=== PATIENT | male | born 1945 | race Caucasian/White ===

== ENCOUNTER 2017-07-27 15:57 | Inpatient (IN) | payer MEDICARE, OTHER, SELFPAY ==
[2017-07-27] VITALS (8 sets, daily range): BP systolic 109–151; BP diastolic 71–80; PULSE 100–121; RESP 15–20; TEMP 36.1–37.1; O2SAT 94–95; BMI 34.4; BMI 34.5; BMI 35.4
--- NOTE | 2017-07-27 16:30 | RAD_ITS ---
STUDY: X-RAY CHEST REASON FOR EXAM: Male, 71 years old. Wheezing. Abdominal pain. TECHNIQUE: Single frontal view of the chest. COMPARISON: 01/08/2016 FINDINGS: There is stable mild hyperexpansion. There is no demonstrated pleural abnormality. There is borderline cardiomegaly unchanged. Normal mediastinum and shaji. Normal visualized pulmonary arteries. There is aortic tortuosity unchanged. Normal visualized thoracic spine. Normal visualized ribs, clavicles, and shoulders. There is no demonstrated abnormality of the visualized soft tissue structures of the upper abdomen. RAD/Chest 1 View (Portable) IMPRESSION: Stable cardiomegaly with hyperexpansion. No acute pathology. Electronically Signed: Eugenio Santiago MD at 17:04 EST , Service support ,
--- NOTE | 2017-07-27 16:30 | CT_ITS ---
CT Abdomen And Pelvis W/O Contrast INDICATION: ABDOMINAL PAIN IN THE RIGHT LOWER ABDOMEN X3 WEEKS LIVER TRANSPLANT IN Jul COMPARISON: None TECHNIQUE: Noncontrast axial CT examination of the abdomen and pelvis with coronal and sagittal reformatted images. Radiation dose optimization technique applied. FINDINGS: Visualized lung bases are clear. The heart size is normal. There is marked wall thickening of the visualized distal esophagus and multiple enlarged lymph nodes are seen adjacent to the distal esophagus, measuring up to 1.5 cm in size. The stomach is decompressed. There is severe wall thickening of the duodenum with marked surrounding fat stranding and multiple prominent lymph nodes in the mesentery measuring up to 2.3 cm. The mid and distal small bowel is fluid-filled, but otherwise unremarkable. The colon is decompressed. The liver demonstrates postsurgical changes from liver transplant. No evidence of ductal dilatation. The spleen contains multiple calcified granulomas. The kidneys are without evidence of nephrolithiasis or hydronephrosis. There is no evidence of free air or free fluid. The osseous structures appear age-appropriate with degenerative disc disease at L5-S1.. CT/Abdomen/Pelvis without Cont IMPRESSION: Diffuse wall thickening of the distal esophagus with enlarged adjacent lymph nodes, could be reactive, neoplastic process is not excluded, further evaluation recommended. Marked focal wall thickening of the duodenum with severe adjacent fat stranding and multiple enlarged lymph nodes in the vicinity, compatible with duodenitis or neoplastic process, further evaluation recommended. Status post liver transplant. at 1754 Reported and signed by: Olya Swain MD Electronically Signed: Olya Swain MD at 16:52 EST Tel , Service support ,
--- NOTE | 2017-07-27 16:30 | EKG12_ITS ---
Test Reason : ABD PAIN Blood Pressure : / mmHG Vent. Rate : 106 BPM Atrial Rate : 106 BPM P-R Int : 194 ms QRS Dur : 118 ms QT Int : 342 ms P-R-T Axes : 047 036 003 degrees QTc Int : 454 ms Somatic/motion artifact Sinus tachycardia Right bundle branch block Confirmed by DARINEL AMBRIZ, OLLIE ([id number]), technical editor MARIEL COOPER ([id number]) on 07/28/2017 10:08:21 AM Referred By: HARVEY Confirmed By:OLLIE TENA MD
--- NOTE | 2017-07-27 16:33 | ED.VISSUMM ---
- ER Visit Summary Date of Service: 07/27/17 Chief Complaint: Abdominal pain History of Present Illness: The patient is a 71 M who is status post liver transplant in 2006. Presents today with upper and lower abdominal pain. Symptoms started about 3 weeks ago. They have been getting worse over the past 3 weeks. He has associated nausea and vomiting. He is not taking much by mouth. He said he never felt this way before. He denies any other surgical history. He does have a history of alcoholism. He most recently drank bout a week ago. He was drinking 2-3 drinks per day at that time. He is a smoker. Physical Examination: Afebrile. Tachycardic at 121. Blood pressure 109/76. Patient appears uncomfortable but not toxic or in distress. Skin is normal in color without jaundice or pallor. Heart is regular. Lungs show diffuse expiratory wheeze throughout. Abdomen is distended and tender to palpation over the upper hemiabdomen and in the suprapubic area. No guarding or rebound. Skin appears normal. No peripheral edema noted. Test Results: EKG, chest x-ray and troponin pending. CT abdomen pending. Lab work and urinalysis pending. Emergency Department Course and Treatment: Patient was treated with DuoNeb, morphine, Zofran, and IV fluids while awaiting results. White count 15.3, sodium 133, potassium 6, glucose 143, BUN 31, creatinine 1.99. Lipase normal. INR 1.4 and PTT 33.9. Troponin normal. Lactate normal. Urinalysis pending. EKG showed sinus rhythm at a rate of 106. No sign of acute ischemia or infarction. Chest x-ray showed stable changes with cardiomegaly. CT of the abdomen showed a thickened esophagus with reactive lymph nodes. He also had duodenal thickening with stranding. Neoplastic process was also considered. Patient received pain meds, nausea meds, and fluids. He also had breathing treatments, calcium, insulin, dextrose for his hyperkalemia. For his abnormal CT findings with stranding, he was treated with Cipro and Flagyl. Cultures are pending. Patient was discussed with Dr. Young who will be consulted on this patient for possible endoscopy. Hospitalist, Dr. Dick will admit. Treatment Plan: As above Disposition: Admission Impression: 1. Esophagitis 2. Duodenitis 3. Hyperkalemia This note was generated with Dragon dictation software. It may contain incorrect words, spelling, and punctuation that were not noted in review of the chart prior to signing ED Disposition - Plan for ED Patient: Chief Complaint: Abd Pain Referrals: Wilver Garcias MD [Primary Care Provider] -
[2017-07-27] MEDS: Ondansetron 4 MG/2 ML Vial IV ×2 (16:59→23:25)
[2017-07-27] MEDS: 0.9% Normal Saline 1,000 ML 125 ML IV (16:59)
[2017-07-27] MEDS: Ipratropium/Albuterol Sulfate 3 ML AMPUL.NEB INHALATION (16:59)
[2017-07-27 17:09] LABS: Absolute Lymphocyte Count 1.29 X10^3/ul (0.83-4.51); Absolute Neutrophil Count 12.3 X10^3/uL (2.0-7.7); Basophil# 0.06 X10^3/uL; Basophil% 0.4 % (0-1); Eosinophil# 0.31 X10^3/uL; Hematocrit 47.5 % (40-54); Hemoglobin 16.1 g/dl (13.0-16.5); Lymphocyte # 1.29 X10^3/ul (4.0); Lymphocyte % 8.4 % (19-41); Mean Corp Hgb Conc 33.9 g/gl (32-36); Mean Corpuscular Hgb 34.4 pg (27.0-32.0); Mean Corpuscular Volume 101.5 fL (80-94); Mean Platelet Vol. 11.2 fl (6.2-12.0); Monocyte# 1.26 X10^3/uL; Monocyte% 8.2 % (0-10); Neutrophil # 12.32 X10^3/uL (2.7-7.7); Neutrophil % 80.7 % (47-70); Platelet Count 372 K/mm3 (150-450); RBC Distribution Width CV 12.6 % (11.6-14.6); RBC Distribution Width SD 46.7 fl (35.1-43.9); Red Blood Count 4.68 M/mm3 (4.6-6.2); White Blood Count 15.3 K/mm3 (4.4-11.0)
[2017-07-27 17:11] LABS: International Normalized Ratio 1.4; Prothrombin Time (Protime)PT. 16.4 SECONDS (11.7-14.9)
[2017-07-27 17:12] LABS: Partial Thromboplast Time 33.9 Seconds (24.1-36.2)
[2017-07-27 17:13] LABS: POSITIVE COUNT NO; POSITIVE DIFFERENTIAL NO; POSITIVE MORPHOLOGY NO
[2017-07-27 17:48] LABS: Lactic Acid 0.9 mmol/L (0.4-2.0)
[2017-07-27 17:49] LABS: ALB/GLOB Ratio 0.7 RATIO (0.9-2.4); AST(SGOT) 20 U/L (15-37); Alanine Aminotransfer ALT/SGPT 29 U/L (16-61); Albumin, Serum 2.9 g/dL (3.2-5.0); Alkaline Phosphatase 101 U/L (45-117); Anion Gap 9 (5-15); BUN 31 mg/dL (7-18); BUN/Creat Ratio 15.6 RATIO (10-20); Calcium,Total 8.7 mg/dL (8.5-10.1); Chloride 103 mmol/L (98-107); Creatinine, Serum 1.99 mg/dL (0.70-1.30); EST Glomerular Filtration Rate 35 mL/min (>60); Est Glom Filt Rate - Afr Amer 43 mL/min (>60); Estimated Creatinine Clearance 31.83 ml/min; Globulin 4.2 g/dL (2.2-4.2); Glucose 143 mg/dL (74-106); Lipase 41 U/L (73-393); Protein, Total 7.1 g/dL (6.4-8.2); Sodium Level 133 mmol/L (136-145)
--- NOTE | 2017-07-27 17:49 | ED.RN ---
potassium 6.0 called from the lab. dr alvarez aware
[2017-07-27] MEDS: Albuterol 2.5 MG/3 ML VIAL.NEB. INHALATION (18:14)
[2017-07-27] MEDS: Dextrose 50%-Water 25 GM/50 ML DISP.SYRIN IV (18:36)
--- NOTE | 2017-07-27 19:44 | PCM.HP.STD ---
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 The pain is worse every time he eats, followed by nausea and vomiting. He has a history of alcohol abuse and states his last alcoholic beverage was 1 week ago. He has an elevated WBC count of 15,[address] scans shows duodenitis vs neoplastic process. Dr Morales has been notified by ER physician and agreed to consult on the case. The patient is now more comfortable than when he first arrived. He will be made NPO and given IV fluids with surgical consult and labs in the AM. Past Medical History Past Medical History (Chronic Problems): Chronic Problems Liver transplanted (Chronic) in 2006 at [facility]; on prograft 2g bid Alcohol abuse (Chronic) Alcohol abuse following liver transplant (Chronic) Diabetes mellitus (Chronic) HTN (hypertension) (Chronic) Depression (Chronic) Non-healing non-surgical wound (Chronic) Allergies cortisone [Cortisone] Allergy (Verified 07/27/17 15:59) Angioedema Penicillins Allergy (Verified 07/27/17 15:59) Unknown Home Medications: Ambulatory Orders Medication Instructions Recorded Amlodipine [Norvasc] 5 mg PO DAILY 11/19/13 Levothyroxine [Synthroid] 75 mcg PO DAILY 11/19/13 Lisinopril [Zestril] 40 mg PO DAILY 11/19/13 Smz/Tmp Ds [Bactrim Ds] 1 tablet PO MOWEFR 11/19/13 Celecoxib [Celebrex] 100 mg PO DAILY 06/09/16 Folic Acid 1 mg PO DAILY 06/09/16 Insulin Aspart [Novolog Flexpen 5 - 10 units SC TIDCM 06/09/16 ([facility])] Insulin Glargine,Hum.rec.anlog 30 unit SQ BID 06/09/16 [Lantus] Lactulose [Chronulac, Cephulac] 20 gm PO BID PRN 06/09/16 Lorazepam [Ativan] 0.5 mg PO BID PRN 06/09/16 Magnesium Oxide [Magnesium] 500 mg PO BID 06/09/16 Menthol/Lanolin/Calamine/Znox 1 applic TOPICAL DAILY 06/09/16 [Calmoseptine Ointment] Tacrolimus Anhydrous [Prograf] 2 mg PO BID 06/09/16 Surgical History: - - Liver transplantation, parathyroidectomy Smoking Status: Current every day smoker - *Family History Paternal History Items: No pertinent history Review of Systems Constitutional: Denies: Chills, Fever, Weight Change HEENT: Denies: Head Aches, Sinus Congestion, Sinus Drainage Cardiovascular: Denies: Chest Pain, Palpitations Respiratory: Reports: Wheezing. Denies: Cough, Shortness of breath at rest, Sputum production Gastrointestinal: Reports: Abdominal Pain, Nausea, Vomiting. Denies: Melena Genitourinary: Denies: Dysuria Musculoskeletal: Denies: Joint Pain, Joint Tenderness Skin: Denies: Rash, Wounds Neurological: Denies: Numbness, Tingling, Focal weakness Psychiatric: Denies: Anxiety, Depression, Homicidal Ideations, Suicidal Ideations Hematologic/ Lymphatic: Denies: Easy Bruising, Easy Bleeding VTE Information - Inpt Only VTE Present on Admission: No VTE Mechan Device Prophylaxis: None VTE Pharm Prophylaxis ordered?: Yes Patient Problems: Active and Suspected Problems Abdominal pain (Acute) Nausea & vomiting (Acute) - Physical Exam General: Alert, Oriented x3, Cooperative HEENT: Atraumatic, Normocephalic Neck: Supple Lungs: Clear to auscultation, Normal air movement, No rhonchi, No rales, Wheezes Cardiovascular: Regular rate, Regular Rhythm, Normal S1, Normal S2, No murmurs Abdomen: Distended, Obese, Tender - generalized Extremities: No edema, Capillary Refill Less than 3 Seconds Skin: No rashes, No breakdown Musculoskeletal: No Tenderness to Palpation of Joints or Extremities Neurological: Neuro grossly intact Psych/Mental Status: Normal Affect, Appropriate Vital Signs Temp Pulse Resp BP Pulse Ox 97 F L 100 20 H 138/79 H 94 07/27/17 15:57 07/27/17 18:14 07/27/17 18:14 07/27/17 19:27 07/27/17 18:07 Oxygen Delivery Method Room Air Weight: 220 lb 0.341 oz Body Mass Index (BMI) 34.4 Laboratory Tests Past 24 Hrs 07/27/17 07/27/17 07/27/17 16:45 16:45 16:45 WBC 15.3 H RBC 4.68 Hgb 16.1 Hct 47.5 MCV 101.5 H MCH 34.4 H MCHC 33.9 RDW 12.6 RDW Differential 46.7 H Plt Count 372 MPV 11.2 Immature Gran % (Auto) 0.300 Neut % (Auto) 80.7 H Lymph % (Auto) 8.4 L [place] % (Auto) 8.2 Eos % (Auto) 2.0 Baso % (Auto) 0.4 Absolute Neuts (auto) 12.3 H Absolute Lymphs (auto) 1.29 Total Counted Not Reportable PT 16.4 H INR 1.4 APTT 33.9 Sodium 133 L Potassium 6.0 H* Chloride 103 Carbon Dioxide 21.0 Anion Gap 9 BUN 31 H Creatinine 1.99 H Estim Creat Clear Calc 31.83 Est GFR (MDRD) Af Amer 43 L Est GFR (MDRD) Non-Af 35 L BUN/Creatinine Ratio 15.6 Glucose 143 H Lactic Acid Calcium 8.7 Total Bilirubin 0.40 AST 20 ALT 29 Alkaline Phosphatase 101 Troponin I < 0.02 Total Protein 7.1 Albumin 2.9 L Globulin 4.2 Albumin/Globulin Ratio 0.7 L Lipase 41 L 07/27/17 16:45 WBC RBC Hgb Hct MCV MCH MCHC RDW RDW Differential Plt Count MPV Immature Gran % (Auto) Neut % (Auto) Lymph % (Auto) [place] % (Auto) Eos % (Auto) Baso % (Auto) Absolute Neuts (auto) Absolute Lymphs (auto) Total Counted PT INR APTT Sodium Potassium Chloride Carbon Dioxide Anion Gap BUN Creatinine Estim Creat Clear Calc Est GFR (MDRD) Af Amer Est GFR (MDRD) Non-Af BUN/Creatinine Ratio Glucose Lactic Acid 0.9 Calcium Total Bilirubin AST ALT Alkaline Phosphatase Troponin I Total Protein Albumin Globulin Albumin/Globulin Ratio Lipase Assessment/Plan Active and Suspected Problems Abdominal pain (Acute) Nausea & vomiting (Acute) Chronic Problems Liver transplanted (Chronic) in 2006 at [facility]; on prograft 2g bid Alcohol abuse (Chronic) Alcohol abuse following liver transplant (Chronic) Diabetes mellitus (Chronic) HTN (hypertension) (Chronic) Depression (Chronic) Non-healing non-surgical wound (Chronic) Plan - admit to General Medical floor - Make NPO except for anti-rejection medication with sips and continue IV fluids at 100 cc/hour - Consult Dr Morales for surgical evaluation - zofran prn nausea and morphine prn pain - may continue antirejection drugs with sips - CBC, CMP, in am - LMWH for DVT prophylaxis Code Visit Inpatient E&M: 81510 Init Hosp L3
[2017-07-27 20:24] LABS: Bacteria 0 SEEN /hpf (None Seen); Mucous, Urine 0 SEEN /hpf (<or=2+); Red Blood Cells-Urine 0 SEEN /hpf (0-5); Squamous Epithelial Cells - UA 0 SEEN /hpf (0-5); White Blood Cells 0 SEEN /hpf (0-5)
[2017-07-27 20:36] LABS: Color, Urine Yellow (Yellow); Glucose, Dipstick 50 mg/dl (Normal); Ketone-Dipstick 50 mg/dl (Negative); Leukocyte Esterase-Dipstick Negative /ul (Negative); Nitrite-Dipstick Negative (Negative); Occult Blood-Urine Negative /ul (Negative); Protein-Dipstick 15 mg/dl (Negative); Urine Bilirubin Dipstick 1 mg/dL (Negative); Urine Clarity Clear (Clear); Urine Urobilinogen Normal (Normal)
[2017-07-27 22:09] LABS: Anion Gap 8 (5-15); BUN 31 mg/dL (7-18); BUN/Creat Ratio 16.8 RATIO (10-20); Calcium,Total 8.5 mg/dL (8.5-10.1); Chloride 106 mmol/L (98-107); Creatinine, Serum 1.85 mg/dL (0.70-1.30); EST Glomerular Filtration Rate 38 mL/min (>60); Est Glom Filt Rate - Afr Amer 47 mL/min (>60); Estimated Creatinine Clearance 34.24 ml/min; Glucose 210 mg/dL (74-106); Potassium 5.7 mmol/L (3.5-5.1); Sodium Level 134 mmol/L (136-145)
[2017-07-27] MEDS: Tacrolimus Anhydrous 1 MG Capsule 2 MG PO (23:06)
[2017-07-27] MEDS: Smz/Tmp Ds Tablet 1 TABLET PO (23:06)
[2017-07-27 23:16] LABS: Bedside Glucose 174 mg/dL (70-110)
[2017-07-27] MEDS: 0.9% NaCl Peripheral Flush Adult/Peds IV (23:26)
[2017-07-28] VITALS (18 sets, daily range): BP systolic 102–158; BP diastolic 58–100; PULSE 88–117; RESP 16–20; TEMP 36.2–36.8; O2SAT 94–98; BMI 34.5
--- NOTE | 2017-07-28 | IMM_PTH ---
PATIENT: TEX RICHMOND LOC: MS2 U#:[id number] AGE/SX: 71/M [place] [facility] [place]/27/[address]: Dr. Era rUban MD : 1945 BED: 1 DIS: 07/31/2017 SPEC #: [id number] RECD: 07/29/17 10:15 STATUS: TEO REQ #: [id number] SHIRLENE: 07/28/17 00:[address]: Era Urban DEPT: IMMUNOHISTOCHEMISTRY RECD BY: Mer Hanson ENTERED: 07/29/17 10:16 SP TYPE: IMMUNO OTHR DR: MD Dr. Juan Alberto Baca MD Dr. Victor Velasquez, MD Tissues: Stomach, NOS Procedures: H Pylori (initial) PHYSICIAN & INSTITUTION [place] [address] SPECIMEN INFORMATION: Tissue Source: Antrum biopsy Clinical Info: Severe duodenal ulceration and gastritis Specimen Number: [id number] CPT code: 53379 METHODOLOGY: Deparaffinized sections of prefer/formalin-fixed tissue or PAP/DQ stained slides are incubated with monoclonal/polyclonal antibodies/oligonucleotide probes. Localization is made via biotin free immunoperoxidase method. Appropriate controls are performed and reacted as expected. Results on target cell population are indicated in the following table: RESULTS: ANTIBODY / CLONE RESULT H Pylori (polyclonal) negative These tests were developed and their performance characteristics determined by [facility]. They may not have been cleared or approved by the U.S. Food and Drug Administration. The FDA has determined that such clearance or approval is not necessary. INTERPRETATION: Antrum, biopsy: Negative for Helicobacter pylori organisms. SJ:latrice 07/29/17
[2017-07-28] MEDS: 0.9% Normal Saline 1,000 ML 100 ML IV ×2 (01:40→13:04)
[2017-07-28] MEDS: 0.9% NaCl Peripheral Flush Adult/Peds IV ×7 (02:41→17:35)
[2017-07-28] MEDS: Ciprofloxacin 400 MG/200 ML BAG 200 MG IV ×2 (06:06→19:55)
[2017-07-28] MEDS: Ondansetron 4 MG/2 ML Vial IV ×2 (06:07→15:21)
[2017-07-28 06:21] LABS: Bedside Glucose 145 mg/dL (70-110)
[2017-07-28] MEDS: Tacrolimus Anhydrous 1 MG Capsule 2 MG PO ×2 (08:03→21:50)
[2017-07-28] MEDS: Folic Acid 1 MG Tablet PO (08:04)
[2017-07-28] MEDS: Thiamine Hydrochloride 100 MG Tablet PO ×2 (08:04→16:31)
--- NOTE | 2017-07-28 11:23 | CON.PCM_ITS ---
Reason for Consult Date of Consultation: 07/28/17 History of Present Illness: The patient is a 71 year old M complaint of worsening dysphagia, regurgitation, early satiety and weight loss. For at least the past 3 weeks, the patient noted increasing difficulty with eating food. He states that it feels like food gets caught in his distal esophagus and he vomited back up the food contents. He notes just food. He denies bile. He denies coffee grounds. He denies bloody vomitus. He states this is different than approximately 5 years previously when he had hematemesis from bleeding esophageal varices. He is noted approximately 10 pound weight loss. He was admitted with the above complaints. CT scan was obtained - this demonstrated both thickening and inflammation in the distal esophagus along with periesophageal lymphadenopathy worrisome for malignancy. No comment was made for distal esophageal varices. The patient was also noted to have thickening of the duodenum with stranding along the duodenum, which was worried some for peptic ulcer disease versus malignancy. the patient has a strong history of alcohol abuse. He has a distant history of delirium tremens and alcohol withdrawal episodes. He has not had alcohol withdrawal episodes for some time. The patient had a liver transplant in 2006 due to cirrhosis. The patient still drinks and smokes, although not to the same extent as before the transplant. He has, however, been admitted in the past for episodes of acute intoxication. There were again no true DVTs. He has gone through alcohol withdrawal program as multiple times and is persistently failed. he has noted a previous history of type 2 diabetes, major depression, hypothyroidism. 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 He had an esophagram which was felt to demonstrate achalasia. again, more recently, he stated he had vomited up blood and understood that he had esophageal varices. heat undergone upper endoscopy in 2013 and this demonstrated no specific varices but was felt to have proximal gastric portal hypertensive gastropathy. he had been seen by Martha Fernandez for these dysphagia symptoms in March. It was recommended he be referred to gastroenterology at [facility]. Apparently, the patient was able to arrange transportation to [facility]. An esophagram was ordered but not completed. My review of the CT scan makes me believe that he has a distal esophageal thickening due to portal hypertensive changes and what I see is more likely varices in the esophagus and gastric region, then I think adenopathy. I do see inflammation in the duodenum and I see what seemed to be too air pockets off of the lumen of the third and fourth portion of the duodenum which might be a duodenal diverticulum. Past Medical History Past Medical History (Chronic Problems): Chronic Problems Liver transplanted (Chronic) in 2006 at [facility]; on prograft 2g bid Alcohol abuse (Chronic) Alcohol abuse following liver transplant (Chronic) Diabetes mellitus (Chronic) HTN (hypertension) (Chronic) Depression (Chronic) Non-healing non-surgical wound (Chronic) Allergies cortisone [Cortisone] Allergy (Verified 07/27/17 15:59) Angioedema Penicillins Allergy (Verified 07/27/17 15:59) Unknown Home Medications: Ambulatory Orders Medication Instructions Recorded Amlodipine [Norvasc] 5 mg PO DAILY 11/19/13 Levothyroxine [Synthroid] 75 mcg PO DAILY 11/19/13 Lisinopril [Zestril] 40 mg PO DAILY 11/19/13 Smz/Tmp Ds [Bactrim Ds] 1 tablet PO MOWEFR 11/19/13 Celecoxib [Celebrex] 100 mg PO DAILY 06/09/16 Folic Acid 1 mg PO DAILY 06/09/16 Insulin Aspart [Novolog Flexpen 5 - 10 units SC TIDCM 06/09/16 ([facility])] Insulin Glargine,Hum.rec.anlog 30 unit SQ BID 06/09/16 [Lantus] Lactulose [Chronulac, Cephulac] 20 gm PO BID PRN 06/09/16 Lorazepam [Ativan] 0.5 mg PO BID PRN 06/09/16 Magnesium Oxide [Magnesium] 500 mg PO BID 06/09/16 Menthol/Lanolin/Calamine/Znox 1 applic TOPICAL DAILY 06/09/16 [Calmoseptine Ointment] Tacrolimus Anhydrous [Prograf] 2 mg PO BID 06/09/16 Surgical History: - - Liver transplantation, parathyroidectomy Smoking Status: Current every day smoker - *Family History Paternal History Items: No pertinent history Patient Problems: Active and Suspected Problems Abdominal pain (Acute) Nausea & vomiting (Acute) - Physical Exam General: Alert, Oriented x3, Cooperative Lungs: Diminished, - - course Cardiovascular: Regular rate, Regular Rhythm Abdomen: Bowel Sounds Present, Soft, Distended, Obese, Tender - in the epigastrium and right paramedian area Vital Signs Temp Pulse Resp BP Pulse Ox 97.6 F L 90 18 104/63 94 07/28/17 09:35 07/28/17 09:35 07/28/17 09:35 07/28/17 09:35 07/28/17 09:35 Oxygen Delivery Method Room Air Weight: 99.9 kg Body Mass Index (BMI) 34.5 Intake and Output for Last 24 Hours 07/26/17 07/27/17 07/28/17 23:59 23:59 23:59 Intake Total 1326 / 1326 Output Total 700 / 700 Balance 626 / 626 Laboratory Tests Past 24 Hrs 07/27/17 07/27/17 20:18 21:40 Sodium 134 L Potassium 5.7 H Chloride 106 Carbon Dioxide 20.0 L Anion Gap 8 BUN 31 H Creatinine 1.85 H Estim Creat Clear Calc 34.24 Est GFR (MDRD) Af Amer 47 L Est GFR (MDRD) Non-Af 38 L BUN/Creatinine Ratio 16.8 Glucose 210 H Calcium 8.5 Urine Color Yellow Urine Clarity Clear Urine pH 5.0 Ur Specific [place] 1.020 Urine Protein 15 H Urine Glucose (UA) 50 H Urine Ketones 50 H Urine Occult Blood Negative Urine Nitrite Negative Urine Bilirubin 1 H Urine Urobilinogen Normal Ur Leukocyte Esterase Negative Urine RBC 0 SEEN Urine WBC 0 SEEN Ur Squamous Epith Cells 0 SEEN Urine Bacteria 0 SEEN Urine Mucus 0 SEEN POC Glucose 07/28/17 07/27/17 06:12 23:12 POC Glucose 145 H 174 H Assessment/Plan Active and Suspected Problems Abdominal pain (Acute) Nausea & vomiting (Acute) CT scan suspicious for distal esophagus and duodenal processes-status post liver transplant, alcoholism, tobacco abuse, history of esophageal varices I plan to perform upper endoscopy. We will selectively planned for biopsy based on the above findings and the above concerns. Patient understands the risks, benefits, alternatives, and possible complications including but not limited to variceal bleeding, perforation. Patient understands and consents to the above procedure. I would be judicious with anticoagulation given the patient's above findings. Between alcoholism, liver transplant and immunosuppressive medications, the patient's at significant risk for peptic ulcer disease. After finding the ulcers at endoscopy.-The patient notes he takes significant quantities of nonsteroidal medications. Additionally. Patient denies recent episodes of alcohol withdrawal, but given his past history is at risk for withdrawal type symptoms. If the patient does have a degree of varices and bleeds from those. This would be a particularly challenging event given the patient's transplant status. Blood thinner use and overall comorbidities. The patient has what seems to be significant distention on exam. The CT scan does not demonstrate ascites or abdominal distention just significant abdominal adiposity
--- NOTE | 2017-07-28 12:02 | GASB_PTH ---
PATIENT: TEX RICHMOND LOC: MS2 U#:[id number] AGE/SX: 71/M [place] [facility] [place] RE07/27/[address]: Dr. Era Urban MD : 1945 BED: 1 DIS: 07/31/2017 SPEC #: [id number] RECD: 07/28/17 14:24 STATUS: TEO REQ #: [id number] SHIRLENE: 07/28/17 12:[address]: Juan Alberto Morales DEPT: SURGICAL PATHOLOGY RECD BY: Fidencio Oleary ENTERED: 07/28/17 14:24 SP TYPE: Gastric Bx OTHR DR: MD Dr. Davian Amin MD Dr. Victor Velasquez, MD Tissues: Gastric mucous membrane Procedures: Surgery Specimen Level IV Comments: @ Ordering doctor for SUIV edited from to @ by KALEY at 07/29/17 08 @ Submitting doctor edited from to @ by JOSETTEOD at 07/29/17 0838 HEADER OPERATION: EGD with biopsy PRE-OP DIAGNOSIS: Severe duodenal ulceration and gastritis TISSUE SUBMITTED: Antrum biopsy MICROSCOPIC DIAGNOSIS Antrum, biopsy: Mild gastritis. SJ:latrice 07/29/17 COMMENT The results of immunohistochemistry for Helicobacter pylori will be reported separately ([id number]). MICROSCOPIC DESCRIPTION Slides are reviewed. The specimen shows fragments of gastric mucosa with chronic inflammatory cell infiltrates in the lamina propria consisting of lymphocytes and plasma cells, consistent with mild chronic gastritis. GROSS DESCRIPTION Received in fixative is one container labeled with the patient's name and designated antrum biopsy. The specimen consists of one irregular fragment of light martinez soft tissue that measures 0.3 x 0.2 x 0.1 cm. The specimen is totally submitted in one cassette. / AM:latrice 07/28/17 TC:3 CPT: 55100
--- NOTE | 2017-07-28 12:15 | PCM.OPRPT ---
Report of Operation Date of Procedure: 07/28/17 Pre-Operative Diagnosis: ALCOHOL ABUSE, DYSPHAGIA, VOMITING, ABNORMAL CT SCAN - DISTAL ESOPHAGUS, DUODENUM Post-Operative Diagnosis: SEVERE DUODENITIS WITH ULCERATIONS, GASTRITIS, DISTAL ESOPHAGITIS, ESOPHAGEAL VARICES Surgery/Procedure Performed:: EGD WITH BIOPSY corporate fitness program coordinator: None Anesthesiologist: Maxi Brewer - ASA3/4 Specimen's removed: ANTRAL BIOPSY FOR H PYLORI AND PATH Description of Procedure: The patient was brought to the endoscopy suite. Sign in was performed verifying patient, site, planned procedure, critical nursing information, the patient was monitored with cardiac, pulse oximetric, and blood pressure monitoring devices. Monitored anesthetic care was provided for sedation. Following IV sedation and after the oropharynx was sprayed with Cetacaine spray, a video gastroscope was inserted in the oropharynx and advanced down the esophagus without difficulty. The scope was advanced through the stomach, through the pylorus through the duodenum to the proximal jejunum. there was irritation of the duodenum through to the fourth portion. As the scope was withdrawn. There were multiple areas of erosive duodenitis with some more superficial ulcers with losing without significant active bleeding, and other areas with large punched out ulcerations. In the second portion the duodenum. There appeared to be an ulceration that had a white base and was suspicious for full-thickness perforation likely into the retroperitoneal tissues.the most impressive of these ulcerations was documented on image 10. No active bleeding was felt to be persistent enough to warrant injection with epinephrine, or other mechanisms to control bleeding. As the scope was withdrawn. The patient have mild to moderate antral gastritis. Biopsies were taken at this location for H. pylori and pathology. As the scope was retroflexed, there was no significant hiatal hernia.again, in the proximal stomach. There was felt to be changed since the portal hypertensive gastropathy. There was noted to be distal esophageal irritation consistent with reflux esophagitis. There were no obvious submucosal varices noted, but the GE junction had enough of an irregular pattern that made me feel he did have a degree of variceal changes. Deeper to the mucosa and therefore did not perform biopsy of the area. As the scope was withdrawn, the rectus esophagus was unremarkable. The patient tolerated the procedure well and was brought to recovery in stable condition. I had ordered the patient to be started on IV Protonix, given the severity and extent of his duodenal ulcers and duodenitis and communicated this to his primary care provider.
--- NOTE | 2017-07-28 12:20 | OP.PCM_ITS ---
Report of Operation Date of Procedure: 07/28/17 Pre-Operative Diagnosis: ALCOHOL ABUSE, DYSPHAGIA, VOMITING, ABNORMAL CT SCAN - DISTAL ESOPHAGUS, DUODENUM Post-Operative Diagnosis: SEVERE DUODENITIS WITH ULCERATIONS, GASTRITIS, DISTAL ESOPHAGITIS, ESOPHAGEAL VARICES Surgery/Procedure Performed:: EGD WITH BIOPSY design editor: None Anesthesiologist: Maxi Brewer - ASA3/4 Specimen's removed: ANTRAL BIOPSY FOR H PYLORI AND PATH Description of Procedure: The patient was brought to the endoscopy suite. Sign in was performed verifying patient, site, planned procedure, critical nursing information, the patient was monitored with cardiac, pulse oximetric, and blood pressure monitoring devices. Monitored anesthetic care was provided for sedation. Following IV sedation and after the oropharynx was sprayed with Cetacaine spray , a video gastroscope was inserted in the oropharynx and advanced down the esophagus without difficulty. The scope was advanced through the stomach, through the pylorus through the duodenum to the proximal jejunum. there was irritation of the duodenum through to the fourth portion. As the scope was withdrawn. There were multiple areas of erosive duodenitis with some more superficial ulcers with losing without significant active bleeding, and other areas with large punched out ulcerations. In the second portion the duodenum. There appeared to be an ulceration that had a white base and was suspicious for full-thickness perforation likely into the retroperitoneal tissues.the most impressive of these ulcerations was documented on image 10. No active bleeding was felt to be persistent enough to warrant injection with epinephrine, or other mechanisms to control bleeding. As the scope was withdrawn. The patient have mild to moderate antral gastritis. Biopsies were taken at this location for H. pylori and pathology. As the scope was retroflexed, there was no significant hiatal hernia.again, in the proximal stomach. There was felt to be changed since the portal hypertensive gastropathy. There was noted to be distal esophageal irritation consistent with reflux esophagitis. There were no obvious submucosal varices noted, but the GE junction had enough of an irregular pattern that made me feel he did have a degree of variceal changes. Deeper to the mucosa and therefore did not perform biopsy of the area. As the scope was withdrawn, the rectus esophagus was unremarkable. The patient tolerated the procedure well and was brought to recovery in stable condition. I had ordered the patient to be started on IV Protonix, given the severity and extent of his duodenal ulcers and duodenitis and communicated this to his primary care provider.
[2017-07-28 13:11] LABS: Bedside Glucose 159 mg/dL (70-110)
--- NOTE | 2017-07-28 13:34 | PCM.PN.HOSP ---
Patient Problems: Active and Suspected Problems Abdominal pain (Acute) Nausea & vomiting (Acute) Subjective: Patient was seen and examined. He had EGD done today showed dysphagia varices, gastritis, multiple duodenal ulcers. Started on continuous PPI and kept n.p.o. and was noted in the immediate post operative period to have worsening distention of the abdomen, with generalized discomfort and nausea. Denies any dizziness or shortness of breath or chest pain. Complains of abdominal discomfort Vitals/I&O's: Vital Signs Temp Pulse Resp BP Pulse Ox 98.2 F 105 H 20 H 131/88 H 95 07/28/17 12:59 07/28/17 12:59 07/28/17 12:59 07/28/17 12:59 07/28/17 12:59 Oxygen Flow Rate 3 Oxygen Delivery Method Nasal Cannula Weight: 99.9 kg Body Mass Index (BMI) 34.5 Intake and Output for Last 24 Hours 07/26/17 07/27/17 07/28/17 23:59 23:59 23:59 Intake Total 2426 / 2426 Output Total 850 / 850 Balance 1576 / 1576 General: Alert, Oriented x3, Cooperative, - - in mild distress and pain. HEENT: Atraumatic, PERRLA, EOMI, Normocephalic Oral: Moist Mucosa Neck: Supple, No JVD Lungs: Clear to auscultation, Normal air movement Cardiovascular: Regular rate, Regular Rhythm, Normal S1, Normal S2, No murmurs Abdomen: Bowel Sounds Present, Soft, Non Tender, Hypoactive Bowel Sounds, Distended, Tender - over epigastric region Extremities: Edema - Trace bilateral edema Skin: No rashes, No breakdown Musculoskeletal: No Tenderness to Palpation of Joints or Extremities Lymphatic: No Cervical, Supraclavicular, or Inguinal Adenopathy Neurological: Cranial nerves II-XII grossly intact, Neuro grossly intact Psych/Mental Status: Normal Affect, Appropriate Laboratory Results 07/27/17 20:18: Urine Color Yellow, Urine Clarity Clear, Urine pH 5.0, Ur Specific [place] 1.020, Urine Protein 15 H, Urine Glucose (UA) 50 H, Urine Ketones 50 H, Urine Occult Blood Negative, Urine Nitrite Negative, Urine Bilirubin 1 H, Urine Urobilinogen Normal, Ur Leukocyte Esterase Negative, Urine RBC 0 SEEN, Urine WBC 0 SEEN, Ur Squamous Epith Cells 0 SEEN, Urine Bacteria 0 SEEN, Urine Mucus 0 SEEN 07/27/17 21:40: Sodium 134 L, Potassium 5.7 H, Chloride 106, Carbon Dioxide 20.0 L, Anion Gap 8, BUN 31 H, Creatinine 1.85 H, Estim Creat Clear Calc 34.24, Est GFR (MDRD) Af Amer 47 L, Est GFR (MDRD) Non-Af 38 L, BUN/Creatinine Ratio 16.8, Glucose 210 H, Calcium 8.5 07/27/17 23:12: POC Glucose 174 H 07/28/17 06:12: POC Glucose 145 H 07/28/17 12:59: POC Glucose 159 H Current Medications Albuterol/Ipratropium (Duoneb) 3 ml INHALATION Q4HWA.RT [facility] Amlodipine Besylate (Norvasc) 5 mg PO DAILY [facility] Dextrose (D50w Syringe) 0 gm IV X1 PRN; Protocol PRN Reason: Hypoglycemia Enoxaparin Sodium (Lovenox) 40 mg SC DAILY@1000 [facility] Folic Acid (Folic Acid) 1 mg PO DAILY@0800 [facility] Glucagon () 1 mg IM .X1 PRN PRN Reason: Hypoglycemia Sodium Chloride () 1,000 mls @ 100 mls/hr IV .Q10H [facility] Last Admin: 07/28/17 01:40 Dose: 100 mls/hr Ciprofloxacin (Cipro) 400 mg in 200 mls @ 200 mls/hr IV Q12H [facility] Last Admin: 07/28/17 06:06 Dose: 200 mls/hr Metronidazole (Flagyl) 500 mg in 100 mls @ 100 mls/hr IV Q8H [facility] Last Admin: 07/28/17 09:32 Dose: 100 mls/hr Pantoprazole Sodium 80 mg/ (Sodium Chloride) 100 mls @ 10 mls/hr CONT INF Q10H [facility] Insulin Aspart (Novolog Flexpen (Bkc)) 0 units SC Q6 [facility] PRN Reason: Protocol Last Admin: 07/28/17 06:19 Dose: Not Given Levothyroxine Sodium (Synthroid) 75 mcg PO DAILY@0600 [facility] Magnesium Oxide (Mag-Ox 400) 400 mg PO BIDCM [facility] Morphine Sulfate (Morphine) 2 mg IV Q2H PRN PRN PRN Reason: SEVERE PAIN (6-10/10) Ondansetron HCl (Zofran) 4 mg IV Q6H PRN PRN PRN Reason: NAUSEA Last Admin: 07/28/17 06:07 Dose: 4 mg Sodium Chloride () 5 - 30 ml IV UD PRN PRN Reason: SALINE FLUSH Last Admin: 07/28/17 08:14 Dose: 10 ml Tacrolimus (Prograf) 2 mg PO BID [facility] Last Admin: 07/28/17 08:03 Dose: 2 mg [facility] Stop: 07/30/17 17:01 Last Admin: 07/28/17 08:04 Dose: 100 mg Trimethoprim/Sulfamethoxazole (Bactrim Ds) 1 tablet PO MoWeFr@0800 [facility] Last Admin: 07/27/17 23:06 Dose: 1 tablet Assessment/Plan Active and Suspected Problems Abdominal pain (Acute) Nausea & vomiting (Acute) 81-year-old male with past medical history of chronic liver disease status post transplant in 2006, hypothyroidism, hypertension admitted on 07/27/17 with abdominal pain, nausea, vomiting, diarrhea. Patient does have history of chronic alcohol use disorder and last drank alcohol about a week ago. 1. Acute abdominal pain secondary to acute gastritis, multiple duodenal ulcers, history of alcohol use disorder, history of continued NSAID use, s/p EGD with biopsy, on IV PPI drip, IV morphine as needed for pain, kept n.p.o., general surgery on consult 2. Hyperkalemia, no EKG changes, likely related to type 4RTA, will have to recheck BMP again 3. Leucocytosis, likely reactive, fever, started on IV Cipro and Flagyl, will continue antibiotics in light of contained perforation seen on EGD, CBCD in the morning 4. Acute kidney injury in a patient with normal baseline creatinine, admitted with creatinine of 1.99, secondary to dehydration from #1, will continue on IV fluids, recheck labs in a.m. 5. Chronic alcohol abuse s/p liver transplant, continue on tacrolimus and Bactrim 6. Hypertension, continue on amlodipine with holding parameters 7. Hypothyroidism, on levothyroxine 8. DVT prophylaxis with Lovenox subcu Code Visit Inpatient E&M: 97970 Subs Hosp L2
--- NOTE | 2017-07-28 13:38 | NURSING ---
Patient returned to unit from EGD and upon arrival received call from room from PACU nurse in patient's room, stating that they need a nurse. This RN went back to see patient and was notified by GATE SERVICES SUPERVISOR that patient stated that he wonders, if this is what dying feels like. This RN entered room patient tachypenic and tachycardic, dry heaving and c/o pain 8 or 9/10 to abdomen. Patient c/o shortness of breath but admits that he is feeling anxious. He states he saw the pictures from Dr. Morales and they scared the hell out of me. EAGLE Martinez entered immediately after this RN to assess patient- vitals taken and BGT checked. Protonix was initiated and IV morphine given to help with pain. Notified in report that patient was urinating small amounts but very frequently. Dr. Urban notified of urination issues and montero ordered and inserted via sterile technique via EAGLE Martinez, with immediate return of 200cc olivia evelia urine with sediment. Patient complaining of abdomen being larger than it was prior to leaving unit, EAGLE Martinez agreed with patient and Dr. Urban notified and requested to come see patient. Dr. Urban came quickly to unit and requested for Dr. Morales to be notified. This RN had paged Dr. Morales and notified him of patient's current condition. Dr. Morales states that he would like diet to return to NPO at this time and notes that he had to use a lot of air to visualize abdomen. Dr. Urban asked patient when his last use of alcohol was- to be aware of possible withdrawal. Patient states he should not go through withdraw because his last drink was 1 week ago. EAGLE Martinez starting 2nd IV at this time due to orders for IV antibiotics and IV protonix.
--- NOTE | 2017-07-28 14:00 | PN_ITS ---
Patient Problems: Active and Suspected Problems Abdominal pain (Acute) Nausea & vomiting (Acute) Subjective: Patient was seen and examined. He had EGD done today showed dysphagia varices, gastritis, multiple duodenal ulcers. Started on continuous PPI and kept n.p.o. and was noted in the immediate post operative period to have worsening distention of the abdomen, with generalized discomfort and nausea. Denies any dizziness or shortness of breath or chest pain. Complains of abdominal discomfort Vitals/I&O's: Vital Signs Temp Pulse Resp BP Pulse Ox 98.2 F 105 H 20 H 131/88 H 95 07/28/17 12:59 07/28/17 12:59 07/28/17 12:59 07/28/17 12:59 07/28/17 12:59 Oxygen Flow Rate 3 Oxygen Delivery Method Nasal Cannula Weight: 99.9 kg Body Mass Index (BMI) 34.5 Intake and Output for Last 24 Hours 07/26/17 07/27/17 07/28/17 23:59 23:59 23:59 Intake Total 2426 / 2426 Output Total 850 / 850 Balance 1576 / 1576 General: Alert, Oriented x3, Cooperative, - - in mild distress and pain. HEENT: Atraumatic, PERRLA, EOMI, Normocephalic Oral: Moist Mucosa Neck: Supple, No JVD Lungs: Clear to auscultation, Normal air movement Cardiovascular: Regular rate, Regular Rhythm, Normal S1, Normal S2, No murmurs Abdomen: Bowel Sounds Present, Soft, Non Tender, Hypoactive Bowel Sounds, Distended, Tender - over epigastric region Extremities: Edema - Trace bilateral edema Skin: No rashes, No breakdown Musculoskeletal: No Tenderness to Palpation of Joints or Extremities Lymphatic: No Cervical, Supraclavicular, or Inguinal Adenopathy Neurological: Cranial nerves II-XII grossly intact, Neuro grossly intact Psych/Mental Status: Normal Affect, Appropriate Laboratory Results 07/27/17 20:18: Urine Color Yellow, Urine Clarity Clear, Urine pH 5.0, Ur Specific [place] 1.020, Urine Protein 15 H, Urine Glucose (UA) 50 H, Urine Ketones 50 H, Urine Occult Blood Negative, Urine Nitrite Negative, Urine Bilirubin 1 H, Urine Urobilinogen Normal, Ur Leukocyte Esterase Negative, Urine RBC 0 SEEN, Urine WBC 0 SEEN, Ur Squamous Epith Cells 0 SEEN, Urine Bacteria 0 SEEN, Urine Mucus 0 SEEN 07/27/17 21:40: Sodium 134 L, Potassium 5.7 H, Chloride 106, Carbon Dioxide 20.0 L, Anion Gap 8, BUN 31 H, Creatinine 1.85 H, Estim Creat Clear Calc 34.24, Est GFR (MDRD) Af Amer 47 L, Est GFR (MDRD) Non-Af 38 L, BUN/Creatinine Ratio 16.8, Glucose 210 H, Calcium 8.5 07/27/17 23:12: POC Glucose 174 H 07/28/17 06:12: POC Glucose 145 H 07/28/17 12:59: POC Glucose 159 H Current Medications Albuterol/Ipratropium (Duoneb) 3 ml INHALATION Q4HWA.RT [facility] Amlodipine Besylate (Norvasc) 5 mg PO DAILY [facility] Dextrose (D50w Syringe) 0 gm IV X1 PRN; Protocol PRN Reason: Hypoglycemia Enoxaparin Sodium (Lovenox) 40 mg SC DAILY@1000 [facility] Folic Acid (Folic Acid) 1 mg PO DAILY@0800 [facility] Glucagon () 1 mg IM .X1 PRN PRN Reason: Hypoglycemia Sodium Chloride () 1,000 mls @ 100 mls/hr IV .Q10H [facility] Last Admin: 07/28/17 01:40 Dose: 100 mls/hr Ciprofloxacin (Cipro) 400 mg in 200 mls @ 200 mls/hr IV Q12H [facility] Last Admin: 07/28/17 06:06 Dose: 200 mls/hr Metronidazole (Flagyl) 500 mg in 100 mls @ 100 mls/hr IV Q8H [facility] Last Admin: 07/28/17 09:32 Dose: 100 mls/hr Pantoprazole Sodium 80 mg/ (Sodium Chloride) 100 mls @ 10 mls/hr CONT INF Q10H [facility] Insulin Aspart (Novolog Flexpen (Bkc)) 0 units SC Q6 [facility] PRN Reason: Protocol Last Admin: 07/28/17 06:19 Dose: Not Given Levothyroxine Sodium (Synthroid) 75 mcg PO DAILY@0600 [facility] Magnesium Oxide (Mag-Ox 400) 400 mg PO BIDCM [facility] Morphine Sulfate (Morphine) 2 mg IV Q2H PRN PRN PRN Reason: SEVERE PAIN (6-10/10) Ondansetron HCl (Zofran) 4 mg IV Q6H PRN PRN PRN Reason: NAUSEA Last Admin: 07/28/17 06:07 Dose: 4 mg Sodium Chloride () 5 - 30 ml IV UD PRN PRN Reason: SALINE FLUSH Last Admin: 07/28/17 08:14 Dose: 10 ml Tacrolimus (Prograf) 2 mg PO BID [facility] Last Admin: 07/28/17 08:03 Dose: 2 mg Thi[facility] ([facility]amin B[facility]) [facility] Stop: 07/30/17 17:01 Last Admin: 07/28/17 08:04 Dose: 100 mg Trimethoprim/Sulfamethoxazole (Bactrim Ds) 1 tablet PO MoWeFr@0800 [facility] Last Admin: 07/27/17 23:06 Dose: 1 tablet Assessment/Plan Active and Suspected Problems Abdominal pain (Acute) Nausea & vomiting (Acute) 81-year-old male with past medical history of chronic liver disease status post transplant in 2006, hypothyroidism, hypertension admitted on 07/27/17 with abdominal pain, nausea, vomiting, diarrhea. Patient does have history of chronic alcohol use disorder and last drank alcohol about a week ago. 1. Acute abdominal pain secondary to acute gastritis, multiple duodenal ulcers , history of alcohol use disorder, history of continued NSAID use, s/p EGD with biopsy, on IV PPI drip, IV morphine as needed for pain, kept n.p.o. , general surgery on consult 2. Hyperkalemia, no EKG changes, likely related to type 4RTA, will have to recheck BMP again 3. Leucocytosis, likely reactive, fever, started on IV Cipro and Flagyl, will continue antibiotics in light of contained perforation seen on EGD, CBCD in the morning 4. Acute kidney injury in a patient with normal baseline creatinine, admitted with creatinine of 1.99, secondary to dehydration from #1, will continue on IV fluids, recheck labs in a.m. 5. Chronic alcohol abuse s/p liver transplant, continue on tacrolimus and Bactrim 6. Hypertension, continue on amlodipine with holding parameters 7. Hypothyroidism, on levothyroxine 8. DVT prophylaxis with Lovenox subcu Code Visit Inpatient E&M: 06644 Subs Hosp L2
[2017-07-28 14:36] LABS: Anion Gap 9 (5-15); BUN 30 mg/dL (7-18); BUN/Creat Ratio 17.5 RATIO (10-20); Calcium,Total 8.9 mg/dL (8.5-10.1); Chloride 105 mmol/L (98-107); Creatinine, Serum 1.71 mg/dL (0.70-1.30); EST Glomerular Filtration Rate 42 mL/min (>60); Est Glom Filt Rate - Afr Amer 51 mL/min (>60); Estimated Creatinine Clearance 35.76 ml/min; Glucose 170 mg/dL (74-106); Potassium 5.3 mmol/L (3.5-5.1); Sodium Level 136 mmol/L (136-145)
[2017-07-28 14:57] LABS: Absolute Lymphocyte Count 0.62 X10^3/ul (0.83-4.51); Absolute Neutrophil Count 14.5 X10^3/uL (2.0-7.7); Basophil# 0.03 X10^3/uL; Basophil% 0.2 % (0-1); Eosinophil# 0.37 X10^3/uL; Eosinophils% 2.2 % (0-5); Hematocrit 47.2 % (40-54); Hemoglobin 15.7 g/dl (13.0-16.5); Lymphocyte # 0.62 X10^3/ul (4.0); Lymphocyte % 3.6 % (19-41); Mean Corp Hgb Conc 33.3 g/gl (32-36); Mean Corpuscular Hgb 34.1 pg (27.0-32.0); Mean Corpuscular Volume 102.6 fL (80-94); Mean Platelet Vol. 11.3 fl (6.2-12.0); Monocyte# 1.55 X10^3/uL; Neutrophil # 14.52 X10^3/uL (2.7-7.7); Neutrophil % 84.7 % (47-70); Platelet Count 337 K/mm3 (150-450); RBC Distribution Width CV 13.1 % (11.6-14.6); RBC Distribution Width SD 48.8 fl (35.1-43.9); White Blood Count 17.1 K/mm3 (4.4-11.0)
[2017-07-28 14:58] LABS: Differential Indicated SCAN CRITERIA MET; POSITIVE COUNT NO; POSITIVE DIFFERENTIAL YES; POSITIVE MORPHOLOGY NO
[2017-07-28] MEDS: Ipratropium/Albuterol Sulfate 3 ML AMPUL.NEB INHALATION ×2 (15:21→20:30)
[2017-07-28] MEDS: Magnesium Oxide 400 MG Tablet PO (16:31)
[2017-07-28] MEDS: amLODIPine 5 MG Tablet PO (16:31)
[2017-07-28] MEDS: Levothyroxine 75 MCG Tablet PO (16:31)
[2017-07-28 16:37] LABS: Bedside Glucose 176 mg/dL (70-110)
[2017-07-28] MEDS: 0.9% Normal Saline 1,000 ML 150 ML IV (20:05)
[2017-07-29] VITALS (13 sets, daily range): BP systolic 111–127; BP diastolic 70–76; PULSE 91–113; RESP 18–20; TEMP 36.4–37.1; O2SAT 93–97
[2017-07-29 00:26] LABS: Bedside Glucose 176 mg/dL (70-110)
[2017-07-29] MEDS: 0.9% Normal Saline 1,000 ML 150 ML IV (06:19)
[2017-07-29] MEDS: Ciprofloxacin 400 MG/200 ML BAG 200 MG IV ×2 (06:19→18:39)
[2017-07-29] MEDS: Levothyroxine 75 MCG Tablet PO (06:19)
[2017-07-29 06:38] LABS: Absolute Lymphocyte Count 1.29 X10^3/ul (0.83-4.51); Absolute Neutrophil Count 9.7 X10^3/uL (2.0-7.7); Basophil# 0.04 X10^3/uL; Basophil% 0.3 % (0-1); Eosinophil# 0.29 X10^3/uL; Eosinophils% 2.3 % (0-5); Hematocrit 45.9 % (40-54); Lymphocyte # 1.29 X10^3/ul (4.0); Lymphocyte % 10.3 % (19-41); Mean Corp Hgb Conc 32.7 g/gl (32-36); Mean Corpuscular Hgb 34.2 pg (27.0-32.0); Mean Corpuscular Volume 104.8 fL (80-94); Mean Platelet Vol. 11.2 fl (6.2-12.0); Monocyte# 1.12 X10^3/uL; Neutrophil # 9.72 X10^3/uL (2.7-7.7); Neutrophil % 77.9 % (47-70); Platelet Count 294 K/mm3 (150-450); RBC Distribution Width CV 12.9 % (11.6-14.6); RBC Distribution Width SD 49.2 fl (35.1-43.9); Red Blood Count 4.38 M/mm3 (4.6-6.2); White Blood Count 12.5 K/mm3 (4.4-11.0)
[2017-07-29 06:42] LABS: Bedside Glucose 114 mg/dL (70-110)
[2017-07-29 06:44] LABS: POSITIVE COUNT NO; POSITIVE DIFFERENTIAL NO; POSITIVE MORPHOLOGY NO
[2017-07-29] MEDS: Ipratropium/Albuterol Sulfate 3 ML AMPUL.NEB INHALATION ×4 (07:18→19:02)
[2017-07-29] MEDS: amLODIPine 5 MG Tablet PO (08:07)
[2017-07-29] MEDS: Smz/Tmp Ds Tablet 1 TABLET PO (08:07)
[2017-07-29] MEDS: Folic Acid 1 MG Tablet PO (08:07)
[2017-07-29] MEDS: Magnesium Oxide 400 MG Tablet PO ×2 (08:07→17:29)
[2017-07-29] MEDS: Tacrolimus Anhydrous 1 MG Capsule 2 MG PO ×2 (08:07→23:11)
[2017-07-29] MEDS: Thiamine Hydrochloride 100 MG Tablet PO ×2 (08:07→17:29)
[2017-07-29 08:13] LABS: Anion Gap 11 (5-15); BUN 26 mg/dL (7-18); BUN/Creat Ratio 17.7 RATIO (10-20); Calcium,Total 8.1 mg/dL (8.5-10.1); Chloride 109 mmol/L (98-107); Creatinine, Serum 1.47 mg/dL (0.70-1.30); EST Glomerular Filtration Rate 50 mL/min (>60); Est Glom Filt Rate - Afr Amer 61 mL/min (>60); Estimated Creatinine Clearance 43.09 ml/min; Glucose 142 mg/dL (74-106); Potassium 5.6 mmol/L (3.5-5.1); Sodium Level 138 mmol/L (136-145)
[2017-07-29] MEDS: Sodium Polystyrene Sulfonate 15 GM/60 ML UDC 30 GM PO (11:52)
[2017-07-29 12:04] LABS: Pathologist Review Reviewed
[2017-07-29 12:21] LABS: Bedside Glucose 152 mg/dL (70-110)
--- NOTE | 2017-07-29 14:48 | CASEMGMT ---
EAGLE NEGRETE reviewed chart and noted patient has a history of alcohol use disorder. Referral made to high school social science teacher, Nona Albarran for follow-up. Per Dr. Urban, patient not likely to be discharged before 07/31/17, due to varices, ulcers, and gastritis noted found during EGD. EAGLE NEGRETE also notes patient's follows at [facility] for PCP, pt lives alone and is from spouse who still assists patient when needed. EAGLE NEGRETE will need to collaborate with social work regarding transition planning and care coordination.
--- NOTE | 2017-07-29 15:37 | CASEMGMT ---
Attempted to meet with patient [id number] to discuss transition planning and care coordination needs. Patient not available due to bedside nursing care at this time.
--- NOTE | 2017-07-29 15:46 | PCM.PN.HOSP ---
Patient Problems: Active and Suspected Problems Abdominal pain (Acute) Nausea & vomiting (Acute) Subjective: Patient seen and examined. He feels much better. Abdominal distension has gone down. He is constipated, yet to move his bowels. Denies fever or chills. Objective: Physical exam: General: Alert, Oriented x3, Cooperative, not pale, not jaundiced- - in mild distress.. HEENT: Atraumatic, PERRLA, EOMI, Normocephalic Oral: Moist Mucosa Neck: Supple, No JVD Lungs: Clear to auscultation, Normal air movement Cardiovascular: Regular rate, Regular Rhythm, Normal S1, Normal S2, No murmurs Abdomen: Bowel Sounds Present, Soft, Non Tender, Hypoactive Bowel Sounds, Distended, Tender - over epigastric region Extremities: Edema - Trace bilateral edema Skin: No rashes, No breakdown Musculoskeletal: No Tenderness to Palpation of Joints or Extremities Lymphatic: No Cervical, Supraclavicular, or Inguinal Adenopathy Neurological: Cranial nerves II-XII grossly intact, Neuro grossly intact Psych/Mental Status: Normal Affect, Appropriate Vitals/I&O's: Vital Signs Temp Pulse Resp BP Pulse Ox 98.7 F 104 H 20 H 116/74 97 07/29/17 14:31 07/29/17 14:31 07/29/17 14:31 07/29/17 14:31 07/29/17 14:31 Oxygen Flow Rate 1 Oxygen Delivery Method Nasal Cannula Weight: 99.9 kg Body Mass Index (BMI) 34.5 Intake and Output for Last 24 Hours 07/27/17 07/28/17 07/29/17 23:59 23:59 23:59 Intake Total 4425 / 4425 1935.1 / 1935.1 Output Total 1225 / 1225 900 / 900 Balance 3200 / 3200 1035.1 / 1035.1 Laboratory Results 07/28/17 14:15: Diff Path Review Reviewed 07/28/17 16:28: POC Glucose 176 H 07/29/17 00:12: POC Glucose 176 H 07/29/17 06:16: POC Glucose 114 H 07/29/17 06:20: WBC 12.5 H, RBC 4.38 L, Hgb 15.0, Hct 45.9, MCV 104.8 H, MCH 34.2 H, MCHC 32.7, RDW 12.9, RDW Differential 49.2 H, Plt Count 294, MPV 11.2, Immature Gran % (Auto) 0.200, Neut % (Auto) 77.9 H, Lymph % (Auto) 10.3 L, [place] % (Auto) 9.0, Eos % (Auto) 2.3, Baso % (Auto) 0.3, Absolute Neuts (auto) 9.7 H, Absolute Lymphs (auto) 1.29, Total Counted Not Reportable 07/29/17 06:20: Sodium Cancelled, Potassium Cancelled, Chloride Cancelled, Carbon Dioxide Cancelled, Anion Gap Cancelled, BUN Cancelled, Creatinine Cancelled, Estim Creat Clear Calc Cancelled, Est GFR (MDRD) Af Amer Cancelled, Est GFR (MDRD) Non-Af Cancelled, BUN/Creatinine Ratio Cancelled, Glucose Cancelled, Calcium Cancelled 07/29/17 07:40: Sodium 138, Potassium 5.6 H, Chloride 109 H, Carbon Dioxide 18.0 L, Anion Gap 11, BUN 26 H, Creatinine 1.47 H, Estim Creat Clear Calc 43.09, Est GFR (MDRD) Af Amer 61, Est GFR (MDRD) Non-Af 50 L, BUN/Creatinine Ratio 17.7, Glucose 142 H, Calcium 8.1 L 07/29/17 11:56: POC Glucose 152 H Current Medications Albuterol/Ipratropium (Duoneb) 3 ml INHALATION Q4HWA.RT [facility] Last Admin: 07/29/17 15:33 Dose: 3 ml Amlodipine Besylate (Norvasc) 5 mg PO DAILY [facility] Last Admin: 07/29/17 08:07 Dose: 5 mg Dextrose (D50w Syringe) 0 gm IV X1 PRN; Protocol PRN Reason: Hypoglycemia Folic Acid (Folic Acid) 1 mg PO DAILY@0800 [facility] Last Admin: 07/29/17 08:07 Dose: 1 mg Glucagon () 1 mg IM .X1 PRN PRN Reason: Hypoglycemia Ciprofloxacin (Cipro) 400 mg in 200 mls @ 200 mls/hr IV Q12H [facility] Last Admin: 07/29/17 06:19 Dose: 200 mls/hr Metronidazole (Flagyl) 500 mg in 100 mls @ 100 mls/hr IV Q8H [facility] Last Admin: 07/29/17 11:34 Dose: 100 mls/hr Pantoprazole Sodium 80 mg/ (Sodium Chloride) 100 mls @ 10 mls/hr CONT INF Q10H [facility] Last Admin: 07/29/17 12:22 Dose: 10 mls/hr Sodium Chloride () 1,000 mls @ 150 mls/hr IV .Q6H40M [facility] Last Admin: 07/29/17 06:19 Dose: 150 mls/hr Insulin Aspart (Novolog Flexpen (Bkc)) 0 units SC Q6 [facility] PRN Reason: Protocol Last Admin: 07/29/17 12:22 Dose: 1 units Levothyroxine Sodium (Synthroid) 75 mcg PO DAILY@0600 [facility] Last Admin: 07/29/17 06:19 Dose: 75 mcg [facility] ([facility]-Ox 400) [facility] Last Admin: 07/29/17 08:07 Dose: 400 mg Morphine Sulfate (Morphine) 2 mg IV Q2H PRN PRN PRN Reason: SEVERE PAIN (6-10/10) Last Admin: 07/28/17 21:55 Dose: 2 mg Ondansetron HCl (Zofran) 4 mg IV Q6H PRN PRN PRN Reason: NAUSEA Last Admin: 07/28/17 15:21 Dose: 4 mg Sodium Chloride () 5 - 30 ml IV UD PRN PRN Reason: SALINE FLUSH Last Admin: 07/28/17 17:35 Dose: 10 ml Tacrolimus (Prograf) 2 mg PO BID [facility] Last Admin: 07/29/17 08:07 Dose: 2 mg Thiamine HCl (Vitamin B1) [facility] Stop: 07/30/17 17:01 Last Admin: 07/29/17 08:07 Dose: 100 mg Trimethoprim/Sulfamethoxazole (Bactrim Ds) 1 tablet PO MoWeFr@0800 [facility] Last Admin: 07/29/17 08:07 Dose: 1 tablet Assessment/Plan Active and Suspected Problems Abdominal pain (Acute) Nausea & vomiting (Acute) 71-year-old male with past medical history of chronic liver disease status post transplant in 2006, hypothyroidism, hypertension admitted on 07/27/17 with abdominal pain, nausea, vomiting, diarrhea. Patient does have history of chronic alcohol use disorder and last drank alcohol about a week ago. 1. Acute abdominal pain secondary to acute gastritis, multiple duodenal ulcers, history of alcohol use disorder, history of continued NSAID use, s/p EGD with biopsy, on IV PPI drip, IV morphine as needed for pain, kept n.p.o., general surgery on consult, will continue on IV fluids. 2. Hyperkalemia, K 5.6, no EKG changes, will give Kayexalate, repeat BMP at 4pm. 3. Leucocytosis, reactive, no fever, on IV Cipro and Flagyl, WBC improved to 12.5 from 17.1 4. Acute kidney injury in a patient with normal baseline creatinine, admitted with creatinine of 1.99, secondary to dehydration from #1, improved to 1.47 5. Chronic alcohol abuse s/p liver transplant, continue on tacrolimus and Bactrim 6. Hypertension, continue on amlodipine with holding parameters 7. Hypothyroidism, on levothyroxine 8. DVT prophylaxis with Lovenox subcu Code Visit Inpatient E&M: 27887 Subs Hosp L2
--- NOTE | 2017-07-29 16:15 | PN_ITS ---
Patient Problems: Active and Suspected Problems Abdominal pain (Acute) Nausea & vomiting (Acute) Subjective: Patient seen and examined. He feels much better. Abdominal distension has gone down. He is constipated, yet to move his bowels. Denies fever or chills. Objective: Physical exam: General: Alert, Oriented x3, Cooperative, not pale, not jaundiced- - in mild distress.. HEENT: Atraumatic, PERRLA, EOMI, Normocephalic Oral: Moist Mucosa Neck: Supple, No JVD Lungs: Clear to auscultation, Normal air movement Cardiovascular: Regular rate, Regular Rhythm, Normal S1, Normal S2, No murmurs Abdomen: Bowel Sounds Present, Soft, Non Tender, Hypoactive Bowel Sounds, Distended, Tender - over epigastric region Extremities: Edema - Trace bilateral edema Skin: No rashes, No breakdown Musculoskeletal: No Tenderness to Palpation of Joints or Extremities Lymphatic: No Cervical, Supraclavicular, or Inguinal Adenopathy Neurological: Cranial nerves II-XII grossly intact, Neuro grossly intact Psych/Mental Status: Normal Affect, Appropriate Vitals/I&O's: Vital Signs Temp Pulse Resp BP Pulse Ox 98.7 F 104 H 20 H 116/74 97 07/29/17 14:31 07/29/17 14:31 07/29/17 14:31 07/29/17 14:31 07/29/17 14:31 Oxygen Flow Rate 1 Oxygen Delivery Method Nasal Cannula Weight: 99.9 kg Body Mass Index (BMI) 34.5 Intake and Output for Last 24 Hours 07/27/17 07/28/17 07/29/17 23:59 23:59 23:59 Intake Total 4425 / 4425 1935.1 / 1935.1 Output Total 1225 / 1225 900 / 900 Balance 3200 / 3200 1035.1 / 1035.1 Laboratory Results 07/28/17 14:15: Diff Path Review Reviewed 07/28/17 16:28: POC Glucose 176 H 07/29/17 00:12: POC Glucose 176 H 07/29/17 06:16: POC Glucose 114 H 07/29/17 06:20: WBC 12.5 H, RBC 4.38 L, Hgb 15.0, Hct 45.9, MCV 104.8 H, MCH 34.2 H, MCHC 32.7, RDW 12.9, RDW Differential 49.2 H, Plt Count 294, MPV 11.2, Immature Gran % (Auto) 0.200, Neut % (Auto) 77.9 H, Lymph % (Auto) 10.3 L, [place] % (Auto) 9.0, Eos % (Auto) 2.3, Baso % (Auto) 0.3, Absolute Neuts (auto) 9.7 H, Absolute Lymphs (auto) 1.29, Total Counted Not Reportable 07/29/17 06:20: Sodium Cancelled, Potassium Cancelled, Chloride Cancelled, Carbon Dioxide Cancelled, Anion Gap Cancelled, BUN Cancelled, Creatinine Cancelled, Estim Creat Clear Calc Cancelled, Est GFR (MDRD) Af Amer Cancelled, Est GFR (MDRD) Non-Af Cancelled, BUN/Creatinine Ratio Cancelled, Glucose Cancelled, Calcium Cancelled 07/29/17 07:40: Sodium 138, Potassium 5.6 H, Chloride 109 H, Carbon Dioxide 18.0 L, Anion Gap 11, BUN 26 H, Creatinine 1.47 H, Estim Creat Clear Calc 43.09 , Est GFR (MDRD) Af Amer 61, Est GFR (MDRD) Non-Af 50 L, BUN/Creatinine Ratio 17.7, Glucose 142 H, Calcium 8.1 L 07/29/17 11:56: POC Glucose 152 H Current Medications Albuterol/Ipratropium (Duoneb) 3 ml INHALATION Q4HWA.RT [facility] Last Admin: 07/29/17 15:33 Dose: 3 ml Amlodipine Besylate (Norvasc) 5 mg PO DAILY [facility] Last Admin: 07/29/17 08:07 Dose: 5 mg Dextrose (D50w Syringe) 0 gm IV X1 PRN; Protocol PRN Reason: Hypoglycemia Folic Acid (Folic Acid) 1 mg PO DAILY@0800 [facility] Last Admin: 07/29/17 08:07 Dose: 1 mg Glucagon () 1 mg IM .X1 PRN PRN Reason: Hypoglycemia Ciprofloxacin (Cipro) 400 mg in 200 mls @ 200 mls/hr IV Q12H [facility] Last Admin: 07/29/17 06:19 Dose: 200 mls/hr Metronidazole (Flagyl) 500 mg in 100 mls @ 100 mls/hr IV Q8H [facility] Last Admin: 07/29/17 11:34 Dose: 100 mls/hr Pantoprazole Sodium 80 mg/ (Sodium Chloride) 100 mls @ 10 mls/hr CONT INF Q10H [facility] Last Admin: 07/29/17 12:22 Dose: 10 mls/hr Sodium Chloride () 1,000 mls @ 150 mls/hr IV .Q6H40M [facility] Last Admin: 07/29/17 06:19 Dose: 150 mls/hr Insulin Aspart (Novolog Flexpen (Bkc)) 0 units SC Q6 [facility] PRN Reason: Protocol Last Admin: 07/29/17 12:22 Dose: 1 units Levothyroxine Sodium (Synthroid) 75 mcg PO DAILY@0600 [facility] Last Admin: 07/29/17 06:19 Dose: 75 mcg Magnesium Oxide (Mag-Ox 400) [facility] Last Admin: 07/29/17 08:07 Dose: 400 mg Morphine Sulfate (Morphine) 2 mg IV Q2H PRN PRN PRN Reason: SEVERE PAIN (6-10/10) Last Admin: 07/28/17 21:55 Dose: 2 mg Ondansetron HCl (Zofran) 4 mg IV Q6H PRN PRN PRN Reason: NAUSEA Last Admin: 07/28/17 15:21 Dose: 4 mg Sodium Chloride () 5 - 30 ml IV UD PRN PRN Reason: SALINE FLUSH Last Admin: 07/28/17 17:35 Dose: 10 ml Tacrolimus (Prograf) 2 mg PO BID [facility] Last Admin: 07/29/17 08:07 Dose: 2 mg Thiamine HCl (Vitamin B1) [facility] Stop: 07/30/17 17:01 Last Admin: 07/29/17 08:07 Dose: 100 mg Trimethoprim/Sulfamethoxazole (Bactrim Ds) 1 tablet PO MoWeFr@0800 [facility] Last Admin: 07/29/17 08:07 Dose: 1 tablet Assessment/Plan Active and Suspected Problems Abdominal pain (Acute) Nausea & vomiting (Acute) 71-year-old male with past medical history of chronic liver disease status post transplant in 2006, hypothyroidism, hypertension admitted on 07/27/17 with abdominal pain, nausea, vomiting, diarrhea. Patient does have history of chronic alcohol use disorder and last drank alcohol about a week ago. 1. Acute abdominal pain secondary to acute gastritis, multiple duodenal ulcers , history of alcohol use disorder, history of continued NSAID use, s/p EGD with biopsy, on IV PPI drip, IV morphine as needed for pain, kept n.p.o. , general surgery on consult, will continue on IV fluids. 2. Hyperkalemia, K 5.6, no EKG changes, will give Kayexalate, repeat BMP at 4pm. 3. Leucocytosis, reactive, no fever, on IV Cipro and Flagyl, WBC improved to 12.5 from 17.1 4. Acute kidney injury in a patient with normal baseline creatinine, admitted with creatinine of 1.99, secondary to dehydration from #1, improved to 1.47 5. Chronic alcohol abuse s/p liver transplant, continue on tacrolimus and Bactrim 6. Hypertension, continue on amlodipine with holding parameters 7. Hypothyroidism, on levothyroxine 8. DVT prophylaxis with Lovenox subcu Code Visit Inpatient E&M: 89999 Subs Hosp L2
[2017-07-29 16:42] LABS: Anion Gap 10 (5-15); BUN 25 mg/dL (7-18); BUN/Creat Ratio 16.2 RATIO (10-20); Calcium,Total 8.3 mg/dL (8.5-10.1); Chloride 110 mmol/L (98-107); Creatinine, Serum 1.54 mg/dL (0.70-1.30); EST Glomerular Filtration Rate 48 mL/min (>60); Est Glom Filt Rate - Afr Amer 57 mL/min (>60); Estimated Creatinine Clearance 41.13 ml/min; Glucose 168 mg/dL (74-106); Potassium 5.1 mmol/L (3.5-5.1); Sodium Level 139 mmol/L (136-145)
--- NOTE | 2017-07-29 16:50 | PCM.PN.SRG ---
Patient Problems: Active and Suspected Problems Abdominal pain (Acute) Nausea & vomiting (Acute) Subjective: feeling less distended than yesterday after his procedure - Physical Exam General: Alert, Oriented x3 Lungs: Clear to auscultation Cardiovascular: Regular rate, Regular Rhythm Abdomen: Bowel Sounds Present, Soft, Distended, Obese Vital Signs Temp Pulse Resp BP Pulse Ox 98.7 F 102 H 18 116/74 93 07/29/17 14:31 07/29/17 15:34 07/29/17 15:34 07/29/17 14:31 07/29/17 15:34 Oxygen Flow Rate 2 Oxygen Delivery Method Nasal Cannula Weight: 99.9 kg Body Mass Index (BMI) 34.5 Intake and Output for Last 24 Hours 07/27/17 07/28/17 07/29/17 23:59 23:59 23:59 Intake Total 4425 / 4425 1935.1 / 1935.1 Output Total 1225 / 1225 900 / 900 Balance 3200 / 3200 1035.1 / 1035.1 Laboratory Tests Past 24 Hrs 07/28/17 07/29/17 07/29/17 14:15 06:20 06:20 WBC 12.5 H RBC 4.38 L Hgb 15.0 Hct 45.9 MCV 104.8 H MCH 34.2 H MCHC 32.7 RDW 12.9 RDW Differential 49.2 H Plt Count 294 MPV 11.2 Immature Gran % (Auto) 0.200 Neut % (Auto) 77.9 H Lymph % (Auto) 10.3 L [place] % (Auto) 9.0 Eos % (Auto) 2.3 Baso % (Auto) 0.3 Absolute Neuts (auto) 9.7 H Absolute Lymphs (auto) 1.29 Total Counted Not Reportable Diff Path Review Reviewed Sodium Cancelled Potassium Cancelled Chloride Cancelled Carbon Dioxide Cancelled Anion Gap Cancelled BUN Cancelled Creatinine Cancelled Estim Creat Clear Calc Cancelled Est GFR (MDRD) Af Amer Cancelled Est GFR (MDRD) Non-Af Cancelled BUN/Creatinine Ratio Cancelled Glucose Cancelled Calcium Cancelled 07/29/17 07/29/17 07:40 16:04 WBC RBC Hgb Hct MCV MCH MCHC RDW RDW Differential Plt Count MPV Immature Gran % (Auto) Neut % (Auto) Lymph % (Auto) [place] % (Auto) Eos % (Auto) Baso % (Auto) Absolute Neuts (auto) Absolute Lymphs (auto) Total Counted Diff Path Review Sodium 138 139 Potassium 5.6 H 5.1 Chloride 109 H 110 H Carbon Dioxide 18.0 L 19.0 L Anion Gap 11 10 BUN 26 H 25 H Creatinine 1.47 H 1.54 H Estim Creat Clear Calc 43.09 41.13 Est GFR (MDRD) Af Amer 61 57 L Est GFR (MDRD) Non-Af 50 L 48 L BUN/Creatinine Ratio 17.7 16.2 Glucose 142 H 168 H Calcium 8.1 L 8.3 L POC Glucose 07/29/17 07/29/17 07/29/17 11:56 06:16 00:12 POC Glucose 152 H 114 H 176 H Assessment/Plan Active and Suspected Problems Abdominal pain (Acute) Nausea & vomiting (Acute) CT scan suspicious for distal esophagus and duodenal processes-status post liver transplant, alcoholism, tobacco abuse, history of esophageal varices Upper endoscopy - demonstrated severe erosive duodenitis with many duodenal ulcers including ulcerations beyond the second portion of duodenum superficial ulcers that were oozing, though no significant active bleeding was noted and very deep ulcers, suspicious for full-thickness perforation. the patient otherwise had moderate gastritis. He had portal hypertensive gastropathy, distal esophagitis without signs of esophageal cancer and irregularities in the distal esophagus concerning for esophageal varices Comparing the CT scan in the second, third portion of duodenum. With these findings make me believe that areas that I see of air outside the lumen are likely contained perforations. Between alcoholism, liver transplant and immunosuppressive medications, the patient's at significant risk for peptic ulcer disease. After finding the ulcers at endoscopy.-The patient notes he takes significant quantities of nonsteroidal medications. I would be judicious with anticoagulation given the patient's above findings. Patient denies recent episodes of alcohol withdrawal, but given his past history is at risk for withdrawal type symptoms.
[2017-07-29] MEDS: 0.9% Normal Saline 1,000 ML 75 ML IV (17:29)
[2017-07-29 17:31] LABS: Bedside Glucose 187 mg/dL (70-110)
--- NOTE | 2017-07-29 18:51 | NURSING ---
Pt appears anxious at this time, raising voice when talking about how frustrated he is with being in the hospital. Pt states he usually takes Ativan at home at bedtime. Pt states he has not had alcohol in about a week. Tremors to hands continue, and pt states are chronic.
[2017-07-29] MEDS: LORazepam 0.5 MG Tablet PO (20:23)
[2017-07-29 23:21] LABS: Bedside Glucose 128 mg/dL (70-110)
[2017-07-30] VITALS (13 sets, daily range): BP systolic 108–131; BP diastolic 67–69; PULSE 64–113; RESP 14–18; TEMP 36.9–37.4; O2SAT 91–97
[2017-07-30 05:50] LABS: Anion Gap 9 (5-15); BUN 21 mg/dL (7-18); BUN/Creat Ratio 15.6 RATIO (10-20); Calcium,Total 8.3 mg/dL (8.5-10.1); Chloride 109 mmol/L (98-107); Creatinine, Serum 1.35 mg/dL (0.70-1.30); EST Glomerular Filtration Rate 55 mL/min (>60); Est Glom Filt Rate - Afr Amer 67 mL/min (>60); Estimated Creatinine Clearance 46.92 ml/min; Glucose 133 mg/dL (74-106); Potassium 4.9 mmol/L (3.5-5.1); Sodium Level 139 mmol/L (136-145)
[2017-07-30] MEDS: Levothyroxine 75 MCG Tablet PO (06:30)
[2017-07-30] MEDS: Ipratropium/Albuterol Sulfate 3 ML AMPUL.NEB INHALATION ×5 (06:53→23:20)
[2017-07-30 06:56] LABS: Bedside Glucose 128 mg/dL (70-110)
[2017-07-30] MEDS: 0.9% NaCl Peripheral Flush Adult/Peds IV (08:27)
[2017-07-30] MEDS: Ciprofloxacin 400 MG/200 ML BAG 200 MG IV ×2 (08:27→19:33)
[2017-07-30] MEDS: Tacrolimus Anhydrous 1 MG Capsule 2 MG PO ×2 (08:28→22:30)
[2017-07-30] MEDS: Magnesium Oxide 400 MG Tablet PO ×2 (08:28→17:15)
[2017-07-30] MEDS: Folic Acid 1 MG Tablet PO (08:28)
[2017-07-30] MEDS: amLODIPine 5 MG Tablet PO (08:28)
[2017-07-30] MEDS: Thiamine Hydrochloride 100 MG Tablet PO ×2 (08:28→17:15)
--- NOTE | 2017-07-30 10:45 | CASEMGMT ---
SW received referral for pt from CM regarding pt's alcohol use. SW met w/pt in room, pt initially informed SW he cannot go home, needs to go somewhere for rehab. SW explained reviewed his PT notes, pt walked 200 feet. Pt states he is using a walker however and normally does not need this. Pt states he feels much weaker than his usual self, would have difficulty getting from the parking lot to his apartment. SW and pt discussed options, pt is agreeable to a referral to [facility]. SW reviewed the Medicare benefit for [facility]dc w/pt. SW then spoke w/pt about pt's alcohol use. Pt states he is drinking a lot less than he was, states he used to drink 2 1/5's per day. Pt states now he drinks alcohol, but dilutes it now. Pt states he does understand that even that is affecting his health. Pt states is thinking about going back to AA, pt has gone in the past, has a sponsor. Pt states he has taxi vouchers, but cannot always afford to go to AA, he has to combine going with another task, like going to the grocery store. SW gently asked if AA helps, which is costing more, going to a meeting or being ill and in the hospital. Pt then states he does not feel like AA is always helpful. SW spoke w/pt about counseling as well. Pt has tried this as well, states he was not ready and it was not helpful. Pt states he is thinking he will start going to [facility]. Pt states he just sits around his apartment and watches TV, does not have much to do. SW encouraged pt to look into this, he states he has the contact information and plans to call. SW also let him know that [address] where he may be able to go as well. Pt is not interested in any additional referrals at this time. SW asked pt about POA, pt states he and is are but she is still his POA (the papers are on file here). SW explained will make referral to [facility] and let him know. ALE called [facility], faxed referral, they can take pt tomorrow. As per physician, pt should be ready for discharge tomorrow. ALE let pt know that [facility] has accepted him and he will likely be able to go tomorrow as per physician. SW will follow up tomorrow. ALMA Taylor, [employer]
[2017-07-30] MEDS: 0.9% Normal Saline 1,000 ML 75 ML IV (12:05)
[2017-07-30 12:26] LABS: Bedside Glucose 180 mg/dL (70-110)
--- NOTE | 2017-07-30 13:47 | PCM.PN.HOSP ---
Patient Problems: Active and Suspected Problems Abdominal pain (Acute) Nausea & vomiting (Acute) Subjective: Was seen and examined. He is much better today. Had multiple bowel movements more than 5 times since yesterday. Denies any abdominal pain. No worsening of abdominal distention. Feels hungry. Still kept n.p.o., on IV fluids. Objective: Physical exam: General: Alert, Oriented x3, Cooperative, not pale, not jaundiced- - in mild distress.. HEENT: Atraumatic, PERRLA, EOMI, Normocephalic Oral: Moist Mucosa Neck: Supple, No JVD Lungs: Clear to auscultation, Normal air movement Cardiovascular: Regular rate, Regular Rhythm, Normal S1, Normal S2, No murmurs Abdomen: Bowel Sounds Present, Soft, Non Tender, Hypoactive Bowel Sounds, Distended, Tender - over epigastric region Extremities: Edema - Trace bilateral edema Skin: No rashes, No breakdown Musculoskeletal: No Tenderness to Palpation of Joints or Extremities Lymphatic: No Cervical, Supraclavicular, or Inguinal Adenopathy Neurological: Cranial nerves II-XII grossly intact, Neuro grossly intact Psych/Mental Status: Normal Affect, Appropriate Vitals/I&O's: Vital Signs Temp Pulse Resp BP Pulse Ox 98.5 F 112 H 16 124/68 H 93 07/30/17 08:20 07/30/17 11:59 07/30/17 10:55 07/30/17 08:20 07/30/17 08:20 Oxygen Flow Rate 2 Oxygen Delivery Method Room Air Weight: 99.9 kg Body Mass Index (BMI) 34.5 Intake and Output for Last 24 Hours 07/28/17 07/29/17 07/30/17 23:59 23:59 23:59 Intake Total 4425 / 4425 2295.1 / 2295.1 2393 / 2393 Output Total 1225 / 1225 1070 / 1070 1650 / 1650 Balance 3200 / 3200 1225.1 / 1225.1 743 / 743 Laboratory Results 07/29/17 16:04: Sodium 139, Potassium 5.1, Chloride 110 H, Carbon Dioxide 19.0 L, Anion Gap 10, BUN 25 H, Creatinine 1.54 H, Estim Creat Clear Calc 41.13, Est GFR (MDRD) Af Amer 57 L, Est GFR (MDRD) Non-Af 48 L, BUN/Creatinine Ratio 16.2, Glucose 168 H, Calcium 8.3 L 07/29/17 17:24: POC Glucose 187 H 07/29/17 23:10: POC Glucose 128 H 07/30/17 05:06: Sodium 139, Potassium 4.9, Chloride 109 H, Carbon Dioxide 21.0, Anion Gap 9, BUN 21 H, Creatinine 1.35 H, Estim Creat Clear Calc 46.92, Est GFR (MDRD) Af Amer 67, Est GFR (MDRD) Non-Af 55 L, BUN/Creatinine Ratio 15.6, Glucose 133 H, Calcium 8.3 L 07/30/17 06:39: POC Glucose 128 H 07/30/17 11:58: POC Glucose 180 H Current Medications Albuterol/Ipratropium (Duoneb) 3 ml INHALATION Q4HWA.RT [facility] Last Admin: 07/30/17 10:55 Dose: 3 ml Amlodipine Besylate (Norvasc) 5 mg PO DAILY [facility] Last Admin: 07/30/17 08:28 Dose: 5 mg Dextrose (D50w Syringe) 0 gm IV X1 PRN; Protocol PRN Reason: Hypoglycemia Folic Acid (Folic Acid) 1 mg PO DAILY@0800 [facility] Last Admin: 07/30/17 08:28 Dose: 1 mg Glucagon () 1 mg IM .X1 PRN PRN Reason: Hypoglycemia Ciprofloxacin (Cipro) 400 mg in 200 mls @ 200 mls/hr IV Q12H [facility] Last Admin: 07/30/17 08:27 Dose: 200 mls/hr Metronidazole (Flagyl) 500 mg in 100 mls @ 100 mls/hr IV Q8H [facility] Last Admin: 07/30/17 10:53 Dose: 100 mls/hr Pantoprazole Sodium 80 mg/ (Sodium Chloride) 100 mls @ 10 mls/hr CONT INF Q10H [facility] Last Admin: 07/30/17 12:22 Dose: 10 mls/hr Sodium Chloride () 1,000 mls @ 75 mls/hr IV .[id number] [facility] Last Admin: 07/30/17 12:05 Dose: 75 mls/hr Insulin Aspart (Novolog Flexpen (Bkc)) 0 units SC Q6 ARAMIS PRN Reason: Protocol Last Admin: 02/08/18 12:01 Dose: 1 units Lactulose (Chronulac, Cephulac) 20 gm PO BID [facility] Last Admin: 07/30/17 08:29 Dose: Not Given Levothyroxine Sodium (Synthroid) 75 mcg PO DAILY@0600 [facility] Last Admin: 07/30/17 06:30 Dose: 75 mcg Lorazepam (Ativan) 0.5 mg PO QHS PRN PRN PRN Reason: SLEEP Last Admin: 07/29/17 20:23 Dose: 0.5 mg Magnesium Oxide (Mag-Ox 400) [facility] Last Admin: 07/30/17 08:28 Dose: 400 mg Morphine Sulfate (Morphine) 2 mg IV Q2H PRN PRN PRN Reason: SEVERE PAIN (6-10/10) Last Admin: 07/28/17 21:55 Dose: 2 mg Ondansetron HCl (Zofran) 4 mg IV Q6H PRN PRN PRN Reason: NAUSEA Last Admin: 07/28/17 15:21 Dose: 4 mg Sodium Chloride () 5 - 30 ml IV UD PRN PRN Reason: SALINE FLUSH Last Admin: 07/30/17 08:27 Dose: 30 ml Tacrolimus (Prograf) 2 mg PO BID [facility] Last Admin: 07/30/17 08:28 Dose: 2 mg Thiamine HCl (Vitamin B1) [facility] Stop: 07/30/17 17:01 Last Admin: 07/30/17 08:28 Dose: 100 mg Trimethoprim/Sulfamethoxazole (Bactrim Ds) 1 tablet PO MoWeFr@0800 [facility] Last Admin: 07/29/17 08:07 Dose: 1 tablet Assessment/Plan Active and Suspected Problems Abdominal pain (Acute) Nausea & vomiting (Acute) 71-year-old male with past medical history of chronic liver disease status post transplant in 2006, hypothyroidism, hypertension admitted on 07/27/17 with abdominal pain, nausea, vomiting, diarrhea. Patient does have history of chronic alcohol use disorder and last drank alcohol about a week ago. 1. Acute abdominal pain secondary to acute gastritis, multiple duodenal ulcers, history of alcohol use disorder, history of continued NSAID use, s/p EGD with biopsy, on IV PPI drip, IV morphine as needed for pain, diet to be advanced by general surgery. 2. Hyperkalemia, resolved, K 4.9. Off ACEI, not on potassium. 3. Leucocytosis, reactive, in view of contained perforation, will continue on antibiotics for a total of 7 days, currently on IV Cipro and Flagyl. 4. Acute kidney injury in a patient with normal baseline creatinine, secondary to dehydration from #1, improving, currently Cr 1.35, BMP in am 5. Chronic alcohol abuse s/p liver transplant, continue on tacrolimus and Bactrim 6. Hypertension, continue on amlodipine with holding parameters 7. Hypothyroidism, on levothyroxine 8. DVT prophylaxis with Lovenox subcu Code Visit Inpatient E&M: 36137 Subs Hosp L2
--- NOTE | 2017-07-30 13:55 | PN_ITS ---
Patient Problems: Active and Suspected Problems Abdominal pain (Acute) Nausea & vomiting (Acute) Subjective: Was seen and examined. He is much better today. Had multiple bowel movements more than 5 times since yesterday. Denies any abdominal pain. No worsening of abdominal distention. Feels hungry. Still kept n.p.o., on IV fluids. Objective: Physical exam: General: Alert, Oriented x3, Cooperative, not pale, not jaundiced- - in mild distress.. HEENT: Atraumatic, PERRLA, EOMI, Normocephalic Oral: Moist Mucosa Neck: Supple, No JVD Lungs: Clear to auscultation, Normal air movement Cardiovascular: Regular rate, Regular Rhythm, Normal S1, Normal S2, No murmurs Abdomen: Bowel Sounds Present, Soft, Non Tender, Hypoactive Bowel Sounds, Distended, Tender - over epigastric region Extremities: Edema - Trace bilateral edema Skin: No rashes, No breakdown Musculoskeletal: No Tenderness to Palpation of Joints or Extremities Lymphatic: No Cervical, Supraclavicular, or Inguinal Adenopathy Neurological: Cranial nerves II-XII grossly intact, Neuro grossly intact Psych/Mental Status: Normal Affect, Appropriate Vitals/I&O's: Vital Signs Temp Pulse Resp BP Pulse Ox 98.5 F 112 H 16 124/68 H 93 07/30/17 08:20 07/30/17 11:59 07/30/17 10:55 07/30/17 08:20 07/30/17 08:20 Oxygen Flow Rate 2 Oxygen Delivery Method Room Air Weight: 99.9 kg Body Mass Index (BMI) 34.5 Intake and Output for Last 24 Hours 07/28/17 07/29/17 07/30/17 23:59 23:59 23:59 Intake Total 4425 / 4425 2295.1 / 2295.1 2393 / 2393 Output Total 1225 / 1225 1070 / 1070 1650 / 1650 Balance 3200 / 3200 1225.1 / 1225.1 743 / 743 Laboratory Results 07/29/17 16:04: Sodium 139, Potassium 5.1, Chloride 110 H, Carbon Dioxide 19.0 L , Anion Gap 10, BUN 25 H, Creatinine 1.54 H, Estim Creat Clear Calc 41.13, Est GFR (MDRD) Af Amer 57 L, Est GFR (MDRD) Non-Af 48 L, BUN/Creatinine Ratio 16.2, Glucose 168 H, Calcium 8.3 L 07/29/17 17:24: POC Glucose 187 H 07/29/17 23:10: POC Glucose 128 H 07/30/17 05:06: Sodium 139, Potassium 4.9, Chloride 109 H, Carbon Dioxide 21.0, Anion Gap 9, BUN 21 H, Creatinine 1.35 H, Estim Creat Clear Calc 46.92, Est GFR (MDRD) Af Amer 67, Est GFR (MDRD) Non-Af 55 L, BUN/Creatinine Ratio 15.6, Glucose 133 H, Calcium 8.3 L 07/30/17 06:39: POC Glucose 128 H 07/30/17 11:58: POC Glucose 180 H Current Medications Albuterol/Ipratropium (Duoneb) 3 ml INHALATION Q4HWA.RT [facility] Last Admin: 07/30/17 10:55 Dose: 3 ml Amlodipine Besylate (Norvasc) 5 mg PO DAILY [facility] Last Admin: 07/30/17 08:28 Dose: 5 mg Dextrose (D50w Syringe) 0 gm IV X1 PRN; Protocol PRN Reason: Hypoglycemia Folic Acid (Folic Acid) 1 mg PO DAILY@0800 [facility] Last Admin: 07/30/17 08:28 Dose: 1 mg Glucagon () 1 mg IM .X1 PRN PRN Reason: Hypoglycemia Ciprofloxacin (Cipro) 400 mg in 200 mls @ 200 mls/hr IV Q12H [facility] Last Admin: 07/30/17 08:27 Dose: 200 mls/hr Metronidazole (Flagyl) 500 mg in 100 mls @ 100 mls/hr IV Q8H [facility] Last Admin: 07/30/17 10:53 Dose: 100 mls/hr Pantoprazole Sodium 80 mg/ (Sodium Chloride) 100 mls @ 10 mls/hr CONT INF Q10H [facility] Last Admin: 07/30/17 12:22 Dose: 10 mls/hr Sodium Chloride () 1,000 mls @ 75 mls/hr IV .[id number] [facility] Last Admin: 07/30/17 12:05 Dose: 75 mls/hr Insulin Aspart (Novolog Flexpen (Bkc)) 0 units SC Q6 [place] PRN Reason: Protocol Last Admin: 02/08/18 12:01 Dose: 1 units Lactulose (Chronulac, Cephulac) 20 gm PO BID [facility] Last Admin: 07/30/17 08:29 Dose: Not Given Levothyroxine Sodium (Synthroid) 75 mcg PO DAILY@0600 [facility] Last Admin: 07/30/17 06:30 Dose: 75 mcg Lorazepam (Ativan) 0.5 mg PO QHS PRN PRN PRN Reason: SLEEP Last Admin: 07/29/17 20:23 Dose: 0.5 mg Magnesium Oxide (Mag-Ox 400) [facility] Last Admin: 07/30/17 08:28 Dose: 400 mg Morphine Sulfate (Morphine) 2 mg IV Q2H PRN PRN PRN Reason: SEVERE PAIN (6-10/10) Last Admin: 07/28/17 21:55 Dose: 2 mg Ondansetron HCl (Zofran) 4 mg IV Q6H PRN PRN PRN Reason: NAUSEA Last Admin: 07/28/17 15:21 Dose: 4 mg Sodium Chloride () 5 - 30 ml IV UD PRN PRN Reason: SALINE FLUSH Last Admin: 07/30/17 08:27 Dose: 30 ml Tacrolimus (Prograf) 2 mg PO BID [facility] Last Admin: 07/30/17 08:28 Dose: 2 mg Thiamine HCl (Vitamin B1) [facility] Stop: 07/30/17 17:01 Last Admin: 07/30/17 08:28 Dose: 100 mg Trimethoprim/Sulfamethoxazole (Bactrim Ds) 1 tablet PO MoWeFr@0800 [facility] Last Admin: 07/29/17 08:07 Dose: 1 tablet Assessment/Plan Active and Suspected Problems Abdominal pain (Acute) Nausea & vomiting (Acute) 71-year-old male with past medical history of chronic liver disease status post transplant in 2006, hypothyroidism, hypertension admitted on 07/27/17 with abdominal pain, nausea, vomiting, diarrhea. Patient does have history of chronic alcohol use disorder and last drank alcohol about a week ago. 1. Acute abdominal pain secondary to acute gastritis, multiple duodenal ulcers, history of alcohol use disorder, history of continued NSAID use, s/p EGD with biopsy, on IV PPI drip, IV morphine as needed for pain, diet to be advanced by general surgery. 2. Hyperkalemia, resolved, K 4.9. Off ACEI, not on potassium. 3. Leucocytosis, reactive, in view of contained perforation, will continue on antibiotics for a total of 7 days, currently on IV Cipro and Flagyl. 4. Acute kidney injury in a patient with normal baseline creatinine, secondary to dehydration from #1, improving, currently Cr 1.35, BMP in am 5. Chronic alcohol abuse s/p liver transplant, continue on tacrolimus and Bactrim 6. Hypertension, continue on amlodipine with holding parameters 7. Hypothyroidism, on levothyroxine 8. DVT prophylaxis with Lovenox subcu Code Visit Inpatient E&M: 03888 Subs Hosp L2
[2017-07-30 18:25] LABS: Bedside Glucose 144 mg/dL (70-110)
[2017-07-30 22:30] LABS: Bedside Glucose 226 mg/dL (70-110)
[2017-07-30] MEDS: LORazepam 0.5 MG Tablet PO (23:35)
[2017-07-31] VITALS (8 sets, daily range): BP systolic 109–146; BP diastolic 66–92; PULSE 84–110; RESP 18; TEMP 36.6–37.4; O2SAT 93–97
[2017-07-31] MEDS: Sodium Chloride 0.65% 1 SPRAY SPRAY.BTL 2 SPRAY NASAL (03:48)
[2017-07-31 05:50] LABS: Absolute Lymphocyte Count 0.89 X10^3/ul (0.83-4.51); Absolute Neutrophil Count 6.3 X10^3/uL (2.0-7.7); Basophil# 0.03 X10^3/uL; Basophil% 0.3 % (0-1); Eosinophil# 0.51 X10^3/uL; Eosinophils% 5.9 % (0-5); Hematocrit 40.1 % (40-54); Hemoglobin 12.9 g/dl (13.0-16.5); Lymphocyte # 0.89 X10^3/ul (4.0); Lymphocyte % 10.4 % (19-41); Mean Corp Hgb Conc 32.2 g/gl (32-36); Mean Corpuscular Hgb 33.5 pg (27.0-32.0); Mean Corpuscular Volume 104.2 fL (80-94); Monocyte# 0.88 X10^3/uL; Monocyte% 10.3 % (0-10); Neutrophil # 6.25 X10^3/uL (2.7-7.7); Neutrophil % 72.9 % (47-70); Platelet Count 230 K/mm3 (150-450); RBC Distribution Width SD 49.5 fl (35.1-43.9); Red Blood Count 3.85 M/mm3 (4.6-6.2); White Blood Count 8.6 K/mm3 (4.4-11.0)
[2017-07-31 05:52] LABS: POSITIVE COUNT NO; POSITIVE DIFFERENTIAL NO; POSITIVE MORPHOLOGY NO
[2017-07-31] MEDS: Ciprofloxacin 400 MG/200 ML BAG 200 MG IV (06:05)
[2017-07-31] MEDS: Levothyroxine 75 MCG Tablet PO (06:05)
[2017-07-31] MEDS: 0.9% Normal Saline 1,000 ML 75 ML IV (06:05)
[2017-07-31 06:10] LABS: Anion Gap 10 (5-15); BUN 13 mg/dL (7-18); BUN/Creat Ratio 11.3 RATIO (10-20); Calcium,Total 8.1 mg/dL (8.5-10.1); Chloride 107 mmol/L (98-107); Creatinine, Serum 1.15 mg/dL (0.70-1.30); EST Glomerular Filtration Rate 67 mL/min (>60); Est Glom Filt Rate - Afr Amer 81 mL/min (>60); Estimated Creatinine Clearance 55.08 ml/min; Glucose 151 mg/dL (74-106); Potassium 4.5 mmol/L (3.5-5.1); Sodium Level 137 mmol/L (136-145)
[2017-07-31] MEDS: Ipratropium/Albuterol Sulfate 3 ML AMPUL.NEB INHALATION ×2 (07:02→10:58)
[2017-07-31 07:25] LABS: Bedside Glucose 176 mg/dL (70-110)
[2017-07-31] MEDS: Smz/Tmp Ds Tablet 1 TABLET PO (08:23)
[2017-07-31] MEDS: Magnesium Oxide 400 MG Tablet PO (08:24)
[2017-07-31] MEDS: Folic Acid 1 MG Tablet PO (08:24)
[2017-07-31] MEDS: amLODIPine 5 MG Tablet PO (10:38)
[2017-07-31] MEDS: Tacrolimus Anhydrous 1 MG Capsule 2 MG PO (10:39)
--- NOTE | 2017-07-31 11:41 | PCM.TXEXTCAR ---
- Diet 07/31/17 03:38 Diet: Calorie Controlled Is pt able to select menu?: Yes Diet Comments: no red foods please How many daily calories?: 1800 calorie - Routine Orders/Code Status Routine Lab Work: CBC - in 3 days, BMP - in 3 days - Wound(s) abd Wound Type: Abrasion bart legs Wound Type: scratches - Therapies Physical Therapy: Eval and Treat Occupational Therapy: Eval and Treat - Allergies/Procedures Done in Hospital Allergies/Adverse Reactions: Allergies cortisone [Cortisone] Allergy (Verified 07/27/17 15:59) Angioedema Penicillins Allergy (Verified 07/27/17 15:59) Unknown Procedures: EGD - Type of Care/Length of Stay Estimated LOS: Convalescent Care Less Than 30 days Type of Care Needed: Skilled Rehab Potential: Good Prognosis: Good - Additional Orders/Day of Discharge Day of Discharge: 07/31/17 - Dietary and Speech Recommendations Dietitian Recommendations/Changes: Rec 1800 calorie controlled, low sodium diet. Will order ONS medpass for help w/ recovery/healing - Follow Up Care Primary Care Physician: Wilver Garcias MD [Primary Care Provider] - Please follow up with your Primary Care Physician in: within 2 weeks of discharge from SNF Please Follow Up With: Juan Alberto Morales MD When: within 2 weeks
[2017-07-31 12:26] LABS: Bedside Glucose 262 mg/dL (70-110)
--- NOTE | 2017-07-31 12:27 | CASEMGMT ---
Pt is ready for discharge today. ALE faxed all discharge paperwork to [facility], completed hospital exemption and faxed this also to [facility], Schedule II Script to [facility]. ALE set up a 2:30pm ambulette w/Yari Lebec. SW spoke w/pt, explained all discharge paperwork is completed and he can go to [facility] today. Pt states his will take him about 4pm when she returns from [facility](took a friend there for an appt). SW will cancel the transport. ALE did also give pt information on [facility] in [place], as pt is looking for ways to occupy his time. [facility] [employer] has a hangout, and the [facility] may offer some activities for older adults. Pt thanked ALE for the assist. ALE let RN know that pt's will be here about 4pm to take him to [facility], ALE let Dominique at [facility] know as well it is anticipated pt will leave about 4pm. No further needs are anticipated. ALMA Taylor, QUARTZ MINER
--- NOTE | 2017-08-01 14:47 | PCM.DC.SUM ---
Discharge Date and Diagnosis Date of Admission: 07/27/17 Date of Discharge: 07/31/17 - Primary Discharge Diagnosis Acute perforated duodenal ulcer, contained Acute gastritis, duodenitis - Secondary Discharge Diagnosis Chronic Problems Non-healing non-surgical wound (Chronic) Depression (Chronic) HTN (hypertension) (Chronic) Diabetes mellitus (Chronic) Alcohol abuse following liver transplant (Chronic) Alcohol abuse (Chronic) Liver transplanted (Chronic) in 2006 at [facility]; on prograft 2g bid Hospital Course and Treatment Imaging Results: Clinical Impression(s) from Imaging Studies Abdomen/Pelvis CT 07/27/17 16:30 IMPRESSION: Diffuse wall thickening of the distal esophagus with enlarged adjacent lymph nodes, could be reactive, neoplastic process is not excluded, further evaluation recommended. Marked focal wall thickening of the duodenum with severe adjacent fat stranding and multiple enlarged lymph nodes in the vicinity, compatible with duodenitis or neoplastic process, further evaluation recommended. Status post liver transplant. at 1754 Reported and signed by: Olya Swain MD Electronically Signed: Olya Swain MD at 16:52 EST Tel , Service support , Chest X-Ray 07/27/17 16:30 IMPRESSION: Stable cardiomegaly with hyperexpansion. No acute pathology. Electronically Signed: Eugenio Santiago MD at 17:04 EST , Service support , Operations: None Procedures: EGD Summary of Care Provided: The patient is a 71 year old M [] Discharge Diet: Low fat/ Low Cholesterol, 2000 mg Sodium Diet, Carb Control Diet Discharge Activity: Return to Normal Activity Home Medications: Medications to take at Discharge Amlodipine [Norvasc] 5 mg PO DAILY 11/19/13 Levothyroxine [Synthroid] 75 mcg PO DAILY 11/19/13 Lisinopril [Zestril] 40 mg PO DAILY 11/19/13 Smz/Tmp Ds [Bactrim Ds] 1 tablet PO MOWEFR 11/19/13 Folic Acid 1 mg PO DAILY 06/09/16 Insulin Aspart [Novolog Flexpen] 5 - 10 units SC TIDCM 06/09/16 Insulin Glargine,Hum.rec.anlog [Lantus] 30 unit SQ BID 06/09/16 Lorazepam [Ativan] 1 mg PO QHS 06/09/16 Magnesium Oxide [Magnesium] 500 mg PO BID 06/09/16 Menthol/Lanolin/Calamine/Znox [Calmoseptine Ointment] 1 applic TOPICAL DAILY 06/09/16 Tacrolimus Anhydrous [Prograf] 2 mg PO BID 06/09/16 Ensure Enlive 120 ml PO 4X/DAY liquid 07/31/17 Ipratropium/Albuterol Sulfate [Duoneb] 3 ml INHALATION Q4HWA.RT ampul.neb 07/31/17 Lactulose [Chronulac] 5 ml PO BID PRN #1 bottle 07/31/17 Lorazepam [Ativan] 0.5 mg PO QHS PRN PRN #10 tab 07/31/17 Pantoprazole Sodium [Protonix] 40 mg PO BID #60 tablet 07/31/17 Following Prescrptions Were Given to Patient: Lorazepam [Ativan] 0.5 mg PO QHS PRN PRN #10 tab PRN Reason: SLEEP Pantoprazole Sodium [Protonix] 40 mg PO BID #60 tablet Primary Care Physician: Wilver Garcias MD [Primary Care Provider] - Please follow up with your Primary Care Physician in: within 2 weeks of discharge from SNF Please Follow Up With: Juan Alberto Morales MD When: within 2 weeks Disposition: [facility] facility Minutes spent on discharge:: 25 Patient Condition:: Stable Meaningful Use Info Meaningful Use Diagnoses (Choose all that apply): None applicable Code Visit Inpatient E&M: 30057 Disch Hosp
--- NOTE | 2017-08-01 14:57 | DS.PCM_ITS ---
Discharge Date and Diagnosis Date of Admission: 07/27/17 Date of Discharge: 07/31/17 - Primary Discharge Diagnosis Acute perforated duodenal ulcer, contained Acute gastritis, duodenitis - Secondary Discharge Diagnosis Chronic Problems Non-healing non-surgical wound (Chronic) Depression (Chronic) HTN (hypertension) (Chronic) Diabetes mellitus (Chronic) Alcohol abuse following liver transplant (Chronic) Alcohol abuse (Chronic) Liver transplanted (Chronic) in 2006 at [facility]; on prograft 2g bid Hospital Course and Treatment Imaging Results: Clinical Impression(s) from Imaging Studies Abdomen/Pelvis CT 07/27/17 16:30 IMPRESSION: Diffuse wall thickening of the distal esophagus with enlarged adjacent lymph nodes, could be reactive, neoplastic process is not excluded, further evaluation recommended. Marked focal wall thickening of the duodenum with severe adjacent fat stranding and multiple enlarged lymph nodes in the vicinity, compatible with duodenitis or neoplastic process, further evaluation recommended. Status post liver transplant. at 1754 Reported and signed by: Olya Swain MD Electronically Signed: Olya Swain MD at 16:52 EST Tel , Service support , Chest X-Ray 07/27/17 16:30 IMPRESSION: Stable cardiomegaly with hyperexpansion. No acute pathology. Electronically Signed: Eugenio Santiago MD at 17:04 EST , Service support , Operations: None Procedures: EGD Summary of Care Provided: The patient is a 71 year old M [] Discharge Diet: Low fat/ Low Cholesterol, 2000 mg Sodium Diet, Carb Control Diet Discharge Activity: Return to Normal Activity Home Medications: Medications to take at Discharge Amlodipine [Norvasc] 5 mg PO DAILY 11/19/13 Levothyroxine [Synthroid] 75 mcg PO DAILY 11/19/13 Lisinopril [Zestril] 40 mg PO DAILY 11/19/13 Smz/Tmp Ds [Bactrim Ds] 1 tablet PO MOWEFR 11/19/13 Folic Acid 1 mg PO DAILY 06/09/16 Insulin Aspart [Novolog Flexpen] 5 - 10 units SC TIDCM 06/09/16 Insulin Glargine,Hum.rec.anlog [Lantus] 30 unit SQ BID 06/09/16 Lorazepam [Ativan] 1 mg PO QHS 06/09/16 Magnesium Oxide [Magnesium] 500 mg PO BID 06/09/16 Menthol/Lanolin/Calamine/Znox [Calmoseptine Ointment] 1 applic TOPICAL DAILY Tacrolimus Anhydrous [Prograf] 2 mg PO BID 06/09/16 Ensure Enlive 120 ml PO 4X/DAY liquid 07/31/17 Ipratropium/Albuterol Sulfate [Duoneb] 3 ml INHALATION Q4HWA.RT ampul.neb 07/31 Lactulose [Chronulac] 5 ml PO BID PRN #1 bottle 07/31/17 Lorazepam [Ativan] 0.5 mg PO QHS PRN PRN #10 tab 07/31/17 Pantoprazole Sodium [Protonix] 40 mg PO BID #60 tablet 07/31/17 Following Prescrptions Were Given to Patient: Lorazepam [Ativan] 0.5 mg PO QHS PRN PRN #10 tab PRN Reason: SLEEP Pantoprazole Sodium [Protonix] 40 mg PO BID #60 tablet Primary Care Physician: Wilver Garcias MD [Primary Care Provider] - Please follow up with your Primary Care Physician in: within 2 weeks of discharge from SNF Please Follow Up With: Juan Alberto Morales MD When: within 2 weeks Disposition: [facility] facility Minutes spent on discharge:: 25 Patient Condition:: Stable Meaningful Use Info Meaningful Use Diagnoses (Choose all that apply): None applicable Code Visit Inpatient E&M: 59856 Disch Hosp
== END 2017-07-31 13:51 | disposition skilled nursing facility (03) | DRG 391 ==
LOC: ED 20:13 → MS2 20:36
PROVIDERS: Surgery; Admitting Provider Family Medicine; Emergency Provider Emergency Medicine; Family Provider Internal Medicine; PCP Internal Medicine; Visit Provider Internal Medicine
PROC: 0DJ08ZZ Inspection of Upper Intestinal Tract, Via Natural or Artificial Opening Endoscopic (ICD-10-PCS; CPT 43235; principal; 2017-07-28 10:25)
DX: K29.00 Acute gastritis without bleeding (principal); K26.1 Acute duodenal ulcer with perforation; N17.9 Acute kidney failure, unspecified; E87.5 Hyperkalemia; Z94.4 Liver transplant status; E11.9 Type 2 diabetes mellitus without complications; E86.0 Dehydration; K29.80 Duodenitis without bleeding; E03.9 Hypothyroidism, unspecified; F17.200 Nicotine dependence, unspecified, uncomplicated; I10 Essential (primary) hypertension; F32.9 Major depressive disorder, single episode, unspecified; F10.10 Alcohol abuse, uncomplicated; Z79.899 Other long term (current) drug therapy; Z79.4 Long term (current) use of insulin
CPT/HCPCS: 36415; 71045; 74176; 80048; 80053; 81001; 82962; 83605; 83690; 84484; 85025; 85610; 85730; 87040; 88305; 88342; 93005; 94640; 97116; 97162; 97166; 97530; 97802; 99284; J7030; A4216; J0610; J0744; J2405; J3490

== ENCOUNTER 2017-09-14 12:27 | Day surgery (SDC) | payer MEDICARE, OTHER, SELFPAY ==
[2017-09-14] VITALS (7 sets, daily range): BP systolic 135–156; BP diastolic 70–95; PULSE 78–97; RESP 16–20; TEMP 36.8–37.1; O2SAT 93–97; BMI 35.6
--- NOTE | 2017-09-14 | GASB_PTH ---
PATIENT: TEX RICHMOND LOC: EN U#:[id number] AGE/SX: 71/M ROOM: RE09/14/[address]: Dr. Juan Alberto Morales MD : 1945 BED: DIS: 09/14/2017 SPEC #: [id number] RECD: 09/14/17 14:58 STATUS: TEO ANALISA #: [id number] SHIRLENE: 09/14/17 00:[address]: Juan Alberto Morales DEPT: SURGICAL PATHOLOGY RECD BY: Fidencio Oleary ENTERED: 09/14/17 14:58 SP TYPE: Gastric Bx OTHR DR: Dr. Wilver Garcias MD Tissues: Gastric mucous membrane Procedures: Surgery Specimen Level IV HEADER OPERATION: EGD with biopsy PRE-OP DIAGNOSIS: Followup duodenal ulcer TISSUE SUBMITTED: Gastric biopsy MICROSCOPIC DIAGNOSIS Gastric biopsy: Mild gastritis. SJ:latrice 09/15/17 COMMENT The results of immunohistochemistry for Helicobacter pylori will be reported separately ([id number]). MICROSCOPIC DESCRIPTION Slides are reviewed. The specimen shows fragments of gastric mucosa with chronic inflammatory cell infiltrates in the lamina propria consisting of lymphocytes and plasma cells, consistent with mild chronic gastritis. GROSS DESCRIPTION Received in fixative is one container labeled with the patient's name and designated gastric biopsy. The specimen consists of one irregular fragment of light martinez soft tissue that measures 0.3 x 0.2 x 0.1 cm. The specimen is totally submitted in one cassette. / SJ:rg 09/14/17 TC:3 CPT: 79365
--- NOTE | 2017-09-14 | IMM_PTH ---
PATIENT: TEX RICHMOND LOC: EN U#:[id number] AGE/SX: 71/M ROOM: RE09/14/[address]: Dr. Juan Alberto Morales MD : 1945 BED: DIS: 09/14/2017 SPEC #: [id number] RECD: 09/15/17 11:14 STATUS: TEO ANALISA #: [id number] SHIRLENE: 09/14/17 00:[address]: Juan Alberto Morales DEPT: IMMUNOHISTOCHEMISTRY RECD BY: Chaz Belcher ENTERED: 09/15/17 11:14 SP TYPE: IMMUNO OTHR DR: Dr. Wilver Garcias MD Tissues: Gastric mucous membrane Procedures: H Pylori (initial) PHYSICIAN & INSTITUTION [place] [id number] SPECIMEN INFORMATION: Tissue Source: Gastric biopsy Clinical Info: Followup duodenal ulcer Specimen Number: [id number] CPT code: 94850 METHODOLOGY: Deparaffinized sections of prefer/formalin-fixed tissue or PAP/DQ stained slides are incubated with monoclonal/polyclonal antibodies/oligonucleotide probes. Localization is made via biotin free immunoperoxidase method. Appropriate controls are performed and reacted as expected. Results on target cell population are indicated in the following table: RESULTS: ANTIBODY / CLONE RESULT H Pylori (polyclonal) negative These tests were developed and their performance characteristics determined by [facility]. They may not have been cleared or approved by the U.S. Food and Drug Administration. The FDA has determined that such clearance or approval is not necessary. INTERPRETATION: Gastric biopsy: Negative for Helicobacter pylori organisms. HUMBERTO:mag 09/15/17
[2017-09-14 13:10] LABS: Bedside Glucose 152 mg/dL (70-110)
--- NOTE | 2017-09-14 13:34 | PCM.OPRPT ---
Report of Operation Date of Procedure: 09/14/17 Pre-Operative Diagnosis: PRIOR GI BLEED, DUODENITIS FOLLOW UP Post-Operative Diagnosis: PORTAL GASTROPATHY, DUODENUM NORMAL, Surgery/Procedure Performed:: EGD WITH BIOPSY phonograph needle tip maker: None Type of Anesthesia:: MAC Anesthesiologist: Maxi Brewer - ASA3 Specimen's removed: GASTRIC Description of Procedure: The patient was brought to the endoscopy suite. Sign in was performed verifying patient, site, planned procedure, critical nursing information, the patient was monitored with cardiac, pulse oximetric, and blood pressure monitoring devices. Monitored anesthetic care was provided for sedation. Following IV sedation and after the oropharynx was sprayed with Cetacaine spray, a video gastroscope was inserted in the oropharynx and advanced down the esophagus without difficulty. The scope was advanced through the stomach, through the pylorus through the duodenum to the proximal jejunum. the jejunum and duodenum appeared unremarkable. The stomach demonstrated diffuse gastropathy consistent with portal hypertensive gastropathy. The esophagus demonstrated distal distal portal hypertensive changes. Overall, the endoscopy appeared improved from his previous imaging. The patient tolerated the procedure well and was brought to recovery in stable condition
== END 2017-09-14 14:20 | disposition home or self-care (01) ==
LOC: EN 12:28 → AC 12:31
PROVIDERS: Family Provider Internal Medicine; PCP Internal Medicine; Visit Provider Surgery
PROC: 0DJ08ZZ Inspection of Upper Intestinal Tract, Via Natural or Artificial Opening Endoscopic (ICD-10-PCS; CPT 43235; principal; 2017-09-14 13:25)
DX: K29.70 Gastritis, unspecified, without bleeding (principal); K76.6 Portal hypertension; K31.89 Other diseases of stomach and duodenum; K22.0 Achalasia of cardia; F10.10 Alcohol abuse, uncomplicated; K70.30 Alcoholic cirrhosis of liver without ascites; F41.9 Anxiety disorder, unspecified; F03.90 Unspecified dementia, unspecified severity, without behavioral disturbance, psychotic disturbance, mood disturbance, and anxiety; F32.9 Major depressive disorder, single episode, unspecified; K21.9 Gastro-esophageal reflux disease without esophagitis; I10 Essential (primary) hypertension; Z94.4 Liver transplant status; G47.33 Obstructive sleep apnea (adult) (pediatric); E03.8 Other specified hypothyroidism; E11.9 Type 2 diabetes mellitus without complications; E55.9 Vitamin D deficiency, unspecified; F17.210 Nicotine dependence, cigarettes, uncomplicated; Z79.4 Long term (current) use of insulin; Z79.51 Long term (current) use of inhaled steroids; Z79.899 Other long term (current) drug therapy
CPT/HCPCS: 43239; 82962; 88305; 88342; J7120

== ENCOUNTER 2019-02-02 10:53 | Inpatient (IN) | payer MEDICARE, OTHER, SELFPAY ==
[2019-02-02] VITALS (13 sets, daily range): BP systolic 139–176; BP diastolic 83–93; PULSE 100–121; RESP 15–25; TEMP 36.4–37.2; O2SAT 92–97; BMI 34.5; BMI 37.4; BMI 36.2
[2019-02-02 11:05] LABS: Bedside Glucose 95 mg/dL (70-110)
--- NOTE | 2019-02-02 11:17 | CT_ITS ---
STUDY: CT BRAIN WITHOUT CONTRAST REASON FOR EXAM: Male, 73 years old. Unresponsive patient. Possible low blood sugar RADIATION DOSAGE (If Supplied By Facility): CTDIvol = ( 44.99 ) mGy, DLP = ( 796.11 ) mGycm TECHNIQUE: Transaxial CT imaging of the brain was performed without administration of intravenous contrast material. Individualized dose optimization techniques were used for this CT. COMPARISON: 06/09/2016 FINDINGS: Normal soft tissue structures. Normal calvarium. There is moderate cerebral atrophy with widening of the extra-axial spaces and ventricular dilatation. There are areas of decreased attenuation within the white matter tracts of the supratentorial brain, consistent with microvascular disease changes. Normal basal ganglia and thalami. Normal brainstem. There is mild cerebellar atrophy. There is no intracranial hemorrhage. There are no findings of an acute ischemic infarction. There is mucoperiosteal inflammatory disease of the paranasal sinuses consistent with mild chronic sinusitis. CT/Brain/Head without Contrast IMPRESSION: Chronic involutional changes of the brain. Electronically Signed: Alex Aguayo DO at 12:04 EDT Tel , Service support ,
--- NOTE | 2019-02-02 11:17 | EKG12_ITS ---
Test Reason : Blood Pressure : / mmHG Vent. Rate : 093 BPM Atrial Rate : 093 BPM P-R Int : 234 ms QRS Dur : 132 ms QT Int : 378 ms P-R-T Axes : 062 042 023 degrees QTc Int : 469 ms Sinus rhythm with 1st degree A-V block Right bundle branch block Abnormal ECG Confirmed by BRIDGET RAI ([id number]), commercial production editor BEATRIZ MOREL ([id number]) on 02/03/2019 2:20:54 PM Referred By: Mignon Dawkins Confirmed By:BRIDGET RAI
--- NOTE | 2019-02-02 11:18 | ED.DCSUM_ITS ---
- ER Visit Summary Date of Service: 02/02/19 Chief Complaint: Low blood sugar History of Present Illness: The patient is a 73 M history of insulin dependent diabetes, renal insufficiency and hypertension. 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 He thinks he may have had a se izure last likely 7 he woke up his room was in disarray and there were things all over the place. Patient believes he bit his tongue. He denies any headache or chest pain. He denies any recent illness. Patient took his insulin last night but did not eat dinner. An episode of low blood sugar today was treated by squad with IV glucose. Physical Examination: Older male no acute distress. Vital signs are stable. He is afebrile. H EENT exam unremarkable atraumatic. Left side of his tongue he feels like he bit his calcium bite nessa it is minimally swollen. There is no bleeding or bruising. There is no trauma to his face or scalp. No facial droop. Normal speech. Neck nontender. Lungs clear to auscultation. Heart regular rhythm no murmur. Abdomen is soft and nontender. Normal bowel sounds no peritoneal signs. Remedies patient moves all 4. Calves with no edema. Neurologically he is awake and alert. He has normal steward/stewardess lounge strength. Normal dorsi plantarflexion. Normal speech. No focal motor deficits. Test Results: CBC shows a white count 13.7. Hemoglobin 16. No bands. Electrolytes sodium 131. Gap of 12. BUN 25 creatinine 2. Liver enzymes are slight elevations of alk phos, ALT and AST patient does drink and he had a liver transplant. EKG sinus rhythm rate of 93 with right bundle branch block unchanged from a prior EKG. His chronic changes no acute bleed. Read by the radiologist. Emergency Department Course and Treatment: Older male with a diabetic that took his insulin but did not eat last night. Had a episode of hypoglycemia this morning. Was treated with glucose prior to arrival. He is concerned he may have had a seizure last night. Repeat exam patient is doing well at 1530 p.m. I discussed with him his drinking and his liver transplant. He does not want to do anything with detox at this time. He wants to be discharged to home. Patient was treated with p.o. Ativan. Treatment Plan: The patient is tremoring and very anxious and tachycardic I do think he is going through alcohol withdrawal. My concern was able to go home and fall again or have a bad outcome and we were able to discuss questions and he is willing to be admitted I have the hospitalist on page. Disposition: admit Impression: Acute hypoglycemic reaction History of insulin-dependent diabetes Status post liver transplant History of alcohol abuse Acute alcohol withdrawal Possible withdrawal seizure This note was generated with [employer] dictation software. It may contain incorrect words, spelling, and punctuation that were not noted in review of the chart prior to signing ED Disposition - Plan for ED Patient: Disposition: Home or Assisted Living Instructions: Diabetic Insulin Reaction Referrals: Wilver Garcias MD [Primary Care Provider] - 3-5 Days Additional Instructions: Stop drinking. Follow-up with your doctor. Return if feeling worse.
[2019-02-02 11:59] LABS: Absolute Neutrophil Count 12.1 X10^3/uL (2.0-7.7); Basophil# 0.02 X10^3/uL; Basophil% 0.1 % (0-1); Eosinophil# 0.02 X10^3/uL; Eosinophils% 0.1 % (0-5); Hematocrit 45.8 % (40-54); Hemoglobin 16.3 g/dL (13.0-16.5); Lymphocyte % 2.2 % (19-41); Mean Corp Hgb Conc 35.6 g/dL (32-36); Mean Corpuscular Volume 98.3 fL (80-94); Mean Platelet Vol. 10.8 fl (6.2-12.0); Monocyte# 1.15 X10^3/uL; Monocyte% 8.4 % (0-10); NRBC Flagged by Analyzer 0 % (0-5); Neutrophil # 12.13 X10^3/uL (2.7-7.7); Neutrophil % 88.6 % (47-70); POSITIVE DIFFERENTIAL YES; Platelet Count 188 K/mm3 (150-450); RBC Distribution Width CV 13.2 % (11.6-14.6); RBC Distribution Width SD 47.5 fl (35.1-43.9); Red Blood Count 4.66 M/mm3 (4.6-6.2); White Blood Count 13.7 K/mm3 (4.4-11.0)
[2019-02-02 12:02] LABS: Differential Indicated SCAN CRITERIA MET
[2019-02-02 12:06] LABS: AST(SGOT) 290 U/L (15-37); Alanine Aminotransfer ALT/SGPT 172 U/L (16-61); Albumin, Serum 3.6 g/dL (3.2-5.0); Alkaline Phosphatase 122 U/L (45-117); Anion Gap 12 (5-15); BUN 25 mg/dL (7-18); BUN/Creat Ratio 12.3 RATIO (10-20); Bilirubin, Direct 0.23 mg/dL (0.00-0.30); Calcium,Total 8.8 mg/dL (8.5-10.1); Chloride 96 mmol/L (98-107); Creatinine, Serum 2.04 mg/dL (0.70-1.30); EST Glomerular Filtration Rate 34 mL/min (>60); Est Glom Filt Rate - Afr Amer 41 mL/min (>60); Estimated Creatinine Clearance 30.15 ml/min; Globulin 3.7 g/dL (2.2-4.2); Glucose 82 mg/dL (74-106); Potassium 4.3 mmol/L (3.5-5.1); Protein, Total 7.3 g/dL (6.4-8.2); Sodium Level 131 mmol/L (136-145)
[2019-02-02 13:25] LABS: Bedside Glucose 82 mg/dL (70-110)
[2019-02-02 13:25] LABS: Bedside Glucose 51 mg/dL (70-110)
--- NOTE | 2019-02-02 15:37 | ED.DEP ---
ED Disposition - Plan for ED Patient: Disposition: Home or Assisted Living Instructions: Diabetic Insulin Reaction Referrals: Wilver Garcias MD [Primary Care Provider] - 3-5 Days Additional Instructions: Stop drinking. Follow-up with your doctor. Return if feeling worse.
[2019-02-02 15:51] LABS: Bedside Glucose 93 mg/dL (70-110)
[2019-02-02] MEDS: LORazepam 1 MG Tablet PO (16:33)
--- NOTE | 2019-02-02 16:57 | EKG12_ITS ---
Test Reason : ADMISSION Blood Pressure : / mmHG Vent. Rate : 109 BPM Atrial Rate : 109 BPM P-R Int : 200 ms QRS Dur : 120 ms QT Int : 352 ms P-R-T Axes : 074 071 035 degrees QTc Int : 474 ms Sinus tachycardia Right bundle branch block Abnormal ECG When compared with ECG of 02-FEB-2019 11:19, MANUAL COMPARISON REQUIRED, DATA IS UNCONFIRMED Confirmed by CEFERINO AMBRIZ, AMBROSE ([id number]), senior technical editor BEATRIZ MOREL ([id number]) on 02/08/2019 1:56:35 PM Referred By: Mignon Dawkins Confirmed By:HARSHA DE LA VEGA MD
--- NOTE | 2019-02-02 16:58 | PCM.HP.STD ---
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 He has been more SOB over the past week. Today he fell and had uncontrollable muscle spasms in his upper and lower extremities. He had an episode of tongue biting but on further questioning this occurred last week. He states he thought he had a seizure because when he fell his extremity spasms were out of control. He had no loss of consciousness, no loss of bowel / bladder control, no post ictal phase, no tongue biting that time. He was brought by the emergency squad who noted low blood sugar and gave him IV dextrose. He continues to drink 3 glasses of vodka daily of low proof vodka. He also continues to smoke 3/4 pack per day. 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 He c/o abdominal distention, wheezing, SOB, tremor, and productive cough, racing heart and palpitations. No fever/chills, no CP. [] Past Medical History Past Medical History (Chronic Problems): Chronic Problems Non-healing non-surgical wound (Chronic) Depression (Chronic) HTN (hypertension) (Chronic) Diabetes mellitus (Chronic) Alcohol abuse following liver transplant (Chronic) Alcohol abuse (Chronic) Liver transplanted (Chronic) in 2006 at [facility]; on prograft 2g bid Allergies cortisone [Cortisone] Allergy (Verified 07/27/17 15:59) Angioedema Penicillins Allergy (Verified 07/27/17 15:59) Unknown Home Medications: Ambulatory Orders Medication Instructions Recorded Amlodipine [Norvasc] 5 mg PO DAILY 11/19/13 Levothyroxine [Synthroid] 75 mcg PO DAILY 11/19/13 Lisinopril [Zestril] 40 mg PO DAILY 11/19/13 Smz/Tmp Ds [Bactrim Ds] 1 tablet PO MOWEFR 11/19/13 Folic Acid 1 mg PO DAILY 06/09/16 Insulin Aspart [Novolog Flexpen] 20 units SC BID PRN PRN 06/09/16 Menthol/Lanolin/Calamine/Znox 1 applic TOPICAL DAILY 06/09/16 [Calmoseptine Ointment] Tacrolimus Anhydrous [Prograf] 2 mg PO BID 06/09/16 Insulin Glargine,Hum.rec.anlog 30 unit SQ BID 09/07/17 [Basaglar Kwikpen U-100] Pantoprazole Sodium [Protonix] 40 mg PO DAILY 09/07/17 Albuterol Aerosols [Ventolin 2.5 mg INHALATION Q4HWA.RT 02/02/19 Aerosols] Magnesium Oxide [Magnesium] 500 mg PO BID 02/02/19 Paroxetine [Paxil] 20 mg PO DAILY 02/02/19 Surgical History: - - Liver transplantation, parathyroidectomy Psychiatric History: Depression, - - Alcoholism Lives: Alone Smoking Status: Current every day smoker Tobacco Use: Cigarettes Alcohol: Heavy Drugs: None - *Family History Paternal History Items: No pertinent history Maternal History Items: No pertinent history Review of Systems Constitutional: Denies: Chills, Fever, Weight Change HEENT: Denies: Head Aches, Sinus Congestion, Sinus Drainage Cardiovascular: Reports: Edema, Palpitations. Denies: Chest Pain, Chest Pressure, Chest Tightness, Heaviness, Light Headedness, Syncope Respiratory: Reports: Cough, Shortness of Breath, Shortness of breath at rest, Shortness of breath upon exertion, Sputum production, Wheezing. Denies: Hemoptysis, Pleuritic Pain Gastrointestinal: Reports: - - distention. Denies: Abdominal Pain, Nausea, Vomiting Genitourinary: Denies: Dysuria Musculoskeletal: Denies: Joint Pain, Joint Tenderness Skin: Denies: Rash, Wounds Neurological: Reports: Tremor. Denies: Focal weakness, Numbness, Tingling Psychiatric: Denies: Anxiety, Depression, Homicidal Ideations, Suicidal Ideations Hematologic/ Lymphatic: Denies: Easy Bruising, Easy Bleeding VTE Information - Inpt Only VTE Present on Admission: No VTE Mechan Device Prophylaxis: None VTE Pharm Prophylaxis ordered?: Yes Patient Problems: Active and Suspected Problems COPD exacerbation (Acute) Alcohol withdrawal (Acute) - Physical Exam General: Alert, Oriented x3, Cooperative HEENT: Atraumatic, PERRLA, EOMI, Normocephalic Neck: Supple, No JVD, Negative Carotid Bruits Lungs: Diminished, Short of Breath, Wheezes Cardiovascular: Regular rate, No murmurs, Tachycardic Abdomen: Bowel Sounds Present, Soft, Non Tender, Distended, Obese Extremities: Capillary Refill Less than 3 Seconds, Edema - 1-2+ pitting edema BLE Skin: No rashes, No breakdown Musculoskeletal: No Tenderness to Palpation of Joints or Extremities Neurological: Cranial nerves II-XII grossly intact, - - tremor Psych/Mental Status: Normal Affect, Appropriate, Alert and oriented to time, place, person, mood and affect Vital Signs Temp Pulse Resp BP Pulse Ox 97.5 F L 116 H 25 H 166/91 H 97 02/02/19 10:54 02/02/19 15:39 02/02/19 15:39 02/02/19 15:39 02/02/19 15:39 Oxygen Flow Rate (L/min) 2 Oxygen Delivery Method Room Air Weight: 239 lb 3.225 oz Body Mass Index (BMI) 37.4 Finger Stick Blood Glucose 93 Laboratory Tests Past 24 Hrs 02/02/19 02/02/19 11:30 11:30 WBC 13.7 H RBC 4.66 Hgb 16.3 Hct 45.8 MCV 98.3 H MCH 35.0 H MCHC 35.6 RDW Std Deviation 47.5 H RDW Coeff of Kecia 13.2 Plt Count 188 MPV 10.8 Immature Gran % (Auto) 0.600 Neut % (Auto) 88.6 H Lymph % (Auto) 2.2 L Merrick % (Auto) 8.4 Eos % (Auto) 0.1 Baso % (Auto) 0.1 Absolute Neuts (auto) 12.1 H Absolute Lymphs (auto) 0.30 L Nucleated RBC % 0 Differential Comment COMMENT Sodium 131 L Potassium 4.3 Chloride 96 L Carbon Dioxide 23.0 Anion Gap 12 BUN 25 H Creatinine 2.04 H Estim Creat Clear Calc 30.15 Est GFR (MDRD) Af Amer 41 L Est GFR (MDRD) Non-Af 34 L BUN/Creatinine Ratio 12.3 Glucose 82 Calcium 8.8 Total Bilirubin 0.60 Direct Bilirubin 0.23 AST 290 H ALT 172 H Alkaline Phosphatase 122 H Total Protein 7.3 Albumin 3.6 Globulin 3.7 POC Glucose 02/02/19 02/02/19 02/02/19 15:43 13:21 12:12 POC Glucose 93 82 51 L 02/02/19 11:02 POC Glucose 95 Assessment/Plan All Active Problems COPD exacerbation (Acute) Alcohol withdrawal (Acute) Abdominal pain (Acute) Infected ulcer of skin (Acute) Nausea & vomiting (Acute) 1. Acute alcohol withdrawal - start librium with ativan PRN, folate, thiamine, CIWA protocol, seizure precautions. I do not suspect that he had a seizure today. He never lost consciousness, no tongue biting, no loss of bowel / bladder, no post ictal phase. Drinks 3 glasses low proof vodka daily. Some hyponatremia suspect 2/2 alcoholism. Check mag/phos, check TSH. CT brain negative. -he is severely tachycardic up to 140 in the ER. EKG requested. No hx dysrythmia. 2. Acute COPD exacerbation - ongoing SOB and severe wheezing. Start solumedrol and aerosol therapy. Need to obtain CXR to r/o underlying pna. No fever, but there is leukocytosis. He has a productive cough. 3. HECTOR - IV fluids 4. s/p Liver transplant - continue tacrolimus, LFTs elevated, continue prophylactic bactrim - renal dose 5. IDDM with obesity with hypoglycemia - hold tonights long acting insulin. SSI. Restart if he starts eating. Dietary consult. 6. Hypothyroid - check tsh. continue synthroid 7. Depression - states he started drinking again as he is depressed from going blind. He needs psychatric referral at discharge. 8. Nicotine abuse - smokes 3/4 ppd, desires patch DVT ppx: Heparin DC Planning: PTOT This patient was seen by Jaxon Spangler PA-C under the supervision of Dr. Dawkins.
--- NOTE | 2019-02-02 17:00 | RAD_ITS ---
STUDY: X-RAY CHEST REASON FOR EXAM: Male, 73 years old. Chest pain TECHNIQUE: Single frontal view of the chest. COMPARISON: July 27, 2017 FINDINGS: The lungs are clear and expanded. There is no demonstrated pleural abnormality. Normal size heart. Normal mediastinum and shaji. Normal visualized pulmonary arteries. Normal visualized aortic arch and descending thoracic aorta. Normal visualized thoracic spine. Normal visualized ribs, clavicles, and shoulders. There is no demonstrated abnormality of the visualized soft tissue structures of the upper abdomen. RAD/Chest 1 View (Portable) IMPRESSION: Normal x-ray examination of the chest. Electronically Signed: Claudio Parr MD at 17:14 EDT , Service support ,
[2019-02-02 17:40] LABS: Bedside Glucose 95 mg/dL (70-110)
[2019-02-02 17:43] LABS: Magnesium 1.8 mg/dL (1.6-2.6); Phosphorus 3.4 mg/dL (2.5-4.9)
[2019-02-02] MEDS: 0.9% Normal Saline 1,000 ML 125 ML IV (18:29)
[2019-02-02] MEDS: Ipratropium/Albuterol Sulfate 3 ML AMPUL.NEB INHALATION (19:20)
[2019-02-02] MEDS: Smz/Tmp Ds Tablet 1 TABLET PO (20:32)
[2019-02-02] MEDS: Thiamine Hydrochloride 100 MG Tablet PO (20:32)
[2019-02-02] MEDS: Folic Acid 1 MG Tablet PO (20:32)
[2019-02-02] MEDS: MethylPREDNISolone 125 MG/2 ML Vial IV (20:37)
[2019-02-02] MEDS: chlordiazePOXIDE 25 MG Capsule 50 MG PO (20:37)
[2019-02-02] MEDS: Ceftriaxone 1 GM/50 ML BAG IV (20:37)
--- NOTE | 2019-02-02 20:43 | NURSING ---
PATIENT C/O SOB. SATTING 90% ON RA. PLACED ON 2L NC NOW SATTING 95%. CAUGHT UP ON ADMISSION MAR ORDERS AT THIS TIME D/T DAYSHIFT NOT GETTING TO THEM.
[2019-02-02] MEDS: traZODone 50 MG Tablet PO (21:46)
[2019-02-02] MEDS: Tacrolimus Anhydrous 1 MG Capsule 2 MG PO (21:46)
[2019-02-02] MEDS: Heparin Injection (Vial) 5,000 UNIT/ML VIAL 5000 UNIT SC (21:46)
[2019-02-02] MEDS: Insulin Lispro 100 UNIT/ML INSULN.PEN SC (21:47)
[2019-02-02 22:36] LABS: Bedside Glucose 230 mg/dL (70-110)
[2019-02-02 23:16] LABS: Amphetamine Urine VISTA NEGATIVE (<1000 ng/mL); Barbiturate Urine VISTA NEGATIVE (< 200 ng/mL); Benzodiazepine Urine VISTA NEGATIVE (< 200 ng/mL); Cocaine Urine VISTA NEGATIVE (< 300 ng/mL); Ecstacy Urine VISTA NEGATIVE (< 500 ng/mL); Methadone Urine VISTA NEGATIVE (< 300 ng/mL); PCP Urine VISTA NEGATIVE (< 25 ng/mL); THC Urine VISTA NEGATIVE (< 50 ng/mL); Vista UDS pH Range 5
[2019-02-03] VITALS (18 sets, daily range): BP systolic 140–159; BP diastolic 72–96; PULSE 87–120; RESP 12–20; TEMP 36.7–37.1; O2SAT 93–98
[2019-02-03] MEDS: LORazepam 2 MG/ML Syringe 1 MG IV ×2 (00:35→17:52)
[2019-02-03] MEDS: chlordiazePOXIDE 25 MG Capsule PO ×4 (03:04→22:30)
[2019-02-03] MEDS: 0.9% Normal Saline 1,000 ML 125 ML IV ×3 (03:04→20:04)
[2019-02-03] MEDS: Levothyroxine 75 MCG Tablet PO (05:46)
[2019-02-03 06:21] LABS: Absolute Lymphocyte Count 0.23 X10^3/uL (0.83-4.51); Basophil# 0.01 X10^3/uL; Basophil% 0.2 % (0-1); Hematocrit 46.6 % (40-54); Lymphocyte # 0.23 X10^3/ul (4.0); Lymphocyte % 3.6 % (19-41); Mean Corp Hgb Conc 34.3 g/dL (32-36); Mean Corpuscular Hgb 34.2 pg (27.0-32.0); Mean Corpuscular Volume 99.6 fL (80-94); Mean Platelet Vol. 10.5 fl (6.2-12.0); Monocyte# 0.06 X10^3/uL; Monocyte% 0.9 % (0-10); NRBC Flagged by Analyzer 0 % (0-5); Neutrophil # 6.02 X10^3/uL (2.7-7.7); Neutrophil % 94.7 % (47-70); POSITIVE DIFFERENTIAL YES; Platelet Count 155 K/mm3 (150-450); RBC Distribution Width CV 13.8 % (11.6-14.6); RBC Distribution Width SD 50.4 fl (35.1-43.9); Red Blood Count 4.68 M/mm3 (4.6-6.2); White Blood Count 6.4 K/mm3 (4.4-11.0)
[2019-02-03 06:27] LABS: Differential Indicated SCAN CRITERIA MET
[2019-02-03 06:45] LABS: ALB/GLOB Ratio 0.9 RATIO (0.9-2.4); AST(SGOT) 163 U/L (15-37); Alanine Aminotransfer ALT/SGPT 147 U/L (16-61); Albumin, Serum 3.4 g/dL (3.2-5.0); Alkaline Phosphatase 121 U/L (45-117); Anion Gap 11 (5-15); BUN 24 mg/dL (7-18); BUN/Creat Ratio 14.4 RATIO (10-20); Calcium,Total 8.6 mg/dL (8.5-10.1); Chloride 98 mmol/L (98-107); Creatinine, Serum 1.67 mg/dL (0.70-1.30); EST Glomerular Filtration Rate 43 mL/min (>60); Est Glom Filt Rate - Afr Amer 52 mL/min (>60); Estimated Creatinine Clearance 36.83 ml/min; Globulin 3.8 g/dL (2.2-4.2); Glucose 254 mg/dL (74-106); Magnesium 1.8 mg/dL (1.6-2.6); Phosphorus 3.7 mg/dL (2.5-4.9); Potassium 5.8 mmol/L (3.5-5.1); Protein, Total 7.2 g/dL (6.4-8.2); Sodium Level 130 mmol/L (136-145)
[2019-02-03] MEDS: Insulin Lispro 100 UNIT/ML INSULN.PEN SC ×4 (06:50→22:25)
[2019-02-03 07:01] LABS: Bedside Glucose 252 mg/dL (70-110)
[2019-02-03] MEDS: Ipratropium/Albuterol Sulfate 3 ML AMPUL.NEB INHALATION ×5 (07:17→23:15)
[2019-02-03] MEDS: Thiamine Hydrochloride 100 MG Tablet PO (09:00)
[2019-02-03] MEDS: Multivitamins,Therapeutic Tablet 1 TABLET PO (09:00)
[2019-02-03] MEDS: Folic Acid 1 MG Tablet PO (09:00)
[2019-02-03] MEDS: Heparin Injection (Vial) 5,000 UNIT/ML VIAL 5000 UNIT SC ×2 (09:01→22:25)
[2019-02-03] MEDS: amLODIPine 5 MG Tablet PO (09:01)
[2019-02-03] MEDS: Pantoprazole Sodium 40 MG Tablet PO (09:02)
[2019-02-03] MEDS: Tacrolimus Anhydrous 1 MG Capsule 2 MG PO ×2 (09:02→22:26)
[2019-02-03 09:45] LABS: Potassium 5.3 mmol/L (3.5-5.1)
--- NOTE | 2019-02-03 11:49 | PCM.PROGNOTE ---
<Vaishali Winkler - Last Filed: 02/03/19 12:11> Patient Problems: Active and Suspected Problems COPD exacerbation (Acute) Alcohol withdrawal (Acute) Subjective: Patient seen and examined. Drowsy during assessment. Shortness of breath improved. Denies significant withdrawal symptoms. - Physical Exam General: Alert, Oriented x3, Cooperative HEENT: Atraumatic, PERRLA, EOMI, Normocephalic Neck: Supple, No JVD, Negative Carotid Bruits Lungs: Diminished, Wheezes Cardiovascular: Regular Rhythm, Normal S1, Normal S2, No murmurs, Tachycardic Abdomen: Bowel Sounds Present, Soft, Non Tender, Non-Distended, Obese Extremities: No clubbing, No cyanosis, No edema, Capillary Refill Less than 3 Seconds Skin: No rashes, No breakdown Musculoskeletal: No Tenderness to Palpation of Joints or Extremities Neurological: Cranial nerves II-XII grossly intact, Neuro grossly intact Psych/Mental Status: Normal Affect, Appropriate Vital Signs Temp Pulse Resp BP Pulse Ox 98.3 F 116 H 16 140/95 H 94 02/03/19 05:43 02/03/19 11:17 02/03/19 11:17 02/03/19 05:43 02/03/19 07:17 Oxygen Flow Rate (L/min) 2 Oxygen Delivery Method Room Air Weight: 231 lb 3.215 oz Body Mass Index (BMI) 36.2 Finger Stick Blood Glucose 93 Intake and Output for Last 24 Hours 02/01/19 02/02/19 02/03/19 23:59 23:59 23:59 Intake Total 1158 / 1158 708 / 708 Output Total 150 / 150 150 / 150 Balance 1008 / 1008 558 / 558 Microbiology Past 72 Hours 02/02/19 22:30 Streptococcus pneumoniae Antigen (M - Final Urine, Clean Catch 02/02/19 22:30 Legionella Antigen - Final Urine, Clean Catch Laboratory Tests Past 24 Hrs 02/02/19 02/02/19 02/02/19 11:30 11:30 11:30 WBC 13.7 H RBC 4.66 Hgb 16.3 Hct 45.8 MCV 98.3 H MCH 35.0 H MCHC 35.6 RDW Std Deviation 47.5 H RDW Coeff of Kecia 13.2 Plt Count 188 MPV 10.8 Immature Gran % (Auto) 0.600 Neut % (Auto) 88.6 H Lymph % (Auto) 2.2 L [place] % (Auto) 8.4 Eos % (Auto) 0.1 Baso % (Auto) 0.1 Absolute Neuts (auto) 12.1 H Absolute Lymphs (auto) 0.30 L Nucleated RBC % 0 Differential Comment COMMENT Sodium 131 L Potassium 4.3 Chloride 96 L Carbon Dioxide 23.0 Anion Gap 12 BUN 25 H Creatinine 2.04 H Estim Creat Clear Calc 30.15 Est GFR (MDRD) Af Amer 41 L Est GFR (MDRD) Non-Af 34 L BUN/Creatinine Ratio 12.3 Glucose 82 Calcium 8.8 Phosphorus 3.4 Magnesium 1.8 Total Bilirubin 0.60 Direct Bilirubin 0.23 AST 290 H ALT 172 H Alkaline Phosphatase 122 H Total Protein 7.3 Albumin 3.6 Globulin 3.7 Albumin/Globulin Ratio Urine Opiates Screen Urine Methadone Screen Ur Barbiturates Screen Ur Phencyclidine Scrn Ur Amphetamines Screen U Methamphetamin-MDMA U Benzodiazepines Scrn Urine Cocaine Screen U Cannabinoids Screen Ur Drug Screen Comment Ethyl Alcohol 02/02/19 02/02/19 02/03/19 17:46 22:30 05:55 WBC 6.4 RBC 4.68 Hgb 16.0 Hct 46.6 MCV 99.6 H MCH 34.2 H MCHC 34.3 RDW Std Deviation 50.4 H RDW Coeff of Kecia 13.8 Plt Count 155 MPV 10.5 Immature Gran % (Auto) 0.600 Neut % (Auto) 94.7 H Lymph % (Auto) 3.6 L [place] % (Auto) 0.9 Eos % (Auto) 0.0 Baso % (Auto) 0.2 Absolute Neuts (auto) 6.0 Absolute Lymphs (auto) 0.23 L Nucleated RBC % 0 Differential Comment Sodium Potassium Chloride Carbon Dioxide Anion Gap BUN Creatinine Estim Creat Clear Calc Est GFR (MDRD) Af Amer Est GFR (MDRD) Non-Af BUN/Creatinine Ratio Glucose Calcium Phosphorus Magnesium Total Bilirubin Direct Bilirubin AST ALT Alkaline Phosphatase Total Protein Albumin Globulin Albumin/Globulin Ratio Urine Opiates Screen NEGATIVE Urine Methadone Screen NEGATIVE Ur Barbiturates Screen NEGATIVE Ur Phencyclidine Scrn NEGATIVE Ur Amphetamines Screen NEGATIVE U Methamphetamin-MDMA NEGATIVE U Benzodiazepines Scrn NEGATIVE Urine Cocaine Screen NEGATIVE U Cannabinoids Screen NEGATIVE Ur Drug Screen Comment Ethyl Alcohol 10.0 08/15/19 08/15/19 05:55 09:25 WBC RBC Hgb Hct MCV MCH MCHC RDW Std Deviation RDW Coeff of Kecia Plt Count MPV Immature Gran % (Auto) Neut % (Auto) Lymph % (Auto) [place] % (Auto) Eos % (Auto) Baso % (Auto) Absolute Neuts (auto) Absolute Lymphs (auto) Nucleated RBC % Differential Comment Sodium 130 L Potassium 5.8 H 5.3 H Chloride 98 Carbon Dioxide 21.0 Anion Gap 11 BUN 24 H Creatinine 1.67 H Estim Creat Clear Calc 36.83 Est GFR (MDRD) Af Amer 52 L Est GFR (MDRD) Non-Af 43 L BUN/Creatinine Ratio 14.4 Glucose 254 H Calcium 8.6 Phosphorus 3.7 Magnesium 1.8 Total Bilirubin 0.70 Direct Bilirubin AST 163 H ALT 147 H Alkaline Phosphatase 121 H Total Protein 7.2 Albumin 3.4 Globulin 3.8 Albumin/Globulin Ratio 0.9 Urine Opiates Screen Urine Methadone Screen Ur Barbiturates Screen Ur Phencyclidine Scrn Ur Amphetamines Screen U Methamphetamin-MDMA U Benzodiazepines Scrn Urine Cocaine Screen U Cannabinoids Screen Ur Drug Screen Comment Ethyl Alcohol POC Glucose 02/03/19 02/02/19 02/02/19 06:49 21:43 17:34 POC Glucose 252 H 230 H 95 02/02/19 02/02/19 02/02/19 15:43 13:21 12:12 POC Glucose 93 82 51 L Medical Necessity - Tobacco Use Smoking Status: Current every day smoker Tobacco Use: Cigarettes Assessment/Plan All Active Problems COPD exacerbation (Acute) Alcohol withdrawal (Acute) Abdominal pain (Acute) Infected ulcer of skin (Acute) Nausea & vomiting (Acute) 1. Acute alcohol withdrawal, chronic alcohol dependence-Librium taper, folate, thiamine supplementation. [facility] protocol. 2. Acute exacerbation of COPD-shortness of breath and wheezing improving. Continue IV Solu-Medrol. Albuterol and DuoNeb aerosols. Wean oxygen to maintain O2 sat above 90%. Patient was not documented to be hypoxic. Patient placed on IV Rocephin on admission, feel this can be discontinued. Chest x-ray without evidence of pneumonia. 3. Acute kidney injury with associated hyperkalemia-improving with hydration. Trend BMP. 4. Hyponatremia-secondary to #1. Trend BMP. 5. Type 2 diabetes mellitus-continue home insulin regimen. Accu-Cheks before meals at bedtime with sliding scale insulin. 6. Alcoholic cirrhosis status post liver transplant-continue home Prograf, Bactrim regimen. 7. Hypothyroidism-continue home Synthroid regimen. 8. Depression/anxiety-recommend psychiatric referral as outpatient. Continue home Paxil regimen. 9. Hypertension-stable, continue home amlodipine, lisinopril regimen. 10. Obesity- diet and lifestyle modifications encouraged. 11. Tobacco dependence-encouraged smoking cessation. Nicotine replacement patch. DVT prophylaxis- Heparin sc This patient was seen by DAMIR Perez under the supervision of Dr. Garcia. <Kvng Garcia - Last Filed: 02/03/19 13:07> - Physical Exam Vital Signs Temp Pulse Resp BP Pulse Ox 98.7 F 116 H 16 151/72 H 98 02/03/19 08:55 02/03/19 11:17 02/03/19 11:17 02/03/19 08:55 02/03/19 08:55 Oxygen Flow Rate (L/min) 2 Oxygen Delivery Method Nasal Cannula Weight: 104.871 kg Body Mass Index (BMI) 36.2 Finger Stick Blood Glucose 93 Intake and Output for Last 24 Hours 02/01/19 02/02/19 02/03/19 23:59 23:59 23:59 Intake Total 1158 / 1158 1595 / 1595 Output Total 150 / 150 550 / 550 Balance 1008 / 1008 1045 / 1045 Microbiology Past 72 Hours 02/02/19 22:30 Streptococcus pneumoniae Antigen (M - Final Urine, Clean Catch 02/02/19 22:30 Legionella Antigen - Final Urine, Clean Catch Laboratory Tests Past 24 Hrs 02/02/19 02/02/19 02/02/19 11:30 17:46 22:30 WBC RBC Hgb Hct MCV MCH MCHC RDW Std Deviation RDW Coeff of Kecia Plt Count MPV Immature Gran % (Auto) Neut % (Auto) Lymph % (Auto) [place] % (Auto) Eos % (Auto) Baso % (Auto) Absolute Neuts (auto) Absolute Lymphs (auto) Nucleated RBC % Sodium Potassium Chloride Carbon Dioxide Anion Gap BUN Creatinine Estim Creat Clear Calc Est GFR (MDRD) Af Amer Est GFR (MDRD) Non-Af BUN/Creatinine Ratio Glucose Calcium Phosphorus 3.4 Magnesium 1.8 Total Bilirubin AST ALT Alkaline Phosphatase Total Protein Albumin Globulin Albumin/Globulin Ratio Urine Opiates Screen NEGATIVE Urine Methadone Screen NEGATIVE Ur Barbiturates Screen NEGATIVE Ur Phencyclidine Scrn NEGATIVE Ur Amphetamines Screen NEGATIVE U Methamphetamin-MDMA NEGATIVE U Benzodiazepines Scrn NEGATIVE Urine Cocaine Screen NEGATIVE U Cannabinoids Screen NEGATIVE Ur Drug Screen Comment Ethyl Alcohol 10.0 02/03/19 02/03/19 02/03/19 05:55 05:55 09:25 WBC 6.4 RBC 4.68 Hgb 16.0 Hct 46.6 MCV 99.6 H MCH 34.2 H MCHC 34.3 RDW Std Deviation 50.4 H RDW Coeff of Kecia 13.8 Plt Count 155 MPV 10.5 Immature Gran % (Auto) 0.600 Neut % (Auto) 94.7 H Lymph % (Auto) 3.6 L [place] % (Auto) 0.9 Eos % (Auto) 0.0 Baso % (Auto) 0.2 Absolute Neuts (auto) 6.0 Absolute Lymphs (auto) 0.23 L Nucleated RBC % 0 Sodium 130 L Potassium 5.8 H 5.3 H Chloride 98 Carbon Dioxide 21.0 Anion Gap 11 BUN 24 H Creatinine 1.67 H Estim Creat Clear Calc 36.83 Est GFR (MDRD) Af Amer 52 L Est GFR (MDRD) Non-Af 43 L BUN/Creatinine Ratio 14.4 Glucose 254 H Calcium 8.6 Phosphorus 3.7 Magnesium 1.8 Total Bilirubin 0.70 AST 163 H ALT 147 H Alkaline Phosphatase 121 H Total Protein 7.2 Albumin 3.4 Globulin 3.8 Albumin/Globulin Ratio 0.9 Urine Opiates Screen Urine Methadone Screen Ur Barbiturates Screen Ur Phencyclidine Scrn Ur Amphetamines Screen U Methamphetamin-MDMA U Benzodiazepines Scrn Urine Cocaine Screen U Cannabinoids Screen Ur Drug Screen Comment Ethyl Alcohol POC Glucose 02/03/19 02/02/19 02/02/19 06:49 21:43 17:34 POC Glucose 252 H 230 H 95 02/02/19 02/02/19 02/02/19 15:43 13:21 12:12 POC Glucose 93 82 51 L Assessment/Plan This patient was seen in conjunction with DAMIR Perez . I have independently interviewed and examined the patient and reviewed pertinent historical, laboratory, and other data. Please refer to DAMIR Perez note for details of this patient's presentation, findings, and recommendations. I have reviewed DAMIR Perez note and concur with documented findings. In brief, patient is a 73-year-old gentleman with multiple comorbidities who presented with acute alcohol withdrawal Physical Examination: GENERAL: Tremulous at rest HEENT: Atraumatic; EYES; Anicteric, NECK; supple, normal thyroid, RESPIRATORY: Diminished to auscultation CARDIOVASCULAR: Regular S1 S2, GI: soft, non-tender, : No Renal angle tenderness; EXTREMITIES: No edema, no clubbing, NEURO: Awake; no lateralizing signs. SKIN: No Rash PSYCH; flat affect Assessment: 1. Acute alcohol withdrawal 2. COPD with acute exacerbation 3. Acute kidney injury 4. Hyponatremia 5. Essential hypertension 6. Diabetes mellitus type 2 7. Status post liver transplant on immunosuppressant agents 8. Hyperkalemia on Bactrim held 9. Depression with anxiety 10. Obesity with BMI of 36.2 11. Tobacco dependence 11. DVT prophylaxis SC heparin Recommendations: 1. I have discussed the results of my overview and impressions with the patient 2. Options for management were reviewed Code Visit Inpatient E&M: 73238 Subs Hosp L3
[2019-02-03] MEDS: Paroxetine 20 MG Tablet PO (11:50)
[2019-02-03 13:16] LABS: Bedside Glucose 390 mg/dL (70-110)
--- NOTE | 2019-02-03 15:41 | CASEMGMT ---
Social Work Met with patient to discuss alcohol use and community resources. Spoke with patient at length about history of alcohol use. Patient has been drinking for 30 years and lost relationship with daughter d/t alcohol - have not spoke for 6 years. Pt is from for 5 years, but lives close and still assists patient with grocery shopping and medical appointments. Son lives in [place] and is busy with is work. 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 Pt reports the past year is when things starting going downhill and the drinking increased. Pt reports to drinking three 10 oz. glasses of half vodka and half water per day in the evening to take the edge off. Pt cannot drive due to vision but reports to having two previous DUIs and hasn't been driving for many years. Pt misses being able to read books, take walks, caring for 's garden, go to the grocery store and shopping at his leisure. He enjoys reading food labels and trying new foods and brands, but is no longer able to do that and just chooses the same items that he knows. Pt is struggling financially as well with only SSI and bills taking most of that income. Pt not interested in Medicaid or to qualify for Medicaid - states that is a last resort - I made a vow to my . Pt interested in a clinical psychologist private practice once a week to help with grocery shopping and going to the library to get books on tape, and possible [facility]. Pt agreeable to going to alcohol and mental health counseling. Since pt cannot see to read resources, agreed for SW to make phone calls and schedule appts for him. Provided verbal, emotional support and active listening to pt as he discussed his life. Left message with [employer] to inquire on books on tape program. Left messages with several private duty agencies for pricing and availability. Left message with [facility] for Passport referral. Left message with Loraine at [employer] for cab passes. Spoke with Scottie and scheduled appt for 02/15 from 12:15 to 2 pm. Spoke with [employer] [facility] for pricing and scheduled appt for counseling appt - pt may cancel if can take him. Spoke with [facility] to inquire on services for pt going to [facility] doctor's appts. Provided above information in large print to pt and explained info. Pt stated will be in to visit pt and can assist with resources. Upon DC, SW will refer to [facility] PT/OT/SW and CCN. Therapies ordered to evaluate pt and make DC recommendations. Will provide SW and pt with developing information prior to DC. Pt appreciative of visit. Alfreda Gerard, BLOG WRITER CHIROPRACTIC TEACHER
[2019-02-03 15:56] LABS: Bedside Glucose 435 mg/dL (70-110)
[2019-02-03] MEDS: Metoprolol Tartrate 25 MG Tablet PO (17:52)
[2019-02-03] MEDS: traZODone 50 MG Tablet PO (22:26)
[2019-02-03 22:46] LABS: Bedside Glucose 381 mg/dL (70-110)
[2019-02-04] VITALS (16 sets, daily range): BP systolic 122–160; BP diastolic 77–98; PULSE 79–102; RESP 16–20; TEMP 36.1–36.6; O2SAT 92–96
[2019-02-04] MEDS: 0.9% Normal Saline 1,000 ML 125 ML IV ×3 (04:05→20:40)
[2019-02-04] MEDS: Levothyroxine 75 MCG Tablet PO (05:42)
[2019-02-04] MEDS: chlordiazePOXIDE 25 MG Capsule PO ×2 (05:42→14:53)
[2019-02-04] MEDS: Insulin Lispro 100 UNIT/ML INSULN.PEN SC ×4 (06:49→23:03)
[2019-02-04] MEDS: Ipratropium/Albuterol Sulfate 3 ML AMPUL.NEB INHALATION ×5 (06:54→23:17)
[2019-02-04 06:55] LABS: Bedside Glucose 328 mg/dL (70-110)
[2019-02-04 08:20] LABS: ALB/GLOB Ratio 0.9 RATIO (0.9-2.4); AST(SGOT) 66 U/L (15-37); Alanine Aminotransfer ALT/SGPT 107 U/L (16-61); Albumin, Serum 3.2 g/dL (3.2-5.0); Alkaline Phosphatase 96 U/L (45-117); Anion Gap 6 (5-15); BUN 33 mg/dL (7-18); BUN/Creat Ratio 20.2 RATIO (10-20); Calcium,Total 8.5 mg/dL (8.5-10.1); Chloride 102 mmol/L (98-107); Creatinine, Serum 1.63 mg/dL (0.70-1.30); EST Glomerular Filtration Rate 44 mL/min (>60); Est Glom Filt Rate - Afr Amer 54 mL/min (>60); Estimated Creatinine Clearance 37.74 ml/min; Globulin 3.6 g/dL (2.2-4.2); Glucose 322 mg/dL (74-106); Potassium 5.5 mmol/L (3.5-5.1); Protein, Total 6.8 g/dL (6.4-8.2); Sodium Level 134 mmol/L (136-145)
[2019-02-04] MEDS: Folic Acid 1 MG Tablet PO (08:20)
[2019-02-04] MEDS: Tacrolimus Anhydrous 1 MG Capsule 2 MG PO (08:21)
[2019-02-04] MEDS: Thiamine Hydrochloride 100 MG Tablet PO (08:22)
[2019-02-04] MEDS: amLODIPine 5 MG Tablet PO (08:22)
[2019-02-04] MEDS: Heparin Injection (Vial) 5,000 UNIT/ML VIAL 5000 UNIT SC ×2 (08:24→23:02)
[2019-02-04] MEDS: Smz/Tmp Ds Tablet 1 TABLET PO (08:24)
[2019-02-04] MEDS: Pantoprazole Sodium 40 MG Tablet PO (08:25)
[2019-02-04] MEDS: Multivitamins,Therapeutic Tablet 1 TABLET PO (08:25)
[2019-02-04] MEDS: Paroxetine 20 MG Tablet PO (10:54)
[2019-02-04 11:21] LABS: Bedside Glucose 352 mg/dL (70-110)
--- NOTE | 2019-02-04 12:09 | NURSING ---
This nurse went in to see pt and he was coughing and could not stop. So much he spit up clear sputum all over his gown and in his lunch tray. This nurse going to keep pt NPO for now and have speech therapy see pt. Will informed Dr. Garcia.
--- NOTE | 2019-02-04 12:28 | PCM.PROGNOTE ---
<Vaishali Winkler - Last Filed: 02/04/19 12:47> Patient Problems: Active and Suspected Problems COPD exacerbation (Acute) Alcohol withdrawal (Acute) Subjective: Patient seen and examined. Continues to be drowsy, significant tremors. Denies current complaints however does not participate much in conversation. - Physical Exam General: Cooperative, - - Drowsy, no apparent distress HEENT: Atraumatic, PERRLA, EOMI, Normocephalic Neck: Supple, No JVD, Negative Carotid Bruits Lungs: Diminished, Wheezes Cardiovascular: Regular rate, No murmurs Abdomen: Bowel Sounds Present, Soft, Non Tender, Non-Distended, Obese Extremities: No clubbing, No cyanosis, No edema, Capillary Refill Less than 3 Seconds Skin: No rashes, No breakdown Musculoskeletal: No Tenderness to Palpation of Joints or Extremities Neurological: Cranial nerves II-XII grossly intact, Neuro grossly intact Psych/Mental Status: Normal Affect, Appropriate Vital Signs Temp Pulse Resp BP Pulse Ox 97.7 F L 88 20 H 143/98 H 95 02/04/19 10:49 02/04/19 11:28 02/04/19 11:28 02/04/19 10:49 02/04/19 10:49 Oxygen Flow Rate (L/min) 2 Oxygen Delivery Method Nasal Cannula Weight: 231 lb 3.215 oz Body Mass Index (BMI) 36.2 Finger Stick Blood Glucose 93 Intake and Output for Last 24 Hours 02/02/19 02/03/19 02/04/19 23:59 23:59 23:59 Intake Total 1158 / 1158 4139 / 4139 687 / 687 Output Total 150 / 150 1275 / 1275 Balance 1008 / 1008 2864 / 2864 687 / 687 Microbiology Past 72 Hours 02/03/19 07:50 Gram Stain - Final Sputum, Expectorated/Coughed 02/02/19 22:30 Streptococcus pneumoniae Antigen (M - Final Urine, Clean Catch 02/02/19 22:30 Legionella Antigen - Final Urine, Clean Catch Laboratory Tests Past 24 Hrs 02/04/19 07:37 Sodium 134 L Potassium 5.5 H Chloride 102 Carbon Dioxide 26.0 Anion Gap 6 BUN 33 H Creatinine 1.63 H Estim Creat Clear Calc 37.74 Est GFR (MDRD) Af Amer 54 L Est GFR (MDRD) Non-Af 44 L BUN/Creatinine Ratio 20.2 H Glucose 322 H Calcium 8.5 Total Bilirubin 0.50 AST 66 H ALT 107 H Alkaline Phosphatase 96 Total Protein 6.8 Albumin 3.2 Globulin 3.6 Albumin/Globulin Ratio 0.9 POC Glucose 02/04/19 02/04/19 02/03/19 11:00 06:48 22:24 POC Glucose 352 H 328 H 381 H 02/03/19 02/03/19 15:44 13:04 POC Glucose 435 H 390 H Medical Necessity - Tobacco Use Smoking Status: Current every day smoker Tobacco Use: Cigarettes Assessment/Plan All Active Problems COPD exacerbation (Acute) Alcohol withdrawal (Acute) Abdominal pain (Acute) Infected ulcer of skin (Acute) Nausea & vomiting (Acute) 1. Acute alcohol withdrawal, chronic alcohol dependence-Librium taper, folate, thiamine supplementation. [facility] protocol. 2. Acute exacerbation of COPD-shortness of breath and wheezing improving. DC IV Solu-Medrol. Begin prednisone 20 mg p.o. twice daily. Albuterol and DuoNeb aerosols. Wean oxygen to maintain O2 sat above 90%. Patient was not documented to be hypoxic. Patient placed on IV Rocephin on admission, discontinued. Chest x-ray without evidence of pneumonia. Afebrile, no leukocytosis. 3. Acute kidney injury with associated hyperkalemia-improving with hydration. Kayexalate x1. Trend BMP. 4. Hyponatremia-secondary to #1 and hypovolemia. Improved. Trend BMP. 5. Type 2 diabetes mellitus-continue home insulin regimen. Accu-Cheks before meals at bedtime with sliding scale insulin. 6. Alcoholic cirrhosis status post liver transplant-continue home Prograf, regimen. Bactrim on hold due to hyperkalemia. 7. Hypothyroidism-continue home Synthroid regimen. 8. Depression/anxiety-recommend psychiatric referral as outpatient. Continue home Paxil regimen. 9. Hypertension-stable, continue home amlodipine, lisinopril regimen. 10. Obesity- diet and lifestyle modifications encouraged. 11. Tobacco dependence-encouraged smoking cessation. Nicotine replacement patch. DVT prophylaxis- Heparin sc This patient was seen by DAMIR Perez under the supervision of Dr. Garcia. <Kvng Garcia - Last Filed: 02/04/19 14:19> - Physical Exam Vital Signs Temp Pulse Resp BP Pulse Ox 97.7 F L 88 20 H 143/98 H 95 02/04/19 10:49 02/04/19 11:28 02/04/19 11:28 02/04/19 10:49 02/04/19 10:49 Oxygen Flow Rate (L/min) 2 Oxygen Delivery Method Nasal Cannula Weight: 104.871 kg Body Mass Index (BMI) 36.2 Finger Stick Blood Glucose 93 Intake and Output for Last 24 Hours 02/02/19 02/03/19 02/04/19 23:59 23:59 23:59 Intake Total 1158 / 1158 4139 / 4139 1763 / 1763 Output Total 150 / 150 1275 / 1275 Balance 1008 / 1008 2864 / 2864 1763 / 1763 Microbiology Past 72 Hours 02/03/19 07:50 Gram Stain - Final Sputum, Expectorated/Coughed 02/02/19 22:30 Streptococcus pneumoniae Antigen (M - Final Urine, Clean Catch 02/02/19 22:30 Legionella Antigen - Final Urine, Clean Catch Laboratory Tests Past 24 Hrs 02/04/19 07:37 Sodium 134 L Potassium 5.5 H Chloride 102 Carbon Dioxide 26.0 Anion Gap 6 BUN 33 H Creatinine 1.63 H Estim Creat Clear Calc 37.74 Est GFR (MDRD) Af Amer 54 L Est GFR (MDRD) Non-Af 44 L BUN/Creatinine Ratio 20.2 H Glucose 322 H Calcium 8.5 Total Bilirubin 0.50 AST 66 H ALT 107 H Alkaline Phosphatase 96 Total Protein 6.8 Albumin 3.2 Globulin 3.6 Albumin/Globulin Ratio 0.9 POC Glucose 02/04/19 02/04/19 02/03/19 11:00 06:48 22:24 POC Glucose 352 H 328 H 381 H 02/03/19 15:44 POC Glucose 435 H Assessment/Plan This patient was seen in conjunction with DAMIR Perez . I have independently interviewed and examined the patient and reviewed pertinent historical, laboratory, and other data. Please refer to DAMIR Perez note for details of this patient's presentation, findings, and recommendations. I have reviewed DAMIR Perez note and concur with documented findings. In brief, patient is a 73-year-old gentleman with multiple comorbidities who presented with acute alcohol withdrawal 02/04/2019: Patient seen remains significantly tremors at rest potassium is up to 5.6 did receive Kayexalate. Also has significant wheezes. Did switch patient from IV cell Medrol to p.o. prednisone in view of persistently high glucose levels Physical Examination: GENERAL: Tremulous at rest HEENT: Atraumatic; EYES; Anicteric, NECK; supple, normal thyroid, RESPIRATORY: Diminished to auscultation with bilateral wheezes CARDIOVASCULAR: Regular S1 S2, GI: soft, non-tender, : No Renal angle tenderness; EXTREMITIES: No edema, no clubbing, NEURO: Awake; no lateralizing signs. SKIN: No Rash PSYCH; flat affect Assessment: 1. Acute alcohol withdrawal 2. COPD with acute exacerbation 3. Acute kidney injury 4. Hyponatremia 5. Essential hypertension 6. Diabetes mellitus type 2 7. Status post liver transplant on immunosuppressant agents 8. Hyperkalemia on Bactrim held 9. Depression with anxiety 10. Obesity with BMI of 36.2 11. Tobacco dependence 11. DVT prophylaxis SC heparin Recommendations: 1. I have discussed the results of my overview and impressions with the patient 2. Options for management were reviewed Code Visit Inpatient E&M: 68921 Subs Hosp L3
--- NOTE | 2019-02-04 13:14 | NURSING ---
Informed Vaishali Winkler of pt choking and this nurse made pt npo and speech eval despite not getting kayexalete. Vaishali Winkler aware that kayexalate was not given.
[2019-02-04] MEDS: Sodium Polystyrene Sulfonate 15 GM/60 ML UDC PO (14:31)
--- NOTE | 2019-02-04 14:53 | NURSING ---
Pt is more awake sitting up in chair. talking to nurse. Flat affect.
--- NOTE | 2019-02-04 14:55 | CASEMGMT ---
Addendum entered by Jyoti Nichole 02/04/19 16:29: SW spoke with Elayne at [facility] and she is able to accept pt tomorrow. SW completed convalescent 7000 in HENS and placed on pt's chart. SW placed green sheet on pt's chart. SW attempted to update pt but pt soundly sleeping. Plan: [facility] skilled tomorrow. Addendum entered by Jyoti Nichole 02/04/19 15:06: SW provided pt with list of SNF in area. Original Note: Social Work Note SW reviewed PT/OT and PT/OT are stating pt is not safe to go home at this time. SW met with pt, introduced self and role at [facility]. Pt is alert and orientated x3. SW informed pt that PT/OT are recommending pt go to SNF for rehabilitation before returning home. Pt states that he has been to [facility] before and is agreeable to going there. Pt states I wish my was involved in this but she is out of town. SW asked pt if he would like this worker to call his and update her. Pt agreeable to this worker calling his Elaine. SW informed pt that he will be at [facility] at least tonight and may be able to discharge to [facility] over the weekend if they are able to accept pt. Pt states understanding. Pt states that if he is discharged tomorrow his friend Mikey will be able to transport him ([phone]). SW informed pt that this worker will make referral to [facility] and see if they are able to accept pt. Pt states understanding, denied additional needs or concerns at this time. ALE placed a call to pt's Elaine and updated her that pt is agreeable to going to [facility] for short term rehabilitation. Elaine states understanding, would like RN to call her with an update. RN updated. ALE placed a call to Elayne at [facility] and updated her on referral. SW faxed referral. Plan: [facility] pending acceptance Jyoti Nichole MOTHER HELPER, PROPOSAL LEAD WRITER
--- NOTE | 2019-02-04 15:59 | NURSING ---
Awakened to check attends. Pt refused for staff to help use urinal, said he didnt have to go and that he was dry. Attends was wet. Pt was slightly agitated but let this nurse and CHILD CARE CENTER ADMINISTRATOR Heriberto change attends.
[2019-02-04] MEDS: predniSONE 20 MG Tablet PO (16:54)
[2019-02-04 17:11] LABS: Bedside Glucose 430 mg/dL (70-110)
--- NOTE | 2019-02-04 17:29 | CASEMGMT ---
Social Work Pt Elaine called and notified that [facility] can accept pt and that he may be discharged over the weekend. Pt agreeable and understanding. CYNDI Mensah
--- NOTE | 2019-02-04 18:34 | NURSING ---
This nurse rechecked Blood sugar at it was 460. pt states he normally takes 20 units of novolog at home w/meals. Will notify Dr. Garcia.
[2019-02-04 18:35] LABS: Bedside Glucose 460 mg/dL (70-110)
--- NOTE | 2019-02-04 18:46 | NURSING ---
Notifed Dr. Garcia of Blood sugar 460 and that pt takes 20 units with meals.
[2019-02-04] MEDS: LORazepam 2 MG/ML Syringe 1 MG IV (19:27)
[2019-02-04] MEDS: 0.9% NaCl Peripheral Flush Adult/Peds IV (19:28)
[2019-02-04] MEDS: Insulin Lispro 100 UNIT/ML INSULN.PEN 20 UNIT SC (19:35)
[2019-02-04 23:21] LABS: Bedside Glucose 380 mg/dL (70-110)
[2019-02-05] VITALS (9 sets, daily range): BP systolic 135–165; BP diastolic 79–101; PULSE 82–98; RESP 16–20; TEMP 36.4–36.7; O2SAT 94–95
[2019-02-05] MEDS: Ipratropium/Albuterol Sulfate 3 ML AMPUL.NEB INHALATION ×2 (02:37→11:23)
[2019-02-05] MEDS: Tacrolimus Anhydrous 1 MG Capsule 2 MG PO ×2 (04:36→10:05)
[2019-02-05] MEDS: 0.9% Normal Saline 1,000 ML 125 ML IV (04:36)
[2019-02-05] MEDS: Insulin Lispro 100 UNIT/ML INSULN.PEN SC ×2 (06:41→12:04)
[2019-02-05 06:47] LABS: Anion Gap 6 (5-15); BUN 34 mg/dL (7-18); BUN/Creat Ratio 23.8 RATIO (10-20); Calcium,Total 8.7 mg/dL (8.5-10.1); Chloride 107 mmol/L (98-107); Creatinine, Serum 1.43 mg/dL (0.70-1.30); EST Glomerular Filtration Rate 52 mL/min (>60); Est Glom Filt Rate - Afr Amer 62 mL/min (>60); Estimated Creatinine Clearance 43.01 ml/min; Glucose 204 mg/dL (74-106); Potassium 4.7 mmol/L (3.5-5.1); Sodium Level 139 mmol/L (136-145)
[2019-02-05 06:50] LABS: Bedside Glucose 210 mg/dL (70-110)
[2019-02-05] MEDS: predniSONE 20 MG Tablet PO (08:25)
[2019-02-05] MEDS: Multivitamins,Therapeutic Tablet 1 TABLET PO (08:25)
[2019-02-05] MEDS: Heparin Injection (Vial) 5,000 UNIT/ML VIAL 5000 UNIT SC (10:04)
[2019-02-05] MEDS: Paroxetine 20 MG Tablet PO (10:05)
[2019-02-05] MEDS: amLODIPine 5 MG Tablet PO (10:05)
[2019-02-05] MEDS: Pantoprazole Sodium 40 MG Tablet PO (10:06)
--- NOTE | 2019-02-05 10:17 | PCM.EXTCARCO ---
- Diet 02/04/19 14:24 Diet: Cardiac: Calorie-Controlled Food consistency:: Mechanical Soft/Ground Liquid Consistency:: [place] Thick Is pt able to select menu?: No Diet Comments: Supervision; seated at 90 degrees; no straws How many daily calories?: 1800 calorie - Routine Orders/Code Status Enema Type: Fleetz Enema Frequency: Daily PRN Suppository Type: Dulcolax 10mg Suppository Frequency: Daily PRN O2 Liters per Minute: 2 O2 Frequency: Continuous Keep PO Greater than or Equal to (%): 90 - ween as tolerated Routine Lab Work: CBC, BMP, - - Q Week Code Status: Full Code - Wound(s) R toe Wound Type: Abrasion - Suggestions for Active Care Change Position every (hours): 2 Times a day to sit in chair: 3 - Therapies Physical Therapy: Eval and Treat Occupational Therapy: Eval and Treat Speech Therapy: Eval and Treat - Problem/Diagnosis (1) COPD exacerbation Status: Acute Current Visit: Yes (2) Alcohol withdrawal Status: Acute Current Visit: Yes (3) Depression Status: Chronic Current Visit: No (4) HTN (hypertension) Status: Chronic Current Visit: No (5) Diabetes mellitus Status: Chronic Current Visit: No (6) Alcohol abuse following liver transplant Status: Chronic Current Visit: No - Allergies/Procedures Done in Hospital Allergies/Adverse Reactions: Allergies cortisone [Cortisone] Allergy (Verified 07/27/17 15:59) Angioedema Penicillins Allergy (Verified 07/27/17 15:59) Unknown Procedures: None - Type of Care/Length of Stay Estimated LOS: Convalescent Care Less Than 30 days Type of Care Needed: Skilled Rehab Potential: Fair Prognosis: Fair - Additional Orders/Day of Discharge Additional Orders: Recommend referral to psychiatry for management of depression, anxiety and alcohol dependence. H&P will serve as current which was dated: 02/02/19 Day of Discharge: 02/05/19 - Dietary and Speech Recommendations Dietitian Recommendations/Changes: Recommend CHO controlled, cardiac, low sodium diet w/ fluid restriction as indicated. Will provide ONS w/ meals until adequate PO intake is established. - Follow Up Care Primary Care Physician: Wilver Garcias MD [Primary Care Provider] - 3-5 Days Please follow up with your Primary Care Physician in: 1 Week
--- NOTE | 2019-02-05 10:26 | DS.PCM_ITS ---
<Vaishali Winkler - Last Filed: 02/05/19 10:33> Discharge Date and Diagnosis Date of Admission: 02/02/19 Date of Discharge: 02/05/19 - Primary Discharge Diagnosis Active and Suspected Problems 1. Acute alcohol withdrawal, chronic alcohol dependence 2. Acute exacerbation of COPD 3. Acute kidney injury with associated hyperkalemia 4. Hyponatremia-secondary to #1 and hypovolemia. 5. Type 2 diabetes mellitus 6. Alcoholic cirrhosis status post liver transplant 7. Hypothyroidism 8. Depression/anxiety 9. Hypertension 10. Obesity 11. Tobacco dependence - Secondary Discharge Diagnosis Chronic Problems Non-healing non-surgical wound (Chronic) Depression (Chronic) HTN (hypertension) (Chronic) Diabetes mellitus (Chronic) Alcohol abuse following liver transplant (Chronic) Alcohol abuse (Chronic) Liver transplanted (Chronic) in 2006 at [facility]; on prograft 2g bid Hospital Course and Treatment Imaging Results: Diagnostic Data Brain CT 02/02/19 11:17 IMPRESSION: Chronic involutional changes of the brain. Electronically Signed: Alex Aguayo DO at 12:04 EDT Tel , Service support , Chest X-Ray 02/02/19 17:00 IMPRESSION: Normal x-ray examination of the chest. Electronically Signed: Claudio Parr MD at 17:14 EDT , Service support , Operations: None Procedures: None Summary of Care Provided: The patient is a 73 year old M admitted 02/02/2019 due to alcohol withdrawal. 1. Acute alcohol withdrawal, chronic alcohol dependence-completed Librium taper. Withdrawal symptoms significantly improved. He has mild residual tremors, CIWA 4 at discharge. Recommend outpatient follow-up for chronic alcohol dependence. 2. Acute exacerbation of COPD-shortness of breath and wheezing improved. DC IV Solu-Medrol. Continue oral prednisone x5 days. Wean oxygen to maintain O2 sat above 90%. Patient was not documented to be hypoxic. Patient placed on IV Rocephin on admission, discontinued. Chest x-ray without evidence of pneumonia. Afebrile, no leukocytosis. 3. Acute kidney injury with associated hyperkalemia-Kayexalate x1. Acute kidney injury and hyperkalemia resolved. Weekly BMP at [facility]. 4. Hyponatremia-secondary to #1 and hypovolemia. Resolved. 5. Type 2 diabetes mellitus-continue home insulin regimen. 6. Alcoholic cirrhosis status post liver transplant-continue home Prograf, regimen. Monitor for hyperkalemia on Bactrim regimen. Weekly BMP at [facility]. 7. Hypothyroidism-continue home Synthroid regimen. 8. Depression/anxiety-recommend psychiatric referral as outpatient. Continue home Paxil regimen. 9. Hypertension-stable, continue home amlodipine, lisinopril regimen. 10. Obesity- diet and lifestyle modifications encouraged. 11. Tobacco dependence-encouraged smoking cessation. General: Cooperative, - - Drowsy, no apparent distress HEENT: Atraumatic, PERRLA, EOMI, Normocephalic Neck: Supple, No JVD, Negative Carotid Bruits Lungs: Diminished, Wheezes Cardiovascular: Regular rate, No murmurs Abdomen: Bowel Sounds Present, Soft, Non Tender, Non-Distended, Obese Extremities: No clubbing, No cyanosis, No edema, Capillary Refill Less than 3 Seconds Skin: No rashes, No breakdown Musculoskeletal: No Tenderness to Palpation of Joints or Extremities Neurological: Cranial nerves II-XII grossly intact, Neuro grossly intact Psych/Mental Status: Normal Affect, Appropriate Patient seen and examined prior to discharge. Physical assessment as noted above. Patient is stable for discharge with follow up recommendations as noted above. This patient was seen by DAMIR Perez under the supervision of Dr. Garcia. - Physical Exam Vital Signs Temp Pulse Resp BP Pulse Ox 97.5 F L 92 18 151/84 H 94 02/05/19 08:30 02/05/19 08:30 02/05/19 08:30 02/05/19 08:30 02/05/19 08:30 Oxygen Flow Rate (L/min) 2 Oxygen Delivery Method Nasal Cannula Weight: 231 lb 3.215 oz Body Mass Index (BMI) 36.2 Finger Stick Blood Glucose 93 Intake and Output for Last 24 Hours 02/03/19 02/04/19 02/05/19 23:59 23:59 23:59 Intake Total 4139 / 4139 3744 / 3744 769 / 769 Output Total 1275 / 1275 Balance 2864 / 2864 3744 / 3744 769 / 769 Microbiology Past 72 Hours 02/03/19 07:50 Gram Stain - Final Sputum, Expectorated/Coughed Respiratory Culture - Final Mixed normal respiratory martinez. No Streptococcus pneumoniae, beta-hemolytic Streptococcus or Staphylococcus aureus isolated. 02/02/19 22:30 Streptococcus pneumoniae Antigen (M - Final Urine, Clean Catch 02/02/19 22:30 Legionella Antigen - Final Urine, Clean Catch Laboratory Tests Past 24 Hrs 02/05/19 05:30 Sodium 139 Potassium 4.7 Chloride 107 Carbon Dioxide 26.0 Anion Gap 6 BUN 34 H Creatinine 1.43 H Estim Creat Clear Calc 43.01 Est GFR (MDRD) Af Amer 62 Est GFR (MDRD) Non-Af 52 L BUN/Creatinine Ratio 23.8 H Glucose 204 H Calcium 8.7 POC Glucose 02/05/19 02/04/19 02/04/19 06:40 22:27 18:27 POC Glucose 210 H 380 H 460 H* 02/04/19 02/04/19 16:55 11:00 POC Glucose 430 H 352 H Home Medications: Medications to take at Discharge Amlodipine [Norvasc] 5 mg PO DAILY 11/19/13 Levothyroxine [Synthroid] 75 mcg PO DAILY 11/19/13 Lisinopril [Zestril] 40 mg PO DAILY 11/19/13 Smz/Tmp Ds [Bactrim Ds] 1 tablet PO MOWEFR 11/19/13 Folic Acid 1 mg PO DAILY 06/09/16 Insulin Aspart [Novolog Flexpen] 20 units SC BID PRN PRN 06/09/16 Menthol/Lanolin/Calamine/Znox [Calmoseptine Ointment] 1 applic TOPICAL DAILY 06/09/16 Tacrolimus Anhydrous [Prograf] 2 mg PO BID 06/09/16 Insulin Glargine,Hum.rec.anlog [Basaglar Kwikpen U-100] 30 unit SQ BID 09/07/17 Pantoprazole Sodium [Protonix] 40 mg PO DAILY 09/07/17 Albuterol Aerosols [Ventolin Aerosols] 2.5 mg INHALATION Q4HWA.RT 02/02/19 Aspirin 325 mg PO DAILY 02/02/19 Magnesium Oxide [Magnesium] 500 mg PO BID 02/02/19 Paroxetine [Paxil] 20 mg PO DAILY 02/02/19 predniSONE tablet 20 mg PO BIDCM tab 02/05/19 Primary Care Physician: Wilver Garcias MD [Primary Care Provider] - 3-5 Days Please follow up with your Primary Care Physician in: 1 Week Patient Instructions: Diabetic Insulin Reaction Disposition: Detention facility Minutes spent on discharge:: 35 Patient Condition:: Stable Medical Necessity - Tobacco Use Smoking Status: Current every day smoker Tobacco Use: Cigarettes Meaningful Use Info Meaningful Use Diagnoses (Choose all that apply): None applicable <Kvng Garcia - Last Filed: 02/05/19 10:48> Discharge Date and Diagnosis - Secondary Discharge Diagnosis Chronic Problems Non-healing non-surgical wound (Chronic) Depression (Chronic) HTN (hypertension) (Chronic) Diabetes mellitus (Chronic) Alcohol abuse following liver transplant (Chronic) Alcohol abuse (Chronic) Liver transplanted (Chronic) in 2006 at [facility]; on prograft 2g bid Hospital Course and Treatment Summary of Care Provided: This patient was seen in conjunction with DAMIR Perez . I have independently interviewed and examined the patient and reviewed pertinent historical, laboratory, and other data. Please refer to CORA PerezC note for details of this patient's presentation, findings, and recommendations. I have reviewed DAMIR Perez note and concur with documented findings. In brief, patient is a 73-year-old gentleman with multiple comorbidities who presented with acute alcohol withdrawal Assessment: 1. Acute alcohol withdrawal 2. COPD with acute exacerbation 3. Acute kidney injury 4. Hyponatremia 5. Essential hypertension 6. Diabetes mellitus type 2 7. Status post liver transplant on immunosuppressant agents 8. Hyperkalemia on Bactrim held 9. Depression with anxiety 10. Obesity with BMI of 36.2 11. Tobacco dependence 11. DVT prophylaxis SC heparin Hospital course: As documented by Vaishali Winkler NP?C - Physical Exam Vital Signs Temp Pulse Resp BP Pulse Ox 97.5 F L 92 18 151/84 H 94 02/05/19 08:30 02/05/19 08:30 02/05/19 08:30 02/05/19 08:30 02/05/19 08:30 Oxygen Flow Rate (L/min) 2 Oxygen Delivery Method Nasal Cannula Weight: 104.871 kg Body Mass Index (BMI) 36.2 Finger Stick Blood Glucose 93 Intake and Output for Last 24 Hours 08/02/04/19 02/05/19 23:59 23:59 23:59 Intake Total 4139 / 4139 3744 / 3744 769 / 769 Output Total 1275 / 1275 Balance 2864 / 2864 3744 / 3744 769 / 769 Microbiology Past 72 Hours 02/03/19 07:50 Gram Stain - Final Sputum, Expectorated/Coughed Respiratory Culture - Final Mixed normal respiratory martinez. No Streptococcus pneumoniae, beta-hemolytic Streptococcus or Staphylococcus aureus isolated. 02/02/19 22:30 Streptococcus pneumoniae Antigen (M - Final Urine, Clean Catch 02/02/19 22:30 Legionella Antigen - Final Urine, Clean Catch Laboratory Tests Past 24 Hrs 02/05/19 05:30 Sodium 139 Potassium 4.7 Chloride 107 Carbon Dioxide 26.0 Anion Gap 6 BUN 34 H Creatinine 1.43 H Estim Creat Clear Calc 43.01 Est GFR (MDRD) Af Amer 62 Est GFR (MDRD) Non-Af 52 L BUN/Creatinine Ratio 23.8 H Glucose 204 H Calcium 8.7 POC Glucose 02/05/19 02/04/19 02/04/19 06:40 22:27 18:27 POC Glucose 210 H 380 H 460 H* 02/04/19 02/04/19 16:55 11:00 POC Glucose 430 H 352 H Code Visit Inpatient E&M: 87261 Disch Hosp
[2019-02-05] MEDS: chlordiazePOXIDE 25 MG Capsule PO (10:46)
[2019-02-05 12:10] LABS: Bedside Glucose 318 mg/dL (70-110)
== END 2019-02-05 12:25 | disposition skilled nursing facility (03) | DRG 897 ==
LOC: ED 15:38 → PCU 17:01
PROVIDERS: Nurse Practitioner Family; Admitting Provider Family Medicine; Emergency Provider Emergency Medicine; Family Provider Internal Medicine; PCP Internal Medicine; Referring Provider Family Medicine; Visit Provider Internal Medicine
DX: F10.239 Alcohol dependence with withdrawal, unspecified (principal); J44.1 Chronic obstructive pulmonary disease with (acute) exacerbation; N17.9 Acute kidney failure, unspecified; E87.1 Hypo-osmolality and hyponatremia; Z94.4 Liver transplant status; E87.5 Hyperkalemia; E86.1 Hypovolemia; K70.30 Alcoholic cirrhosis of liver without ascites; E03.9 Hypothyroidism, unspecified; I10 Essential (primary) hypertension; F32.9 Major depressive disorder, single episode, unspecified; F41.9 Anxiety disorder, unspecified; E66.9 Obesity, unspecified; Z79.4 Long term (current) use of insulin; Z79.899 Other long term (current) drug therapy; E78.5 Hyperlipidemia, unspecified; R06.03 Acute respiratory distress; E86.0 Dehydration; Z79.51 Long term (current) use of inhaled steroids; F17.210 Nicotine dependence, cigarettes, uncomplicated; Z68.37 Body mass index [BMI] 37.0-37.9, adult; E11.649 Type 2 diabetes mellitus with hypoglycemia without coma
CPT/HCPCS: 36415; 70450; 71045; 80048; 80053; 80076; 80307; 80320; 82962; 83735; 84100; 84132; 85025; 87070; 87205; 87449; 92526; 92610; 93005; 94640; 97110; 97162; 97166; 99285; 99406; J7030; A4216; G0480

== ENCOUNTER → 2019-03-25 | Outpatient (CLI) | payer MEDICARE, OTHER, SELFPAY ==
[2019-02-02 17:21] VITALS: BMI 36.2
--- NOTE | 2019-03-25 11:30 | MRI_ITS ---
HISTORY:STENOSIS, in-ability to ambulate, FINGER NUMBNESS STENOSIS, in-ability to ambulate, FINGER NUMBNESS TECHNIQUE: Sagittal T1 and T2 and STIR and axial T1 and T2-weighted images also T1 FLAIR sagittal images IV Contrast dosage and agent: COMPARISON: None FINDINGS: # of images incl. paperwork: 270 Study is limited by motion VERTEBRAE: Normal vertebral bodies and posterior elements. VERTEBRAL ALIGNMENT: Normal, including the craniocervical junction and cervicothoracic junction. No spondylolisthesis. Straightening of the normal cervical or doses CORD: Unremarkable in signal and morphology. NECK SOFT TISSUES: No prevertebral soft tissue swelling. There is no cervical adenopathy. C2/C3: Disc desiccation. No significant disc contour abnormality or canal stenosis. No significant neuroforaminal narrowing C3/C4: Diffuse annular bulge asymmetric to the left. This does efface the thecal sac. The canal is narrowed to proximally 9 mm. Mild bilateral neuroforaminal narrowing C4/C5: Diffuse annular bulge effacing the ventral thecal sac. The canals at the lower limits of normal. Mild to moderate bilateral neuroforaminal narrowing C5/C6: Decreased disc height and hydration. There is an osteophyte disc complex effacing the ventral thecal sac. This does abut the spinal cord. The canal measures approximately 9.3 mm at this level. There is mild to moderate right and moderate left neuroforaminal narrowing C6/C7: Osteophyte disc complex asymmetric to the left. The canal is at the lower limits of normal. Moderate bilateral neural foraminal narrowing C7-T1: Central disc protrusion effacing the ventral thecal sac. No canal stenosis. Mild bilateral neural foraminal narrowing MRI/Spine Cervical (Routine) IMPRESSION: Osteophyte disc complexes are seen within the cervical spine at the level of C5-6 and C6-7. At the level of C5-6 the canal measures 9.3 mm and at C6-7 the canals at the lower limits of normal C7-T1 central disc protrusion but no canal stenosis C3-4 diffuse and no bulge asymmetric to the left with the canal measuring 9 mm Multilevel neural foraminal narrowing as discussed The study is limited by patient motion at 0147 Reported and signed by: Awa Ding DO Electronically Signed: Awa Ding DO at 1:46 EDT Tel , Service support ,
--- NOTE | 2019-03-28 13:17 | EEG ---
- Electroencephalogram Date of service 03/25/2019 History EEG is being done in this 73 yr M to rule out seizures EEG Description: This is an 18 channel EEG with 10-20 lead placement system. Bipolar montages, and Referential montages were reviewed. Photic stimulation and Hyperventilation were performed. The posterior dominant rhythm is 9 HZ synchronous, symmetric, reacting to eye opening and closing. Photo stimulation elicited normal driving response but no abnormal photoparoxysmal response, Hyperventilation did not elicit any abnormal photoparoxysmal response. Sleep was identified. There is no abnormal background slowing noted. There was no epileptiform discharges or electrographic seizures noted during this recording. EKG artefact noted during the record. EEG Interpretation This is a normal awake and asleep EEG. There is no epileptiform discharges or electrographic seizures noted during the record.
== END | disposition home or self-care (01) ==
LOC: PSN 09:01
PROVIDERS: Family Provider Internal Medicine; PCP Internal Medicine; Referring Provider Psychiatry & Neurology Neurology; Visit Provider Psychiatry & Neurology Neurology
DX: M48.02 Spinal stenosis, cervical region (principal)
CPT/HCPCS: 72141; 95819

== ENCOUNTER → 2019-05-03 | Outpatient (CLI) | payer MEDICARE, OTHER, SELFPAY ==
[2019-02-02 17:21] VITALS: BMI 36.2
[2019-05-03 11:38] LABS: Magnesium 1.3 mg/dL (1.6-2.6)
[2019-05-03 11:45] LABS: Protein, Urine (Random) 44.6 mg/dL (<11.9); Protein:Creat Ratio 398 mg/g CRE (0-200)
[2019-05-03 12:01] LABS: PTHIN 104.9 pg/mL (18.4-80.1)
[2019-05-05 14:08] LABS: Albumin, Ur 72.8 % (.); Alpha-1-Globulin, Ur 5.1 % (.); Alpha-2-Globulins, Ur 6.2 % (.); Beta Globulin, Ur 9.6 % (.); Gamma Globulin, Ur 6.4 % (.); M-Spike, Ur % Not Observed % (Not Observed)
== END | disposition home or self-care (01) ==
LOC: POLAB3 10:31
PROVIDERS: Family Provider Internal Medicine; PCP Internal Medicine; Visit Provider Internal Medicine Nephrology
DX: E11.22 Type 2 diabetes mellitus with diabetic chronic kidney disease (principal); N18.3 Chronic kidney disease, stage 3 (moderate); R80.9 Proteinuria, unspecified
CPT/HCPCS: 36415; 82570; 83735; 83970; 84156; 84166; 86335

== ENCOUNTER 2019-07-07 15:19 | Emergency (ER) | payer MEDICARE, OTHER, SELFPAY ==
[2019-02-02 17:21] VITALS: BMI 36.2
[2019-07-07] VITALS (19 sets, daily range): BP systolic 106–142; BP diastolic 69–118; PULSE 66–99; RESP 14–25; TEMP 35.4–35.6; O2SAT 77–99; BMI 41.8
--- NOTE | 2019-07-07 15:31 | EKG12_ITS ---
Test Reason : Blood Pressure : / mmHG Vent. Rate : 080 BPM Atrial Rate : 080 BPM P-R Int : 226 ms QRS Dur : 156 ms QT Int : 476 ms P-R-T Axes : 038 043 025 degrees QTc Int : 548 ms Sinus rhythm with 1st degree A-V block with Premature atrial complexes with Aberrant conduction Right bundle branch block Abnormal ECG Confirmed by DARINEL AMBRIZ, OLLIE ([id number]), clinical editor TOMMY WU ([id number]) on 07/11/2019 12:17:07 PM Referred By: Wilver Garcias Confirmed By:OLLIE TENA MD
[2019-07-07 15:48] LABS: Absolute Lymphocyte Count 0.57 X10^3/uL (0.83-4.51); Absolute Neutrophil Count 10.9 X10^3/uL (2.0-7.7); Basophil# 0.04 X10^3/uL; Basophil% 0.3 % (0-1); Hematocrit 39.2 % (40-54); Lymphocyte # 0.57 X10^3/ul (4.0); Lymphocyte % 4.6 % (19-41); Mean Corp Hgb Conc 33.2 g/dL (32-36); Mean Corpuscular Hgb 32.1 pg (27.0-32.0); Mean Corpuscular Volume 96.8 fL (80-94); Mean Platelet Vol. 10.8 fl (6.2-12.0); Monocyte# 0.67 X10^3/uL; Monocyte% 5.4 % (0-10); NRBC Flagged by Analyzer 0.2 % (0-5); Neutrophil # 10.87 X10^3/uL (2.7-7.7); Neutrophil % 88.1 % (47-70); POSITIVE DIFFERENTIAL YES; Platelet Count 262 K/mm3 (150-450); RBC Distribution Width CV 13.3 % (11.6-14.6); RBC Distribution Width SD 47.8 fl (35.1-43.9); Red Blood Count 4.05 M/mm3 (4.6-6.2); White Blood Count 12.4 K/mm3 (4.4-11.0)
[2019-07-07 15:53] LABS: Differential Indicated SCAN CRITERIA MET
[2019-07-07] MEDS: Etomidate 20 MG/10 ML Vial IV (16:00)
[2019-07-07] MEDS: Succinylcholine Chloride 200 MG/10 ML Vial 150 MG IV (16:00)
[2019-07-07 16:02] LABS: International Normalized Ratio 1.2; Prothrombin Time (Protime)PT. 14.6 SECONDS (11.7-14.9)
[2019-07-07 16:03] LABS: Partial Thromboplast Time 34.8 Seconds (24.1-36.2)
[2019-07-07 16:04] LABS: ALB/GLOB Ratio 0.7 RATIO (0.9-2.4); AST(SGOT) 22 U/L (15-37); Alanine Aminotransfer ALT/SGPT 31 U/L (16-61); Albumin, Serum 3.1 g/dL (3.2-5.0); Alkaline Phosphatase 150 U/L (45-117); Anion Gap 6 (5-15); BUN 52 mg/dL (7-18); BUN/Creat Ratio 19.3 RATIO (10-20); Calcium,Total 8.6 mg/dL (8.5-10.1); Chloride 98 mmol/L (98-107); EST Glomerular Filtration Rate 25 mL/min (>60); Est Glom Filt Rate - Afr Amer 30 mL/min (>60); Estimated Creatinine Clearance 22.78 ml/min; Globulin 4.4 g/dL (2.2-4.2); Glucose 207 mg/dL (74-106); Potassium 3.8 mmol/L (3.5-5.1); Protein, Total 7.5 g/dL (6.4-8.2); Sodium Level 133 mmol/L (136-145)
--- NOTE | 2019-07-07 16:05 | RAD_ITS ---
STUDY: X-RAY CHEST REASON FOR EXAM: Male, 73 years old. ETT PLACEMENT TECHNIQUE: Single AP portable view of the chest. COMPARISON: 02/02/2019 FINDINGS: EKG leads overlie the chest. ET tube tip is 4 cm above the guy, NG tube tip not seen but is below the diaphragm. The lungs are expanded with superimposed interstitial edema. No organized infiltrate or effusion. There is no demonstrated pleural abnormality. There is cardiomegaly. Normal mediastinum and shaji. Normal visualized pulmonary arteries. Normal visualized aortic arch and descending thoracic aorta. There are diffuse degenerative changes of the visualized thoracic spine. Normal visualized ribs, clavicles, and shoulders. There is no demonstrated abnormality of the visualized soft tissue structures of the upper abdomen. RAD/Chest 1 View (Portable) IMPRESSION: Support lines and tubes as described, tip of the ET tube is 4 cm above the guy Interstitial edema, follow-up recommended to assure resolution Electronically Signed: Michael Mims MD at 16:48 EST , Service support ,
--- NOTE | 2019-07-07 16:12 | RAD_ITS ---
STUDY: X-RAY - ABDOMEN/PELVIS REASON FOR EXAM: Male, 73 years old. OG TUBE PLACEMENT TECHNIQUE: Single AP view of the abdomen / pelvis. COMPARISON: None. FINDINGS: Normal visualized lung bases. NG tube is in place, tip is in the proximal stomach There is an unremarkable bowel gas pattern. There is no demonstrated free abdominal air. The visualized liver, spleen and kidneys are grossly normal in size and morphology. Normal soft tissue structures. Normal visualized osseous structures. RAD/Abdomen Single View (Portable) IMPRESSION: Normal x-ray examination of the abdomen and pelvis. Electronically Signed: Michael Mims MD at 16:46 EST , Service support ,
[2019-07-07] MEDS: Propofol 10MG/Ml 1,000 MG/100 ML Bottle 7.3 MG CONT INF (16:23)
[2019-07-07] MEDS: fentaNYL 100 MCG/2 ML Ampul IV (16:23)
[2019-07-07 16:28] LABS: Bacteria 0 SEEN /hpf (None Seen); Mucous, Urine 0 SEEN /hpf (<or=2+); Red Blood Cells-Urine 0 SEEN /hpf (0-5); Squamous Epithelial Cells - UA 0 SEEN /hpf (0-5); White Blood Cells 0 SEEN /hpf (0-5)
[2019-07-07 16:31] LABS: Color, Urine Yellow (Yellow); Glucose, Dipstick 50 mg/dl (Normal); Ketone-Dipstick Negative (Negative); Leukocyte Esterase-Dipstick Negative /ul (Negative); Nitrite-Dipstick Negative (Negative); Occult Blood-Urine Negative /ul (Negative); Protein-Dipstick 500 mg/dl (Negative); Specific Gravity, Urine 1.025 (1.002-1.030); Urine Bilirubin Dipstick Negative (Negative); Urine Clarity Cloudy (Clear); Urine Urobilinogen Normal (Normal)
[2019-07-07 16:39] LABS: BNP,B-Type NATRIURETIC PEPTIDE 549.9 pg/mL (0-100)
[2019-07-07 16:42] LABS: Lactic Acid 1.6 mmol/L (0.4-1.9)
[2019-07-07 16:49] LABS: Fine Granular Cast- Urine 0-5 SEEN /lpf (0-5); Hyaline Cast 5-10 SEEN /lpf (0-5)
[2019-07-07 16:52] LABS: Transitional Epithelial - Ur 0-5 SEEN /hpf (0-5)
--- NOTE | 2019-07-07 16:53 | ED.RN ---
BELONGINGS INCLUDE ASSORTED MEDICATIONS CONTAINED INSIDE PLASTIC BOX
[2019-07-07 16:56] LABS: Amorphous Sediment 1+
[2019-07-07 17:06] LABS: Allen Test POS; Base Excess 3 mmol/L (-2 to +2); Bicarbonate 32.2 mmol/L (22-26); Blood Gas Specimen Type ART; FI02 100; Mode A-C; O2 Delivery Device Vent; PEEP 5; PO2 156 mmHG (75-100); RR 14; SITE L Radial; SO2 98 % (95-99); Time Given 1640; Total Carbon Dioxide 35 mmol/L; Vt 450; pCO2 101.2 mmHg (35-45); pH 7.11 (7.35-7.45)
--- NOTE | 2019-07-07 17:07 | RAD_ITS ---
STUDY: X-RAY - ABDOMEN/PELVIS REASON FOR EXAM: Male, 73 years old. OG TUBE PLACEMENT #2 TECHNIQUE: 1 view of the left upper abdomen COMPARISON: None. FINDINGS: Markedly limited radiograph of the left abdomen. Enteric tube is seen with its tip in the proximal stomach. Side-port is in the region of the gastroesophageal junction. Visualized lungs demonstrate patchy appearing opacities. Upper abdomen demonstrates postsurgical change. RAD/Abdomen Single View (Portable) IMPRESSION: Enteric tube is seen with its tip in the proximal stomach. Side-port is in the region of the gastroesophageal junction. Electronically Signed: Archie Holt, at 17:54 EST Tel , Service support ,
[2019-07-07] MEDS: levoFLOXacin IV 750 MG/150 ML BAG 100 MG IV (17:11)
--- NOTE | 2019-07-07 17:12 | CPS ---
Critical values on ABG gave to at [id number]
--- NOTE | 2019-07-07 18:14 | ED.DCSUM_ITS ---
- ER Visit Summary Date of Service: 07/07/19 Chief Complaint: Shortness of breath History of Present Illness: The patient is a 73 M with shortness of breath since yesterday. Symptoms are severe. He has a history of COPD but is not on home oxygen. He also has a history of bad kidneys, diabetes, hypertension, depression, liver transplant, and alcohol abuse. He continues to drink and was drinking yesterday. He had 1/5 of vodka. He has a history of alcohol withdrawal and seizures. History is limited secondary to respiratory distress. Physical Examination: Hypoxic, afebrile, otherwise vitals unremarkable. Head and neck atraumatic. Patient is somnolent but arouses to voice. Abdomen is distended and firm. No guarding or rebound. No tenderness. Lungs are diminished in all ochoa. Heart regular. Lower extremities show symmetric edema, nontender. Test Results: EKG shows sinus rhythm at a rate of 80 with PACs and right bundle branch block pattern. Chest x-ray shows bilateral congestion, endotracheal tube in place, abdominal x-ray shows OG tube in the proximal stomach. White count 12.4. Sodium 133, glucose 207, BUN 52, creatinine 2.7. Alkaline phosphatase 150. Coags normal. Urinalysis unremarkable. Troponin normal. BNP 550. Lactate 1.6. pH 7.11, CO2 101, O2 156. Cultures pending. Emergency Department Course and Treatment: Patient was placed on BiPAP upon arrival. He quickly started to deteriorate and was less responsive. He became restless. Patient was intubated. He was medicated with etomidate and succinylcholine. He was intubated on one attempt by me. Good color change. Good chest rise. Quiet stomach. Bilateral breath sounds. Patient was sedated with propofol and fentanyl. Work-up as above. He remained stable on the vent. He was not in shock. He was covered with Levaquin for respiratory coverage. Patient will need ICU. We felt that he would be better served at a transplant facility given his immunosuppression and history. We also feel that he would be better served at a facility that has neurology coverage and EEG should he have a seizure. Patient was discussed with Dr. Carmen the [facility] and accepted. We are awaiting a bed for transfer. Treatment Plan: As above Disposition: Transfer Impression: 1. Respiratory failure 2. Liver transplant 3. Alcohol abuse 4. Leukocytosis This note was generated with [employer] dictation software. It may contain incorrect words, spelling, and punctuation that were not noted in review of the chart prior to signing ED Disposition - Plan for ED Patient: Referrals: Wilver Garcias MD [Primary Care Provider] -
[2019-07-07] MEDS: Propofol 10MG/Ml 1,000 MG/100 ML Bottle 21.8 MG CONT INF (20:22)
--- NOTE | 2019-07-07 20:57 | ED.RN ---
[facility] ARRIVED TO TRANSPORT PT. [facility] ALSO ARRIVED AND WILL BE TRANSPORTING BY GROUND. [facility] AT BEDSIDE AND STATES IS AWARE OF TRANSFER.
== END 2019-07-07 21:10 | disposition short-term general hospital (02) ==
PROVIDERS: Emergency Provider Emergency Medicine; PCP Internal Medicine; Referring Provider Internal Medicine
DX: J96.90 Respiratory failure, unspecified, unspecified whether with hypoxia or hypercapnia (principal); D72.829 Elevated white blood cell count, unspecified; F10.10 Alcohol abuse, uncomplicated; J44.9 Chronic obstructive pulmonary disease, unspecified; I10 Essential (primary) hypertension; F32.9 Major depressive disorder, single episode, unspecified; E11.9 Type 2 diabetes mellitus without complications; Z94.4 Liver transplant status; Z72.0 Tobacco use; Z79.4 Long term (current) use of insulin; Z79.51 Long term (current) use of inhaled steroids; Z79.899 Other long term (current) drug therapy
CPT/HCPCS: 31500; 31720; 36600; 51702; 71045; 74018; 80053; 80320; 81001; 82803; 83605; 83880; 84484; 85025; 85610; 85730; 87040; 87086; 93005; 94002; 96365; 96366; 96368; 96375; 99251; 99285; J7050; A4216; G0463; G0480; J0330

== ENCOUNTER 2020-08-30 10:46 | Observation (INO) | payer MEDICARE, OTHER, SELFPAY ==
[2019-07-07 15:20] VITALS: BMI 41.8
[2020-08-30] VITALS (22 sets, daily range): BP systolic 131–185; BP diastolic 87–114; PULSE 90–114; RESP 13–35; TEMP 36.3–37.1; O2SAT 90–99; BMI 43.7; BMI 41.1
--- NOTE | 2020-08-30 11:02 | EKG12_ITS ---
Test Reason : SOB/SHOULDER PAIN Blood Pressure : / mmHG Vent. Rate : 108 BPM Atrial Rate : 108 BPM P-R Int : 304 ms QRS Dur : 142 ms QT Int : 382 ms P-R-T Axes : 063 019 -04 degrees QTc Int : 511 ms Sinus tachycardia with 1st degree A-V block Right bundle branch block Abnormal ECG Confirmed by CEFERINO AMBRIZ, AMBROSE ([id number]), purchase request editor BEATRIZ MOREL ([id number]) on 09/03/2020 11:38:36 A M Referred By: JOVITA/DAYDAY Confirmed By:HARSHA DE LA VEGA MD
--- NOTE | 2020-08-30 11:10 | ED.DCSUM_ITS ---
History of Present Illness Chief Complaint: Shortness of Breath Informant: Patient Narrative: Patient is a 74-year-old male with a past medical history of liver transplant on Prograf, COPD, OLVIN noncompliant with his CPAP. He presents to the emergency department for 3 days of shortness of breath. He states that he has the shortness of breath when lying in bed. Typically this would resolve with positioning himself but now it is not. He states that he has been using his inhalers at home which has not been helping. No significant cough. No sputum production. Denies any fevers or chills. He states he had a coronavirus test yesterday which was negative. He denies any chest pain associated with this. He has some lower quadrant abdominal pain. Denies any significant leg swelling. No history of heart failure. No history of DVT/PE. Past Medical History - Allergies and Home Meds Allergies/Adverse Reactions: Allergies cortisone [Cortisone] Allergy (Verified 08/30/20 10:51) Angioedema Penicillins Allergy (Verified 08/30/20 10:51) Unknown Primary Care Physician: Wilver Garcias MD [Primary Care Provider] - Prior records reviewed: Yes Past Medical History: - - Per HPI Surgical History: - - Liver transplantation, parathyroidectomy Smoking Status: Former smoker - Family History Maternal Family History: Reports: No pertinent history Paternal Family History: Reports: No pertinent history Review of Systems All systems negative except as indicated General: Denies: Chills, Fever, Sweats Eyes: Denies: Visual changes - bilaterally, Diplopia ENT: Denies: Rhinorrhea, Sore throat Cardiovascular: Denies: Chest pain, Palpitations Respiratory: Reports: Dyspnea. Denies: Cough, Dyspnea on exertion Gastrointestinal: Reports: Abdominal pain. Denies: Nausea, Vomiting, Diarrhea, Melena, Hematochezia Genitourinary: Denies: Dysuria, Hematuria, Frequency Musculoskeletal: Denies: Back pain, Extremity Pain Skin: Denies: Rash, Wounds Neurological: Denies: Headache, Weakness, Numbness Physical Exam Vital Signs/Narrative: Vital Signs Temp Pulse Resp BP Pulse Ox 08/30/20 10:51 98.0 F 102 H 16 156/109 H 97 08/30/20 10:47 98.0 F 102 H 16 156/109 H 97 General: Obese, No Acute Distress, - - Patient does fall asleep a few times throughout questioning but is easily arousable. Head: Normocephalic, Atraumatic Eyes: Perrl, EOMI ENT: Moist mucous membranes, No rhinorrhea Neck: Supple, Nontender Cardiovascular: Regular rhythm, No murmurs, Tachycardia Respiratory: No distress, CTA bilaterally, Chest nontender Abdomen: Soft, Nontender, Normal bowel sounds Back: Nontender, Normal Inspection Extremities: Nontender, No edema. Negative for: Calf Tenderness Skin: Normal color, No rash Neurological: Alert, Oriented x3, Cranial nerves II-XII grossly intact, Normal Strength, Normal Sensation Psychological: Normal affect, Normal Mood Diagnostic/Tx/Re-eval Chest X-Ray - ED: 1 View - Single view portable x-ray interpreted by myself. No obvious consolidations. No effusions. He does have cardiomegaly. Agree with radiologist. - EKG Initial EKG Interpretation: - - Rate of 108 bpm and a sinus tachycardia. Has a prolonged VA interval of 304 with first-degree AV block. Prolonged QRS with right bundle branch block. QTC of 511. No significant ST elevations or depressions. Previous EKG for comparison was performed on 07/07/2019. - Medical Decision Making Patient presents to the emergency department for shortness of breath over the past 3 days. No other real symptoms associated with this. He was mildly hypoxic for EMS but has been satting well on room air throughout ED stay so far. He is mildly tachycardic. In no distress. He does fall asleep a few times through my questioning. Will check EKG, chest x-ray basic lab work. Patient was given a DuoNeb breathing treatment which he did say helped him a lot. He did frequently fall asleep still during examination. We did attempt to ambulate the patient on room air and he desatted to 87%. Given the fact he is falling asleep, not hypoxic he will require hospitalization. Not know exact etiology at this time. We are unable to do CTA given his poor kidney function at this time. His BNP is elevated but does not appear to be extremely volume overloaded. No increase in sputum production to make me concerned for COPD exacerbation. His troponin is within normal limits I do not feel this is CAD. He is mildly hypokalemic which is replaced. Will bring him into the hospital for further evaluation and management. He understands and is agreeable with this plan. ED Disposition - Plan for ED Patient: Disposition: Acute Care Hospital [facility] Diagnosis: Dyspnea, Hypoxia, Hypokalemia, [id number] kidney injury Referrals: Wilver Garcias MD [Primary Care Provider] -
[2020-08-30 11:45] LABS: Blood Gas Specimen Type VEN; VBG BASE EXCESS 7 mmol/L (-1.0-3.5); VBG Bicarbonate 32 mmol/L (22-26); VBG PO2 46 mmHg (25-40); VBG SO2 80 % (50-70); VBG TCO2 34 mmol/L (23-33); VBG pCO2 52.2 mmHg (41-51); VBG pH 7.39 (7.32-7.42)
--- NOTE | 2020-08-30 11:45 | RAD_ITS ---
STUDY: X-RAY CHEST REASON FOR EXAM: Male, 74 years old. SOB TECHNIQUE: Single AP portable view of the chest. COMPARISON: None. FINDINGS: The lungs are clear and expanded. There is no demonstrated pleural abnormality. There is moderate cardiac enlargement. Normal mediastinum and shaji. Normal visualized pulmonary arteries. Normal visualized aortic arch and descending thoracic aorta. Normal visualized thoracic spine. Normal visualized ribs, clavicles, and shoulders. There is no demonstrated abnormality of the visualized soft tissue structures of the upper abdomen. RAD/Chest 1 View (Portable) IMPRESSION: Moderate cardiomegaly. Electronically Signed: Jamison Fabian MD at 12:15 EST Tel , Service support ,
[2020-08-30 11:47] LABS: Absolute Lymphocyte Count 1.17 X10^3/uL (0.83-4.51); Absolute Neutrophil Count 8.8 X10^3/uL (2.0-7.7); Basophil# 0.05 X10^3/uL; Basophil% 0.4 % (0-1); Eosinophil# 0.36 X10^3/uL; Eosinophils% 3.1 % (0-5); Hematocrit 35.5 % (40-54); Hemoglobin 12.5 g/dL (13.0-16.5); Lymphocyte # 1.17 X10^3/ul (4.0); Lymphocyte % 10.1 % (19-41); Mean Corp Hgb Conc 35.2 g/dL (32-36); Mean Corpuscular Hgb 33.2 pg (27.0-32.0); Mean Corpuscular Volume 94.4 fL (80-94); Mean Platelet Vol. 10.5 fl (6.2-12.0); Monocyte% 9.5 % (0-10); NRBC Flagged by Analyzer 0 % (0-5); Neutrophil # 8.79 X10^3/uL (2.7-7.7); Neutrophil % 76.4 % (47-70); Platelet Count 205 K/mm3 (150-450); RBC Distribution Width CV 12.4 % (11.6-14.6); RBC Distribution Width SD 42.9 fl (35.1-43.9); Red Blood Count 3.76 M/mm3 (4.6-6.2); White Blood Count 11.5 K/mm3 (4.4-11.0)
[2020-08-30 12:01] LABS: BNP,B-Type NATRIURETIC PEPTIDE 402.2 pg/mL (0-100)
[2020-08-30 12:07] LABS: AST(SGOT) 22 U/L (15-37); Alanine Aminotransfer ALT/SGPT 20 U/L (16-61); Albumin, Serum 2.8 g/dL (3.2-5.0); Alkaline Phosphatase 98 U/L (45-117); Anion Gap 6 (5-15); BUN 28 mg/dL (7-18); BUN/Creat Ratio 10.9 RATIO (10-20); Bilirubin, Direct 0.12 mg/dL (0.00-0.30); Calcium,Total 8.7 mg/dL (8.5-10.1); Chloride 97 mmol/L (98-107); Creatinine, Serum 2.57 mg/dL (0.70-1.30); EST Glomerular Filtration Rate 26 mL/min (>60); Est Glom Filt Rate - Afr Amer 32 mL/min (>60); Estimated Creatinine Clearance 23.58 ml/min; Globulin 4.2 g/dL (2.2-4.2); Glucose 226 mg/dL (74-106); Potassium 2.9 mmol/L (3.5-5.1); Sodium Level 136 mmol/L (136-145)
[2020-08-30] MEDS: Ipratropium/Albuterol Sulfate 3 ML AMPUL.NEB INHALATION ×2 (13:50→23:57)
[2020-08-30] MEDS: Potassium Chloride Oral Tablet 20 MEQ 40 MEQ PO (14:35)
--- NOTE | 2020-08-30 15:52 | HP.PCM_ITS ---
Problem List (1) Encephalopathy Status: Acute (2) Hypoxia Status: Acute (3) Depression Status: Chronic Qualifiers: Depression Type: unspecified Qualified Code(s): F32.9 - Major depressive disorder, single episode, unspecified (4) HTN (hypertension) Status: Chronic Qualifiers: Hypertension type: essential hypertension Qualified Code(s): I10 - Essential (primary) hypertension (5) Diabetes mellitus Status: Chronic Qualifiers: Diabetes mellitus type: type 2 Diabetes mellitus usp insulin use: with usp use Diabetes mellitus complication status: with other specified complication Qualified Code(s): E11.69 - Type 2 diabetes mellitus with other specified complication; 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 The patient is a 74 y/o M w/ PMHx: Hx Liver Transplant on immunosuppressive therapy, Chronic COPD, OLVIN on CPAP q HS, Morbid Obesity, HTN, HLD, Diabetes mellitus type II, BPH, GERD, Anxiety and Depression who presents to the [facility] ED on 08/30/20 with history of ongoing intermittent dyspnea, worse with exertion as well as increased weakness, fatigue, malaise as well as confusion, frequently falling asleep at his facility and also noted by his ex- approximately 3 days prior to current presentation during attempted transition to a doctor's visit with facility noted and EMS noted hypoxia, 89% upon their initial evaluation promptig Thomas Freitas referral of patient to the ED. Per discussion with ex- and patient who was more alert during evaluation noted he is supposed to use a CPAP but has not been doing so. He does state that he is able to lay flat and sleeps on his side in bed. Patient does note occasional midsternal nonradiating chest discomfort described as a dull ache, rated 2-3 out of 10 in severity primarily when he is feeling dyspnea, no complaint currently. Work-up in the ED included T 98.7, heart rate 107, BP 161/87, respiratory rate 18, 93% on 2 L nasal cannula most recent vital signs T 97.3, heart rate 93, BP 131/93, respiratory rate 18, 99% on 2 L nasal cannula, seen with WC 11.5, hemoglobin 12.5, platelet 205 with left shift, VBG with PO2 46, HCO3 32, O2 sat 80% on 2L, CMP with potassium 2.9, chloride 97, carbon dioxide 33, BUN/creatinine 28/2.57, glucose 226, unremarkable hepatic profile, ammonia 26, troponin 0 0.016, BNP 402.2, rapid Covid antigen negative, chest x-ray with moderate cardiomegaly, EKG with sinus rhythm with right bundle branch block with first-degree AV block with no acute evidence of ischemia. In the ED patient administered potassium 40 mill equivalent p.o. x1 as well as DuoNeb x1. Patient did note following DuoNeb therapy he did feel some improvement with dyspnea complaint. Past Medical History Past Medical History (Chronic Problems): Chronic Problems [id number] kidney injury (Chronic) Non-healing non-surgical wound (Chronic) Depression (Chronic) HTN (hypertension) (Chronic) Diabetes mellitus (Chronic) Alcohol abuse following liver transplant (Chronic) Alcohol abuse (Chronic) Liver transplanted (Chronic) in 2006 at [facility]; on prograft 2g bid Allergies cortisone [Cortisone] Allergy (Verified 08/30/20 10:51) Angioedema Penicillins Allergy (Verified 08/30/20 10:51) Unknown Home Medications: Ambulatory Orders Medication Instructions Recorded Amlodipine [Norvasc] 5 mg PO DAILY 11/19/13 Levothyroxine [Synthroid] 75 mcg PO DAILY 11/19/13 Lisinopril [Zestril] 40 mg PO DAILY 11/19/13 Tacrolimus Anhydrous [Prograf] 2 mg PO BID 06/09/16 Insulin Glargine,Hum.rec.anlog 30 unit SQ DAILY@0800 09/07/17 [Basaglar Kwikpen U-100] Pantoprazole Sodium [Protonix] 40 mg PO DAILY 09/07/17 Albuterol Aerosols [Ventolin 2.5 mg INHALATION Q4HWA.RT 02/02/19 Aerosols] Paroxetine [Paxil] 20 mg PO DAILY 02/02/19 Allopurinol 100 mg PO DAILY 07/07/19 Bupropion HCl [Wellbutrin Sr] 150 mg PO BID 07/07/19 Chlorthalidone 25 mg PO DAILY 07/07/19 Gabapentin [Neurontin] 100 mg PO TIDCM 07/07/19 Glimepiride 2 mg PO DAILY 07/07/19 Insulin Glargine,Hum.rec.anlog 20 unit SQ QHS 07/07/19 [Audra Ramires U-100] Magnesium Oxide [Magnesium] 250 mg PO DAILY 07/07/19 Multivit-Minerals/FA/Lycopene [One 1 tab PO DAILY 07/07/19 Daily For Men Tablet] Sertraline HCl 100 mg PO DAILY 07/07/19 Tamsulosin HCl 0.4 mg PO BID 07/07/19 Surgical History: - - Liver transplantation, parathyroidectomy. Psychiatric History: Anxiety, Depression Lives: Skilled Nursing Smoking Status: Former smoker - Patient quit cigarette tobacco usage for approximately 1 year now since transition to skilled facility, prior to this 2 p ack/day since he been a teenager. Tobacco Use: Non-smoker Alcohol: Sober - Patient supposedly sober for approximately 1 year with heavy vodka usage prior. Drugs: None - *Family History Maternal History Items: - - Patient denies marked maternal family history including heart disease, diabetes, cancer. Paternal History Items: - - Patient with a paternal family history of heart disease with history of possible OK, lung cancer with tobacco usage history underlying. Review of Systems Constitutional: Reports: Anorexia, Malaise, Weakness, Fatigue. Denies: Chills, Fever, Weight Change HEENT: Denies: Head Aches, Sinus Congestion, Sinus Drainage Cardiovascular: Denies: Chest Pain, Palpitations Respiratory: Reports: Shortness of breath upon exertion, Wheezing. Denies: Cough, Shortness of Breath, Shortness of breath at rest, Sputum production Gastrointestinal: Denies: Abdominal Pain, Diarrhea, Nausea, Vomiting Genitourinary: Denies: Dysuria Musculoskeletal: Reports: Back Pain, Joint Pain. Denies: Joint Tenderness Skin: Denies: Rash, Wounds Neurological: Reports: Confusion. Denies: Focal weakness, Numbness, Tingling Psychiatric: Reports: Anxiety, Depression. Denies: Homicidal Ideations, Suicidal Ideations Hematologic/ Lymphatic: Reports: Anemia, Easy Bruising, Easy Bleeding VTE Information - Inpt Only VTE Present on Admission: No VTE Mechan Device Prophylaxis: SCD's VTE Pharm Prophylaxis ordered?: Yes Patient Problems: Active and Suspected Problems Dyspnea (Acute) Hypoxia (Acute) Hypokalemia (Acute) Subjective: Patient laying in the ED bed, fatigued, lethargic, able to awaken and have discussion however quickly falls asleep, no evidence of any significant respiratory distress. Objective: Physical Examination: General: Awakens to stimuli, not alert initially but improved but falling back asleep quickly, able to answer some orientation questions, remains cooperative, seated upright in the ED bed, intermittently extremely lethargic but no obvious evidence of any respiratory distress. Skin: normal color, turgor, no icterus, cyanosis set notable bilateral lower extremity stasis disease. HEENT: AT/NC, EOMI, PERRLA, mildly dry MM, no carotid bruits or JVD noted; however, habitus with thickened neck makes examination difficult. Lungs: Diminished breath sounds, greater bases, decreased effort, distant, occasional end expiratory wheeze, no obvious rales or rhonchi. Heart: Mildly tachycardic with regular rhythm; no gallop, rub audible. Abdomen: soft, overly obese, NTTP, ND, distant normal BS, unable to discern HSM secondary to habitus. Extremities: no cyanosis or clubbing, no severe bilateral lower extremity pitting edema, significant stasis disease bilateral lower extremities. Neurological: Awakens to stimuli, not alert initially but improved but falling back asleep quickly, able to answer some orientation questions, remains cooperative, seated upright in the ED bed, cognitive function not baseline intact; pupils equally reactive to light and accomodation; cranial nerves II-XII grossly normal, moving all 4 extremities, given notable intermittent lethargy strength severely globally decreased. Psychiatric: affect appears fatigued, sedate, no acute evidence of depressive or anxiety feelings. - Physical Exam Vitals/I&O's: Vital Signs Temp Pulse Resp BP Pulse Ox 97.3 F L 93 18 131/93 H 99 08/30/20 15:00 08/30/20 15:00 08/30/20 15:00 08/30/20 15:00 08/30/20 15:00 Oxygen Flow Rate (L/min) 2 Oxygen Delivery Method Nasal Cannula Weight: 278 lb 14.156 oz Body Mass Index (BMI) 43.7 Finger Stick Blood Glucose 93 Microbiology Past 72 Hours 08/30/20 11:28 Mucosa - Nose SARS-CoV-2 Antigen (Rapid) - Final Laboratory Results 08/30/20 11:33: WBC 11.5 H, RBC 3.76 L, Hgb 12.5 L, Hct 35.5 L, MCV 94.4 H, MCH 33.2 H, MCHC 35.2, RDW Std Deviation 42.9, RDW Coeff of Kecia 12.4, Plt Count 205, MPV 10.5, Immature Gran % (Auto) 0.500, Neut % (Auto) 76.4 H, Lymph % (Auto) 10.1 L, [place] % (Auto) 9.5, Eos % (Auto) 3.1, Baso % (Auto) 0.4, Absolute Neuts (auto) 8.8 H, Absolute Lymphs (auto) 1.17, Nucleated RBC % 0 08/30/20 11:33: Sodium 136, Potassium 2.9 L, Chloride 97 L, Carbon Dioxide 33.0 H, Anion Gap 6, BUN 28 H, Creatinine 2.57 H, Estim Creat Clear Calc 23.58, Est GFR (MDRD) Af Amer 32 L, Est GFR (MDRD) Non-Af 26 L, BUN/Creatinine Ratio 10.9, Glucose 226 H, Calcium 8.7, Total Bilirubin 0.40, Direct Bilirubin 0.12, AST 22, ALT 20, Alkaline Phosphatase 98, Troponin I 0.016, Total Protein 7.0, Albumin 2.8 L, Globulin 4.2 08/30/20 11:33: B-Natriuretic Peptide 402.2 H 08/30/20 11:33: Ammonia 26.0 08/30/20 11:38: Specimen Type JOSÉ MIGUEL, VBG pH 7.39, VBG pO2 46 H, VBG HCO3 32 H, VBG Total CO2 34 H, VBG O2 Sat (Calc) 80 H, VBG Base Excess 7 H, POC Mix VBG pCO2 Pt Tmp 52.2 H, Liter Flow 2.0, Clinical Comments Assessment/Plan All Active Problems Dyspnea (Acute) Hypoxia (Acute) Hypokalemia (Acute) Encephalopathy (Acute) COPD exacerbation (Acute) Alcohol withdrawal (Acute) Abdominal pain (Acute) Infected ulcer of skin (Acute) Nausea & vomiting (Acute) The patient is a 74 y/o M w/ PMHx: Hx Liver Transplant on immunosuppressive therapy, Chronic COPD, OLVIN on CPAP q HS, Morbid Obesity, HTN, HLD, Diabetes mellitus type II, BPH, GERD, Anxiety and Depression who presents to the [facility] ED on 08/30/20 with history of ongoing intermittent dyspnea, worse with exertion as well as increased weakness, fatigue, malaise as well as confusion, frequently falling asleep at his facility with hypoxia. 1. Dyspnea, exertional with Chest Pain, worsening with increased fatigue, malaise and lethargy, encephalopathy, unclear etiologies, Possible COPD Exacerbation: EKG in ED with sinus rhythm with right bundle branch block with no acute evidence of ischemia with first-degree AVB, CXR w/ cardiomegaly with no acute cardiopulmonary findings, initial trop 0.016. Will admit to PCU be cautious given unclear specific etiology, place on a monitored bed to assure no acute myocardial infarction with serial cardiac enzymes and EKGs, request echocardiogram although BNP 402.2, will dose with Lasix 40 mg IV x1 especially given renal function with chronic underlying disease pending further work-up, very diminished breath sounds upon examination with occasional expiratory wheezing therefore will request pharmacy involvement as noted allergy to cortisone but if able will initiate Solu-Medrol, request sputum culture if able to obtain, initiate ATC DuoNebs therapy and as needed albuterol regimen, calcitonin requested, respiratory viral panel requested, urine drug screen and alcohol level also requested given history, will place also upon admission on BiPAP as possibly contributing given underlying OLVIN history coupled with chronic COPD. We will continue to monitor and evaluate results with alteration of care pending these is unclear specific etiology for his current presentation. Given patient presentation history may also necessitate stress testing however given significant encephalopathy and intermittent lethargy will hold on ordering now. ASA, NG, morphine. 2. CKD stage III/IV, worsening progressively: Admission BUN/Cr 28/2.57, prior baseline creatinine noted to be 2.70 on 07/07/19. 3. Hypokalemia: Admission K+ 2.9, magnesium level requested, supplementation given, repeat level in AM. 4. Chronic COPD w/ ? exacerbation as noted above: Will maintain on oxygen with wean as tolerated to room air, attempting usage solumedrol, continue ATC duonebs, PRN albuterol, HOB, IS parameters. 5. Chronic anemia, macrocytic: Admission hemoglobin 12.5, MCV 94.4, prior hemoglobin appears 07/07/2012, continue to trend CBC. 6. Morbid Obesity: Weight loss and lifestyle changes encouraged, nutrition consulted. 7. Diabetes mellitus type II: Hold oral home regimen, continue home insulin regimen, ADA diet, accu checks w/ ISS. 8. History of liver transplant: Patient on immunosuppressive therapy, will continue Prograf however given presentation will request level concurrently. 9. OLVIN: Non-complaint with CPAP, willing to trial BiPAP which will be initiated as some concern retention could be contributing although labs not suggestive. 10. Anxiety and depression: We will continue patient bupropion regimen, awaiting clarification if either on Paxil or sertraline is both listed, add once clarified. 11. Former alcohol abuse: UDS and alcohol level requested, has supposedly been sober for 1 year but given behavior in discussions with ex- will obtain. 12. BPH: We will continue patient Flomax regimen. 13. DVT Prophylaxis: SCDs, heparin. 14. CODE status: Patient HCPBETINA is his ex- who is present and living will is currently in place. Discussed CODE status at length including difference between FULL code, DNR-CCA and DNR-CC status. Following discussions about the differences in these status, requested DNR-CCA, no intubation status. Advanced Care Planning Face to Face Time: 16 minutes. OBSV E&M: 17774 Initial observation care L3 Procedures: 58423 Advncd Care Plan 30 Min
--- NOTE | 2020-08-30 16:47 | ED.RN ---
ATTEMPTED TO CALL YAMILEX PAIZ AT [phone] WITH NO RESPONSE. WILL TRY AGAIN LATER.
--- NOTE | 2020-08-30 18:42 | ECHOD_ITS ---
Reason For Study: DYSPNEA Procedure This was a 2D Doppler, Color Flow transthoracic echocardiogram. The study was technically difficult. Pt sitting upright for echo due to SOB. Exam performed portable in patient room. Left Ventricle Normal LV size. The estimated ejection fraction is 65-70 %. Diastolic function is indeterminate. No regional wall motion abnormalities noted. Right Ventricle Normal RV size. Normal systolic function. Atria Normal left atrium. Normal right atrium. No doppler evidence for ASD. Mitral Valve There is no mitral valve stenosis. Trivial mitral valve insufficiency. Tricuspid Valve There is no tricuspid stenosis. Trivial tricuspid valve insufficiency. Pulmonary artery systolic pressure is 50 mmHg. Aortic Valve Aortic sclerosis, no stenosis. There is no aortic stenosis. No aortic valve insufficiency. Pulmonic Valve There is no pulmonic valvular stenosis. No pulmonic valve insufficiency. Great Vessels Normal aortic root. Pericardium/Pleural No pericardial effusion. Medication Diluted definity 4.0ml given slow IV push to enhance endocardial definition. MMode/2D Measurements & Calculations LVIDd: 4.7 cm IVSd: 1.1 cm Ao root diam: 3.7 cm LVIDs: 2.6 cm LVPWd: 1.1 cm RVDd: 4.5 cm FS: 44.2 % LAV(MOD-bp): 98.9 ml LA A4 area: 25.3 cm2 LA dimension(2D): 3.8 cm LAV(MOD-bp) Indexed: 43.8 ml/m2 LAV(MOD-sp2): 123.2 ml LAV(MOD-sp4): 80.9 ml RA A4 area: 16.4 cm2 Time Measurements MV dec time: 0.22 sec Doppler Measurements & Calculations MV E max nick: 116.6 cm/sec Lat Peak E' Nick: 8.6 cm/sec Med Peak E' Nick: 8.1 cm/sec MV A max nick: 135.1 cm/sec E/E' lat: 13.5 E/E' med: 14.4 MV E/A: 0.86 Ao V2 max: 195.0 cm/sec LV V1 max: 123.4 cm/sec PA V2 max: 116.6 cm/sec Ao max P.2 mmHg LV V1 max P.1 mmHg TR max nick: 329.3 cm/sec TR max P.4 mmHg Interpretation Summary The estimated ejection fraction is 65-70 %. Diastolic function is indeterminate. Trivial mitral valve insufficiency. The study was technically difficult. Contrast injection was performed. Ordering Physician: Mignon Dawkins Referring Physician: Wilver Garcias M.D. Performed By: Darlin Pimentel, JENNIFER, RVT
[2020-08-30 20:18] LABS: Alcohol, Blood (Medical)-Serum < 3.0 mg/dL
[2020-08-30 20:28] LABS: Procalcitonin 0.14 ng/mL (0.00-0.09)
[2020-08-30 20:29] LABS: Magnesium 2.2 mg/dL (1.6-2.6); Thyroid Stim Hormone (TSH) 0.56 uIU/mL (0.358-3.74)
[2020-08-30] MEDS: Furosemide 40 MG/4 ML Vial IV (20:44)
[2020-08-30] MEDS: buPROPion (SR) 150 MG Tablet.SA PO (20:44)
[2020-08-30] MEDS: Tacrolimus Anhydrous 1 MG Capsule 2 MG PO (20:45)
[2020-08-30] MEDS: Glucerna Shake 120 ML LIQUID PO (21:07)
[2020-08-30] MEDS: Heparin Injection (Vial) 5,000 UNIT/ML VIAL 5000 UNIT SC (21:48)
[2020-08-30] MEDS: Clobetasol Propionate 0.05% Cream 1 APPLIC TOPICAL (21:51)
[2020-08-31] VITALS (9 sets, daily range): BP systolic 127–167; BP diastolic 71–104; PULSE 95–107; RESP 16–18; TEMP 36.7–37.2; O2SAT 86–96
--- NOTE | 2020-08-31 00:08 | CPS ---
Pt's neck hurt at time of instruction of Incentive Spirometer
[2020-08-31 02:35] LABS: Absolute Lymphocyte Count 0.67 X10^3/uL (0.83-4.51); Absolute Neutrophil Count 12.2 X10^3/uL (2.0-7.7); Basophil# 0.04 X10^3/uL; Basophil% 0.3 % (0-1); Eosinophil# 0.06 X10^3/uL; Eosinophils% 0.5 % (0-5); Hematocrit 39.8 % (40-54); Hemoglobin 13.8 g/dL (13.0-16.5); Lymphocyte # 0.67 X10^3/ul (4.0); Mean Corp Hgb Conc 34.7 g/dL (32-36); Mean Corpuscular Hgb 33.2 pg (27.0-32.0); Mean Corpuscular Volume 95.7 fL (80-94); Mean Platelet Vol. 10.8 fl (6.2-12.0); Monocyte# 0.26 X10^3/uL; NRBC Flagged by Analyzer 0 % (0-5); Neutrophil % 91.7 % (47-70); Platelet Count 239 K/mm3 (150-450); RBC Distribution Width CV 12.3 % (11.6-14.6); RBC Distribution Width SD 43.1 fl (35.1-43.9); Red Blood Count 4.16 M/mm3 (4.6-6.2); White Blood Count 13.3 K/mm3 (4.4-11.0)
[2020-08-31 02:55] LABS: Bedside Glucose 91 mg/dL (70-110)
[2020-08-31 03:00] LABS: ALB/GLOB Ratio 0.6 RATIO (0.9-2.4); AST(SGOT) 23 U/L (15-37); Alanine Aminotransfer ALT/SGPT 20 U/L (16-61); Albumin, Serum 2.8 g/dL (3.2-5.0); Alkaline Phosphatase 99 U/L (45-117); Anion Gap 7 (5-15); BUN 27 mg/dL (7-18); BUN/Creat Ratio 11.6 RATIO (10-20); Calcium,Total 9.2 mg/dL (8.5-10.1); Chloride 98 mmol/L (98-107); Creatinine, Serum 2.32 mg/dL (0.70-1.30); EST Glomerular Filtration Rate 29 mL/min (>60); Est Glom Filt Rate - Afr Amer 36 mL/min (>60); Estimated Creatinine Clearance 26.12 ml/min; Globulin 4.7 g/dL (2.2-4.2); Glucose 155 mg/dL (74-106); Protein, Total 7.5 g/dL (6.4-8.2); Sodium Level 137 mmol/L (136-145)
[2020-08-31 05:43] LABS: Amphetamine Urine VISTA NEGATIVE (<1000 ng/mL); Barbiturate Urine VISTA NEGATIVE (< 200 ng/mL); Benzodiazepine Urine VISTA NEGATIVE (< 200 ng/mL); Cocaine Urine VISTA NEGATIVE (< 300 ng/mL); Ecstacy Urine VISTA POSITIVE (< 500 ng/mL); Methadone Urine VISTA NEGATIVE (< 300 ng/mL); PCP Urine VISTA NEGATIVE (< 25 ng/mL); THC Urine VISTA NEGATIVE (< 50 ng/mL); Vista UDS pH Range 6
[2020-08-31] MEDS: Levothyroxine 75 MCG Tablet PO (06:40)
[2020-08-31] MEDS: Insulin Lispro 100 UNIT/ML INSULN.PEN SC ×2 (06:40→10:11)
[2020-08-31] MEDS: Ipratropium/Albuterol Sulfate 3 ML AMPUL.NEB INHALATION ×3 (07:02→15:33)
[2020-08-31 07:11] LABS: Bedside Glucose 211 mg/dL (70-110)
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
[2020-08-31] MEDS: Tacrolimus Anhydrous 1 MG Capsule 2 MG PO (09:58)
[2020-08-31] MEDS: buPROPion (SR) 150 MG Tablet.SA PO (09:58)
[2020-08-31] MEDS: Pantoprazole Sodium 40 MG Tablet PO (09:58)
[2020-08-31] MEDS: amLODIPine 10 MG Tablet PO (09:58)
[2020-08-31] MEDS: Sertraline 100 MG Tablet PO (09:59)
[2020-08-31] MEDS: Tamsulosin HCl 0.4 MG Capsule PO (09:59)
[2020-08-31] MEDS: Chlorthalidone 50 MG Tablet 25 MG PO (09:59)
[2020-08-31] MEDS: Aspirin 81 MG TAB.CHEW PO (09:59)
[2020-08-31] MEDS: Clobetasol Propionate 0.05% Cream 1 APPLIC TOPICAL (10:00)
[2020-08-31] MEDS: Allopurinol 100 MG Tablet PO (10:00)
[2020-08-31] MEDS: Heparin Injection (Vial) 5,000 UNIT/ML VIAL 5000 UNIT SC (10:00)
[2020-08-31 11:11] LABS: Base Excess 5 mmol/L (-2 to +2); Bicarbonate 29.6 mmol/L (22-26); Blood Gas Specimen Type ART; PO2 50 mmHG (75-100); SITE R Radial; SO2 84 % (95-99); Total Carbon Dioxide 31 mmol/L; pCO2 48.8 mmHg (35-45); pH 7.39 (7.35-7.45)
[2020-08-31 11:55] LABS: Bedside Glucose 401 mg/dL (70-110)
[2020-08-31] MEDS: Insulin Lispro 100 UNIT/ML INSULN.PEN 15 UNIT SC (12:53)
--- NOTE | 2020-08-31 13:54 | CASEMGMT ---
Patient is from [facility]. ALE faxed clinicals including therapy notes to Sal at [facility] to make sure it is okay for patient to return. Physician said he spoke with Sal and let him know he is sending patient back today. SW will also check with patient to see if he needs transportation back. Arlette MELENDREZ MSW
--- NOTE | 2020-08-31 14:21 | CM.UR ---
Pt qualifies for 2L O2 with ambulation at this time. Pt provided with list of local in network DME companies, pt has no preference. Referral faxed to [facility] and tc placed to Sherice Otoole to notify of referral and DC today.
--- NOTE | 2020-08-31 15:46 | DCINST_ITS ---
- Discharge Diagnoses Current Active Problems: Current Active and Chronic Problems Dyspnea (Acute) Hypoxia (Acute) Hypokalemia (Acute) Yfpoy-pc-qhqeqmd kidney injury (Chronic) Encephalopathy (Acute) Depression (Chronic) HTN (hypertension) (Chronic) Diabetes mellitus (Chronic) Alcohol abuse (Chronic) [facility] (Chronic) [facility]; on prograft 2g bid You will use the following diet at home:: Calorie/Carbohydrate Controlled (specify 1200, 1400, etc) - 1800 kun diet Your food should be the consistency of: Regular Your liquids should be the consistency of: Regular/Thin Discharge Activity: Return to Normal Activity Weight Bearing Status: Full weight bearing Additional Instructions: oxygen at 2 liters while ambulating and when sleeping Follow up with Dr. Andres Reyez (pulmonary) in two weeks- [phone] for an appointment- 09/14/20 at 11:15 am Allergies/Adverse Reactions: Allergies cortisone [Cortisone] Allergy (Verified 08/30/20 10:51) Angioedema Penicillins Allergy (Verified 08/30/20 10:51) Unknown Medications to take at Discharge Levothyroxine [Synthroid] 75 mcg PO DAILY 11/19/13 Tacrolimus Anhydrous [Prograf] 2 mg PO BID 06/09/16 Pantoprazole Sodium [Protonix] 40 mg PO MOWEFR 09/07/17 Albuterol Aerosols [Ventolin Aerosols] 2.5 mg INHALATION Q4HWA.RT 02/02/19 Allopurinol 100 mg PO DAILY 07/07/19 Bupropion HCl [Wellbutrin Sr] 150 mg PO BID 07/07/19 Gabapentin [Neurontin] 100 mg PO TIDCM 07/07/19 Multivit-Minerals/FA/Lycopene [One Daily For Men Tablet] 1 tab PO DAILY 07/07/19 Tamsulosin HCl 0.4 mg PO BID 07/07/19 Amlodipine [Norvasc] 10 mg PO DAILY 08/30/20 Aspirin [Aspirin EC] 81 mg PO DAILY@0800 08/30/20 Clobetasol Propionate 15 gm TP BID 08/30/20 Ergocalciferol (Vitamin D2) [Vitamin D2] 50,000 unit PO MO 08/30/20 Insulin Glargine,Hum.rec.anlog [Lantus Solostar] 42 unit SQ DAILY 08/30/20 Insulin Lispro [Humalog] 3 unit SQ BID 08/30/20 Insulin Lispro [Humalog] See Protocol SQ TIDCM 08/30/20 Ketoconazole 1 applic TP TUFR 08/30/20 Loratadine 10 mg PO DAILY 08/30/20 Magnesium Oxide [Magnesium] 400 mg PO BID 08/30/20 Sertraline HCl 100 mg PO DAILY 08/30/20 Sulfamethoxazole/Trimethoprim [Sulfamethoxazole-Tmp Ds Tablet] 1 tab PO MOWEFR 08/30/20 Trazodone HCl 50 mg PO QHS 08/30/20 Furosemide [Lasix] 40 mg PO DAILY #30 tab 08/31/20 The following prescriptions were given: Furosemide [Lasix] 40 mg PO DAILY #30 tab Prescription Printed Primary Care Physician: Wilver Garcias MD [Primary Care Provider] - Please follow up with your Primary Care Physician in: in 3 weeks Test Results: Test results from this visit will be discussed in further detail at your follow- up appointment, if applicable. Please Follow Up With: Andres Reyez DO When: as scheduled 09/14/20 1115 am
--- NOTE | 2020-08-31 15:58 | CASEMGMT ---
ALE spoke with patient and asked if he will need transportation back to [facility]. He asked SW to call his and see if she can transport him. He said if she cannot then he will need a ride. ALE called patient's and it went right to voice mail. ALE attempted to call [facility] to arrange wc transport back to [place]. ALE was told if patient does not have his wheelchair with him insurance does not provide a wheelchair. Therefore, ALE cannot arrange transport back to [place]. ALE called Sal at 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 He said their wheelchair driver left for the day. Fortunately patient's showed up at the hospital and will transport him back. ALE faxed d/c med list to [facility]. Plan: d/c back to [facility]. Patient's transported him. Arlette SALDIVAR
--- NOTE | 2020-09-01 15:41 | DS.PCM_ITS ---
Discharge Date and Diagnosis - Problem List Patient Problems: Active and Suspected Problems Dyspnea (Acute) Hypoxia (Acute) Hypokalemia (Acute) Encephalopathy (Acute) Date of Admission: 08/30/20 Date of Discharge: 08/31/20 - Primary Discharge Diagnosis Acute Problems: Active Problems #1 hypoxia-secondary to COPD #2 obstructive sleep apnea #3 morbid obesity #4 metabolic encephalopathy secondary to hypoxia #5 moderate pulmonary hypertension #6 hypokalemia-secondary to medication usage #7 type 2 diabetes #8 essential hypertension #9 chronic obstructive pulmonary disease - Secondary Discharge Diagnosis Chronic Problems: Chronic Problems Zobai-ip-znnqcek kidney injury (Chronic) Non-healing non-surgical wound (Chronic) Depression (Chronic) HTN (hypertension) (Chronic) Diabetes mellitus (Chronic) Alcohol abuse following liver transplant (Chronic) Alcohol abuse (Chronic) Liver transplanted (Chronic) in 2006 at [facility]; on prograft 2g bid Hospital Course and Treatment Operations: None Procedures: 2-D Echocardiogram Summary of Care Provided: The patient is a 74 year old M was seen in the emergency room at [facility] after being transported from an assisted living facility due to complaints of shortness of breath and mild confusion. Patient has a history of COPD and sleep apnea, he was noncompliant with his CPAP therapy and has not followed up with his linoleum tile floor layer that prescribed it for approximately 10 years. Patient stated he quit smoking in 2019, he has a history of alcoholism but denies currently drinking. Work-up in the emergency room showed his white blood cell count to be elevated at 11,000, chemistry profile showed a potassium of 2.9, creatinine was 2.57, beta natruretic peptide was mildly elevated at 402. Chest x-ray revealed clear lung ochoa with some cardiomegaly. Patient was given IV Lasix and potassium replacement, he was placed on bronchodilator therapy and placed in observation on PCU. His mental status cleared during his hospitalization, he was seen in consultation by pulmonary medicine and they recommended a work-up as an outpatient for sleep apnea. Patient also had an echocardiogram which showed moderate pulmonary hypertension but a normal ejection fraction. It was noted that the patient was on potassium lowering medications at assisted living and these were stopped at the time of his discharge back to assisted living. Patient did not require oxygen at rest however he required oxygen at 2 L to maintain his pulse ox above 88% on activity. Patient agreed to have the oxygen set up for him. On examination he appeared in good health and spirits. Vital signs as documented. Skin warm and dry and without overt rashes. Neck without JVD, neck was supple, trachea midline, thyroid was normal. Lungs clear bilaterally, normal air movement was noted. Heart exam notable for regular rhythm, normal sounds and absence of murmurs, rubs or gallops. Abdomen unremarkable and without evidence of organomegaly, masses, or abdominal aortic enlargement. Patient has morbid obesity bowel sounds are present, abdomen is not distended. Extremities nonedematous, no cyanosis was noted, no clubbing was noted. Neuro: Cranial nerves II through XII are grossly intact, no focal motor deficits were noted, sensation to light touch and pinprick intact, motor exam 5/5 throughout. Psych: Patient is alert and oriented x3, he does not appear anxious or depressed, he does not appear agitated. Patient was discharged in stable condition back to his assisted living facility on 08/31/2020. An appointment was made by myself for the patient to be seen in Dr. Acosta/Dereje's office in 2 weeks. He will be screened for sleep apnea. Patient Problems: Active and Suspected Problems Dyspnea (Acute) Hypoxia (Acute) Hypokalemia (Acute) Encephalopathy (Acute) - Physical Exam Vitals/I&O's: Vital Signs Temp Pulse Resp BP Pulse Ox 98.6 F 105 H 16 127/71 H 95 08/31/20 14:50 08/31/20 15:33 08/31/20 15:33 08/31/20 14:50 08/31/20 14:50 Oxygen Flow Rate (L/min) [ 2 AMBULATING with Oxygen #1] Oxygen Flow Rate (L/min) [ 0 AMBULATING on Room Air] Oxygen Flow Rate (L/min) [At 2 REST with Oxygen] Oxygen Flow Rate (L/min) [At 0 REST on Room Air] Oxygen Flow Rate (L/min) 2 Oxygen Delivery Method Nasal Cannula Weight: 117.5 kg Body Mass Index (BMI) 41.1 Finger Stick Blood Glucose 93 Intake and Output for Last 24 Hours 08/30/20 08/31/20 09/01/20 23:59 23:59 23:59 Intake Total 700 / 700 Output Total 950 / 950 Balance -250 / -250 Microbiology Past 72 Hours 08/30/20 18:55 Mucosa - Nasopharyngeal Respiratory Panel (PCR) - Final 08/30/20 11:28 Mucosa - Nose SARS-CoV-2 Antigen (Rapid) - Final Discharge Activity: Return to Normal Activity Weight Bearing Status: Full weight bearing Home Medications: Medications to take at Discharge Levothyroxine [Synthroid] 75 mcg PO DAILY 11/19/13 Tacrolimus Anhydrous [Prograf] 2 mg PO BID 06/09/16 Pantoprazole Sodium [Protonix] 40 mg PO MOWEFR 09/07/17 Albuterol Aerosols [Ventolin Aerosols] 2.5 mg INHALATION Q4HWA.RT 02/02/19 Allopurinol 100 mg PO DAILY 07/07/19 Bupropion HCl [Wellbutrin Sr] 150 mg PO BID 07/07/19 Gabapentin [Neurontin] 100 mg PO TIDCM 07/07/19 Multivit-Minerals/FA/Lycopene [One Daily For Men Tablet] 1 tab PO DAILY 07/07/19 Tamsulosin HCl 0.4 mg PO BID 07/07/19 Amlodipine [Norvasc] 10 mg PO DAILY 08/30/20 Aspirin [Aspirin EC] 81 mg PO DAILY@0800 08/30/20 Clobetasol Propionate 15 gm TP BID 08/30/20 Ergocalciferol (Vitamin D2) [Vitamin D2] 50,000 unit PO MO 08/30/20 Insulin Glargine,Hum.rec.anlog [Lantus Solostar] 42 unit SQ DAILY 08/30/20 Insulin Lispro [Humalog] 3 unit SQ BID 08/30/20 Insulin Lispro [Humalog] See Protocol SQ TIDCM 08/30/20 Ketoconazole 1 applic TP TUFR 08/30/20 Loratadine 10 mg PO DAILY 08/30/20 Magnesium Oxide [Magnesium] 400 mg PO BID 08/30/20 Sertraline HCl 100 mg PO DAILY 08/30/20 Sulfamethoxazole/Trimethoprim [Sulfamethoxazole-Tmp Ds Tablet] 1 tab PO MOWEFR 08/30/20 Trazodone HCl 50 mg PO QHS 08/30/20 Furosemide [Lasix] 40 mg PO DAILY #30 tab 08/31/20 Following Prescriptions Were Given to Patient: Furosemide [Lasix] 40 mg PO DAILY #30 tab Prescription Printed Primary Care Physician: Wilver Garcias MD [Primary Care Provider] - Please follow up with your Primary Care Physician in: in 3 weeks Please Follow Up With: Andres Reyez DO When: as scheduled 09/14/20 1115 am Disposition: Asstd Living/Non-Skill NH Minutes spent on discharge:: 30 Patient Condition:: Stable Medical Necessity - Tobacco Use Smoking Status: Former smoker Tobacco Use: Non-smoker Meaningful Use Info Meaningful Use Diagnoses (Choose all that apply): None applicable OBSV E&M: 96085 Observation care discharge
[2020-09-04 20:41] LABS: Tacrolimus (FK506) 6.7 ng/mL (2.0-20.0)
== END 2020-08-31 15:59 | disposition home or self-care (01) ==
LOC: ED 16:51 → PCU 16:56
PROVIDERS: Admitting Provider Family Medicine; Emergency Provider Emergency Medicine; PCP Internal Medicine; Visit Provider Internal Medicine
DX: R09.02 Hypoxemia (principal); J44.9 Chronic obstructive pulmonary disease, unspecified; G47.33 Obstructive sleep apnea (adult) (pediatric); E87.6 Hypokalemia; N17.9 Acute kidney failure, unspecified; F32.9 Major depressive disorder, single episode, unspecified; I12.9 Hypertensive chronic kidney disease with stage 1 through stage 4 chronic kidney disease, or unspecified chronic kidney disease; E11.22 Type 2 diabetes mellitus with diabetic chronic kidney disease; E66.01 Morbid (severe) obesity due to excess calories; Z68.41 Body mass index [BMI] 40.0-44.9, adult; N40.0 Benign prostatic hyperplasia without lower urinary tract symptoms; E78.5 Hyperlipidemia, unspecified; K21.9 Gastro-esophageal reflux disease without esophagitis; F41.9 Anxiety disorder, unspecified; N18.4 Chronic kidney disease, stage 4 (severe); I27.20 Pulmonary hypertension, unspecified; G93.41 Metabolic encephalopathy; F10.21 Alcohol dependence, in remission; Z91.19 Patient's noncompliance with other medical treatment and regimen; Z87.891 Personal history of nicotine dependence; Z94.4 Liver transplant status; Z79.899 Other long term (current) drug therapy; Z79.82 Long term (current) use of aspirin; Z79.4 Long term (current) use of insulin
CPT/HCPCS: 36415; 36600; 71045; 80048; 80053; 80076; 80197; 80307; 82077; 82140; 82803; 82962; 83735; 83880; 84145; 84443; 84484; 85025; 87426; 87633; 93005; 93306; 94002; 94640; 96372; 96374; 96375; 96376; 97162; 97166; 97802; 99218; 99251; 99285; Q9956; Q9957; A4216; G0378; G0463; J1940

== ENCOUNTER 2020-09-14 12:35 | Emergency (ER) | payer MEDICARE, OTHER, SELFPAY ==
[2020-09-14] VITALS (7 sets, daily range): BP systolic 120–141; BP diastolic 74–89; PULSE 83–109; RESP 12–23; TEMP 36.9; O2SAT 93–97; BMI 42.8
--- NOTE | 2020-09-14 13:00 | EKG12_ITS ---
Test Reason : Blood Pressure : / mmHG Vent. Rate : 098 BPM Atrial Rate : 098 BPM P-R Int : 240 ms QRS Dur : 136 ms QT Int : 372 ms P-R-T Axes : 095 043 038 degrees QTc Int : 474 ms Sinus rhythm with 1st degree A-V block Right bundle branch block Abnormal ECG Confirmed by ASHA AMBRIZ, COURTNEY ([id number]), newspaper editor BEATRIZ MOREL ([id number]) on 09/17/2020 1:45:34 PM Referred By: WALKER Confirmed By:COURTNEY BARRY MD
[2020-09-14 13:31] LABS: Allen Test Positive; Base Excess 7 mmol/L (-2 to +2); Blood Gas Specimen Type ART; O2 Delivery Device Cannula; PO2 77 mmHG (75-100); SITE R Radial; SO2 94 % (95-99); Total Carbon Dioxide 35 mmol/L; pCO2 63.6 mmHg (35-45); pH 7.32 (7.35-7.45)
--- NOTE | 2020-09-14 13:32 | RAD_ITS ---
STUDY: X-RAY CHEST REASON FOR EXAM: Male, 74 years old. SOB TECHNIQUE: Single AP portable view of the chest. COMPARISON: Comparison is made with prior study of 08/30/2020. FINDINGS: EKG electrodes are seen. Scattered calcified granulomas. The lungs are clear. There is no demonstrated pleural abnormality. There is moderate cardiac enlargement. Calcified hilar lymph nodes. Normal visualized pulmonary arteries. Normal visualized aortic arch and descending thoracic aorta. Normal visualized thoracic spine. Normal visualized ribs, clavicles, and shoulders. There is no demonstrated abnormality of the visualized soft tissue structures of the upper abdomen. RAD/Chest 1 View (Portable) IMPRESSION: Moderate cardiomegaly. The lungs are clear. Electronically Signed: Asher Jefferson MD at 13:48 EDT , Service support ,
[2020-09-14 13:38] LABS: Absolute Neutrophil Count 6.2 X10^3/uL (2.0-7.7); Basophil# 0.06 X10^3/uL; Basophil% 0.7 % (0-1); Eosinophil# 0.43 X10^3/uL; Hematocrit 35.5 % (40-54); Hemoglobin 11.5 g/dL (13.0-16.5); Lymphocyte % 12.7 % (19-41); Mean Corp Hgb Conc 32.4 g/dL (32-36); Mean Corpuscular Hgb 32.7 pg (27.0-32.0); Mean Corpuscular Volume 100.9 fL (80-94); Monocyte% 9.2 % (0-10); NRBC Flagged by Analyzer 0 % (0-5); Neutrophil # 6.24 X10^3/uL (2.7-7.7); Neutrophil % 72.2 % (47-70); Platelet Count 269 K/mm3 (150-450); RBC Distribution Width CV 12.6 % (11.6-14.6); RBC Distribution Width SD 46.8 fl (35.1-43.9); Red Blood Count 3.52 M/mm3 (4.6-6.2); White Blood Count 8.7 K/mm3 (4.4-11.0)
[2020-09-14 13:54] LABS: BNP,B-Type NATRIURETIC PEPTIDE 47.3 pg/mL (0-100)
[2020-09-14 13:57] LABS: Anion Gap 5 (5-15); BUN 28 mg/dL (7-18); BUN/Creat Ratio 10.9 RATIO (10-20); Calcium,Total 8.6 mg/dL (8.5-10.1); Chloride 101 mmol/L (98-107); Creatinine, Serum 2.57 mg/dL (0.70-1.30); EST Glomerular Filtration Rate 26 mL/min (>60); Est Glom Filt Rate - Afr Amer 32 mL/min (>60); Estimated Creatinine Clearance 23.58 ml/min; Glucose 180 mg/dL (74-106); Potassium 4.3 mmol/L (3.5-5.1); Sodium Level 139 mmol/L (136-145)
[2020-09-14 14:08] LABS: Lactic Acid 0.5 mmol/L (0.4-1.9)
--- NOTE | 2020-09-14 14:18 | CT_ITS ---
STUDY: CT ABDOMEN AND PELVIS WITHOUT CONTRAST REASON FOR EXAM: Male, 74 years old. Swelling. Abnormal laboratory values. RADIATION DOSAGE (If Supplied By Facility): CTDIvol = ( 21.74 ) mGy, DLP = ( 1102.77 ) mGycm TECHNIQUE: Transaxial images were obtained from the dome of the diaphragm to the symphysis pubis without oral contrast, and without intravenous contrast. Sagittal and coronal images were reconstructed. Individualized dose optimization techniques were used for this CT. COMPARISON: None. FINDINGS: Findings suggest some mild scarring at the lung bases. Calcified left infrahilar lymph nodes. Mild degree of pericardial thickening. Coronary artery calcification. The patient is status post resection of the left lobe of the liver. Surgical anastomotic clips are seen in the region of the momo hepatis. Normal gallbladder and extrahepatic biliary system. There are multiple benign calcified granulomata of the spleen. There is diffuse atrophy of the pancreas. Normal bilateral adrenal glands. Normal right kidney. Normal left kidney. There is a small hiatal hernia. There is persistent diffuse thickened gastric mucosa. Small lymph nodes are seen in the gastroepiploic ligament. Normal small intestine. Normal colon. The appendix is visualized and appears normal. There is scattered atherosclerotic calcification of the abdominal aorta, without a demonstrated aneurysm. Normal inferior vena cava. Normal retroperitoneum. Normal urinary bladder. There are prostatic calcifications. Diffuse infiltration of the subcutaneous fat overlying the anterior abdominal wall extending into the pelvis with evidence of overlying skin thickening. There are diffuse degenerative changes of the visualized lumbar spine. CT/Abdomen/Pelvis without Cont IMPRESSION: Status post resection of the left lobe of the liver. Persistent thickening of the gastric wall. Atrophy of the pancreas. Diffuse infiltration of the subcutaneous fat overlying the anterior abdominal wall with extension into the overlying pelvic region with skin thickening. This may be secondary to fluid overload. Electronically Signed: Asher Jefferson MD at 14:52 EDT , Service support ,
[2020-09-14 14:37] LABS: Lipase 48 U/L (73-393)
[2020-09-14 14:39] LABS: AST(SGOT) 16 U/L (15-37); Alanine Aminotransfer ALT/SGPT 21 U/L (16-61); Albumin, Serum 2.5 g/dL (3.2-5.0); Alkaline Phosphatase 86 U/L (45-117); Bilirubin, Direct 0.09 mg/dL (0.00-0.30); Protein, Total 6.5 g/dL (6.4-8.2)
--- NOTE | 2020-09-14 14:42 | ED.VISSUMM ---
- ER Visit Summary Date of Service: 09/14/20 Chief Complaint: Shortness of breath History of Present Illness: The patient is a [address] Garcias and Dr. Reyez. He reports has been short of breath for approximately 1 week. He does report he is a little bit of cough. No fever or chills. No chest pain. He denies any abdominal pain, nausea, vomiting, or diarrhea. Reports that he has pain over my broken teeth. Physical Examination: Vitals: 98.4, 141/89, 106, 20, 97% on 2 L nasal cannula which is his home O2. General: Well-nourished and well-developed. Head: Normocephalic atraumatic. Neck: Supple, no lymphadenopathy. No JVD. Nontender. Cardiovascular: Regular rate and rhythm. 2 out of 6 systolic murmur. Respiratory: No respiratory distress. Clear to auscultation bilaterally. Abdominal: Soft, nontender, nondistended, normal bowel sounds. No guarding, rebound, or peritoneal signs. Back: Nontender. Extremities: Nontender, 2+ pitting edema lower extremities bilaterally a. Skin: Normal color, no rash. Neurologic: Alert and oriented ?3. Cranial nerves II through XII are intact. Normal strength and sensation. Psych: Normal affect. Test Results: EKG is sinus at 98 with right bundle branch block. Is unchanged from earlier this month. Troponin is negative. BNP is 47.3. Lactic acid is 0.5. LFTs show an albumin of 2.5. Lipase is 48. Chem-7 shows a CO2 of 33, glucose 180, creatinine 2.57. Creatinine has been between 2.32?2.7 since 2019. CO2 was 32?33 earlier this month. CBC shows an H&H 11.5 and 35.5, segmented for 72, sats 13. ABG shows a pH of 7.32 with a bicarb of 33 and a CO2 of 63.6. Clinical Impression(s) from Imaging Studies Chest X-Ray 09/14/20 13:32 IMPRESSION: Moderate cardiomegaly. The lungs are clear. Electronically Signed: Asher Jefferson MD at 13:48 EDT , Service support , Abdomen/Pelvis CT 09/14/20 14:18 IMPRESSION: Status post resection of the left lobe of the liver. Persistent thickening of the gastric wall. Atrophy of the pancreas. Diffuse infiltration of the subcutaneous fat overlying the anterior abdominal wall with extension into the overlying pelvic region with skin thickening. This may be secondary to fluid overload. Electronically Signed: Asher Jefferson MD at 14:52 EDT , Service support , Emergency Department Course and Treatment: Patient is resting comfortably without complaint. The patient's ABG does show a CO2 of 63.6. However he is compensated for this with a bicarb of 33 and his 7.32. He does not appear to be lethargic from hypercarbia. He did not want to wear BiPAP. Treatment Plan: Patient was discussed with the physician for his assisted living, Dr. Moran. She asked that we get the patient into the full care side of the long term. This was discussed with case management here and case management at the long term. Case management at the long term felt that he does not meet criteria to go to the full care side of the long term. The patient is refusing to be transferred to the full care side of the long term. I attempted to page Dr. Moran again and did not get a call. At this time the patient's problems appear chronic rather than acute and I do not have a reason to admit him to the hospital. He will be transferred back to assisted living and instructed to follow-up his doctor soon as possible. Return to the emergency department for any worsening symptoms. Disposition: To home in improved and stable condition. Impression: 1. COPD. 2. Chronic respiratory failure with compensation. 3. Chronic renal insufficiency. This note was generated with [employer] software. It may contain incorrect words, spelling, and punctuation that were not noted in review of the chart prior to signing ED Disposition - Plan for ED Patient: Instructions: Care for COPD Referrals: Pam Moran MD [NON-STAFF] - As soon as possible
--- NOTE | 2020-09-14 15:54 | ED.RN ---
Per the doctor at [facility] they do no believe the patient is a candidate to return to the assisted living. They want him to go over to the long term part of [facility]. But states she is unable to take care of that. This RN calls the nurse at [facility] and he states he is unable to accept the patient and he cannot take care of moving the patient to [facility]. I asked that he contact his high school social science teacher to either contact [facility] or the doctor at [facility] as the patient is discharged and ready to go back to their facility. Awaiting a call back.
--- NOTE | 2020-09-14 16:34 | ED.RN ---
Spoke with Julissa from SW from [facility]. She states she doesnt understand why the patient needs moved over to the group home from assisted living. I told her that was of the request of the doctor at [facility]. She states she doesnt think she can get him moved tonight. She asked that our SW send her over paperwork, i told her we do not have a SW in the ED today that i would try contacting Emma AGUILERA in OB. Julissa states she will try to contact their doctor to see why the patient cant go back to [facility]. Waiting to here back.
--- NOTE | 2020-09-14 18:04 | NURSING ---
CALLED SQUAD. ETA IS 30 MIN
[2020-09-14] MEDS: Ipratropium/Albuterol Sulfate 3 ML AMPUL.NEB INHALATION (18:05)
--- NOTE | 2020-09-14 18:15 | CM.ED ---
Social Work - Emergency Department Consulted by Dr. Rodriguez regarding discharge disposition for this patient who resides at [facility]. Per physician, the patient's physician at the [facility] requesting patient go to the alf side. This flex o writer operator met with patient in room. Patient alert and oriented to person, place, year, month, and situation. Patient reports he has been living at the [facility] for a year now and this is the patient's home. Patient's helps patient when patient has big decision to make, but the is out of town. Patient reports he gave a up a lot to go the assisted living and is not willing to agree to go to a SNF, even short term right now. Patient reports has not even seen the alf side to know if this is something patient would like. Patient adamant that he wants to return to his home. Patient became irritable with this flex o writer operator for questioning discharge disposition, making comment that who are you to try and change the patient's living situation. Educated patient that this flex o writer operator present to sort out the patient's wishes while also exploring options based on what patient's assisted living physician told the ED doctor. Patient maintains that wants to return to the assisted living. Explored with patient as to whether patient feels he is currently able to get up and around apartment and tend to own needs. Patient reports belief that can maintain in the assisted living. This flex o writer operator reviewed the chart and noted that patient was at a routine specialist appointment today and set to go back to the assisted living when the assisted living declined patient returning, due to some abnormal labwork. This flex o writer operator spoke with Dr. Rodriguez, and nothing acute to admit patient to the hospital for. This flex o writer operator made call to Al in [place] ([facility] and [facility]). This flex o writer operator transferred to Julissa in admissions. Left message. Called and left message at [facility]. Called Julissa again and able to speak to Julissa. Julissa reports was told that if the doctor at [facility] not willing to admit patient then patient cannot return. This flex o writer operator asked to speak to the claim administrator. Transferred to the claim administrator Asha. Message left to call this flex o writer operator with specific concerns related to this patient's disposition: patient's home is the assisted living, has lived there for a year, is on a Medicaid wavier, patient was out of the building for a routine appointment, as well as questioned as under what circumstances is a person not allowed to return to their home from a routine doctor's appointment. Received all from Asha. This flex o writer operator discussed concerns and explained that patient is upset in being asked about going to a alf. This flex o writer operator suggested that assisted living staff, whom the patient knows and trusts, talk to patient about care concerns and attempt alternative placement if indicated and agreed upon by the patient. Patient able to return to Assisted living. Asha asked if doctor would document that patient is safe for assisted living. This flex o writer operator discussed that if patient has been declining at the assisted living this should have been addressed at the assisted living, and the patient still has the right to refuse SNF; admission to the hospital does not change patient's rights to refuse SNF. Spoke with Dr. Michael lowry. Per physician, there is no acute reason to admit to the hospital and current condition is chronic. Patient to discharge to the assisted living. -ALMA Lew, EARTH SCIENCE LABORATORY TECHNICIAN
--- NOTE | 2020-09-14 18:20 | ED.RN ---
Called report to [facility] spoke with nurse Morataya.
== END 2020-09-14 18:59 | disposition home or self-care (01) ==
PROVIDERS: Emergency Provider Emergency Medicine; PCP Internal Medicine
DX: J44.9 Chronic obstructive pulmonary disease, unspecified (principal); J96.10 Chronic respiratory failure, unspecified whether with hypoxia or hypercapnia; I12.9 Hypertensive chronic kidney disease with stage 1 through stage 4 chronic kidney disease, or unspecified chronic kidney disease; N18.9 Chronic kidney disease, unspecified; L21.9 Seborrheic dermatitis, unspecified
CPT/HCPCS: 36600; 71045; 74176; 80048; 80076; 82803; 83605; 83690; 83880; 84484; 85025; 93005; 94640; 99285; A4216

== ENCOUNTER → 2020-10-02 19:50 | Outpatient (CLI) | payer MEDICARE, MEDICAID, SELFPAY ==
[2020-09-14 12:45] VITALS: BMI 42.8
== END ==
PROVIDERS: PCP Internal Medicine; Visit Provider Nurse Practitioner Acute Care
DX: G47.33 Obstructive sleep apnea (adult) (pediatric) (principal)
CPT/HCPCS: 95811

== ENCOUNTER → 2020-10-29 12:24 | Outpatient (CLI) | payer MEDICARE, MEDICAID, SELFPAY ==
[2020-09-14 12:45] VITALS: BMI 42.8
== END ==
PROVIDERS: PCP Internal Medicine; Visit Provider Nurse Practitioner Acute Care
DX: R69 Illness, unspecified (principal)

== ENCOUNTER → 2020-11-22 10:30 | Outpatient (REF) | payer MEDICARE, MEDICAID, SELFPAY ==
[2020-09-14 12:45] VITALS: BMI 42.8
[2020-11-22 12:16] LABS: Anion Gap 6 (5-15); BUN 32 mg/dL (7-18); BUN/Creat Ratio 13.1 RATIO (10-20); Calcium,Total 8.8 mg/dL (8.5-10.1); Chloride 105 mmol/L (98-107); Creatinine, Serum 2.45 mg/dL (0.70-1.30); EST Glomerular Filtration Rate 28 mL/min (>60); Est Glom Filt Rate - Afr Amer 33 mL/min (>60); Glucose 99 mg/dL (74-106); Magnesium 1.6 mg/dL (1.6-2.6); Potassium 4.9 mmol/L (3.5-5.1); Sodium Level 137 mmol/L (136-145)
== END ==
LOC: OLS.SWAL 10:30
PROVIDERS: PCP Internal Medicine; Visit Provider Internal Medicine
DX: E87.5 Hyperkalemia (principal)
CPT/HCPCS: 36415; 80048; 83735

== ENCOUNTER → 2020-11-26 05:00 | Outpatient (REF) | payer MEDICARE, MEDICAID, SELFPAY ==
[2020-09-14 12:45] VITALS: BMI 42.8
[2020-11-26 09:26] LABS: Absolute Lymphocyte Count 2.15 X10^3/uL (0.83-4.51); Absolute Neutrophil Count 5.2 X10^3/uL (2.0-7.7); Basophil# 0.08 X10^3/uL; Basophil% 0.8 % (0-1); Eosinophil# 1.94 X10^3/uL; Eosinophils% 19.2 % (0-5); Hematocrit 37.6 % (40-54); Lymphocyte # 2.15 X10^3/ul (0.83-4.51); Lymphocyte % 21.2 % (19-41); Mean Corp Hgb Conc 31.9 g/dL (32-36); Mean Corpuscular Hgb 31.5 pg (27.0-32.0); Mean Corpuscular Volume 98.7 fL (80-94); Mean Platelet Vol. 11.4 fl (6.2-12.0); Monocyte# 0.76 X10^3/uL; Monocyte% 7.5 % (0-10); NRBC Flagged by Analyzer 0 % (0-5); Neutrophil # 5.15 X10^3/uL (2.7-7.7); Neutrophil % 50.8 % (47-70); Platelet Count 252 K/mm3 (150-450); RBC Distribution Width CV 13.7 % (11.6-14.6); RBC Distribution Width SD 50.1 fl (35.1-43.9); Red Blood Count 3.81 M/mm3 (4.6-6.2); White Blood Count 10.1 K/mm3 (4.4-11.0)
[2020-11-26 09:37] LABS: ALB/GLOB Ratio 0.7 RATIO (0.9-2.4); AST(SGOT) 14 U/L (15-37); Alanine Aminotransfer ALT/SGPT 22 U/L (16-61); Albumin, Serum 2.8 g/dL (3.2-5.0); Alkaline Phosphatase 93 U/L (45-117); Anion Gap 8 (5-15); BUN 35 mg/dL (7-18); BUN/Creat Ratio 13.8 RATIO (10-20); Calcium,Total 8.4 mg/dL (8.5-10.1); Chloride 107 mmol/L (98-107); Creatinine, Serum 2.53 mg/dL (0.70-1.30); EST Glomerular Filtration Rate 27 mL/min (>60); Est Glom Filt Rate - Afr Amer 32 mL/min (>60); Globulin 4.1 g/dL (2.2-4.2); Glucose 75 mg/dL (74-106); Magnesium 1.7 mg/dL (1.6-2.6); Phosphorus 3.2 mg/dL (2.5-4.9); Potassium 4.8 mmol/L (3.5-5.1); Protein, Total 6.9 g/dL (6.4-8.2); Sodium Level 140 mmol/L (136-145)
[2020-11-27 08:42] LABS: GGTP 44 U/L (15-85)
[2020-11-28 20:23] LABS: Tacrolimus (FK506) 6.2 ng/mL (2.0-20.0)
== END ==
LOC: OLS.SWAL 05:00
PROVIDERS: PCP Internal Medicine; Visit Provider Internal Medicine
DX: K76.9 Liver disease, unspecified (principal); E61.2 Magnesium deficiency; E83.30 Disorder of phosphorus metabolism, unspecified; R73.02 Impaired glucose tolerance (oral)
CPT/HCPCS: 36415; 80053; 80197; 82977; 83735; 84100; 85025

== ENCOUNTER → 2020-12-06 05:00 | Outpatient (REF) | payer MEDICARE, MEDICAID, SELFPAY ==
[2020-09-14 12:45] VITALS: BMI 42.8
[2020-12-06 07:51] LABS: Anion Gap 6 (5-15); BUN 25 mg/dL (7-18); BUN/Creat Ratio 10.2 RATIO (10-20); Chloride 106 mmol/L (98-107); Creatinine, Serum 2.46 mg/dL (0.70-1.30); EST Glomerular Filtration Rate 27 mL/min (>60); Est Glom Filt Rate - Afr Amer 33 mL/min (>60); Glucose 159 mg/dL (74-106); Magnesium 1.4 mg/dL (1.6-2.6); Potassium 4.1 mmol/L (3.5-5.1); Sodium Level 137 mmol/L (136-145)
[2020-12-12 06:34] VITALS: BMI 39.6
== END ==
LOC: OLS.SWAL 05:00
PROVIDERS: PCP Internal Medicine; Visit Provider Internal Medicine
DX: N18.30 Chronic kidney disease, stage 3 unspecified (principal)
CPT/HCPCS: 36415; 80048; 83735; 84550

== ENCOUNTER → 2020-12-13 05:00 | Outpatient (REF) | payer MEDICARE, MEDICAID, SELFPAY ==
[2020-12-12 06:34] VITALS: BMI 39.6
[2020-12-13 09:00] LABS: Anion Gap 4 (5-15); BUN 19 mg/dL (7-18); BUN/Creat Ratio 9.2 RATIO (10-20); Calcium,Total 8.4 mg/dL (8.5-10.1); Chloride 108 mmol/L (98-107); Creatinine, Serum 2.07 mg/dL (0.70-1.30); EST Glomerular Filtration Rate 33 mL/min (>60); Est Glom Filt Rate - Afr Amer 41 mL/min (>60); Glucose 74 mg/dL (74-106); Magnesium 1.9 mg/dL (1.6-2.6); Sodium Level 139 mmol/L (136-145)
== END ==
LOC: OLS.SWAL 05:00
PROVIDERS: PCP Internal Medicine; Visit Provider Internal Medicine
DX: N18.30 Chronic kidney disease, stage 3 unspecified (principal)
CPT/HCPCS: 36415; 80048; 83735

== ENCOUNTER → 2020-12-20 05:00 | Outpatient (REF) | payer MEDICARE, MEDICAID, SELFPAY ==
[2020-12-12 06:34] VITALS: BMI 39.6
[2020-12-20 08:06] LABS: Anion Gap 5 (5-15); BUN 30 mg/dL (7-18); BUN/Creat Ratio 12.7 RATIO (10-20); Calcium,Total 8.9 mg/dL (8.5-10.1); Chloride 106 mmol/L (98-107); Creatinine, Serum 2.36 mg/dL (0.70-1.30); EST Glomerular Filtration Rate 29 mL/min (>60); Est Glom Filt Rate - Afr Amer 35 mL/min (>60); Glucose 121 mg/dL (74-106); Magnesium 1.9 mg/dL (1.6-2.6); Potassium 4.1 mmol/L (3.5-5.1); Sodium Level 140 mmol/L (136-145)
== END ==
LOC: OLS.SWAL 05:00
PROVIDERS: PCP Internal Medicine; Visit Provider Internal Medicine
DX: N18.30 Chronic kidney disease, stage 3 unspecified (principal)
CPT/HCPCS: 36415; 80048; 83735

== ENCOUNTER → 2020-12-26 05:00 | Outpatient (REF) | payer MEDICARE, MEDICAID, SELFPAY ==
[2020-12-12 06:34] VITALS: BMI 39.6
[2020-12-26 09:01] LABS: BUN 25 mg/dL (7-18); BUN/Creat Ratio 12.9 RATIO (10-20); Calcium,Total 8.6 mg/dL (8.5-10.1); Chloride 106 mmol/L (98-107); Cholesterol 206 mg/dL (200); Creatinine, Serum 1.94 mg/dL (0.70-1.30); EST Glomerular Filtration Rate 36 mL/min (>60); Est Glom Filt Rate - Afr Amer 44 mL/min (>60); Glucose 89 mg/dL (74-106); High Density Lipoprotein 45 mg/dL; Sodium Level 136 mmol/L (136-145); Triglycerides 203 mg/dL; Uric Acid 6.4 mg/dL (3.5-7.2); Very Low Density Lipoprotein 41 mg/dL (5-40)
[2020-12-27 08:30] LABS: Magnesium 1.8 mg/dL (1.6-2.6)
== END ==
LOC: OLS.SWAL 05:00
PROVIDERS: PCP Internal Medicine
DX: N18.32 Chronic kidney disease, stage 3b (principal); E87.5 Hyperkalemia; Z94.4 Liver transplant status
CPT/HCPCS: 36415; 80061; 80069; 83735; 84550

== ENCOUNTER → 2021-01-03 05:00 | Outpatient (REF) | payer MEDICARE, MEDICAID, SELFPAY ==
[2020-12-12 06:34] VITALS: BMI 39.6
[2021-01-03 07:46] LABS: Anion Gap 8 (5-15); BUN 30 mg/dL (7-18); BUN/Creat Ratio 12.7 RATIO (10-20); Calcium,Total 8.5 mg/dL (8.5-10.1); Chloride 106 mmol/L (98-107); Creatinine, Serum 2.36 mg/dL (0.70-1.30); EST Glomerular Filtration Rate 29 mL/min (>60); Est Glom Filt Rate - Afr Amer 35 mL/min (>60); Glucose 114 mg/dL (74-106); Magnesium 1.9 mg/dL (1.6-2.6); Potassium 4.2 mmol/L (3.5-5.1); Sodium Level 139 mmol/L (136-145)
== END ==
LOC: OLS.SWAL 05:00
PROVIDERS: PCP Internal Medicine; Visit Provider Internal Medicine
DX: E87.5 Hyperkalemia (principal)
CPT/HCPCS: 36415; 80048; 83735

== ENCOUNTER → 2021-01-10 05:00 | Outpatient (REF) | payer MEDICARE, MEDICAID, SELFPAY ==
[2020-12-12 06:34] VITALS: BMI 39.6
[2021-01-10 08:20] LABS: Anion Gap 5 (5-15); BUN 28 mg/dL (7-18); BUN/Creat Ratio 12.6 RATIO (10-20); Calcium,Total 8.9 mg/dL (8.5-10.1); Chloride 104 mmol/L (98-107); Creatinine, Serum 2.22 mg/dL (0.70-1.30); EST Glomerular Filtration Rate 31 mL/min (>60); Est Glom Filt Rate - Afr Amer 37 mL/min (>60); Glucose 110 mg/dL (74-106); Magnesium 2.1 mg/dL (1.6-2.6); Potassium 4.3 mmol/L (3.5-5.1); Sodium Level 138 mmol/L (136-145)
== END ==
LOC: OLS.SWAL 05:00
PROVIDERS: PCP Internal Medicine; Visit Provider Internal Medicine
DX: N18.30 Chronic kidney disease, stage 3 unspecified (principal); E87.5 Hyperkalemia
CPT/HCPCS: 36415; 80048; 83735

== ENCOUNTER → 2021-01-14 04:00 | Outpatient (REF) | payer MEDICARE, MEDICAID, SELFPAY ==
[2020-12-12 06:34] VITALS: BMI 39.6
[2021-01-14 08:45] LABS: Cholesterol 225 mg/dL (200); High Density Lipoprotein 54 mg/dL; Triglycerides 143 mg/dL; Very Low Density Lipoprotein 29 mg/dL (5-40)
[2021-01-17 08:41] LABS: Anion Gap 9 (5-15); BUN 29 mg/dL (7-18); BUN/Creat Ratio 12.9 RATIO (10-20); Calcium,Total 8.6 mg/dL (8.5-10.1); Chloride 104 mmol/L (98-107); Creatinine, Serum 2.25 mg/dL (0.70-1.30); EST Glomerular Filtration Rate 30 mL/min (>60); Est Glom Filt Rate - Afr Amer 37 mL/min (>60); Glucose 76 mg/dL (74-106); Magnesium 2.1 mg/dL (1.6-2.6); Potassium 4.4 mmol/L (3.5-5.1); Sodium Level 138 mmol/L (136-145)
== END ==
LOC: OLS.SWAL 04:00
PROVIDERS: PCP Internal Medicine
DX: Z48.23 Encounter for aftercare following liver transplant (principal); Z94.4 Liver transplant status
CPT/HCPCS: 36415; 80048; 80061; 83735

== ENCOUNTER → 2021-01-21 04:00 | Outpatient (REF) | payer MEDICARE, MEDICAID, SELFPAY ==
[2020-12-12 06:34] VITALS: BMI 39.6
[2021-01-21 08:42] LABS: CRP 9.91 mg/L (0.0-3.0); Uric Acid 6.2 mg/dL (3.5-7.2)
== END ==
LOC: OLS.SWAL 04:00
PROVIDERS: PCP Internal Medicine; Visit Provider Internal Medicine
DX: M1A.00X0 Idiopathic chronic gout, unspecified site, without tophus (tophi) (principal)
CPT/HCPCS: 36415; 84550; 86140

== ENCOUNTER → 2021-01-31 05:00 | Outpatient (REF) | payer MEDICARE, MEDICAID, SELFPAY ==
[2020-12-12 06:34] VITALS: BMI 39.6
[2021-01-31 09:02] LABS: Anion Gap 7 (5-15); BUN 28 mg/dL (7-18); BUN/Creat Ratio 12.6 RATIO (10-20); Calcium,Total 8.4 mg/dL (8.5-10.1); Chloride 105 mmol/L (98-107); Creatinine, Serum 2.23 mg/dL (0.70-1.30); EST Glomerular Filtration Rate 31 mL/min (>60); Est Glom Filt Rate - Afr Amer 37 mL/min (>60); Glucose 190 mg/dL (74-106); Magnesium 2.1 mg/dL (1.6-2.6); Potassium 3.6 mmol/L (3.5-5.1); Sodium Level 140 mmol/L (136-145)
== END ==
LOC: OLS.SWAL 05:00
PROVIDERS: PCP Internal Medicine; Referring Provider Internal Medicine; Visit Provider Internal Medicine
DX: E87.5 Hyperkalemia (principal)
CPT/HCPCS: 36415; 80048; 83735

== ENCOUNTER → 2021-02-07 05:00 | Outpatient (REF) | payer MEDICARE, MEDICAID, SELFPAY ==
[2021-02-07 08:41] LABS: Hematocrit 36.7 % (40-54); Mean Corp Hgb Conc 32.7 g/dL (32-36); Mean Corpuscular Hgb 32.3 pg (27.0-32.0); Mean Corpuscular Volume 98.7 fL (80-94); Mean Platelet Vol. 11.4 fl (6.2-12.0); Platelet Count 198 K/mm3 (150-450); RBC Distribution Width CV 13.1 % (11.6-14.6); RBC Distribution Width SD 46.9 fl (35.1-43.9); Red Blood Count 3.72 M/mm3 (4.6-6.2); White Blood Count 8.4 K/mm3 (4.4-11.0)
[2021-02-07 08:57] LABS: ALB/GLOB Ratio 0.7 RATIO (0.9-2.4); AST(SGOT) 17 U/L (15-37); Alanine Aminotransfer ALT/SGPT 21 U/L (16-61); Albumin, Serum 2.6 g/dL (3.2-5.0); Alkaline Phosphatase 84 U/L (45-117); Anion Gap 3 (5-15); BUN 31 mg/dL (7-18); BUN/Creat Ratio 13.7 RATIO (10-20); Calcium,Total 8.2 mg/dL (8.5-10.1); Chloride 106 mmol/L (98-107); Creatinine, Serum 2.26 mg/dL (0.70-1.30); EST Glomerular Filtration Rate 30 mL/min (>60); Est Glom Filt Rate - Afr Amer 37 mL/min (>60); Globulin 3.9 g/dL (2.2-4.2); Glucose 156 mg/dL (74-106); Magnesium 2.1 mg/dL (1.6-2.6); Protein, Total 6.5 g/dL (6.4-8.2); Sodium Level 137 mmol/L (136-145); Uric Acid 6.3 mg/dL (3.5-7.2)
[2021-02-07 08:58] LABS: Protein, Urine (Random) 302.4 mg/dL (<11.9); Protein:Creat Ratio 4326 mg/g CRE (0-200)
[2021-02-07 09:02] LABS: PTHIN 146.7 pg/mL (18.4-80.1)
== END ==
LOC: OLS.SWAL 05:00
PROVIDERS: PCP Internal Medicine; Visit Provider Internal Medicine
DX: E87.5 Hyperkalemia (principal); E11.22 Type 2 diabetes mellitus with diabetic chronic kidney disease; N18.9 Chronic kidney disease, unspecified; M10.9 Gout, unspecified
CPT/HCPCS: 36415; 80053; 82570; 83735; 83970; 84156; 84550; 85027

== ENCOUNTER → 2021-02-21 05:00 | Outpatient (REF) | payer MEDICARE, MEDICAID, SELFPAY ==
[2021-02-21 07:26] LABS: Hematocrit 37.3 % (40-54); Hemoglobin 12.1 g/dL (13.0-16.5); Mean Corp Hgb Conc 32.4 g/dL (32-36); Mean Corpuscular Hgb 32.1 pg (27.0-32.0); Mean Corpuscular Volume 98.9 fL (80-94); Mean Platelet Vol. 11.1 fl (6.2-12.0); Platelet Count 259 K/mm3 (150-450); RBC Distribution Width CV 13.1 % (11.6-14.6); RBC Distribution Width SD 47.3 fl (35.1-43.9); Red Blood Count 3.77 M/mm3 (4.6-6.2); White Blood Count 9.4 K/mm3 (4.4-11.0)
[2021-02-21 07:40] LABS: Anion Gap 6 (5-15); BUN 30 mg/dL (7-18); BUN/Creat Ratio 12.7 RATIO (10-20); Calcium,Total 8.3 mg/dL (8.5-10.1); Chloride 105 mmol/L (98-107); Creatinine, Serum 2.36 mg/dL (0.70-1.30); EST Glomerular Filtration Rate 29 mL/min (>60); Est Glom Filt Rate - Afr Amer 35 mL/min (>60); Glucose 147 mg/dL (74-106); Potassium 3.8 mmol/L (3.5-5.1); Sodium Level 137 mmol/L (136-145)
== END ==
LOC: OLS.SWAL 05:00
PROVIDERS: PCP Internal Medicine; Visit Provider Internal Medicine
DX: E87.5 Hyperkalemia (principal)
CPT/HCPCS: 36415; 80048; 83735; 85027

== ENCOUNTER → 2021-03-07 05:00 | Outpatient (REF) | payer MEDICARE, MEDICAID, SELFPAY ==
[2021-03-07 09:24] LABS: Hematocrit 34.5 % (40-54); Hemoglobin 11.3 g/dL (13.0-16.5); Mean Corp Hgb Conc 32.8 g/dL (32-36); Mean Corpuscular Hgb 32.4 pg (27.0-32.0); Mean Corpuscular Volume 98.9 fL (80-94); Mean Platelet Vol. 11.8 fl (6.2-12.0); Platelet Count 221 K/mm3 (150-450); RBC Distribution Width CV 13.1 % (11.6-14.6); RBC Distribution Width SD 47.7 fl (35.1-43.9); Red Blood Count 3.49 M/mm3 (4.6-6.2); White Blood Count 8.3 K/mm3 (4.4-11.0)
[2021-03-07 09:43] LABS: Anion Gap 4 (5-15); BUN 32 mg/dL (7-18); BUN/Creat Ratio 13.5 RATIO (10-20); Calcium,Total 8.3 mg/dL (8.5-10.1); Chloride 106 mmol/L (98-107); Creatinine, Serum 2.37 mg/dL (0.70-1.30); EST Glomerular Filtration Rate 29 mL/min (>60); Est Glom Filt Rate - Afr Amer 35 mL/min (>60); Glucose 144 mg/dL (74-106); Magnesium 2.1 mg/dL (1.6-2.6); Potassium 4.1 mmol/L (3.5-5.1); Sodium Level 139 mmol/L (136-145)
== END ==
LOC: OLS.SWAL 05:00
PROVIDERS: PCP Internal Medicine; Visit Provider Internal Medicine
DX: E87.5 Hyperkalemia (principal); N18.30 Chronic kidney disease, stage 3 unspecified
CPT/HCPCS: 36415; 80048; 83735; 85027

== ENCOUNTER → 2021-03-11 07:00 | Outpatient (REF) | payer MEDICARE, MEDICAID, SELFPAY ==
[2021-03-11 09:01] LABS: Hemoglobin A1c 6.2 % (3.8-5.6); International Normalized Ratio 1.2; Prothrombin Time (Protime)PT. 14.1 SECONDS (11.7-14.9)
[2021-03-11 09:12] LABS: ALB/GLOB Ratio 0.5 RATIO (0.9-2.4); AST(SGOT) 18 U/L (15-37); Alanine Aminotransfer ALT/SGPT 20 U/L (16-61); Albumin, Serum 2.3 g/dL (3.2-5.0); Alkaline Phosphatase 88 U/L (45-117); Anion Gap 6 (5-15); BUN 27 mg/dL (7-18); BUN/Creat Ratio 11.7 RATIO (10-20); Bilirubin, Direct 0.09 mg/dL (0.00-0.30); Calcium,Total 8.6 mg/dL (8.5-10.1); Chloride 104 mmol/L (98-107); EST Glomerular Filtration Rate 30 mL/min (>60); Est Glom Filt Rate - Afr Amer 36 mL/min (>60); Globulin 4.8 g/dL (2.2-4.2); Glucose 87 mg/dL (74-106); Magnesium 2.1 mg/dL (1.6-2.6); Phosphorus 3.5 mg/dL (2.5-4.9); Potassium 4.2 mmol/L (3.5-5.1); Protein, Total 7.1 g/dL (6.4-8.2); Sodium Level 138 mmol/L (136-145); Thyroid Stim Hormone (TSH) 1.13 uIU/mL (0.358-3.74)
== END ==
LOC: OLS.SWAL 07:00
PROVIDERS: PCP Internal Medicine; Visit Provider Internal Medicine
DX: E11.22 Type 2 diabetes mellitus with diabetic chronic kidney disease (principal); N18.30 Chronic kidney disease, stage 3 unspecified; E03.9 Hypothyroidism, unspecified; Z94.4 Liver transplant status
CPT/HCPCS: 36415; 80053; 82248; 83036; 83735; 84100; 84443; 85610; 85730

== ENCOUNTER 2021-03-14 05:58 | Day surgery (SDC) | payer MEDICARE, MEDICAID, SELFPAY ==
[2021-03-14] VITALS (8 sets, daily range): BP systolic 116–139; BP diastolic 72–93; PULSE 83–101; RESP 16–20; TEMP 36.2–37.2; O2SAT 91–100; BMI 38.9
[2021-03-14] MEDS: Lactated Ringers 1,000 ML 100 ML IV (06:55)
[2021-03-14] MEDS: Cefazolin 2 GM in 0.9% Normal Saline 100 ML IV (07:29)
[2021-03-14 07:31] LABS: Bedside Glucose 77 mg/dL (70-110)
[2021-03-14] MEDS: Bupivacaine Mpf 0.5% 30 ML VIAL (08:52)
[2021-03-14] MEDS: Lidocaine 1% (30 ml sdv) 30 ML Vial (08:52)
--- NOTE | 2021-03-14 09:24 | PCM.DC ---
Discharge Instructions Diet Discharge Diet: No restrictions Activity Discharge Activity: May Not Drive and May Shower May resume sexual activity in: No Restrictions and 1 week Weight Bearing Status: Weight bearing as tolerated Keep extremity elevated above heart level: Operative Extremity Dressing / Incision Call your doctor if your incision/area has: Continuous Slow Oozing, Sudden Increased Bleeding, Increased Pain/ Swelling, Increased Redness, Foul Smelling Discharge and Swelling at the incision site Call your doctor if you observe: Fever of 101 or Higher, Coldness, Increased Pain, Shortness of breath, Chest pain, Calf discomfort and Uncontrolled pain Change Dressing in: 3 days Follow Up Care Please Follow Up With: Bacilio Mcleod DO When: 2 weeks Test Results: Test results from this visit will be discussed in further detail at your follow-up appointment, if applicable. Discharge Plan Admission Primary Reason for Your Visit: right thumb CMC arthroplasty Attending Provider: Bacilio Mcleod Primary Care Provider: Tasia Joyner Instructions Additional Instructions / Restrictions: Maintain splint until follow-up, keep it clean dry and intact. Nonweightbearing right hand Ice and elevate for the next 10 days Discharge Orders/Prescriptions Prescriptions: New oxycodone 5 mg capsule 5 mg PO Q6H PRN (Reason: pain) 7 Days Qty: 28 RF: 0 Continued levothyroxine 75 MCG tablet 75 mcg PO DAILY RF: 0 tacrolimus 1 MG capsule 0.5 mg PO BID RF: 0 pantoprazole 40 MG tablet 40 mg PO MOWEFR RF: 0 bupropion HCl 150 MG tablet sustained-release 12 hr 150 mg PO BID RF: 0 allopurinol 100 MG tablet 100 mg PO DAILY RF: 0 gabapentin 100 MG capsule 100 mg PO TIDCM RF: 0 multivit with ajr-GW-gqualuul 1 EACH tablet 1 tablet PO DAILY RF: 0 Tamsulosin Hcl 0.4 MG capsule 0.4 mg PO BID RF: 0 ketoconazole 120 ML shampoo 1 applic TP TUFR RF: 0 sertraline 100 MG tablet 100 mg PO DAILY RF: 0 clobetasol 15 GM cream 15 gm TP BID RF: 0 sulfamethoxazole-trimethoprim 1 EACH tablet 1 tab PO MOWEFR RF: 0 aspirin 81 MG tablet,delayed release (DR/EC) 81 mg PO DAILY@0800 RF: 0 amlodipine 10 MG tablet 10 mg PO DAILY RF: 0 ergocalciferol (vitamin D2) 50,000 UNIT capsule 50,000 unit PO MO RF: 0 loratadine 10 MG tablet 10 mg PO DAILY RF: 0 insulin glargine 100 UNIT/ML insulin pen 28 unit SQ 0800 RF: 0 magnesium oxide 400 MG tablet 400 mg PO TID RF: 0 ipratropium-albuterol 0.5 mg-3 mg(2.5 mg base)/3 mL Solution For Nebulization 3 ml INHALATION Q6H PRN (Reason: scalp) RF: 0 zolpidem 5 mg Tablet 5 mg PO QHS PRN (Reason: Insomnia) RF: 0 fluticasone propionate [Flonase Allergy Relief] 50 mcg/actuation [place],Suspension 2 spray INTRANASAL DAILY RF: 0 lisinopril 2.5 mg Tablet 2.5 mg PO DAILY RF: 0 amino ac-protein hydr-whey pro 10-100 gram-kcal/30 mL Liquid 30 ml PO DAILY RF: 0 Trulicity 3 mg/0.5 mL Pen Injector 3 mg SUBCUT MO RF: 0 furosemide 40 MG tablet 40 mg PO DAILY RF: 0 diclofenac sodium [Voltaren Arthritis Pain] 1 % Gel 1 g TOPICAL Q6H PRN PRN (Reason: GOUT PAIN) RF: 0 sennosides [senna] 8.6 mg Tablet 8.6 mg PO DAILY RF: 0 Referrals / Follow Up: Tasia Joyner MD [Primary Care Provider] - Bacilio Mcleod DO [STAFF PHYSICIAN] - Within 2 Weeks Disposition Disposition (needs filled in before D/C Order can be placed): Home, Self Care
[2021-03-14 09:36] LABS: Bedside Glucose 91 mg/dL (70-110)
--- NOTE | 2021-03-14 09:42 | OP.PCM_ITS ---
Problems Associated Problem List Diagnoses (1) Arthritis of carpometacarpal (CMC) joint of right thumb: Report of Operation Date of Procedure: 03/14/21 Description of Surgical Findings:: Preoperative diagnosis: Right first carpal metacarpal joint arthritis Postoperative diagnosis: Right first carpal metacarpal joint arthritis Procedure: Right thumb trapeziectomy with ligament reconstruction tendon interposition with flexor carpi radialis tendon transfer Surgeon: Bacilio Mcleod DO Edging Machine Feeder: None Anesthesia: General endotracheal Anesthesiologist: Dr. Abbott Complications: None Drains: None Estimated blood loss: 10 cc Urinary output: None measured IV fluids: 900 cc crystalloid Specimens: None Surgical implants: Arthrex 4 mm x 10 mm Bio-Tenodesis screw Surgical indications: This is a 75-year-old male seen in the outpatient setting diagnosed with a right basal joint arthritis of his first CMC. He failed nonoperative management. Due to diabetes and history of liver transplant, a trial of corticosteroid injection was deferred. He had end-stage arthritis on x- ray with dorsal and radial subluxation of the first metacarpal base. He had no hyperextension deformity of his metacarpal phalangeal joint of the thumb. Right first carpometacarpal joint arthroplasty in the form trapeziectomy with ligament reconstruction tendon interposition with flexor carpi radialis tendon transfer was offered. The risk, benefits, alternatives to procedure were reviewed with patient at length in the outpatient setting and he agreed to proceed. Risks included but were not limited to bleeding, infection, loss of life or limb, risk of anesthesia, subsidence of metacarpal base, persistent pain, need for additional surgery, stiffness, loss of hand function, neurovascular injury. Patient expressed understanding wish to proceed with surgery. Description of procedure: Patient was seen in preoperative holding area. He was identified by name, medical record number, date of . The operative extremity was marked with a surgical marker. We confirmed informed consent with the patient and all questions were answered to his satisfaction. At time of his procedure, patient was brought to the operative suite and positioned supine a standard operating table. All bony prominences were well- padded. General anesthesia was induced and endotracheal tube placed. The right upper extremity was then prepped for surgery by first applying a well-padded p neumatic tourniquet to the right upper arm. The hand table attached to the right side of the table. We spun the bed 90 degrees. The right upper extremities then prepped and draped in normal, sterile orthopedic fashion. 2 g Ancef was administered prior to incision by anesthesia staff. We performed a timeout at this point confirming side, site, and operation to be performed. No concerns voiced and elected to proceed. We first exsanguinated the right upper extremity with a an Esmarch bandage. Tourniquet was inflated to 250 mmHg were made up throughout the majority of the case. I first made my incision overlying the anatomic snuffbox of the right dorsal first CMC. Incision was carried sharply through skin and subcutaneous tissue. Superficial veins were cauterized. Superficial sensory branches from the radial nerve were protected and retracted. We bluntly dissected through the fascia down to the level of the dorsal branch of the radial artery. I retracted this dorsally after cauterizing capsular branches from the radial artery using bipolar cautery. We then identified the dorsal radial capsule of the first CMC. This was split in line with the incision and elevated subperiosteally. The trapezium was then freed from capsular attachment sharply with 15 blade scalpel and subsequently with a McGlamry elevator. We were able to free the trapezium circumferentially and excised the trapezium en bloc. This was examined and had severe degenerative changes on the distal articular surface at the first CMC. The trapezoid was examined and appeared unremarkable. The FCR was identified in the wound. The wound was copiously irrigated with normal saline and any loose pieces of cartilage were debrided. I then turned my attention to the flexor carpi radialis and the right mid to distal forearm. A transverse incision approximately 5 mm was made overlying the flexor carpi radialis tendon. Superficial vein was identified and cauterized with bipolar cautery. I was then able to bluntly dissect through the tendon sheath down the level of the tendon. A Ragnell retractor was placed underneath the tendon and the tendon was pulled out of the wound. Sharply transected the tendon at the level of the incision. I then used a right angle hemostat to retrieve the flexor carpi radialis tendon from the distal wound. I split the flexor carpi radialis tendon in line with its fibers to obtain 2 distinct limbs. One limb was tagged in whipstitch fashion with a #2 Ethibond for transfer for our planned tendon transfer. I then prepared our bone tunnel for transfer. A drill pin was utilized to drill dorsal radial to ulnar ulnar across the base of the first metacarpal. My entry point was approximately 1 cm from the articular surface. This was directed to the insertion point of the [place] ligament. Proper trajectory was confirmed. FCR was protected through the drilling process with a McGlamry elevator. A cannulated drill bit was then placed over top of the drill pin and drilled bicortically. A nitinol wire was used to past the suture tack to the FCR tendon slip through the bone tunnel retrieving out the dorsoradial portion. I then applied a abduction force across the base the first metacarpal and placed it with my index finger in the space of the former trapezium with appropriate tension. My speech therapy assistant pulled some traction on the thumb. I pulled traction on the slip of the FCR and the Arthrex Bio-Tenodesis screw was then placed to secure the tendon. Minimal amount of shock and no significant subsidence was noted after the tendon was secured. I then placed a running stitch through both slips of the tendon securing it to the palmar first CMC wrist capsule. Suture was tightened achieving an accordion configuration of the remaining FCR tendon to achieve an interposition graft. We then deflated the tourniquet. Hemostasis was excellent. I closed the capsule in watertight fashion with an 0 Vicryl suture. Subcutaneous layers were reapproximated with 3-0 Vicryl in a running subcuticular Monocryl. A field block was administered with 10 cc 0.5% plain Marcaine: 1% plain lidocaine 50: 50 mixture. Dermabond was used to finally reapproximate skin. Sterile compression dressing was applied. A well-padded thumb spica fiberglass splint was then applied. Patient tolerated procedure well without apparent complication. He was subsequently extubated and transferred to PACU in stable condition. Intraoperative medications: 10 cc 0.5% plain Marcaine: 1% plain lidocaine 50: 50 mixture 2 g Ancef administered by anesthesia prior to incision Post Operative Plan: Weightbearing: Nonweightbearing operative extremity Antibiotics: Ancef 2 g x 1 dose preoperatively DVT Prophylaxis: Restart home baby aspirin tomorrow Castellon: None Dressing: Maintain splint, keep it clean dry and intact until follow-up X-Rays: 2 weeks postop in the office Pain Medication: Oxycodone Rx upon discharge Follow-up: 2 weeks post-operatively with me in the office
[2021-03-14] MEDS: Oxymetazoline 0.05% 1 SPRAY SPRAY.BTL 2 SPRAY NASAL (09:59)
== END 2021-03-14 11:05 | disposition home or self-care (01) ==
LOC: SDC 06:04 → AC 06:07
PROVIDERS: PCP Internal Medicine; Visit Provider Student in an Organized Health Care Education/Training Program
PROC: (CPT 25447; principal; 2021-03-14 07:15)
DX: M18.11 Unilateral primary osteoarthritis of first carpometacarpal joint, right hand (principal); M10.9 Gout, unspecified; J44.9 Chronic obstructive pulmonary disease, unspecified; F32.9 Major depressive disorder, single episode, unspecified; I12.9 Hypertensive chronic kidney disease with stage 1 through stage 4 chronic kidney disease, or unspecified chronic kidney disease; E11.22 Type 2 diabetes mellitus with diabetic chronic kidney disease; N18.30 Chronic kidney disease, stage 3 unspecified; K21.9 Gastro-esophageal reflux disease without esophagitis; Z94.4 Liver transplant status; Z87.891 Personal history of nicotine dependence; E66.8 Other obesity; Z68.38 Body mass index [BMI] 38.0-38.9, adult; Z79.4 Long term (current) use of insulin; Z79.899 Other long term (current) drug therapy; Z99.81 Dependence on supplemental oxygen
CPT/HCPCS: 25310; 25447; 82962; C1713; J7120; J2405

== ENCOUNTER → 2021-03-15 14:20 | Outpatient (REF) | payer MEDICARE, MEDICAID, SELFPAY ==
[2021-03-15 15:26] LABS: BNP,B-Type NATRIURETIC PEPTIDE 274.3 pg/mL (0-100)
== END ==
LOC: OLS.SWAL 14:20
PROVIDERS: PCP Internal Medicine; Visit Provider Internal Medicine
DX: J44.9 Chronic obstructive pulmonary disease, unspecified (principal); R06.02 Shortness of breath
CPT/HCPCS: 36415; 83880

== ENCOUNTER → 2021-03-21 05:00 | Outpatient (REF) | payer MEDICARE, MEDICAID, SELFPAY ==
[2021-03-21 09:11] LABS: Hematocrit 34.2 % (40-54); Hemoglobin 10.9 g/dL (13.0-16.5); Mean Corp Hgb Conc 31.9 g/dL (32-36); Mean Corpuscular Hgb 31.6 pg (27.0-32.0); Mean Corpuscular Volume 99.1 fL (80-94); Mean Platelet Vol. 10.8 fl (6.2-12.0); Platelet Count 330 K/mm3 (150-450); RBC Distribution Width CV 12.8 % (11.6-14.6); RBC Distribution Width SD 45.8 fl (35.1-43.9); Red Blood Count 3.45 M/mm3 (4.6-6.2); White Blood Count 8.8 K/mm3 (4.4-11.0)
[2021-03-21 09:23] LABS: Anion Gap 7 (5-15); BUN 32 mg/dL (7-18); BUN/Creat Ratio 12.9 RATIO (10-20); Calcium,Total 8.6 mg/dL (8.5-10.1); Chloride 103 mmol/L (98-107); Creatinine, Serum 2.49 mg/dL (0.70-1.30); EST Glomerular Filtration Rate 27 mL/min (>60); Est Glom Filt Rate - Afr Amer 33 mL/min (>60); Glucose 101 mg/dL (74-106); Magnesium 2.2 mg/dL (1.6-2.6); Potassium 4.2 mmol/L (3.5-5.1); Sodium Level 136 mmol/L (136-145)
== END ==
LOC: OLS.SWAL 05:00
PROVIDERS: PCP Internal Medicine; Visit Provider Internal Medicine
DX: E87.5 Hyperkalemia (principal)
CPT/HCPCS: 36415; 80048; 83735; 85027

== ENCOUNTER → 2021-04-04 05:00 | Outpatient (REF) | payer MEDICARE, MEDICAID, SELFPAY ==
[2021-04-04 07:50] LABS: Hematocrit 34.7 % (40-54); Hemoglobin 11.3 g/dL (13.0-16.5); Mean Corp Hgb Conc 32.6 g/dL (32-36); Mean Corpuscular Hgb 31.6 pg (27.0-32.0); Mean Corpuscular Volume 96.9 fL (80-94); Mean Platelet Vol. 10.2 fl (6.2-12.0); Platelet Count 348 K/mm3 (150-450); RBC Distribution Width CV 12.7 % (11.6-14.6); RBC Distribution Width SD 45.7 fl (35.1-43.9); Red Blood Count 3.58 M/mm3 (4.6-6.2); White Blood Count 9.3 K/mm3 (4.4-11.0)
[2021-04-04 08:01] LABS: Anion Gap 7 (5-15); BUN 35 mg/dL (7-18); BUN/Creat Ratio 13.1 RATIO (10-20); Calcium,Total 8.9 mg/dL (8.5-10.1); Chloride 103 mmol/L (98-107); Creatinine, Serum 2.68 mg/dL (0.70-1.30); EST Glomerular Filtration Rate 25 mL/min (>60); Est Glom Filt Rate - Afr Amer 30 mL/min (>60); Glucose 105 mg/dL (74-106); Potassium 4.6 mmol/L (3.5-5.1); Sodium Level 138 mmol/L (136-145)
[2021-04-08 04:46] LABS: Cholesterol 164 mg/dL (200); High Density Lipoprotein 35 mg/dL; Triglycerides 162 mg/dL; Very Low Density Lipoprotein 32 mg/dL (5-40)
== END ==
LOC: OLS.SWAL 05:00
PROVIDERS: PCP Internal Medicine; Visit Provider Internal Medicine
DX: E78.49 Other hyperlipidemia (principal); Z48.23 Encounter for aftercare following liver transplant; Z94.4 Liver transplant status
CPT/HCPCS: 36415; 80048; 80061; 83735; 85027

== ENCOUNTER → 2021-04-11 05:00 | Outpatient (REF) | payer MEDICARE, MEDICAID, SELFPAY ==
[2021-04-11 09:22] LABS: Prograf-FK506 TO CCF/UNIV MAILED SPECIMEN
== END ==
LOC: OLS.SWAL 05:00
PROVIDERS: PCP Internal Medicine
DX: K76.9 Liver disease, unspecified (principal); Z48.23 Encounter for aftercare following liver transplant
CPT/HCPCS: 36415

== ENCOUNTER → 2021-04-18 05:00 | Outpatient (REF) | payer MEDICARE, MEDICAID, SELFPAY ==
[2021-04-18 07:51] LABS: Hematocrit 33.5 % (40-54); Hemoglobin 11.3 g/dL (13.0-16.5); Mean Corp Hgb Conc 33.7 g/dL (32-36); Mean Corpuscular Hgb 31.9 pg (27.0-32.0); Mean Corpuscular Volume 94.6 fL (80-94); Mean Platelet Vol. 10.8 fl (6.2-12.0); Platelet Count 235 K/mm3 (150-450); RBC Distribution Width CV 13.5 % (11.6-14.6); RBC Distribution Width SD 46.8 fl (35.1-43.9); Red Blood Count 3.54 M/mm3 (4.6-6.2); White Blood Count 9.8 K/mm3 (4.4-11.0)
[2021-04-18 08:16] LABS: Anion Gap 7 (5-15); BUN 36 mg/dL (7-18); BUN/Creat Ratio 13.8 RATIO (10-20); Calcium,Total 8.3 mg/dL (8.5-10.1); Chloride 105 mmol/L (98-107); Creatinine, Serum 2.61 mg/dL (0.70-1.30); EST Glomerular Filtration Rate 26 mL/min (>60); Est Glom Filt Rate - Afr Amer 31 mL/min (>60); Glucose 108 mg/dL (74-106); Magnesium 2.1 mg/dL (1.6-2.6); Potassium 3.9 mmol/L (3.5-5.1); Sodium Level 137 mmol/L (136-145)
== END ==
LOC: OLS.SWAL 05:00
PROVIDERS: PCP Internal Medicine; Visit Provider Internal Medicine
DX: E87.5 Hyperkalemia (principal)
CPT/HCPCS: 36415; 80048; 83735; 85027

== ENCOUNTER → 2021-05-02 05:00 | Outpatient (REF) | payer MEDICARE, MEDICAID, SELFPAY ==
[2021-05-02 07:28] LABS: Hematocrit 33.3 % (40-54); Hemoglobin 11.1 g/dL (13.0-16.5); Mean Corp Hgb Conc 33.3 g/dL (32-36); Mean Corpuscular Hgb 30.8 pg (27.0-32.0); Mean Corpuscular Volume 92.5 fL (80-94); Mean Platelet Vol. 10.4 fl (6.2-12.0); Platelet Count 278 K/mm3 (150-450); RBC Distribution Width CV 13.6 % (11.6-14.6); White Blood Count 9.7 K/mm3 (4.4-11.0)
[2021-05-02 07:57] LABS: Anion Gap 6 (5-15); BUN 40 mg/dL (7-18); BUN/Creat Ratio 14.1 RATIO (10-20); Calcium,Total 8.7 mg/dL (8.5-10.1); Chloride 103 mmol/L (98-107); Creatinine, Serum 2.83 mg/dL (0.70-1.30); EST Glomerular Filtration Rate 23 mL/min (>60); Est Glom Filt Rate - Afr Amer 28 mL/min (>60); Glucose 97 mg/dL (74-106); Magnesium 2.4 mg/dL (1.6-2.6); Sodium Level 137 mmol/L (136-145)
== END ==
LOC: OLS.SWAL 05:00
PROVIDERS: PCP Internal Medicine; Visit Provider Internal Medicine
DX: E87.5 Hyperkalemia (principal)
CPT/HCPCS: 36415; 80048; 83735; 85027

== ENCOUNTER → 2021-05-14 05:00 | Outpatient (REF) | payer MEDICARE, MEDICAID, SELFPAY ==
[2021-05-14 09:46] LABS: Hematocrit 33.8 % (40-54); Hemoglobin 11.1 g/dL (13.0-16.5); Mean Corp Hgb Conc 32.8 g/dL (32-36); Mean Corpuscular Hgb 30.7 pg (27.0-32.0); Mean Corpuscular Volume 93.4 fL (80-94); Mean Platelet Vol. 10.4 fl (6.2-12.0); Platelet Count 280 K/mm3 (150-450); RBC Distribution Width CV 13.9 % (11.6-14.6); RBC Distribution Width SD 47.4 fl (35.1-43.9); Red Blood Count 3.62 M/mm3 (4.6-6.2); White Blood Count 10.6 K/mm3 (4.4-11.0)
[2021-05-14 10:05] LABS: Anion Gap 6 (5-15); BUN 38 mg/dL (7-18); BUN/Creat Ratio 14.7 RATIO (10-20); Calcium,Total 8.6 mg/dL (8.5-10.1); Chloride 104 mmol/L (98-107); Cholesterol 156 mg/dL (200); Creatinine, Serum 2.59 mg/dL (0.70-1.30); EST Glomerular Filtration Rate 26 mL/min (>60); Est Glom Filt Rate - Afr Amer 31 mL/min (>60); Glucose 112 mg/dL (74-106); High Density Lipoprotein 40 mg/dL; Sodium Level 137 mmol/L (136-145); Triglycerides 124 mg/dL; Very Low Density Lipoprotein 25 mg/dL (5-40)
[2021-05-14 10:33] LABS: Hemoglobin A1c 6.2 % (3.8-5.6)
== END ==
LOC: OLS.SWAL 05:00
PROVIDERS: PCP Internal Medicine; Visit Provider Internal Medicine
DX: E11.22 Type 2 diabetes mellitus with diabetic chronic kidney disease (principal); I12.9 Hypertensive chronic kidney disease with stage 1 through stage 4 chronic kidney disease, or unspecified chronic kidney disease; N18.30 Chronic kidney disease, stage 3 unspecified; E66.9 Obesity, unspecified
CPT/HCPCS: 36415; 80048; 80061; 83036; 85027

== ENCOUNTER → 2021-05-28 05:00 | Outpatient (REF) | payer MEDICARE, MEDICAID, SELFPAY ==
[2021-05-28 08:09] LABS: Anion Gap 8 (5-15); BUN 36 mg/dL (7-18); BUN/Creat Ratio 14.2 RATIO (10-20); Calcium,Total 8.4 mg/dL (8.5-10.1); Chloride 107 mmol/L (98-107); Creatinine, Serum 2.54 mg/dL (0.70-1.30); EST Glomerular Filtration Rate 26 mL/min (>60); Est Glom Filt Rate - Afr Amer 32 mL/min (>60); Glucose 124 mg/dL (74-106); Hematocrit 34.4 % (40-54); Hemoglobin 11.2 g/dL (13.0-16.5); Mean Corp Hgb Conc 32.6 g/dL (32-36); Mean Corpuscular Hgb 30.6 pg (27.0-32.0); Mean Platelet Vol. 10.6 fl (6.2-12.0); Platelet Count 287 K/mm3 (150-450); Potassium 4.2 mmol/L (3.5-5.1); RBC Distribution Width CV 14.5 % (11.6-14.6); RBC Distribution Width SD 49.9 fl (35.1-43.9); Red Blood Count 3.66 M/mm3 (4.6-6.2); Sodium Level 140 mmol/L (136-145); White Blood Count 8.6 K/mm3 (4.4-11.0)
== END ==
LOC: OLS.SWAL 05:00
PROVIDERS: PCP Internal Medicine; Visit Provider Internal Medicine
DX: E87.5 Hyperkalemia (principal)
CPT/HCPCS: 36415; 80048; 85027

== ENCOUNTER → 2021-06-10 04:00 | Outpatient (REF) | payer MEDICARE, MEDICAID, SELFPAY ==
[2021-06-10 07:19] LABS: Uric Acid 5.1 mg/dL (3.5-7.2)
== END ==
LOC: OLS.SWAL 04:00
PROVIDERS: PCP Internal Medicine; Visit Provider Internal Medicine
DX: M10.9 Gout, unspecified (principal)
CPT/HCPCS: 36415; 84550

== ENCOUNTER → 2021-07-11 04:00 | Outpatient (REF) | payer MEDICARE, MEDICAID, SELFPAY ==
[2021-07-11 08:27] LABS: Prograf-FK506 TO CCF/UNIV MAILED SPECIMEN
[2021-07-11 08:31] LABS: Cholesterol 190 mg/dL (200); High Density Lipoprotein 53 mg/dL; Triglycerides 97 mg/dL; Very Low Density Lipoprotein 19 mg/dL (5-40)
== END ==
LOC: OLS.SWAL 04:00
PROVIDERS: PCP Internal Medicine; Visit Provider Internal Medicine
DX: K76.9 Liver disease, unspecified (principal); Z94.4 Liver transplant status
CPT/HCPCS: 36415; 80061; 99213; G0463

== ENCOUNTER 2021-07-29 05:00 | Outpatient (REF) | payer MEDICARE, MEDICAID, SELFPAY ==
[2021-07-29 08:20] LABS: Anion Gap 5 (5-15); BUN 38 mg/dL (7-18); BUN/Creat Ratio 14.4 RATIO (10-20); Calcium,Total 8.3 mg/dL (8.5-10.1); Chloride 106 mmol/L (98-107); Creatinine, Serum 2.64 mg/dL (0.70-1.30); EST Glomerular Filtration Rate 25 mL/min (>60); Est Glom Filt Rate - Afr Amer 31 mL/min (>60); Glucose 121 mg/dL (74-106); Potassium 4.2 mmol/L (3.5-5.1); Sodium Level 139 mmol/L (136-145)
[2021-07-30 12:26] LABS: MG Sendout 1.8 mg/dL (1.6-2.3)
== END 2021-07-29 23:59 | disposition home or self-care (01) ==
LOC: OLS.SWAL 05:00
PROVIDERS: PCP Internal Medicine; Visit Provider Internal Medicine
DX: E11.22 Type 2 diabetes mellitus with diabetic chronic kidney disease (principal); N18.30 Chronic kidney disease, stage 3 unspecified; R60.9 Edema, unspecified
CPT/HCPCS: 36415; 80048; 83735

== ENCOUNTER → 2021-08-09 | Outpatient (REF) | payer MEDICARE, MEDICAID, SELFPAY ==
[2021-08-09 07:25] LABS: Anion Gap 4 (5-15); BUN 38 mg/dL (7-18); BUN/Creat Ratio 12.7 RATIO (10-20); Calcium,Total 8.4 mg/dL (8.5-10.1); Chloride 106 mmol/L (98-107); Creatinine, Serum 2.99 mg/dL (0.70-1.30); EST Glomerular Filtration Rate 22 mL/min (>60); Est Glom Filt Rate - Afr Amer 26 mL/min (>60); Glucose 112 mg/dL (74-106); Magnesium 1.9 mg/dL (1.6-2.6); Potassium 4.2 mmol/L (3.5-5.1); Sodium Level 138 mmol/L (136-145)
== END | disposition home or self-care (01) ==
LOC: OLS.SWAL 05:00
PROVIDERS: PCP Internal Medicine; Visit Provider Internal Medicine
DX: I12.9 Hypertensive chronic kidney disease with stage 1 through stage 4 chronic kidney disease, or unspecified chronic kidney disease (principal); N18.30 Chronic kidney disease, stage 3 unspecified
CPT/HCPCS: 36415; 80048; 83735

== ENCOUNTER 2021-08-12 04:00 | Outpatient (REF) | payer MEDICARE, MEDICAID, SELFPAY ==
[2021-08-12 09:05] LABS: Hematocrit 33.8 % (40-54); Mean Corp Hgb Conc 32.5 g/dL (32-36); Mean Corpuscular Hgb 31.2 pg (27.0-32.0); Mean Corpuscular Volume 95.8 fL (80-94); Mean Platelet Vol. 11.5 fl (6.2-12.0); Platelet Count 236 K/mm3 (150-450); RBC Distribution Width CV 14.4 % (11.6-14.6); RBC Distribution Width SD 50.3 fl (35.1-43.9); Red Blood Count 3.53 M/mm3 (4.6-6.2); White Blood Count 8.3 K/mm3 (4.4-11.0)
[2021-08-12 09:22] LABS: ALB/GLOB Ratio 0.5 RATIO (0.9-2.4); AST(SGOT) 15 U/L (15-37); Alanine Aminotransfer ALT/SGPT 17 U/L (16-61); Albumin, Serum 2.3 g/dL (3.2-5.0); Alkaline Phosphatase 88 U/L (45-117); Anion Gap 4 (5-15); BUN 38 mg/dL (7-18); BUN/Creat Ratio 13.3 RATIO (10-20); Calcium,Total 8.2 mg/dL (8.5-10.1); Chloride 107 mmol/L (98-107); Creatinine, Serum 2.85 mg/dL (0.70-1.30); EST Glomerular Filtration Rate 23 mL/min (>60); Est Glom Filt Rate - Afr Amer 28 mL/min (>60); Globulin 4.7 g/dL (2.2-4.2); Glucose 90 mg/dL (74-106); Potassium 4.4 mmol/L (3.5-5.1); Sodium Level 139 mmol/L (136-145)
[2021-08-12 09:38] LABS: Protein, Urine (Random) 243.8 mg/dL (<11.9); Protein:Creat Ratio 5791 mg/g CRE (0-200)
== END 2021-08-12 23:59 | disposition home or self-care (01) ==
LOC: OLS.SWAL 04:00
PROVIDERS: PCP Internal Medicine
DX: E11.22 Type 2 diabetes mellitus with diabetic chronic kidney disease (principal); N18.9 Chronic kidney disease, unspecified
CPT/HCPCS: 36415; 80053; 82570; 84156; 85027

== ENCOUNTER 2021-08-16 04:00 | Outpatient (REF) | payer MEDICARE, MEDICAID, SELFPAY ==
[2021-08-16 07:02] LABS: Anion Gap 4 (5-15); BUN 43 mg/dL (7-18); BUN/Creat Ratio 14.8 RATIO (10-20); Calcium,Total 8.6 mg/dL (8.5-10.1); Chloride 103 mmol/L (98-107); Creatinine, Serum 2.91 mg/dL (0.70-1.30); EST Glomerular Filtration Rate 23 mL/min (>60); Est Glom Filt Rate - Afr Amer 27 mL/min (>60); Glucose 112 mg/dL (74-106); Magnesium 2.2 mg/dL (1.6-2.6); Potassium 4.2 mmol/L (3.5-5.1); Sodium Level 136 mmol/L (136-145)
== END 2021-08-16 23:59 | disposition home or self-care (01) ==
LOC: OLS.SWAL 04:00
PROVIDERS: PCP Internal Medicine; Visit Provider Internal Medicine
DX: I12.9 Hypertensive chronic kidney disease with stage 1 through stage 4 chronic kidney disease, or unspecified chronic kidney disease (principal); N18.4 Chronic kidney disease, stage 4 (severe)
CPT/HCPCS: 36415; 80048; 83735

== ENCOUNTER 2021-08-23 04:00 | Outpatient (REF) | payer MEDICARE, MEDICAID, SELFPAY ==
[2021-08-23 06:42] LABS: Anion Gap 3 (5-15); BUN 45 mg/dL (7-18); Calcium,Total 8.4 mg/dL (8.5-10.1); Chloride 105 mmol/L (98-107); Creatinine, Serum 3.01 mg/dL (0.70-1.30); EST Glomerular Filtration Rate 22 mL/min (>60); Est Glom Filt Rate - Afr Amer 26 mL/min (>60); Glucose 115 mg/dL (74-106); Magnesium 2.1 mg/dL (1.6-2.6); Potassium 4.1 mmol/L (3.5-5.1); Sodium Level 136 mmol/L (136-145)
== END 2021-08-23 23:59 | disposition home or self-care (01) ==
LOC: OLS.SWAL 04:00
PROVIDERS: PCP Internal Medicine; Visit Provider Internal Medicine
DX: I12.9 Hypertensive chronic kidney disease with stage 1 through stage 4 chronic kidney disease, or unspecified chronic kidney disease (principal); N18.30 Chronic kidney disease, stage 3 unspecified; E78.5 Hyperlipidemia, unspecified
CPT/HCPCS: 36415; 80048; 83735

== ENCOUNTER → 2021-08-30 | Outpatient (REF) | payer MEDICARE, MEDICAID, SELFPAY ==
[2021-08-30 08:05] LABS: Anion Gap 4 (5-15); BUN 37 mg/dL (7-18); BUN/Creat Ratio 12.8 RATIO (10-20); Calcium,Total 8.6 mg/dL (8.5-10.1); Chloride 106 mmol/L (98-107); EST Glomerular Filtration Rate 23 mL/min (>60); Est Glom Filt Rate - Afr Amer 27 mL/min (>60); Glucose 149 mg/dL (74-106); Magnesium 1.7 mg/dL (1.6-2.6); Potassium 4.1 mmol/L (3.5-5.1); Sodium Level 138 mmol/L (136-145)
== END | disposition home or self-care (01) ==
LOC: OLS.SWAL 05:00
PROVIDERS: PCP Internal Medicine; Visit Provider Internal Medicine
DX: I12.9 Hypertensive chronic kidney disease with stage 1 through stage 4 chronic kidney disease, or unspecified chronic kidney disease (principal); N18.30 Chronic kidney disease, stage 3 unspecified
CPT/HCPCS: 36415; 80048; 83735

== ENCOUNTER 2021-09-06 04:00 | Outpatient (REF) | payer MEDICARE, MEDICAID, SELFPAY ==
[2021-09-06 07:33] LABS: Anion Gap 3 (5-15); BUN 39 mg/dL (7-18); BUN/Creat Ratio 12.3 RATIO (10-20); Calcium,Total 8.6 mg/dL (8.5-10.1); Chloride 108 mmol/L (98-107); Creatinine, Serum 3.17 mg/dL (0.70-1.30); EST Glomerular Filtration Rate 20 mL/min (>60); Est Glom Filt Rate - Afr Amer 25 mL/min (>60); Glucose 138 mg/dL (74-106); Potassium 4.9 mmol/L (3.5-5.1); Sodium Level 139 mmol/L (136-145)
== END 2021-09-06 23:59 | disposition home or self-care (01) ==
LOC: OLS.SWAL 04:00
PROVIDERS: PCP Internal Medicine; Visit Provider Internal Medicine
DX: I12.9 Hypertensive chronic kidney disease with stage 1 through stage 4 chronic kidney disease, or unspecified chronic kidney disease (principal); N18.30 Chronic kidney disease, stage 3 unspecified
CPT/HCPCS: 36415; 80048

== ENCOUNTER → 2021-09-13 | Outpatient (REF) | payer MEDICARE, MEDICAID, SELFPAY ==
[2021-09-13 07:10] LABS: Anion Gap 3 (5-15); BUN 51 mg/dL (7-18); BUN/Creat Ratio 15.2 RATIO (10-20); Calcium,Total 8.6 mg/dL (8.5-10.1); Chloride 105 mmol/L (98-107); Creatinine, Serum 3.35 mg/dL (0.70-1.30); EST Glomerular Filtration Rate 19 mL/min (>60); Est Glom Filt Rate - Afr Amer 23 mL/min (>60); Glucose 155 mg/dL (74-106); Potassium 4.8 mmol/L (3.5-5.1); Sodium Level 137 mmol/L (136-145)
== END | disposition home or self-care (01) ==
LOC: OLS.SWAL 05:00
PROVIDERS: PCP Internal Medicine; Visit Provider Internal Medicine
DX: I12.9 Hypertensive chronic kidney disease with stage 1 through stage 4 chronic kidney disease, or unspecified chronic kidney disease (principal); N18.30 Chronic kidney disease, stage 3 unspecified
CPT/HCPCS: 36415; 80048; 83735

== ENCOUNTER → 2021-09-20 | Outpatient (REF) | payer MEDICARE, MEDICAID, SELFPAY ==
[2021-09-20 07:51] LABS: Anion Gap 2 (5-15); BUN 41 mg/dL (7-18); BUN/Creat Ratio 13.9 RATIO (10-20); Calcium,Total 8.6 mg/dL (8.5-10.1); Chloride 104 mmol/L (98-107); Creatinine, Serum 2.95 mg/dL (0.70-1.30); EST Glomerular Filtration Rate 22 mL/min (>60); Est Glom Filt Rate - Afr Amer 27 mL/min (>60); Glucose 132 mg/dL (74-106); Magnesium 2.3 mg/dL (1.6-2.6); Potassium 4.5 mmol/L (3.5-5.1); Sodium Level 134 mmol/L (136-145)
== END | disposition home or self-care (01) ==
LOC: OLS.SWAL 05:00
PROVIDERS: PCP Internal Medicine; Visit Provider Internal Medicine
DX: I12.9 Hypertensive chronic kidney disease with stage 1 through stage 4 chronic kidney disease, or unspecified chronic kidney disease (principal); N18.30 Chronic kidney disease, stage 3 unspecified
CPT/HCPCS: 36415; 80048; 83735

== ENCOUNTER → 2021-09-27 | Outpatient (REF) | payer MEDICARE, MEDICAID, SELFPAY ==
[2021-09-27 09:14] LABS: Anion Gap 2 (5-15); BUN 41 mg/dL (7-18); Calcium,Total 8.3 mg/dL (8.5-10.1); Chloride 108 mmol/L (98-107); Creatinine, Serum 3.15 mg/dL (0.70-1.30); EST Glomerular Filtration Rate 21 mL/min (>60); Est Glom Filt Rate - Afr Amer 25 mL/min (>60); Glucose 84 mg/dL (74-106); Magnesium 1.9 mg/dL (1.6-2.6); Potassium 4.9 mmol/L (3.5-5.1); Sodium Level 137 mmol/L (136-145)
== END | disposition home or self-care (01) ==
LOC: OLS.SWAL 05:00
PROVIDERS: PCP Internal Medicine; Visit Provider Internal Medicine
DX: I12.9 Hypertensive chronic kidney disease with stage 1 through stage 4 chronic kidney disease, or unspecified chronic kidney disease (principal); N18.30 Chronic kidney disease, stage 3 unspecified
CPT/HCPCS: 36415; 80048; 83735

== ENCOUNTER → 2021-10-04 | Outpatient (REF) | payer MEDICARE, MEDICAID, SELFPAY ==
[2021-10-04 07:33] LABS: Anion Gap 6 (5-15); BUN 46 mg/dL (7-18); BUN/Creat Ratio 14.6 RATIO (10-20); Calcium,Total 8.2 mg/dL (8.5-10.1); Chloride 105 mmol/L (98-107); Creatinine, Serum 3.16 mg/dL (0.70-1.30); EST Glomerular Filtration Rate 21 mL/min (>60); Est Glom Filt Rate - Afr Amer 25 mL/min (>60); Glucose 94 mg/dL (74-106); Magnesium 2.1 mg/dL (1.6-2.6); Potassium 4.4 mmol/L (3.5-5.1); Sodium Level 137 mmol/L (136-145)
== END | disposition home or self-care (01) ==
LOC: OLS.SWAL 05:00
PROVIDERS: PCP Internal Medicine; Visit Provider Internal Medicine
DX: I12.9 Hypertensive chronic kidney disease with stage 1 through stage 4 chronic kidney disease, or unspecified chronic kidney disease (principal); N18.30 Chronic kidney disease, stage 3 unspecified
CPT/HCPCS: 36415; 80048; 83735

== ENCOUNTER → 2021-10-08 | Outpatient (REF) | payer MEDICARE, MEDICAID, SELFPAY ==
[2021-10-08 07:38] LABS: Hemoglobin 11.6 g/dL (13.0-16.5); Mean Corp Hgb Conc 33.1 g/dL (32-36); Mean Corpuscular Hgb 31.9 pg (27.0-32.0); Mean Corpuscular Volume 96.2 fL (80-94); Platelet Count 240 K/mm3 (150-450); RBC Distribution Width CV 13.7 % (11.6-14.6); RBC Distribution Width SD 49.1 fl (35.1-43.9); Red Blood Count 3.64 M/mm3 (4.6-6.2); White Blood Count 8.9 K/mm3 (4.4-11.0)
[2021-10-08 08:01] LABS: Albumin, Serum 2.6 g/dL (3.2-5.0); BUN 44 mg/dL (7-18); BUN/Creat Ratio 13.8 RATIO (10-20); Calcium,Total 8.7 mg/dL (8.5-10.1); Chloride 104 mmol/L (98-107); Creatinine, Serum 3.19 mg/dL (0.70-1.30); EST Glomerular Filtration Rate 20 mL/min (>60); Est Glom Filt Rate - Afr Amer 25 mL/min (>60); Glucose 117 mg/dL (74-106); Magnesium 2.3 mg/dL (1.6-2.6); Phosphorus 3.1 mg/dL (2.5-4.9); Potassium 4.8 mmol/L (3.5-5.1); Sodium Level 135 mmol/L (136-145)
[2021-10-08 08:24] LABS: Protein:Creat Ratio 5627 mg/g CRE (0-200)
[2021-10-08 09:03] LABS: PTHIN 211.4 pg/mL (18.4-80.1)
== END | disposition home or self-care (01) ==
LOC: OLS.SWAL 05:00
PROVIDERS: PCP Internal Medicine; Visit Provider Internal Medicine
DX: N18.30 Chronic kidney disease, stage 3 unspecified (principal)
CPT/HCPCS: 36415; 80069; 82306; 82570; 83735; 83970; 84156; 85027

== ENCOUNTER → 2021-10-11 | Outpatient (REF) | payer MEDICARE, SELFPAY ==
[2021-10-11 07:46] LABS: BUN 41 mg/dL (7-18); Creatinine, Serum 3.34 mg/dL (0.70-1.30); EST Glomerular Filtration Rate 19 mL/min (>60); Glucose 110 mg/dL (74-106)
[2021-10-11 07:47] LABS: Anion Gap 3 (5-15); BUN/Creat Ratio 12.3 RATIO (10-20); Calcium,Total 8.7 mg/dL (8.5-10.1); Chloride 105 mmol/L (98-107); Est Glom Filt Rate - Afr Amer 23 mL/min (>60); Magnesium 2.5 mg/dL (1.6-2.6); Potassium 4.6 mmol/L (3.5-5.1); Sodium Level 135 mmol/L (136-145)
== END | disposition home or self-care (01) ==
LOC: OLS.SWAL 05:00
PROVIDERS: PCP Internal Medicine; Referring Provider Internal Medicine; Visit Provider Internal Medicine
DX: I12.9 Hypertensive chronic kidney disease with stage 1 through stage 4 chronic kidney disease, or unspecified chronic kidney disease (principal); N18.30 Chronic kidney disease, stage 3 unspecified
CPT/HCPCS: 36415; 80048; 83735

== ENCOUNTER → 2021-10-14 | Outpatient (REF) | payer MEDICARE, MEDICAID, SELFPAY ==
[2021-10-14 10:18] LABS: Absolute Lymphocyte Count 1.66 X10^3/uL (0.83-4.51); Absolute Neutrophil Count 5.8 X10^3/uL (2.0-7.7); Basophil# 0.05 X10^3/uL; Basophil% 0.6 % (0-1); Eosinophil# 0.56 X10^3/uL; Eosinophils% 6.3 % (0-5); Hematocrit 37.8 % (40-54); Hemoglobin 12.3 g/dL (13.0-16.5); Lymphocyte # 1.66 X10^3/ul (0.83-4.51); Lymphocyte % 18.6 % (19-41); Mean Corp Hgb Conc 32.5 g/dL (32-36); Mean Corpuscular Hgb 31.9 pg (27.0-32.0); Mean Corpuscular Volume 98.2 fL (80-94); Mean Platelet Vol. 11.2 fl (6.2-12.0); Monocyte# 0.85 X10^3/uL; Monocyte% 9.5 % (0-10); NRBC Flagged by Analyzer 0 % (0-5); Neutrophil # 5.76 X10^3/uL (2.7-7.7); Neutrophil % 64.4 % (47-70); Platelet Count 239 K/mm3 (150-450); RBC Distribution Width CV 13.6 % (11.6-14.6); RBC Distribution Width SD 49.3 fl (35.1-43.9); Red Blood Count 3.85 M/mm3 (4.6-6.2); White Blood Count 8.9 K/mm3 (4.4-11.0)
[2021-10-14 10:50] LABS: ALB/GLOB Ratio 0.6 RATIO (0.9-2.4); AST(SGOT) 17 U/L (15-37); Alanine Aminotransfer ALT/SGPT 19 U/L (16-61); Alkaline Phosphatase 95 U/L (45-117); Anion Gap 6 (5-15); BUN 45 mg/dL (7-18); BUN/Creat Ratio 13.2 RATIO (10-20); Calcium,Total 8.4 mg/dL (8.5-10.1); Chloride 104 mmol/L (98-107); Cholesterol 198 mg/dL (200); Creatinine, Serum 3.41 mg/dL (0.70-1.30); EST Glomerular Filtration Rate 19 mL/min (>60); Est Glom Filt Rate - Afr Amer 23 mL/min (>60); GGTP 23 U/L (15-85); Globulin 4.8 g/dL (2.2-4.2); Glucose 106 mg/dL (74-106); High Density Lipoprotein 50 mg/dL; Magnesium 2.5 mg/dL (1.6-2.6); Phosphorus 3.7 mg/dL (2.5-4.9); Potassium 4.4 mmol/L (3.5-5.1); Protein, Total 7.8 g/dL (6.4-8.2); Sodium Level 137 mmol/L (136-145); Triglycerides 84 mg/dL; Very Low Density Lipoprotein 17 mg/dL (5-40)
[2021-10-14 11:03] LABS: Prograf-FK506 TO CCF/UNIV MAILED SPECIMEN
== END | disposition home or self-care (01) ==
LOC: OLS.SWAL 05:00
PROVIDERS: PCP Internal Medicine; Visit Provider Internal Medicine
DX: K76.9 Liver disease, unspecified (principal); Z48.23 Encounter for aftercare following liver transplant; Z94.4 Liver transplant status; E61.2 Magnesium deficiency; E83.30 Disorder of phosphorus metabolism, unspecified; R73.02 Impaired glucose tolerance (oral); Z41.8 Encounter for other procedures for purposes other than remedying health state
CPT/HCPCS: 36415; 80053; 80061; 82977; 83735; 84100; 85025

== ENCOUNTER → 2021-10-18 | Outpatient (REF) | payer MEDICARE, MEDICAID, SELFPAY ==
[2021-10-18 06:58] LABS: Anion Gap 3 (5-15); BUN 48 mg/dL (7-18); BUN/Creat Ratio 14.3 RATIO (10-20); Calcium,Total 8.4 mg/dL (8.5-10.1); Chloride 105 mmol/L (98-107); Creatinine, Serum 3.35 mg/dL (0.70-1.30); EST Glomerular Filtration Rate 19 mL/min (>60); Est Glom Filt Rate - Afr Amer 23 mL/min (>60); Glucose 106 mg/dL (74-106); Magnesium 2.6 mg/dL (1.6-2.6); Potassium 4.4 mmol/L (3.5-5.1); Sodium Level 136 mmol/L (136-145)
== END | disposition home or self-care (01) ==
LOC: OLS.SWAL 05:00
PROVIDERS: PCP Internal Medicine; Visit Provider Internal Medicine
DX: I12.9 Hypertensive chronic kidney disease with stage 1 through stage 4 chronic kidney disease, or unspecified chronic kidney disease (principal); N18.30 Chronic kidney disease, stage 3 unspecified
CPT/HCPCS: 36415; 80048; 83735

== ENCOUNTER → 2021-10-24 | Outpatient (REF) | payer MEDICARE, MEDICAID, SELFPAY ==
[2021-10-24 06:37] LABS: Albumin, Serum 2.8 g/dL (3.2-5.0); BUN 38 mg/dL (7-18); BUN/Creat Ratio 12.1 RATIO (10-20); Calcium,Total 8.9 mg/dL (8.5-10.1); Chloride 107 mmol/L (98-107); Creatinine, Serum 3.15 mg/dL (0.70-1.30); EST Glomerular Filtration Rate 21 mL/min (>60); Est Glom Filt Rate - Afr Amer 25 mL/min (>60); Glucose 77 mg/dL (74-106); Phosphorus 3.9 mg/dL (2.5-4.9); Potassium 4.7 mmol/L (3.5-5.1); Sodium Level 140 mmol/L (136-145)
[2021-10-24 06:40] LABS: Protein, Urine (Random) 133.6 mg/dL (<11.9); Protein:Creat Ratio 6423 mg/g CRE (0-200)
== END | disposition home or self-care (01) ==
LOC: OLS.SWAL 05:00
PROVIDERS: PCP Internal Medicine
DX: N18.30 Chronic kidney disease, stage 3 unspecified (principal); N40.0 Benign prostatic hyperplasia without lower urinary tract symptoms
CPT/HCPCS: 36415; 80069; 82570; 84156

== ENCOUNTER → 2021-10-25 | Outpatient (REF) | payer MEDICARE, SELFPAY | END | disposition home or self-care (01) | LOC: OLS.SWAL 05:00 | PROVIDERS: PCP Internal Medicine; Visit Provider Internal Medicine | DX: I12.9 Hypertensive chronic kidney disease with stage 1 through stage 4 chronic kidney disease, or unspecified chronic kidney disease (principal); N18.30 Chronic kidney disease, stage 3 unspecified | CPT/HCPCS: 83735 ==

== ENCOUNTER → 2021-11-01 | Outpatient (REF) | payer MEDICARE, MEDICAID, SELFPAY ==
[2021-11-01 09:01] LABS: Anion Gap 6 (5-15); BUN 49 mg/dL (7-18); BUN/Creat Ratio 13.7 RATIO (10-20); Calcium,Total 8.5 mg/dL (8.5-10.1); Chloride 104 mmol/L (98-107); Creatinine, Serum 3.57 mg/dL (0.70-1.30); EST Glomerular Filtration Rate 18 mL/min (>60); Est Glom Filt Rate - Afr Amer 22 mL/min (>60); Glucose 174 mg/dL (74-106); Magnesium 1.9 mg/dL (1.6-2.6); Potassium 4.3 mmol/L (3.5-5.1); Sodium Level 136 mmol/L (136-145)
== END | disposition home or self-care (01) ==
LOC: OLS.SWAL 05:00
PROVIDERS: PCP Internal Medicine; Visit Provider Internal Medicine
DX: I12.9 Hypertensive chronic kidney disease with stage 1 through stage 4 chronic kidney disease, or unspecified chronic kidney disease (principal); N18.30 Chronic kidney disease, stage 3 unspecified
CPT/HCPCS: 36415; 80048; 83735

== ENCOUNTER → 2021-11-08 | Outpatient (REF) | payer MEDICARE, MEDICAID, SELFPAY ==
[2021-11-08 09:18] LABS: Anion Gap 5 (5-15); BUN 51 mg/dL (7-18); BUN/Creat Ratio 14.5 RATIO (10-20); Calcium,Total 8.7 mg/dL (8.5-10.1); Chloride 105 mmol/L (98-107); Creatinine, Serum 3.51 mg/dL (0.70-1.30); EST Glomerular Filtration Rate 18 mL/min (>60); Est Glom Filt Rate - Afr Amer 22 mL/min (>60); Glucose 116 mg/dL (74-106); Magnesium 2.6 mg/dL (1.6-2.6); Potassium 4.3 mmol/L (3.5-5.1); Sodium Level 136 mmol/L (136-145)
== END | disposition home or self-care (01) ==
LOC: OLS.SWAL 05:00
PROVIDERS: PCP Internal Medicine; Visit Provider Internal Medicine
DX: I12.9 Hypertensive chronic kidney disease with stage 1 through stage 4 chronic kidney disease, or unspecified chronic kidney disease (principal); N18.30 Chronic kidney disease, stage 3 unspecified
CPT/HCPCS: 36415; 80048; 83735

== ENCOUNTER → 2021-11-15 | Outpatient (REF) | payer MEDICARE, MEDICAID, SELFPAY ==
[2021-11-15 09:23] LABS: Anion Gap 5 (5-15); BUN 52 mg/dL (7-18); BUN/Creat Ratio 14.4 RATIO (10-20); Calcium,Total 8.4 mg/dL (8.5-10.1); Chloride 105 mmol/L (98-107); Creatinine, Serum 3.61 mg/dL (0.70-1.30); EST Glomerular Filtration Rate 18 mL/min (>60); Est Glom Filt Rate - Afr Amer 21 mL/min (>60); Glucose 185 mg/dL (74-106); Magnesium 2.3 mg/dL (1.6-2.6); Potassium 4.4 mmol/L (3.5-5.1); Sodium Level 137 mmol/L (136-145)
== END | disposition home or self-care (01) ==
LOC: OLS.SWAL 05:00
PROVIDERS: PCP Internal Medicine; Visit Provider Internal Medicine
DX: I12.9 Hypertensive chronic kidney disease with stage 1 through stage 4 chronic kidney disease, or unspecified chronic kidney disease (principal); N18.30 Chronic kidney disease, stage 3 unspecified
CPT/HCPCS: 36415; 80048; 83735

== ENCOUNTER → 2021-11-21 | Outpatient (REF) | payer MEDICARE, MEDICAID, SELFPAY ==
[2021-11-21 09:56] LABS: Albumin, Serum 2.5 g/dL (3.2-5.0); BUN 45 mg/dL (7-18); BUN/Creat Ratio 12.9 RATIO (10-20); Calcium,Total 8.5 mg/dL (8.5-10.1); Chloride 102 mmol/L (98-107); EST Glomerular Filtration Rate 18 mL/min (>60); Est Glom Filt Rate - Afr Amer 22 mL/min (>60); Glucose 178 mg/dL (74-106); Phosphorus 3.7 mg/dL (2.5-4.9); Sodium Level 137 mmol/L (136-145)
[2021-11-22 04:33] LABS: BNP,B-Type NATRIURETIC PEPTIDE 116.5 pg/mL (0-100)
== END | disposition home or self-care (01) ==
LOC: OLS.SWAL 05:00
PROVIDERS: PCP Internal Medicine
DX: E11.22 Type 2 diabetes mellitus with diabetic chronic kidney disease (principal); N18.30 Chronic kidney disease, stage 3 unspecified; Z94.4 Liver transplant status
CPT/HCPCS: 36415; 80069; 83880

== ENCOUNTER → 2021-12-05 | Outpatient (REF) | payer MEDICARE, MEDICAID, SELFPAY ==
[2021-12-05 07:34] LABS: Anion Gap 5 (5-15); BUN 55 mg/dL (7-18); BUN/Creat Ratio 15.3 RATIO (10-20); Calcium,Total 8.7 mg/dL (8.5-10.1); Chloride 104 mmol/L (98-107); Creatinine, Serum 3.59 mg/dL (0.70-1.30); EST Glomerular Filtration Rate 18 mL/min (>60); Est Glom Filt Rate - Afr Amer 21 mL/min (>60); Glucose 170 mg/dL (74-106); Potassium 4.7 mmol/L (3.5-5.1); Sodium Level 136 mmol/L (136-145)
== END | disposition home or self-care (01) ==
LOC: OLS.SWAL 04:00
PROVIDERS: PCP Internal Medicine
DX: N18.30 Chronic kidney disease, stage 3 unspecified (principal)
CPT/HCPCS: 36415; 80048

== ENCOUNTER → 2021-12-19 | Outpatient (REF) | payer MEDICARE, MEDICAID, SELFPAY ==
[2021-12-19 08:58] LABS: Albumin, Serum 2.5 g/dL (3.2-5.0); BUN 45 mg/dL (7-18); BUN/Creat Ratio 11.6 RATIO (10-20); Calcium,Total 8.5 mg/dL (8.5-10.1); Chloride 105 mmol/L (98-107); Creatinine, Serum 3.89 mg/dL (0.70-1.30); EST Glomerular Filtration Rate 16 mL/min (>60); Est Glom Filt Rate - Afr Amer 20 mL/min (>60); Glucose 136 mg/dL (74-106); Phosphorus 2.8 mg/dL (2.5-4.9); Potassium 4.9 mmol/L (3.5-5.1); Sodium Level 136 mmol/L (136-145)
== END | disposition home or self-care (01) ==
LOC: OLS.SWAL 04:00
PROVIDERS: PCP Internal Medicine
DX: N28.9 Disorder of kidney and ureter, unspecified (principal); N40.0 Benign prostatic hyperplasia without lower urinary tract symptoms
CPT/HCPCS: 36415; 80069

== ENCOUNTER → 2021-12-24 04:00 | Outpatient (REF) | payer MEDICARE, MEDICAID, SELFPAY ==
[2021-12-24 08:36] LABS: Anion Gap 4 (5-15); BUN 36 mg/dL (7-18); BUN/Creat Ratio 11.9 RATIO (10-20); Calcium,Total 8.7 mg/dL (8.5-10.1); Chloride 105 mmol/L (98-107); Creatinine, Serum 3.02 mg/dL (0.70-1.30); EST Glomerular Filtration Rate 22 mL/min (>60); Est Glom Filt Rate - Afr Amer 26 mL/min (>60); Glucose 121 mg/dL (74-106); Potassium 4.6 mmol/L (3.5-5.1); Sodium Level 136 mmol/L (136-145)
== END ==
LOC: OLS.SWAL 04:00
PROVIDERS: PCP Internal Medicine
DX: N17.9 Acute kidney failure, unspecified (principal)
CPT/HCPCS: 36415; 80048

== ENCOUNTER → 2022-01-13 04:00 | Outpatient (REF) | payer MEDICARE, MEDICAID, SELFPAY ==
[2022-01-13 08:36] LABS: Hematocrit 34.4 % (40-54); Hemoglobin 11.2 g/dL (13.0-16.5); Mean Corp Hgb Conc 32.6 g/dL (32-36); Mean Corpuscular Volume 98.3 fL (80-94); Mean Platelet Vol. 10.8 fl (6.2-12.0); Platelet Count 254 K/mm3 (150-450); RBC Distribution Width CV 13.4 % (11.6-14.6); RBC Distribution Width SD 48.1 fl (35.1-43.9); White Blood Count 8.2 K/mm3 (4.4-11.0)
[2022-01-13 08:51] LABS: Hemoglobin A1c 5.7 % (3.8-5.6)
[2022-01-13 09:07] LABS: ALB/GLOB Ratio 0.4 RATIO (0.9-2.4); AST(SGOT) 17 U/L (15-37); Alanine Aminotransfer ALT/SGPT 13 U/L (16-61); Albumin, Serum 2.1 g/dL (3.2-5.0); Alkaline Phosphatase 89 U/L (45-117); Anion Gap 6 (5-15); BUN 39 mg/dL (7-18); Bilirubin, Direct < 0.05 mg/dL (0.00-0.30); Calcium,Total 8.5 mg/dL (8.5-10.1); Chloride 104 mmol/L (98-107); Cholesterol 161 mg/dL (200); Creatinine, Serum 3.53 mg/dL (0.70-1.30); EST Glomerular Filtration Rate 18 mL/min (>60); Est Glom Filt Rate - Afr Amer 22 mL/min (>60); Glucose 120 mg/dL (74-106); High Density Lipoprotein 36 mg/dL; Potassium 3.9 mmol/L (3.5-5.1); Protein, Total 7.1 g/dL (6.4-8.2); Sodium Level 137 mmol/L (136-145); Triglycerides 148 mg/dL; Very Low Density Lipoprotein 30 mg/dL (5-40)
[2022-01-13 09:17] LABS: PTHIN 238.4 pg/mL (18.4-80.1)
[2022-01-13 09:21] LABS: Vitamin D,25 Hydroxy 36.3 ng/mL
[2022-01-13 09:34] LABS: 24HR. UA Prot. Total Volume 2000 mL; Creat.Clear Total Volume 2000 mL; Creatinine Clearance 25 ml/min (100-200); Creatinine Serum Creat 3.5 mg/dL (0.8-1.3); Creatinine Urine 64.2 mg/dL (NO RANGE EST.); EST Glomerular Filtration Rate 18 mL/min (>60); Est Glom Filt Rate - Afr Amer 22 mL/min (>60)
[2022-01-13 09:35] LABS: Urine Protein (24 Hour) 419.5 mg/dL (<11.9)
[2022-01-14 09:48] LABS: Microalbumin:Creatinine Ratio 4848.5 mg/g CRE (<30 mg/g CRE)
== END ==
LOC: OLS.SWAL 04:00
PROVIDERS: PCP Internal Medicine; Referring Provider Internal Medicine
DX: I12.9 Hypertensive chronic kidney disease with stage 1 through stage 4 chronic kidney disease, or unspecified chronic kidney disease (principal); E11.22 Type 2 diabetes mellitus with diabetic chronic kidney disease; N28.9 Disorder of kidney and ureter, unspecified; E87.5 Hyperkalemia; E78.00 Pure hypercholesterolemia, unspecified; Z94.4 Liver transplant status; N18.30 Chronic kidney disease, stage 3 unspecified
CPT/HCPCS: 36415; 80053; 80061; 82043; 82248; 82306; 82570; 82575; 83036; 83970; 84156; 85027

== ENCOUNTER 2022-02-17 14:30 | Outpatient (RCR) | payer MEDICARE, MEDICAID, SELFPAY ==
[2022-02-06 10:34] VITALS: BP 171/111; PULSE 117; RESP 18; TEMP 36.3
[2022-02-06 11:01] VITALS: BMI 37.1
--- NOTE | 2022-02-06 21:38 | HP.PCM_ITS ---
History of Present Illness Date of Service: 02/06/22 Chief Complaint: Bilateral lower extremity pain, redness and swelling. History of Wound: This is a 76 year-old white male who presents to the wound healing center today due to non healing bilateral lower extremity lesions. He states that his concerns have been present for over a year. Was seen at the wound center with no significant improvement and he was subsequently sent to see a Information Receptionist. He states that he was seen weekly and had a Zinc oxide wrap placed again without any improvement. His main concerns are bilateral lower extremity, rash, itching, irritation, redness and swelling. He was sent by his PCP to [facility] where he was seen by ID. He states that he was placed on IV antibiotics but again, he states that he does not believe it made any difference. He denies chills, fever or otherwise feeling of unwell. [facility] Medical History (Updated 02/07/22 @ 10:[address] Mendy Quintana MD) Abdominal pain [id number] kidney injury Alcohol abuse Alcohol abuse following liver transplant Alcohol withdrawal Arthritis Chronic dermatitis Cirrhosis COPD exacerbation Depression Diabetes mellitus Dyspnea Encephalopathy Former smoker Gout History of anxiety History of CHF (congestive heart failure) History of echocardiogram History of IBS History of renal disease History of skin cancer History of ulceration HTN (hypertension) Hypokalemia Hypoxia Infected ulcer of skin Insulin dependent diabetes mellitus Macular degeneration Nausea & vomiting Non-healing non-surgical wound On home oxygen therapy Rash Shortness of breath on exertion Superficial ulcer of skin Thyroid disease Urticaria Venous insufficiency Venous insufficiency of both lower extremities Walker as ambulation aid Wears glasses Home Medications levothyroxine 75 mcg tablet 75 mcg PO DAILY thyroid 11/19/13 [History Last Taken 08/30/20] tacrolimus 1 mg capsule, immediate-release 0.5 mg PO BID transplant med 06/09/16 [History Last Taken 08/30/20] pantoprazole 40 mg tablet,delayed release 40 mg PO MOWEFR gerd 09/07/17 [History Last Taken 08/29/20] Tamsulosin Hcl 0.4 mg PO BID CKD III 07/07/19 [History Last Taken 08/30/20] allopurinol 100 mg tablet 100 mg PO DAILY Gout 07/07/19 [History Last Taken 08/29/20] bupropion HCl 150 mg tablet,12 hr sustained-release 150 mg PO BID major depressive disorder 07/07/19 [History Last Taken 08/30/20] multivit with minerals-folic acid-lycopene 0.4 mg-600 mcg tablet 1 tablet PO DAILY supplement 07/07/19 [History Last Taken 08/30/20] aspirin 81 mg tablet,delayed release 81 mg PO DAILY@0800 heart health 08/30/20 [History Last Taken 08/30/20] clobetasol 0.05 % topical cream 15 gm TP BID itching 08/30/20 [History Last Taken 08/30/20] ergocalciferol (vitamin D2) 1,250 mcg (50,000 unit) capsule 50,000 unit PO MO supplement 08/30/20 [History Last Taken 08/20/20] ketoconazole 2 % shampoo 1 applic TP MOWEFR dry scalp 08/30/20 [History Last Taken 08/28/20] magnesium oxide 400 mg PO TID supplement 08/30/20 [History Last Taken 08/30/20] sertraline 100 mg tablet 100 mg PO DAILY depression 08/30/20 [History Last Taken 08/29/20] sulfamethoxazole 800 mg-trimethoprim 160 mg tablet 1 tab PO MOWEFR preventitive 08/30/20 [History Last Taken 08/29/20] dulaglutide 3 mg/0.5 mL subcutaneous pen injector (Trulicity) 3 mg subcut MO DM II 03/11/21 [History Last Taken Unknown] fluticasone propionate 50 mcg/actuation nasal spray,suspension (Flonase Allergy Relief) 2 spray intranasal DAILY allergies 03/11/21 [History Last Taken Unknown] ipratropium 0.5 mg-albuterol 3 mg (2.5 mg base)/3 mL nebulization soln 3 ml inhalation Q6H PRN Wheezing 03/11/21 [History Last Taken Unknown] sennosides 8.6 mg tablet (senna) 8.6 mg PO DAILY constipation 03/11/21 [History Last Taken Unknown] zolpidem 5 mg tablet 5 mg PO QHS PRN Insomnia 03/11/21 [History Last Taken Unknown] acetaminophen 500 mg tablet 500 mg PO Q6H PRN Pain 02/06/22 [History Last Taken Unknown] bisacodyl 10 mg rectal suppository 10 mg ME Q18H PRN Constipation 02/06/22 [History Last Taken Unknown] calcium carbonate 200 mg calcium (500 mg) chewable tablet (Tums) mg PO Q18H PRN Indigestion 02/06/22 [History Last Taken Unknown] cetirizine 10 mg capsule (Zyrtec) 10 mg PO DAILY 02/06/22 [History Last Taken Unknown] docusate sodium 100 mg capsule (Colace) 100 mg PO DAILY PRN Constipation 02/06/22 [History Last Taken Unknown] finerenone 10 mg tablet (Kerendia) 10 mg PO DAILY 02/06/22 [History Last Taken Unknown] furosemide 20 mg tablet (Lasix) 20 mg PO DAILY 02/06/22 [History Last Taken Unknown] insulin glargine 100 unit/mL (3 mL) subcutaneous pen (Lantus Solostar U-100 Insulin) 28 unit subcut DAILY 02/06/22 [History Last Taken Unknown] loperamide 2 mg capsule (Imodium A-D) 2 mg PO Q6H PRN Diarrhea 02/06/22 [History Last Taken Unknown] magnesium hydroxide 400 mg/5 mL oral suspension (Milk of Magnesia) 30 ml PO DAILY PRN Constipation 02/06/22 [History Last Taken Unknown] menthol 4 % topical gel (Biofreeze (menthol)) 1 applic topical BID PRN Pain 02/06/22 [History Last Taken Unknown] miconazole nitrate 2 % topical cream 1 applic topical QHS 02/06/22 [History Last Taken Unknown] Allergy/AdvReac Type Severity Reaction Status Date / Time cortisone [Cortisone] Allergy Angioedema Verified 03/08/21 14:02 Penicillins Allergy Unknown Verified 02/06/22 10:58 Surgical History History of esophagogastroduodenoscopy (EGD) History of excision of pilonidal cyst History of knee surgery History of parathyroid surgery History of tonsillectomy Liver transplanted Social History Smoking Status: Former smoker ROS Constitutional Constitutional: Denies fatigue, fever(s), frequent falls, headache(s), increased appetite, lethargy or malaise Eyes Eyes: Denies diplopia, discharge from eye(s), erythema, excessive blinking, exophthalmos, eye pain, floaters, foreign body or halo effect ENT HEENT: Denies facial pain, hoarseness, lip swelling, loss taste/smell, mouth lesions, mucositis or nasal congestion Cardiovascular Cardiovascular: Reports edema and erythema on extremities; Denies chest pain with activity, clubbing, cold extremities, cyanosis or dyspnea at rest Respiratory/Chest Respiratory/Chest: Denies chest tightness, cough, difficulty clearing secretions, dry cough, dusky skin, dyspnea, dyspnea on exertion or excessive phlegm production Gastrointestinal Gastrointestinal: Denies belching, bloating, change in stool character, chewing difficulty, coffee ground emesis, constipation or dysphagia Genitourinary Genitourinary: Denies abdominal discomfort, itching, penile swelling, polyuria, scrotal pain or testicular mass Musculoskeletal Musculoskeletal: Reports extremity pain; Denies deformity, myalgias, radiating pain into limb, stiffness, tingling or tremors Integumentary Integumentary: Reports erythema; Denies alopecia, bleeding lesions, change in hair, hirsutism, jaundice, lesions, nail changes or new lesions Neurologic Neurologic: Denies behavior changes, confusion, convulsions, disequilibrium, dizziness, focal weakness or frequent falls Psychiatric Psychiatric: Denies auditory hallucinations, behavioral changes, change in libido, cognitive impairment, confusion, depression, difficulty concentrating or hallucinations Endocrine Endocrinology: Denies deepening of the voice, excessive sweating, fatigue, flushing, heat intolerance, increase in ring/shoe/hat size or palpitations Vital Signs Vital Signs Vital Signs: 02/06/22 10:34 Temperature 97.3 F L Temperature Source Temporal Pulse Rate 117 H Respiratory Rate 18 Blood Pressure 171/111 H Blood Pressure Mean 131 Blood Pressure Source Monitor Blood Pressure Position Sitting Blood Pressure Location Left Arm Oxygen Delivery Method Room Air Weight Weight: 230 lb Body Mass Index (BMI) 37.1 Physical Exam Const General Appearance: cooperative, comfortable and well developed Orientation / Consciousness: awake, oriented to person, oriented to place and oriented to time HEENT normocephalic, head/scalp atraumatic and hearing grossly normal bilaterally Head and Scalp: normal to inspection, normocephalic and atraumatic Eyes General Eye: normal appearance of both eyes Neck full ROM and supple General: normal visual inspection Resp normal respiratory effort and normal air movement Effort and Inspection: able to speak in complete sentences Cardio regular rate, regular rhythm, S1 normal heart sound and S2 normal heart sound GI non-tender Palpation: firm Testes: Negative for testicular mass Neuro oriented x3, CN's II-XII intact bilaterally, moves all extremities and no focal motor deficits Psych mental status grossly normal Appearance: grossly normal Attitude: calm Activity / Motor Behavior: appropriate eye contact Debridement Note Debridement Note Post-Debridement Measurements and Additional Note: Post-Debridement Measurements/Treatment - Nurse 1 - General Ulcer Assessment Start: 02/06/22 10:32 Freq: Status: Active Protocol: BROOKE Activity Type Activity Date Activity User E-sign Co-sign Detail Recorded Client Recorded Date Recorded By Document 02/06/22 10:34 [facility] [id number] 02/06/22 10:53 [facility] Document 02/06/22 11:01 [facility] [id number] 02/06/22 11:01 [facility] 02/06/22 02/06/22 10:34 11:01 - Today's Visit Information Type of service Initial Visit Arrival Mode Ambulatory Transfer Assistance None Patient Identification Verified (Name & Yes ) Patient Requires Transmission-Based No Precautions Height and Weight Height 5 ft 6 in Weight 230 lb Weight in Pounds 230.0 lbs Weight Measurement Method Estimated by Patient Body Mass Index (BMI) 37.1 BMI Classification Obese BSA - Kari 2.12 Vital Signs Temperature (97.8 F-99.1 F) 97.3 F L Temperature Source Temporal Pulse Rate (60-100) 117 H Pulse Location Monitor Respiratory Rate (12-18) 18 Respiratory rate source Observation Oxygen Delivery Method Room Air Blood Pressure (90/60-120/80) 171/111 H Blood Pressure Mean 131 Source Monitor Position Sitting Blood Pressure Location Left Arm Comment COUNSELED ON BP . PT STATES IT' S BEEN HIGH LAST FEW WKS AT [place] History Since Last Visit- (Skip if this is Patient's initial visit) Left Footwear Diabetic Shoe Right Footwear Diabetic Shoe Pain Scale: 0-10 Numeric Is Patient Pain Free? Yes Yes Lower Extremity Assessment/ Foot Assessment/ Toe Nail Assessment Right -Posterior Tibial Palpable No -Posterior Tibial Doppler Multiphasic -Dorsalis Pedis Palpable Yes -Dorsalis Pedis Doppler Multiphasic -Extremity Color Red -Hair Growth on Legs No -Hair Growth on Toes No -Temperature of Extremity Warm -Capillary Refill Less than 3 Seconds -Thick Yes -Discolored Yes -Deformed No -Improper Length & Hygeine Yes Left -Posterior Tibial Palpable No -Posterior Tibial Doppler Multiphasic -Dorsalis Pedis Palpable Yes -Dorsalis Pedis Doppler Multiphasic -Extremity Color Red -Hair Growth on Legs No -Hair Growth on Toes No -Temperature of Extremity Warm -Capillary Refill Less than 3 Seconds -Other Deformity No -Prior Foot Ulcer No -Charcot Joint No -Prior Amputation No -Thick Yes -Discolored Yes -Improper Length & Hygeine Yes Communication Assessment Preferred language Spanish Material Stress Tester Required No Able to Read Yes: POOR VISION Able to Write Yes Communication Tools None Right Hearing Abillity Normal Left Hearing Abillity Normal Visual Assistive Devices Glasses Teaching Assessment Preferences Verbal,Written, Audio/Visual, Demonstration Readiness To Learn Good Willingness to Engage in Self Management Med Activies Readiness to Engage in Self Management Med Activities Anxiety Level Calm Cooperation Cooperative Perception Coherent Interest in Health Problem Asks Questions Education Importance Acknowledges Need Does Patient Smoke tobacco or other No substances Smoking Status Former smoker Is Patient Diabetic Yes Functional Assessment Recent Decline in Ability to Perform Denies Any Declines 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 Cultural/Scientology Needs that may affect No Treatment Plan Teaching: Wound Center *Welcome to the Wound Center -Person Taught Patient -Teaching Method Discussion -Response to teaching Verbalize understanding Welcome to the Wound Care Center Spanish WC - Nurse 1 - General Ulcer Measurement Start: 02/06/22 10:32 Freq: Status: Active Protocol: Activity Type Activity Date Activity User E-sign Co-sign Detail Recorded Client Recorded Date Recorded By Document 02/06/22 10:34 [facility] [id number] 02/06/22 10:53 [facility] 02/06/22 10:34 Wound Center Nurse 1 Lower Limb Edema Present Yes Right Calf (cm) 40.8 Right Ankle (cm) 24.1 Left Calf (cm) 41 Left Ankle (cm) 24.5 WC - Nurse 2 - General Ulcer CM Notes Start: 02/06/22 10:32 Freq: Status: Active Protocol: Activity Type Activity Date Activity User E-sign Co-sign Detail Recorded Client Recorded Date Recorded By Document 02/06/22 11:18 [id number] 02/06/22 11:22 MW 02/06/22 11:18 Pain Scale: 0-10 Numeric Is Patient Pain Free? No WC - Nurse 3 - General Ulcer D/C NN Start: 02/06/22 10:32 Freq: Status: Active Protocol: Activity Type Activity Date Activity User E-sign Co-sign Detail Recorded Client Recorded Date Recorded By Document 02/06/22 11:37 [facility] [id number] 02/06/22 11:38 [facility] 02/06/22 11:37 Wound Care Nurse 3 ble -Multi-Layered Wrap Application Unna Boot - Bilateral ($) -Unna Boots (Bilat) ($) 2 Treatment Response Procedure Tolerated Well Pain Scale: 0-10 Numeric Is Patient Pain Free? Yes WC - Visit Discharge Discharge Condition Stable Ambulatory Status Ambulatory Other assisted living Charges/Coding Visit Charges Office Visits / Consults: [id number] OV L4 Est Assessment/Plan Assessment/Plan (1) Superficial ulcer of skin: CODE(S): L98.491 - Non-pressure chronic ulcer of skin of other sites limited to breakdown of skin (2) Venous insufficiency of both lower extremities: CODE(S): I87.2 - Venous insufficiency (chronic) (peripheral) (3) Chronic dermatitis: CODE(S): L30.9 - Dermatitis, unspecified (4) Venous insufficiency: CODE(S): I87.2 - Venous insufficiency (chronic) (peripheral) (5) Urticaria: CODE(S): L50.9 - Urticaria, unspecified PLAN: Plan Chronic, bilateral lower extremity dermatitis, swelling and erythema. Superficial skin ulcer as well. This has been ongoing for over a year. Had been seen here at the wound center and then referred to dermatology and most recently he was sent to [facility] by his PCP. It appears that he was managed for cellulitis however this did not make much difference per patient. He admits that he occasionally scratches due to feeling irritated in his lower extremity. He also picks at his upper extremities quite often, he states that he is trying not to do it as much. Will review records from [facility]. He may have had some vascular studies there. For now, due to erythema, superficial ulcerations and edema, Xeroform and Unna boot recommended. Come in on Thursday, and on Thursday again for a nurse visit. Follow-up with me in 2 weeks. Leg elevation, adequate protein intake optimal diabetes control, and other dietary/lifestyle modifications recommended. His questions were answered and he was advised to call with any further questions or concerns. Follow-up with me in 2 weeks.
[2022-02-11 14:45] VITALS: BP 175/113; PULSE 127; TEMP 36.8; BMI 37.1
[2022-02-13 14:59] VITALS: BP 161/115; PULSE 111; RESP 18; BMI 37.1
[2022-02-17 14:48] VITALS: BP 144/74; PULSE 105; TEMP 36.6; BMI 37.1
== END 2022-02-19 23:59 | disposition home or self-care (01) ==
LOC: WC 14:30
PROVIDERS: PCP Internal Medicine; Visit Provider Internal Medicine
DX: E11.620 Type 2 diabetes mellitus with diabetic dermatitis (principal); L98.491 Non-pressure chronic ulcer of skin of other sites limited to breakdown of skin; I11.0 Hypertensive heart disease with heart failure; I50.9 Heart failure, unspecified; E11.59 Type 2 diabetes mellitus with other circulatory complications; Z79.4 Long term (current) use of insulin; Z87.891 Personal history of nicotine dependence; M10.9 Gout, unspecified; M79.605 Pain in left leg; E07.9 Disorder of thyroid, unspecified; I87.2 Venous insufficiency (chronic) (peripheral); M79.604 Pain in right leg; L50.9 Urticaria, unspecified; Z79.82 Long term (current) use of aspirin
CPT/HCPCS: 29580; 29581; 99213; G0463

== ENCOUNTER → 2022-02-21 | Outpatient (CLI) | payer MEDICARE, MEDICAID, SELFPAY ==
[2022-02-21 13:09] LABS: Erythrocyte Sedimentation Rate 94 mm/hr (0-20)
[2022-02-21 13:12] LABS: Absolute Lymphocyte Count 1.43 X10^3/uL (0.83-4.51); Absolute Neutrophil Count 6.1 X10^3/uL (2.0-7.7); Basophil# 0.06 X10^3/uL; Basophil% 0.7 % (0-1); Eosinophil# 0.56 X10^3/uL; Eosinophils% 6.3 % (0-5); Hematocrit 38.4 % (40-54); Hemoglobin 12.4 g/dL (13.0-16.5); Lymphocyte # 1.43 X10^3/ul (0.83-4.51); Lymphocyte % 16.1 % (19-41); Mean Corp Hgb Conc 32.3 g/dL (32-36); Mean Corpuscular Hgb 31.5 pg (27.0-32.0); Mean Corpuscular Volume 97.5 fL (80-94); Mean Platelet Vol. 10.8 fl (6.2-12.0); Monocyte# 0.69 X10^3/uL; Monocyte% 7.8 % (0-10); NRBC Flagged by Analyzer 0 % (0-5); Neutrophil # 6.11 X10^3/uL (2.7-7.7); Neutrophil % 68.8 % (47-70); Platelet Count 274 K/mm3 (150-450); RBC Distribution Width CV 14.2 % (11.6-14.6); RBC Distribution Width SD 50.7 fl (35.1-43.9); Red Blood Count 3.94 M/mm3 (4.6-6.2); White Blood Count 8.9 K/mm3 (4.4-11.0)
[2022-02-21 13:52] LABS: ALB/GLOB Ratio 0.4 RATIO (0.9-2.4); AST(SGOT) 17 U/L (15-37); Alanine Aminotransfer ALT/SGPT 14 U/L (16-61); Albumin, Serum 2.3 g/dL (3.2-5.0); Alkaline Phosphatase 97 U/L (45-117); Anion Gap 3 (5-15); BUN 45 mg/dL (7-18); BUN/Creat Ratio 11.3 RATIO (10-20); Calcium,Total 8.8 mg/dL (8.5-10.1); Chloride 107 mmol/L (98-107); Creatinine, Serum 3.99 mg/dL (0.70-1.30); EST Glomerular Filtration Rate 16 mL/min (>60); Est Glom Filt Rate - Afr Amer 19 mL/min (>60); Globulin 5.6 g/dL (2.2-4.2); Glucose 54 mg/dL (74-106); Potassium 4.4 mmol/L (3.5-5.1); Protein, Total 7.9 g/dL (6.4-8.2); Sodium Level 141 mmol/L (136-145)
[2022-03-01 16:31] LABS: Perinuclear Ab (P-ANCA) <1:20 titer (Neg:<1:20)
== END | disposition home or self-care (01) ==
LOC: CVS 12:40
PROVIDERS: Internal Medicine; PCP Internal Medicine; Referring Provider Internal Medicine Nephrology; Visit Provider Internal Medicine Nephrology
DX: Z01.818 Encounter for other preprocedural examination (principal); N18.4 Chronic kidney disease, stage 4 (severe); I77.6 Arteritis, unspecified; R60.0 Localized edema; L30.9 Dermatitis, unspecified
CPT/HCPCS: 80053; 82595; 85025; 85652; 86140; 86256; 93985

== ENCOUNTER → 2022-02-25 | Outpatient (REF) | payer MEDICARE, MEDICAID, SELFPAY ==
[2022-02-25 09:23] LABS: Absolute Lymphocyte Count 1.55 X10^3/uL (0.83-4.51); Basophil# 0.06 X10^3/uL; Basophil% 0.7 % (0-1); Eosinophil# 0.55 X10^3/uL; Eosinophils% 6.2 % (0-5); Hematocrit 37.7 % (40-54); Hemoglobin 12.1 g/dL (13.0-16.5); Lymphocyte # 1.55 X10^3/ul (0.83-4.51); Lymphocyte % 17.5 % (19-41); Mean Corp Hgb Conc 32.1 g/dL (32-36); Mean Corpuscular Hgb 31.4 pg (27.0-32.0); Mean Corpuscular Volume 97.9 fL (80-94); Mean Platelet Vol. 11.4 fl (6.2-12.0); Monocyte# 0.69 X10^3/uL; Monocyte% 7.8 % (0-10); NRBC Flagged by Analyzer 0 % (0-5); Neutrophil # 5.99 X10^3/uL (2.7-7.7); Neutrophil % 67.7 % (47-70); Platelet Count 265 K/mm3 (150-450); RBC Distribution Width CV 14.3 % (11.6-14.6); RBC Distribution Width SD 51.1 fl (35.1-43.9); Red Blood Count 3.85 M/mm3 (4.6-6.2); White Blood Count 8.9 K/mm3 (4.4-11.0)
[2022-02-25 09:37] LABS: ALB/GLOB Ratio 0.4 RATIO (0.9-2.4); AST(SGOT) 12 U/L (15-37); Alanine Aminotransfer ALT/SGPT 12 U/L (16-61); Albumin, Serum 2.2 g/dL (3.2-5.0); Alkaline Phosphatase 108 U/L (45-117); Anion Gap 8 (5-15); BUN 42 mg/dL (7-18); BUN/Creat Ratio 11.3 RATIO (10-20); Calcium,Total 8.5 mg/dL (8.5-10.1); Chloride 102 mmol/L (98-107); Cholesterol 186 mg/dL (200); Creatinine, Serum 3.73 mg/dL (0.70-1.30); EST Glomerular Filtration Rate 17 mL/min (>60); Est Glom Filt Rate - Afr Amer 20 mL/min (>60); GGTP 19 U/L (15-85); Globulin 5.1 g/dL (2.2-4.2); Glucose 114 mg/dL (74-106); High Density Lipoprotein 39 mg/dL; Magnesium 1.9 mg/dL (1.6-2.6); Phosphorus 2.9 mg/dL (2.5-4.9); Protein, Total 7.3 g/dL (6.4-8.2); Sodium Level 139 mmol/L (136-145); Triglycerides 223 mg/dL; Very Low Density Lipoprotein 45 mg/dL (5-40)
[2022-02-25 09:49] LABS: PTHIN 271.3 pg/mL (18.4-80.1)
[2022-03-02 15:42] LABS: Tacrolimus (FK506) 3.5 ng/mL (2.0-20.0)
== END ==
LOC: OLS.SWAL 05:00
PROVIDERS: PCP Internal Medicine
DX: R73.02 Impaired glucose tolerance (oral) (principal); E61.2 Magnesium deficiency; K76.9 Liver disease, unspecified; Z48.23 Encounter for aftercare following liver transplant; Z94.4 Liver transplant status; Z41.8 Encounter for other procedures for purposes other than remedying health state
CPT/HCPCS: 36415; 80053; 80061; 80197; 82977; 83735; 83970; 84100; 85025

== ENCOUNTER → 2022-03-14 | Outpatient (REF) | payer MEDICARE, MEDICAID, SELFPAY ==
[2022-03-14 08:02] LABS: Anion Gap 6 (5-15); BUN 45 mg/dL (7-18); BUN/Creat Ratio 10.2 RATIO (10-20); Calcium,Total 8.6 mg/dL (8.5-10.1); Chloride 107 mmol/L (98-107); EST Glomerular Filtration Rate 14 mL/min (>60); Est Glom Filt Rate - Afr Amer 17 mL/min (>60); Glucose 134 mg/dL (74-106); Potassium 4.1 mmol/L (3.5-5.1); Sodium Level 140 mmol/L (136-145)
== END ==
LOC: OLS.SWAL 05:00
PROVIDERS: PCP Internal Medicine; Visit Provider Internal Medicine
DX: I10 Essential (primary) hypertension (principal)
CPT/HCPCS: 36415; 80048

== ENCOUNTER 2022-03-20 10:45 | Outpatient (RCR) | payer MEDICARE, MEDICAID, SELFPAY ==
[2022-02-20 00:44] VITALS: BP 144/74; PULSE 105; RESP 18; TEMP 36.6; BMI 37.1
[2022-02-20 10:44] VITALS: BP 150/90; PULSE 111; TEMP 36.1; BMI 37.1
--- NOTE | 2022-02-20 14:10 | PN.PCM_ITS ---
History of Present Illness Date of Service: 02/20/22 Chief Complaint: Bilateral lower extremity pain, redness and swelling. History of Wound: This is a 76 year-old white male who presents to the wound healing center today due to non healing bilateral lower extremity lesions. He states that his concerns have been present for over a year. Was seen at the wound center with no significant improvement and he was subsequently sent to see a Esthetician Facialist. He states that he was seen weekly and had a Zinc oxide wrap placed again without any improvement. His main concerns are bilateral lower extremity, rash, itching, irritation, redness and swelling. He was sent by his PCP to [facility] where he was seen by ID. He states that he was placed on IV antibiotics but again, he states that he does not believe it made any difference. He denies chills, fever or otherwise feeling of unwell. Progress of Wound: Some improvement in skin integrity/texture and edema. Still significant erythema. No chills, fever or feeling of unwell. Objective Data Objective Data Vital Signs: Vital Signs Temp Pulse Resp BP 97.0 F L 111 H 18 150/90 H 02/20/22 10:44 02/20/22 10:44 02/20/22 00:44 02/20/22 10:44 Weight: 230 lb Body Mass Index (BMI) 37.1 Charges/Coding Visit Charges Office Visits / Consults: 36606 OV L4 Est Physical Exam Const General Appearance: cooperative, comfortable and well developed Orientation / Consciousness: awake, oriented to person, oriented to place and oriented to time HEENT normocephalic, head/scalp atraumatic and hearing grossly normal bilaterally Head and Scalp: normal to inspection, normocephalic and atraumatic Eyes General Eye: normal appearance of both eyes Neck full ROM and supple General: normal visual inspection Resp normal respiratory effort and normal air movement Effort and Inspection: able to speak in complete sentences Cardio regular rate, regular rhythm, S1 normal heart sound and S2 normal heart sound GI non-tender Palpation: firm Testes: Negative for testicular mass Neuro oriented x3, CN's II-XII intact bilaterally, moves all extremities and no focal motor deficits Psych mental status grossly normal Appearance: grossly normal Attitude: calm Activity / Motor Behavior: appropriate eye contact Debridement Note Debridement Note Post-Debridement Measurements and Additional Note: Post-Debridement Measurements/Treatment WC - Nurse 1 - General Ulcer Assessment Start: 02/20/22 10:42 Freq: Status: Active Protocol: BROOKE Activity Type Activity Date Activity User E-sign Co-sign Detail Recorded Client Recorded Date Recorded By Document 02/20/22 10:44 ABEL [id number] 02/20/22 10:51 ABEL 02/20/22 10:44 WC - Today's Visit Information Type of service Follow-up Visit (Physician/DERMATOLOGY PROCEDURAL PHYSICIAN ) Arrival Mode Ambulatory Patient Identification Verified (Name & Yes ) Height and Weight Body Mass Index (BMI) 37.1 BMI Classification Obese Vital Signs Temperature (97.8 F-99.1 F) 97.0 F L Temperature Source Temporal Pulse Rate (60-100) 111 H Pulse Location Monitor Blood Pressure (90/60-120/80) 150/90 H Blood Pressure Mean (mm Hg) 110 Source Monitor Position Semi-Fowlers Blood Pressure Location Right Arm History Since Last Visit- (Skip if this is Patient's initial visit) Have you changed medications since your No last visit? Any new allergies or adverse reactions No Had a fall/change in ADL's that may No increase risk of falls Signs or symptoms of abuse and/or No neglect since last visit Have you been in the hospital since your No last visit? Has dressing in place as prescribed No Has compression in place as prescribed Yes Has offloadiing in place as prescribed N/A Experienced any changes in pain level or No management Left Footwear Regular Shoe Right Footwear Regular Shoe Pain Scale: 0-10 Numeric Is Patient Pain Free? Yes - Nurse 1 - General Ulcer Measurement Start: 02/20/22 10:42 Freq: Status: Active Protocol: Activity Type Activity Date Activity User E-sign Co-sign Detail Recorded Client Recorded Date Recorded By Document 02/20/22 10:44 ABEL [id number] 02/20/22 10:51 ABEL 02/20/22 10:44 Wound Center Nurse 1 Right Calf (cm) 41 Right Ankle (cm) 23.9 Left Calf (cm) 32.5 Left Ankle (cm) 26.5 - Nurse 2 - General Ulcer CM Notes Start: 02/20/22 10:42 Freq: Status: Active Protocol: Activity Type Activity Date Activity User E-sign Co-sign Detail Recorded Client Recorded Date Recorded By Document 02/20/22 11:06 MW [id number] 02/20/22 11:09 MW 02/20/22 11:06 Pain Scale: 0-10 Numeric Is Patient Pain Free? Yes Assessment/Plan Assessment/Plan (1) Superficial ulcer of skin: CODE(S): L98.491 - Non-pressure chronic ulcer of skin of other sites limited to breakdown of skin (2) Venous insufficiency of both lower extremities: CODE(S): I87.2 - Venous insufficiency (chronic) (peripheral) (3) Chronic dermatitis: CODE(S): L30.9 - Dermatitis, unspecified (4) Venous insufficiency: CODE(S): I87.2 - Venous insufficiency (chronic) (peripheral) (5) Urticaria: CODE(S): L50.9 - Urticaria, unspecified PLAN: Plan Chronic, bilateral lower extremity dermatitis, swelling and erythema. Some improvement in edema and irritation noted. Still significant erythema. 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 ANCA studies, ESR and cryoglobulin ordered. Will review. For now, continue Xeroform and Unna boot. Change on Thursday. Leg elevation, adequate protein intake optimal diabetes control, and other dietary/lifestyle modifications recommended. His questions were answered and he was advised to call with any further questions or concerns. Follow-up with me in 1 week
[2022-02-25 15:27] VITALS: TEMP 36.6; BMI 37.1
[2022-02-25 15:31] VITALS: BMI 37.1
[2022-02-27 10:54] VITALS: BP 178/116; PULSE 111; RESP 20; TEMP 36.4; BMI 37.1
[2022-03-03 09:53] VITALS: TEMP 36.2; BMI 37.1
[2022-03-06 11:15] VITALS: BP 140/82; PULSE 125; RESP 16; TEMP 36.6; BMI 37.1
--- NOTE | 2022-03-06 12:35 | PN.PCM_ITS ---
History of Present Illness Date of Service: 03/06/22 Chief Complaint: Bilateral lower extremity pain, redness and swelling. History of Wound: This is a 76 year-old white male who presents to the wound healing center today due to non healing bilateral lower extremity lesions. He states that his concerns have been present for over a year. Was seen at the wound center with no significant improvement and he was subsequently sent to see a Repair Department Supervisor. He states that he was seen weekly and had a Zinc oxide wrap placed again without any improvement. His main concerns are bilateral lower extremity, rash, itching, irritation, redness and swelling. He was sent by his PCP to [facility] where he was seen by ID. He states that he was placed on IV antibiotics but again, he states that he does not believe it made any difference. He denies chills, fever or otherwise feeling of unwell. Progress of Wound: Some improvement in skin integrity/texture and edema. Still significant erythema. Recent labs reviewed Objective Data Objective Data Vital Signs: Vital Signs Temp Pulse Resp BP O2 Del Method 98 F 125 H 16 140/82 H Room Air 03/06/22 11:15 03/06/22 11:15 03/06/22 11:15 03/06/22 11:15 03/06/22 11:15 Oxygen Delivery Method Room Air Weight: 230 lb Body Mass Index (BMI) 37.1 Charges/Coding Visit Charges Office Visits / Consults: 26048 OV L3 Est Physical Exam Const General Appearance: cooperative, comfortable and well developed Orientation / Consciousness: awake, oriented to person, oriented to place and oriented to time HEENT normocephalic, head/scalp atraumatic and hearing grossly normal bilaterally Head and Scalp: normal to inspection, normocephalic and atraumatic Eyes General Eye: normal appearance of both eyes Neck full ROM and supple General: normal visual inspection Resp normal respiratory effort and normal air movement Effort and Inspection: able to speak in complete sentences Cardio regular rate, regular rhythm, S1 normal heart sound and S2 normal heart sound GI non-tender Palpation: firm Testes: Negative for testicular mass Neuro oriented x3, CN's II-XII intact bilaterally, moves all extremities and no focal motor deficits Psych mental status grossly normal Appearance: grossly normal Attitude: calm Activity / Motor Behavior: appropriate eye contact Debridement Note Debridement Note Post-Debridement Measurements and Additional Note: Post-Debridement Measurements/Treatment WC - Nurse 1 - General Ulcer Assessment Start: 02/20/22 10:42 Freq: Status: Active Protocol: WC.LOWEXT Activity Type Activity Date Activity User E-sign Co-sign Detail Recorded Client Recorded Date Recorded By Document 02/20/22 10:44 KR [id number] 02/20/22 10:51 KR Document 02/25/22 15:27 AK [id number] 02/25/22 15:28 AK Document 02/25/22 15:31 AK [id number] 02/25/22 15:32 AK Document 02/27/22 10:54 DL [id number] 02/27/22 11:01 DL Document 03/03/22 09:53 AK [id number] 03/03/22 09:55 AK Document 03/06/22 11:15 BMF [id number] 03/06/22 11:28 BMF 02/20/22 02/25/22 02/25/22 10:44 15:27 15:31 WC - Today's Visit Information Type of service Follow-up Visit Nurse-only (Physician/AIR CONTROL/ANTI AIR WARFARE OFFICER Visit ) Arrival Mode Ambulatory Ambulatory, Walker Transfer Assistance Patient Identification Verified (Name & Yes Yes ) Patient Requires Transmission-Based No Precautions Safety Precautions NA Finger Stick Blood Sugar(mg/dl) (if indicated): Blood Sugar Height and Weight Body Mass Index (BMI) 37.1 37.1 37.1 BMI Classification Obese Obese Obese Vital Signs Temperature (97.8 F-99.1 F) 97.0 F L 97.8 F Temperature Source Temporal Temporal Pulse Rate (60-100) 111 H Pulse Location Monitor Respiratory Rate (12-18) Respiratory rate source Oxygen Delivery Method Blood Pressure (90/60-120/80) 150/90 H Blood Pressure Mean (mm Hg) 110 Source Monitor Position Semi-Fowlers Blood Pressure Location Right Arm Comment used 2 xeroform to bilateral legs No where to chart since there are no ope History Since Last Visit- (Skip if this is Patient's initial visit) Have you changed medications since your No No last visit? Any new allergies or adverse reactions No No Had a fall/change in ADL's that may No No increase risk of falls Signs or symptoms of abuse and/or No No neglect since last visit Have you been in the hospital since your No No last visit? Has dressing in place as prescribed No Yes Has compression in place as prescribed Yes Yes Has offloadiing in place as prescribed N/A N/A Experienced any changes in pain level or No No management Left Footwear Regular Shoe Regular Shoe Right Footwear Regular Shoe Regular Shoe Pain Scale: 0-10 Numeric Is Patient Pain Free? Yes No Yes 02/27/22 03/03/22 03/06/22 10:54 09:53 11:15 WC - Today's Visit Information Type of service Follow-up Visit Follow-up Visit Follow-up Visit (Physician/AIR CONTROL/ANTI AIR WARFARE OFFICER (Physician/AIR CONTROL/ANTI AIR WARFARE OFFICER (Physician/AIR CONTROL/ANTI AIR WARFARE OFFICER ) ) ) Arrival Mode Ambulatory, Ambulatory Ambulatory Walker Transfer Assistance None None Patient Identification Verified (Name & Yes Yes Yes ) Patient Requires Transmission-Based No No No Precautions Safety Precautions NA Finger Stick Blood Sugar(mg/dl) (if not checked indicated): Blood Sugar Stated by Patient Height and Weight Body Mass Index (BMI) 37.1 37.1 37.1 BMI Classification Obese Obese Obese Vital Signs Temperature (97.8 F-99.1 F) 97.6 F L 97.2 F L 98 F Temperature Source Temporal Temporal Temporal Pulse Rate (60-100) 111 H 125 H Pulse Location Monitor Monitor Respiratory Rate (12-18) 20 H 16 Respiratory rate source Observation Observation Oxygen Delivery Method Room Air Blood Pressure (90/60-120/80) 178/116 H 140/82 H Blood Pressure Mean (mm Hg) 136 101 Source Monitor Monitor Position Sitting Blood Pressure Location Left Arm Comment History Since Last Visit- (Skip if this is Patient's initial visit) Have you changed medications since your No No No last visit? Any new allergies or adverse reactions No No No Had a fall/change in ADL's that may No No No increase risk of falls Signs or symptoms of abuse and/or No No No neglect since last visit Have you been in the hospital since your No No No last visit? Has dressing in place as prescribed Yes Yes Yes Has compression in place as prescribed Yes Yes Yes Has offloadiing in place as prescribed N/A N/A N/A Experienced any changes in pain level or No No No management Left Footwear Regular Shoe Diabetic Shoe Right Footwear Regular Shoe Diabetic Shoe Pain Scale: 0-10 Numeric Is Patient Pain Free? Yes Yes Yes - Nurse 1 - General Ulcer Measurement Start: 02/20/22 10:42 Freq: Status: Active Protocol: Activity Type Activity Date Activity User E-sign Co-sign Detail Recorded Client Recorded Date Recorded By Document 02/20/22 10:44 KR [id number] 02/20/22 10:51 KR Document 02/27/22 10:54 DL [id number] 02/27/22 11:01 DL Document 03/06/22 11:15 BMF [id number] 03/06/22 11:28 BMF 02/20/22 02/27/22 03/06/22 10:44 10:54 11:15 Wound Center Nurse 1 Lower Limb Edema Present Yes Right Calf (cm) 41 38 39.5 Right Ankle (cm) 23.9 23.5 23.7 Left Calf (cm) 32.5 37 39.7 Left Ankle (cm) 26.5 24.4 24.4 - Nurse 2 - General Ulcer CM Notes Start: 02/20/22 10:42 Freq: Status: Active Protocol: Activity Type Activity Date Activity User E-sign Co-sign Detail Recorded Client Recorded Date Recorded By Document 02/20/22 11:06 MW [id number] 02/20/22 11:09 MW Document 02/27/22 11:28 MW [id number] 02/27/22 11:30 MW Document 03/06/22 11:48 MW [id number] 03/06/22 11:50 MW 02/20/22 02/27/22 03/06/22 11:06 11:28 11:48 Pain Scale: 0-10 Numeric Is Patient Pain Free? Yes Yes Yes - Nurse 3 - General Ulcer D/C NN Start: 02/20/22 10:42 Freq: Status: Active Protocol: Activity Type Activity Date Activity User E-sign Co-sign Detail Recorded Client Recorded Date Recorded By Document 02/20/22 06:49 PL [id number] 02/21/22 06:50 PL Document 02/25/22 15:27 AK [id number] 02/25/22 15:28 AK Document 02/27/22 11:38 BMF [id number] 02/27/22 11:39 [facility] Document 03/03/22 09:53 AK [id number] 03/03/22 09:55 AK Document 03/06/22 12:07 [facility] [id number] 03/06/22 12:08 [facility] 02/20/22 02/25/22 02/27/22 06:49 15:27 11:38 Wound Care Nurse 3 Bilateral -Lotion applied to leg before compression wrap -Multi-Layered Wrap Application Unna Boot - Unna Boot - Unna Boot - Bilateral ($) Bilateral ($) Bilateral ($) -Unna Boots (Bilat) ($) 2 2 2 -Stockings -Other UNNAS 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 Yes No Yes WC - Visit Discharge Discharge Condition Stable Stable Ambulatory Status Walker Ambulatory Transportation Private Auto ASSISTED LIVING TRANSPORT Medication Reconcilliation completed & Yes provided to patient/care provider Clinical Summary of Care Provided Yes Other ASSISTED LIVING 03/03/22 03/06/22 09:53 12:07 Wound Care Nurse 3 Bilateral -Lotion applied to leg before No compression wrap -Multi-Layered Wrap Application Unna Boot - Unna Boot - Bilateral ($) Bilateral ($) -Unna Boots (Bilat) ($) 2 2 -Stockings No -Other Treatment Response Procedure Tolerated Well Vital Signs Temperature (97.8 F-99.1 F) 97.2 F L Temperature Source Temporal Pain Scale: 0-10 Numeric Is Patient Pain Free? Yes Yes WC - Visit Discharge Discharge Condition Stable Stable Ambulatory Status Ambulatory Ambulatory Transportation Private Auto Private Auto Medication Reconcilliation completed & No provided to patient/care provider Clinical Summary of Care Provided Yes Other assisted living Assessment/Plan Assessment/Plan (1) Superficial ulcer of skin: CODE(S): L98.491 - Non-pressure chronic ulcer of skin of other sites limited to breakdown of skin (2) Venous insufficiency of both lower extremities: CODE(S): I87.2 - Venous insufficiency (chronic) (peripheral) (3) Chronic dermatitis: CODE(S): L30.9 - Dermatitis, unspecified (4) Venous insufficiency: CODE(S): I87.2 - Venous insufficiency (chronic) (peripheral) (5) Urticaria: CODE(S): L50.9 - Urticaria, unspecified PLAN: Plan Chronic, bilateral lower extremity dermatitis, swelling and erythema. Some improvement in edema and irritation noted. Still significant erythema. 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 Positive ANCA antibodies. He is scheduled to see a Rheumatologists. For now, continue Xeroform and Unna boot. Aquacel to the open area on left medial great toe. Change on Thursday. Leg elevation, adequate protein intake, optimal diabetes control, and other dietary/lifestyle modifications recommended. His questions were answered and he was advised to call with any further questions or concerns. Follow-up with me in 1 week
[2022-03-10 08:47] VITALS: BP 150/83; PULSE 78; TEMP 36.3; BMI 37.1
[2022-03-13 11:14] VITALS: BP 149/86; PULSE 117; RESP 22; TEMP 36.8; BMI 37.1
--- NOTE | 2022-03-13 12:43 | PN.PCM_ITS ---
History of Present Illness Date of Service: 03/13/22 Chief Complaint: Bilateral lower extremity pain, redness and swelling. History of Wound: This is a 76 year-old white male who presents to the wound healing center today due to non healing bilateral lower extremity lesions. He states that his concerns have been present for over a year. Was seen at the wound center with no significant improvement and he was subsequently sent to see a [facility] Winder. He states that he was seen weekly and had a Zinc oxide wrap placed again without any improvement. His main concerns are bilateral lower extremity, rash, itching, irritation, redness and swelling. He was sent by his PCP to [facility] where he was seen by ID. He states that he was placed on IV antibiotics but again, he states that he does not believe it made any difference. He denies chills, fever or otherwise feeling of unwell. Progress of Wound: Increased erythema but denies increased pain, chills or fever. Yet to schedule with Rheumatology. Objective Data Objective Data Vital Signs: Vital Signs Temp Pulse Resp BP O2 Del Method 98.3 F 117 H 22 H 149/86 H Room Air 03/13/22 11:14 03/13/22 11:14 03/13/22 11:14 03/13/22 11:14 03/06/22 11:15 Oxygen Delivery Method Room Air Weight: 230 lb Body Mass Index (BMI) 37.1 Charges/Coding Visit Charges Office Visits / Consults: 17909 OV L3 Est Physical Exam Const General Appearance: cooperative, comfortable and well developed Orientation / Consciousness: awake, oriented to person, oriented to place and oriented to time HEENT normocephalic, head/scalp atraumatic and hearing grossly normal bilaterally Head and Scalp: normal to inspection, normocephalic and atraumatic Eyes General Eye: normal appearance of both eyes Neck full ROM and supple General: normal visual inspection Resp normal respiratory effort Effort and Inspection: able to speak in complete sentences Neuro oriented x3, CN's II-XII intact bilaterally, moves all extremities and no focal motor deficits Psych mental status grossly normal Appearance: grossly normal Attitude: calm Activity / Motor Behavior: appropriate eye contact Debridement Note Debridement Note Post-Debridement Measurements and Additional Note: Post-Debridement Measurements/Treatment ILENE - Nurse 1 - General Ulcer Assessment Start: 02/20/22 10:42 Freq: Status: Active Protocol: WC.LOWEXT Activity Type Activity Date Activity User E-sign Co-sign Detail Recorded Client Recorded Date Recorded By Document 02/20/22 10:44 KR [id number] 02/20/22 10:51 KR Document 02/25/22 15:27 AK [id number] 02/25/22 15:28 AK Document 02/25/22 15:31 AK [id number] 02/25/22 15:32 AK Document 02/27/22 10:54 DL [id number] 02/27/22 11:01 DL Document 03/03/22 09:53 AK [id number] 03/03/22 09:55 AK Document 03/06/22 11:15 BMF [id number] 03/06/22 11:28 BMF Document 03/10/22 08:47 KR [id number] 03/10/22 08:49 KR Document 03/13/22 11:14 DL [id number] 03/13/22 11:28 DL 02/20/22 02/25/22 02/25/22 10:44 15:27 15:31 WC - Today's Visit Information Type of service Follow-up Visit Nurse-only (Physician/NEONATAL PEDIATRIC NURSE Visit ) Arrival Mode Ambulatory Ambulatory, Walker Transfer Assistance Patient Identification Verified (Name & Yes Yes ) Patient Requires Transmission-Based No Precautions Safety Precautions NA Finger Stick Blood Sugar(mg/dl) (if indicated): Blood Sugar Height and Weight Body Mass Index (BMI) 37.1 37.1 37.1 BMI Classification Obese Obese Obese Vital Signs Temperature (97.8 F-99.1 F) 97.0 F L 97.8 F Temperature Source Temporal Temporal Pulse Rate (60-100) 111 H Pulse Location Monitor Respiratory Rate (12-18) Respiratory rate source Oxygen Delivery Method Blood Pressure (90/60-120/80) 150/90 H Blood Pressure Mean (mm Hg) 110 Source Monitor Position Semi-Fowlers Blood Pressure Location Right Arm Comment used 2 xeroform to bilateral legs No where to chart since there are no ope History Since Last Visit- (Skip if this is Patient's initial visit) Have you changed medications since your No No last visit? Any new allergies or adverse reactions No No Had a fall/change in ADL's that may No No increase risk of falls Signs or symptoms of abuse and/or No No neglect since last visit Have you been in the hospital since your No No last visit? Has dressing in place as prescribed No Yes Has compression in place as prescribed Yes Yes Has offloadiing in place as prescribed N/A N/A Experienced any changes in pain level or No No management Left Footwear Regular Shoe Regular Shoe Right Footwear Regular Shoe Regular Shoe Pain Scale: 0-10 Numeric Is Patient Pain Free? Yes No Yes 02/27/22 03/03/22 03/06/22 10:54 09:53 11:15 WC - Today's Visit Information Type of service Follow-up Visit Follow-up Visit Follow-up Visit (Physician/NEONATAL PEDIATRIC NURSE (Physician/NEONATAL PEDIATRIC NURSE (Physician/NEONATAL PEDIATRIC NURSE ) ) ) Arrival Mode Ambulatory, Ambulatory Ambulatory Walker Transfer Assistance None None Patient Identification Verified (Name & Yes Yes Yes ) Patient Requires Transmission-Based No No No Precautions Safety Precautions NA Finger Stick Blood Sugar(mg/dl) (if not checked indicated): Blood Sugar Stated by Patient Height and Weight Body Mass Index (BMI) 37.1 37.1 37.1 BMI Classification Obese Obese Obese Vital Signs Temperature (97.8 F-99.1 F) 97.6 F L 97.2 F L 98 F Temperature Source Temporal Temporal Temporal Pulse Rate (60-100) 111 H 125 H Pulse Location Monitor Monitor Respiratory Rate (12-18) 20 H 16 Respiratory rate source Observation Observation Oxygen Delivery Method Room Air Blood Pressure (90/60-120/80) 178/116 H 140/82 H Blood Pressure Mean (mm Hg) 136 101 Source Monitor Monitor Position Sitting Blood Pressure Location Left Arm Comment History Since Last Visit- (Skip if this is Patient's initial visit) Have you changed medications since your No No No last visit? Any new allergies or adverse reactions No No No Had a fall/change in ADL's that may No No No increase risk of falls Signs or symptoms of abuse and/or No No No neglect since last visit Have you been in the hospital since your No No No last visit? Has dressing in place as prescribed Yes Yes Yes Has compression in place as prescribed Yes Yes Yes Has offloadiing in place as prescribed N/A N/A N/A Experienced any changes in pain level or No No No management Left Footwear Regular Shoe Diabetic Shoe Right Footwear Regular Shoe Diabetic Shoe Pain Scale: 0-10 Numeric Is Patient Pain Free? Yes Yes Yes 03/10/22 03/13/22 08:47 11:14 - Today's Visit Information Type of service Nurse-only Follow-up Visit Visit (Physician/NEONATAL PEDIATRIC NURSE ) Arrival Mode Ambulatory Ambulatory, Walker Transfer Assistance None Patient Identification Verified (Name & Yes Yes ) Patient Requires Transmission-Based No Precautions Safety Precautions Fall Prevention Finger Stick Blood Sugar(mg/dl) (if indicated): Blood Sugar Height and Weight Body Mass Index (BMI) 37.1 37.1 BMI Classification Obese Obese Vital Signs Temperature (97.8 F-99.1 F) 97.3 F L 98.3 F Temperature Source Temporal Temporal Pulse Rate (60-100) 78 117 H Pulse Location Monitor Monitor Respiratory Rate (12-18) 22 H Respiratory rate source Observation Oxygen Delivery Method Blood Pressure (90/60-120/80) 150/83 H 149/86 H Blood Pressure Mean (mm Hg) 105 107 Source Monitor Monitor Position Semi-Fowlers Blood Pressure Location Left Arm Comment History Since Last Visit- (Skip if this is Patient's initial visit) Have you changed medications since your No No last visit? Any new allergies or adverse reactions No No Had a fall/change in ADL's that may No No increase risk of falls Signs or symptoms of abuse and/or No No neglect since last visit Have you been in the hospital since your No No last visit? Has dressing in place as prescribed Yes No Has compression in place as prescribed Yes No Has offloadiing in place as prescribed N/A Experienced any changes in pain level or No No management Left Footwear Regular Shoe Right Footwear Regular Shoe Pain Scale: 0-10 Numeric Is Patient Pain Free? Yes Yes - Nurse 1 - General Ulcer Measurement Start: 02/20/22 10:42 Freq: Status: Active Protocol: Activity Type Activity Date Activity User E-sign Co-sign Detail Recorded Client Recorded Date Recorded By Document 02/20/22 10:44 KR [id number] 02/20/22 10:51 KR Document 02/27/22 10:54 DL [id number] 02/27/22 11:01 DL Document 03/06/22 11:15 BMF [id number] 03/06/22 11:28 BMF Document 03/13/22 11:14 DL [id number] 03/13/22 11:28 DL 02/20/22 02/27/22 03/06/22 10:44 10:54 11:15 Wound Center Nurse 1 Lower Limb Edema Present Yes Right Calf (cm) 41 38 39.5 Right Ankle (cm) 23.9 23.5 23.7 Left Calf (cm) 32.5 37 39.7 Left Ankle (cm) 26.5 24.4 24.4 03/13/22 11:14 Wound Center Nurse 1 Lower Limb Edema Present Right Calf (cm) 38 Right Ankle (cm) 24.2 Left Calf (cm) 38 Left Ankle (cm) 24.4 WC - Nurse 2 - General Ulcer CM Notes Start: 02/20/22 10:42 Freq: Status: Active Protocol: Activity Type Activity Date Activity User E-sign Co-sign Detail Recorded Client Recorded Date Recorded By Document 02/20/22 11:06 MW [id number] 02/20/22 11:09 MW Document 02/27/22 11:28 MW [id number] 02/27/22 11:30 MW Document 03/06/22 11:48 MW [id number] 03/06/22 11:50 MW Document 03/13/22 11:54 MW [id number] 03/13/22 11:57 MW 02/20/22 02/27/22 03/06/22 11:06 11:28 11:48 Pain Scale: 0-10 Numeric Is Patient Pain Free? Yes Yes Yes 03/13/22 11:54 Pain Scale: 0-10 Numeric Is Patient Pain Free? Yes WC - Nurse 3 - General Ulcer D/C NN Start: 02/20/22 10:42 Freq: Status: Active Protocol: Activity Type Activity Date Activity User E-sign Co-sign Detail Recorded Client Recorded Date Recorded By Document 02/20/22 06:49 PL [id number] 02/21/22 06:50 PL Document 02/25/22 15:27 AK [id number] 02/25/22 15:28 AK Document 02/27/22 11:38 BMF [id number] 02/27/22 11:39 BM Document 03/03/22 09:53 AK [id number] 03/03/22 09:55 AK Document 03/06/22 12:07 [facility] [id number] 03/06/22 12:08 [facility] Document 03/10/22 08:47 KR [id number] 03/10/22 08:49 KR Document 03/13/22 12:09 MW [id number] 03/13/22 12:10 MW 02/20/22 02/25/22 02/27/22 06:49 15:27 11:38 Wound Care Nurse 3 Bilateral -Lotion applied to leg before compression wrap -Multi-Layered Wrap Application Unna Boot - Unna Boot - Unna Boot - Bilateral ($) Bilateral ($) Bilateral ($) -Unna Boots (Bilat) ($) 2 2 2 -Stockings -Other UNNAS TIFFANIE PER DL PHYSICAL THERAPIST ASSISTANT; XEROFORM TO RED AREAS Treatment Response Procedure Tolerated Well Vital Signs Temperature (97.8 F-99.1 F) 97.8 F Temperature Source Temporal Pulse Rate (60-100) Pulse Location Blood Pressure (90/60-120/80) Blood Pressure Mean (mm Hg) Source Position Blood Pressure Location Pain Scale: 0-10 Numeric Is Patient Pain Free? Yes No Yes WC - Visit Discharge Discharge Condition Stable Stable Ambulatory Status Walker Ambulatory Transportation Private Auto ASSISTED LIVING TRANSPORT Accompanied by Medication Reconcilliation completed & Yes provided to patient/care provider Clinical Summary of Care Provided Yes Other ASSISTED LIVING 03/03/22 03/06/22 03/10/22 09:53 12:07 08:47 Wound Care Nurse 3 Bilateral -Lotion applied to leg before No Yes compression wrap -Multi-Layered Wrap Application Unna Boot - Unna Boot - Unna Boot - Bilateral ($) Bilateral ($) Bilateral ($) -Unna Boots (Bilat) ($) 2 2 2 -Stockings No -Other Treatment Response Procedure Tolerated Well Vital Signs Temperature (97.8 F-99.1 F) 97.2 F L 97.3 F L Temperature Source Temporal Temporal Pulse Rate (60-100) 78 Pulse Location Monitor Blood Pressure (90/60-120/80) 150/83 H Blood Pressure Mean (mm Hg) 105 Source Monitor Position Semi-Fowlers Blood Pressure Location Left Arm Pain Scale: 0-10 Numeric Is Patient Pain Free? Yes Yes Yes WC - Visit Discharge Discharge Condition Stable Stable Stable Ambulatory Status Ambulatory Ambulatory Ambulatory Transportation Private Auto Private Auto Accompanied by [facility] nolberto Medication Reconcilliation completed & No provided to patient/care provider Clinical Summary of Care Provided Yes Other assisted living 03/13/22 12:09 Wound Care Nurse 3 Bilateral -Lotion applied to leg before compression wrap -Multi-Layered Wrap Application Multi-Layer Comp - Bilat ($ ) -Unna Boots (Bilat) ($) -Stockings -Other xeroform to red areas Treatment Response Procedure Tolerated Well Vital Signs Temperature (97.8 F-99.1 F) Temperature Source Pulse Rate (60-100) Pulse Location Blood Pressure (90/60-120/80) Blood Pressure Mean (mm Hg) Source Position Blood Pressure Location Pain Scale: 0-10 Numeric Is Patient Pain Free? Yes WC - Visit Discharge Discharge Condition Stable Ambulatory Status Ambulatory Transportation assisted living transport Accompanied by Medication Reconcilliation completed & provided to patient/care provider Clinical Summary of Care Provided Other assisted living Assessment/Plan Assessment/Plan (1) Superficial ulcer of skin: CODE(S): L98.491 - Non-pressure chronic ulcer of skin of other sites limited to breakdown of skin (2) Venous insufficiency of both lower extremities: CODE(S): I87.2 - Venous insufficiency (chronic) (peripheral) (3) Chronic dermatitis: CODE(S): L30.9 - Dermatitis, unspecified (4) Venous insufficiency: CODE(S): I87.2 - Venous insufficiency (chronic) (peripheral) (5) Urticaria: CODE(S): L50.9 - Urticaria, unspecified PLAN: Plan Chronic, bilateral lower extremity dermatitis. Still significant erythema. I am concerned for vasculitis given his history of CKD, liver disease/transplant. Positive ANCA antibodies. He states that the local [facility] does not accept his insurance and he is yet to schedule with anyone else. He was strongly advised to as soon as possible. For now, continue Xeroform and Unna boot. Aquacel to the open area on left medial great toe. Change on Thursday. Leg elevation, adequate protein intake, optimal diabetes control, and other dietary/lifestyle modifications recommended. His questions were answered and he was advised to call with any further questions or concerns. Follow-up with me in 1 week
[2022-03-17 11:19] VITALS: BP 155/90; PULSE 112; RESP 20; TEMP 36.5; BMI 37.1
[2022-03-20 11:07] VITALS: BP 158/94; PULSE 107; RESP 18; TEMP 36.1; BMI 37.1
--- NOTE | 2022-03-20 13:24 | PN.PCM_ITS ---
History of Present Illness Date of Service: 03/20/22 Chief Complaint: Bilateral lower extremity pain, redness and swelling. History of Wound: This is a 76 year-old white male who presents to the wound healing center today due to non healing bilateral lower extremity lesions. He states that his concerns have been present for over a year. Was seen at the wound center with no significant improvement and he was subsequently sent to see a [employer]. He states that he was seen weekly and had a Zinc oxide wrap placed again without any improvement. His main concerns are bilateral lower extremity, rash, itching, irritation, redness and swelling. He was sent by his PCP to [facility] where he was seen by ID. He states that he was placed on IV antibiotics but again, he states that he does not believe it made any difference. He denies chills, fever or otherwise feeling of unwell. Progress of Wound: No new concerns at this time. Stable. Still not scheduled with Rheumatology. Objective Data Objective Data Vital Signs: Vital Signs Temp Pulse Resp BP O2 Del Method 97 F L 107 H 18 158/94 H Room Air 03/20/22 11:07 03/20/22 11:07 03/20/22 11:07 03/20/22 11:07 03/20/22 11:07 Oxygen Delivery Method Room Air Weight: 230 lb Body Mass Index (BMI) 37.1 Charges/Coding Visit Charges Office Visits / Consults: 56408 OV L3 Est Physical Exam Const General Appearance: cooperative, comfortable and well developed Orientation / Consciousness: awake, oriented to person, oriented to place and oriented to time HEENT normocephalic, head/scalp atraumatic and hearing grossly normal bilaterally Head and Scalp: normal to inspection, normocephalic and atraumatic Eyes General Eye: normal appearance of both eyes Neck full ROM and supple General: normal visual inspection Resp normal respiratory effort Effort and Inspection: able to speak in complete sentences Neuro oriented x3, CN's II-XII intact bilaterally, moves all extremities and no focal motor deficits Psych mental status grossly normal Appearance: grossly normal Attitude: calm Activity / Motor Behavior: appropriate eye contact Debridement Note Debridement Note Post-Debridement Measurements and Additional Note: Post-Debridement Measurements/Treatment ILENE - Nurse 1 - General Ulcer Assessment Start: 02/20/22 10:42 Freq: Status: Active Protocol: BROOKE Activity Type Activity Date Activity User E-sign Co-sign Detail Recorded Client Recorded Date Recorded By Document 02/20/22 10:44 KR [id number] 02/20/22 10:51 KR Document 02/25/22 15:27 AK [id number] 02/25/22 15:28 AK Document 02/25/22 15:31 AK [id number] 02/25/22 15:32 AK Document 02/27/22 10:54 DL [id number] 02/27/22 11:01 DL Document 03/03/22 09:53 AK [id number] 03/03/22 09:55 AK Document 03/06/22 11:15 BMF [id number] 03/06/22 11:28 BMF Document 03/10/22 08:47 KR [id number] 03/10/22 08:49 KR Document 03/13/22 11:14 DL [id number] 03/13/22 11:28 DL Document 03/17/22 11:19 KR [id number] 03/17/22 11:27 KR Document 03/20/22 11:07 BMF [id number] 03/20/22 11:10 BMF 02/20/22 02/25/22 02/25/22 10:44 15:27 15:31 WC - Today's Visit Information Type of service Follow-up Visit Nurse-only (Physician/PLASTIC SURGERY SPECIALIST Visit ) Arrival Mode Ambulatory Ambulatory, Walker Transfer Assistance Patient Identification Verified (Name & Yes Yes ) Patient Requires Transmission-Based No Precautions Safety Precautions NA Finger Stick Blood Sugar(mg/dl) (if indicated): Blood Sugar Height and Weight Body Mass Index (BMI) 37.1 37.1 37.1 BMI Classification Obese Obese Obese Vital Signs Temperature (97.8 F-99.1 F) 97.0 F L 97.8 F Temperature Source Temporal Temporal Pulse Rate (60-100) 111 H Pulse Location Monitor Respiratory Rate (12-18) Respiratory rate source Oxygen Delivery Method Blood Pressure (90/60-120/80) 150/90 H Blood Pressure Mean (mm Hg) 110 Source Monitor Position Semi-Fowlers Blood Pressure Location Right Arm Comment used 2 xeroform to bilateral legs No where to chart since there are no ope History Since Last Visit- (Skip if this is Patient's initial visit) Have you changed medications since your No No last visit? Any new allergies or adverse reactions No No Had a fall/change in ADL's that may No No increase risk of falls Signs or symptoms of abuse and/or No No neglect since last visit Have you been in the hospital since your No No last visit? Has dressing in place as prescribed No Yes Has compression in place as prescribed Yes Yes Has offloadiing in place as prescribed N/A N/A Experienced any changes in pain level or No No management Left Footwear Regular Shoe Regular Shoe Right Footwear Regular Shoe Regular Shoe Other Footwear Pain Scale: 0-10 Numeric Is Patient Pain Free? Yes No Yes 02/27/22 03/03/22 03/06/22 10:54 09:53 11:15 WC - Today's Visit Information Type of service Follow-up Visit Follow-up Visit Follow-up Visit (Physician/PLASTIC SURGERY SPECIALIST (Physician/PLASTIC SURGERY SPECIALIST (Physician/PLASTIC SURGERY SPECIALIST ) ) ) Arrival Mode Ambulatory, Ambulatory Ambulatory Walker Transfer Assistance None None Patient Identification Verified (Name & Yes Yes Yes ) Patient Requires Transmission-Based No No No Precautions Safety Precautions NA Finger Stick Blood Sugar(mg/dl) (if not checked indicated): Blood Sugar Stated by Patient Height and Weight Body Mass Index (BMI) 37.1 37.1 37.1 BMI Classification Obese Obese Obese Vital Signs Temperature (97.8 F-99.1 F) 97.6 F L 97.2 F L 98 F Temperature Source Temporal Temporal Temporal Pulse Rate (60-100) 111 H 125 H Pulse Location Monitor Monitor Respiratory Rate (12-18) 20 H 16 Respiratory rate source Observation Observation Oxygen Delivery Method Room Air Blood Pressure (90/60-120/80) 178/116 H 140/82 H Blood Pressure Mean (mm Hg) 136 101 Source Monitor Monitor Position Sitting Blood Pressure Location Left Arm Comment History Since Last Visit- (Skip if this is Patient's initial visit) Have you changed medications since your No No No last visit? Any new allergies or adverse reactions No No No Had a fall/change in ADL's that may No No No increase risk of falls Signs or symptoms of abuse and/or No No No neglect since last visit Have you been in the hospital since your No No No last visit? Has dressing in place as prescribed Yes Yes Yes Has compression in place as prescribed Yes Yes Yes Has offloadiing in place as prescribed N/A N/A N/A Experienced any changes in pain level or No No No management Left Footwear Regular Shoe Diabetic Shoe Right Footwear Regular Shoe Diabetic Shoe Other Footwear Pain Scale: 0-10 Numeric Is Patient Pain Free? Yes Yes Yes 03/10/22 03/13/22 03/17/22 08:47 11:14 11:19 WC - Today's Visit Information Type of service Nurse-only Follow-up Visit Nurse-only Visit (Physician/PLASTIC SURGERY SPECIALIST Visit ) Arrival Mode Ambulatory Ambulatory, Ambulatory, Walker Walker Transfer Assistance None None Patient Identification Verified (Name & Yes Yes Yes ) Patient Requires Transmission-Based No No Precautions Safety Precautions Fall Prevention Finger Stick Blood Sugar(mg/dl) (if indicated): Blood Sugar Height and Weight Body Mass Index (BMI) 37.1 37.1 37.1 BMI Classification Obese Obese Obese Vital Signs Temperature (97.8 F-99.1 F) 97.3 F L 98.3 F 97.7 F L Temperature Source Temporal Temporal Temporal Pulse Rate (60-100) 78 117 H 112 H Pulse Location Monitor Monitor Monitor Respiratory Rate (12-18) 22 H 20 H Respiratory rate source Observation Observation Oxygen Delivery Method Blood Pressure (90/60-120/80) 150/83 H 149/86 H 155/90 H Blood Pressure Mean (mm Hg) 105 107 111 Source Monitor Monitor Monitor Position Semi-Fowlers Blood Pressure Location Left Arm Comment History Since Last Visit- (Skip if this is Patient's initial visit) Have you changed medications since your No No No last visit? Any new allergies or adverse reactions No No No Had a fall/change in ADL's that may No No No increase risk of falls Signs or symptoms of abuse and/or No No No neglect since last visit Have you been in the hospital since your No No No last visit? Has dressing in place as prescribed Yes No Yes Has compression in place as prescribed Yes No Yes Has offloadiing in place as prescribed N/A N/A Experienced any changes in pain level or No No No management Left Footwear Regular Shoe Regular Shoe Right Footwear Regular Shoe Regular Shoe Other Footwear Pain Scale: 0-10 Numeric Is Patient Pain Free? Yes Yes Yes 03/20/22 11:07 - Today's Visit Information Type of service Follow-up Visit (Physician/PLASTIC SURGERY SPECIALIST ) Arrival Mode Ambulatory, Walker Transfer Assistance None Patient Identification Verified (Name & No ) Patient Requires Transmission-Based Precautions Safety Precautions Finger Stick Blood Sugar(mg/dl) (if indicated): Blood Sugar Height and Weight Body Mass Index (BMI) 37.1 BMI Classification Obese Vital Signs Temperature (97.8 F-99.1 F) 97 F L Temperature Source Temporal Pulse Rate (60-100) 107 H Pulse Location Monitor Respiratory Rate (12-18) 18 Respiratory rate source Observation Oxygen Delivery Method Room Air Blood Pressure (90/60-120/80) 158/94 H Blood Pressure Mean (mm Hg) 115 Source Monitor Position Sitting Blood Pressure Location Left Arm Comment History Since Last Visit- (Skip if this is Patient's initial visit) Have you changed medications since your No last visit? Any new allergies or adverse reactions No Had a fall/change in ADL's that may No increase risk of falls Signs or symptoms of abuse and/or No neglect since last visit Have you been in the hospital since your No last visit? Has dressing in place as prescribed No Has compression in place as prescribed No Has offloadiing in place as prescribed N/A Experienced any changes in pain level or No management Left Footwear Diabetic Shoe Right Footwear Diabetic Shoe Other Footwear removed unnas last night to shower Pain Scale: 0-10 Numeric Is Patient Pain Free? Yes - Nurse 1 - General Ulcer Measurement Start: 02/20/22 10:42 Freq: Status: Active Protocol: Activity Type Activity Date Activity User E-sign Co-sign Detail Recorded Client Recorded Date Recorded By Document 02/20/22 10:44 KR [id number] 02/20/22 10:51 KR Document 02/27/22 10:54 DL [id number] 02/27/22 11:01 DL Document 03/06/22 11:15 BMF [id number] 03/06/22 11:28 BMF Document 03/13/22 11:14 DL [id number] 03/13/22 11:28 DL Document 03/17/22 11:19 KR [id number] 03/17/22 11:27 KR Document 03/20/22 11:07 [facility] [id number] 03/20/22 11:10 [facility] 02/20/22 02/27/22 03/06/22 10:44 10:54 11:15 Wound Center Nurse 1 #2 LLE cluster -Combined with other wound -Current Size (cm) - Length -Current Size (cm) - Width -Current Size (cm) - Depth -Total Square Cm -Epithelialization -Tunneling -Undermining/Tunneling -Circular Undermining -Exudate Amt -Exudate Type -Wound Margin -Granulation Amt -Granulation Quality -Slough/Fibrin -Necrosis Amt -Texture (Dea-wound Skin Appearance) -Moisture (Dea-wound Skin Appearance) -Color (Dea-wound Skin Appearance) -Temperature (Dea-wound Skin Appearance) -Tenderness on Palpation (Dea-wound Skin Appearance) -Ulcer Cleansing -Foul Odor after Cleansing #1 RLE cluster -Combined with other wound -Current Size (cm) - Length -Current Size (cm) - Width -Current Size (cm) - Depth -Total Square Cm -Photo Taken -Epithelialization -Tunneling -Undermining/Tunneling -Circular Undermining -Exudate Amt -Exudate Type -Wound Margin -Granulation Amt -Granulation Quality -Slough/Fibrin -Necrosis Amt -Texture (Dea-wound Skin Appearance) -Moisture (Dea-wound Skin Appearance) -Color (Dea-wound Skin Appearance) -Temperature (Dea-wound Skin Appearance) -Tenderness on Palpation (Dea-wound Skin Appearance) -Ulcer Cleansing -Foul Odor after Cleansing Lower Limb Edema Present Yes Right Calf (cm) 41 38 39.5 Right Ankle (cm) 23.9 23.5 23.7 Left Calf (cm) 32.5 37 39.7 Left Ankle (cm) 26.5 24.4 24.4 03/13/22 03/17/22 03/20/22 11:14 11:19 11:07 Wound Center Nurse 1 #2 LLE cluster -Combined with other wound No -Current Size (cm) - Length 0.1 -Current Size (cm) - Width 0.1 -Current Size (cm) - Depth 0.1 -Total Square Cm 0.01 -Epithelialization Large 67-100% -Tunneling No -Undermining/Tunneling No -Circular Undermining No -Exudate Amt Medium -Exudate Type Serous -Wound Margin Flat & Intact -Granulation Amt Large (67-100%) -Granulation Quality Red -Slough/Fibrin No -Necrosis Amt None Present (0 %) -Texture (Dea-wound Skin Appearance) Assessed, Excoriation, Scarring -Moisture (Dea-wound Skin Appearance) Assessed -Color (Dea-wound Skin Appearance) Assessed, Erythema -Temperature (Dea-wound Skin No Abnormality Appearance) (Pt Warm) -Tenderness on Palpation (Dea-wound No Skin Appearance) -Ulcer Cleansing Soap and Water -Foul Odor after Cleansing No #1 RLE cluster -Combined with other wound No -Current Size (cm) - Length 0.1 -Current Size (cm) - Width 0.1 -Current Size (cm) - Depth 0.1 -Total Square Cm 0.01 -Photo Taken No -Epithelialization Large 67-100% -Tunneling No -Undermining/Tunneling No -Circular Undermining No -Exudate Amt Medium -Exudate Type Serous -Wound Margin Distinct, Outline Attached -Granulation Amt Large (67-100%) -Granulation Quality Red -Slough/Fibrin No -Necrosis Amt None Present (0 %) -Texture (Dea-wound Skin Appearance) Assessed, Excoriation, Scarring -Moisture (Dea-wound Skin Appearance) Assessed -Color (Dea-wound Skin Appearance) Assessed, Erythema -Temperature (Dea-wound Skin No Abnormality Appearance) (Pt Warm) -Tenderness on Palpation (Dea-wound No Skin Appearance) -Ulcer Cleansing Soap and Water -Foul Odor after Cleansing No Lower Limb Edema Present Yes Right Calf (cm) 38 38.5 41.7 Right Ankle (cm) 24.2 24.5 23.7 Left Calf (cm) 38 37 42 Left Ankle (cm) 24.4 25.5 24.3 WC - Nurse 2 - General Ulcer CM Notes Start: 02/20/22 10:42 Freq: Status: Active Protocol: Activity Type Activity Date Activity User E-sign Co-sign Detail Recorded Client Recorded Date Recorded By Document 02/20/22 11:06 MW [id number] 02/20/22 11:09 MW Document 02/27/22 11:28 MW [id number] 02/27/22 11:30 MW Document 03/06/22 11:48 MW [id number] 03/06/22 11:50 MW Document 03/13/22 11:54 MW [id number] 03/13/22 11:57 MW Document 03/20/22 11:21 MW [id number] 03/20/22 11:26 MW 02/20/22 02/27/22 03/06/22 11:06 11:28 11:48 Wound Center Nurse 2 #2 LLE cluster -Time -Correct Patient -Correct Side, Site, Position -Correct Procedure -Procedure Performed -Tunneling -Circular Undermining -Wound/Ulcer Outcome #1 RLE cluster -Time -Correct Patient -Correct Side, Site, Position -Correct Procedure -Procedure Performed -Wound/Ulcer Outcome Pain Scale: 0-10 Numeric Is Patient Pain Free? Yes Yes Yes 03/13/22 03/20/22 11:54 11:21 Wound Center Nurse 2 #2 LLE cluster -Time 11:25 -Correct Patient Yes -Correct Side, Site, Position Yes -Correct Procedure Yes -Procedure Performed No -Tunneling No -Circular Undermining No -Wound/Ulcer Outcome Not Healed #1 RLE cluster -Time 11:26 -Correct Patient Yes -Correct Side, Site, Position Yes -Correct Procedure Yes -Procedure Performed No -Wound/Ulcer Outcome Not Healed Pain Scale: 0-10 Numeric Is Patient Pain Free? Yes Yes WC - Nurse 3 - General Ulcer D/C NN Start: 02/20/22 10:42 Freq: Status: Active Protocol: Activity Type Activity Date Activity User E-sign Co-sign Detail Recorded Client Recorded Date Recorded By Document 02/20/22 06:49 PL [id number] 02/21/22 06:50 PL Document 02/25/22 15:27 AK [id number] 02/25/22 15:28 AK Document 02/27/22 11:38 BM [id number] 02/27/22 11:39 BMF Document 03/03/22 09:53 AK [id number] 03/03/22 09:55 AK Document 03/06/22 12:07 BMF [id number] 03/06/22 12:08 BMF Document 03/10/22 08:47 KR [id number] 03/10/22 08:49 KR Document 03/13/22 12:09 MW [id number] 03/13/22 12:10 MW Document 03/17/22 11:19 KR [id number] 03/17/22 11:27 KR Document 03/17/22 11:36 DL [id number] 03/17/22 11:38 DL Document 03/20/22 11:39 MT [id number] 03/20/22 12:02 MT 02/20/22 02/25/22 02/27/22 06:49 15:27 11:38 Wound Care Nurse 3 #2 LLE cluster -Ulcer Cleansing -Other Dressing -Primary Dressing Covered/Secured with #1 RLE cluster -Ulcer Cleansing -Foul Odor after Cleansing -Other Dressing Bilateral -Lotion applied to leg before compression wrap -Multi-Layered Wrap Application Unna Boot - Unna Boot - Unna Boot - Bilateral ($) Bilateral ($) Bilateral ($) -Unna Boots (Bilat) ($) 2 2 2 -Stockings -Other UNNAS TIFFANIE PER DL ORACLE DATABASE ARCHITECT; XEROFORM TO RED AREAS Treatment Response Procedure Tolerated Well Vital Signs Temperature (97.8 F-99.1 F) 97.8 F Temperature Source Temporal Pulse Rate (60-100) Pulse Location Respiratory Rate (12-18) Respiratory rate source Blood Pressure (90/60-120/80) Blood Pressure Mean (mm Hg) Source Position Blood Pressure Location Pain Scale: 0-10 Numeric Is Patient Pain Free? Yes No Yes WC - Visit Discharge Discharge Condition Stable Stable Ambulatory Status Walker Ambulatory Transportation Private Auto ASSISTED LIVING TRANSPORT Accompanied by Medication Reconcilliation completed & Yes provided to patient/care provider Clinical Summary of Care Provided Yes Notes: Facility Type Other ASSISTED LIVING Orders Sent 03/03/22 03/06/22 03/10/22 09:53 12:07 08:47 Wound Care Nurse 3 #2 LLE cluster -Ulcer Cleansing -Other Dressing -Primary Dressing Covered/Secured with #1 RLE cluster -Ulcer Cleansing -Foul Odor after Cleansing -Other Dressing Bilateral -Lotion applied to leg before No Yes compression wrap -Multi-Layered Wrap Application Unna Boot - Unna Boot - Unna Boot - Bilateral ($) Bilateral ($) Bilateral ($) -Unna Boots (Bilat) ($) 2 2 2 -Stockings No -Other Treatment Response Procedure Tolerated Well Vital Signs Temperature (97.8 F-99.1 F) 97.2 F L 97.3 F L Temperature Source Temporal Temporal Pulse Rate (60-100) 78 Pulse Location Monitor Respiratory Rate (12-18) Respiratory rate source Blood Pressure (90/60-120/80) 150/83 H Blood Pressure Mean (mm Hg) 105 Source Monitor Position Semi-Fowlers Blood Pressure Location Left Arm Pain Scale: 0-10 Numeric Is Patient Pain Free? Yes Yes Yes WC - Visit Discharge Discharge Condition Stable Stable Stable Ambulatory Status Ambulatory Ambulatory Ambulatory Transportation Private Auto Private Auto Accompanied by [facility] Medication Reconcilliation completed & No provided to patient/care provider Clinical Summary of Care Provided Yes Notes: Facility Type Other assisted living Orders Sent 03/13/22 03/17/22 03/17/22 12:09 11:19 11:36 Wound Care Nurse 3 #2 LLE cluster -Ulcer Cleansing -Other Dressing Xeroform/ABD -Primary Dressing Covered/Secured with #1 RLE cluster -Ulcer Cleansing Soap and Water -Foul Odor after Cleansing No -Other Dressing xeroform/ABD Bilateral -Lotion applied to leg before compression wrap -Multi-Layered Wrap Application Multi-Layer Unna Boot - Comp - Bilat ($ Bilateral ($) ) -Unna Boots (Bilat) ($) 1 -Stockings -Other xeroform to red areas Treatment Response Procedure Procedure Tolerated Well Tolerated Well Vital Signs Temperature (97.8 F-99.1 F) 97.7 F L Temperature Source Temporal Pulse Rate (60-100) 112 H Pulse Location Monitor Respiratory Rate (12-18) 20 H Respiratory rate source Observation Blood Pressure (90/60-120/80) 155/90 H Blood Pressure Mean (mm Hg) 111 Source Monitor Position Blood Pressure Location Pain Scale: 0-10 Numeric Is Patient Pain Free? Yes Yes Yes WC - Visit Discharge Discharge Condition Stable Stable Ambulatory Status Ambulatory Ambulatory Transportation assisted living Private Auto transport Accompanied by Medication Reconcilliation completed & provided to patient/care provider Clinical Summary of Care Provided Notes: Dressing applied per Anisa Abarca LPN today in clinic Facility Type [facility] Facility Other assisted living Orders Sent Yes 03/20/22 11:39 Wound Care Nurse 3 #2 LLE cluster -Ulcer Cleansing Rinsed/ Irrigated with Saline -Other Dressing xeroform -Primary Dressing Covered/Secured with Dry Gauze, Secured with Tape #1 RLE cluster -Ulcer Cleansing -Foul Odor after Cleansing -Other Dressing Bilateral -Lotion applied to leg before compression wrap -Multi-Layered Wrap Application Unna Boot - Bilateral ($) -Unna Boots (Bilat) ($) 2 -Stockings -Other Treatment Response Vital Signs Temperature (97.8 F-99.1 F) Temperature Source Pulse Rate (60-100) Pulse Location Respiratory Rate (12-18) Respiratory rate source Blood Pressure (90/60-120/80) Blood Pressure Mean (mm Hg) Source Position Blood Pressure Location Pain Scale: 0-10 Numeric Is Patient Pain Free? 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 It does look better than it did last week. I am concerned for vasculitis given his history of CKD, liver diseas e/transplant. Positive ANCA antibodies. He states that the local [facility] does not accept his insurance and he is still yet to schedule with anyone else. Referral sent to [facility] per patient preference. He was strongly advised to as soon as possible. expander goal discussed with patient. He was advised that at some point ( soon ) we would have to discharge him from the wound center and he will need to continue compression and lower extremity care at home. He is yet to get compression. Insurance did not cover CircAid's. He was advised to get compression as plan will be to discharge him shortly from the wound center. For now, continue Xeroform and Unna boot. Aquacel to the open area on left medial great toe. Change on Thursday. Leg elevation, adequate protein intake, optimal diabetes control, and other dietary/lifestyle modifications recommended. His questions were answered and he was advised to call with any further questions or concerns. Follow-up with me in 1 week This note was generated with [employer] dictation software. It may contain incorrect words, spelling, and punctuation that were not noted in checking the note before signing.
== END 2022-03-21 23:59 | disposition home or self-care (01) ==
LOC: WC 10:45
PROVIDERS: PCP Internal Medicine; Visit Provider Internal Medicine
DX: I87.2 Venous insufficiency (chronic) (peripheral) (principal); Z94.4 Liver transplant status; L98.491 Non-pressure chronic ulcer of skin of other sites limited to breakdown of skin; M79.604 Pain in right leg; L50.9 Urticaria, unspecified; M79.605 Pain in left leg; M79.89 Other specified soft tissue disorders; R60.0 Localized edema; N18.9 Chronic kidney disease, unspecified
CPT/HCPCS: 29580; 29581; 99213; G0463

== ENCOUNTER → 2022-04-01 | Outpatient (REF) | payer MEDICARE, MEDICAID, SELFPAY ==
[2022-04-03 17:33] LABS: Perinuclear Ab (P-ANCA) <1:20 titer (Neg:<1:20)
== END ==
LOC: OLS.SWAL 05:00
PROVIDERS: PCP Internal Medicine
DX: I77.6 Arteritis, unspecified (principal)
CPT/HCPCS: 36415; 86256

== ENCOUNTER → 2022-04-03 | Outpatient (REF) | payer MEDICARE, MEDICAID, SELFPAY ==
[2022-04-03 10:06] LABS: Erythrocyte Sedimentation Rate 85 mm/hr (0-20)
[2022-04-03 10:16] LABS: Albumin, Serum 1.9 g/dL (3.2-5.0); BUN 52 mg/dL (7-18); BUN/Creat Ratio 11.4 RATIO (10-20); Calcium,Total 8.3 mg/dL (8.5-10.1); Chloride 105 mmol/L (98-107); Creatinine, Serum 4.57 mg/dL (0.70-1.30); EST Glomerular Filtration Rate 13 mL/min (>60); Est Glom Filt Rate - Afr Amer 16 mL/min (>60); Glucose 164 mg/dL (74-106); Hematocrit 33.5 % (40-54); Hemoglobin 10.6 g/dL (13.0-16.5); Mean Corp Hgb Conc 31.6 g/dL (32-36); Mean Corpuscular Hgb 31.3 pg (27.0-32.0); Mean Corpuscular Volume 98.8 fL (80-94); Mean Platelet Vol. 11.1 fl (6.2-12.0); Platelet Count 324 K/mm3 (150-450); Potassium 4.1 mmol/L (3.5-5.1); Red Blood Count 3.39 M/mm3 (4.6-6.2); Sodium Level 137 mmol/L (136-145); White Blood Count 9.5 K/mm3 (4.4-11.0)
[2022-04-03 10:48] LABS: Protein, Urine (Random) 354.2 mg/dL (<11.9); Protein:Creat Ratio 3736 mg/g CRE (0-200)
[2022-04-03 12:34] LABS: Color, Urine Yellow (Yellow); Glucose, Dipstick Normal (Normal); Ketone-Dipstick Negative (Negative); Leukocyte Esterase-Dipstick Negative /ul (Negative); Nitrite-Dipstick Negative (Negative); Occult Blood-Urine 10 /ul (Negative); Protein-Dipstick 100 mg/dl (Negative); Specific Gravity, Urine 1.015 (1.002-1.030); Urine Bilirubin Dipstick Negative (Negative); Urine Clarity Clear (Clear); Urine Urobilinogen Normal (Normal)
== END ==
LOC: OLS.SWAL 07:35
PROVIDERS: PCP Internal Medicine
DX: N18.9 Chronic kidney disease, unspecified (principal); Z79.899 Other long term (current) drug therapy
CPT/HCPCS: 36415; 80069; 81002; 82570; 84156; 85027; 85652; 86140

== ENCOUNTER → 2022-04-08 | Outpatient (REF) | payer MEDICARE, MEDICAID, SELFPAY ==
[2022-04-08 09:17] LABS: Hematocrit 34.5 % (40-54); Hemoglobin 10.5 g/dL (13.0-16.5); Mean Corp Hgb Conc 30.4 g/dL (32-36); Mean Corpuscular Hgb 30.3 pg (27.0-32.0); Mean Corpuscular Volume 99.7 fL (80-94); Platelet Count 283 K/mm3 (150-450); RBC Distribution Width CV 14.3 % (11.6-14.6); RBC Distribution Width SD 51.8 fl (35.1-43.9); Red Blood Count 3.46 M/mm3 (4.6-6.2); White Blood Count 9.5 K/mm3 (4.4-11.0)
[2022-04-08 09:30] LABS: BUN 54 mg/dL (7-18); BUN/Creat Ratio 11.3 RATIO (10-20); Calcium,Total 8.6 mg/dL (8.5-10.1); Chloride 109 mmol/L (98-107); Creatinine, Serum 4.77 mg/dL (0.70-1.30); EST Glomerular Filtration Rate 13 mL/min (>60); Est Glom Filt Rate - Afr Amer 15 mL/min (>60); Glucose 105 mg/dL (74-106); Potassium 4.7 mmol/L (3.5-5.1); Sodium Level 140 mmol/L (136-145)
[2022-04-08 09:45] LABS: Protein, Urine (Random) 288.7 mg/dL (<11.9); Protein:Creat Ratio 5489 mg/g CRE (0-200)
[2022-04-08 09:49] LABS: Erythrocyte Sedimentation Rate 89 mm/hr (0-20)
== END ==
LOC: OLS.SWAL 05:00
PROVIDERS: PCP Internal Medicine
DX: N18.4 Chronic kidney disease, stage 4 (severe) (principal); E11.22 Type 2 diabetes mellitus with diabetic chronic kidney disease; D64.9 Anemia, unspecified
CPT/HCPCS: 36415; 80069; 82570; 84156; 85027; 85652; 86140

== ENCOUNTER 2022-04-10 10:30 | Outpatient (RCR) | payer MEDICARE, MEDICAID, SELFPAY ==
[2022-03-22 01:36] VITALS: BP 158/94; PULSE 107; RESP 18; TEMP 36.1; BMI 37.1
[2022-03-24 15:15] VITALS: BP 138/69; PULSE 125; TEMP 35.7; BMI 37.1
--- NOTE | 2022-03-24 15:21 | WC ---
Farzana saw pt per my request. She changed the 3m order to adaptic over raw areas and then super absorbers, kerlix, tubi then ronan wraps.
--- NOTE | 2022-03-24 15:29 | PN.PCM_ITS ---
History of Present Illness Date of Service: 03/24/22 Chief Complaint: Bilateral lower extremity pain, redness and swelling. History of Wound: This is a 76 year-old white male who presents to the wound healing center today due to non healing bilateral lower extremity lesions. He states that his concerns have been present for over a year. Was seen at the wound center with no significant improvement and he was subsequently sent to see a Sporting Goods Sales Manager. He states that he was seen weekly and had a Zinc oxide wrap placed again without any improvement. His main concerns are bilateral lower extremity, rash, itching, irritation, redness and swelling. He was sent by his PCP to [facility] where he was seen by ID. He states that he was placed on IV antibiotics but again, he states that he does not believe it made any difference. He denies chills, fever or otherwise feeling of unwell. Progress of Wound: Patient comes into the wound center today for a nurse visit to change his Unna boot dressings. I was asked to evaluate the patient because of the severity of the redness of his bilateral lower legs. Legs are very excoriated with areas of shiny, fragile epithelial skin. He is having significant drainage. His wraps were changed yesterday and he comes in today with them soaking wet with drainage into his shoes. There is no warmth to the skin and patient is denying fever, chills, nausea and vomiting. Objective Data Objective Data Vital Signs: Vital Signs Temp Pulse Resp BP 96.2 F L 125 H 18 138/69 H 03/24/22 15:15 03/24/22 15:15 03/22/22 01:36 03/24/22 15:15 Weight: 230 lb Body Mass Index (BMI) 37.1 Charges/Coding Visit Charges Office Visits / Consults: 40687 OV L3 Est Physical Exam Const alert and oriented x3 HEENT normocephalic Resp normal respiratory effort and clear to auscultation bilaterally Effort and Inspection: able to speak in complete sentences Cardio regular rate and regular rhythm GI normal to inspection, nondistended, normoactive bowel sounds and non-tender Extremity normal capillary refill Extremity Narrative: +1-+2 edema bilaterally. Pedal pulses palpable bilaterally. Skin Skin Narrative: Legs are very excoriated bilaterally with areas of shiny, fragile skin that is draining a large amount of drainage. His legs are not hot to touch, there is no odor. Neuro oriented x3 Sensorium / Orientation: awake and alert Psych affect normal Debridement Note Debridement Note No debridement was completed: No debridement was completed today Post-Debridement Measurements and Additional Note: Post-Debridement Measurements/Treatment - Nurse 1 - General Ulcer Assessment Start: 03/24/22 14:49 Freq: Status: Active Protocol: MAGDIEXRichard Activity Type Activity Date Activity User E-sign Co-sign Detail Recorded Client Recorded Date Recorded By Document 03/24/22 15:15 TN [id number] 03/24/22 15:24 TN 03/24/22 15:15 - Today's Visit Information Type of service Follow-up Visit (Physician/AV SPECIALIST ) Arrival Mode Ambulatory Patient Identification Verified (Name & Yes ) Patient Requires Transmission-Based No Precautions Height and Weight Body Mass Index (BMI) 37.1 BMI Classification Obese Vital Signs Temperature (97.8 F-99.1 F) 96.2 F L Temperature Source Temporal Pulse Rate (60-100) 125 H Pulse Location Monitor Blood Pressure (90/60-120/80) 138/69 H Blood Pressure Mean (mm Hg) 92 Source Monitor History Since Last Visit- (Skip if this is Patient's initial visit) Have you changed medications since your No last visit? Any new allergies or adverse reactions No Had a fall/change in ADL's that may No increase risk of falls Signs or symptoms of abuse and/or No neglect since last visit Have you been in the hospital since your No last visit? Has dressing in place as prescribed Yes Has compression in place as prescribed Yes Has offloadiing in place as prescribed N/A Experienced any changes in pain level or No management Left Footwear Regular Shoe Right Footwear Regular Shoe Pain Scale: 0-10 Numeric Is Patient Pain Free? Yes [facility] Nurse 1 - General Ulcer Measurement Start: 03/24/22 14:49 Freq: Status: Active Protocol: Activity Type Activity Date Activity User E-sign Co-sign Detail Recorded Client Recorded Date Recorded By Document 03/24/22 15:15 AIYANA [id number] 03/24/22 15:24 AK 03/24/22 15:15 Wound Center Nurse 1 #2 LLE cluster -Exudate Amt Large -Exudate Type Yellow/Green -Texture (Dea-wound Skin Appearance) Excoriation -Moisture (Dea-wound Skin Appearance) Weeping -Color (Dea-wound Skin Appearance) Erythema -Tenderness on Palpation (Dea-wound Yes Skin Appearance) -Ulcer Cleansing Soap and Water -Foul Odor after Cleansing No #1 RLE cluster -Combined with other wound No -Photo Taken No -Tunneling No -Undermining/Tunneling No -Circular Undermining No -Exudate Amt Large -Exudate Type Yellow/Green -Granulation Quality N/A -Slough/Fibrin No -Necrosis Amt None Present (0 %) -Structure Exposed N/A -Texture (Dea-wound Skin Appearance) Excoriation -Moisture (Dea-wound Skin Appearance) Weeping -Color (Dea-wound Skin Appearance) Erythema -Temperature (Dea-wound Skin No Abnormality Appearance) (Pt Warm) -Tenderness on Palpation (Dea-wound Yes Skin Appearance) -Ulcer Cleansing Soap and Water -Foul Odor after Cleansing No -Anesthetic Used 5% Lidocaine Gel -Wound Comment(s) Red, shiny, raw skin with saturated yellow/green dressings. 03/24/22 15:21 Wound Center by Isaac Rodriguez saw pt per my request. She changed the 3m order to adaptic over raw areas and then super absorbers, kerlix, tubi then kai wraps. Initialized on 03/24/22 15:21 - END OF NOTE ILENE - Nurse 2 - General Ulcer CM Notes Start: 03/24/22 14:49 Freq: Status: Active Protocol: Activity Type Activity Date Activity User E-sign Co-sign Detail Recorded Client Recorded Date Recorded By Document 03/24/22 14:49 ORI [id number] 03/24/22 14:49 ORI 03/24/22 14:49 Wound Center Nurse 2 #2 LLE cluster -Correct Patient No -Correct Side, Site, Position No -Correct Procedure No -Procedure Performed No -Wound/Ulcer Outcome Not Healed #1 RLE cluster -Correct Patient No -Correct Side, Site, Position No -Correct Procedure No -Procedure Performed No -Wound/Ulcer Outcome Not Healed Pain Scale: 0-10 Numeric Is Patient Pain Free? Yes ILENE - Nurse 3 - General Ulcer D/C NN Start: 03/24/22 14:49 Freq: Status: Active Protocol: Activity Type Activity Date Activity User E-sign Co-sign Detail Recorded Client Recorded Date Recorded By Document 03/24/22 15:15 AIYANA [id number] 03/24/22 15:24 [place] 03/24/22 15:15 Vital Signs Temperature (97.8 F-99.1 F) 96.2 F L Temperature Source Temporal Pulse Rate (60-100) 125 H Pulse Location Monitor Blood Pressure (90/60-120/80) 138/69 H Blood Pressure Mean (mm Hg) 92 Source Monitor Pain Scale: 0-10 Numeric Is Patient Pain Free? Yes Wound Care Nurse 3 #2 LLE cluster -Ulcer Cleansing Rinsed/ Irrigated with Saline -Foul Odor after Cleansing No -Negative Pressure Wound Therapy N/A -Primary Dressing Applied NonAdherent Contact Layer -Primary Dressing Covered/Secured with Dry Gauze & Roll Gauze, Secured with Tape #1 RLE cluster -Ulcer Cleansing Rinsed/ Irrigated with Saline -Foul Odor after Cleansing No -Negative Pressure Wound Therapy N/A -Primary Dressing Applied NonAdherent Contact Layer -Primary Dressing Covered/Secured with Dry Gauze & Roll Gauze, Secured with Tape bilateral -Compression Wrap Kai Wrap WC - Visit Discharge Discharge Condition Stable Ambulatory Status Ambulatory Medication Reconcilliation completed & Yes provided to patient/care provider Clinical Summary of Care Provided Yes Assessment/Plan Assessment/Plan (1) Superficial ulcer of skin: CODE(S): L98.491 - Non-pressure chronic ulcer of skin of other sites limited to breakdown of skin (2) Venous insufficiency of both lower extremities: CODE(S): I87.2 - Venous insufficiency (chronic) (peripheral) (3) Chronic dermatitis: CODE(S): L30.9 - Dermatitis, unspecified (4) Venous insufficiency: CODE(S): I87.2 - Venous insufficiency (chronic) (peripheral) (5) Urticaria: CODE(S): L50.9 - Urticaria, unspecified PLAN: Plan Patient come in today for a nurse's visit. I was asked to evaluate the patient due to the severity of the redness and drainage on his bilateral legs. I do not believe this a cellulitis. It most likely is caused from too much drainage being stagnant on his skin. Will stop the Vianca boots and place adaptic to his lower legs with super absorbers daily. Place a single tubigrip to help hold the dressings in place and then place KAI wrap for compression. These should be changed daily after washing legs with soap and water and drying before the dr martha are placed. He will follow up with Dr. Quintana on . After the patient left we received a call from Dr. Meeks's office asking if the is a chance the patient has an infection because the patient is scheduled to have an AV fistula placed and they want to make sure there is no infection at the time of the fistula surgery. Will pass this information on to Dr. Quintana so she can decide if a culture would be necessary at his next appointment.
[2022-03-27 10:20] VITALS: BP 128/73; PULSE 117; RESP 18; TEMP 36.4; O2SAT 96; BMI 37.1
--- NOTE | 2022-03-27 12:46 | PN.PCM_ITS ---
History of Present Illness Date of Service: 03/27/22 Chief Complaint: Bilateral lower extremity pain, redness and swelling. History of Wound: This is a 76 year-old white male who presents to the wound healing center today due to non healing bilateral lower extremity lesions. He states that his concerns have been present for over a year. Was seen at the wound center with no significant improvement and he was subsequently sent to see a Sfdc Developer. He states that he was seen weekly and had a Zinc oxide wrap placed again without any improvement. His main concerns are bilateral lower extremity, rash, itching, irritation, redness and swelling. He was sent by his PCP to [facility] where he was seen by ID. He states that he was placed on IV antibiotics but again, he states that he does not believe it made any difference. He denies chills, fever or otherwise feeling of unwell. Progress of Wound: No new concerns at this time. Dressing Changes made on Thursday due to concerns for possibly worsening erythema and drainage. Patient states that there has been no significant change with the new/daily dressing changes. Feels well. Objective Data Objective Data Vital Signs: Vital Signs Temp Pulse Resp BP Pulse Ox O2 Del Method 97.5 F L 117 H 18 128/73 H 96 Room Air 03/27/22 10:20 03/27/22 10:20 03/27/22 10:20 03/27/22 10:20 03/27/22 10:20 03/27/22 10:20 Oxygen Delivery Method Room Air Weight: 230 lb Body Mass Index (BMI) 37.1 Charges/Coding Visit Charges Office Visits / Consults: 42043 OV L3 Est Physical Exam Const General Appearance: cooperative, comfortable and well developed Orientation / Consciousness: awake, oriented to person, oriented to place and oriented to time HEENT normocephalic, head/scalp atraumatic and hearing grossly normal bilaterally Head and Scalp: normal to inspection, normocephalic and atraumatic Eyes General Eye: normal appearance of both eyes Neck full ROM and supple General: normal visual inspection Resp normal respiratory effort Effort and Inspection: able to speak in complete sentences Neuro oriented x3, CN's II-XII intact bilaterally, moves all extremities and no focal motor deficits Psych mental status grossly normal Appearance: grossly normal Attitude: calm Activity / Motor Behavior: appropriate eye contact Debridement Note Debridement Note Post-Debridement Measurements and Additional Note: Post-Debridement Measurements/Treatment - Nurse 1 - General Ulcer Assessment Start: 03/24/22 14:49 Freq: Status: Active Protocol: BROOKE Activity Type Activity Date Activity User E-sign Co-sign Detail Recorded Client Recorded Date Recorded By Document 03/24/22 15:15 AIYANA [id number] 03/24/22 15:24 AK Document 03/27/22 10:20 [place] [id number] 03/27/22 10:36 [place] 03/24/22 03/27/22 15:15 10:20 WC - Today's Visit Information Type of service Follow-up Visit Follow-up Visit (Physician/IMPORTER OR EXPORTER (Physician/IMPORTER OR EXPORTER ) ) Arrival Mode Ambulatory Ambulatory Transfer Assistance None Patient Identification Verified (Name & Yes Yes ) Patient Requires Transmission-Based No No Precautions Height and Weight Body Mass Index (BMI) 37.1 37.1 BMI Classification Obese Obese Vital Signs Temperature (97.8 F-99.1 F) 96.2 F L 97.5 F L Temperature Source Temporal Temporal Pulse Rate (60-100) 125 H 117 H Pulse Location Monitor Monitor Respiratory Rate (12-18) 18 Respiratory rate source Observation Pulse Oximetry 96 Oxygen Delivery Method Room Air Blood Pressure (90/60-120/80) 138/69 H 128/73 H Blood Pressure Mean (mm Hg) 92 91 Source Monitor Monitor Position Sitting History Since Last Visit- (Skip if this is Patient's initial visit) Have you changed medications since your No No last visit? Any new allergies or adverse reactions No No Had a fall/change in ADL's that may No No increase risk of falls Signs or symptoms of abuse and/or No No neglect since last visit Have you been in the hospital since your No No last visit? Has dressing in place as prescribed Yes Yes Has compression in place as prescribed Yes Yes Has offloadiing in place as prescribed N/A Yes Experienced any changes in pain level or No No management Left Footwear Regular Shoe Regular Shoe Right Footwear Regular Shoe Regular Shoe Pain Scale: 0-10 Numeric Is Patient Pain Free? Yes Yes - Nurse 1 - General Ulcer Measurement Start: 03/24/22 14:49 Freq: Status: Active Protocol: Activity Type Activity Date Activity User E-sign Co-sign Detail Recorded Client Recorded Date Recorded By Document 03/24/22 15:15 AK [id number] 03/24/22 15:24 AK Document 03/27/22 10:20 [place] [id number] 03/27/22 10:36 [place] 03/24/22 03/27/22 15:15 10:20 Wound Center Nurse 1 #2 LLE cluster -Combined with other wound No -Current Size (cm) - Length 0.1 -Current Size (cm) - Width 0.1 -Current Size (cm) - Depth 0.1 -Total Square Cm 0.01 -Date of Last Picture (Recall this 03/27/22 field) -Photo Taken Yes -Epithelialization Large 67-100% -Tunneling No -Undermining/Tunneling No -Circular Undermining No -Exudate Amt Large Large -Exudate Type Yellow/Green Serosanguineous -Wound Margin Distinct, Outline Attached -Texture (Dea-wound Skin Appearance) Excoriation Assessed, Scarring -Moisture (Dea-wound Skin Appearance) Weeping Assessed, Weeping,Dry/ Scaly -Color (Dea-wound Skin Appearance) Erythema Assessed, Erythema -Temperature (Dea-wound Skin No Abnormality Appearance) (Pt Warm) -Tenderness on Palpation (Dea-wound Yes Yes Skin Appearance) -Ulcer Cleansing Soap and Water Soap and Water -Foul Odor after Cleansing No No -Wound Comment(s) legs ^ red, excoriated #1 RLE cluster -Combined with other wound No No -Current Size (cm) - Length 0.1 -Current Size (cm) - Width 0.1 -Current Size (cm) - Depth 0.1 -Total Square Cm 0.01 -Date of Last Picture (Recall this 03/27/22 field) -Photo Taken No Yes -Epithelialization Large 67-100% -Tunneling No No -Undermining/Tunneling No No -Circular Undermining No No -Exudate Amt Large Medium -Exudate Type Yellow/Green Serosanguineous -Granulation Quality N/A -Slough/Fibrin No -Necrosis Amt None Present (0 %) -Structure Exposed N/A -Texture (Dea-wound Skin Appearance) Excoriation Assessed, Scarring -Moisture (Dea-wound Skin Appearance) Weeping Assessed, Weeping -Color (Dea-wound Skin Appearance) Erythema Assessed, Erythema -Temperature (Dea-wound Skin No Abnormality No Abnormality Appearance) (Pt Warm) (Pt Warm) -Tenderness on Palpation (Dea-wound Yes No Skin Appearance) -Ulcer Cleansing Soap and Water Soap and Water -Foul Odor after Cleansing No No -Anesthetic Used 5% Lidocaine Gel -Wound Comment(s) Red, shiny, raw legs ^ red, skin with excoriated saturated yellow/green dressings. Lower Limb Edema Present Yes Right Calf (cm) 41 Right Ankle (cm) 24.5 Left Calf (cm) 41 Left Ankle (cm) 26 03/24/22 15:21 Wound Center by Isaac Rodriguez saw pt per my request. She changed the 3m order to adaptic over raw areas and then super absorbers, kerlix, tubi then kai wraps. Initialized on 03/24/22 15:21 - END OF NOTE WC - Nurse 2 - General Ulcer CM Notes Start: 03/24/22 14:49 Freq: Status: Active Protocol: Activity Type Activity Date Activity User E-sign Co-sign Detail Recorded Client Recorded Date Recorded By Document 03/24/22 14:49 [id number] 03/24/22 14:49 Document 03/27/22 11:10 MW [id number] 03/27/22 11:13 MW 03/24/22 03/27/22 14:49 11:10 Wound Center Nurse 2 #2 LLE cluster -Time 11:12 -Correct Patient No Yes -Correct Side, Site, Position No Yes -Correct Procedure No Yes -Procedure Performed No No -Wound/Ulcer Outcome Not Healed Not Healed #1 RLE cluster -Time 11:12 -Correct Patient No Yes -Correct Side, Site, Position No Yes -Correct Procedure No Yes -Procedure Performed No No -Wound/Ulcer Outcome Not Healed Not Healed Pain Scale: 0-10 Numeric Is Patient Pain Free? Yes Yes ILENE - Nurse 3 - General Ulcer D/C NN Start: 03/24/22 14:49 Freq: Status: Active Protocol: Activity Type Activity Date Activity User E-sign Co-sign Detail Recorded Client Recorded Date Recorded By Document 03/24/22 15:15 AK [id number] 03/24/22 15:24 AK Document 03/27/22 11:25 BMF [id number] 03/27/22 11:29 BMF Edit Result 03/27/22 11:25 BMF (1) [id number] 03/27/22 11:34 BMF (1) #2 LLE cluster - Optilok 8x12 1 => 2 03/24/22 03/27/22 15:15 11:25 Vital Signs Temperature (97.8 F-99.1 F) 96.2 F L Temperature Source Temporal Pulse Rate (60-100) 125 H Pulse Location Monitor Blood Pressure (90/60-120/80) 138/69 H Blood Pressure Mean (mm Hg) 92 Source Monitor Pain Scale: 0-10 Numeric Is Patient Pain Free? Yes Yes Wound Care Nurse 3 #2 LLE cluster -Ulcer Cleansing Rinsed/ Rinsed/ Irrigated with Irrigated with Saline Saline -Foul Odor after Cleansing No No -Negative Pressure Wound Therapy N/A -Primary Dressing Applied NonAdherent NonAdherent Contact Layer Contact Layer, Optilok 8x12 -Other Dressing ABD -Primary Dressing Covered/Secured with Dry Gauze & Roll Gauze, Secured with Tape -Other Covering DRSG PER [place] RN -Optilok 8x12 2 #1 RLE cluster -Ulcer Cleansing Rinsed/ Rinsed/ Irrigated with Irrigated with Saline Saline -Foul Odor after Cleansing No No -Negative Pressure Wound Therapy N/A -Primary Dressing Applied NonAdherent NonAdherent Contact Layer Contact Layer, Optilok 6.5x10 -Other Dressing ABD -Primary Dressing Covered/Secured with Dry Gauze & Roll Gauze, Secured with Tape -Other Covering PER [place] RN -Optilok 6.5x10 2 BLE -Compression Wrap Kai Wrap -Tubular Bandage Single Layer -Size of Tubigrip Used Size E -Size E ($) 2 -Other KAI OVER TUBIS bilateral -Compression Wrap Kai Wrap Treatment Response Procedure Tolerated Well WC - Visit Discharge Discharge Condition Stable Stable Ambulatory Status Ambulatory Ambulatory Transportation Private Auto Medication Reconcilliation completed & Yes provided to patient/care provider Clinical Summary of Care Provided Yes Assessment/Plan Assessment/Plan (1) Superficial ulcer of skin: CODE(S): L98.491 - Non-pressure chronic ulcer of skin of other sites limited to breakdown of skin (2) Venous insufficiency of both lower extremities: CODE(S): I87.2 - Venous insufficiency (chronic) (peripheral) (3) Chronic dermatitis: CODE(S): L30.9 - Dermatitis, unspecified (4) Venous insufficiency: CODE(S): I87.2 - Venous insufficiency (chronic) (peripheral) (5) Urticaria: CODE(S): L50.9 - Urticaria, unspecified PLAN: Plan Chronic, bilateral lower extremity dermatitis and erythema. As above, dressing changes changed at his last visit earlier in the week due to concern for worsened erythema and drainage. Patient however states that the drainage and erythema is pretty much the same however he likes the new dressing changes because he can take a shower daily. On examination, erythema and drainage does appear the same as it has been. [facility] rheumatology does not accept his insurance so we will refer him to Dr. Ponce with the [facility]. Still concerned for vasculitic process given his history of CKD, liver disease/transplant and Positive ANCA antibodies. No concern at this time for an infection. He has been admitted recently at least twice and given 2 rounds of IV antibiotics with no change. This is not an infectious process. No specific open ulceration. Once established with rheumatology, we will discharge him from the wound center with continued dressing changes at his facility. Continue Adaptic, superabsorbent dressing, Tubigrip and Kai wrap for compression. Continue leg elevation, adequate protein intake, optimal diabetes control, and other dietary/lifestyle modifications recommended. His questions were answered and he was advised to call with any further questions or concerns. Follow-up with me in 2 weeks. This note was generated with Maiyet dictation software. It may contain incorrect words, spelling, and punctuation that were not noted in checking the note before signing.
[2022-04-10 11:10] VITALS: BP 159/94; PULSE 111; RESP 16; TEMP 36.4; BMI 37.1
--- NOTE | 2022-04-10 12:50 | PN.PCM_ITS ---
History of Present Illness Date of Service: 04/10/22 Chief Complaint: Bilateral lower extremity pain, redness and swelling. History of Wound: This is a 76 year-old white male who presents to the wound healing center today due to non healing bilateral lower extremity lesions. He states that his concerns have been present for over a year. Was seen at the wound center with no significant improvement and he was subsequently sent to see a Credit Card Control Clerk. He states that he was seen weekly and had a Zinc oxide wrap placed again without any improvement. His main concerns are bilateral lower extremity, rash, itching, irritation, redness and swelling. He was sent by his PCP to [facility] where he was seen by ID. He states that he was placed on IV antibiotics but again, he states that he does not believe it made any difference. He denies chills, fever or otherwise feeling of unwell. Progress of Wound: No new concerns at this time. Since his last visit, has had only 2 dressing changes. 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 Objective Data Objective Data Vital Signs: Vital Signs Temp Pulse Resp BP Pulse Ox O2 Del Method 97.5 F L 111 H 16 159/94 H 96 Room Air 04/10/22 11:10 04/10/22 11:10 04/10/22 11:10 04/10/22 11:10 03/27/22 10:20 04/10/22 11:10 Oxygen Delivery Method Room Air Weight: 230 lb Body Mass Index (BMI) 37.1 Charges/Coding Visit Charges Office Visits / Consults: 80921 OV L3 Est Physical Exam Const General Appearance: cooperative, comfortable and well developed Orientation / Consciousness: awake, oriented to person, oriented to place and oriented to time HEENT normocephalic, head/scalp atraumatic and hearing grossly normal bilaterally Head and Scalp: normal to inspection, normocephalic and atraumatic Eyes General Eye: normal appearance of both eyes Neck full ROM and supple General: normal visual inspection Resp normal respiratory effort Effort and Inspection: able to speak in complete sentences Neuro oriented x3, CN's II-XII intact bilaterally, moves all extremities and no focal motor deficits Psych mental status grossly normal Appearance: grossly normal Attitude: calm Activity / Motor Behavior: appropriate eye contact Debridement Note Debridement Note Post-Debridement Measurements and Additional Note: Post-Debridement Measurements/Treatment WC - Nurse 1 - General Ulcer Assessment Start: 03/24/22 14:49 Freq: Status: Active Protocol: [email or web address].[email or web address] Activity Type Activity Date Activity User E-sign Co-sign Detail Recorded Client Recorded Date Recorded By Document 03/24/22 15:15 AK [id number] 03/24/22 15:24 AK Document 03/27/22 10:20 MT [id number] 03/27/22 10:36 MT Document 04/10/22 11:10 [facility] [id number] 04/10/22 11:21 BMF 03/24/22 03/27/22 04/10/22 15:15 10:20 11:10 WC - Today's Visit Information Type of service Follow-up Visit Follow-up Visit Follow-up Visit (Physician/BLASTER HELPER (Physician/BLASTER HELPER (Physician/BLASTER HELPER ) ) ) Arrival Mode Ambulatory Ambulatory Ambulatory, Walker Transfer Assistance None None Patient Identification Verified (Name & Yes Yes Yes ) Patient Requires Transmission-Based No No No Precautions Height and Weight Body Mass Index (BMI) 37.1 37.1 37.1 BMI Classification Obese Obese Obese Vital Signs Temperature (97.8 F-99.1 F) 96.2 F L 97.5 F L 97.5 F L Temperature Source Temporal Temporal Temporal Pulse Rate (60-100) 125 H 117 H 111 H Pulse Location Monitor Monitor Monitor Respiratory Rate (12-18) 18 16 Respiratory rate source Observation Observation Pulse Oximetry 96 Oxygen Delivery Method Room Air Room Air Blood Pressure (90/60-120/80) 138/69 H 128/73 H 159/94 H Blood Pressure Mean (mm Hg) 92 91 115 Source Monitor Monitor Monitor Position Sitting Sitting Blood Pressure Location Left Arm History Since Last Visit- (Skip if this is Patient's initial visit) Have you changed medications since your No No No last visit? Any new allergies or adverse reactions No No No Had a fall/change in ADL's that may No No No increase risk of falls Signs or symptoms of abuse and/or No No No neglect since last visit Have you been in the hospital since your No No No last visit? Has dressing in place as prescribed Yes Yes Yes Has compression in place as prescribed Yes Yes No Has offloadiing in place as prescribed N/A Yes N/A Experienced any changes in pain level or No No No management Left Footwear Regular Shoe Regular Shoe Diabetic Shoe Right Footwear Regular Shoe Regular Shoe Diabetic Shoe Pain Scale: 0-10 Numeric Is Patient Pain Free? Yes Yes Yes WC - Nurse 1 - General Ulcer Measurement Start: 03/24/22 14:49 Freq: Status: Active Protocol: Activity Type Activity Date Activity User E-sign Co-sign Detail Recorded Client Recorded Date Recorded By Document 03/24/22 15:15 AK [id number] 03/24/22 15:24 AK Document 03/27/22 10:20 [place] [id number] 03/27/22 10:36 MT Document 04/10/22 11:10 [facility] [id number] 04/10/22 11:21 BMF 03/24/22 03/27/22 04/10/22 15:15 10:20 11:10 Wound Center Nurse 1 #2 LLE cluster -Combined with other wound No No -Current Size (cm) - Length 0.1 0.1 -Current Size (cm) - Width 0.1 0.1 -Current Size (cm) - Depth 0.1 0.1 -Total Square Cm 0.01 0.01 -Date of Last Picture (Recall this 03/27/22 field) -Photo Taken Yes -Epithelialization Large 67-100% Medium 34-66% -Tunneling No No -Undermining/Tunneling No No -Circular Undermining No No -Exudate Amt Large Large Large -Exudate Type Yellow/Green Serosanguineous Serosanguineous -Wound Margin Distinct, Outline Attached -Texture (Dea-wound Skin Appearance) Excoriation Assessed, Assessed, Scarring Excoriation, Scarring -Moisture (Dea-wound Skin Appearance) Weeping Assessed, Assessed, Weeping,Dry/ Weeping,Dry/ Scaly Scaly -Color (Dea-wound Skin Appearance) Erythema Assessed, Assessed, Erythema Erythema -Temperature (Dea-wound Skin No Abnormality No Abnormality Appearance) (Pt Warm) (Pt Warm) -Tenderness on Palpation (Dea-wound Yes Yes No Skin Appearance) -Ulcer Cleansing Soap and Water Soap and Water Soap and Water -Foul Odor after Cleansing No No No -Wound Comment(s) legs ^ red, excoriated #1 RLE cluster -Combined with other wound No No No -Current Size (cm) - Length 0.1 0.1 -Current Size (cm) - Width 0.1 0.1 -Current Size (cm) - Depth 0.1 0.1 -Total Square Cm 0.01 0.01 -Date of Last Picture (Recall this 03/27/22 field) -Photo Taken No Yes No -Epithelialization Large 67-100% Medium 34-66% -Tunneling No No No -Undermining/Tunneling No No No -Circular Undermining No No -Exudate Amt Large Medium Large -Exudate Type Yellow/Green Serosanguineous Serosanguineous -Granulation Amt Large (67-100%) -Granulation Quality N/A Red -Slough/Fibrin No -Necrosis Amt None Present (0 %) -Structure Exposed N/A -Texture (Dea-wound Skin Appearance) Excoriation Assessed, Assessed, Scarring Scarring -Moisture (Dea-wound Skin Appearance) Weeping Assessed, Assessed, Weeping Maceration, Weeping,Dry/ Scaly -Color (Dea-wound Skin Appearance) Erythema Assessed, Assessed, Erythema Erythema -Temperature (Dea-wound Skin No Abnormality No Abnormality No Abnormality Appearance) (Pt Warm) (Pt Warm) (Pt Warm) -Tenderness on Palpation (Dea-wound Yes No No Skin Appearance) -Ulcer Cleansing Soap and Water Soap and Water Soap and Water -Foul Odor after Cleansing No No No -Anesthetic Used 5% Lidocaine Gel -Wound Comment(s) Red, shiny, raw legs ^ red, skin with excoriated saturated yellow/green dressings. Lower Limb Edema Present Yes Yes Right Calf (cm) 41 41.7 Right Ankle (cm) 24.5 23.5 Left Calf (cm) 41 41.4 Left Ankle (cm) 26 24.2 03/24/22 15:21 Wound Center by Isaac Rodriguez saw pt per my request. She changed the 3m order to adaptic over raw areas and then super absorbers, kerlix, tubi then kai wraps. Initialized on 03/24/22 15:21 - END OF NOTE WC - Nurse 2 - General Ulcer CM Notes Start: 03/24/22 14:49 Freq: Status: Active Protocol: Activity Type Activity Date Activity User E-sign Co-sign Detail Recorded Client Recorded Date Recorded By Document 03/24/22 14:49 [id number] 03/24/22 14:49 JF Document 03/27/22 11:10 MW [id number] 03/27/22 11:13 MW Document 04/10/22 11:30 MW [id number] 04/10/22 12:16 MW 03/24/22 03/27/22 04/10/22 14:49 11:10 11:30 Wound Center Nurse 2 #2 LLE cluster -Time 11:12 11:30 -Correct Patient No Yes Yes -Correct Side, Site, Position No Yes Yes -Correct Procedure No Yes Yes -Procedure Performed No No No -Wound/Ulcer Outcome Not Healed Not Healed Not Healed #1 RLE cluster -Time 11:12 11:30 -Correct Patient No Yes Yes -Correct Side, Site, Position No Yes Yes -Correct Procedure No Yes Yes -Procedure Performed No No No -Wound/Ulcer Outcome Not Healed Not Healed Not Healed Pain Scale: 0-10 Numeric Is Patient Pain Free? Yes Yes Yes WC - Nurse 3 - General Ulcer D/C NN Start: 03/24/22 14:49 Freq: Status: Active Protocol: Activity Type Activity Date Activity User E-sign Co-sign Detail Recorded Client Recorded Date Recorded By Document 03/24/22 15:15 AK [id number] 03/24/22 15:24 AK Document 03/27/22 11:25 BMF [id number] 03/27/22 11:29 BMF Edit Result 03/27/22 11:25 BMF (1) [id number] 03/27/22 11:34 BMF Document 04/10/22 11:46 MT [id number] 04/10/22 11:49 MT Edit Result 04/10/22 11:46 MT (2) [id number] 04/10/22 11:50 MT (1) #2 LLE cluster - Optilok 8x12 1 => 2 (2) BLE - Size E ($) 1 => 2 03/24/22 03/27/22 04/10/22 15:15 11:25 11:46 Vital Signs Temperature (97.8 F-99.1 F) 96.2 F L Temperature Source Temporal Pulse Rate (60-100) 125 H Pulse Location Monitor Blood Pressure (90/60-120/80) 138/69 H Blood Pressure Mean (mm Hg) 92 Source Monitor Pain Scale: 0-10 Numeric Is Patient Pain Free? Yes Yes Yes Wound Care Nurse 3 #2 LLE cluster -Ulcer Cleansing Rinsed/ Rinsed/ Rinsed/ Irrigated with Irrigated with Irrigated with Saline Saline Saline -Foul Odor after Cleansing No No -Negative Pressure Wound Therapy N/A -Primary Dressing Applied NonAdherent NonAdherent Optilok 6.5x10 Contact Layer Contact Layer, Optilok 8x12 -Other Dressing ABD -Primary Dressing Covered/Secured with Dry Gauze & Dry Gauze, Roll Gauze, Secured with Secured with Tape Tape -Other Covering DRSG PER TN RN -Optilok 6.5x10 2 -Optilok 8x12 2 #1 RLE cluster -Ulcer Cleansing Rinsed/ Rinsed/ Irrigated with Irrigated with Saline Saline -Foul Odor after Cleansing No No -Negative Pressure Wound Therapy N/A -Primary Dressing Applied NonAdherent NonAdherent Contact Layer Contact Layer, Optilok 6.5x10 -Other Dressing ABD -Primary Dressing Covered/Secured with Dry Gauze & Roll Gauze, Secured with Tape -Other Covering PER TN RN -Optilok 6.5x10 2 BLE -Compression Wrap Kai Wrap -Tubular Bandage Single Layer Single Layer -Size of Tubigrip Used Size E Size E -Size E ($) 2 2 -Other KAI OVER TUBIS bilateral -Compression Wrap Kai Wrap Kai Wrap Treatment Response Procedure Tolerated Well WC - Visit Discharge Discharge Condition Stable Stable Stable Ambulatory Status Ambulatory Ambulatory Ambulatory Transportation Private Auto Medication Reconcilliation completed & Yes No provided to patient/care provider Clinical Summary of Care Provided Yes Yes Assessment/Plan Assessment/Plan (1) Superficial ulcer of skin: CODE(S): L98.491 - Non-pressure chronic ulcer of skin of other sites limited to breakdown of skin (2) Venous insufficiency of both lower extremities: CODE(S): I87.2 - Venous insufficiency (chronic) (peripheral) (3) Chronic dermatitis: CODE(S): L30.9 - Dermatitis, unspecified (4) Venous insufficiency: CODE(S): I87.2 - Venous insufficiency (chronic) (peripheral) (5) Urticaria: CODE(S): L50.9 - Urticaria, unspecified PLAN: Plan Chronic, bilateral lower extremity dermatitis and erythema. Dressing changes not done as recommended. Information sent to facility. Continue Adaptic, superabsorbent dressing, Tubigrip and Kai wrap for compression. Change daily. Not yet established with Rheumatology. He states that he did not hear from practice however they were to contact his . Hopefully, he gets in soon and gets evaluated. Continue leg elevation, adequate protein intake, optimal diabetes control, and other dietary/lifestyle modifications recommended. His questions were answered and he was advised to call with any further questions or concerns. Follow-up with me in 3 weeks. This note was generated with [employer] dictation software. It may contain incorrect words, spelling, and punctuation that were not noted in checking the note before signing.
== END 2022-04-21 23:59 | disposition home or self-care (01) ==
LOC: WC 10:30
PROVIDERS: PCP Internal Medicine; Visit Provider Internal Medicine
DX: I87.2 Venous insufficiency (chronic) (peripheral) (principal); Z94.4 Liver transplant status; L98.491 Non-pressure chronic ulcer of skin of other sites limited to breakdown of skin; M79.604 Pain in right leg; L30.9 Dermatitis, unspecified; M79.605 Pain in left leg; L50.9 Urticaria, unspecified; M79.89 Other specified soft tissue disorders; R60.0 Localized edema; N18.9 Chronic kidney disease, unspecified
CPT/HCPCS: 99213; 99214; G0463

== ENCOUNTER 2022-04-15 07:18 | Day surgery (SDC) | payer MEDICARE, MEDICAID, SELFPAY ==
--- NOTE | 2022-04-08 14:03 | EKG12_ITS ---
Test Reason : PREOP Blood Pressure : / mmHG Vent. Rate : 113 BPM Atrial Rate : 113 BPM P-R Int : 256 ms QRS Dur : 136 ms QT Int : 330 ms P-R-T Axes : 000 062 048 degrees QTc Int : 452 ms Sinus tachycardia with 1st degree A-V block with Premature supraventricular complexes Right bundle branch block Abnormal ECG Confirmed by DARINEL AMBRIZ, OLLIE ([id number]), image editor BEATRIZ MOREL ([id number]) on 04/09/2022 6:47:07 AM Referred By: Leonardo Meeks Confirmed By:OLLIE TENA MD
[2022-04-15] VITALS (8 sets, daily range): BP systolic 97–150; BP diastolic 61–95; PULSE 69–114; RESP 16–19; TEMP 36.1–36.9; O2SAT 93–97; BMI 37.7
--- NOTE | 2022-04-15 09:05 | PCM.HP.BLA ---
History and Physical Date of Admission: 04/15/22 Visit Reasons:?STAGE 4 KIDNEY DISEASE Chief Complaint: fistula consult Computer Security Specialist Required: No Is patient in pain?: No Allergies cortisone [Cortisone] Allergy (Verified 03/24/22 13:44) AngioedemaPenicillins Allergy (Verified 03/24/22 13:44) Unknown Medications levothyroxine 75 mcg tablet 75 mcg PO DAILY thyroid 11/19/13 [History Confirmed 03/24/22] tacrolimus 1 mg capsule, immediate-release 0.5 mg PO BID transplant med 06/09/16 [History Confirmed 03/24/22] pantoprazole 40 mg tablet,delayed release 40 mg PO MOWEFR gerd 09/07/17 [History Confirmed 03/24/22] Tamsulosin Hcl 0.4 mg PO BID CKD III 07/07/19 [History Confirmed 03/24/22] allopurinol 100 mg tablet 100 mg PO DAILY Gout 07/07/19 [History Confirmed 03/24/22] bupropion HCl 150 mg tablet,12 hr sustained-release 150 mg PO BID major depressive disorder 07/07/19 [History Confirmed 03/24/22] multivit with minerals-folic acid-lycopene 0.4 mg-600 mcg tablet 1 tablet PO DAILY supplement 07/07/19 [History Confirmed 03/24/22] aspirin 81 mg tablet,delayed release 81 mg PO DAILY@0800 heart health 08/30/20 [History Confirmed 03/24/22] clobetasol 0.05 % topical cream 15 gm TP BID itching 08/30/20 [History Confirmed 03/24/22] ergocalciferol (vitamin D2) 1,250 mcg (50,000 unit) capsule 50,000 unit PO MO supplement 08/30/20 [History Confirmed 03/24/22] ketoconazole 2 % shampoo 1 applic TP MOWEFR dry scalp 08/30/20 [History Confirmed 03/24/22] magnesium oxide 400 mg PO TID supplement 08/30/20 [History Confirmed 03/24/22] sertraline 100 mg tablet 100 mg PO DAILY depression 08/30/20 [History Confirmed 03/24/22] sulfamethoxazole 800 mg-trimethoprim 160 mg tablet 1 tab PO MOWEFR preventitive 08/30/20 [History Confirmed 03/24/22] dulaglutide 3 mg/0.5 mL subcutaneous pen injector (Trulicity) 3 mg subcut MO DM II 03/11/21 [History Confirmed 03/24/22] fluticasone propionate 50 mcg/actuation nasal spray,suspension (Flonase Allergy Relief) 2 spray intranasal DAILY allergies 03/11/21 [History Confirmed 03/24/22] ipratropium 0.5 mg-albuterol 3 mg (2.5 mg base)/3 mL nebulization soln 3 ml inhalation Q6H PRN Wheezing 03/11/21 [History Confirmed 03/24/22] sennosides 8.6 mg tablet (senna) 8.6 mg PO DAILY constipation 03/11/21 [History Confirmed 03/24/22] zolpidem 5 mg tablet 5 mg PO QHS PRN Insomnia 03/11/21 [History Confirmed 03/24/22] acetaminophen 500 mg tablet 500 mg PO Q6H PRN Pain 02/06/22 [History Confirmed 03/24/22] bisacodyl 10 mg rectal suppository 10 mg ME Q18H PRN Constipation 02/06/22 [History Confirmed 03/24/22] calcium carbonate 200 mg calcium (500 mg) chewable tablet (Tums) mg PO Q18H PRN Indigestion 02/06/22 [History Confirmed 03/24/22] cetirizine 10 mg capsule (Zyrtec) 10 mg PO DAILY 02/06/22 [History Confirmed 03/24/22] docusate sodium 100 mg capsule (Colace) 100 mg PO DAILY PRN Constipation 02/06/22 [History Confirmed 03/24/22] finerenone 10 mg tablet (Kerendia) 10 mg PO DAILY 02/06/22 [History Confirmed 03/24/22] furosemide 20 mg tablet (Lasix) 20 mg PO DAILY 02/06/22 [History Confirmed 03/24/22] insulin glargine 100 unit/mL (3 mL) subcutaneous pen (Lantus Solostar U-100 Insulin) 28 unit subcut DAILY 02/06/22 [History Confirmed 03/24/22] loperamide 2 mg capsule (Imodium A-D) 2 mg PO Q6H PRN Diarrhea 02/06/22 [History Confirmed 03/24/22] magnesium hydroxide 400 mg/5 mL oral suspension (Milk of Magnesia) 30 ml PO DAILY PRN Constipation 02/06/22 [History Confirmed 03/24/22] menthol 4 % topical gel (Biofreeze (menthol)) 1 applic topical BID PRN Pain 02/06/22 [History Confirmed 03/24/22] miconazole nitrate 2 % topical cream 1 applic topical QHS 02/06/22 [History Confirmed 03/24/22] PFSH Medical History? Abdominal pain [id number] kidney injury Alcohol abuse Alcohol abuse following liver transplant Alcohol withdrawal Arthritis Chronic dermatitis Cirrhosis COPD exacerbation Depression Diabetes mellitus Dyspnea Encephalopathy Former smoker Gout History of anxiety History of CHF (congestive heart failure) History of echocardiogram History of IBS History of renal disease History of skin cancer History of ulceration HTN (hypertension) Hypokalemia Hypoxia Infected ulcer of skin Insulin dependent diabetes mellitus Macular degeneration Nausea & vomiting Non-healing non-surgical wound On home oxygen therapy Rash Shortness of breath on exertion Superficial ulcer of skin Thyroid disease Urticaria Venous insufficiency Venous insufficiency of both lower extremities Walker as ambulation aid Wears glasses Surgical History? History of esophagogastroduodenoscopy (EGD) History of excision of pilonidal cyst History of knee surgery History of parathyroid surgery History of tonsillectomy Liver transplanted Social History? Smoking Status:? Former smoker HPI HPI HPI: 76-year-old gentleman referred for chronic hemodialysis access as he has a BUN of 45 and a creatinine of 4.4 with an estimated GFR of 14 placing him in stage IV chronic kidney disease.? He is being referred by Dr. Shala Lomax and a written compromise surgical consult recommendations will return to her. At the [facility] in February 21, 2022 he had bilateral upper extremity vein mapping.? In particular the left cephalic vein of the forearm and upper arm appears to be patent and compressible and of normal diameter.? The radial artery and brachial artery both patent normal diameter normal flow.? Left extremity basilic vein also adequate.? The right forearm cephalic vein was quite small while the upper arm cephalic vein was appropriate. He is being treated at the [facility] [place] for bilateral lower extremity dermatitis.? His medications include low-dose aspirin as well as insulin and Lasix.? He has had a liver transplant and a history of alcohol abuse. It is of pertinence that the patient constantly excoriates himself wherever he can reach.? Particular distress is his abdomen.? Bilateral shoulders.? Bilateral upper arms.? Multiple areas of self-inflicted sores. He is left arm dominant. ROS General General: Yes fatigue; No weight change, appetite, colon cancer, breast cancer or weakness HEENT HEENT: No difficulty swallowing, eye injury, eye surgery, swollen glands or hoarseness Endo Endocrine: Yes diabetes mellitus; No thyroid disease, thyroid cancer, Hair loss, heat intolerance or cold intolerance Musc Musculoskeletal: Yes arthritis; No back problems, rheumatoid arthritis, gout or joint pain Cardio Cardiovascular: Yes high blood pressure; No murmur, pacemaker, heart disease, atrial fibrillation, heart attack, heart stent, palpitations, shortness of breat with exertion or chest pain Psych Psychiatric: Yes depression; No anxiety or hearing voices Resp Respiratory: Yes shortness of breath, Yes sleep apnea, Yes cough, Yes COPD, No asthma, No emphysema and No wheezing Gastro Gastrointestinal: No abdominal pain, No nausea or vomiting, Yes diarrhea, No constipation, No blood in stool, Yes acid reflux, No hemorrhoids, No ulcers, No gallbladder problem and No black,tarry stools Rad Hematologic: No blood thinners, No blood disorders, No bleeding, No anemia and No blood clots Neuro Neurologic: No weakness Exam Const General: cooperative Nutritional Appearance: obese Orientation: alert and awake Other: Diffuse tremors noted. HENMT Other: Areas of self-inflicted excoriation apical scalp Eyes General: appearance normal, both eyes and all related structures Neck Other: Heavy thick neck Chest Other: Increased anterior posterior diameter Resp Other: Poor respiratory excursion blunted breath sounds in the bases Cardio Rate: regular rate Rhythm: regular rhythm GI Other: Abdomen is overweight partly bulbous, cannot detect any internal organs, diffuse areas of self discoloration wounds entire mid abdomen Skin Other: Left upper extremity is areas of self creation mostly in the upper arm scattered areas on the forearm. Neuro Other: Patient is noted to be very tremulous.? He has a shuffling wide-based gait. Extrem Other: Notable 3-4+ bilateral lower extremity edema Left upper extremity has a patent and compressible cephalic vein.? The distal third of the forearm branches typically with 1 going more dorsally and the other closer to the wrist where it splits again.? Peers to be of adequate caliber.? Left radial pulses 3+. Psych Other: Patient appears chronically ill Assessment and Plan Assessment and Plan (1) Chronic kidney disease, stage IV (severe): ?Status:?Chronic ?Plan: The patient has left arm dominant however his right forearm cephalic vein is sclerosed.? He has multiple areas excoriation of the abdomen and bilateral upper arms and shoulders.? The cleanest area is more distally left wrist area.? Although this is his dominant arm it is where he has the cleanest area for a radiocephalic arteriovenous hemodialysis fistula.? I have discussed with him the technique, benefit, risk of alternatives.? I have asked him to assist with trying to diminish the self excoriation and picking of his left upper extremity and I have described to him the risk of wound infection.? He has had an opportunity to ask and have questions answered.? He is aware that there are no guarantees of success. He has had an opportunity to ask and have questions answered.? We will schedule procedure at his discretion. Copy: Dr. Shala Lomax and Dr. Wilver Meeks M.D., F.A.C.S I have re-examined the patient. There are no clinical changes since date of exam. Leonardo Meeks M.D., F.A.C.S.
--- NOTE | 2022-04-15 09:05 | EX.PCM.DISCH ---
Discharge Instructions Procedure Fistula Diet Discharge Diet: Renal Diet Activity Discharge Activity: May Not Drive (for 2-3 days or while taking narcotic pain medications.) and May Take a Tub Bath (in 5 days.) Lifting Restrictions: 5 pounds Keep extremity elevated above heart level: - (Keep arm elevated above the heart level for 3 days.) Dressing / Incision Call your doctor if your incision/area has: Continuous Slow Oozing, Sudden Increased Bleeding (apply pressure and call your doctor.), Increased Pain/ Swelling, Increased Redness and Foul Smelling Discharge Call your doctor if you observe: Fever of 101 or Higher Suture Line Care: Avoid Pulling/Pushing and Avoid Pinching/Bending Cleanse incision/area with: Keep Dressing Clean & Dry Additional Dressing/Incision Instructions:: Change or remove dressing in one day. May protect with a gauze bandaid. Exercise your left hand with a stress ball several times daily to encourage increased blood flow in the fistula Follow Up Care Please Follow Up With: Leonardo Meeks MD When: Call [phone] to make an appointment for suture removal and follow up in 1 week. Discharge Plan Admission Primary Reason for Your Visit: Creation of arteriovenous hemodialysis fistula Attending Provider: Leonardo Meeks Primary Care Provider: Wilver Garcias Discharge Orders/Prescriptions Prescriptions: Continued levothyroxine 75 MCG tablet 75 mcg PO DAILY tacrolimus 1 MG capsule 0.5 mg PO BID pantoprazole 40 MG tablet 40 mg PO MOWEFR bupropion HCl 150 MG tablet sustained-release 12 hr 150 mg PO BID allopurinol 100 MG tablet 100 mg PO DAILY multivit with [id number] 1 EACH tablet 1 tablet PO DAILY Tamsulosin Hcl 0.4 MG capsule 0.4 mg PO BID ketoconazole 120 ML shampoo 1 applic TP MOWEFR sertraline 100 MG tablet 100 mg PO QHS sulfamethoxazole-trimethoprim 1 EACH tablet 1 tab PO MOWEFR aspirin 81 MG tablet,delayed release (DR/EC) 81 mg PO DAILY@0800 ergocalciferol (vitamin D2) 50,000 UNIT capsule 50,000 unit PO MO magnesium oxide 400 MG tablet 400 mg PO TID ipratropium-albuterol 0.5 mg-3 mg(2.5 mg base)/3 mL Solution For Nebulization 3 ml INHALATION Q6H PRN (Reason: Wheezing) zolpidem 5 mg Tablet 5 mg PO QHS PRN (Reason: Insomnia) fluticasone propionate [Flonase Allergy Relief] 50 mcg/actuation [place],Suspension 2 spray INTRANASAL DAILY sennosides [senna] 8.6 mg Tablet 8.6 mg PO PRN PRN (Reason: Constipation) loperamide [Imodium A-D] 2 mg Capsule 2 mg PO Q6H PRN (Reason: Diarrhea) miconazole nitrate 2 % Cream 1 applic TOPICAL QHS acetaminophen 500 mg Tablet 500 mg PO Q6H PRN (Reason: Pain) magnesium hydroxide [Milk of Magnesia] 400 mg/5 mL Suspension 30 ml PO DAILY PRN (Reason: Constipation) bisacodyl 10 mg Suppository 10 mg OK Q18H PRN (Reason: Constipation) calcium carbonate [Tums] 200 mg calcium (500 mg) Tablet,Chewable 200 mg PO Q18H PRN (Reason: Indigestion) docusate sodium [Colace] 100 mg Capsule 100 mg PO DAILY PRN (Reason: Constipation) furosemide [Lasix] 20 mg Tablet 20 mg PO DAILY insulin glargine [Lantus Solostar U-100 Insulin] 100 unit/mL (3 mL) Insulin Pen 28 unit SUBCUT DAILY Zyrtec 10 mg Capsule 10 mg PO DAILY Biofreeze (menthol) 4 % Gel 1 applic TOPICAL BID PRN (Reason: Pain) Kerendia 10 mg Tablet 10 mg PO DAILY gabapentin 100 mg Capsule 100 mg PO TID losartan 25 mg Tablet 25 mg PO DAILY Pro-Stat Renal Care 15 gram- 100 kcal/30 mL Liquid In Packet 30 ea PO BID Ozempic 0.25 mg or 0.5 mg(2 mg/1.5 mL) Pen Injector 0.75 mg SUBCUT MO Rx Instructions: for 4 doses Referrals / Follow Up: Wilver Garcias MD [Primary Care Provider] - Disposition Disposition (needs filled in before D/C Order can be placed): Home, Self Care
[2022-04-15] MEDS: Clindamycin 900 MG/50 ML BAG 75 MG IV (09:37)
[2022-04-15 09:40] LABS: Bedside Glucose 90 mg/dL (74-106)
[2022-04-15] MEDS: Bupivacaine 0.25% 30 ML Vial (09:58)
[2022-04-15] MEDS: Lidocaine 1% (30 ml sdv) 30 ML Vial (09:58)
[2022-04-15] MEDS: Heparin Injection (Vial) 5,000 UNIT/ML VIAL 5000 UNIT (09:58)
--- NOTE | 2022-04-15 11:00 | OP.PCM_ITS ---
Report of Operation Date of Procedure: 04/15/22 Pre-Operative Diagnosis: Stage IV chronic renal insufficiency Post-Operative Diagnosis: Same Surgery/Procedure Performed:: Left forearm radiocephalic arteriovenous hemodialysis fistula creation Description of Surgical Findings:: Timeout informed consent was obtained. 76-year-old gentleman was taken to the operating placed on the table underwent monitored anesthesia care. Clindamycin 900 mg were given intravenously. Left upper extremity sterilely prepped and draped. 1% lidocaine mixed 50-50 with 0.5% Marcaine was used as a local anesthetic. A total of 8 cc was used. Ultrasound had been used to map the course of the left forearm cephalic vein. Local was instilled an oblique incision was made on the radial aspect of the distal left forearm sharp and blunt dissection was used to identify the cephalic vein it was dissected free. A branch point was selected for the anastomosis. Then sharp and blunt dissection was used to identify the radial artery and circumferential control w as obtained. Vessel loop was placed. The patient received 5000 units of heparin. Very vein was ligated distally with hemoclips and then the branch point was spatulated. Peripheral vascular clamps were placed on the radial artery and 11 blade was used to make an arteriotomy which was extended with Sands scissors. A end-to-side venous to arterial anastomosis was created with a running 7-0 Prolene. There was good hemostasis at the completion there was good flow. There had been a sidebranch marked about 6 cm more proximally in the forearm. I instilled local made a transverse incision identified the dominant side branch and secured that with a 2-0 silk suture. Wounds were closed with deep layers of interrupted 3-0 Vicryl and then running subicular 4 Monocryl. Steri-Strips Telfa OpSite dressings applied. Sponge and instrument and needle counts were reported to the surgeon to be correct. Specimens none. Drains none. Blood loss minimal. The patient was taken to recovery room in satisfactory addition without apparent complication. The hand was nice and viable Leonardo Meeks M.D., F.A.C.S. Surgeon: Leonardo Meeks Type of Anesthesia: Local MAC Anesthesiologist: Luis E Eaton
--- NOTE | 2022-04-15 11:23 | SUR.PHASEI ---
PATIENT REPEATEDLY MOVING LEFT ARM ALL AROUND DESPITE REMINDERS. BECOMES FRUSTRATED EASILY, STATES HE IS LEFT-HAND DOMINANT. EDUCATION & REINFORCEMENT GIVEN.
[2022-04-15 12:11] LABS: Bedside Glucose 94 mg/dL (74-106)
--- NOTE | 2022-04-15 12:51 | SUR.PHASEII ---
Dressing changed to clear occlusive dressing. no active bleeding noted.
--- NOTE | 2022-04-15 13:05 | SUR.PHASEII ---
[facility]STER RN CALLED REPORT TO YAMILE[facility] COSME NURSE, PT VSS NOT COMPLAINING OF PAIN, DRESSING CHANGED PER VERBAL ORDER, OK TO D/C PER VERBAL ORDER. PT D/C BACK TO LONG-TERM WITH HIS FAMILY MEMBER.
== END 2022-04-15 13:00 | disposition home or self-care (01) ==
LOC: SDC 07:22 → AC 07:22
PROVIDERS: PCP Internal Medicine; Referring Provider Surgery; Visit Provider Surgery
PROC: (CPT 36821; principal; 2022-04-15 09:15)
DX: Z49.01 Encounter for fitting and adjustment of extracorporeal dialysis catheter (principal); Z94.4 Liver transplant status; J44.9 Chronic obstructive pulmonary disease, unspecified; N18.4 Chronic kidney disease, stage 4 (severe); Z79.4 Long term (current) use of insulin; E11.9 Type 2 diabetes mellitus without complications; Z87.891 Personal history of nicotine dependence; F10.10 Alcohol abuse, uncomplicated; F32.A Depression, unspecified; I10 Essential (primary) hypertension; M19.90 Unspecified osteoarthritis, unspecified site; K21.9 Gastro-esophageal reflux disease without esophagitis; M10.9 Gout, unspecified; E07.9 Disorder of thyroid, unspecified; R06.02 Shortness of breath; I44.0 Atrioventricular block, first degree; I45.10 Unspecified right bundle-branch block; Z79.899 Other long term (current) drug therapy; Z79.890 Hormone replacement therapy; Z79.82 Long term (current) use of aspirin
CPT/HCPCS: 36821; 01844; 82962; 93005; J7040; J2405

== ENCOUNTER 2022-05-08 10:03 | Outpatient (RCR) | payer MEDICARE, MEDICAID, SELFPAY ==
[2022-04-22 00:32] VITALS: BP 159/94; PULSE 111; RESP 16; TEMP 36.4; O2SAT 96; BMI 37.1
--- NOTE | 2022-04-25 09:35 | WC ---
Thomas Freitas called and asked to have more dressing supplies for pt. Crystal called and reorder all dressing supplies as previously ordered on 03-27-22. then Thomas Freitas was notified that dressing were reodered.
[2022-05-08 10:42] VITALS: BP 143/88; PULSE 115; RESP 18; TEMP 36.3; BMI 37.1
--- NOTE | 2022-05-08 12:09 | PCM.WC.PN ---
History of Present Illness Date of Service: 05/08/22 Chief Complaint: Bilateral lower extremity pain, redness and swelling. History of Wound: This is a 76 year-old white male who presents to the wound healing center today due to non healing bilateral lower extremity lesions. He states that his concerns have been present for over a year. Was seen at the wound center with no significant improvement and he was subsequently sent to see a Outpatient Physical Therapist. He states that he was seen weekly and had a Zinc oxide wrap placed again without any improvement. His main concerns are bilateral lower extremity, rash, itching, irritation, redness and swelling. He was sent by his PCP to [facility] where he was seen by ID. He states that he was placed on IV antibiotics but again, he states that he does not believe it made any difference. He denies chills, fever or otherwise feeling of unwell. Progress of Wound: Not seen here in a few weeks however, no new concerns at this time. There has been some improvement. Has been doing Adaptic to open area and superabsorbent dressing with Tubigrip's. Yet to establish with rheumatology. Objective Data Objective Data Vital Signs: Vital Signs Temp Pulse Resp BP Pulse Ox 97.3 F L 115 H 18 143/88 H 96 05/08/22 10:42 05/08/22 10:42 05/08/22 10:42 05/08/22 10:42 04/22/22 00:32 Weight: 230 lb Body Mass Index (BMI) 37.1 Charges/Coding Visit Charges Office Visits / Consults: 23505 OV L3 Est Physical Exam Const General Appearance: cooperative, comfortable and well developed Orientation / Consciousness: awake, oriented to person, oriented to place and oriented to time HEENT normocephalic, head/scalp atraumatic and hearing grossly normal bilaterally Head and Scalp: normal to inspection, normocephalic and atraumatic Eyes General Eye: normal appearance of both eyes Neck full ROM and supple General: normal visual inspection Resp normal respiratory effort Effort and Inspection: able to speak in complete sentences Neuro oriented x3, CN's II-XII intact bilaterally, moves all extremities and no focal motor deficits Psych mental status grossly normal Appearance: grossly normal Attitude: calm Activity / Motor Behavior: appropriate eye contact Debridement Note Debridement Note Post-Debridement Measurements and Additional Note: Post-Debridement Measurements/Treatment WC - Nurse 1 - General Ulcer Assessment Start: 05/08/22 10:41 Freq: Status: Active Protocol: BROOKE Activity Type Activity Date Activity User E-sign Co-sign Detail Recorded Client Recorded Date Recorded By Document 05/08/22 10:42 DL [id number] 05/08/22 10:49 DL 05/08/22 10:42 - Today's Visit Information Type of service Follow-up Visit (Physician/WAREHOUSING TECHNICIAN ) Arrival Mode Ambulatory Transfer Assistance None Patient Identification Verified (Name & Yes ) Patient Requires Transmission-Based No Precautions Finger Stick Blood Sugar(mg/dl) (if 128 indicated): Blood Sugar Stated by Patient Height and Weight Body Mass Index (BMI) 37.1 BMI Classification Obese Vital Signs Temperature (97.8 F-99.1 F) 97.3 F L Temperature Source Temporal Pulse Rate (60-100) 115 H Pulse Location Monitor Respiratory Rate (12-18) 18 Respiratory rate source Observation Blood Pressure (90/60-120/80) 143/88 H Blood Pressure Mean (mm Hg) 106 Source Monitor History Since Last Visit- (Skip if this is Patient's initial visit) Have you changed medications since your No last visit? Any new allergies or adverse reactions No Had a fall/change in ADL's that may No increase risk of falls Signs or symptoms of abuse and/or No neglect since last visit Have you been in the hospital since your No last visit? Has dressing in place as prescribed No Has compression in place as prescribed Yes Has offloadiing in place as prescribed N/A Experienced any changes in pain level or No management Left Footwear Regular Shoe Right Footwear Regular Shoe Pain Scale: 0-10 Numeric Is Patient Pain Free? Yes - Nurse 1 - General Ulcer Measurement Start: 05/08/22 10:41 Freq: Status: Active Protocol: Activity Type Activity Date Activity User E-sign Co-sign Detail Recorded Client Recorded Date Recorded By Document 05/08/22 10:42 DL [id number] 05/08/22 10:49 DL 05/08/22 10:42 Wound Center Nurse 1 #2 LLE cluster -Combined with other wound No -Current Size (cm) - Length 0.1 -Current Size (cm) - Width 0.1 -Current Size (cm) - Depth 0.1 -Total Square Cm 0.01 -Epithelialization Medium 34-66% -Tunneling No -Undermining/Tunneling No -Circular Undermining No -Exudate Amt Medium -Exudate Type Serous -Granulation Amt Large (67-100%) -Granulation Quality Red -Texture (Dea-wound Skin Appearance) Assessed, Excoriation, Scarring -Moisture (Dea-wound Skin Appearance) Assessed, Weeping -Color (Dea-wound Skin Appearance) Assessed, Erythema -Temperature (Dea-wound Skin No Abnormality Appearance) (Pt Warm) -Ulcer Cleansing Soap and Water -Foul Odor after Cleansing No #1 RLE cluster -Combined with other wound No -Current Size (cm) - Length 0.1 -Current Size (cm) - Width 0.1 -Current Size (cm) - Depth 0.1 -Total Square Cm 0.01 -Photo Taken No -Epithelialization Medium 34-66% -Tunneling No -Undermining/Tunneling No -Circular Undermining No -Exudate Amt Large -Exudate Type Serous -Wound Margin Distinct, Outline Attached -Granulation Amt Large (67-100%) -Granulation Quality Red -Texture (Dea-wound Skin Appearance) Assessed, Excoriation, Scarring -Moisture (Dea-wound Skin Appearance) Assessed, Maceration, Weeping -Color (Dea-wound Skin Appearance) Assessed, Erythema -Temperature (Dea-wound Skin No Abnormality Appearance) (Pt Warm) -Tenderness on Palpation (Dea-wound No Skin Appearance) -Ulcer Cleansing Soap and Water -Foul Odor after Cleansing No Lower Limb Edema Present Yes Right Calf (cm) 40 Right Ankle (cm) 23 Left Calf (cm) 39.8 Left Ankle (cm) 23.5 WC - Nurse 2 - General Ulcer CM Notes Start: 05/08/22 10:41 Freq: Status: Active Protocol: Activity Type Activity Date Activity User E-sign Co-sign Detail Recorded Client Recorded Date Recorded By Document 05/08/22 11:09 MW [id number] 05/08/22 11:10 MW 05/08/22 11:09 Wound Center Nurse 2 #2 LLE cluster -Time 11:09 -Correct Patient Yes -Correct Side, Site, Position Yes -Correct Procedure Yes -Procedure Performed No -Bleeding Controlled with NA -Treatment Response Procedure Tolerated Well #1 RLE cluster -Time 11:10 -Correct Patient Yes -Correct Side, Site, Position Yes -Correct Procedure Yes -Procedure Performed No -Tunneling No -Undermining/Tunneling No -Circular Undermining No -Wound/Ulcer Outcome Not Healed Pain Scale: 0-10 Numeric Is Patient Pain Free? Yes - Nurse 3 - General Ulcer D/C NN Start: 05/08/22 10:41 Freq: Status: Active Protocol: Activity Type Activity Date Activity User E-sign Co-sign Detail Recorded Client Recorded Date Recorded By Document 05/08/22 11:25 [facility] [id number] 05/08/22 11:26 [facility] 05/08/22 11:25 Wound Care Nurse 3 #2 LLE cluster -Ulcer Cleansing Rinsed/ Irrigated with Saline -Foul Odor after Cleansing No -Primary Dressing Applied NonAdherent Contact Layer, Optilok 8x12 -Primary Dressing Covered/Secured with Dry Gauze & Roll Gauze, Secured with Tape -Other Covering DRSG PER [place] [employer] -Optilok 8x12 1 #1 RLE cluster -Ulcer Cleansing Rinsed/ Irrigated with Saline -Foul Odor after Cleansing No -Primary Dressing Applied NonAdherent Contact Layer, Optilok 8x12 -Primary Dressing Covered/Secured with Dry Gauze & Roll Gauze, Secured with Tape -Other Covering DRSG PER [place] [employer] -Optilok 8x12 1 BLE -Tubular Bandage Single Layer -Size of Tubigrip Used Size F -Size F ($) 2 Treatment Response Procedure Tolerated Well Pain Scale: 0-10 Numeric Is Patient Pain Free? Yes - Visit Discharge Discharge Condition Stable Ambulatory Status Ambulatory Transportation F Other [facility] Assessment/Plan Assessment/Plan (1) Superficial ulcer of skin: CODE(S): L98.491 - Non-pressure chronic ulcer of skin of other sites limited to breakdown of skin (2) Venous insufficiency of both lower extremities: CODE(S): I87.2 - Venous insufficiency (chronic) (peripheral) (3) Chronic dermatitis: CODE(S): L30.9 - Dermatitis, unspecified (4) Venous insufficiency: CODE(S): I87.2 - Venous insufficiency (chronic) (peripheral) (5) Urticaria: CODE(S): L50.9 - Urticaria, unspecified PLAN: Plan Chronic, bilateral lower extremity dermatitis and erythema. Some improvement noted since his last visit. Continue Adaptic, superabsorbent dressing, Tubigrip and Kai wrap for compression. Change daily. Not yet established with Rheumatology. He states that he did not hear from the practice however they were to contact his . Hopefully, he gets in soon and gets evaluated. Continue leg elevation, adequate protein intake, optimal diabetes control, and other dietary/lifestyle modifications recommended. His questions were answered and he was advised to call with any further questions or concerns. Follow-up with me in 3 weeks. This note was generated with [employer] dictation software. It may contain incorrect words, spelling, and punctuation that were not noted in checking the note before signing.
== END 2022-05-21 23:59 | disposition home or self-care (01) ==
LOC: WC 10:03
PROVIDERS: PCP Internal Medicine; Visit Provider Internal Medicine
DX: L98.491 Non-pressure chronic ulcer of skin of other sites limited to breakdown of skin (principal); I87.2 Venous insufficiency (chronic) (peripheral); M79.605 Pain in left leg; M79.604 Pain in right leg; L50.9 Urticaria, unspecified
CPT/HCPCS: 99213; G0463

== ENCOUNTER → 2022-05-20 | Outpatient (REF) | payer MEDICARE, MEDICAID, SELFPAY ==
[2022-05-20 08:09] LABS: Absolute Lymphocyte Count 2.06 X10^3/uL (0.83-4.51); Absolute Neutrophil Count 7.4 X10^3/uL (2.0-7.7); Basophil# 0.03 X10^3/uL; Basophil% 0.3 % (0-1); Eosinophil# 0.25 X10^3/uL; Eosinophils% 2.3 % (0-5); Hematocrit 34.6 % (40-54); Hemoglobin 10.8 g/dL (13.0-16.5); Lymphocyte # 2.06 X10^3/ul (0.83-4.51); Lymphocyte % 19.3 % (19-41); Mean Corp Hgb Conc 31.2 g/dL (32-36); Mean Corpuscular Volume 99.4 fL (80-94); Mean Platelet Vol. 11.1 fl (6.2-12.0); Monocyte% 8.4 % (0-10); NRBC Flagged by Analyzer 0 % (0-5); Neutrophil # 7.35 X10^3/uL (2.7-7.7); Platelet Count 227 K/mm3 (150-450); RBC Distribution Width CV 15.1 % (11.6-14.6); RBC Distribution Width SD 55.2 fl (35.1-43.9); Red Blood Count 3.48 M/mm3 (4.6-6.2); White Blood Count 10.7 K/mm3 (4.4-11.0)
[2022-05-20 08:26] LABS: ALB/GLOB Ratio 0.5 RATIO (0.9-2.4); AST(SGOT) 7 U/L (15-37); Alanine Aminotransfer ALT/SGPT 14 U/L (16-61); Albumin, Serum 2.3 g/dL (3.2-5.0); Alkaline Phosphatase 96 U/L (45-117); Anion Gap 5 (5-15); BUN 65 mg/dL (7-18); BUN/Creat Ratio 16.3 RATIO (10-20); Calcium,Total 8.5 mg/dL (8.5-10.1); Chloride 108 mmol/L (98-107); Cholesterol 215 mg/dL (200); Creatinine, Serum 3.99 mg/dL (0.70-1.30); EST Glomerular Filtration Rate 16 mL/min (>60); Est Glom Filt Rate - Afr Amer 19 mL/min (>60); GGTP 33 U/L (15-85); Globulin 4.4 g/dL (2.2-4.2); Glucose 136 mg/dL (74-106); High Density Lipoprotein 67 mg/dL; Magnesium 1.9 mg/dL (1.6-2.6); Phosphorus 3.8 mg/dL (2.5-4.9); Potassium 4.2 mmol/L (3.5-5.1); Protein, Total 6.7 g/dL (6.4-8.2); Sodium Level 142 mmol/L (136-145); Triglycerides 146 mg/dL; Very Low Density Lipoprotein 29 mg/dL (5-40)
[2022-05-20 08:45] LABS: PTHIN 415.9 pg/mL (18.4-80.1)
[2022-05-20 09:05] LABS: Vitamin D,25 Hydroxy 23.5 ng/mL
== END ==
LOC: OLS.SWAL 05:00
PROVIDERS: PCP Internal Medicine; Visit Provider Internal Medicine
DX: R73.02 Impaired glucose tolerance (oral) (principal); Z48.23 Encounter for aftercare following liver transplant; Z94.4 Liver transplant status; E61.2 Magnesium deficiency; K76.9 Liver disease, unspecified; Z41.8 Encounter for other procedures for purposes other than remedying health state
CPT/HCPCS: 36415; 80053; 80061; 80197; 82306; 82977; 83735; 83970; 84100; 85025

== ENCOUNTER → 2022-05-27 | Outpatient (REF) | payer MEDICARE, MEDICAID, SELFPAY ==
[2022-05-27 08:37] LABS: Hematocrit 35.4 % (40-54); Hemoglobin 11.2 g/dL (13.0-16.5); Mean Corp Hgb Conc 31.6 g/dL (32-36); Mean Corpuscular Hgb 31.5 pg (27.0-32.0); Mean Corpuscular Volume 99.7 fL (80-94); Platelet Count 194 K/mm3 (150-450); RBC Distribution Width CV 15.2 % (11.6-14.6); RBC Distribution Width SD 55.8 fl (35.1-43.9); Red Blood Count 3.55 M/mm3 (4.6-6.2); White Blood Count 12.4 K/mm3 (4.4-11.0)
[2022-05-27 08:58] LABS: Albumin, Serum 2.5 g/dL (3.2-5.0); BUN 63 mg/dL (7-18); Calcium,Total 8.7 mg/dL (8.5-10.1); Chloride 110 mmol/L (98-107); EST Glomerular Filtration Rate 15 mL/min (>60); Est Glom Filt Rate - Afr Amer 18 mL/min (>60); Glucose 106 mg/dL (74-106); PTHIN 327.3 pg/mL (18.4-80.1); Phosphorus 3.6 mg/dL (2.5-4.9); Potassium 4.3 mmol/L (3.5-5.1); Sodium Level 140 mmol/L (136-145)
[2022-05-27 12:50] LABS: Protein, Urine (Random) 553.6 mg/dL (<11.9); Protein:Creat Ratio 5661 mg/g CRE (0-200)
== END ==
LOC: OLS.SWAL 05:00
PROVIDERS: PCP Internal Medicine
DX: N18.6 End stage renal disease (principal)
CPT/HCPCS: 36415; 80069; 82570; 83970; 84156; 85027

== ENCOUNTER 2022-06-05 10:10 | Outpatient (RCR) | payer MEDICARE, MEDICAID, SELFPAY ==
[2022-05-22 00:30] VITALS: BP 143/88; PULSE 115; RESP 18; TEMP 36.3; O2SAT 96; BMI 37.1
[2022-06-05 10:15] VITALS: BP 131/80; PULSE 53; RESP 20; TEMP 36.3; O2SAT 98; BMI 37.1
--- NOTE | 2022-06-05 13:01 | PN.PCM_ITS ---
History of Present Illness Date of Service: 06/05/22 Chief Complaint: Bilateral lower extremity pain, redness and swelling. History of Wound: This is a 76 year-old white male who presents to the wound healing center today due to non healing bilateral lower extremity lesions. He states that his concerns have been present for over a year. Was seen at the wound center with no significant improvement and he was subsequently sent to see a Mechanic'S Assistant. He states that he was seen weekly and had a Zinc oxide wrap placed again without any improvement. His main concerns are bilateral lower extremity, rash, itching, irritation, redness and swelling. He was sent by his PCP to [facility] where he was seen by ID. He states that he was placed on IV antibiotics but again, he states that he does not believe it made any difference. He denies chills, fever or otherwise feeling of unwell. 06-05-22 He presents with new abdominal wound which he states has been present for at least 10 years. Had been seen at the wound center years ago for this. Never really achieved complete healing and patient also admits that he picks at it as well. Has had some ointment applied at his facility without significant improvement. He feels well otherwise. Progress of Wound: Bilateral lower extremity superficial ulceration/dermatitis remains overall stable. Still has some drainage Objective Data Objective Data Vital Signs: Vital Signs Temp Pulse Resp BP Pulse Ox O2 Del Method O2 Flow Rate 97.3 F L 53 L 20 H 131/80 H 98 Room Air 3 06/05/22 10:15 06/05/22 10:15 06/05/22 10:15 06/05/22 10:15 06/05/22 10:15 06/05/22 10:15 06/05/22 10:15 Oxygen Flow Rate (L/min) 3 Oxygen Delivery Method Room Air Weight: 230 lb Body Mass Index (BMI) 37.1 Charges/Coding Procedures Integumentary 111xxx-113xx: 78888 Cleopatra subq tissue 20 sq cm/< Add On Codes: 21955 Cleopatra subq tissue add-on (x 11. Additional square centimeter debrided, please refer to clinical note.) Physical Exam Const General Appearance: cooperative, comfortable and well developed Orientation / Consciousness: awake, oriented to person, oriented to place and oriented to time HEENT normocephalic, head/scalp atraumatic and hearing grossly normal bilaterally Head and Scalp: normal to inspection, normocephalic and atraumatic Eyes General Eye: normal appearance of both eyes Neck full ROM and supple General: normal visual inspection Resp normal respiratory effort Effort and Inspection: able to speak in complete sentences Skin Wounds: wounds noted Neuro oriented x3, CN's II-XII intact bilaterally, moves all extremities and no focal motor deficits Psych mental status grossly normal Appearance: grossly normal Attitude: calm Activity / Motor Behavior: appropriate eye contact Debridement Note Debridement Note Wound debrided: Abdominal Cluster Type of Debridement: Excisional debridement Anesthesia Used: 4% Lidocaine Solution Depth: Down to and including healthy tissue and in the subcutaneous layer Percentage of wound debrided: 100 Instrument Used: 7mm curette Tissue Removed: Slough and devitalized tissue Severity: Fat Layer Exposed Amount of bleeding with debridement: Mild Bleeding Controlled with: Pressure Patient tolerated procedure: Patient tolerated procedure well Post-Debridement Measurements and Additional Note: Post-Debridement Measurements/Treatment - Nurse 1 - General Ulcer Assessment Start: 06/05/22 10:14 Freq: Status: Active Protocol: BROOKE Activity Type Activity Date Activity User E-sign Co-sign Detail Recorded Client Recorded Date Recorded By Document 06/05/22 10:15 [facility] [id number] 06/05/22 10:37 [facility] 06/05/22 10:15 - Today's Visit Information Type of service Follow-up Visit (Physician/TRADE MANAGER ) Arrival Mode Ambulatory, Walker Transfer Assistance None Patient Identification Verified (Name & Yes ) Patient Requires Transmission-Based No Precautions Finger Stick Blood Sugar(mg/dl) (if 121 indicated): Blood Sugar Stated by Patient Height and Weight Body Mass Index (BMI) 37.1 BMI Classification Obese Vital Signs Temperature (97.8 F-99.1 F) 97.3 F L Temperature Source Temporal Pulse Rate (60-100) 53 L Pulse Location Monitor Respiratory Rate (12-18) 20 H Respiratory rate source Observation Pulse Oximetry 98 Oxygen Delivery Method Room Air O2 L/MIN (L/min) 3 Blood Pressure (90/60-120/80) 131/80 H Blood Pressure Mean (mm Hg) 97 Source Monitor Position Sitting Blood Pressure Location Right Arm Comment pt sob, came w/ out his 02. pox 98% on RA, did apply 02 @ 3l History Since Last Visit- (Skip if this is Patient's initial visit) Have you changed medications since your No last visit? Any new allergies or adverse reactions No Had a fall/change in ADL's that may No increase risk of falls Signs or symptoms of abuse and/or No neglect since last visit Have you been in the hospital since your No last visit? Has dressing in place as prescribed Yes Has compression in place as prescribed Yes Has offloadiing in place as prescribed N/A Experienced any changes in pain level or No management Left Footwear Diabetic Shoe Right Footwear Diabetic Shoe Pain Scale: 0-10 Numeric Is Patient Pain Free? Yes WC - Nurse 1 - General Ulcer Measurement Start: 06/05/22 10:14 Freq: Status: Active Protocol: Activity Type Activity Date Activity User E-sign Co-sign Detail Recorded Client Recorded Date Recorded By Document 06/05/22 10:15 [facility] [id number] 06/05/22 10:37 [facility] 06/05/22 10:15 Wound Center Nurse 1 #4- abdominal cluster -Combined with other wound No -Current Size (cm) - Length 17 -Current Size (cm) - Width 7.7 -Current Size (cm) - Depth 0.1 -Total Square Cm 130.9 -Date of Last Picture (Recall this 06/05/22 field) -Photo Taken Yes -Epithelialization None Present -Tunneling No -Undermining/Tunneling No -Circular Undermining No -Exudate Amt None Present -Wound Margin Distinct, Outline Attached -Granulation Amt Medium (34-66%) -Granulation Quality Red -Slough/Fibrin Yes -Necrosis Amt Medium (34-66%) -Necrotic Tissue Type Adherent Slough -Texture (Dea-wound Skin Appearance) Assessed, Scarring -Moisture (Dea-wound Skin Appearance) Assessed -Color (Dea-wound Skin Appearance) Assessed -Temperature (Dea-wound Skin No Abnormality Appearance) (Pt Warm) -Tenderness on Palpation (Dea-wound No Skin Appearance) -Ulcer Cleansing Soap and Water -Foul Odor after Cleansing No -Anesthetic Used 4% Lidocaine Solution #2 LLE cluster -Combined with other wound No -Current Size (cm) - Length 26 -Current Size (cm) - Width 14 -Current Size (cm) - Depth 0.1 -Total Square Cm 364 -Date of Last Picture (Recall this 06/05/22 field) -Photo Taken Yes -Epithelialization Small 1-33% -Tunneling No -Undermining/Tunneling No -Circular Undermining No -Exudate Amt Large -Exudate Type Serous -Wound Margin Distinct, Outline Attached -Granulation Amt Large (67-100%) -Granulation Quality Red -Slough/Fibrin No -Necrosis Amt None Present (0 %) -Texture (Dea-wound Skin Appearance) Assessed, Friable, Scarring -Moisture (Dea-wound Skin Appearance) Assessed, Maceration, Weeping -Color (Dea-wound Skin Appearance) Assessed, Erythema -Temperature (Dea-wound Skin No Abnormality Appearance) (Pt Warm) -Tenderness on Palpation (Dea-wound No Skin Appearance) -Ulcer Cleansing Soap and Water -Foul Odor after Cleansing No -Anesthetic Used 4% Lidocaine Solution #1 RLE cluster -Combined with other wound No -Current Size (cm) - Length 15 -Current Size (cm) - Width 24.5 -Current Size (cm) - Depth 0.1 -Total Square Cm 367.5 -Date of Last Picture (Recall this 06/05/22 field) -Photo Taken Yes -Epithelialization Small 1-33% -Tunneling No -Undermining/Tunneling No -Circular Undermining No -Exudate Amt Small -Exudate Type Serous -Wound Margin Flat & Intact -Granulation Amt Medium (34-66%) -Granulation Quality Red -Slough/Fibrin Yes -Necrosis Amt Medium (34-66%) -Necrotic Tissue Type Adherent Slough -Texture (Dea-wound Skin Appearance) Assessed, Scarring -Moisture (Dea-wound Skin Appearance) Assessed, Maceration, Weeping -Color (Dea-wound Skin Appearance) Assessed, Erythema -Tenderness on Palpation (Dea-wound No Skin Appearance) -Ulcer Cleansing Soap and Water -Foul Odor after Cleansing No -Anesthetic Used 4% Lidocaine Solution Lower Limb Edema Present Yes Right Calf (cm) 42.6 Right Ankle (cm) 23.1 Left Calf (cm) 41.9 Left Ankle (cm) 24.5 WC - Nurse 2 - General Ulcer CM Notes Start: 06/05/22 10:14 Freq: Status: Active Protocol: Activity Type Activity Date Activity User E-sign Co-sign Detail Recorded Client Recorded Date Recorded By Document 06/05/22 10:55 [facility] [id number] 06/05/22 11:03 [facility] 06/05/22 10:55 Wound Center Nurse 2 #4- abdominal cluster -Time 10:55 -Correct Patient Yes -Correct Side, Site, Position Yes -Correct Procedure Yes -Procedure Performed Yes -Type of Procedure Debridement -Clinical Debridement Subcutaneous -Tissue Removed Subcutaneous -Post Debridement (cm) - Length 19.0 -Post Debridement (cm) - Width 17.5 -Post Debridement (cm) - Depth 0.1 -Total Square (Post) (cm) 332.50 -Area of Debridement (cm) - Length 19.0 -Area of Debridement (cm) - Width 17.5 -Total Square (Area) (cm) 332.50 -Tunneling No -Undermining/Tunneling No -Circular Undermining No -Wound/Ulcer Outcome Not Healed -Ulcer Cleansing Rinsed/ Irrigated with Saline -Foul Odor after Cleansing No -Bioengineered Tissue No -Bleeding Controlled with Pressure -Treatment Response Procedure Tolerated Well -Offloading No -Debridement - Subq, 1st 20sq cm Yes -Debridement, SubQ, ea addt'l 20sq cm 11 or part thereof #2 LLE cluster -Time 10:56 -Correct Patient Yes -Correct Side, Site, Position Yes -Correct Procedure Yes -Procedure Performed No -Tunneling No -Undermining/Tunneling No -Circular Undermining No -Wound/Ulcer Outcome Not Healed #1 RLE cluster -Time 11:01 -Correct Patient Yes -Correct Side, Site, Position Yes -Correct Procedure Yes -Procedure Performed No -Tunneling No -Undermining/Tunneling No -Circular Undermining No -Wound/Ulcer Outcome Not Healed -Foul Odor after Cleansing No Pain Scale: 0-10 Numeric Is Patient Pain Free? Yes WC - Nurse 3 - General Ulcer D/C NN Start: 06/05/22 10:14 Freq: Status: Active Protocol: Activity Type Activity Date Activity User E-sign Co-sign Detail Recorded Client Recorded Date Recorded By Document 06/05/22 11:25 [facility] [id number] 06/05/22 11:27 [facility] 06/05/22 11:25 Wound Care Nurse 3 #4- abdominal cluster -Ulcer Cleansing Rinsed/ Irrigated with Saline -Foul Odor after Cleansing No -Primary Dressing Applied NonAdherent Contact Layer -Other Dressing collagen powder - 2 -Primary Dressing Covered/Secured with Secured with Tape -Other Covering abd #2 LLE cluster -Ulcer Cleansing Rinsed/ Irrigated with Saline -Foul Odor after Cleansing No -Primary Dressing Applied NonAdherent Contact Layer, Optilok 8x12 -Primary Dressing Covered/Secured with Dry Gauze & Roll Gauze, Secured with Tape -Optilok 8x12 1 #1 RLE cluster -Ulcer Cleansing Rinsed/ Irrigated with Saline -Foul Odor after Cleansing No -Primary Dressing Applied NonAdherent Contact Layer, Optilok 8x12 -Primary Dressing Covered/Secured with Dry Gauze & Roll Gauze, Secured with Tape -Optilok 8x12 1 ble -Tubular Bandage Single Layer -Size of Tubigrip Used Size E -Size E ($) 1 Treatment Response Procedure Tolerated Well Pain Scale: 0-10 Numeric Is Patient Pain Free? Yes WC - Visit Discharge Discharge Condition Stable Ambulatory Status Ambulatory, Walker Transportation ecf Other assisted living Assessment/Plan Assessment/Plan (1) Superficial ulcer of skin: CODE(S): L98.491 - Non-pressure chronic ulcer of skin of other sites limited to breakdown of skin (2) Venous insufficiency of both lower extremities: CODE(S): I87.2 - Venous insufficiency (chronic) (peripheral) (3) Chronic dermatitis: CODE(S): L30.9 - Dermatitis, unspecified (4) Venous insufficiency: CODE(S): I87.2 - Venous insufficiency (chronic) (peripheral) (5) Urticaria: CODE(S): L50.9 - Urticaria, unspecified (6) Skin ulcer of abdominal wall with fat layer exposed: CODE(S): L98.492 - Non-pressure chronic ulcer of skin of other sites with fat layer exposed PLAN: Plan Presents with worsening abdominal ulceration. Has been present for over 10 years with no complete closure at any point per patient. Recently noted by his facility and he was advised to bring it up here. Debridement done as documented above, procedure was well-tolerated. Collagen powder to abdominal ulcers, cover with Adaptic and gauze. Continue Adaptic, superabsorbent dressing, Tubigrip and Kai wrap for compression to bilateral lower extremity. Change daily. Not yet established with Rheumatology. He states that he did not hear from the practice however they were to contact his . Hopefully, he gets in soon and gets evaluated. Continue leg elevation, adequate protein intake, optimal diabetes control, and other dietary/lifestyle modifications recommended. His questions were answered and he was advised to call with any further questions or concerns. Follow-up with me in 1 week. This note was generated with [employer] dictation software. It may contain incorrect words, spelling, and punctuation that were not noted in checking the note before signing.
== END 2022-06-21 23:59 | disposition home or self-care (01) ==
LOC: WC 10:10
PROVIDERS: PCP Internal Medicine; Visit Provider Internal Medicine
DX: I87.2 Venous insufficiency (chronic) (peripheral) (principal); L98.492 Non-pressure chronic ulcer of skin of other sites with fat layer exposed; L98.491 Non-pressure chronic ulcer of skin of other sites limited to breakdown of skin; L50.9 Urticaria, unspecified; M79.604 Pain in right leg; M79.605 Pain in left leg; L30.9 Dermatitis, unspecified
CPT/HCPCS: 11042; 11045

== ENCOUNTER 2022-06-10 14:52 | Inpatient (IN) | payer MEDICARE, MEDICAID, SELFPAY ==
[2022-06-10] VITALS (22 sets, daily range): BP systolic 90–170; BP diastolic 62–110; PULSE 84–152; RESP 12–20; TEMP 36.4–36.6; O2SAT 94–97; BMI 41.3; BMI 40.5
--- NOTE | 2022-06-10 15:15 | EKG12_ITS ---
Test Reason : SOB Blood Pressure : / mmHG Vent. Rate : 141 BPM Atrial Rate : 308 BPM P-R Int : 000 ms QRS Dur : 136 ms QT Int : 322 ms P-R-T Axes : 000 066 -03 degrees QTc Int : 493 ms Atrial flutter with variable A-V block Right bundle branch block Abnormal ECG Confirmed by ASHA AMBRIZ, COURTNEY ([id number]), sound editor BEATRIZ MOREL ([id number]) on 06/11/2022 11:12:27 AM Referred By: HANNAH Confirmed By:COURTNEY BARRY MD
--- NOTE | 2022-06-10 15:18 | EX.ED.DYSGE1 ---
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 He describes heart palpitations but no chest pain. No recent fevers or chills. He endorses shortness of breath and dyspnea on exertion. 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 He takes Lasix. He presents to the emergency department because of the palpitations, and shortness of breath. He states he does not have history of atrial fibrillation. [facility] Medical History Abdominal pain [id number] kidney injury Alcohol abuse Alcohol abuse following liver transplant Alcohol withdrawal Anemia Arthritis Chronic dermatitis Cirrhosis Cirrhosis COPD (chronic obstructive pulmonary disease) COPD exacerbation CPAP (continuous positive airway pressure) dependence Depression Diabetes mellitus Dietary restriction Dyspnea Encephalopathy Former smoker Gastric reflux Gout History of anxiety History of CHF (congestive heart failure) History of echocardiogram History of IBS History of renal disease History of skin cancer History of ulceration HTN (hypertension) Hypertension Hypokalemia Hypoxia Infected ulcer of skin Insulin dependent diabetes mellitus Macular degeneration Nausea & vomiting Non-healing non-surgical wound alf resident On home oxygen therapy Shortness of breath on exertion Skin ulcer of abdominal wall with fat layer exposed Superficial ulcer of skin Thyroid disease Urticaria Venous insufficiency Venous insufficiency of both lower extremities Walker as ambulation aid Wears glasses Home Medications levothyroxine 75 mcg tablet 75 mcg PO DAILY thyroid 11/19/13 [History Last Taken 06/10/22] tacrolimus 1 mg capsule, immediate-release 0.5 mg PO BID transplant med 06/09/16 [History Last Taken 06/10/22] pantoprazole 40 mg tablet,delayed release 40 mg PO MOWEFR gerd 09/07/17 [History Last Taken 06/09/22] allopurinol 100 mg tablet 100 mg PO DAILY Gout 07/07/19 [History Last Taken 06/10/22] bupropion HCl 150 mg tablet,12 hr sustained-release 150 mg PO BID major depressive disorder 07/07/19 [History Last Taken 06/10/22] multivit with minerals-folic acid-lycopene 0.4 mg-600 mcg tablet 1 tablet PO DAILY supplement 07/07/19 [History Last Taken 06/10/22] aspirin 81 mg tablet,delayed release 81 mg PO DAILY@0800 heart health 08/30/20 [History Last Taken 06/10/22] ergocalciferol (vitamin D2) 1,250 mcg (50,000 unit) capsule 50,000 unit PO MO supplement 08/30/20 [History Last Taken 05/22/22] ketoconazole 2 % shampoo 1 applic TP MOWEFR dry scalp 08/30/20 [History Last Taken 06/09/22] magnesium oxide 400 mg PO TID supplement 08/30/20 [History Last Taken 06/10/22] sertraline 100 mg tablet 100 mg PO QHS depression 08/30/20 [History Last Taken 06/09/22] fluticasone propionate 50 mcg/actuation nasal spray,suspension (Flonase Allergy Relief) 2 spray intranasal DAILY allergies 03/11/21 [History Last Taken 06/10/22] ipratropium 0.5 mg-albuterol 3 mg (2.5 mg base)/3 mL nebulization soln 3 ml inhalation Q6H PRN Wheezing 03/11/21 [History Last Taken 06/10/22] sennosides 8.6 mg tablet (senna) 8.6 mg PO PRN PRN Constipation 03/11/21 [History Last Taken Unknown] zolpidem 5 mg tablet 5 mg PO QHS PRN Insomnia 03/11/21 [History Last Taken 06/09/22] acetaminophen 500 mg tablet 500 mg PO Q6H PRN Pain 02/06/22 [History Last Taken Unknown] bisacodyl 10 mg rectal suppository [address] Q18H PRN Constipation 02/06/22 [History Last Taken Unknown] calcium carbonate 200 mg calcium (500 mg) chewable tablet (Tums) 200 mg PO Q18H PRN Indigestion 02/06/22 [History Last Taken Unknown] docusate sodium 100 mg capsule (Colace) 100 mg PO DAILY PRN Constipation 02/06/22 [History Last Taken Unknown] furosemide 20 mg tablet (Lasix) 20 mg PO DAILY 02/06/22 [History Last Taken 06/10/22] insulin glargine 100 unit/mL (3 mL) subcutaneous pen (Lantus Solostar U-100 Insulin) 28 unit subcut DAILY 02/06/22 [History Last Taken 06/10/22] loperamide 2 mg capsule (Imodium A-D) 2 mg PO Q6H PRN Diarrhea 02/06/22 [History Last Taken 06/10/22] menthol 4 % topical gel (Biofreeze (menthol)) 1 applic topical BID PRN Pain 02/06/22 [History Last Taken Unknown] miconazole nitrate 2 % topical cream 1 applic topical QHS 02/06/22 [History Last Taken 06/10/22] gabapentin 100 mg capsule 100 mg PO TID 04/04/22 [History Last Taken 06/10/22] semaglutide 0.25 mg or 0.5 mg (2 mg/1.5 mL) subcutaneous pen injector (Ozempic) 0.75 mg subcut MO 04/04/22 [History Last Taken 06/09/22] prednisone 20 mg tablet 20 mg PO DAILY 04/24/22 [History Last Taken 06/10/22] calcitriol 0.25 mcg capsule 0.25 mcg PO DAILY KIDNEY DISEASE 06/10/22 [History Last Taken 06/10/22] cetirizine 10 mg tablet (Zyrtec) 10 mg PO DAILY PRN ALLERGIES 06/10/22 [History Last Taken 06/10/22] sulfamethoxazole 800 mg-trimethoprim 160 mg tablet 1 tab PO MOWEFR INFECTION PREVENTION 06/10/22 [History Last Taken 06/09/22] tamsulosin 0.4 mg capsule 0.4 mg PO BID PROSTAIT 06/10/22 [History Last Taken 06/10/22] Allergy/AdvReac Type Severity Reaction Status Date / Time cortisone [Cortisone] Allergy Angioedema Verified 06/10/22 15:02 Penicillins Allergy Unknown Verified 06/10/22 15:02 Surgical History History of esophagogastroduodenoscopy (EGD) History of excision of pilonidal cyst History of knee surgery History of parathyroid surgery History of tonsillectomy Hx of liver transplant Hx of thumb surgery Liver transplanted Social History Smoking Status: Former smoker alcohol intake: former substance use type: does not use ROS ROS ED ROS Narrative Constitutional: No fever, no chills. HEENT: No sore throat. No neck pain. No loss of vision. No rhinorrhea. Cardiovascular: No chest pain. Positive palpitations. Bilateral chronic pedal edema. Respiratory: No cough, positive dyspnea on exertion and shortness of breath. Abdominal: No abdominal pain. No nausea. No vomiting. Genitourinary: No dysuria. No hematuria. Musculoskeletal: No myalgias. No arthralgias. Neurologic: No headaches. No dizziness. No lightheadedness. Skin: No rash. No change in color. Psychiatric: No depression. No anxiety. EXAM Physical Exam Narrative Exam Narrative: Afebrile. Vital signs noted. HEENT: Normocephalic. Atraumatic. PERRL, EOMI. Neck soft and supple. No point tenderness or step off. Cardiovascular: Irregularly irregular tachycardia no murmurs, rubs, or gallops appreciated. Respiratory: No tachypnea. Decreased breath sounds bilateral bases with bibasilar rales Gastrointestinal: Abdomen soft, nontender, with normoactive bowel sounds. No rebound or guarding. Neurological: Awake. Alert. Nonfocal, nonlateralizing. Skin: No rash. Normal color. No pallor. Musculoskeletal: Bilateral pedal edema, both lower extremities wrapped in sterile gauze, wearing socks/stockings. Full range of motion extremities. Const Vital Signs: 06/10/22 14:58 06/10/22 15:02 06/10/22 16:00 Temperature 97.9 F Temperature Source Temporal Pulse Rate 152 H 122 H Respiratory Rate 20 H 18 Respiratory Effort Short of Breath Respiratory Depth Normal Respiratory Pattern Tachypnea Blood Pressure 150/110 H 138/99 H Blood Pressure Mean 123 112 Pulse Ox 95 94 Oxygen Delivery Method Nasal Cannula Room Air Nasal Cannula Oxygen Flow Rate (L/min) 2 06/10/22 16:49 06/10/22 17:21 Temperature Temperature Source Pulse Rate 123 H 126 H Respiratory Rate 19 H Respiratory Effort Respiratory Depth Respiratory Pattern Tachypnea Blood Pressure 147/106 H Blood Pressure Mean 119 Pulse Ox Oxygen Delivery Method Oxygen Flow Rate (L/min) MDM MDM MDM Narrative Medical decision making narrative: Comprehensive work-up was pursued. EKG was obtained and interpreted by myself which demonstrates atrial flutter with variable AV block with a right bundle branch block. Rate is [address] changes. No STEMI. As this is new onset he will be given 3 doses of Lopressor and attempt for rate control. I will obtain a chest x-ray and lab work including CBC, CMP, troponin, and BNP. Although he has a history of chronic renal failure, as he went into new rhythm, I will obtain a high-sensitivity troponin. He states he still does make urine. After 3 doses of Lopressor, his heart rate was in the 100 teens, and less than 120, but escalated again. He became short of breath which I think is more COPD exacerbation so he was given a DuoNeb aerosolized treatment. CBC shows elevated white count of 12.8 with hemoglobin stable at 10.9, hematocrit 34.9. Platelet count normal at 202. Electrolyte panel is grossly unremarkable except for consistent with his chronic kidney disease with a creatinine of 4.64 and a BUN of 72. Electrolytes such as sodium, potassium, and chloride are normal. CO2 normal at 31. High-sensitivity troponin is elevated at 97 but I think this is secondary to his chronic renal failure. BNP slightly elevated at 202. Chest x-ray interpreted by myself shows cardiomegaly and mild CHF. He is already on Lasix. I discussed the patient with Dr. Villa, cardiology, who agrees with admission for rate control and echo cardiogram. I then discussed patient with Dr. Salgado who will admit the patient to PCU. Patient is in stable condition. Lab Data Attestation: I reviewed the patient's lab results. Labs: Laboratory Results - last 24 hr 06/10/22 06/10/22 06/10/22 15:10 15:10 15:10 WBC 12.8 H RBC 3.46 L Hgb 10.9 L Hct 34.9 L MCV 100.9 H MCH 31.5 MCHC 31.2 L RDW Std Deviation 56.8 H RDW Coeff of Kecia 15.3 H Plt Count 202 MPV 11.1 Immature Gran % (Auto) 0.600 Neut % (Auto) 82.6 H Lymph % (Auto) 7.9 L Mcdonald % (Auto) 8.1 Eos % (Auto) 0.5 Baso % (Auto) 0.3 Absolute Neuts (auto) 10.5 H Absolute Lymphs (auto) 1.01 Nucleated RBC % 0 Sodium 142 Potassium 4.2 Chloride 105 Carbon Dioxide 31.0 Anion Gap 6 BUN 72 H Creatinine 4.64 H Estim Creat Clear Calc 12.22 Est GFR (MDRD) Af Amer 16 L Est GFR (MDRD) Non-Af 13 L BUN/Creatinine Ratio 15.5 Glucose 116 H Calcium 8.4 L Total Bilirubin 0.30 AST 12 L ALT 20 Alkaline Phosphatase 86 Troponin I High Sens 97 H B-Natriuretic Peptide 202.7 H Total Protein 6.8 Albumin 2.4 L Globulin 4.4 H Albumin/Globulin Ratio 0.5 L Radiography Diagnostic Testing: Clinical Impression(s) from Imaging Studies Chest X-Ray 06/10/22 15:32 IMPRESSION: Cardiomegaly and CHF. Electronically Signed: Asher Jefferson MD at 15:43 EST , Discharge Plan Dx/Rx/DC Orders Clinical Impression: COPD exacerbation, Elevated troponin, Chronic kidney disease (CKD), New onset atrial flutter Disposition Disposition: Acute Care [facility]
[2022-06-10] MEDS: Metoprolol Tartrate 5 MG/5 ML Vial IV ×3 (15:28→16:52)
[2022-06-10 15:31] LABS: Absolute Lymphocyte Count 1.01 X10^3/uL (0.83-4.51); Absolute Neutrophil Count 10.5 X10^3/uL (2.0-7.7); Basophil# 0.04 X10^3/uL; Basophil% 0.3 % (0-1); Eosinophil# 0.07 X10^3/uL; Eosinophils% 0.5 % (0-5); Hematocrit 34.9 % (40-54); Hemoglobin 10.9 g/dL (13.0-16.5); Lymphocyte # 1.01 X10^3/ul (0.83-4.51); Lymphocyte % 7.9 % (19-41); Mean Corp Hgb Conc 31.2 g/dL (32-36); Mean Corpuscular Hgb 31.5 pg (27.0-32.0); Mean Corpuscular Volume 100.9 fL (80-94); Mean Platelet Vol. 11.1 fl (6.2-12.0); Monocyte# 1.03 X10^3/uL; Monocyte% 8.1 % (0-10); NRBC Flagged by Analyzer 0 % (0-5); Neutrophil # 10.52 X10^3/uL (2.7-7.7); Neutrophil % 82.6 % (47-70); Platelet Count 202 K/mm3 (150-450); RBC Distribution Width CV 15.3 % (11.6-14.6); RBC Distribution Width SD 56.8 fl (35.1-43.9); Red Blood Count 3.46 M/mm3 (4.6-6.2); White Blood Count 12.8 K/mm3 (4.4-11.0)
--- NOTE | 2022-06-10 15:32 | RAD_ITS ---
STUDY: X-RAY CHEST REASON FOR EXAM: Male, 76 years old. Shortness of Breath TECHNIQUE: Single AP portable view of the chest. COMPARISON: Comparison is made with prior study dated 09/14/2020. FINDINGS: EKG electrodes are seen. Stable elevation of the right hemidiaphragm. Vascular congestion and a mild degree of CHF. There is no demonstrated pleural abnormality. There is moderate cardiac enlargement. Normal mediastinum and shaji. Normal visualized pulmonary arteries. There is atherosclerotic calcification of the aortic arch with tortuosity. Normal visualized thoracic spine. Normal visualized ribs, clavicles, and shoulders. There is no demonstrated abnormality of the visualized soft tissue structures of the upper abdomen. RAD/Chest 1 View (Portable) IMPRESSION: Cardiomegaly and CHF. Electronically Signed: Asher Jefferson MD at 15:43 EST ,
[2022-06-10 15:50] LABS: ALB/GLOB Ratio 0.5 RATIO (0.9-2.4); AST(SGOT) 12 U/L (15-37); Alanine Aminotransfer ALT/SGPT 20 U/L (16-61); Albumin, Serum 2.4 g/dL (3.2-5.0); Alkaline Phosphatase 86 U/L (45-117); Anion Gap 6 (5-15); BUN 72 mg/dL (7-18); BUN/Creat Ratio 15.5 RATIO (10-20); Calcium,Total 8.4 mg/dL (8.5-10.1); Chloride 105 mmol/L (98-107); Creatinine, Serum 4.64 mg/dL (0.70-1.30); EST Glomerular Filtration Rate 13 mL/min (>60); Est Glom Filt Rate - Afr Amer 16 mL/min (>60); Estimated Creatinine Clearance 12.22 ml/min; Globulin 4.4 g/dL (2.2-4.2); Glucose 116 mg/dL (74-106); Potassium 4.2 mmol/L (3.5-5.1); Protein, Total 6.8 g/dL (6.4-8.2); Sodium Level 142 mmol/L (136-145); Troponin-I HS 97 pg/mL (3.0-78.0)
[2022-06-10 15:55] LABS: BNP,B-Type NATRIURETIC PEPTIDE 202.7 pg/mL (0-100)
[2022-06-10] MEDS: Ipratropium/Albuterol Sulfate 3 ML AMPUL.NEB INHALATION ×2 (17:19→20:57)
--- NOTE | 2022-06-10 17:30 | NURSING ---
DR PEDRITO CUETO
--- NOTE | 2022-06-10 17:35 | CON.PCM.CA_ITS ---
Assessment & Plan Assessment/Plan (1) New onset a-fib: PLAN: Patient presents with new onset atrial fibrillation. My recommendation at this time would be to emphasize rate control. We will repeat his echocardiogram to reassess his ventricular function. Prior to anticoagulation will need to have pharmacy run a drug interaction screen to assess the safety of any of the DOAC's or warfarin We will continue intravenous diltiazem at this time (2) Elevated troponin: PLAN: I suspect his elevated troponin is likely secondary to demand ischemia. Would not recommend any major changes. Thank you for allowing me to participate in the care of your patient. Please don't hesitate to call if any issues arise. HPI Consult Data Date of Consult: 06/10/22 HPI Narrative HPI Narrative: TEX RICHMOND, is a 76 M who presents emergency room complaining of palpitations, shortness of breath at rest and with exertion. He also has chronic leg swelling. He does have a history of chronic kidney disease stage IV-V. He was seen in the emergency room and was noted to be in atrial fibrillation with a rapid ventricular response rate cardiology was called for further evaluation and management prior to admission. He says that this is the first time he has had atrial fibrillation. He does have a history of liver transplantation and a previous echocardiogram a year ago which demonstrated preserved left ventricular systolic function. [facility] Medical History Abdominal pain [id number] kidney injury Alcohol abuse Alcohol abuse following liver transplant Alcohol withdrawal Anemia Arthritis Chronic dermatitis Cirrhosis Cirrhosis COPD (chronic obstructive pulmonary disease) COPD exacerbation CPAP (continuous positive airway pressure) dependence Depression Diabetes mellitus Dietary restriction Dyspnea Encephalopathy Former smoker Gastric reflux Gout History of anxiety History of CHF (congestive heart failure) History of echocardiogram History of IBS History of renal disease History of skin cancer History of ulceration HTN (hypertension) Hypertension Hypokalemia Hypoxia Infected ulcer of skin Insulin dependent diabetes mellitus Macular degeneration Nausea & vomiting Non-healing non-surgical wound senior care resident On home oxygen therapy Shortness of breath on exertion Skin ulcer of abdominal wall with fat layer exposed Superficial ulcer of skin Thyroid disease Urticaria Venous insufficiency Venous insufficiency of both lower extremities Walker as ambulation aid Wears glasses Home Medications levothyroxine 75 mcg tablet 75 mcg PO DAILY thyroid 11/19/13 [History Last Taken 04/15/22] tacrolimus 1 mg capsule, immediate-release 0.5 mg PO BID transplant med 06/09/16 [History Last Taken 08/30/20] pantoprazole 40 mg tablet,delayed release 40 mg PO MOWEFR gerd 09/07/17 [History Last Taken 08/29/20] allopurinol 100 mg tablet 100 mg PO DAILY Gout 07/07/19 [History Last Taken 08/29/20] bupropion HCl 150 mg tablet,12 hr sustained-release 150 mg PO BID major depressive disorder 07/07/19 [History Last Taken 08/30/20] multivit with minerals-folic acid-lycopene 0.4 mg-600 mcg tablet 1 tablet PO D AILY supplement 07/07/19 [History Last Taken 08/30/20] aspirin 81 mg tablet,delayed release 81 mg PO DAILY@0800 heart health 08/30/20 [History Last Taken 08/30/20] ergocalciferol (vitamin D2) 1,250 mcg (50,000 unit) capsule 50,000 unit PO MO supplement 08/30/20 [History Last Taken 08/20/20] ketoconazole 2 % shampoo 1 applic TP MOWEFR dry scalp 08/30/20 [History Last Taken 08/28/20] magnesium oxide 400 mg PO TID supplement 08/30/20 [History Last Taken 08/30/20] sertraline 100 mg tablet 100 mg PO QHS depression 08/30/20 [History Last Taken 08/29/20] fluticasone propionate 50 mcg/actuation nasal spray,suspension (Flonase Allergy Relief) 2 spray intranasal DAILY allergies 03/11/21 [History Last Taken Unknown] ipratropium 0.5 mg-albuterol 3 mg (2.5 mg base)/3 mL nebulization soln 3 ml inhalation Q6H PRN Wheezing 03/11/21 [History Last Taken Unknown] sennosides 8.6 mg tablet (senna) 8.6 mg PO PRN PRN Constipation 03/11/21 [History Last Taken Unknown] zolpidem 5 mg tablet 5 mg PO QHS PRN Insomnia 03/11/21 [History Last Taken Unknown] acetaminophen 500 mg tablet 500 mg PO Q6H PRN Pain 02/06/22 [History Last Taken Unknown] bisacodyl 10 mg rectal suppository 10 mg OR Q18H PRN Constipation 02/06/22 [History Last Taken Unknown] calcium carbonate 200 mg calcium (500 mg) chewable tablet (Tums) 200 mg PO Q18H PRN Indigestion 02/06/22 [History Last Taken Unknown] docusate sodium 100 mg capsule (Colace) 100 mg PO DAILY PRN Constipation 02/06/22 [History Last Taken Unknown] furosemide 20 mg tablet (Lasix) 20 mg PO DAILY 02/06/22 [History Last Taken Unknown] insulin glargine 100 unit/mL (3 mL) subcutaneous pen (Lantus Solostar U-100 Insulin) 28 unit subcut DAILY 02/06/22 [History Last Taken Unknown] loperamide 2 mg capsule (Imodium A-D) 2 mg PO Q6H PRN Diarrhea 02/06/22 [History Last Taken Unknown] menthol 4 % topical gel (Biofreeze (menthol)) 1 applic topical BID PRN Pain 02/06/22 [History Last Taken Unknown] miconazole nitrate 2 % topical cream 1 applic topical QHS 02/06/22 [History Last Taken Unknown] gabapentin 100 mg capsule 100 mg PO TID 04/04/22 [History Last Taken 04/15/22] semaglutide 0.25 mg or 0.5 mg (2 mg/1.5 mL) subcutaneous pen injector (Ozempic) 0.75 mg subcut MO 04/04/22 [History Last Taken Unknown] prednisone 20 mg tablet 20 mg PO DAILY 04/24/22 [History Last Taken Unknown] calcitriol 0.25 mcg capsule 0.25 mcg PO DAILY KIDNEY DISEASE 06/10/22 [History Last Taken 06/10/22] cetirizine 10 mg tablet (Zyrtec) 10 mg PO DAILY PRN ALLERGIES 06/10/22 [History Last Taken 06/10/22] sulfamethoxazole 800 mg-trimethoprim 160 mg tablet 1 tab PO MOWEFR INFECTION PREVENTION 06/10/22 [History Last Taken 06/09/22] tamsulosin 0.4 mg capsule 0.4 mg PO BID PROSTAIT 06/10/22 [History Last Taken 06/10/22] Allergy/AdvReac Type Severity Reaction Status Date / Time cortisone [Cortisone] Allergy Angioedema Verified 06/10/22 15:02 Penicillins Allergy Unknown Verified 06/10/22 15:02 Surgical History History of esophagogastroduodenoscopy (EGD) History of excision of pilonidal cyst History of knee surgery History of parathyroid surgery History of tonsillectomy Hx of liver transplant Hx of thumb surgery Liver transplanted Social History Smoking Status: Former smoker ROS Constitutional Constitutional: Denies fever(s) or weight loss Eyes Eyes: Reports systems reviewed and no addt'l complaints, except as documented ENT HEENT: Reports systems reviewed and no addt'l complaints, except as documented Cardiovascular Cardiovascular: Reports dyspnea at rest, dyspnea on exertion and palpitations; Denies chest pain at rest, chest pain with activity, edema or paroxysmal nocturnal dyspnea Respiratory/Chest Respiratory/Chest: Reports shortness of breath at rest and shortness of breath with exertion; Denies dyspnea on exertion or productive cough Gastrointestinal Gastrointestinal: Denies change in bowel habits, nausea, vomiting or weight changes Genitourinary Genitourinary: Denies difficulty urinating Musculoskeletal Musculoskeletal: Denies joint stiffness or muscle weakness Integumentary Integumentary: Denies lesions Neurologic Neurologic: Denies dizziness or syncope Psychiatric Psychiatric: Denies anxiety Endocrine Endocrinology: Denies excessive sweating or fatigue Hematologic/Lymphatic Hematologic/Lymphatic: Denies anemia Allergic/Immunologic Allergic/Immunologic: Denies seasonal rhinorrhea Physical Exam Const General Appearance: cooperative, comfortable and well developed Orientation / Consciousness: awake, oriented to person, oriented to place and oriented to time HEENT normocephalic, head/scalp atraumatic and hearing grossly normal bilaterally Head and Scalp: normal to inspection, normocephalic and atraumatic Eyes General Eye: normal appearance of both eyes Neck full ROM and supple General: normal visual inspection Resp normal respiratory effort Effort and Inspection: able to speak in complete sentences Cardio Rhythm: abnormal rhythm irregularly irregular Skin Wounds: wounds noted Neuro oriented x3, CN's II-XII intact bilaterally, moves all extremities and no focal motor deficits Psych mental status grossly normal Appearance: grossly normal Attitude: calm Activity / Motor Behavior: appropriate eye contact Risk Stratification Risk Stratification Applicable: No Objective Data Vital Signs: Vital Signs Temp Pulse Resp BP Pulse Ox O2 Del Method O2 Flow Rate 97.9 F 126 H 19 H 147/106 H 94 Nasal Cannula 2 06/10/22 14:58 06/10/22 17:21 06/10/22 17:21 06/10/22 16:49 06/10/22 16:00 06/10/22 16:00 06/10/22 16:00 Oxygen Flow Rate (L/min) 2 Oxygen Delivery Method Nasal Cannula Weight: 256 lb 2.834 oz Body Mass Index (BMI) 41.3 Lab / Micro Data Result Diagrams: 06/10/22 15:10 06/10/22 15:10 Labs: Laboratory Results - last 24 hr 06/10/22 15:10: WBC 12.8 H, RBC 3.46 L, Hgb 10.9 L, Hct 34.9 L, MCV 100.9 H, MCH 31.5, MCHC 31.2 L, RDW Std Deviation 56.8 H, RDW Coeff of Kecia 15.3 H, Plt Count 202, MPV 11.1, Immature Gran % (Auto) 0.600, Neut % (Auto) 82.6 H, Lymph % (Auto) 7.9 L, Cache % (Auto) 8.1, Eos % (Auto) 0.5, Baso % (Auto) 0.3, Absolute Neuts (auto) 10.5 H, Absolute Lymphs (auto) 1.01, Nucleated RBC % 0 06/10/22 15:10: Sodium 142, Potassium 4.2, Chloride 105, Carbon Dioxide 31.0, Anion Gap 6, BUN 72 H, Creatinine 4.64 H, Estim Creat Clear Calc 12.22, Est GFR (MDRD) Af Amer 16 L, Est GFR (MDRD) Non-Af 13 L, BUN/Creatinine Ratio 15.5, Glucose 116 H, Calcium 8.4 L, Total Bilirubin 0.30, AST 12 L, ALT 20, Alkaline Phosphatase 86, Troponin I High Sens 97 H, Total Protein 6.8, Albumin 2.4 L, Globulin 4.4 H, Albumin/Globulin Ratio 0.5 L 06/10/22 15:10: B-Natriuretic Peptide 202.7 H Micro: Microbiology 06/10/22 15:28 Nasal Secretion SARS-CoV-2 & FLU Antigen (Rapid) - Final Cardiology Labs/Tests 06/10/22 15:10: WBC 12.8 H, RBC 3.46 L, Hgb 10.9 L, Hct 34.9 L, MCV 100.9 H, MCH 31.5, MCHC 31.2 L, Plt Count 202, MPV 11.1, Immature Gran % (Auto) 0.600, Neut % (Auto) 82.6 H, Lymph % (Auto) 7.9 L, Cache % (Auto) 8.1, Eos % (Auto) 0.5, Baso % (Auto) 0.3, Absolute Neuts (auto) 10.5 H, Nucleated RBC % 0 06/10/22 15:10: Sodium 142, Potassium 4.2, Chloride 105, Carbon Dioxide 31.0, Anion Gap 6, BUN 72 H, Creatinine 4.64 H, Est GFR (MDRD) Af Amer 16 L, Est GFR (MDRD) Non-Af 13 L, BUN/Creatinine Ratio 15.5, Glucose 116 H, Calcium 8.4 L, Total Bilirubin 0.30 06/10/22 15:10: B-Natriuretic Peptide 202.7 H Rhythm: EKG: ECHO: Stress Test: Cardiac Cath: PCI: CT Surgery: Holter monitor: EPS: PPM: CXR: Chest CT Scan: Radiography Diagnostic Testing: Radiology Impression Chest X-Ray 06/10/22 15:32 IMPRESSION: Cardiomegaly and CHF. Electronically Signed: Asher Jefferson MD at 15:43 EST ,
--- NOTE | 2022-06-10 17:47 | ECHOCS_ITS ---
Reason For Study: Afib/Flutter Procedure This was a 2D Doppler, Color Flow transthoracic echocardiogram. The study was technically difficult. Contrast injection was performed. Exam performed portable in ICU/CCU. Left Ventricle Normal LV size. Moderate concentric left ventricular hypertrophy. Left ventricular systolic function is normal. The estimated ejection fraction is 55 %. No regional wall motion abnormalities noted. Right Ventricle Normal RV size. Normal systolic function. Atria Normal left atrium. Normal right atrium. Mitral Valve Normal mitral valve. Tricuspid Valve Normal tricuspid valve. Mild (1+) tricuspid valve insufficiency. Pulmonary artery systolic pressure is 30 mmHg. Aortic Valve Trisinus/trileaflet aortic valve. Pulmonic Valve The pulmonic valve is not well visualized. Great Vessels Normal aortic root. Pericardium/Pleural No pericardial effusion. Medication Diluted definity 2.5ml given slow IV push to enhance endocardial definition. MMode/2D Measurements & Calculations LVIDd: 5.2 cm IVSd: 1.4 cm Ao root diam: 3.4 cm LVIDs: 4.2 cm LVPWd: 1.5 cm LA dimension: 4.2 cm RVDd: 4.4 cm FS: 19.1 % LAV(MOD-bp): 71.9 ml LVAd ap4: 33.5 cm2 SV(MOD-sp4): 55.0 ml LAV(MOD-bp) Indexed: 32.6 ml/m2 LVLd ap4: 8.1 cm LAV(MOD-sp2): 73.7 ml EDV(MOD-sp4): 113.2 ml LAV(MOD-sp4): 68.6 ml EDV(sp4-el): 116.9 ml LVAs ap4: 22.1 cm2 LVLs ap4: 6.8 cm ESV(MOD-sp4): 58.2 ml ESV(sp4-el): 60.8 ml EF(MOD-sp4): 48.6 % EF(sp4-el): 48.0 % SV(sp4-el): 56.1 ml LA A4 area: 22.8 cm2 RA A4 area: 16.5 cm2 Doppler Measurements & Calculations MV E max kristy: 135.5 cm/sec MV V2 max: 147.7 cm/sec Ao V2 max: 132.9 cm/sec MV max P.7 mmHg Ao max P.2 mmHg MV V2 mean: 65.4 cm/sec Ao V2 mean: 88.5 cm/sec MV mean P.4 mmHg Ao mean P.7 mmHg MV V2 VTI: 32.5 cm Ao V2 VTI: 22.8 cm AV (velocity ratio): 0.71 LV V1 max: 86.8 cm/sec MR max kristy: 488.0 cm/sec PA V2 max: 75.5 cm/sec LV V1 max P.0 mmHg MR max P.2 mmHg LV V1 mean P.7 mmHg MR mean kristy: 408.1 cm/sec LV V1 mean: 61.1 cm/sec MR mean P.1 mmHg LV V1 VTI: 16.1 cm MR VTI: 136.0 cm TR max kristy: 258.4 cm/sec TR max P.7 mmHg ECHO/Echo Complete W/ Contrast Interpretation Summary Normal LV size. Left ventricular systolic function is normal. The estimated ejection fraction is 55 %. Moderate concentric left ventricular hypertrophy. Pulmonary artery systolic pressure is 30 mmHg. Contrast injection was performed. The study was technically difficult. Ordering Physician: Topher Villa Referring Physician: Wilver Garcias M.D. Performed By: Eddy Drew RCS
--- NOTE | 2022-06-10 18:00 | HP.PCM.HOS_ITS ---
[facility] - General General Date of Service: 06/10/22 Chief Complaint: shortness of breath. [facility] Narrative TEX RICHMOND, is a 76 M who presents with shortness of breath. Patient has been short of breath for months but has just progressively gotten worse. States that his shortness of breath typically waxes and wanes but this time, however, it is persisted for days. He presented to the emergency room and was noted to be in atrial flutter with RVR with heart rate into the 140s to 150s. Patient denies any history of any arrhythmia. He does have lower extremity edema which is unchanged. He does not know if he has had any weight change recently. Patient received 3 rounds 5 mg of IV metoprolol which helped his heart rate only for at the start creeping back up into RVR. Dr. Villa, with cardiology, was contacted and informed the emergency room physician that he he was see the patient in consultation. Patient denies any chest pain. Does state that he does get palpitations that can coincide with the shortness of breath. [facility] Medical History Abdominal pain [id number] kidney injury Alcohol abuse Alcohol abuse following liver transplant Alcohol withdrawal Anemia Arthritis Chronic dermatitis Cirrhosis Cirrhosis COPD (chronic obstructive pulmonary disease) COPD exacerbation CPAP (continuous positive airway pressure) dependence Depression Diabetes mellitus Dietary restriction Dyspnea Encephalopathy Former smoker Gastric reflux Gout History of anxiety History of CHF (congestive heart failure) History of echocardiogram History of IBS History of renal disease History of skin cancer History of ulceration HTN (hypertension) Hypertension Hypokalemia Hypoxia Infected ulcer of skin Insulin dependent diabetes mellitus Macular degeneration Nausea & vomiting Non-healing non-surgical wound [facility] resident On home oxygen therapy Shortness of breath on exertion Skin ulcer of abdominal wall with fat layer exposed Superficial ulcer of skin Thyroid disease Urticaria Venous insufficiency Venous insufficiency of both lower extremities Walker as ambulation aid Wears glasses Home Medications levothyroxine 75 mcg tablet 75 mcg PO DAILY thyroid 11/19/13 [History Last Taken 06/10/22] tacrolimus 1 mg capsule, immediate-release 0.5 mg PO BID transplant med 06/09/16 [History Last Taken 06/10/22] pantoprazole 40 mg tablet,delayed release 40 mg PO MOWEFR gerd 09/07/17 [History Last Taken 06/09/22] allopurinol 100 mg tablet 100 mg PO DAILY Gout 07/07/19 [History Last Taken 06/10/22] bupropion HCl 150 mg tablet,12 hr sustained-release 150 mg PO BID major depressive disorder 07/07/19 [History Last Taken 06/10/22] multivit with minerals-folic acid-lycopene 0.4 mg-600 mcg tablet 1 tablet PO DAILY supplement 07/07/19 [History Last Taken 06/10/22] aspirin 81 mg tablet,delayed release 81 mg PO DAILY@0800 heart health 08/30/20 [History Last Taken 06/10/22] ergocalciferol (vitamin D2) 1,250 mcg (50,000 unit) capsule 50,000 unit PO MO supplement 08/30/20 [History Last Taken 05/22/22] ketoconazole 2 % shampoo 1 applic TP MOWEFR dry scalp 08/30/20 [History Last Taken 06/09/22] magnesium oxide 400 mg PO TID supplement 08/30/20 [History Last Taken 06/10/22] sertraline 100 mg tablet 100 mg PO QHS depression 08/30/20 [History Last Taken 06/09/22] fluticasone propionate 50 mcg/actuation nasal spray,suspension (Flonase Allergy Relief) 2 spray intranasal DAILY allergies 03/11/21 [History Last Taken 06/10/22] ipratropium 0.5 mg-albuterol 3 mg (2.5 mg base)/3 mL nebulization soln 3 ml inhalation Q6H PRN Wheezing 03/11/21 [History Last Taken 06/10/22] sennosides 8.6 mg tablet (senna) 8.6 mg PO PRN PRN Constipation 03/11/21 [History Last Taken Unknown] zolpidem 5 mg tablet 5 mg PO QHS PRN Insomnia 03/11/21 [History Last Taken 06/09/22] acetaminophen 500 mg tablet 500 mg PO Q6H PRN Pain 02/06/22 [History Last Taken Unknown] bisacodyl 10 mg rectal suppository 10 mg NC Q18H PRN Constipation 02/06/22 [History Last Taken Unknown] calcium carbonate 200 mg calcium (500 mg) chewable tablet (Tums) 200 mg PO Q18H PRN Indigestion 02/06/22 [History Last Taken Unknown] docusate sodium 100 mg capsule (Colace) 100 mg PO DAILY PRN Constipation 02/06/22 [History Last Taken Unknown] furosemide 20 mg tablet (Lasix) 20 mg PO DAILY 02/06/22 [History Last Taken 06/10/22] insulin glargine 100 unit/mL (3 mL) subcutaneous pen (Lantus Solostar U-100 Insulin) 28 unit subcut DAILY 02/06/22 [History Last Taken 06/10/22] loperamide 2 mg capsule (Imodium A-D) 2 mg PO Q6H PRN Diarrhea 02/06/22 [History Last Taken 06/10/22] menthol 4 % topical gel (Biofreeze (menthol)) 1 applic topical BID PRN Pain 02/06/22 [History Last Taken Unknown] miconazole nitrate 2 % topical cream 1 applic topical QHS 02/06/22 [History Last Taken 06/10/22] gabapentin 100 mg capsule 100 mg PO TID 04/04/22 [History Last Taken 06/10/22] semaglutide 0.25 mg or 0.5 mg (2 mg/1.5 mL) subcutaneous pen injector (Ozempic) 0.75 mg subcut MO 04/04/22 [History Last Taken 06/09/22] prednisone 20 mg tablet 20 mg PO DAILY 04/24/22 [History Last Taken 06/10/22] calcitriol 0.25 mcg capsule 0.25 mcg PO DAILY KIDNEY DISEASE 06/10/22 [History Last Taken 06/10/22] cetirizine 10 mg tablet (Zyrtec) 10 mg PO DAILY PRN ALLERGIES 06/10/22 [History Last Taken 06/10/22] sulfamethoxazole 800 mg-trimethoprim 160 mg tablet 1 tab PO MOWEFR INFECTION PREVENTION 06/10/22 [History Last Taken 06/09/22] tamsulosin 0.4 mg capsule 0.4 mg PO BID PROSTAIT 06/10/22 [History Last Taken 06/10/22] Allergy/AdvReac Type Severity Reaction Status Date / Time cortisone [Cortisone] Allergy Angioedema Verified 06/10/22 15:02 Penicillins Allergy Unknown Verified 06/10/22 15:02 Surgical History History of esophagogastroduodenoscopy (EGD) History of excision of pilonidal cyst History of knee surgery History of parathyroid surgery History of tonsillectomy Hx of liver transplant Hx of thumb surgery Liver transplanted Social History (Updated 06/10/22 @ 18:[address] 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 Has never been biopsied but was rate in the chart. The skin changes have improved overall. Does have chronic wounds on his abdomen this been going on for years. They do not heal as the patient continues to pick at them. He denies any fever or chills. Does have a dry nonproductive cough occasionally. All review of systems were negative except as mentioned above in the history of present illness and the other review of systems. Vital Signs Vital Signs Vital Signs: 06/10/22 14:58 06/10/22 15:02 06/10/22 16:00 Temperature 36.6 C Temperature Source Temporal Pulse Rate 152 H 122 H Respiratory Rate 20 H 18 Respiratory Effort Short of Breath Respiratory Depth Normal Respiratory Pattern Tachypnea Blood Pressure 150/110 H 138/99 H Blood Pressure Mean 123 112 Pulse Ox 95 94 Oxygen Delivery Method Nasal Cannula Room Air Nasal Cannula Oxygen Flow Rate (L/min) 2 06/10/22 16:49 06/10/22 17:21 Temperature Temperature Source Pulse Rate 123 H 126 H Respiratory Rate 19 H Respiratory Effort Respiratory Depth Respiratory Pattern Tachypnea Blood Pressure 147/106 H Blood Pressure Mean 119 Pulse Ox Oxygen Delivery Method Oxygen Flow Rate (L/min) Weight Weight: 116.2 kg Body Mass Index (BMI) 41.3 Physical Exam Const Constitutional Narrative: Groggy but is alert and does answer questions appropriately but dozes off quickly. Afebrile. Short shallow respirations. HEENT normocephalic and head/scalp atraumatic Neck no lymphadenopathy Neck Narrative: Redundant neck tissue, could not appreciate any JVD Resp Resp Narrative: Short shallow respirations. Coarse breath sounds bilaterally. Cardio Cardio Narrative: Irregularly irregular. GI normal to inspection, nondistended, normoactive bowel sounds and soft to palpation GI Narrative: Distended. Nontender. Extremity Extremity Narrative: 2+ lower extremity edema Skin Skin Narrative: Superficial erosions on the anterior abdominal wall without any surrounding erythema or induration. Patient does have some brown discoloration of his medial heels. No cellulitis. No ulcers on lower extremities Neuro moves all extremities and no focal motor deficits Psych affect normal Results Lab / Micro Data Attestation: I reviewed the patient's lab results. Result Diagrams: 06/10/22 15:10 06/10/22 15:10 Labs: Laboratory Results - last 24 hr 06/10/22 15:10: WBC 12.8 H, RBC 3.46 L, Hgb 10.9 L, Hct 34.9 L, MCV 100.9 H, MCH 31.5, MCHC 31.2 L, RDW Std Deviation 56.8 H, RDW Coeff of Kecia 15.3 H, Plt Count 202, MPV 11.1, Immature Gran % (Auto) 0.600, Neut % (Auto) 82.6 H, Lymph % (Auto) 7.9 L, [place] % (Auto) 8.1, Eos % (Auto) 0.5, Baso % (Auto) 0.3, Absolute Neuts (auto) 10.5 H, Absolute Lymphs (auto) 1.01, Nucleated RBC % 0 06/10/22 15:10: Sodium 142, Potassium 4.2, Chloride 105, Carbon Dioxide 31.0, Anion Gap 6, BUN 72 H, Creatinine 4.64 H, Estim Creat Clear Calc 12.22, Est GFR (MDRD) Af Amer 16 L, Est GFR (MDRD) Non-Af 13 L, BUN/Creatinine Ratio 15.5, Glucose 116 H, Calcium 8.4 L, Total Bilirubin 0.30, AST 12 L, ALT 20, Alkaline Phosphatase 86, Troponin I High Sens 97 H, Total Protein 6.8, Albumin 2.4 L, Globulin 4.4 H, Albumin/Globulin Ratio 0.5 L 06/10/22 15:10: B-Natriuretic Peptide 202.7 H Micro: Microbiology 06/10/22 15:28 Nasal Secretion SARS-CoV-2 & FLU Antigen (Rapid) - Final EKG Initial EKG: Attestation: I personally reviewed and interpreted this EKG as follows: EKG Rhythm Intrepretation: Atrial Flutter (With right bundle jessica block) Radiology Impression Chest X-Ray 06/10/22 15:32 IMPRESSION: Cardiomegaly and CHF. Electronically Signed: Asher Jefferson MD at 15:43 EST , Assessment & Plan Assessment/Plan (1) New onset atrial flutter: PLAN: Atrial flutter with RVR Patient only transiently responded with 3 rounds of IV 5 mg metoprolol. [id number] is 6 Plan * IV diltiazem with a bolus and then a drip * Check echocardiogram * Consult cardiology * Start anticoagulation with heparin drip. Upon discharge, given his CKD 5, would likely require warfarin for anticoagulation upon discharge. (2) Heart failure with preserved ejection fraction: QUALIFIERS: Heart failure chronicity: acute Qualified Code(s): I50.31 - Acute diastolic (congestive) heart failure PLAN: EF of 65 to 70% from 2D echocardiogram from August 30, 2020 We will give the patient 40 mg IV furosemide tonight and then continue daily. Monitor kidney function closely (3) Chronic kidney disease (CKD): QUALIFIERS: Chronic kidney disease stage: stage 5, not on chronic dialysis Qualified Code(s): N18.5 - Chronic kidney disease, stage 5 PLAN: Stage V Still makes urine but creatinine has steadily gotten worse Consult nephrology Patient does have a fistula in his left upper extremity that was placed in March. Unlikely it is mature enough at this point if dialysis is required (4) Skin ulcer of abdominal wall with fat layer exposed: PLAN: That is chronic. 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 Continue with local wound care. There does not appear any open wounds at this time. Just continue with wrapping. (7) Encephalopathy: PLAN: Patient is groggy but alert but he is confused at times. Will hold his gabapentin, buspirone Cannot rule out that as patient is uremic PLAN: Plan Other chronic conditions * Diabetes mellitus type 2: Insulin-dependent. Continue with basal and sliding scale insulin. * Hypothyroidism: Continue levothyroxine * Peptic ulcer disease: Continue PPI VTE prophylaxis: Not indicated as patient is already anticoagulated. Disposition: To be determined. Patient to be admitted. Patient will be initiated on IV medications with diltiazem as well as a heparin drip. Patient is also to be on IV furosemide. Patient is a high risk of if he were to be discharged prematurely. Charges/Coding Visit Charges Inpatient E&M: 19319 Init Hosp L3
--- NOTE | 2022-06-10 18:08 | NURSING ---
VARUN MAJOR NEW ONSET ATRIAL FLUTTER
[2022-06-10] MEDS: Furosemide 40 MG/4 ML Vial IV (18:39)
[2022-06-10] MEDS: Dextrose 50%-Water 25 GM/50 ML DISP.SYRIN IV ×2 (18:48→18:50)
[2022-06-10 18:57] LABS: International Normalized Ratio 1.3; Prothrombin Time (Protime)PT. 16.2 SECONDS (11.7-14.9)
[2022-06-10 18:58] LABS: Partial Thromboplast Time 31.3 Seconds (24.1-36.2)
--- NOTE | 2022-06-10 19:03 | ED.RN ---
PT UPON THIS RN ENTRANCE WAS UNABLE TO TALK, AND DIAPHORETIC. DR MARCANO BLOOD SUGAR 37. 1 AMP D50 GIVEN. NO RESPONSE, SECOND AMP GIVEN. REPEAT BLOOD GLUCOSE 310. STAT GAS ORDERED
[2022-06-10 19:11] LABS: Allen Test Positive; Base Excess 1 mmol/L (-2 to +2); Bicarbonate 26.9 mmol/L (22-26); Blood Gas Specimen Type ART; O2 Delivery Device Cannula; PO2 84 mmHG (75-100); SITE R Radial; SO2 95 % (95-99); Total Carbon Dioxide 29 mmol/L; pCO2 54.2 mmHg (35-45)
[2022-06-10 20:05] LABS: Bedside Glucose 164 mg/dL (74-106)
[2022-06-10] MEDS: dilTIAZem 25 MG/5 ML Vial 20 MG IV BOLUS (20:25)
[2022-06-10] MEDS: 0.9% Saline Lock 10 ML Syringe IV (20:26)
[2022-06-10] MEDS: Heparin Injection (Vial) 5,000 UNIT/ML VIAL 9500 UNIT IV (20:44)
[2022-06-10] MEDS: HEPARIN/D5w 25,000 UNITS 25,000 UNITS/250 ML IV.SOLN. 16 UNITS CONT INF (20:45)
[2022-06-10 21:03] LABS: Troponin-I HS 119 pg/mL (3.0-78.0)
[2022-06-10 21:35] LABS: Bedside Glucose 93 mg/dL (74-106)
[2022-06-10 21:35] LABS: Bedside Glucose 107 mg/dL (74-106)
[2022-06-11] VITALS (41 sets, daily range): BP systolic 100–146; BP diastolic 51–115; PULSE 68–97; RESP 12–25; TEMP 36.3–37.2; O2SAT 89–100
[2022-06-11] MEDS: Dextrose 50%-Water 25 GM/50 ML DISP.SYRIN IV (00:56)
[2022-06-11] MEDS: Ipratropium/Albuterol Sulfate 3 ML AMPUL.NEB INHALATION (00:58)
[2022-06-11 01:25] LABS: Bedside Glucose 55 mg/dL (74-106)
[2022-06-11 01:35] LABS: Bedside Glucose 97 mg/dL (74-106)
[2022-06-11 01:41] LABS: Troponin-I HS 144 pg/mL (3.0-78.0)
[2022-06-11] MEDS: 0.9% Saline Lock 10 ML Syringe IV ×2 (02:14→04:50)
[2022-06-11] MEDS: Dextrose 10%-Water 250 ML 40 ML IV ×3 (02:14→14:28)
[2022-06-11 03:00] LABS: Partial Thromboplast Time 112.8 Seconds (24.1-36.2)
[2022-06-11] MEDS: Levothyroxine 75 MCG Tablet PO (04:32)
[2022-06-11 04:54] LABS: Absolute Lymphocyte Count 0.97 X10^3/uL (0.83-4.51); Absolute Neutrophil Count 12.5 X10^3/uL (2.0-7.7); Basophil# 0.03 X10^3/uL; Basophil% 0.2 % (0-1); Eosinophil# 0.06 X10^3/uL; Eosinophils% 0.4 % (0-5); Hematocrit 34.5 % (40-54); Hemoglobin 10.4 g/dL (13.0-16.5); Lymphocyte # 0.97 X10^3/ul (0.83-4.51); Lymphocyte % 6.5 % (19-41); Mean Corp Hgb Conc 30.1 g/dL (32-36); Mean Corpuscular Hgb 30.4 pg (27.0-32.0); Mean Corpuscular Volume 100.9 fL (80-94); Mean Platelet Vol. 10.7 fl (6.2-12.0); Monocyte# 1.14 X10^3/uL; Monocyte% 7.7 % (0-10); NRBC Flagged by Analyzer 0 % (0-5); Neutrophil # 12.53 X10^3/uL (2.7-7.7); Neutrophil % 84.5 % (47-70); Platelet Count 213 K/mm3 (150-450); RBC Distribution Width CV 15.2 % (11.6-14.6); RBC Distribution Width SD 56.5 fl (35.1-43.9); Red Blood Count 3.42 M/mm3 (4.6-6.2); White Blood Count 14.8 K/mm3 (4.4-11.0)
[2022-06-11 05:22] LABS: Anion Gap 6 (5-15); BUN 73 mg/dL (7-18); BUN/Creat Ratio 14.7 RATIO (10-20); Calcium,Total 8.2 mg/dL (8.5-10.1); Chloride 106 mmol/L (98-107); Cholesterol 163 mg/dL (200); Creatinine, Serum 4.97 mg/dL (0.70-1.30); EST Glomerular Filtration Rate 12 mL/min (>60); Est Glom Filt Rate - Afr Amer 15 mL/min (>60); Estimated Creatinine Clearance 11.41 ml/min; Glucose 97 mg/dL (74-106); High Density Lipoprotein 79 mg/dL; Magnesium 1.7 mg/dL (1.6-2.6); Potassium 4.4 mmol/L (3.5-5.1); Sodium Level 142 mmol/L (136-145); Triglycerides 67 mg/dL; Very Low Density Lipoprotein 13 mg/dL (5-40)
[2022-06-11 07:00] LABS: Bedside Glucose 92 mg/dL (74-106)
[2022-06-11] MEDS: Smz/Tmp Ds Tablet 1 TABLET PO (07:38)
[2022-06-11] MEDS: Aspirin E.C. 81 MG Tablet PO (07:38)
[2022-06-11] MEDS: predniSONE 20 MG Tablet PO (07:38)
[2022-06-11] MEDS: Tamsulosin HCl 0.4 MG Capsule PO ×2 (07:38→16:59)
[2022-06-11] MEDS: Allopurinol 100 MG Tablet PO (07:38)
[2022-06-11 08:31] LABS: Bedside Glucose 310 mg/dL (74-106)
[2022-06-11 08:31] LABS: Bedside Glucose 37 mg/dL (74-106)
[2022-06-11] MEDS: Fluticasone 0.05% 1 SPRAY NASAL.SRY 2 SPRAY NASAL (10:28)
[2022-06-11] MEDS: Tacrolimus 0.5 MG Capsule PO ×2 (10:28→21:26)
[2022-06-11] MEDS: Insulin Glargine-YFGN 100 UNIT/ML Pen 28 UNIT SC (10:28)
[2022-06-11] MEDS: Metoprolol Tartrate 50 MG Tablet PO ×2 (10:28→21:23)
[2022-06-11] MEDS: Pantoprazole Sodium 40 MG Tablet PO (10:28)
[2022-06-11] MEDS: Calcitriol 0.25 MCG Capsule PO (10:28)
[2022-06-11] MEDS: Furosemide 40 MG/4 ML Vial IV (10:29)
[2022-06-11 10:41] LABS: Partial Thromboplast Time 60.3 Seconds (24.1-36.2)
[2022-06-11 11:41] LABS: Bedside Glucose 172 mg/dL (74-106)
--- NOTE | 2022-06-11 11:49 | PCM.PN.CARD ---
Subjective Subjective Patient seen and evaluated. Appears to be doing better today than yesterday. Objective Data Vital Signs: Vital Signs Temp Pulse Resp BP Pulse Ox O2 Del Method O2 Flow Rate 98.2 F 93 19 H 130/71 H 94 Bi-pap 5 06/11/22 09:00 06/11/22 10:28 06/11/22 10:00 06/11/22 10:00 06/11/22 10:00 06/11/22 10:00 06/11/22 07:58 FiO2 40 06/11/22 10:00 Oxygen Flow Rate (L/min) 5 Oxygen Delivery Method Bi-pap Weight: 253 lb 8.505 oz Body Mass Index (BMI) 40.5 Intake & Output: Intake and Output for Last 24 Hours 06/09/22 06/10/22 06/11/22 23:59 23:59 23:59 Intake Total 18.08 / 20.58 903.83 / 903.83 Output Total 250 / 250 150 / 150 Balance -231.92 / -229.42 753.83 / 753.83 Lab / Micro Data Result Diagrams: 06/11/22 04:45 06/11/22 04:45 Labs: Laboratory Results - last 24 hr 06/10/22 15:10: WBC 12.8 H, RBC 3.46 L, Hgb 10.9 L, Hct 34.9 L, MCV 100.9 H, MCH 31.5, MCHC 31.2 L, RDW Std Deviation 56.8 H, RDW Coeff of Kecia 15.3 H, Plt Count 202, MPV 11.1, Immature Gran % (Auto) 0.600, Neut % (Auto) 82.6 H, Lymph % (Auto) 7.9 L, [place] % (Auto) 8.1, Eos % (Auto) 0.5, Baso % (Auto) 0.3, Absolute Neuts (auto) 10.5 H, Absolute Lymphs (auto) 1.01, Nucleated RBC % 0 06/10/22 15:10: Sodium 142, Potassium 4.2, Chloride 105, Carbon Dioxide 31.0, Anion Gap 6, BUN 72 H, Creatinine 4.64 H, Estim Creat Clear Calc 12.22, Est GFR (MDRD) Af Amer 16 L, Est GFR (MDRD) Non-Af 13 L, BUN/Creatinine Ratio 15.5, Glucose 116 H, Calcium 8.4 L, Total Bilirubin 0.30, AST 12 L, ALT 20, Alkaline Phosphatase 86, Troponin I High Sens 97 H, Total Protein 6.8, Albumin 2.4 L, Globulin 4.4 H, Albumin/Globulin Ratio 0.5 L 06/10/22 15:10: B-Natriuretic Peptide 202.7 H 06/10/22 18:30: PT 16.2 H, INR 1.3, APTT 31.3 06/10/22 18:43: POC Glucose 37 L* 06/10/22 18:53: POC Glucose 310 H 06/10/22 19:33: POC Glucose 164 H 06/10/22 20:30: Troponin I High Sens 119 H 06/10/22 20:30: POC Glucose 107 H 06/10/22 21:18: POC Glucose 93 06/11/22 00:53: POC Glucose 55 L 06/11/22 01:00: Troponin I High Sens 144 H* 06/11/22 01:15: POC Glucose 97 06/11/22 02:15: APTT 112.8 H* 06/11/22 04:45: WBC 14.8 H, RBC 3.42 L, Hgb 10.4 L, Hct 34.5 L, MCV 100.9 H, MCH 30.4, MCHC 30.1 L, RDW Std Deviation 56.5 H, RDW Coeff of Kecia 15.2 H, Plt Count 213, MPV 10.7, Immature Gran % (Auto) 0.700, Neut % (Auto) 84.5 H, Lymph % (Auto) 6.5 L, [place] % (Auto) 7.7, Eos % (Auto) 0.4, Baso % (Auto) 0.2, Absolute Neuts (auto) 12.5 H, Absolute Lymphs (auto) 0.97, Nucleated RBC % 0 06/11/22 04:45: Sodium 142, Potassium 4.4, Chloride 106, Carbon Dioxide 30.0, Anion Gap 6, BUN 73 H, Creatinine 4.97 H, Estim Creat Clear Calc 11.41, Est GFR (MDRD) Af Amer 15 L, Est GFR (MDRD) Non-Af 12 L, BUN/Creatinine Ratio 14.7, Glucose 97, Calcium 8.2 L, Magnesium 1.7, Triglycerides 67, Cholesterol 163, LDL Cholesterol 71, VLDL Cholesterol 13, HDL Cholesterol 79 06/11/22 06:33: POC Glucose 92 06/11/22 10:00: APTT 60.3 H 06/11/22 10:27: POC Glucose 172 H Micro: Microbiology 06/10/22 15:28 Nasal Secretion SARS-CoV-2 & FLU Antigen (Rapid) - Final ABG Data ABG results: ABG 06/10/22 19:07 Specimen Type ART Sample Site R Radial pH 7.30 L Bicarbonate Actual 26.9 H Total CO2 29 Base Excess 1 O2 Saturation 95 ABG pCO2 54.2 H ABG pO2 84 Trevon Test Positive O2 Delivery Device Cannula Liter Flow 6.0 Cardiology Labs/Tests 06/10/22 15:10: WBC 12.8 H, RBC 3.46 L, Hgb 10.9 L, Hct 34.9 L, MCV 100.9 H, MCH 31.5, MCHC 31.2 L, Plt Count 202, MPV 11.1, Immature Gran % (Auto) 0.600, Neut % (Auto) 82.6 H, Lymph % (Auto) 7.9 L, [place] % (Auto) 8.1, Eos % (Auto) 0.5, Baso % (Auto) 0.3, Absolute Neuts (auto) 10.5 H, Nucleated RBC % 0 06/10/22 15:10: Sodium 142, Potassium 4.2, Chloride 105, Carbon Dioxide 31.0, Anion Gap 6, BUN 72 H, Creatinine 4.64 H, Est GFR (MDRD) Af Amer 16 L, Est GFR (MDRD) Non-Af 13 L, BUN/Creatinine Ratio 15.5, Glucose 116 H, Calcium 8.4 L, Total Bilirubin 0.30 06/10/22 15:10: B-Natriuretic Peptide 202.7 H 06/10/22 18:30: PT 16.2 H, INR 1.3, APTT 31.3 06/10/22 19:07: pH 7.30 L, Bicarbonate Actual 26.9 H, Base Excess 1, O2 Saturation 95, ABG pCO2 54.2 H, ABG pO2 84, Trevon Test Positive 06/11/22 02:15: APTT 112.8 H* 06/11/22 04:45: WBC 14.8 H, RBC 3.42 L, Hgb 10.4 L, Hct 34.5 L, MCV 100.9 H, MCH 30.4, MCHC 30.1 L, Plt Count 213, MPV 10.7, Immature Gran % (Auto) 0.700, Neut % (Auto) 84.5 H, Lymph % (Auto) 6.5 L, [place] % (Auto) 7.7, Eos % (Auto) 0.4, Baso % (Auto) 0.2, Absolute Neuts (auto) 12.5 H, Nucleated RBC % 0 06/11/22 04:45: Sodium 142, Potassium 4.4, Chloride 106, Carbon Dioxide 30.0, Anion Gap 6, BUN 73 H, Creatinine 4.97 H, Est GFR (MDRD) Af Amer 15 L, Est GFR (MDRD) Non-Af 12 L, BUN/Creatinine Ratio 14.7, Glucose 97, Calcium 8.2 L, Magnesium 1.7, Triglycerides 67, Cholesterol 163, LDL Cholesterol 71, VLDL Cholesterol 13, HDL Cholesterol 79 06/11/22 10:00: APTT 60.3 H Rhythm: EKG: ECHO: Stress Test: Cardiac Cath: PCI: CT Surgery: Holter monitor: EPS: PPM: CXR: Chest CT Scan: Radiography Diagnostic Testing: Radiology Impression Chest X-Ray 06/10/22 15:32 IMPRESSION: Cardiomegaly and CHF. Electronically Signed: Asher Jefferson MD at 15:43 EST Reading Location ID and State: [facility] / [place] , Service support , Echocardiogram 06/10/22 17:47 Interpretation Summary Normal LV size. Left ventricular systolic function is normal. The estimated ejection fraction is 55 %. Moderate concentric left ventricular hypertrophy. Pulmonary artery systolic pressure is 30 mmHg. Contrast injection was performed. The study was technically difficult. Ordering Physician: Topher Villa Referring Physician: Wilver Garcias M.D. Performed By: Eddy Drew RCS Physical Exam Const General Appearance: cooperative, comfortable and well developed Orientation / Consciousness: awake, oriented to person, oriented to place and oriented to time HEENT normocephalic, head/scalp atraumatic and hearing grossly normal bilaterally Head and Scalp: normal to inspection, normocephalic and atraumatic Eyes General Eye: normal appearance of both eyes Neck full ROM and supple General: normal visual inspection Resp normal respiratory effort Effort and Inspection: able to speak in complete sentences Cardio Rhythm: abnormal rhythm irregularly irregular Skin Wounds: wounds noted Neuro oriented x3, CN's II-XII intact bilaterally, moves all extremities and no focal motor deficits Psych mental status grossly normal Appearance: grossly normal Attitude: calm Activity / Motor Behavior: appropriate eye contact Assessment & Plan Assessment/Plan (1) New onset a-fib: PLAN: Patient presents with new onset atrial fibrillation. My recommendation at this time would be to emphasize rate control. We will repeat his echocardiogram which has shown preserved ejection fraction. Prior to anticoagulation will need to have pharmacy run a drug interaction screen to assess the safety of any of the DOAC's or warfarin We will continue intravenous diltiazem at this time (2) Elevated troponin: PLAN: I suspect his elevated troponin is likely secondary to demand ischemia. Would not recommend any major changes. Thank you for allowing me to participate in the care of your patient. Please don't hesitate to call if any issues arise.
--- NOTE | 2022-06-11 11:50 | PCM.CONS.R ---
Assessment & Plan Assessment/Plan (1) Crgmi-yc-ssubrwf renal failure: PLAN: Creatinine up to 4.9 suspect due to hemodynamic changes from afib/flutter. Monitor renal fxn. May need to initiate dialysis if renal fxn does not improve next few days. He does have a working AVF left forearm. Strict I/O's (2) CKD stage 4 due to type 2 diabetes mellitus: PLAN: baseline creatinine 3.99 with nephrotic proteinuria. Kerendia stopped due to eGFR <25 (3) Acute and chronic respiratory failure ([id number]): PLAN: on BIPAP (4) Heart failure with preserved ejection fraction: QUALIFIERS: Heart failure chronicity: acute Qualified Code(s): I50.31 - Acute diastolic (congestive) heart failure (5) New onset atrial flutter: PLAN: rate controlled (6) OLVIN (obstructive sleep apnea): PLAN: on BIPAP (7) Superficial ulcer of skin: (8) Dyspnea: QUALIFIERS: Dyspnea type: unspecified Qualified Code(s): R06.00 - Dyspnea, unspecified (9) HTN (hypertension): QUALIFIERS: Hypertension type: essential hypertension Qualified Code(s): I10 - Essential (primary) hypertension (10) Diabetes mellitus: QUALIFIERS: Diabetes mellitus type: type 2 Diabetes mellitus complication status: with other specified complication Diabetes mellitus senior living insulin use: with assistant terminal manager use Qualified Code(s): E11.69 - Type 2 diabetes mellitus with other specified complication; Z79.4 - extermination supervisor (current) use of insulin (11) 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 He had poor appetite and increased dyspnea past several days at [facility]. He has chronic kidney disease stage 4-5 due to diabetes and has an AVF placed. He has not started dialysis. He was started on low dose prednisone 20mg daily for positive ANCA with poorly healing leg wounds managed by wound clinic. He was not able to transport himself to see a data security consultant for his vasculitis. Creatinine and leg wounds were improving on prednisone. Creatinine improved from 4.77 on 04/08 to 3.99 on 05/20. Creatinine now elevated at 4.97. He is s/p liver transplant on tacrolimus and bactrim managed by his pcp. He is morbidly obese, has COPD on oxygen at home and CPAP at night. He is not aware of having atrial fibrillation in the past. Denies palpitations, chest pain, nausea, vomiting. His appetite has been poor past several days. Currently on BIPAP. Cardiology consulted for afib/flutter with rvr. Ex at bedside. [facility] Medical History Abdominal pain Efjwe-hm-zjagqan kidney injury Alcohol abuse Alcohol abuse following liver transplant Alcohol withdrawal Anemia Arthritis Chronic dermatitis Cirrhosis Cirrhosis COPD (chronic obstructive pulmonary disease) COPD exacerbation CPAP (continuous positive airway pressure) dependence Depression Diabetes mellitus Dietary restriction Dyspnea Encephalopathy Former smoker Gastric reflux Gout History of anxiety History of CHF (congestive heart failure) History of echocardiogram History of IBS History of renal disease History of skin cancer History of ulceration HTN (hypertension) Hypertension Hypokalemia Hypoxia Infected ulcer of skin Insulin dependent diabetes mellitus Macular degeneration Nausea & vomiting Non-healing non-surgical wound skilled nursing resident On home oxygen therapy Shortness of breath on exertion Skin ulcer of abdominal wall with fat layer exposed Superficial ulcer of skin Thyroid disease Urticaria Venous insufficiency Venous insufficiency of both lower extremities Walker as ambulation aid Wears glasses Home Medications levothyroxine 75 mcg tablet 75 mcg PO DAILY thyroid 11/19/13 [History Last Taken 06/10/22] tacrolimus 1 mg capsule, immediate-release 0.5 mg PO BID transplant med 06/09/16 [History Last Taken 06/10/22] pantoprazole 40 mg tablet,delayed release 40 mg PO MOWEFR gerd 09/07/17 [History Last Taken 06/09/22] allopurinol 100 mg tablet 100 mg PO DAILY Gout 07/07/19 [History Last Taken 06/10/22] bupropion HCl 150 mg tablet,12 hr sustained-release 150 mg PO BID major depressive disorder 07/07/19 [History Last Taken 06/10/22] multivit with minerals-folic acid-lycopene 0.4 mg-600 mcg tablet 1 tablet PO DAILY supplement 07/07/19 [History Last Taken 06/10/22] aspirin 81 mg tablet,delayed release 81 mg PO DAILY@0800 [facility] 08/30/20 [History Last Taken 06/10/22] ergocalciferol (vitamin D2) 1,250 mcg (50,000 unit) capsule 50,000 unit PO MO supplement 08/30/20 [History Last Taken 05/22/22] ketoconazole 2 % shampoo 1 applic TP MOWEFR dry scalp 08/30/20 [History Last Taken 06/09/22] magnesium oxide 400 mg PO TID supplement 08/30/20 [History Last Taken 06/10/22] sertraline 100 mg tablet 100 mg PO QHS depression 08/30/20 [History Last Taken 06/09/22] fluticasone propionate 50 mcg/actuation nasal spray,suspension (Flonase Allergy Relief) 2 spray intranasal DAILY allergies 03/11/21 [History Last Taken 06/10/22] ipratropium 0.5 mg-albuterol 3 mg (2.5 mg base)/3 mL nebulization soln 3 ml inhalation Q6H PRN Wheezing 03/11/21 [History Last Taken 06/10/22] sennosides 8.6 mg tablet (senna) 8.6 mg PO PRN PRN Constipation 03/11/21 [History Last Taken Unknown] zolpidem 5 mg tablet 5 mg PO QHS PRN Insomnia 03/11/21 [History Last Taken 06/09/22] acetaminophen 500 mg tablet 500 mg PO Q6H PRN Pain 02/06/22 [History Last Taken Unknown] bisacodyl 10 mg rectal suppository 10 mg UT Q18H PRN Constipation 02/06/22 [History Last Taken Unknown] calcium carbonate 200 mg calcium (500 mg) chewable tablet (Tums) 200 mg PO Q18H PRN Indigestion 02/06/22 [History Last Taken Unknown] docusate sodium 100 mg capsule (Colace) 100 mg PO DAILY PRN Constipation 02/06/22 [History Last Taken Unknown] furosemide 20 mg tablet (Lasix) 20 mg PO DAILY 02/06/22 [History Last Taken 06/10/22] insulin glargine 100 unit/mL (3 mL) subcutaneous pen (Lantus Solostar U-100 Insulin) 28 unit subcut DAILY 02/06/22 [History Last Taken 06/10/22] loperamide 2 mg capsule (Imodium A-D) 2 mg PO Q6H PRN Diarrhea 02/06/22 [History Last Taken 06/10/22] menthol 4 % topical gel (Biofreeze (menthol)) 1 applic topical BID PRN Pain 02/06/22 [History Last Taken Unknown] miconazole nitrate 2 % topical cream 1 applic topical QHS 02/06/22 [History Last Taken 06/10/22] gabapentin 100 mg capsule 100 mg PO TID 04/04/22 [History Last Taken 06/10/22] semaglutide 0.25 mg or 0.5 mg (2 mg/1.5 mL) subcutaneous pen injector (Ozempic) 0.75 mg subcut MO 04/04/22 [History Last Taken 06/09/22] prednisone 20 mg tablet 20 mg PO DAILY 04/24/22 [History Last Taken 06/10/22] calcitriol 0.25 mcg capsule 0.25 mcg PO DAILY KIDNEY DISEASE 06/10/22 [History Last Taken 06/10/22] cetirizine 10 mg tablet (Zyrtec) 10 mg PO DAILY PRN ALLERGIES 06/10/22 [History Last Taken 06/10/22] sulfamethoxazole 800 mg-trimethoprim 160 mg tablet 1 tab PO MOWEFR INFECTION PREVENTION 06/10/22 [History Last Taken 06/09/22] tamsulosin 0.4 mg capsule 0.4 mg PO BID PROSTAIT 06/10/22 [History Last Taken 06/10/22] Allergy/AdvReac Type Severity Reaction Status Date / Time cortisone [Cortisone] Allergy Angioedema Verified 06/10/22 15:02 Penicillins Allergy Unknown Verified 06/10/22 15:02 Surgical History History of esophagogastroduodenoscopy (EGD) History of excision of pilonidal cyst History of knee surgery History of parathyroid surgery History of tonsillectomy Hx of liver transplant Hx of thumb surgery Liver transplanted Social History (Updated 06/10/22 @ 18:[address] Derick Salgado DO) Smoking Status: Former smoker alcohol intake: former substance use type: does not use ROS Constitutional Constitutional: Reports weakness; Denies chills or fever(s) ENT HEENT: Denies loss taste/smell or nasal congestion Cardiovascular Cardiovascular: Reports dyspnea on exertion, irregular heart rhythm, leg edema and palpitations; Denies chest pain Respiratory/Chest Respiratory/Chest: Reports dyspnea on exertion, portable oxygen @ home and shortness of breath at rest; Denies productive cough Gastrointestinal Gastrointestinal: Reports anorexia; Denies abdominal pain, diarrhea, dry heaves or nausea Genitourinary Genitourinary: Denies change in urinary stream Musculoskeletal Musculoskeletal: Reports other Details: weakness Integumentary Integumentary: Reports other Details: heal wounds, legs wrapped, mild BLE, improved from baseline. Psychiatric Psychiatric: Denies anxiety or confusion Endocrine Endocrinology: Reports fatigue Hematologic/Lymphatic Hematologic/Lymphatic: Reports anemia Physical Exam Const alert, oriented x3 and no apparent distress Constitutional Narrative: on BIPAP General Appearance: well developed and on BiPAP Nutritional Appearance: morbidly obese Eyes PERRL Resp no use of accessory muscles and clear to auscultation bilaterally Resp Narrative: on BIPAP Cardio regular rate GI non-tender GI Narrative: distended, obese Auscultation: normoactive bowel sounds Palpation: soft Extremity General Extremity: AV fistula and edema bilateral (mild, chronic) Skin Skin Narrative: wounds on heal Psych cooperative Lab / Micro Data Result Diagrams: 06/11/22 04:45 06/11/22 04:45 Labs: Laboratory Results - last 24 hr 06/10/22 15:10: WBC 12.8 H, RBC 3.46 L, Hgb 10.9 L, Hct 34.9 L, MCV 100.9 H, MCH 31.5, MCHC 31.2 L, RDW Std Deviation 56.8 H, RDW Coeff of Kecia 15.3 H, Plt Count 202, MPV 11.1, Immature Gran % (Auto) 0.600, Neut % (Auto) 82.6 H, Lymph % (Auto) 7.9 L, [place] % (Auto) 8.1, Eos % (Auto) 0.5, Baso % (Auto) 0.3, Absolute Neuts (auto) 10.5 H, Absolute Lymphs (auto) 1.01, Nucleated RBC % 0 06/10/22 15:10: Sodium 142, Potassium 4.2, Chloride 105, Carbon Dioxide 31.0, Anion Gap 6, BUN 72 H, Creatinine 4.64 H, Estim Creat Clear Calc 12.22, Est GFR (MDRD) Af Amer 16 L, Est GFR (MDRD) Non-Af 13 L, BUN/Creatinine Ratio 15.5, Glucose 116 H, Calcium 8.4 L, Total Bilirubin 0.30, AST 12 L, ALT 20, Alkaline Phosphatase 86, Troponin I High Sens 97 H, Total Protein 6.8, Albumin 2.4 L, Globulin 4.4 H, Albumin/Globulin Ratio 0.5 L 06/10/22 15:10: B-Natriuretic Peptide 202.7 H 06/10/22 18:30: PT 16.2 H, INR 1.3, APTT 31.3 06/10/22 18:43: POC Glucose 37 L* 06/10/22 18:53: POC Glucose 310 H 06/10/22 19:33: POC Glucose 164 H 06/10/22 20:30: Troponin I High Sens 119 H 06/10/22 20:30: POC Glucose 107 H 06/10/22 21:18: POC Glucose 93 06/11/22 00:53: POC Glucose 55 L 06/11/22 01:00: Troponin I High Sens 144 H* 06/11/22 01:15: POC Glucose 97 06/11/22 02:15: APTT 112.8 H* 06/11/22 04:45: WBC 14.8 H, RBC 3.42 L, Hgb 10.4 L, Hct 34.5 L, MCV 100.9 H, MCH 30.4, MCHC 30.1 L, RDW Std Deviation 56.5 H, RDW Coeff of Kecia 15.2 H, Plt Count 213, MPV 10.7, Immature Gran % (Auto) 0.700, Neut % (Auto) 84.5 H, Lymph % (Auto) 6.5 L, [place] % (Auto) 7.7, Eos % (Auto) 0.4, Baso % (Auto) 0.2, Absolute Neuts (auto) 12.5 H, Absolute Lymphs (auto) 0.97, Nucleated RBC % 0 06/11/22 04:45: Sodium 142, Potassium 4.4, Chloride 106, Carbon Dioxide 30.0, Anion Gap 6, BUN 73 H, Creatinine 4.97 H, Estim Creat Clear Calc 11.41, Est GFR (MDRD) Af Amer 15 L, Est GFR (MDRD) Non-Af 12 L, BUN/Creatinine Ratio 14.7, Glucose 97, Calcium 8.2 L, Magnesium 1.7, Triglycerides 67, Cholesterol 163, LDL Cholesterol 71, VLDL Cholesterol 13, HDL Cholesterol 79 06/11/22 06:33: POC Glucose 92 06/11/22 10:00: APTT 60.3 H 06/11/22 10:27: POC Glucose 172 H Micro: Microbiology 06/10/22 15:28 Nasal Secretion SARS-CoV-2 & FLU Antigen (Rapid) - Final ABG Data ABG results: ABG 06/10/22 19:07 Specimen Type ART Sample Site R Radial pH 7.30 L Bicarbonate Actual 26.9 H Total CO2 29 Base Excess 1 O2 Saturation 95 ABG pCO2 54.2 H ABG pO2 84 Trevon Test Positive O2 Delivery Device Cannula Liter Flow 6.0 Radiology Impression Chest X-Ray 06/10/22 15:32 IMPRESSION: Cardiomegaly and CHF. Electronically Signed: Asher Jefferson MD at 15:43 EST , Echocardiogram 06/10/22 17:47 Interpretation Summary Normal LV size. Left ventricular systolic function is normal. The estimated ejection fraction is 55 %. Moderate concentric left ventricular hypertrophy. Pulmonary artery systolic pressure is 30 mmHg. Contrast injection was performed. The study was technically difficult. Ordering Physician: Topher Villa Referring Physician: Wilver Garcias M.D. Performed By: Eddy Drew RCS
--- NOTE | 2022-06-11 12:40 | WOUNDNOTE ---
wound photo: left medial lower leg
--- NOTE | 2022-06-11 12:41 | WOUNDNOTE ---
wound photo: left lateral lower leg/ankle
--- NOTE | 2022-06-11 12:42 | WOUNDNOTE ---
wound photo: right medial lower leg
--- NOTE | 2022-06-11 12:43 | WOUNDNOTE ---
wound photo: right lateral lower leg
--- NOTE | 2022-06-11 12:43 | WOUNDNOTE ---
wound photo: abdomen
--- NOTE | 2022-06-11 14:19 | EKG12_ITS ---
Test Reason : RHYTHM CHANGE Blood Pressure : / mmHG Vent. Rate : 076 BPM Atrial Rate : 312 BPM P-R Int : 000 ms QRS Dur : 140 ms QT Int : 424 ms P-R-T Axes : 108 028 017 degrees QTc Int : 477 ms Atrial flutter with variable A-V block Right bundle branch block Abnormal ECG Confirmed by DARINEL AMBRIZ, OLLIE ([id number]), news videotape editor BEATRIZ MOREL ([id number]) on 06/13/2022 7:51:31 AM Referred By: RASHAWN Confirmed By:OLLIE TENA MD
[2022-06-11] MEDS: Glucerna Shake 120 ML LIQUID PO (14:28)
[2022-06-11] MEDS: HEPARIN/D5w 25,000 UNITS 25,000 UNITS/250 ML IV.SOLN. 13 UNITS CONT INF (16:56)
[2022-06-11] MEDS: Insulin Lispro 100 UNIT/ML INSULN.PEN SC (16:57)
[2022-06-11 17:25] LABS: Bedside Glucose 329 mg/dL (74-106)
--- NOTE | 2022-06-11 18:48 | NURSING ---
Called pt's sister and gave update
--- NOTE | 2022-06-11 18:50 | PN.HOSP_ITS ---
Subjective Subjective On BiPAP this morning during evaluation, feels well otherwise Objective Data Objective Data Vital Signs: Vital Signs Temp Pulse Resp BP Pulse Ox O2 Del Method O2 Flow Rate 97.9 F 73 19 H 100/75 90 Nasal Cannula 5 06/11/22 16:00 06/11/22 17:00 06/11/22 17:00 06/11/22 17:00 06/11/22 17:00 06/11/22 17:00 06/11/22 17:00 FiO2 30 06/11/22 13:15 Oxygen Flow Rate (L/min) 5 Oxygen Delivery Method Nasal Cannula Weight: 253 lb 8.505 oz Body Mass Index (BMI) 40.5 Intake & Output: Intake and Output for Last 24 Hours 06/10/22 06/11/22 06/12/22 03:59 03:59 03:59 Intake Total 270.58 / 280.58 1100.08 / 1100.08 Output Total 400 / 400 90 / 90 Balance -129.42 / -119.42 1010.08 / 1010.08 Lab / Micro Data Result Diagrams: 06/11/22 04:45 06/12/22 04:55 Labs: Laboratory Results - last 24 hr 06/10/22 18:30: PT 16.2 H, INR 1.3, APTT 31.3 06/10/22 18:43: POC Glucose 37 L* 06/10/22 18:53: POC Glucose 310 H 06/10/22 19:33: POC Glucose 164 H 06/10/22 20:30: Troponin I High Sens 119 H 06/10/22 20:30: POC Glucose 107 H 06/10/22 21:18: POC Glucose 93 06/11/22 00:53: POC Glucose 55 L 06/11/22 01:00: Troponin I High Sens 144 H* 06/11/22 01:15: POC Glucose 97 06/11/22 02:15: APTT 112.8 H* 06/11/22 04:45: WBC 14.8 H, RBC 3.42 L, Hgb 10.4 L, Hct 34.5 L, MCV 100.9 H, MCH 30.4, MCHC 30.1 L, RDW Std Deviation 56.5 H, RDW Coeff of Kecia 15.2 H, Plt Count 213, MPV 10.7, Immature Gran % (Auto) 0.700, Neut % (Auto) 84.5 H, Lymph % (Auto) 6.5 L, [place] % (Auto) 7.7, Eos % (Auto) 0.4, Baso % (Auto) 0.2, Absolute Neuts (auto) 12.5 H, Absolute Lymphs (auto) 0.97, Nucleated RBC % 0 06/11/22 04:45: Sodium 142, Potassium 4.4, Chloride 106, Carbon Dioxide 30.0, Anion Gap 6, BUN 73 H, Creatinine 4.97 H, Estim Creat Clear Calc 11.41, Est GFR (MDRD) Af Amer 15 L, Est GFR (MDRD) Non-Af 12 L, BUN/Creatinine Ratio 14.7, Glucose 97, Calcium 8.2 L, Magnesium 1.7, Triglycerides 67, Cholesterol 163, LDL Cholesterol 71, VLDL Cholesterol 13, HDL Cholesterol 79 06/11/22 06:33: POC Glucose 92 06/11/22 10:00: APTT 60.3 H 06/11/22 10:27: POC Glucose 172 H 06/11/22 16:39: POC Glucose 329 H 06/11/22 16:45: APTT 77.0 H Micro: Microbiology 06/10/22 15:28 Nasal Secretion SARS-CoV-2 & FLU Antigen (Rapid) - Final ABG Data ABG results: ABG 06/10/22 19:07 Specimen Type ART Sample Site R Radial pH 7.30 L Bicarbonate Actual 26.9 H Total CO2 29 Base Excess 1 O2 Saturation 95 ABG pCO2 54.2 H ABG pO2 84 Trevon Test Positive O2 Delivery Device Cannula Liter Flow 6.0 Radiography Diagnostic Testing: Radiology Impression Echocardiogram 06/10/22 17:47 Interpretation Summary Normal LV size. Left ventricular systolic function is normal. The estimated ejection fraction is 55 %. Moderate concentric left ventricular hypertrophy. Pulmonary artery systolic pressure is 30 mmHg. Contrast injection was performed. The study was technically difficult. Ordering Physician: Topher Villa Referring Physician: Wilver Garcias M.D. Performed By: Eddy Drew RCS Physical Exam Narrative General: Alert, Oriented x3, Cooperative, No apparent distress HEENT: Atraumatic, PERRLA, EOMI, Normocephalic Oral: Moist Mucosa Neck: Supple, No JVD Lungs: Diminished, Normal air movement, No rhonchi, No wheeze, No rales Cardiovascular: Regular rate, Regular Rhythm, Normal S1, Normal S2, No murmurs Abdomen: Soft, Non Tender, Non-Distended, No Hepato-splenomegaly Extremities: Edema, Capillary Refill Less than 3 Seconds Skin: Chronic abdominal wall breakdown dressing intact, lower extremities with venous stasis dermatitis Musculoskeletal: No Tenderness to Palpation of Joints or Extremities Neurological: Cranial nerves II-XII grossly intact, Motor Exam 5/5 strength throughout, Sensory exam intact to light touch and pain Psych/Mental Status: Normal Affect, Appropriate Assessment & Plan Assessment/Plan (1) New onset atrial flutter: PLAN: Atrial flutter with RVR Patient only transiently responded with 3 rounds of IV 5 mg metoprolol. [id number] is 6 Plan * IV diltiazem with a bolus and then a drip, he was also started on twice daily metoprolol p.o. by cardiology we will continue both * Echo with an EF of 55% and a pulmonary artery systolic pressure of 30 mmHg * Allergies assistance appreciate cardiology's assistance * Will transition to oral Coumadin when able given his renal failure he is likely not a candidate for Eliquis or Xarelto (2) Heart failure with preserved ejection fraction: QUALIFIERS: Heart failure chronicity: acute Qualified Code(s): I50.31 - Acute diastolic (congestive) heart failure PLAN: EF of 65 to 70% from 2D echocardiogram from August 30, 2020 We will give the patient 40 mg IV furosemide tonight and then continue daily. Monitor kidney function closely (3) Chronic kidney disease (CKD): QUALIFIERS: Chronic kidney disease stage: stage 5, not on chronic dialysis Qualified Code(s): N18.5 - Chronic kidney disease, stage 5 PLAN: Stage V Still makes urine but creatinine has steadily gotten worse Appreciate nephrology's assistance If he still remains short of breath may need to start dialysis (4) Skin ulcer of abdominal wall with fat layer exposed: PLAN: That is chronic. 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 Continue with local wound care. There does not appear any open wounds at this time. Just continue with wrapping. (7) Encephalopathy: PLAN: Resolved PLAN: Plan Other chronic conditions * Diabetes mellitus type 2: Insulin-dependent. Continue with basal and sliding scale insulin. * Hypothyroidism: Continue levothyroxine * Peptic ulcer disease: Continue PPI DVT: Heparin drip Charges/Coding Visit Charges Inpatient E&M: 75351 Subs Hosp L2
[2022-06-12] VITALS (28 sets, daily range): BP systolic 120–171; BP diastolic 71–112; PULSE 75–81; RESP 12–29; TEMP 35.9–36.6; O2SAT 92–100
[2022-06-12 05:19] LABS: Partial Thromboplast Time 57.2 Seconds (24.1-36.2)
[2022-06-12 05:27] LABS: BUN 80 mg/dL (7-18); BUN/Creat Ratio 14.8 RATIO (10-20); Calcium,Total 8.5 mg/dL (8.5-10.1); Chloride 101 mmol/L (98-107); Creatinine, Serum 5.42 mg/dL (0.70-1.30); EST Glomerular Filtration Rate 11 mL/min (>60); Est Glom Filt Rate - Afr Amer 13 mL/min (>60); Estimated Creatinine Clearance 10.46 ml/min; Glucose 184 mg/dL (74-106); Phosphorus 4.9 mg/dL (2.5-4.9); Potassium 4.6 mmol/L (3.5-5.1); Sodium Level 136 mmol/L (136-145)
[2022-06-12] MEDS: Levothyroxine 75 MCG Tablet PO (06:36)
[2022-06-12 06:46] LABS: Bedside Glucose 174 mg/dL (74-106)
[2022-06-12] MEDS: Insulin Lispro 100 UNIT/ML INSULN.PEN SC ×3 (08:20→16:08)
[2022-06-12] MEDS: Metoprolol Tartrate 50 MG Tablet PO ×2 (08:21→21:19)
[2022-06-12] MEDS: Aspirin E.C. 81 MG Tablet PO (08:22)
[2022-06-12] MEDS: Calcitriol 0.25 MCG Capsule PO (08:22)
[2022-06-12] MEDS: Allopurinol 100 MG Tablet PO (08:22)
[2022-06-12] MEDS: Tamsulosin HCl 0.4 MG Capsule PO ×2 (08:22→16:15)
[2022-06-12] MEDS: predniSONE 20 MG Tablet PO (08:22)
[2022-06-12] MEDS: Fluticasone 0.05% 1 SPRAY NASAL.SRY 2 SPRAY NASAL (08:23)
[2022-06-12] MEDS: Furosemide 40 MG/4 ML Vial IV (08:24)
[2022-06-12] MEDS: Tacrolimus 0.5 MG Capsule PO ×2 (08:25→21:19)
--- NOTE | 2022-06-12 09:20 | CPS ---
Notified by LAUREL Mckinnon for need of BiPAP for increased SOB. Patient placed on BiPAP. RN notified.
--- NOTE | 2022-06-12 09:41 | PN.RENAL_ITS ---
Subjective Subjective Creatinine worse, urine output poor. Continues to complain of shortness of breath. Back on BiPAP. He will likely need to initiate dialysis today with new fistula protocol. Received permission to use AV fistula according to surgery note visit from 06/04.. Objective Data Objective Data Vital Signs: Vital Signs Temp Pulse Resp BP Pulse Ox O2 Del Method O2 Flow Rate 97.6 F L 78 16 121/89 H 95 Nasal Cannula 5 06/12/22 04:00 06/12/22 08:21 06/12/22 08:06 06/12/22 08:21 06/12/22 08:06 06/12/22 08:06 06/12/22 08:06 FiO2 30 06/12/22 05:10 Oxygen Flow Rate (L/min) 5 Oxygen Delivery Method Nasal Cannula Weight: 116.5 kg Body Mass Index (BMI) 40.5 Intake & Output: Intake and Output for Last 24 Hours 06/10/22 06/11/22 06/12/22 23:59 23:59 23:59 Intake Total 18.08 / 20.58 1563.91 / 1568.91 45.42 / 45.42 Output Total 250 / 250 240 / 240 0 / 0 Balance -231.92 / -229.42 1323.91 / 1328.91 45.42 / 45.42 Lab / Micro Data Result Diagrams: 06/11/22 04:45 06/12/22 04:55 Labs: Laboratory Results - last 24 hr 06/11/22 10:00: APTT 60.3 H 06/11/22 10:27: POC Glucose 172 H 06/11/22 16:39: POC Glucose 329 H 06/11/22 16:45: APTT 77.0 H 06/12/22 04:55: Sodium 136, Potassium 4.6, Chloride 101, Carbon Dioxide 29.0, BUN 80 H, Creatinine 5.42 H, Estim Creat Clear Calc 10.46, Est GFR (MDRD) Af Amer 13 L, Est GFR (MDRD) Non-Af 11 L, BUN/Creatinine Ratio 14.8, Glucose 184 H, Calcium 8.5, Phosphorus 4.9, Albumin 2.0 L 06/12/22 04:55: APTT 57.2 H 06/12/22 06:23: POC Glucose 174 H Micro: Microbiology 06/10/22 15:28 Nasal Secretion SARS-CoV-2 & FLU Antigen (Rapid) - Final Radiography Diagnostic Testing: Radiology Impression Echocardiogram 06/10/22 17:47 Interpretation Summary Normal LV size. Left ventricular systolic function is normal. The estimated ejection fraction is 55 %. Moderate concentric left ventricular hypertrophy. Pulmonary artery systolic pressure is 30 mmHg. Contrast injection was performed. The study was technically difficult. Ordering Physician: Topher Villa Referring Physician: Wilver Garcias M.D. Performed By: Eddy Drew RCS Physical Exam Const alert and oriented x3 General Appearance: well developed and on BiPAP Nutritional Appearance: morbidly obese HEENT Head and Scalp: atraumatic Eyes EOMs intact bilaterally Resp clear to auscultation bilaterally Resp Narrative: Mildly dyspneic back on BiPAP Cardio regular rate and no rub Extremity Extremity Narrative: Mild lower extremity edema General Extremity: AV fistula Neuro Sensorium / Orientation: awake and alert Psych cooperative Assessment & Plan Assessment/Plan (1) [id number] renal failure: PLAN: Creatinine up to 5.42 today from 4.9 yesterday. Discussed with patient that we will initiate dialysis with his AV fistula new fistula protocol. Anticipate next dialysis tomorrow. (2) CKD stage 4 due to type 2 diabetes mellitus: PLAN: baseline creatinine 3.99 with nephrotic proteinuria. Kerendia stopped due to eGFR <25. He may be ESRD now with rising creatinine and low urine output (3) Acute and chronic respiratory failure ([id number]): PLAN: on BIPAP (4) Heart failure with preserved ejection fraction: QUALIFIERS: Heart failure chronicity: acute Qualified Code(s): I50.31 - Acute diastolic (congestive) heart failure (5) New onset atrial flutter: PLAN: rate controlled (6) OLVIN (obstructive sleep apnea): PLAN: on BIPAP (7) Superficial ulcer of skin: (8) Dyspnea: QUALIFIERS: Dyspnea type: unspecified Qualified Code(s): R06.00 - Dyspnea, unspecified (9) HTN (hypertension): QUALIFIERS: Hypertension type: essential hypertension Qualified Code(s): I10 - Essential (primary) hypertension (10) Diabetes mellitus: QUALIFIERS: Diabetes mellitus complication status: with other specified complication Diabetes mellitus terminal carman insulin use: with intermediate use Diabetes mellitus type: type 2 Qualified Code(s): E11.69 - Type 2 diabetes mellitus with other specified complication; Z79.4 - retirement (current) use of insulin (11) 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
[2022-06-12] MEDS: Ipratropium/Albuterol Sulfate 3 ML AMPUL.NEB INHALATION (09:54)
[2022-06-12] MEDS: Insulin Glargine-YFGN 100 UNIT/ML Pen 28 UNIT SC (10:02)
--- NOTE | 2022-06-12 10:56 | CASEMGMT ---
Addendum entered by Arlette Moore 06/12/22 11:17: SW spoke with Concrete Mixer and patient will be started on dialysis. Patient will likely need this as an outpatient. Patient will likely be End Stage Renal Disease. ALE notified RN PENELOPE Collado and Director Toshia Zuñiga. ALE also notified [facility] via [employer]. Plan: d/c to [facility] under skilled level of care pending pre-cert, being medically ready, and outpatient dialysis set up through [facility] at [facility] as patient will be going to the skilled nursing side. Arlette MELENDREZ Original Note: Patient is from [facility]. SW reviewed PT/OT and SNF is being recommended. SW met with patient. Introduced self and role at [facility]. SW told patient therapy is recommending he go to rehab before returning to assisted living. Patient was agreeable. He declined a list as he is from [facility] so he would just to their skilled side. ALE sent referral via [employer]. ALE also called Sal at [facility] and left him a voice mail letting him know that patient will eventually be going to the skilled nursing side. Arlette MELENDREZ
--- NOTE | 2022-06-12 11:08 | PN.CARD_ITS ---
Documented by User: LAUREL Lu 06/12/22 11:20 Subjective Subjective Patient seen and evaluated. Pt notes that he feels slightly better than yesterday but is still SOB. He asked to be placed back on his Bipap. Objective Data Vital Signs: Vital Signs Temp Pulse Resp BP Pulse Ox O2 Del Method O2 Flow Rate 97.6 F L 79 18 121/89 H 100 Nasal Cannula 5 06/12/22 04:00 06/12/22 09:55 06/12/22 09:55 06/12/22 08:21 06/12/22 09:20 06/12/22 08:06 06/12/22 08:06 FiO2 40 06/12/22 09:20 Oxygen Flow Rate (L/min) 5 Oxygen Delivery Method Nasal Cannula Weight: 256 lb 13.416 oz Body Mass Index (BMI) 40.5 Intake & Output: Intake and Output for Last 24 Hours 06/10/22 06/11/22 06/12/22 23:59 23:59 23:59 Intake Total 18.08 / 20.58 1563.91 / 1568.91 45.42 / 45.42 Output Total 250 / 250 240 / 240 0 / 0 Balance -231.92 / -229.42 1323.91 / 1328.91 45.42 / 45.42 Lab / Micro Data Result Diagrams: 06/11/22 04:45 06/12/22 04:55 Labs: Laboratory Results - last 24 hr 06/11/22 10:27: POC Glucose 172 H 06/11/22 16:39: POC Glucose 329 H 06/11/22 16:45: APTT 77.0 H 06/12/22 04:55: Sodium 136, Potassium 4.6, Chloride 101, Carbon Dioxide 29.0, BUN 80 H, Creatinine 5.42 H, Estim Creat Clear Calc 10.46, Est GFR (MDRD) Af Amer 13 L, Est GFR (MDRD) Non-Af 11 L, BUN/Creatinine Ratio 14.8, Glucose 184 H, Calcium 8.5, Phosphorus 4.9, Albumin 2.0 L 06/12/22 04:55: APTT 57.2 H 06/12/22 06:23: POC Glucose 174 H Cardiology Labs/Tests 06/11/22 16:45: APTT 77.0 H 06/12/22 04:55: Sodium 136, Potassium 4.6, Chloride 101, Carbon Dioxide 29.0, BUN 80 H, Creatinine 5.42 H, Est GFR (MDRD) Af Amer 13 L, Est GFR (MDRD) Non-Af 11 L, BUN/Creatinine Ratio 14.8, Glucose 184 H, Calcium 8.5, Phosphorus 4.9 06/12/22 04:55: APTT 57.2 H Rhythm: Afib with HR of 77 Physical Exam Const General Appearance: cooperative, comfortable and well developed Orientation / Consciousness: awake, oriented to person, oriented to place and oriented to time HEENT normocephalic, head/scalp atraumatic and hearing grossly normal bilaterally Head and Scalp: normal to inspection, normocephalic and atraumatic Eyes General Eye: normal appearance of both eyes Neck full ROM and supple General: normal visual inspection Resp normal respiratory effort Effort and Inspection: able to speak in complete sentences and labored Auscultation: diminished lung sounds bilateral Cardio Rhythm: abnormal rhythm irregularly irregular GI Auscultation: normoactive bowel sounds Extremity Extremity Narrative: edema up to knees Skin Wounds: wounds noted Neuro oriented x3, CN's II-XII intact bilaterally, moves all extremities and no focal motor deficits Psych mental status grossly normal Appearance: grossly normal Attitude: calm Activity / Motor Behavior: appropriate eye contact Assessment & Plan Assessment/Plan (1) New onset a-fib: PLAN: Patient presents with new onset atrial fibrillation. * will continue with rate control. Will continue with rate control. Will stop IV Cardizem and switch to oral. * will discuss with hospital about starting coumadin as it will take a few days for him to be therapeutic. He can continue with heparin until he is is therapeutic. * Echo demonstrated a presevered EFof 55% (2) Elevated troponin: PLAN: * Suspect his elevated troponin is likely secondary to demand ischemia. Would not recommend any major changes. Charges/Coding Visit Charges Inpatient E&M: 01590 Subs Hosp L2 Documented by User: Dr. Pool Shannon MD 06/12/22 18:19 Lab / Micro Data Result Diagrams: 06/11/22 04:45 06/12/22 04:55 Assessment & Plan Assessment/Plan (1) New onset a-fib: (2) Elevated troponin: PLAN: Plan Independently evaluated this patient and reviewed all his current cardiac assessment Patient has mild elevation of cardiac biomarker high sensitive troponin secondary to demand myocardial ischemia and type II WA Echocardiographic evaluation LV function is preserved with a normal ejection fraction We will continue rate control using Cardizem as well as beta-gian metoprolol. As well as anticoagulation with warfarin with a target INR 2?3 We will continue to monitor and follow-up clinically during this admission.
[2022-06-12 11:45] LABS: Bedside Glucose 288 mg/dL (74-106)
--- NOTE | 2022-06-12 12:01 | PCM.PN.HOSP ---
Subjective Subjective Off of BiPAP this morning, feels little bit better than he did yesterday, still short of breath Objective Data Objective Data Vital Signs: Vital Signs Temp Pulse Resp BP Pulse Ox O2 Del Method O2 Flow Rate 97.6 F L 79 18 121/89 H 100 Nasal Cannula 5 06/12/22 04:00 06/12/22 09:55 06/12/22 09:55 06/12/22 08:21 06/12/22 09:20 06/12/22 11:47 06/12/22 11:47 FiO2 40 06/12/22 09:20 Oxygen Flow Rate (L/min) 5 Oxygen Delivery Method Nasal Cannula Weight: 256 lb 13.416 oz Body Mass Index (BMI) 40.5 Intake & Output: Intake and Output for Last 24 Hours 06/11/22 06/12/22 06/13/22 03:59 03:59 03:59 Intake Total 270.58 / 280.58 1331.41 / 1336.41 25.42 / 25.42 Output Total 400 / 400 90 / 90 Balance -129.42 / -119.42 1241.41 / 1246.41 25.42 / 25.42 Lab / Micro Data Result Diagrams: 06/11/22 04:45 06/12/22 04:55 Labs: Laboratory Results - last 24 hr 06/11/22 16:39: POC Glucose 329 H 06/11/22 16:45: APTT 77.0 H 06/12/22 04:55: Sodium 136, Potassium 4.6, Chloride 101, Carbon Dioxide 29.0, BUN 80 H, Creatinine 5.42 H, Estim Creat Clear Calc 10.46, Est GFR (MDRD) Af Amer 13 L, Est GFR (MDRD) Non-Af 11 L, BUN/Creatinine Ratio 14.8, Glucose 184 H, Calcium 8.5, Phosphorus 4.9, Albumin 2.0 L 06/12/22 04:55: APTT 57.2 H 06/12/22 06:23: POC Glucose 174 H 06/12/22 11:24: POC Glucose 288 H Micro: Microbiology 06/10/22 15:28 Nasal Secretion SARS-CoV-2 & FLU Antigen (Rapid) - Final Physical Exam Narrative General: Alert, Oriented x3, Cooperative, No apparent distress HEENT: Atraumatic, PERRLA, EOMI, Normocephalic Oral: Moist Mucosa Neck: Supple, No JVD Lungs: Diminished, Normal air movement, No rhonchi, No wheeze, No rales Cardiovascular: Regular rate, Regular Rhythm, Normal S1, Normal S2, No murmurs Abdomen: Soft, Non Tender, Non-Distended, No Hepato-splenomegaly Extremities: Edema, Capillary Refill Less than 3 Seconds Skin: Chronic abdominal wall breakdown dressing intact, lower extremities with venous stasis dermatitis Musculoskeletal: No Tenderness to Palpation of Joints or Extremities Neurological: Cranial nerves II-XII grossly intact, Motor Exam 5/5 strength throughout, Sensory exam intact to light touch and pain Psych/Mental Status: Normal Affect, Appropriate Assessment & Plan Assessment/Plan (1) New onset atrial flutter: PLAN: Atrial flutter with RVR Patient only transiently responded with 3 rounds of IV 5 mg metoprolol. [id number] is 6 Plan Discontinue his IV Cardizem and transition to oral medications per cardiology Echo with an EF of 55% and a pulmonary artery systolic pressure of 30 mmHg Appreciate cardiology's assistance Will start Coumadin tonight (2) Heart failure with preserved ejection fraction: QUALIFIERS: Heart failure chronicity: acute Qualified Code(s): I50.31 - Acute diastolic (congestive) heart failure PLAN: EF of 65 to 70% from 2D echocardiogram from August 30, 2020 We will give the patient 40 mg IV furosemide tonight and then continue daily. Monitor kidney function closely (3) Chronic kidney disease (CKD): QUALIFIERS: Chronic kidney disease stage: stage 5, not on chronic dialysis Qualified Code(s): N18.5 - Chronic kidney disease, stage 5 PLAN: Stage V Still makes urine but creatinine has steadily gotten worse Appreciate nephrology's assistance Discussed with nephrology likely start dialysis today given his continued shortness of breath and his rising renal function (4) Skin ulcer of abdominal wall with fat layer exposed: PLAN: That is chronic. 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 Continue with local wound care. There does not appear any open wounds at this time. Just continue with wrapping. (7) Encephalopathy: PLAN: Resolved PLAN: Plan Other chronic conditions Diabetes mellitus type 2: Insulin-dependent. Continue with basal and sliding scale insulin. Hypothyroidism: Continue levothyroxine Peptic ulcer disease: Continue PPI DVT: Heparin drip and Coumadin Charges/Coding Visit Charges Inpatient E&M: 39272 [facility] Hosp L2
[2022-06-12] MEDS: dilTIAZem CD 120 MG Capsule PO (12:12)
[2022-06-12] MEDS: Glucerna Shake 120 ML LIQUID PO (14:30)
--- NOTE | 2022-06-12 14:53 | CASEMGMT ---
EAGLE NEGRETE: Confirmed with Dr. Lomax pt with likely ESRD. Referral for HD at [facility] with [facility] submitted via [employer] online portal. Will need to submit Hep labs and HD orders when available. Will monitor for financial benefit verification and subsequent acceptance and start of care. Héctor Zuñiga RN CM
[2022-06-12] MEDS: HEPARIN/D5w 25,000 UNITS 25,000 UNITS/250 ML IV.SOLN. 13 UNITS CONT INF (16:06)
[2022-06-12 16:50] LABS: Bedside Glucose 305 mg/dL (74-106)
[2022-06-12 21:04] LABS: Hepatitis B Surface Antibody Non-Reactive
[2022-06-12 21:13] LABS: Hepatitis B Surface Antigen Non-Reactive (Nonreactive)
--- NOTE | 2022-06-12 21:18 | DIALYSIS ---
first dialysis completed x 2.5 hrs. Access via LFA AVF, 17G needles. Net UF 1000ml. pt [place]. pt was anxious throughout tx. See HD flowsheet on chart.
[2022-06-12] MEDS: LORazepam 1 MG Tablet PO (21:19)
[2022-06-13] VITALS (14 sets, daily range): BP systolic 120–153; BP diastolic 73–101; PULSE 77–80; RESP 12–22; TEMP 2.7–36.8; O2SAT 93–97
--- NOTE | 2022-06-13 00:35 | NURSING ---
received report from IT COMMUNICATIONS MANAGER.
[2022-06-13] MEDS: Glucerna Shake 120 ML LIQUID PO ×2 (05:10→21:25)
[2022-06-13] MEDS: Levothyroxine 75 MCG Tablet PO (05:10)
[2022-06-13] MEDS: Insulin Lispro 100 UNIT/ML INSULN.PEN SC ×3 (06:34→18:31)
[2022-06-13] MEDS: hydrOXYzine PAM 25 MG Capsule PO ×2 (06:55→21:25)
[2022-06-13 07:01] LABS: Bedside Glucose 217 mg/dL (74-106)
[2022-06-13 07:07] LABS: Absolute Lymphocyte Count 0.97 X10^3/uL (0.83-4.51); Absolute Neutrophil Count 10.5 X10^3/uL (2.0-7.7); Basophil# 0.02 X10^3/uL; Basophil% 0.2 % (0-1); Eosinophil# 0.06 X10^3/uL; Eosinophils% 0.5 % (0-5); Hematocrit 33.3 % (40-54); Hemoglobin 10.5 g/dL (13.0-16.5); Lymphocyte # 0.97 X10^3/ul (0.83-4.51); Lymphocyte % 7.7 % (19-41); Mean Corp Hgb Conc 31.5 g/dL (32-36); Mean Corpuscular Volume 98.2 fL (80-94); Mean Platelet Vol. 11.7 fl (6.2-12.0); Monocyte# 0.88 X10^3/uL; NRBC Flagged by Analyzer 0 % (0-5); Neutrophil # 10.52 X10^3/uL (2.7-7.7); Neutrophil % 83.9 % (47-70); Platelet Count 228 K/mm3 (150-450); RBC Distribution Width SD 53.8 fl (35.1-43.9); Red Blood Count 3.39 M/mm3 (4.6-6.2); White Blood Count 12.5 K/mm3 (4.4-11.0)
[2022-06-13 07:26] LABS: International Normalized Ratio 1.3; Prothrombin Time (Protime)PT. 15.7 SECONDS (11.7-14.9)
[2022-06-13 07:27] LABS: Partial Thromboplast Time 36.7 Seconds (24.1-36.2)
[2022-06-13 07:35] LABS: BUN 70 mg/dL (7-18); BUN/Creat Ratio 14.8 RATIO (10-20); Calcium,Total 8.7 mg/dL (8.5-10.1); Chloride 102 mmol/L (98-107); Creatinine, Serum 4.72 mg/dL (0.70-1.30); EST Glomerular Filtration Rate 13 mL/min (>60); Est Glom Filt Rate - Afr Amer 16 mL/min (>60); Estimated Creatinine Clearance 12.02 ml/min; Glucose 223 mg/dL (74-106); Phosphorus 3.7 mg/dL (2.5-4.9); Potassium 4.4 mmol/L (3.5-5.1); Sodium Level 136 mmol/L (136-145)
[2022-06-13] MEDS: predniSONE 20 MG Tablet PO (09:07)
[2022-06-13] MEDS: Calcitriol 0.25 MCG Capsule PO (09:07)
[2022-06-13] MEDS: dilTIAZem CD 120 MG Capsule PO (09:07)
[2022-06-13] MEDS: Fluticasone 0.05% 1 SPRAY NASAL.SRY 2 SPRAY NASAL (09:07)
[2022-06-13] MEDS: Smz/Tmp Ds Tablet 1 TABLET PO (09:08)
[2022-06-13] MEDS: Metoprolol Tartrate 50 MG Tablet PO ×2 (09:08→21:25)
[2022-06-13] MEDS: Pantoprazole Sodium 40 MG Tablet PO (09:08)
[2022-06-13] MEDS: Tamsulosin HCl 0.4 MG Capsule PO ×2 (09:08→18:35)
[2022-06-13] MEDS: Allopurinol 100 MG Tablet PO (09:08)
[2022-06-13] MEDS: Aspirin E.C. 81 MG Tablet PO (09:08)
[2022-06-13] MEDS: Tacrolimus 0.5 MG Capsule PO ×2 (09:09→21:25)
[2022-06-13] MEDS: Insulin Glargine-YFGN 100 UNIT/ML Pen 28 UNIT SC (09:10)
[2022-06-13] MEDS: 0.9% Saline Lock 10 ML Syringe IV (09:11)
[2022-06-13] MEDS: Furosemide 40 MG/4 ML Vial IV (09:11)
[2022-06-13] MEDS: Heparin Injection (Vial) 5,000 UNIT/ML VIAL IV ×3 (09:16→23:21)
--- NOTE | 2022-06-13 10:18 | PN.HOSP_ITS ---
Subjective Subjective Feels marginally better than yesterday with his dialysis Objective Data Objective Data Vital Signs: Vital Signs Temp Pulse Resp BP Pulse Ox O2 Del Method O2 Flow Rate 97.8 F 78 17 151/79 H 93 Nasal Cannula 5 06/13/22 09:00 06/13/22 09:08 06/13/22 09:00 06/13/22 09:00 06/13/22 09:00 06/13/22 09:00 06/13/22 09:00 FiO2 35 06/13/22 08:30 Oxygen Flow Rate (L/min) 5 Oxygen Delivery Method Nasal Cannula Weight: 256 lb 13.416 oz Body Mass Index (BMI) 40.5 Intake & Output: Intake and Output for Last 24 Hours 06/12/22 06/13/22 06/14/22 03:59 03:59 03:59 Intake Total 1331.41 / 1336.41 495.17 / 495.17 223.6 / 223.6 Output Total 90 / 90 1000 / 1000 Balance 1241.41 / 1246.41 -504.83 / -504.83 223.6 / 223.6 Lab / Micro Data Result Diagrams: 06/13/22 06:45 06/13/22 06:45 Labs: Laboratory Results - last 24 hr 06/12/22 11:24: POC Glucose 288 H 06/12/22 16:02: POC Glucose 305 H 06/12/22 : Hep Bs Antigen Non-Reactive 06/12/22 : Hep Bs Antibody Non-Reactive 06/13/22 06:33: POC Glucose 217 H 06/13/22 06:45: Sodium 136, Potassium 4.4, Chloride 102, Carbon Dioxide 26.0, BUN 70 H, Creatinine 4.72 H, Estim Creat Clear Calc 12.02, Est GFR (MDRD) Af Amer 16 L, Est GFR (MDRD) Non-Af 13 L, BUN/Creatinine Ratio 14.8, Glucose 223 H, Calcium 8.7, Phosphorus 3.7, Albumin 2.0 L 06/13/22 06:45: WBC 12.5 H, RBC 3.39 L, Hgb 10.5 L, Hct 33.3 L, MCV 98.2 H, MCH 31.0, MCHC 31.5 L, RDW Std Deviation 53.8 H, RDW Coeff of Kecia 15.0 H, Plt Count 228, MPV 11.7, Immature Gran % (Auto) 0.700, Neut % (Auto) 83.9 H, Lymph % (Auto ) 7.7 L, [place] % (Auto) 7.0, Eos % (Auto) 0.5, Baso % (Auto) 0.2, Absolute Neuts (auto) 10.5 H, Absolute Lymphs (auto) 0.97, Nucleated RBC % 0 06/13/22 06:45: PT 15.7 H, INR 1.3, APTT 36.7 H Micro: Microbiology 06/10/22 15:28 Nasal Secretion SARS-CoV-2 & FLU Antigen (Rapid) - Final Physical Exam Narrative General: Alert, Oriented x3, Cooperative, No apparent distress HEENT: Atraumatic, PERRLA, EOMI, Normocephalic Oral: Moist Mucosa Neck: Supple, No JVD Lungs: Diminished, Normal air movement, No rhonchi, No wheeze, No rales Cardiovascular: Regular rate, Regular Rhythm, Normal S1, Normal S2, No murmurs Abdomen: Soft, Non Tender, Non-Distended, No Hepato-splenomegaly Extremities: Edema, Capillary Refill Less than 3 Seconds Skin: Chronic abdominal wall breakdown dressing intact, lower extremities with venous stasis dermatitis Musculoskeletal: No Tenderness to Palpation of Joints or Extremities Neurological: Cranial nerves II-XII grossly intact, Motor Exam 5/5 strength throughout, Sensory exam intact to light touch and pain Psych/Mental Status: Normal Affect, Appropriate Assessment & Plan Assessment/Plan (1) New onset atrial flutter: PLAN: Atrial flutter with RVR Patient only transiently responded with 3 rounds of IV 5 mg metoprolol. [id number] is 6 Plan * 8 flutter being controlled with oral medications, including metoprolol and Cardizem * Echo with an EF of 55% and a pulmonary artery systolic pressure of 30 mmHg * Appreciate cardiology's assistance * Will start Coumadin and monitor INR (2) Heart failure with preserved ejection fraction: QUALIFIERS: Heart failure chronicity: acute Qualified Code(s): I50.31 - Acute diastolic (congestive) heart failure PLAN: EF of 65 to 70% from 2D echocardiogram from August 30, 2020 We will give the patient 40 mg IV furosemide tonight and then continue daily. Currently undergoing dialysis, will continue with Lasix appreciate nephrology's assistance (3) Chronic kidney disease (CKD): QUALIFIERS: Chronic kidney disease stage: stage 5, not on chronic dialysis Qualified Code(s): N18.5 - Chronic kidney disease, stage 5 PLAN: Stage V Still makes urine but creatinine has steadily gotten worse Appreciate nephrology's assistance He had about a liter off of fluid with dialysis yesterday possible dialysis again today (4) Skin ulcer of abdominal wall with fat layer exposed: PLAN: That is chronic. 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 Continue with local wound care. There does not appear any open wounds at this time. Just continue with wrapping. (7) Encephalopathy: PLAN: Resolved PLAN: Plan Other chronic conditions * Diabetes mellitus type 2: Insulin-dependent. Continue with basal and sliding scale insulin. * Hypothyroidism: Continue levothyroxine * Peptic ulcer disease: Continue PPI DVT: Heparin drip and Coumadin Charges/Coding Visit Charges Inpatient E&M: 69948 Subs Hosp L2
[2022-06-13] MEDS: HEPARIN/D5w 25,000 UNITS 25,000 UNITS/250 ML IV.SOLN. 15 UNITS CONT INF (11:09)
--- NOTE | 2022-06-13 11:21 | CASEMGMT ---
SW did call [facility] and ask that they start the pre-cert. Plan: d/c to [facility] pending pre-cert and dialysis set up. Arlette Moore MSW BIBLE WORKER
--- NOTE | 2022-06-13 11:46 | PCM.PN.REN ---
Subjective Subjective transferred to PCU. Tolerated dialysis yesterday. Dialysis today with AVF. Still SOB, edematous. Objective Data Objective Data Vital Signs: Vital Signs Temp Pulse Resp BP Pulse Ox O2 Del Method O2 Flow Rate 97.8 F 78 17 151/79 H 93 Nasal Cannula 5 06/13/22 09:00 06/13/22 09:08 06/13/22 09:00 06/13/22 09:00 06/13/22 09:00 06/13/22 09:00 06/13/22 09:00 FiO2 35 06/13/22 08:30 Oxygen Flow Rate (L/min) 5 Oxygen Delivery Method Nasal Cannula Weight: 116.5 kg Body Mass Index (BMI) 40.5 Intake & Output: Intake and Output for Last 24 Hours 06/11/22 06/12/22 06/13/22 23:59 23:59 23:59 Intake Total 1563.91 / 1568.91 515.17 / 515.17 250.0 / 250.0 Output Total 240 / 240 1000 / 1000 0 / 0 Balance 1323.91 / 1328.91 -484.83 / -484.83 250.0 / 250.0 Lab / Micro Data Result Diagrams: 06/13/22 06:45 06/13/22 06:45 Labs: Laboratory Results - last 24 hr 06/12/22 16:02: POC Glucose 305 H 06/12/22 : Hep Bs Antigen Non-Reactive 06/12/22 : Hep Bs Antibody Non-Reactive 06/13/22 06:33: POC Glucose 217 H 06/13/22 06:45: Sodium 136, Potassium 4.4, Chloride 102, Carbon Dioxide 26.0, BUN 70 H, Creatinine 4.72 H, Estim Creat Clear Calc 12.02, Est GFR (MDRD) Af Amer 16 L, Est GFR (MDRD) Non-Af 13 L, BUN/Creatinine Ratio 14.8, Glucose 223 H, Calcium 8.7, Phosphorus 3.7, Albumin 2.0 L 06/13/22 06:45: WBC 12.5 H, RBC 3.39 L, Hgb 10.5 L, Hct 33.3 L, MCV 98.2 H, MCH 31.0, MCHC 31.5 L, RDW Std Deviation 53.8 H, RDW Coeff of Kecia 15.0 H, Plt Count 228, MPV 11.7, Immature Gran % (Auto) 0.700, Neut % (Auto) 83.9 H, Lymph % (Auto) 7.7 L, [place] % (Auto) 7.0, Eos % (Auto) 0.5, Baso % (Auto) 0.2, Absolute Neuts (auto) 10.5 H, Absolute Lymphs (auto) 0.97, Nucleated RBC % 0 06/13/22 06:45: PT 15.7 H, INR 1.3, APTT 36.7 H Micro: Microbiology 06/10/22 15:28 Nasal Secretion SARS-CoV-2 & FLU Antigen (Rapid) - Final Physical Exam Const alert and oriented x3 General Appearance: on BiPAP Nutritional Appearance: obese Resp Resp Narrative: BIPAP Auscultation: diminished lung sounds Cardio regular rate Rhythm: abnormal rhythm GI non-tender GI Narrative: distended Auscultation: normoactive bowel sounds Palpation: soft Extremity General Extremity: AV fistula and edema bilateral Assessment & Plan Assessment/Plan (1) Vynvv-rx-smupizn renal failure: PLAN: dialysis #2 today. Likely ESRD. Arrange outpt dialysis. Fluid removal today as tolerated. Next dialysis anticipated for tomorrow (2) CKD stage 4 due to type 2 diabetes mellitus: PLAN: baseline creatinine 3.99 with nephrotic proteinuria. Suspect has reached end stage. (3) Acute and chronic respiratory failure ([id number]): PLAN: on BIPAP (4) Heart failure with preserved ejection fraction: QUALIFIERS: Heart failure chronicity: acute Qualified Code(s): I50.31 - Acute diastolic (congestive) heart failure (5) New onset atrial flutter: PLAN: rate controlled (6) OLVIN (obstructive sleep apnea): PLAN: on BIPAP (7) Dyspnea: QUALIFIERS: Dyspnea type: unspecified Qualified Code(s): R06.00 - Dyspnea, unspecified (8) HTN (hypertension): QUALIFIERS: Hypertension type: essential hypertension Qualified Code(s): I10 - Essential (primary) hypertension (9) Diabetes mellitus: QUALIFIERS: Diabetes mellitus type: type 2 Diabetes mellitus complication status: with other specified complication Diabetes mellitus detention insulin use: with longitudinal float operator use Qualified Code(s): E11.69 - Type 2 diabetes mellitus with other specified complication; Z79.4 - watermaster (current) use of insulin (10) Liver transplanted: PLAN: 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
--- NOTE | 2022-06-13 11:47 | CASEMGMT ---
Dr Lomax said patient did not know he was going to the longterm side of [facility]. SW went into patient's room. SW introduced self and patient said he doesn't remember talking to SW. SW explained that therapy is recommending patient go to the rehab side of [facility] before he return to his assisted living. Patient verbalized understanding and agrees with the plan. Plan: d/c to [facility] under skilled level of care pending dialysis set up, patient being medically ready and insurance approval. Arlette Moore PALLIATIVE CARE PHYSICIANGurmeet MELENDREZ
--- NOTE | 2022-06-13 11:56 | CASEMGMT ---
EAG[facility]GRETE HD Follow-up: Hep B results and first HD run notes with HD orders uploaded to pt's referral in the [employer] portal. Noted schedule letter available on the portal for M/W/F at 0645 at the [facility] site. Call placed to [facility] coordinator Rachna re: on-site HD at [facility]. Rachna to check with her business practices supervisor and update this EAGLE NEGRETE related to HD site set-up. Héctor Zuñiga RN CM
--- NOTE | 2022-06-13 12:24 | CASEMGMT ---
EAGLE NEGRETE HD Follow-up: Call received from Marly at [facility], confirmed that HD has been set up to be performed at [facility] with a start date of 06/17/22. Héctor Zuñiga RN CM
[2022-06-13 12:25] LABS: Bedside Glucose 280 mg/dL (74-106)
--- NOTE | 2022-06-13 12:45 | PN.CARD_ITS ---
Documented by User: Manisha BARRAGAN, LAUREL 06/13/22 15:25 Subjective Subjective transferred to PCU. Tolerated dialysis yesterday. Dialysis today with AVF. Still SOB, edematous. Objective Data Vital Signs: Vital Signs Temp Pulse Resp BP Pulse Ox O2 Del Method O2 Flow Rate 97.8 F 78 17 151/79 H 93 Nasal Cannula 5 06/13/22 09:00 06/13/22 09:08 06/13/22 09:00 06/13/22 09:00 06/13/22 09:00 06/13/22 09:00 06/13/22 09:00 FiO2 35 06/13/22 08:30 Oxygen Flow Rate (L/min) 5 Oxygen Delivery Method Nasal Cannula Weight: 256 lb 13.416 oz Body Mass Index (BMI) 40.5 Intake & Output: Intake and Output for Last 24 Hours 06/11/22 06/12/22 06/13/22 23:59 23:59 23:59 Intake Total 1563.91 / 1568.91 515.17 / 515.17 250.0 / 250.0 Output Total 240 / 240 1000 / 1000 0 / 0 Balance 1323.91 / 1328.91 -484.83 / -484.83 250.0 / 250.0 Lab / Micro Data Result Diagrams: 06/13/22 06:45 06/13/22 06:45 Labs: Laboratory Results - last 24 hr 06/12/22 16:02: POC Glucose 305 H 06/12/22 : Hep Bs Antigen Non-Reactive 06/12/22 : Hep Bs Antibody Non-Reactive 06/13/22 06:33: POC Glucose 217 H 06/13/22 06:45: Sodium 136, Potassium 4.4, Chloride 102, Carbon Dioxide 26.0, BUN 70 H, Creatinine 4.72 H, Estim Creat Clear Calc 12.02, Est GFR (MDRD) Af Amer 16 L, Est GFR (MDRD) Non-Af 13 L, BUN/Creatinine Ratio 14.8, Glucose 223 H, Calcium 8.7, Phosphorus 3.7, Albumin 2.0 L 06/13/22 06:45: WBC 12.5 H, RBC 3.39 L, Hgb 10.5 L, Hct 33.3 L, MCV 98.2 H, MCH 31.0, MCHC 31.5 L, RDW Std Deviation 53.8 H, RDW Coeff of Kecia 15.0 H, Plt Count 228, MPV 11.7, Immature Gran % (Auto) 0.700, Neut % (Auto) 83.9 H, Lymph % (Auto) 7.7 L, [place] % (Auto) 7.0, Eos % (Auto) 0.5, Baso % (Auto) 0.2, Absolute Neuts (auto) 10.5 H, Absolute Lymphs (auto) 0.97, Nucleated RBC % 0 06/13/22 06:45: PT 15.7 H, INR 1.3, APTT 36.7 H 06/13/22 12:00: POC Glucose 280 H Cardiology Labs/Tests 06/13/22 06:45: Sodium 136, Potassium 4.4, Chloride 102, Carbon Dioxide 26.0, BUN 70 H, Creatinine 4.72 H, Est GFR (MDRD) Af Amer 16 L, Est GFR (MDRD) Non-Af 13 L, BUN/Creatinine Ratio 14.8, Glucose 223 H, Calcium 8.7, Phosphorus 3.7 06/13/22 06:45: WBC 12.5 H, RBC 3.39 L, Hgb 10.5 L, Hct 33.3 L, MCV 98.2 H, MCH 31.0, MCHC 31.5 L, Plt Count 228, MPV 11.7, Immature Gran % (Auto) 0.700, Neut % (Auto) 83.9 H, Lymph % (Auto) 7.7 L, [place] % (Auto) 7.0, Eos % (Auto) 0.5, Baso % (Auto) 0.2, Absolute Neuts (auto) 10.5 H, Nucleated RBC % 0 06/13/22 06:45: PT 15.7 H, INR 1.3, APTT 36.7 H Rhythm: SR Physical Exam Const General Appearance: cooperative, comfortable and well developed Orientation / Consciousness: awake, oriented to person, oriented to place and oriented to time HEENT normocephalic, head/scalp atraumatic and hearing grossly normal bilaterally Head and Scalp: normal to inspection, normocephalic and atraumatic Eyes General Eye: normal appearance of both eyes Neck full ROM and supple General: normal visual inspection Resp normal respiratory effort Effort and Inspection: able to speak in complete sentences and labored Auscultation: diminished lung sounds bilateral Cardio Rhythm: abnormal rhythm irregularly irregular GI Auscultation: normoactive bowel sounds Extremity Extremity Narrative: edema up to knees Skin Wounds: wounds noted Neuro oriented x3, CN's II-XII intact bilaterally, moves all extremities and no focal motor deficits Psych mental status grossly normal Appearance: grossly normal Attitude: calm Activity / Motor Behavior: appropriate eye contact Assessment & Plan Assessment/Plan (1) New onset a-fib: PLAN: Patient presents with new onset atrial fibrillation. * will continue with rate control of metoprolol and cardizem . * He was started on coumadin. He can continue with heparin until he is is therapeutic. * Echo demonstrated an EF of 55% (2) Elevated troponin: PLAN: * Suspect his elevated troponin is likely secondary to demand ischemia. Would not recommend any major changes. PLAN: Plan Independently evaluated this patient and reviewed all his current cardiac assessment Patient has mild elevation of cardiac biomarker high sensitive troponin s econdary to demand myocardial ischemia and type II VA Echocardiographic evaluation LV function is preserved with a normal ejection fraction We will continue rate control using Cardizem as well as beta-gian metoprolol. As well as anticoagulation with warfarin with a target INR 2?3 We will continue to monitor and follow-up clinically during this admission. Documented by User: Dr. Pool Shannon MD 06/13/22 17:49 Lab / Micro Data Result Diagrams: 06/13/22 06:45 06/13/22 06:45 Assessment & Plan Assessment/Plan (1) New onset a-fib: (2) Elevated troponin: PLAN: Plan Independently evaluated this patient and reviewed all his current cardiac evaluation Including the EKG cardiac monitors imaging studies as well as a current cardiac medication Patient has mild elevation of cardiac biomarker high sensitive troponin secondary to demand myocardial ischemia and type II VA Echocardiographic evaluation LV function is preserved with a normal ejection fraction We will continue rate control using Cardizem as well as beta-gian metoprolol. As well as anticoagulation with warfarin with a target INR 2?3 We will continue to monitor and follow-up clinically during this admission.
[2022-06-13 15:26] LABS: Partial Thromboplast Time 48.6 Seconds (24.1-36.2)
--- NOTE | 2022-06-13 17:50 | DIALYSIS ---
Hemodialysis x3 hours ended 1 hour early at 1700, ran on a 3K bath, 2nd tx, tolerated well however due to discomfort in the bed he was adamant that he sit at side of bed, unable to persuade patient to stay on tx any longer, explained importance of fluid removal and breathing, unable to reposition patient due to his size and high risk of infiltrating his still small AVF, UF 2100mL, CritLine profile A/B, accessed via LFA AVF using 17G needles, max BFR 250, AVF feels small however no difficulty accessing, patient does move access arm frequently while sleeping and somewhat while awake as well, monitored access arm very closely entire tx, needles pulled post tx and stasis achieved without issue, small amount of bleeding at first, on heparin drip, 3rd tx planned for tomorrow
[2022-06-13 18:56] LABS: Bedside Glucose 333 mg/dL (74-106)
--- NOTE | 2022-06-13 22:50 | CPS ---
Pt declined bipap at this time
[2022-06-13 23:41] LABS: Partial Thromboplast Time 49.7 Seconds (24.1-36.2)
[2022-06-14] VITALS (19 sets, daily range): BP systolic 101–136; BP diastolic 55–82; PULSE 70–86; RESP 12–20; TEMP 35.8–36.6; O2SAT 92–100
[2022-06-14] MEDS: HEPARIN/D5w 25,000 UNITS 25,000 UNITS/250 ML IV.SOLN. 17 UNITS CONT INF (03:01)
[2022-06-14 05:12] LABS: Absolute Lymphocyte Count 1.02 X10^3/uL (0.83-4.51); Absolute Neutrophil Count 9.3 X10^3/uL (2.0-7.7); Basophil# 0.03 X10^3/uL; Basophil% 0.3 % (0-1); Eosinophil# 0.06 X10^3/uL; Eosinophils% 0.5 % (0-5); Hematocrit 34.5 % (40-54); Lymphocyte # 1.02 X10^3/ul (0.83-4.51); Lymphocyte % 8.9 % (19-41); Mean Corp Hgb Conc 31.9 g/dL (32-36); Mean Corpuscular Hgb 31.5 pg (27.0-32.0); Mean Corpuscular Volume 98.9 fL (80-94); Mean Platelet Vol. 11.5 fl (6.2-12.0); Monocyte# 0.93 X10^3/uL; Monocyte% 8.1 % (0-10); NRBC Flagged by Analyzer 0 % (0-5); Neutrophil # 9.33 X10^3/uL (2.7-7.7); Neutrophil % 81.5 % (47-70); Platelet Count 226 K/mm3 (150-450); RBC Distribution Width CV 14.9 % (11.6-14.6); RBC Distribution Width SD 54.4 fl (35.1-43.9); Red Blood Count 3.49 M/mm3 (4.6-6.2); White Blood Count 11.5 K/mm3 (4.4-11.0)
[2022-06-14 05:22] LABS: Partial Thromboplast Time 46.7 Seconds (24.1-36.2)
[2022-06-14 05:31] LABS: BUN 69 mg/dL (7-18); Calcium,Total 8.9 mg/dL (8.5-10.1); Chloride 100 mmol/L (98-107); Creatinine, Serum 4.61 mg/dL (0.70-1.30); EST Glomerular Filtration Rate 13 mL/min (>60); Est Glom Filt Rate - Afr Amer 16 mL/min (>60); Glucose 226 mg/dL (74-106); Phosphorus 4.2 mg/dL (2.5-4.9); Sodium Level 135 mmol/L (136-145)
--- NOTE | 2022-06-14 05:34 | CPS ---
Pt wanted off bipap just before 230
[2022-06-14 05:43] LABS: International Normalized Ratio 1.2; Prothrombin Time (Protime)PT. 15.3 SECONDS (11.7-14.9)
[2022-06-14] MEDS: Levothyroxine 75 MCG Tablet PO (05:55)
[2022-06-14] MEDS: Glucerna Shake 120 ML LIQUID PO ×3 (05:55→20:38)
[2022-06-14] MEDS: Insulin Lispro 100 UNIT/ML INSULN.PEN SC ×3 (06:00→17:45)
[2022-06-14] MEDS: 0.9% Saline Lock 10 ML Syringe IV ×2 (06:10→09:04)
[2022-06-14] MEDS: Heparin Injection (Vial) 5,000 UNIT/ML VIAL IV ×2 (06:10→17:35)
[2022-06-14 06:35] LABS: Bedside Glucose 198 mg/dL (74-106)
[2022-06-14] MEDS: Aspirin E.C. 81 MG Tablet PO (08:32)
[2022-06-14] MEDS: Allopurinol 100 MG Tablet PO (08:32)
[2022-06-14] MEDS: Tamsulosin HCl 0.4 MG Capsule PO ×2 (08:33→17:37)
[2022-06-14] MEDS: predniSONE 20 MG Tablet PO (08:34)
[2022-06-14] MEDS: Furosemide 40 MG/4 ML Vial IV (09:04)
[2022-06-14] MEDS: Calcitriol 0.25 MCG Capsule PO (09:04)
[2022-06-14] MEDS: Metoprolol Tartrate 50 MG Tablet PO ×2 (09:04→20:38)
[2022-06-14] MEDS: Fluticasone 0.05% 1 SPRAY NASAL.SRY 2 SPRAY NASAL (09:05)
[2022-06-14] MEDS: Tacrolimus 0.5 MG Capsule PO ×2 (09:05→20:38)
[2022-06-14] MEDS: dilTIAZem CD 120 MG Capsule PO (09:06)
[2022-06-14] MEDS: Insulin Glargine-YFGN 100 UNIT/ML Pen 28 UNIT SC (09:06)
--- NOTE | 2022-06-14 09:55 | PN.RENAL_ITS ---
Subjective Subjective Dialyzed last night with 2 L fluid removal. Dialysis today. Patient with anxiety from shortness of breath yesterday so terminated treatment early. Objective Data Objective Data Vital Signs: Vital Signs Temp Pulse Resp BP Pulse Ox O2 Del Method O2 Flow Rate 97.9 F 78 14 129/82 H 93 Nasal Cannula 5 06/14/22 08:12 06/14/22 09:04 06/14/22 08:12 06/14/22 08:12 06/14/22 09:18 06/14/22 09:18 06/14/22 09:18 FiO2 35 06/14/22 05:52 Oxygen Flow Rate (L/min) 5 Oxygen Delivery Method Nasal Cannula Weight: 116.3 kg Body Mass Index (BMI) 40.5 Intake & Output: Intake and Output for Last 24 Hours 06/12/22 06/13/22 06/14/22 23:59 23:59 23:59 Intake Total 515.17 / 515.17 879.93 / 999.93 282.49 / 282.49 Output Total 1000 / 1000 2100 / 2475 2775 / 2775 Balance -484.83 / -484.83 -1220.07 / -1475.07 -2492.51 / -2492.51 Lab / Micro Data Result Diagrams: 06/14/22 04:50 06/14/22 04:50 Labs: Laboratory Results - last 24 hr 06/13/22 12:00: POC Glucose 280 H 06/13/22 15:03: APTT 48.6 H 06/13/22 18:29: POC Glucose 333 H 06/13/22 23:00: APTT 49.7 H 06/14/22 04:50: PT 15.3 H, INR 1.2 06/14/22 04:50: Sodium 135 L, Potassium 5.0, Chloride 100, Carbon Dioxide 30.0, BUN 69 H, Creatinine 4.61 H, Estim Creat Clear Calc 12.30, Est GFR (MDRD) Af Amer 16 L, Est GFR (MDRD) Non-Af 13 L, BUN/Creatinine Ratio 15.0, Glucose 226 H, Calcium 8.9, Phosphorus 4.2, Albumin 2.0 L 06/14/22 04:50: WBC 11.5 H, RBC 3.49 L, Hgb 11.0 L, Hct 34.5 L, MCV 98.9 H, MCH 31.5, MCHC 31.9 L, RDW Std Deviation 54.4 H, RDW Coeff of Kecia 14.9 H, Plt Count 226, MPV 11.5, Immature Gran % (Auto) 0.700, Neut % (Auto) 81.5 H, Lymph % (Auto) 8.9 L, [place] % (Auto) 8.1, Eos % (Auto) 0.5, Baso % (Auto) 0.3, Absolute Neuts (auto) 9.3 H, Absolute Lymphs (auto) 1.02, Nucleated RBC % 0 06/14/22 04:50: APTT 46.7 H 06/14/22 05:59: POC Glucose 198 H Micro: Microbiology 06/10/22 15:28 Nasal Secretion SARS-CoV-2 & FLU Antigen (Rapid) - Final Physical Exam Const alert and oriented x3 Resp Resp Narrative: Using accessory muscles breathing little easier today, wearing oxygen Cardio Rhythm: abnormal rhythm irregularly irregular Extremity General Extremity: AV fistula and edema bilateral lower extremity Neuro Sensorium / Orientation: awake and alert Psych cooperative
--- NOTE | 2022-06-14 11:03 | PCM.PN.HOSP ---
Subjective Subjective Feels much better than when he came in, still requires BiPAP at night but maintaining his oxygen sats on 4 to 5 L nasal cannula during the day he did have about 2 L of fluid removed yesterday with dialysis and will undergo dialysis again today Objective Data Objective Data Vital Signs: Vital Signs Temp Pulse Resp BP Pulse Ox O2 Del Method O2 Flow Rate 97.9 F 78 14 129/82 H 93 Nasal Cannula 5 06/14/22 08:12 06/14/22 09:04 06/14/22 08:12 06/14/22 08:12 06/14/22 09:18 06/14/22 09:18 06/14/22 09:18 FiO2 35 06/14/22 05:52 Oxygen Flow Rate (L/min) 5 Oxygen Delivery Method Nasal Cannula Weight: 256 lb 6.362 oz Body Mass Index (BMI) 40.5 Intake & Output: Intake and Output for Last 24 Hours 06/13/22 06/14/22 06/15/22 03:59 03:59 03:59 Intake Total 495.17 / 495.17 1060.00 / 1060.00 102.42 / 102.42 Output Total 1000 / 1000 2475 / 2475 2400 / 2400 Balance -504.83 / -504.83 -1415.00 / -1415.00 -2297.58 / -2297.58 Lab / Micro Data Result Diagrams: 06/14/22 04:50 06/14/22 04:50 Labs: Laboratory Results - last 24 hr 06/13/22 12:00: POC Glucose 280 H 06/13/22 15:03: APTT 48.6 H 06/13/22 18:29: POC Glucose 333 H 06/13/22 23:00: APTT 49.7 H 06/14/22 04:50: PT 15.3 H, INR 1.2 06/14/22 04:50: Sodium 135 L, Potassium 5.0, Chloride 100, Carbon Dioxide 30.0, BUN 69 H, Creatinine 4.61 H, Estim Creat Clear Calc 12.30, Est GFR (MDRD) Af Amer 16 L, Est GFR (MDRD) Non-Af 13 L, BUN/Creatinine Ratio 15.0, Glucose 226 H, Calcium 8.9, Phosphorus 4.2, Albumin 2.0 L 06/14/22 04:50: WBC 11.5 H, RBC 3.49 L, Hgb 11.0 L, Hct 34.5 L, MCV 98.9 H, MCH 31.5, MCHC 31.9 L, RDW Std Deviation 54.4 H, RDW Coeff of Kecia 14.9 H, Plt Count 226, MPV 11.5, Immature Gran % (Auto) 0.700, Neut % (Auto) 81.5 H, Lymph % (Auto) 8.9 L, [place] % (Auto) 8.1, Eos % (Auto) 0.5, Baso % (Auto) 0.3, Absolute Neuts (auto) 9.3 H, Absolute Lymphs (auto) 1.02, Nucleated RBC % 0 06/14/22 04:50: APTT 46.7 H 06/14/22 05:59: POC Glucose 198 H Micro: Microbiology 06/10/22 15:28 Nasal Secretion SARS-CoV-2 & FLU Antigen (Rapid) - Final Physical Exam Narrative General: Alert, Oriented x3, Cooperative, No apparent distress HEENT: Atraumatic, PERRLA, EOMI, Normocephalic Oral: Moist Mucosa Neck: Supple, No JVD Lungs: Diminished, Normal air movement, No rhonchi, No wheeze, No rales Cardiovascular: Regular rate, Regular Rhythm, Normal S1, Normal S2, No murmurs Abdomen: Soft, Non Tender, Non-Distended, No Hepato-splenomegaly Extremities: Edema, Capillary Refill Less than 3 Seconds Skin: Chronic abdominal wall breakdown dressing intact, lower extremities with venous stasis dermatitis Musculoskeletal: No Tenderness to Palpation of Joints or Extremities Neurological: Cranial nerves II-XII grossly intact, Motor Exam 5/5 strength throughout, Sensory exam intact to light touch and pain Psych/Mental Status: Normal Affect, Appropriate Assessment & Plan Assessment/Plan (1) New onset atrial flutter: (2) Heart failure with preserved ejection fraction: QUALIFIERS: Heart failure chronicity: acute Qualified Code(s): I50.31 - Acute diastolic (congestive) heart failure (3) Chronic kidney disease (CKD): QUALIFIERS: Chronic kidney disease stage: stage 5, not on chronic dialysis Qualified Code(s): N18.5 - Chronic kidney disease, stage 5 (4) Skin ulcer of abdominal wall with fat layer exposed: (5) Liver transplanted: (6) Dermatitis of lower extremity: (7) Encephalopathy: PLAN: Resolved PLAN: Plan 1. New onset atrial flutter/acute on chronic diastolic dysfunction/HTN/HLD ? His [id number] score is 6 so he was started on a heparin drip and being transitioned to Coumadin secondary to his renal failure ? Prescient cardiology's assistance, his heart rate is back under control and he is currently on oral medications including metoprolol and Cardizem ? He had an echo with an EF of 55% with a pulmonary artery systolic pressure of 30 mmHg ? We will continue with Lasix as well as dialysis to try to help control his fluid volume 2. DM2/CKD 5 ? Appreciate nephrology's assistance, he did have a fistula placed in February or March which is currently being used now for dialysis ? He will undergo dialysis again today and then will likely be transition to Thursday schedule as an outpatient ? We will continue to monitor his blood sugars and adjust his insulin as necessary ? Accu-Cheks AC at bedtime 3. Hypothyroidism ? Stable ? Continue with Synthroid 4. GERD ? Stable ? Continue with her PPI 5. Status post liver transplant due to alcoholism ? Continue with his antirejection medications as well as his Bactrim ? Stable 6. 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 He has a chronic abdominal wall wound which appears to be due to him picking at it we will continue with wound care at this time DVT: Heparin drip and Coumadin Charges/Coding Visit Charges Inpatient E&M: 93215 Subs Hosp L2
[2022-06-14 11:20] LABS: Partial Thromboplast Time 60.2 Seconds (24.1-36.2)
[2022-06-14 16:06] LABS: Bedside Glucose 242 mg/dL (74-106)
[2022-06-14 17:07] LABS: Partial Thromboplast Time 50.1 Seconds (24.1-36.2)
[2022-06-14] MEDS: HEPARIN/D5w 25,000 UNITS 25,000 UNITS/250 ML IV.SOLN. 19 UNITS CONT INF (17:33)
[2022-06-14 18:10] LABS: Bedside Glucose 185 mg/dL (74-106)
--- NOTE | 2022-06-14 18:37 | DIALYSIS ---
Hemodialysis complete. 3 hour run, 2k bath. Net fluid removed = 3000 ml. Patient tolerated HD tx well Left forearm AVF: site benign, thrill and bruit present. Needle site pressure held 10 min. Hemostasis achieved AVF is very narrow. Arterial and venous pressures elevated throughout HD tx. Dr. Lomax notified Report given to primary RN, Forrest Lemons.
[2022-06-14] MEDS: hydrOXYzine PAM 25 MG Capsule PO (22:04)
[2022-06-14] MEDS: Ipratropium/Albuterol Sulfate 3 ML AMPUL.NEB INHALATION (22:20)
[2022-06-14] MEDS: LORazepam 0.5 MG Tablet PO (23:03)
--- NOTE | 2022-06-14 23:34 | CPS ---
Gave pt PRN duoneb tx at 22:20. Pt stated that he felt as if he couldn't catch his breath. Put pt on bipap after the treatment. Pt stated that he still felt like he couldn't catch his breath. Increased PAP pressures for pt comfort, however pt stated that he still felt short of breath. Put pt on initial bipap settings of 14/8 R12 and 30%. Sat's maintained 97-98% and RR 24 on the bipap. RN aware.
[2022-06-15] VITALS (7 sets, daily range): BP systolic 135–142; BP diastolic 65–94; PULSE 76–89; RESP 12–20; TEMP 36.6–36.7; O2SAT 94–96
[2022-06-15 01:24] LABS: Partial Thromboplast Time 56.7 Seconds (24.1-36.2)
[2022-06-15] MEDS: Insulin Lispro 100 UNIT/ML INSULN.PEN SC ×2 (06:43→11:28)
[2022-06-15] MEDS: HEPARIN/D5w 25,000 UNITS 25,000 UNITS/250 ML IV.SOLN. 19 UNITS CONT INF (06:43)
[2022-06-15] MEDS: Levothyroxine 75 MCG Tablet PO (06:43)
[2022-06-15 07:11] LABS: Bedside Glucose 199 mg/dL (74-106)
[2022-06-15 07:32] LABS: International Normalized Ratio 1.4; Prothrombin Time (Protime)PT. 16.7 SECONDS (11.7-14.9)
[2022-06-15 07:33] LABS: Anion Gap 8 (5-15); BUN 60 mg/dL (7-18); BUN/Creat Ratio 13.2 RATIO (10-20); Calcium,Total 8.8 mg/dL (8.5-10.1); Chloride 100 mmol/L (98-107); Creatinine, Serum 4.54 mg/dL (0.70-1.30); EST Glomerular Filtration Rate 14 mL/min (>60); Est Glom Filt Rate - Afr Amer 16 mL/min (>60); Estimated Creatinine Clearance 12.49 ml/min; Glucose 195 mg/dL (74-106); Potassium 4.1 mmol/L (3.5-5.1); Sodium Level 133 mmol/L (136-145)
[2022-06-15 07:46] LABS: Partial Thromboplast Time 74.2 Seconds (24.1-36.2)
[2022-06-15] MEDS: Fluticasone 0.05% 1 SPRAY NASAL.SRY 2 SPRAY NASAL (08:30)
[2022-06-15] MEDS: Calcitriol 0.25 MCG Capsule PO (08:31)
[2022-06-15] MEDS: Furosemide 40 MG/4 ML Vial IV (08:31)
[2022-06-15] MEDS: predniSONE 20 MG Tablet PO (08:31)
[2022-06-15] MEDS: Metoprolol Tartrate 50 MG Tablet PO (08:31)
[2022-06-15] MEDS: Allopurinol 100 MG Tablet PO (08:31)
[2022-06-15] MEDS: Tamsulosin HCl 0.4 MG Capsule PO (08:31)
[2022-06-15] MEDS: dilTIAZem CD 120 MG Capsule PO (08:31)
[2022-06-15] MEDS: Aspirin E.C. 81 MG Tablet PO (08:31)
[2022-06-15] MEDS: Tacrolimus 0.5 MG Capsule PO (08:31)
--- NOTE | 2022-06-15 08:57 | PCM.PN.BLA ---
Progress Note dialysis yesterday with net fluid removal 3L, not 8L as charted in I/Os. Will need corrected. High arterial and venous pressures. Will need fistulogram of access.
--- NOTE | 2022-06-15 10:29 | PCM.TXEXTCAR ---
Diet Diet Order/Speech Therapy: 06/11/22 12:30 Diet: Renal - ConsCHO - Segun Cont Is pt able to select menu?: Yes How many daily calories?: 1800 calorie Routine Orders/Code Status Routine Lab Work: CBC, BMP and INR Code Status: Full Code Wound(s) left inner ankle area: Wound Type: stasis dermatitis Dressing Change: Dry Sterile Dressing abdomen: Wound Type: cluster of open areas (pt states he picks) Dressing Change: Adaptic Therapies Physical Therapy: Eval and Treat Occupational Therapy: Eval and Treat Problem/Diagnosis (1) New onset atrial flutter: Status: Acute Code(s): I48.92 - Unspecified atrial flutter (2) Heart failure with preserved ejection fraction: Status: Acute Code(s): I50.30 - Unspecified diastolic (congestive) heart failure (3) Chronic kidney disease (CKD): Status: Chronic Code(s): N18.9 - Chronic kidney disease, unspecified (4) Skin ulcer of abdominal wall with fat layer exposed: Status: Acute Code(s): L98.492 - Non-pressure chronic ulcer of skin of other sites with fat layer exposed (5) Liver transplanted: Status: Chronic Code(s): Z94.4 - Liver transplant status Comment: in 2006 at [facility]; on prograft 2g bid (6) Dermatitis of lower extremity: Status: Acute Code(s): L30.9 - Dermatitis, unspecified (7) Encephalopathy: Status: Acute Code(s): G93.40 - Encephalopathy, unspecified Plan: Resolved Plan 1. New onset atrial flutter/acute on chronic diastolic dysfunction/HTN/HLD ? His [id number] score is 6 so he was started on a heparin drip and being transitioned to Coumadin secondary to his renal failure ? Prescient cardiology's assistance, his heart rate is back under control and he is currently on oral medications including metoprolol and Cardizem ? He had an echo with an EF of 55% with a pulmonary artery systolic pressure of 30 mmHg ? We will continue with Lasix as well as dialysis to try to help control his fluid volume 2. DM2/CKD 5 ? Appreciate nephrology's assistance, he did have a fistula placed in February or March which is currently being used now for dialysis ? He will undergo dialysis again today and then will likely be transition to Thursday schedule as an outpatient ? We will continue to monitor his blood sugars and adjust his insulin as necessary ? Accu-Cheks AC at bedtime 3. Hypothyroidism ? Stable ? Continue with Synthroid 4. GERD ? Stable ? Continue with her PPI 5. Status post liver transplant due to alcoholism ? Continue with his antirejection medications as well as his Bactrim ? Stable 6. 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 He has a chronic abdominal wall wound which appears to be due to him picking at it we will continue with wound care at this time DVT: Heparin drip and Coumadin Allergies/Procedures Done in Hospital Allergies cortisone [Cortisone] Allergy (Verified 06/10/22 15:02) Angioedema Penicillins Allergy (Verified 06/10/22 15:02) Unknown CHILDHOOD REACTION Procedures: 2-D Echocardiogram and Dialysis Type of Care/Length of Stay Estimated LOS: Convalescent Care Less Than 30 days Type of Care Needed: Skilled Rehab Potential: Good Prognosis: Good Additional Orders/Day of Discharge Day of Discharge: 06/15/22 Dietary and Speech Recommendations Dietitian Recommendations/Changes: will adjust diet to renal, 1800 calorie controlled will discontinue Glucerna to 120mL TID due to adequate PO intake of meals. Will adjust diet pending renal labs/POC. Discharge Plan Admission Admit Date/Time: 06/10/22 17:51 Attending Provider: Bacilio Browning Primary Care Provider: Wilver Garcias Consulting Providers: Topher Villa ; Derick Salgado ; Shala Lomax Discharge Orders/Prescriptions Prescriptions: New warfarin [Jantoven] 5 mg Tablet 5 mg PO DAILY@1700 Qty: 0 0RF metoprolol tartrate 50 mg Tablet 50 mg PO BID Qty: 0 0RF diltiazem HCl 120 mg Capsule,Extended Release 24hr 120 mg PO DAILY Qty: 0 0RF Continued prednisone 20 mg tablet 20 mg PO DAILY levothyroxine 75 MCG tablet 75 mcg PO DAILY tacrolimus 1 MG capsule 0.5 mg PO BID pantoprazole 40 MG tablet 40 mg PO MOWEFR bupropion HCl 150 MG tablet sustained-release 12 hr 150 mg PO BID allopurinol 100 MG tablet 100 mg PO DAILY multivit with [id number] 1 EACH tablet 1 tablet PO DAILY ketoconazole 120 ML shampoo 1 applic TP MOWEFR sertraline 100 MG tablet 100 mg PO QHS aspirin 81 MG tablet,delayed release (DR/EC) 81 mg PO DAILY@0800 ergocalciferol (vitamin D2) 50,000 UNIT capsule 50,000 unit PO MO magnesium oxide 400 MG tablet 400 mg PO TID ipratropium-albuterol 0.5 mg-3 mg(2.5 mg base)/3 mL Solution For Nebulization 3 ml INHALATION Q6H PRN (Reason: Wheezing) zolpidem 5 mg Tablet 5 mg PO QHS PRN (Reason: Insomnia) fluticasone propionate [Flonase Allergy Relief] 50 mcg/actuation [place],Suspension 2 spray INTRANASAL DAILY sennosides [senna] 8.6 mg Tablet 8.6 mg PO PRN PRN (Reason: Constipation) loperamide [Imodium A-D] 2 mg Capsule 2 mg PO Q6H PRN (Reason: Diarrhea) miconazole nitrate 2 % Cream 1 applic TOPICAL QHS acetaminophen 500 mg Tablet 500 mg PO Q6H PRN (Reason: Pain) bisacodyl 10 mg Suppository 10 mg NM Q18H PRN (Reason: Constipation) calcium carbonate [Tums] 200 mg calcium (500 mg) Tablet,Chewable 200 mg PO Q18H PRN (Reason: Indigestion) docusate sodium [Colace] 100 mg Capsule 100 mg PO DAILY PRN (Reason: Constipation) furosemide [Lasix] 20 mg Tablet 20 mg PO DAILY insulin glargine [Lantus Solostar U-100 Insulin] 100 unit/mL (3 mL) Insulin Pen 28 unit SUBCUT DAILY Biofreeze (menthol) 4 % Gel 1 applic TOPICAL BID PRN (Reason: Pain) gabapentin 100 mg Capsule 100 mg PO TID Ozempic 0.25 mg or 0.5 mg(2 mg/1.5 mL) Pen Injector 0.75 mg SUBCUT MO Rx Instructions: for 4 doses cetirizine [Zyrtec] 10 mg Tablet 10 mg PO DAILY PRN (Reason: ALLERGIES) sulfamethoxazole-trimethoprim 800-160 mg tablet 1 tab PO MOWEFR tamsulosin 0.4 mg Capsule 0.4 mg PO BID calcitriol 0.25 mcg capsule 0.25 mcg PO DAILY Referrals / Follow Up: Wilver Garcias MD [Primary Care Provider] - Disposition Disposition (needs filled in before D/C Order can be placed): Care Home Facility (1) Heart failure with preserved ejection fraction Qualifiers: Heart failure chronicity: acute Qualified Code(s): I50.31 - Acute diastolic (congestive) heart failure (2) Chronic kidney disease (CKD) Qualifiers: Chronic kidney disease stage: stage 5, not on chronic dialysis Qualified Code(s): N18.5 - Chronic kidney disease, stage 5
[2022-06-15] MEDS: Insulin Glargine-YFGN 100 UNIT/ML Pen 28 UNIT SC (11:27)
[2022-06-15 11:50] LABS: Bedside Glucose 303 mg/dL (74-106)
[2022-06-15] MEDS: hydrOXYzine PAM 25 MG Capsule PO (12:12)
--- NOTE | 2022-06-15 12:53 | NURSING ---
Pt abdominal dressing changed. Wound cleaned, dried, and new adaptics and abd pads placed and secured. Only scant amount of old drainage on old abd pads- yellow like color.
--- NOTE | 2022-06-15 13:27 | DS.PCM_ITS ---
Providers Date of Admission: 06/10/22 Primary Care Physician: Dr. Wilver Garcias MD Consultations 06/10/22 20:08 Consult: Cardiology Routine Consulting Provider: Topher Villa Reason for Consult: aflutter w RVR EMERGENT Consult: No Notified: Yes Date Notified: 06/10/22 Time Notified: 17:57 Method of Notification: ED Physician Initiated Consult: Nephrology Routine Consulting Provider: Shala Lomax Reason for Consult: CKD V EMERGENT Consult: No Notified: Yes Date Notified: 06/11/22 Time Notified: 12:01 Method of Notification: Verbal Consult: Onc/Wound/rails developer Routine Comment: 06/12/22 10:33 Consult: Nephrology Routine Consulting Provider: Shala Lomax Reason for Consult: Worsening renal failure EMERGENT Consult: No Notified: Yes Date Notified: 06/12/22 Time Notified: 10:33 Method of Notification: Verbal Reason For Visit: AFLUTTER W RVR Diagnosis Discharge Diagnosis (1) New onset atrial flutter: Status: Acute Code(s): I48.92 - Unspecified atrial flutter (2) Heart failure with preserved ejection fraction: Status: Acute Code(s): I50.30 - Unspecified diastolic (congestive) heart failure Qualifiers: Heart failure chronicity: acute Qualified Code(s): I50.31 - Acute diastolic (congestive) heart failure (3) Chronic kidney disease (CKD): Status: Chronic Code(s): N18.9 - Chronic kidney disease, unspecified Qualifiers: Chronic kidney disease stage: stage 5, not on chronic dialysis Qualifi ed Code(s): N18.5 - Chronic kidney disease, stage 5 (4) Skin ulcer of abdominal wall with fat layer exposed: Status: Acute Code(s): L98.492 - Non-pressure chronic ulcer of skin of other sites with fat layer exposed (5) Liver transplanted: Status: Chronic Code(s): Z94.4 - Liver transplant status (6) Dermatitis of lower extremity: Status: Acute Code(s): L30.9 - Dermatitis, unspecified (7) Encephalopathy: Status: Acute Code(s): G93.40 - Encephalopathy, unspecified Plan: Resolved Plan 1. New onset atrial flutter/acute on chronic diastolic dysfunction/HTN/HLD ? His [id number] score is 6 so he was started on a heparin drip and being pang sitioned to Coumadin secondary to his renal failure ? Prescient cardiology's assistance, his heart rate is back under control and he is currently on oral medications including metoprolol and Cardizem ? He had an echo with an EF of 55% with a pulmonary artery systolic pressure of 30 mmHg ? We will continue with Lasix as well as dialysis to try to help control his fluid volume 2. DM2/CKD 5 ? Appreciate nephrology's assistance, he did have a fistula placed in February or March which is currently being used now for dialysis ? He will undergo dialysis again today and then will likely be transition to Thursday schedule as an outpatient ? We will continue to monitor his blood sugars and adjust his insulin as necessary ? Accu-Cheks AC at bedtime 3. Hypothyroidism ? Stable ? Continue with Synthroid 4. GERD ? Stable ? Continue with her PPI 5. Status post liver transplant due to alcoholism ? Continue with his antirejection medications as well as his Bactrim ? Stable 6. 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 He has a chronic abdominal wall wound which appears to be due to him picking at it we will continue with wound care at this time DVT: Heparin drip and Coumadin Medications at Discharge Home Medications levothyroxine 75 mcg tablet 75 mcg PO DAILY thyroid 11/19/13 tacrolimus 1 mg capsule, immediate-release 0.5 mg PO BID transplant med 06/09/16 pantoprazole 40 mg tablet,delayed release 40 mg PO MOWEFR gerd 09/07/17 allopurinol 100 mg tablet 100 mg PO DAILY Gout 07/07/19 bupropion HCl 150 mg tablet,12 hr sustained-release 150 mg PO BID major depressive disorder 07/07/19 multivit with minerals-folic acid-lycopene 0.4 mg-600 mcg tablet 1 tablet PO DAILY supplement 07/07/19 aspirin 81 mg tablet,delayed release 81 mg PO DAILY@0800 heart health 08/30/20 ergocalciferol (vitamin D2) 1,250 mcg (50,000 unit) capsule 50,000 unit PO MO supplement 08/30/20 ketoconazole 2 % shampoo 1 applic TP MOWEFR dry scalp 08/30/20 magnesium oxide 400 mg PO TID supplement 08/30/20 sertraline 100 mg tablet 100 mg PO QHS depression 08/30/20 fluticasone propionate 50 mcg/actuation nasal spray,suspension (Flonase Allergy Relief) 2 spray intranasal DAILY allergies 03/11/21 ipratropium 0.5 mg-albuterol 3 mg (2.5 mg base)/3 mL nebulization soln 3 ml inhalation Q6H PRN Wheezing 03/11/21 sennosides 8.6 mg tablet (senna) 8.6 mg PO PRN PRN Constipation 03/11/21 zolpidem 5 mg tablet 5 mg PO QHS PRN Insomnia 03/11/21 acetaminophen 500 mg tablet 500 mg PO Q6H PRN Pain 02/06/22 bisacodyl 10 mg rectal suppository 10 mg AR Q18H PRN Constipation 02/06/22 calcium carbonate 200 mg calcium (500 mg) chewable tablet (Tums) 200 mg PO Q18H PRN Indigestion 02/06/22 docusate sodium 100 mg capsule (Colace) 100 mg PO DAILY PRN Constipation 02/06/22 furosemide 20 mg tablet (Lasix) 20 mg PO DAILY 02/06/22 insulin glargine 100 unit/mL (3 mL) subcutaneous pen (Lantus Solostar U-100 Insulin) 28 unit subcut DAILY 02/06/22 loperamide 2 mg capsule (Imodium A-D) 2 mg PO Q6H PRN Diarrhea 02/06/22 menthol 4 % topical gel (Biofreeze (menthol)) 1 applic topical BID PRN Pain 02/06/22 miconazole nitrate 2 % topical cream 1 applic topical QHS 02/06/22 gabapentin 100 mg capsule 100 mg PO TID 04/04/22 semaglutide 0.25 mg or 0.5 mg (2 mg/1.5 mL) subcutaneous pen injector (Ozempic) 0.75 mg subcut MO 04/04/22 prednisone 20 mg tablet 20 mg PO DAILY 04/24/22 calcitriol 0.25 mcg capsule 0.25 mcg PO DAILY KIDNEY DISEASE 06/10/22 cetirizine 10 mg tablet (Zyrtec) 10 mg PO DAILY PRN ALLERGIES 06/10/22 sulfamethoxazole 800 mg-trimethoprim 160 mg tablet 1 tab PO MOWEFR INFECTION PREVENTION 06/10/22 tamsulosin 0.4 mg capsule 0.4 mg PO BID PROSTAIT 06/10/22 diltiazem HCl 120 mg capsule,extended release 24 hr 120 mg PO DAILY #0 caps 06/15/22 metoprolol tartrate 50 mg tablet 50 mg PO BID #0 tabs 06/15/22 warfarin 5 mg tablet (Jantoven) 5 mg PO DAILY@1700 #0 tabs 06/15/22 Hospital Course Operations None Procedures 2-D Echocardiogram and Dialysis Summary of Care Provided Minutes Spent on Discharge: 40 Hospital Course: Per HPI: TEX RICHMOND, is a 76 M who presents with shortness of breath.? Cindy mcdaniels has been short of breath for months but has just progressively gotten worse.? States that his shortness of breath typically waxes and wanes but this time, however, it is persisted for days.? He presented to the emergency room and was noted to be in atrial flutter with RVR with heart rate into the 140s to 150s.? Patient denies any history of any arrhythmia.? He does have lower extremity edema which is unchanged.? He does not know if he has had any weight change recently.? Patient received 3 rounds 5 mg of IV metoprolol which helped his heart rate only for at the start creeping back up into RVR.? Dr. Villa, with cardiology, was contacted and informed the emergency room physician that he he was see the patient in consultation.? Patient denies any chest pain.? Does state that he does get palpitations that can coincide with the shortness of breath. Hospital Course: 1. New onset atrial flutter/acute on chronic diastolic dysfunction/HTN/HLD? 76-year-old male presented to the hospital with shortness of breath for the last several months and has progressively getting worse. He was found to be in new onset atrial flutter, cardiology was consulted and initially was placed on a heparin drip as well as a Cardizem drip. His [id number] score is 6 and so he was transitioned to Coumadin because of his renal function. INR today is 1.4 and this will need to be monitored at the custodial. He is rate controlled now with Cardizem and metoprolol. He did have an echo with an EF of 55% and a pulmonary artery systolic pressure of 30 mmHg. We will also continue with Lasix even though he is on dialysis. I discussed with him the plan for discharge today he expressed understanding of the risk and benefits of going to the custodial and would like to go today. 2. DM2/CKD 5?nephrology was consulted secondary to his renal function and his lack of urine output, they recommended initiating dialysis. He did have a fistula in his left upper extremity placed in March and he has been doing well with dialysis through this. We will continue with dialysis on Thursday, Thursday, Thursday on discharge. With dialysis has been able to have several liters taken off which has helped his breathing, yesterday he was needing 5 L nasal cannula currently he is on 3. He does benefit from BiPAP at night. 3. Hypothyroidism, GERD, status post liver transplant due to alcoholism, chronic abdominal wall wound, dermatitis of his lower extremities are all chronic medical conditions which complicate his care. His home medications were continued where appropriate Physical Exam Narrative General: Alert, Oriented x3, Cooperative, No apparent distress HEENT: Atraumatic, PERRLA, EOMI, Normocephalic Oral: Moist Mucosa Neck: Supple, No JVD Lungs: Diminished, Normal air movement, No rhonchi, No wheeze, No rales Cardiovascular: Regular rate, Regular Rhythm, Normal S1, Normal S2, No murmurs Abdomen: Soft, Non Tender, Non-Distended, No Hepato-splenomegaly Extremities: Edema, Capillary Refill Less than 3 Seconds Skin: Chronic abdominal wall breakdown dressing intact, lower extremities with venous stasis dermatitis Musculoskeletal: No Tenderness to Palpation of Joints or Extremities Neurological: Cranial nerves II-XII grossly intact, Motor Exam 5/5 strength throughout, Sensory exam intact to light touch and pain Psych/Mental Status: Normal Affect, Appropriate Weight / BMI Weight Weight: 254 lb 3.088 oz Body Mass Index (BMI) 40.5 ABG / Lab / Microbiology Data Result Diagrams: 06/14/22 04:50 06/15/22 06:00 Laboratory: Laboratory Results - last 24 hr 06/14/22 14:19: POC Glucose 242 H 06/14/22 16:50: APTT 50.1 H 06/14/22 17:44: POC Glucose 185 H 06/15/22 00:23: APTT 56.7 H 06/15/22 06:00: PT 16.7 H, INR 1.4 06/15/22 06:00: Sodium 133 L, Potassium 4.1, Chloride 100, Carbon Dioxide 25.0, Anion Gap 8, BUN 60 H, Creatinine 4.54 H, Estim Creat Clear Calc 12.49, Est GFR (MDRD) Af Amer 16 L, Est GFR (MDRD) Non-Af 14 L, BUN/Creatinine Ratio 13.2, Glucose 195 H, Calcium 8.8 06/15/22 06:40: APTT 74.2 H 06/15/22 06:42: POC Glucose 199 H 06/15/22 11:25: POC Glucose 303 H Microbiology: Microbiology 06/15/22 10:47 Nasal Secretion SARS-CoV-2 Antigen (Rapid) - Final 06/10/22 15:28 Nasal Secretion SARS-CoV-2 & FLU Antigen (Rapid) - Final Meaningful Use Info Meaningful Use Diagnoses (Choose all that apply): None applicable Discharge Plan Admission Admit Date/Time: 06/10/22 17:51 Attending Provider: Bacilio Browning Primary Care Provider: Wilver Garcias Consulting Providers: Topher Villa ; Derick Salgado ; Shala Lomax Discharge Orders/Prescriptions Prescriptions: New warfarin [Jantoven] 5 mg Tablet 5 mg PO DAILY@1700 Qty: 0 0RF metoprolol tartrate 50 mg Tablet 50 mg PO BID Qty: 0 0RF diltiazem HCl 120 mg Capsule,Extended Release 24hr 120 mg PO DAILY Qty: 0 0RF Continued prednisone 20 mg tablet 20 mg PO DAILY levothyroxine 75 MCG tablet 75 mcg PO DAILY tacrolimus 1 MG capsule 0.5 mg PO BID pantoprazole 40 MG tablet 40 mg PO MOWEFR bupropion HCl 150 MG tablet sustained-release 12 hr 150 mg PO BID allopurinol 100 MG tablet 100 mg PO DAILY multivit with [id number] 1 EACH tablet 1 tablet PO DAILY ketoconazole 120 ML shampoo 1 applic TP MOWEFR sertraline 100 MG tablet 100 mg PO QHS aspirin 81 MG tablet,delayed release (DR/EC) 81 mg PO DAILY@0800 ergocalciferol (vitamin D2) 50,000 UNIT capsule 50,000 unit PO MO magnesium oxide 400 MG tablet 400 mg PO TID ipratropium-albuterol 0.5 mg-3 mg(2.5 mg base)/3 mL Solution For Nebulization 3 ml INHALATION Q6H PRN (Reason: Wheezing) zolpidem 5 mg Tablet 5 mg PO QHS PRN (Reason: Insomnia) fluticasone propionate [Flonase Allergy Relief] 50 mcg/actuation Val[place],Suspension 2 spray INTRANASAL DAILY sennosides [senna] 8.6 mg Tablet 8.6 mg PO PRN PRN (Reason: Constipation) loperamide [Imodium A-D] 2 mg Capsule 2 mg PO Q6H PRN (Reason: Diarrhea) miconazole nitrate 2 % Cream 1 applic TOPICAL QHS acetaminophen 500 mg Tablet 500 mg PO Q6H PRN (Reason: Pain) bisacodyl 10 mg Suppository 10 mg AR Q18H PRN (Reason: Constipation) calcium carbonate [Tums] 200 mg calcium (500 mg) Tablet,Chewable 200 mg PO Q18H PRN (Reason: Indigestion) docusate sodium [Colace] 100 mg Capsule 100 mg PO DAILY PRN (Reason: Constipation) furosemide [Lasix] 20 mg Tablet 20 mg PO DAILY insulin glargine [Lantus Solostar U-100 Insulin] 100 unit/mL (3 mL) Insulin Pen 28 unit SUBCUT DAILY Biofreeze (menthol) 4 % Gel 1 applic TOPICAL BID PRN (Reason: Pain) gabapentin 100 mg Capsule 100 mg PO TID Ozempic 0.25 mg or 0.5 mg(2 mg/1.5 mL) Pen Injector 0.75 mg SUBCUT MO Rx Instructions: for 4 doses cetirizine [Zyrtec] 10 mg Tablet 10 mg PO DAILY PRN (Reason: ALLERGIES) sulfamethoxazole-trimethoprim 800-160 mg tablet 1 tab PO MOWEFR tamsulosin 0.4 mg Capsule 0.4 mg PO BID calcitriol 0.25 mcg capsule 0.25 mcg PO DAILY Referrals / Follow Up: Wilver Garcias MD [Primary Care Provider] - Disposition Disposition (needs filled in before D/C Order can be placed): Detention Facility Charges/Coding Visit Charges Inpatient E&M: 46632 Disch Hosp
--- NOTE | 2022-06-15 14:00 | NURSING ---
Report given to [facility] who will take pt to [facility]. will assume care of pt at this time
--- NOTE | 2022-06-15 14:18 | NURSING ---
Report called to nurse Davis at [facility]. will assume care of pt when he arrives
== END 2022-06-15 13:58 | DRG 280 ==
LOC: ED 18:09 → PCU 18:27 → ICU 18:36 → PCU 06-13 01:13
PROVIDERS: Internal Medicine Nephrology; Emergency Provider Emergency Medicine; PCP Internal Medicine; Visit Provider Family Medicine
DX: I48.92 Unspecified atrial flutter (principal); I21.A1 Myocardial infarction type 2; I50.31 Acute diastolic (congestive) heart failure; J96.21 Acute and chronic respiratory failure with hypoxia; G93.40 Encephalopathy, unspecified; N18.5 Chronic kidney disease, stage 5; I13.2 Hypertensive heart and chronic kidney disease with heart failure and with stage 5 chronic kidney disease, or end stage renal disease; N17.9 Acute kidney failure, unspecified; L97.809 Non-pressure chronic ulcer of other part of unspecified lower leg with unspecified severity; Z94.4 Liver transplant status; I48.91 Unspecified atrial fibrillation; E11.22 Type 2 diabetes mellitus with diabetic chronic kidney disease; K70.30 Alcoholic cirrhosis of liver without ascites; E11.620 Type 2 diabetes mellitus with diabetic dermatitis; Z79.4 Long term (current) use of insulin; E11.59 Type 2 diabetes mellitus with other circulatory complications; J44.9 Chronic obstructive pulmonary disease, unspecified; E11.622 Type 2 diabetes mellitus with other skin ulcer; L98.492 Non-pressure chronic ulcer of skin of other sites with fat layer exposed; F10.21 Alcohol dependence, in remission; I45.10 Unspecified right bundle-branch block; M10.9 Gout, unspecified; I87.2 Venous insufficiency (chronic) (peripheral); I44.30 Unspecified atrioventricular block; G47.33 Obstructive sleep apnea (adult) (pediatric); K21.9 Gastro-esophageal reflux disease without esophagitis; E03.9 Hypothyroidism, unspecified; E78.5 Hyperlipidemia, unspecified; Z79.82 Long term (current) use of aspirin; K27.9 Peptic ulcer, site unspecified, unspecified as acute or chronic, without hemorrhage or perforation; Z79.52 Long term (current) use of systemic steroids; Z87.891 Personal history of nicotine dependence; Z79.899 Other long term (current) drug therapy; Z79.890 Hormone replacement therapy; I77.82 Antineutrophilic cytoplasmic antibody [ANCA] vasculitis
CPT/HCPCS: 36415; 36600; 71045; 80048; 80053; 80061; 80069; 82803; 82962; 83735; 83880; 84484; 85025; 85610; 85730; 86706; 87340; 87426; 87428; 90937; 93005; 93306; 94002; 94003; 94640; 97110; 97116; 97162; 97166; 97530; 97535; 97802; 99251; 99285; J7030; Q9957; A4216; C8929; G0257; G0463; J1940

== ENCOUNTER → 2022-06-19 | Outpatient (REF) | payer MEDICARE, MEDICAID, SELFPAY ==
[2022-06-19 17:20] LABS: International Normalized Ratio 2.1; Prothrombin Time (Protime)PT. 22.9 SECONDS (11.7-14.9)
[2022-06-19 17:30] LABS: Vitamin D,25 Hydroxy 36.1 ng/mL
[2022-06-19 17:42] LABS: Thyroid Stim Hormone (TSH) 0.83 uIU/mL (0.358-3.74)
== END ==
LOC: OLS.SW 16:05
PROVIDERS: PCP Internal Medicine; Visit Provider Family Medicine
DX: E03.9 Hypothyroidism, unspecified (principal); Z79.01 Long term (current) use of anticoagulants; N18.6 End stage renal disease
CPT/HCPCS: 36415; 82306; 84443; 85610

== ENCOUNTER → 2022-07-03 | Outpatient (REF) | payer MEDICARE, MEDICAID, SELFPAY ==
[2022-07-03 09:45] LABS: INR Fingerstick 2.8; Prothrombin Time Fingerstick 31.7 SEC (11.7-14.9)
== END ==
LOC: OLS.SW 05:00
PROVIDERS: PCP Internal Medicine; Visit Provider Family Medicine
DX: I48.91 Unspecified atrial fibrillation (principal)
CPT/HCPCS: 36416; 85610

== ENCOUNTER 2022-07-14 10:02 | Emergency (ER) | payer MEDICARE, MEDICAID, SELFPAY ==
[2022-07-14 10:04] VITALS: BP 140/102; PULSE 87; RESP 16; TEMP 36.8; O2SAT 97; BMI 40.6
[2022-07-14] MEDS: Morphine 4 MG/ML Syringe IV ×2 (10:29→13:44)
[2022-07-14] MEDS: Ondansetron 4 MG/2 ML Vial IV (10:29)
--- NOTE | 2022-07-14 10:40 | RAD_ITS ---
EXAM: XR LEFT ELBOW, 2 VIEWS CLINICAL INDICATION: Injury/Pain TECHNIQUE: Frontal and lateral views of the left elbow. This report was created using [employer] report generation technology. COMPARISON: None. FINDINGS: BONES/JOINTS: Acute fracture with mild comminution of the left olecranon process. There is no displacement of the anterior or posterior fat pads. Preservation of the joint space. No destructive or sclerotic lesions. SOFT TISSUES: Unremarkable. No soft tissue swelling or gas. No radiopaque foreign body. RAD/Elbow 2 Views IMPRESSION: Acute fracture comminution of the left olecranon process. Electronically Signed: Panfilo Valdez MD at 10:50 EST ,
--- NOTE | 2022-07-14 10:51 | EDS_ITS ---
HPI History of Present Illness Chief Complaint: Upper Extremity Injury Detail of Chief Complaint: Patient presents after fall onto left elbow Informant: patient and EMS Occured/Mechanism Mechanism/Context: Yes same level fall Comment: Patient fell onto his left elbow. He complains of pain. He is not able to move the elbow. Onset/Context/Timing Onset: Hours Context: Sudden Onset Timing: Continuous Quality of Pain: Dull and Aching Location: Left elbow Current Severity: Mild Maximum Severity: Severe Worsened by: Movement passive or active Relieved by: Nothing Associated Symptoms Associated Symptoms: Positive for Loss of Funtion; Negative for Parasthesia or Weakness Narrative Narrative: Patient is an elderly male with multiple medical problems who presents because of injury to his left elbow after fall. He is on anticoagulant. He did not hit his head. Denies loss of conscious. He denies visual, ocular auditory symptoms. He denies dental trauma. He denies facial trauma. He denies neck pain. He denies paresthesia, anesthesia medics. He states he is unable to move his arm because of pain. He localizes the pain to the left elbow. He denies chest pain, shortness of breath or difficulty breathing. He is on oxygen continuously. He does have history of COPD. He denies black or maroon- colored stool. He denies blood in his urine. Tetanus Immunization: 5-10 years Prior similar symptoms: No Recent Illness/Hospitalization: No [facility] Medical History Abdominal pain Rvasl-ce-mtistdi kidney injury Alcohol abuse Alcohol abuse following liver transplant Alcohol withdrawal Anemia Arthritis Atrial flutter Chronic dermatitis Cirrhosis Cirrhosis COPD (chronic obstructive pulmonary disease) COPD exacerbation CPAP (continuous positive airway pressure) dependence Depression Diabetes mellitus Dietary restriction Dyspnea Encephalopathy Former smoker Gastric reflux Gout History of anxiety History of CHF (congestive heart failure) History of echocardiogram History of IBS History of renal disease History of skin cancer History of ulceration HTN (hypertension) Hypertension Hypokalemia Hypoxia Infected ulcer of skin Insulin dependent diabetes mellitus Macular degeneration Nausea & vomiting Non-healing non-surgical wound snf resident On home oxygen therapy Shortness of breath on exertion Skin ulcer of abdominal wall with fat layer exposed Superficial ulcer of skin Thyroid disease Urticaria Venous insufficiency Venous insufficiency of both lower extremities Walker as ambulation aid Wears glasses Home Medications levothyroxine 75 mcg tablet 75 mcg PO DAILY thyroid 11/19/13 [History Last Taken 06/10/22] tacrolimus 1 mg capsule, immediate-release 0.5 mg PO BID transplant med 06/09/16 [History Last Taken 06/10/22] pantoprazole 40 mg tablet,delayed release 40 mg PO MOWEFR gerd 09/07/17 [History Last Taken 06/09/22] allopurinol 100 mg tablet 100 mg PO DAILY Gout 07/07/19 [History Last Taken 06/10/22] bupropion HCl 150 mg tablet,12 hr sustained-release 150 mg PO BID major depressive disorder 07/07/19 [History Last Taken 06/10/22] multivit with minerals-folic acid-lycopene 0.4 mg-600 mcg tablet 1 tablet PO DAILY supplement 07/07/19 [History Last Taken 06/10/22] aspirin 81 mg tablet,delayed release 81 mg PO DAILY@0800 heart health 08/30/20 [History Last Taken 06/10/22] ergocalciferol (vitamin D2) 1,250 mcg (50,000 unit) capsule 50,000 unit PO MO supplement 08/30/20 [History Last Taken 05/22/22] ketoconazole 2 % shampoo 1 applic TP MOWEFR dry scalp 08/30/20 [History Last Taken 06/09/22] magnesium oxide 400 mg PO TID supplement 08/30/20 [History Last Taken 06/10/22] sertraline 100 mg tablet 100 mg PO QHS depression 08/30/20 [History Last Taken 06/09/22] fluticasone propionate 50 mcg/actuation nasal spray,suspension (Flonase Allergy Relief) 2 spray intranasal DAILY allergies 03/11/21 [History Last Taken 06/10/22] ipratropium 0.5 mg-albuterol 3 mg (2.5 mg base)/3 mL nebulization soln 3 ml inhalation Q6H PRN Wheezing 03/11/21 [History Last Taken 06/10/22] sennosides 8.6 mg tablet (senna) 8.6 mg PO PRN PRN Constipation 03/11/21 [History Last Taken Unknown] zolpidem 5 mg tablet 5 mg PO QHS PRN Insomnia 03/11/21 [History Last Taken 06/09/22] acetaminophen 500 mg tablet 500 mg PO Q6H PRN Pain 02/06/22 [History Last Taken Unknown] bisacodyl 10 mg rectal suppository 10 mg NC Q18H PRN Constipation 02/06/22 [History Last Taken Unknown] calcium carbonate 200 mg calcium (500 mg) chewable tablet (Tums) 200 mg PO Q18H PRN Indigestion 02/06/22 [History Last Taken Unknown] docusate sodium 100 mg capsule (Colace) 100 mg PO DAILY PRN Constipation 02/06/22 [History Last Taken Unknown] furosemide 20 mg tablet (Lasix) 20 mg PO DAILY 02/06/22 [History Last Taken 06/10/22] insulin glargine 100 unit/mL (3 mL) subcutaneous pen (Lantus Solostar U-100 Insulin) 28 unit subcut DAILY 02/06/22 [History Last Taken 06/10/22] loperamide 2 mg capsule (Imodium A-D) 2 mg PO Q6H PRN Diarrhea 02/06/22 [History Last Taken 06/10/22] menthol 4 % topical gel (Biofreeze (menthol)) 1 applic topical BID PRN Pain 02/06/22 [History Last Taken Unknown] miconazole nitrate 2 % topical cream 1 applic topical QHS 02/06/22 [History Last Taken 06/10/22] gabapentin 100 mg capsule 100 mg PO TID 04/04/22 [History Last Taken 06/10/22] semaglutide 0.25 mg or 0.5 mg (2 mg/1.5 mL) subcutaneous pen injector (Ozempic) 0.75 mg subcut MO 04/04/22 [History Last Taken 06/09/22] prednisone 20 mg tablet 20 mg PO DAILY 04/24/22 [History Last Taken 06/10/22] calcitriol 0.25 mcg capsule 0.25 mcg PO DAILY KIDNEY DISEASE 06/10/22 [History Last Taken 06/10/22] cetirizine 10 mg tablet (Zyrtec) 10 mg PO DAILY PRN ALLERGIES 06/10/22 [History Last Taken 06/10/22] sulfamethoxazole 800 mg-trimethoprim 160 mg tablet 1 tab PO MOWEFR INFECTION PREVENTION 06/10/22 [History Last Taken 06/09/22] tamsulosin 0.4 mg capsule 0.4 mg PO BID PROSTAIT 06/10/22 [History Last Taken 06/10/22] diltiazem HCl 120 mg capsule,extended release 24 hr 120 mg PO DAILY #0 caps 06/15/22 [Rx Last Taken Unknown] metoprolol tartrate 50 mg tablet 50 mg PO BID #0 tabs 06/15/22 [Rx Last Taken Unknown] warfarin 5 mg tablet (Jantoven) 5 mg PO DAILY@1700 #0 tabs 06/15/22 [Rx Last Taken Unknown] oxycodone-acetaminophen 5 mg-325 mg tablet 1 tab PO Q6H PRN PRN pain 5 days #20 TABLETS 07/14/22 [Rx Last Taken Unknown] Allergy/AdvReac Type Severity Reaction Status Date / Time cortisone [Cortisone] Allergy Angioedema Verified 07/14/22 10:20 Penicillins Allergy Unknown Verified 07/14/22 10:20 Surgical History History of esophagogastroduodenoscopy (EGD) History of excision of pilonidal cyst History of knee surgery History of parathyroid surgery History of tonsillectomy Hx of liver transplant Hx of thumb surgery Liver transplanted Social History (Updated 07/14/22 @ 11:[address] Jarek Osborne MD) household members: none housing: [facility] Smoking Status: Former smoker alcohol intake: former substance use type: does not use ROS ROS ED Constitutional Constitutional ED: Denies chills, fever(s), subjective, sweats or weight loss Eyes Eyes: Denies blurry vision, change in vision or diplopia ENT ENT ED: Denies ear pain, rhinorrhea or sore throat Cardiovascular Cardiovascular: Denies chest pain or palpitations Respiratory/Chest Respiratory/Chest: Denies cough, dyspnea or dyspnea on exertion Gastrointestinal Gastrointestinal: Denies abdominal pain, melena, nausea or vomiting Genitourinary Genitourinary ED: Denies dysuria or hematuria Musculoskeletal Musculoskeletal: Reports other Details: Left elbow pain and swelling ; Denies back pain, myalgias or neck pain Integumentary Denies abscess, Abrasions or rash Neurologic Neurologic: Denies headache(s), paresthesias or weakness Hematologic/Lymphatic Hematologic/Lymphatic: Reports easy bruising; Denies easy bleeding EXAM Physical Exam Const Vital Signs: 07/14/22 10:04 Temperature 98.3 F Temperature Source Temporal Pulse Rate 87 Respiratory Rate 16 Blood Pressure 140/102 H Blood Pressure Mean 114 Pulse Ox 97 Oxygen Delivery Method Nasal Cannula Oxygen Flow Rate (L/min) 2 Positive well nourished, well developed and obese Constitutional Narrative: Patient is in minimal respiratory distress. States this is baseline for him. He is on his baseline oxygen of 2 L saturating 97%. General Appearance ED: well developed; Negative for NAD Nutritional Appearance: obese HEENT Reports moist mucous membranes HEENT Narrative: There is no clinical signs of basilar skull fracture. There is no septal deviation hematoma. There is no dental trauma. There is no tenderness of the right or left TMJ. normocephalic and atraumatic; Negative for trauma or tenderness Eyes PERRL and EOMs intact bilaterally Eyes Narrative: There is no subconjunctival hemorrhage. Neck full ROM and supple Neck Narrative: There is no pain posteriorly along the cervical spinous process. Chest Wall palpation of chest normal Resp No normal respiratory effort and No clear to auscultation bilaterally Resp Narrative: Patient has end inspiratory rales bilaterally. Auscultation: diminished lung sounds Cardio regular rate, regular rhythm, S1 normal heart sound, S2 normal heart sound and no murmurs GI non-distended and no masses Auscultation: hypoactive bowel sounds Palpation: soft Back/Spine no CVA tenderness Cervical Spine: Negative for cervical spine tenderness Thoracic Spine / Upper Back: Negative for thoracic spinal tenderness Lumbar Spine / Lower Back: Negative for lumbar spinal tenderness Extremity Extremity Narrative: There is swelling and tenderness to the left elbow. Axillary, median, radial and ulnar function intact. Neuro oriented x3, CN's II-XII intact bilaterally, No moves all extremities, no focal motor deficits and no sensory deficits noted Sensorium / Orientation: alert Psych mental status grossly normal Skin General Skin Exam: Negative for petechiae Lesions: no lesions Rashes: no rashes MDM MDM MDM Narrative Medical decision making narrative: X-ray of the elbow was obtained to evaluate for fracture, dislocation, fracture dislocation versus contusion. Prior records were reviewed. Patient has significant cardiac and pulmonary problems on chronic O2. He is also an anticoagulant. Patient was made NPO. Patient was treated with IV Zofran and morphine for his pain. Discussed case with Dr. Bear Perez. In light of patient's complex past medical history plan is posterior long-arm splint sling and follow-up in the office. He will be discharged to home with pain medicine. Sinc I was informed by nurse at the time of discharge the patient will follow-up with Dr. Mcleod. He has been instructed to call Dr. Mcleod for follow-up. E this is minimally displaced and patient has complex past medical history heat may be best served by conservative treatment. Radiography Diagnostic Testing: Three-view x-ray of the left elbow was independently reviewed and interpreted by me at 1051 as positive for a minimally displaced comminuted olecranon fracture. Dr. Bear Perez who is on-call for orthopedics was paged. Procedures Upper Extremity Splints Upper Extremity Splint: Plaster and Long arm (Posterior. There is an opening to allow access to patient's fistula) Splint Fabrication: Fabricated Location: Left Discharge Plan Triage Chief Complaint: Upper Extremity Injury ED Provider: Jarek Osborne Dx/Rx/DC Orders Clinical Impression: Fracture of olecranon process of left ulna with intra-articular extension, COPD exacerbation, HTN (hypertension), ESRD on hemodialysis, Type 2 diabetes [facility], Lymphedema of both lower extremities Instructions: ED Elbow Fracture Prescriptions: New oxycodone-acetaminophen [oxycodone-acetaminophen] 5-325 mg tablet 1 tab PO Q6H PRN PRN (Reason: pain) 5 Days Qty: 20 0RF No Action prednisone 20 mg tablet 20 mg PO DAILY levothyroxine 75 MCG tablet 75 mcg PO DAILY tacrolimus 1 MG capsule 0.5 mg PO BID pantoprazole 40 MG tablet 40 mg PO MOWEFR bupropion HCl 150 MG tablet sustained-release 12 hr 150 mg PO BID allopurinol 100 MG tablet 100 mg PO DAILY multivit with [id number] 1 EACH tablet 1 tablet PO DAILY ketoconazole 120 ML shampoo 1 applic TP MOWEFR sertraline 100 MG tablet 100 mg PO QHS aspirin 81 MG tablet,delayed release (DR/EC) 81 mg PO DAILY@0800 ergocalciferol (vitamin D2) 50,000 UNIT capsule 50,000 unit PO MO magnesium oxide 400 MG tablet 400 mg PO TID ipratropium-albuterol 0.5 mg-3 mg(2.5 mg base)/3 mL Solution For Nebulization 3 ml INHALATION Q6H PRN (Reason: Wheezing) zolpidem 5 mg Tablet 5 mg PO QHS PRN (Reason: Insomnia) fluticasone propionate [Flonase Allergy Relief] 50 mcg/actuation [place],Suspension 2 spray INTRANASAL DAILY sennosides [senna] 8.6 mg Tablet 8.6 mg PO PRN PRN (Reason: Constipation) loperamide [Imodium A-D] 2 mg Capsule 2 mg PO Q6H PRN (Reason: Diarrhea) miconazole nitrate 2 % Cream 1 applic TOPICAL QHS acetaminophen 500 mg Tablet 500 mg PO Q6H PRN (Reason: Pain) bisacodyl 10 mg Suppository 10 mg NC Q18H PRN (Reason: Constipation) calcium carbonate [Tums] 200 mg calcium (500 mg) Tablet,Chewable 200 mg PO Q18H PRN (Reason: Indigestion) docusate sodium [Colace] 100 mg Capsule 100 mg PO DAILY PRN (Reason: Constipation) furosemide [Lasix] 20 mg Tablet 20 mg PO DAILY insulin glargine [Lantus Solostar U-100 Insulin] 100 unit/mL (3 mL) Insulin Pen 28 unit SUBCUT DAILY Biofreeze (menthol) 4 % Gel 1 applic TOPICAL BID PRN (Reason: Pain) gabapentin 100 mg Capsule 100 mg PO TID Ozempic 0.25 mg or 0.5 mg(2 mg/1.5 mL) Pen Injector 0.75 mg SUBCUT MO Rx Instructions: for 4 doses cetirizine [Zyrtec] 10 mg Tablet 10 mg PO DAILY PRN (Reason: ALLERGIES) sulfamethoxazole-trimethoprim 800-160 mg tablet 1 tab PO MOWEFR tamsulosin 0.4 mg Capsule 0.4 mg PO BID calcitriol 0.25 mcg capsule 0.25 mcg PO DAILY warfarin [Jantoven] 5 mg Tablet 5 mg PO DAILY@1700 Qty: 0 0RF metoprolol tartrate 50 mg Tablet 50 mg PO BID Qty: 0 0RF diltiazem HCl 120 mg Capsule,Extended Release 24hr 120 mg PO DAILY Qty: 0 0RF Primary Care Provider: Wilver Garcias Referrals: Bacilio Mcleod DO [Med Staff - Active Staff] - 5-7 Days Wilver Garcias MD [Primary Care Provider] - Disposition Disposition: Home, Self Care
[2022-07-14 15:56] VITALS: BP 136/77
--- NOTE | 2022-07-14 17:20 | NURSING ---
CALLED [facility], ETA IS 1830
[2022-07-14 18:13] VITALS: BP 148/77
== END 2022-07-14 18:18 | disposition home or self-care (01) ==
PROVIDERS: Emergency Provider Emergency Medicine; PCP Internal Medicine; Visit Provider Emergency Medicine
DX: S52.032A Displaced fracture of olecranon process with intraarticular extension of left ulna, initial encounter for closed fracture (principal); I13.2 Hypertensive heart and chronic kidney disease with heart failure and with stage 5 chronic kidney disease, or end stage renal disease; Z99.2 Dependence on renal dialysis; J44.1 Chronic obstructive pulmonary disease with (acute) exacerbation; I50.9 Heart failure, unspecified; E11.22 Type 2 diabetes mellitus with diabetic chronic kidney disease; N18.6 End stage renal disease; Z87.891 Personal history of nicotine dependence; W18.30XA Fall on same level, unspecified, initial encounter; E66.9 Obesity, unspecified
CPT/HCPCS: 29405; 73070; 96374; 96375; 96376; 99284; A4216; J2405

== ENCOUNTER 2022-07-16 12:54 | Emergency (ER) | payer MEDICARE, MEDICAID, SELFPAY ==
[2022-07-16 12:56] VITALS: BP 149/72; PULSE 90; RESP 15; TEMP 36.7; O2SAT 98; BMI 39.1
[2022-07-16 12:59] VITALS: BP 149/72; PULSE 85; RESP 16; O2SAT 99
--- NOTE | 2022-07-16 13:22 | EX.ED.UPPERE ---
HPI History of Present Illness Chief Complaint: Upper Extremity Injury Informant: patient Narrative Narrative: Patient present secondary to left elbow pain. He was seen in the emergency room on the after falling onto his left elbow. He was diagnosed with a left olecranon fracture. Patient states he was trying to adjust the splint today to make it more comfortable. He comes in via EMS without a splint in place. He does have fistula to the left forearm and receives dialysis several days a week. He states that he had just cut a window in the splint so that access to the fistula could be obtained. [facility] Medical History Abdominal pain [id number] kidney injury Alcohol abuse Alcohol abuse following liver transplant Alcohol withdrawal Anemia Arthritis Atrial flutter Chronic dermatitis Cirrhosis Cirrhosis COPD (chronic obstructive pulmonary disease) COPD exacerbation CPAP (continuous positive airway pressure) dependence Depression Diabetes mellitus Dietary restriction Dyspnea Encephalopathy Former smoker Gastric reflux Gout History of anxiety History of CHF (congestive heart failure) History of echocardiogram History of IBS History of renal disease History of skin cancer History of ulceration HTN (hypertension) Hypertension Hypokalemia Hypoxia Infected ulcer of skin Insulin dependent diabetes mellitus Macular degeneration Nausea & vomiting Non-healing non-surgical wound alf resident On home oxygen therapy Shortness of breath on exertion Skin ulcer of abdominal wall with fat layer exposed Superficial ulcer of skin Thyroid disease Urticaria Venous insufficiency Venous insufficiency of both lower extremities Walker as ambulation aid Wears glasses Home Medications levothyroxine 75 mcg tablet 75 mcg PO DAILY thyroid 11/19/13 [History Last Taken 06/10/22] tacrolimus 1 mg capsule, immediate-release 0.5 mg PO BID transplant med 06/09/16 [History Last Taken 06/10/22] pantoprazole 40 mg tablet,delayed release 40 mg PO MOWEFR gerd 09/07/17 [History Last Taken 06/09/22] allopurinol 100 mg tablet 100 mg PO DAILY Gout 07/07/19 [History Last Taken 06/10/22] bupropion HCl 150 mg tablet,12 hr sustained-release 150 mg PO BID major depressive disorder 07/07/19 [History Last Taken 06/10/22] multivit with minerals-folic acid-lycopene 0.4 mg-600 mcg tablet 1 tablet PO DAILY supplement 07/07/19 [History Last Taken 06/10/22] aspirin 81 mg tablet,delayed release 81 mg PO DAILY@0800 [facility] 08/30/20 [History Last Taken 06/10/22] ergocalciferol (vitamin D2) 1,250 mcg (50,000 unit) capsule 50,000 unit PO MO supplement 08/30/20 [History Last Taken 05/22/22] ketoconazole 2 % shampoo 1 applic TP MOWEFR dry scalp 08/30/20 [History Last Taken 06/09/22] magnesium oxide 400 mg PO TID supplement 08/30/20 [History Last Taken 06/10/22] sertraline 100 mg tablet 100 mg PO QHS depression 08/30/20 [History Last Taken 06/09/22] fluticasone propionate 50 mcg/actuation nasal spray,suspension (Flonase Allergy Relief) 2 spray intranasal DAILY allergies 03/11/21 [History Last Taken 06/10/22] ipratropium 0.5 mg-albuterol 3 mg (2.5 mg base)/3 mL nebulization soln 3 ml inhalation Q6H PRN Wheezing 03/11/21 [History Last Taken 06/10/22] sennosides 8.6 mg tablet (senna) 8.6 mg PO PRN PRN Constipation 03/11/21 [History Last Taken Unknown] zolpidem 5 mg tablet 5 mg PO QHS PRN Insomnia 03/11/21 [History Last Taken 06/09/22] acetaminophen 500 mg tablet 500 mg PO Q6H PRN Pain 02/06/22 [History Last Taken Unknown] bisacodyl 10 mg rectal suppository 10 mg TN Q18H PRN Constipation 02/06/22 [History Last Taken Unknown] calcium carbonate 200 mg calcium (500 mg) chewable tablet (Tums) 200 mg PO Q18H PRN Indigestion 02/06/22 [History Last Taken Unknown] docusate sodium 100 mg capsule (Colace) 100 mg PO DAILY PRN Constipation 02/06/22 [History Last Taken Unknown] furosemide 20 mg tablet (Lasix) 20 mg PO DAILY 02/06/22 [History Last Taken 06/10/22] insulin glargine 100 unit/mL (3 mL) subcutaneous pen (Lantus Solostar U-100 Insulin) 28 unit subcut DAILY 02/06/22 [History Last Taken 06/10/22] loperamide 2 mg capsule (Imodium A-D) 2 mg PO Q6H PRN Diarrhea 02/06/22 [History Last Taken 06/10/22] menthol 4 % topical gel (Biofreeze (menthol)) 1 applic topical BID PRN Pain 02/06/22 [History Last Taken Unknown] miconazole nitrate 2 % topical cream 1 applic topical QHS 02/06/22 [History Last Taken 06/10/22] gabapentin 100 mg capsule 100 mg PO TID 04/04/22 [History Last Taken 06/10/22] semaglutide 0.25 mg or 0.5 mg (2 mg/1.5 mL) subcutaneous pen injector (Ozempic) 0.75 mg subcut MO 04/04/22 [History Last Taken 06/09/22] prednisone 20 mg tablet 20 mg PO DAILY 04/24/22 [History Last Taken 06/10/22] calcitriol 0.25 mcg capsule 0.25 mcg PO DAILY KIDNEY DISEASE 06/10/22 [History Last Taken 06/10/22] cetirizine 10 mg tablet (Zyrtec) 10 mg PO DAILY PRN ALLERGIES 06/10/22 [History Last Taken 06/10/22] sulfamethoxazole 800 mg-trimethoprim 160 mg tablet 1 tab PO MOWEFR INFECTION PREVENTION 06/10/22 [History Last Taken 06/09/22] tamsulosin 0.4 mg capsule 0.4 mg PO BID PROSTAIT 06/10/22 [History Last Taken 06/10/22] diltiazem HCl 120 mg capsule,extended release 24 hr 120 mg PO DAILY #0 caps 06/15/22 [Rx Last Taken Unknown] metoprolol tartrate 50 mg tablet 50 mg PO BID #0 tabs 06/15/22 [Rx Last Taken Unknown] warfarin 5 mg tablet (Jantoven) 5 mg PO DAILY@1700 #0 tabs 06/15/22 [Rx Last Taken Unknown] oxycodone-acetaminophen 5 mg-325 mg tablet 1 tab PO Q6H PRN PRN pain 5 days #20 TABLETS 07/14/22 [Rx Last Taken Unknown] Allergy/AdvReac Type Severity Reaction Status Date / Time cortisone [Cortisone] Allergy Angioedema Verified 07/16/22 12:56 Penicillins Allergy Unknown Verified 07/16/22 12:56 Surgical History History of esophagogastroduodenoscopy (EGD) History of excision of pilonidal cyst History of knee surgery History of parathyroid surgery History of tonsillectomy Hx of liver transplant Hx of thumb surgery Liver transplanted Social History household members: none housing: half-way Smoking Status: Former smoker alcohol intake: former substance use type: does not use ROS ROS ED Constitutional Constitutional ED: Denies chills or fever(s) Eyes Eyes: Denies change in vision or discharge from eye(s) ENT ENT ED: Denies discharge from eye(s), rhinorrhea or sore throat Cardiovascular Cardiovascular: Denies chest pain or palpitations Respiratory/Chest Respiratory/Chest: Denies cough or dyspnea Gastrointestinal Gastrointestinal: Denies abdominal pain, diarrhea, nausea or vomiting Genitourinary Genitourinary ED: Denies dysuria Musculoskeletal Musculoskeletal: Reports extremity pain; Denies back pain Integumentary Reports Abrasions; Denies rash Neurologic Neurologic: Denies headache(s) or weakness Psychiatric Psychiatric: Denies anxiety or depression Endocrine Endocrinology: Denies polydipsia or polyuria Allergic/Immunologic Allergic/Immunologic ED: Denies lip swelling or urticaria EXAM Physical Exam Const Vital Signs: 07/16/22 12:56 07/16/22 12:59 Temperature 98.0 F Temperature Source Temporal Pulse Rate 90 85 Respiratory Rate 15 16 Blood Pressure 149/72 H 149/72 H Blood Pressure Mean 97 97 Pulse Ox 98 99 Oxygen Delivery Method Nasal Cannula Nasal Cannula Oxygen Flow Rate (L/min) 4 4 Positive well nourished and well developed General Appearance ED: well developed HEENT Reports moist mucous membranes Eyes EOMs intact bilaterally Chest Wall inspection of chest normal and palpation of chest normal Resp normal respiratory effort and clear to auscultation bilaterally Cardio regular rate and regular rhythm GI non-tender GI Narrative: Several superficial abrasions across the anterior abdominal wall. Extremity Extremity Narrative: Ecchymosis and tenderness noted to the left elbow. Fistula in place over the left forearm with good thrill. Neuro oriented x3 Psych mental status grossly normal MDM MDM MDM Narrative Medical decision making narrative: Left elbow x-rays were obtained to ensure no displacement of his fracture. Radiography Diagnostic Testing: Radiology Impression Elbow X-Ray 07/16/22 13:55 IMPRESSION: Stable examination. Electronically Signed: Asher Jefferson MD at 14:23 EST , Treatment and Re-Evaluation Narrative: Left elbow x-rays from interpretation reveal olecranon fracture unchanged when compared to prior study. Radiology interpretation is reviewed and agrees. Patient is placed in a long posterior splint with 4 inch Ortho-Glass. I wrapped an Kai wrap both proximal and distal to his fistula site. I then wrapped the fistula site with a small Kai wrap it can be removed for his treatments and then replaced. Patient is to follow-up with Dr. Mcleod as previously planned. Discharge Plan Triage Chief Complaint: Upper Extremity Injury ED Provider: Pippa Gary Dx/Rx/DC Orders Clinical Impression: Elbow fracture, left Prescriptions: No Action prednisone 20 mg tablet 20 mg PO DAILY levothyroxine 75 MCG tablet 75 mcg PO DAILY tacrolimus 1 MG capsule 0.5 mg PO BID pantoprazole 40 MG tablet 40 mg PO MOWEFR bupropion HCl 150 MG tablet sustained-release 12 hr 150 mg PO BID allopurinol 100 MG tablet 100 mg PO DAILY multivit with [id number] 1 EACH tablet 1 tablet PO DAILY ketoconazole 120 ML shampoo 1 applic TP MOWEFR sertraline 100 MG tablet 100 mg PO QHS aspirin 81 MG tablet,delayed release (DR/EC) 81 mg PO DAILY@0800 ergocalciferol (vitamin D2) 50,000 UNIT capsule 50,000 unit PO MO magnesium oxide 400 MG tablet 400 mg PO TID ipratropium-albuterol 0.5 mg-3 mg(2.5 mg base)/3 mL Solution For Nebulization 3 ml INHALATION Q6H PRN (Reason: Wheezing) zolpidem 5 mg Tablet 5 mg PO QHS PRN (Reason: Insomnia) fluticasone propionate [Flonase Allergy Relief] 50 mcg/actuation [place],Suspension 2 spray INTRANASAL DAILY sennosides [senna] 8.6 mg Tablet 8.6 mg PO PRN PRN (Reason: Constipation) loperamide [Imodium A-D] 2 mg Capsule 2 mg PO Q6H PRN (Reason: Diarrhea) miconazole nitrate 2 % Cream 1 applic TOPICAL QHS acetaminophen 500 mg Tablet 500 mg PO Q6H PRN (Reason: Pain) bisacodyl 10 mg Suppository 10 mg TN Q18H PRN (Reason: Constipation) calcium carbonate [Tums] 200 mg calcium (500 mg) Tablet,Chewable 200 mg PO Q18H PRN (Reason: Indigestion) docusate sodium [Colace] 100 mg Capsule 100 mg PO DAILY PRN (Reason: Constipation) furosemide [Lasix] 20 mg Tablet 20 mg PO DAILY insulin glargine [Lantus Solostar U-100 Insulin] 100 unit/mL (3 mL) Insulin Pen 28 unit SUBCUT DAILY Biofreeze (menthol) 4 % Gel 1 applic TOPICAL BID PRN (Reason: Pain) gabapentin 100 mg Capsule 100 mg PO TID Ozempic 0.25 mg or 0.5 mg(2 mg/1.5 mL) Pen Injector 0.75 mg SUBCUT MO Rx Instructions: for 4 doses cetirizine [Zyrtec] 10 mg Tablet 10 mg PO DAILY PRN (Reason: ALLERGIES) sulfamethoxazole-trimethoprim 800-160 mg tablet 1 tab PO MOWEFR tamsulosin 0.4 mg Capsule 0.4 mg PO BID calcitriol 0.25 mcg capsule 0.25 mcg PO DAILY warfarin [Jantoven] 5 mg Tablet 5 mg PO DAILY@1700 Qty: 0 0RF metoprolol tartrate 50 mg Tablet 50 mg PO BID Qty: 0 0RF diltiazem HCl 120 mg Capsule,Extended Release 24hr 120 mg PO DAILY Qty: 0 0RF oxycodone-acetaminophen [oxycodone-acetaminophen] 5-325 mg tablet 1 tab PO Q6H PRN PRN (Reason: pain) 5 Days Qty: 20 0RF Primary Care Provider: Wilver Garcias Referrals: Bacilio Mcleod DO [Med Staff - Active Staff] - 1 Week Wilver Garcias MD [Primary Care Provider] - Disposition Disposition: Home, Self Care
--- NOTE | 2022-07-16 13:55 | RAD_ITS ---
STUDY: X-RAY - LEFT ELBOW REASON FOR EXAM: Male, 76 years old. Follow-up of elbow fracture. TECHNIQUE: 3 view(s) of the elbow. COMPARISON: Comparison is made with prior study dated 07/14/2022. FINDINGS: Stable avulsion fracture of the olecranon process of the proximal ulna. This is unchanged. Normal radiocapitellar and ulnotrochlear articulations. Joint effusion. RAD/Elbow 2 Views IMPRESSION: Stable examination. Electronically Signed: Asher Jefferson MD at 14:23 EST ,
--- NOTE | 2022-07-16 14:22 | ED.RN ---
pt found pick at abd wounds. wounds were cleaned and bandaged after [place] the [place]. cary [place], [place] [id number]
[2022-07-16 15:04] VITALS: BP 163/93; PULSE 87; RESP 16; O2SAT 96
== END 2022-07-16 16:05 | disposition home or self-care (01) ==
PROVIDERS: Emergency Provider Emergency Medicine; PCP Internal Medicine; Visit Provider Emergency Medicine
DX: S52.022D Displaced fracture of olecranon process without intraarticular extension of left ulna, subsequent encounter for closed fracture with routine healing (principal); J44.9 Chronic obstructive pulmonary disease, unspecified; I11.0 Hypertensive heart disease with heart failure; I50.9 Heart failure, unspecified; E11.9 Type 2 diabetes mellitus without complications; Z87.891 Personal history of nicotine dependence; X58.XXXD Exposure to other specified factors, subsequent encounter
CPT/HCPCS: 73070; 99284

== ENCOUNTER 2022-07-17 09:15 | Outpatient (RCR) | payer MEDICARE, MEDICAID, SELFPAY ==
[2022-06-22 00:25] VITALS: BP 131/80; PULSE 53; RESP 20; TEMP 36.3; O2SAT 98; BMI 37.1
[2022-06-26 10:12] VITALS: BP 128/79; PULSE 77; RESP 20; TEMP 35.4; BMI 37.1
--- NOTE | 2022-06-26 13:04 | PN.PCM_ITS ---
History of Present Illness Date of Service: 06/26/22 Chief Complaint: Bilateral lower extremity pain, redness and swelling. History of Wound: This is a 76 year-old white male who presents to the wound healing center today due to non healing bilateral lower extremity lesions. He states that his concerns have been present for over a year. Was seen at the wound center with no significant improvement and he was subsequently sent to see a Orthotic Fitter. He states that he was seen weekly and had a Zinc oxide wrap placed again without any improvement. His main concerns are bilateral lower extremity, rash, itching, irritation, redness and swelling. He was sent by his PCP to [facility] where he was seen by ID. He states that he was placed on IV antibiotics but again, he states that he does not believe it made any difference. He denies chills, fever or otherwise feeling of unwell. 06-05-22 He presents with new abdominal wound which he states has been present for at least 10 years. Had been seen at the wound center years ago for this. Never really achieved complete healing and patient also admits that he picks at it as well. Has had some ointment applied at his facility without significant improvement. He feels well otherwise. Progress of Wound: Missed last appointment due to being in the hospital with Kidney failure. No on dialysis. No new concerns at this time. Some improvement in abdominal ulcerations noted. He admits that he is still picking/scratching his skin. Objective Data Objective Data Vital Signs: Vital Signs Temp Pulse Resp BP Pulse Ox O2 Del Method O2 Flow Rate 95.7 F L 77 20 H 128/79 H 98 Room Air 3 06/26/22 10:12 06/26/22 10:12 06/26/22 10:12 06/26/22 10:12 06/22/22 00:25 06/26/22 10:12 06/22/22 00:25 Oxygen Flow Rate (L/min) 3 Oxygen Delivery Method Room Air Weight: 230 lb Body Mass Index (BMI) 37.1 Charges/Coding Procedures Integumentary 111xxx-113xx: 11090 Cle[place]atra subq tissue 20 sq cm/< Add On Codes: 41180 Cleopatra subq tissue add-on (x11. Additional Sq Cm debrided, please refer to clinical note.) Physical Exam Const General Appearance: cooperative, comfortable and well developed Orientation / Consciousness: awake, oriented to person, oriented to place and oriented to time HEENT normocephalic, head/scalp atraumatic and hearing grossly normal bilaterally Head and Scalp: normal to inspection, normocephalic and atraumatic Eyes General Eye: normal appearance of both eyes Neck full ROM and supple General: normal visual inspection Resp normal respiratory effort Effort and Inspection: able to speak in complete sentences Skin Wounds: wounds noted Neuro oriented x3, CN's II-XII intact bilaterally, moves all extremities and no focal motor deficits Psych mental status grossly normal Appearance: grossly normal Attitude: calm Activity / Motor Behavior: appropriate eye contact Debridement Note Debridement Note Wound debrided: Abdomen ( Cluster ) Type of Debridement: Excisional debridement Anesthesia Used: 4% Lidocaine Solution Depth: Down to and including healthy tissue and in the subcutaneous layer Percentage of wound debrided: 100 Instrument Used: 5mm curette Tissue Removed: Slough and devitalized tissue Severity: Fat Layer Exposed Amount of bleeding with debridement: Mild Bleeding Controlled with: Pressure Patient tolerated procedure: Patient tolerated procedure well Post-Debridement Measurements and Additional Note: Post-Debridement Measurements/Treatment - Nurse 1 - General Ulcer Assessment Start: 06/26/22 10:12 Freq: Status: Active Protocol: BROOKE Activity Type Activity Date Activity User E-sign Co-sign Detail Recorded Client Recorded Date Recorded By Document 06/26/22 10:12 [facility] [id number] 06/26/22 10:29 [facility] 06/26/22 10:12 - Today's Visit Information Type of service Follow-up 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 ) Arrival Mode Wheelchair Transfer Assistance None Patient Identification Verified (Name & Yes ) Height and Weight Body Mass Index (BMI) 37.1 BMI Classification Obese Vital Signs Temperature (97.8 F-99.1 F) 95.7 F L Temperature Source Temporal Pulse Rate (60-100) 77 Pulse Location Monitor Respiratory Rate (12-18) 20 H Respiratory rate source Observation Oxygen Delivery Method Room Air Blood Pressure (90/60-120/80) 128/79 H Blood Pressure Mean (mm Hg) 95 Source Monitor Position Sitting Blood Pressure Location Left Arm History Since Last Visit- (Skip if this is Patient's initial visit) Have you changed medications since your Yes last visit? Any new allergies or adverse reactions No Had a fall/change in ADL's that may No increase risk of falls Signs or symptoms of abuse and/or No neglect since last visit Have you been in the hospital since your Yes last visit? Has dressing in place as prescribed Yes Has compression in place as prescribed N/A Has offloadiing in place as prescribed N/A Experienced any changes in pain level or No management Left Footwear Slipper Right Footwear Slipper Pain Scale: 0-10 Numeric Is Patient Pain Free? Yes WC - Nurse 1 - General Ulcer Measurement Start: 06/26/22 10:12 Freq: Status: Active Protocol: Activity Type Activity Date Activity User E-sign Co-sign Detail Recorded Client Recorded Date Recorded By Document 06/26/22 10:12 [facility] [id number] 06/26/22 10:29 [facility] 06/26/22 10:12 Wound Center Nurse 1 #4- abdominal cluster -Combined with other wound No -Current Size (cm) - Length 16.8 -Current Size (cm) - Width 16.4 -Current Size (cm) - Depth 0.1 -Total Square Cm 275.52 -Date of Last Picture (Recall this 06/26/22 field) -Photo Taken Yes -Epithelialization Small 1-33% -Tunneling No -Undermining/Tunneling No -Circular Undermining No -Exudate Amt Medium -Exudate Type Serosanguineous -Wound Margin Distinct, Outline Attached -Granulation Amt Medium (34-66%) -Granulation Quality Red -Slough/Fibrin Yes -Necrosis Amt Medium (34-66%) -Necrotic Tissue Type Adherent Slough -Texture (Dea-wound Skin Appearance) Assessed, Scarring -Moisture (Dea-wound Skin Appearance) Assessed -Color (Dea-wound Skin Appearance) Assessed -Temperature (Dea-wound Skin No Abnormality Appearance) (Pt Warm) -Tenderness on Palpation (Dea-wound No Skin Appearance) -Ulcer Cleansing Soap and Water -Foul Odor after Cleansing No -Anesthetic Used 4% Lidocaine Solution #2 LLE cluster -Combined with other wound No -Current Size (cm) - Length 22 -Current Size (cm) - Width 10.5 -Current Size (cm) - Depth 0.1 -Total Square Cm 231.0 -Date of Last Picture (Recall this 06/26/22 field) -Photo Taken Yes -Epithelialization None Present -Tunneling No -Undermining/Tunneling No -Circular Undermining No -Exudate Amt Small -Exudate Type Serous -Wound Margin Distinct, Outline Attached -Granulation Amt Large (67-100%) -Granulation Quality [place] -Slough/Fibrin Yes -Necrosis Amt Small (1-33%) -Necrotic Tissue Type Adherent Slough -Texture (Dea-wound Skin Appearance) Assessed -Moisture (Dea-wound Skin Appearance) Assessed, Maceration, Weeping,Dry/ Scaly -Color (Dea-wound Skin Appearance) Assessed -Temperature (Dea-wound Skin No Abnormality Appearance) (Pt Warm) -Tenderness on Palpation (Dea-wound No Skin Appearance) -Ulcer Cleansing Rinsed/ Irrigated with Saline -Foul Odor after Cleansing No -Anesthetic Used 4% Lidocaine Solution #1 RLE cluster -Combined with other wound No -Current Size (cm) - Length 0 -Current Size (cm) - Width 0 -Current Size (cm) - Depth 0 -Total Square Cm 0 -Epithelialization Large 67-100% Right Calf (cm) 40 Right Ankle (cm) 23.6 Left Calf (cm) 41.3 Left Ankle (cm) 25 WC - Nurse 2 - General Ulcer CM Notes Start: 06/26/22 10:12 Freq: Status: Active Protocol: Activity Type Activity Date Activity User E-sign Co-sign Detail Recorded Client Recorded Date Recorded By Document 06/26/22 10:43 MW [id number] 06/26/22 10:49 MW 06/26/22 10:43 Wound Center Nurse 2 #4- abdominal cluster -Time 10:43 -Correct Patient Yes -Correct Side, Site, Position Yes -Correct Procedure Yes -Procedure Performed Yes -Type of Procedure Debridement -Clinical Debridement Subcutaneous -Tissue Removed Subcutaneous -Post Debridement (cm) - Length 14.0 -Post Debridement (cm) - Width 16.0 -Post Debridement (cm) - Depth 0.1 -Total Square (Post) (cm) 224.00 -Area of Debridement (cm) - Length 14.0 -Area of Debridement (cm) - Width 16.0 -Total Square (Area) (cm) 224.00 -Tunneling No -Undermining/Tunneling No -Circular Undermining No -Wound/Ulcer Outcome Not Healed -Ulcer Cleansing Rinsed/ Irrigated with Saline -Foul Odor after Cleansing No -Bioengineered Tissue No -Bleeding Controlled with Pressure -Treatment Response Procedure Tolerated Well -Offloading No -Debridement - Subq, 1st 20sq cm Yes -Debridement, SubQ, ea addt'l 20sq cm 11 or part thereof #2 LLE cluster -Time 10:45 -Correct Patient Yes -Correct Side, Site, Position Yes -Correct Procedure Yes -Procedure Performed No -Post Debridement (cm) - Length 0.1 -Post Debridement (cm) - Width 0.1 -Post Debridement (cm) - Depth 0.1 -Total Square (Post) (cm) 0.01 -Tunneling No -Undermining/Tunneling No -Circular Undermining No -Wound/Ulcer Outcome Not Healed #1 RLE cluster -Time 10:48 -Correct Patient Yes -Correct Side, Site, Position Yes -Correct Procedure Yes -Procedure Performed No -Post Debridement (cm) - Length 0.1 -Post Debridement (cm) - Width 0.1 -Post Debridement (cm) - Depth 0.1 -Total Square (Post) (cm) 0.01 -Tunneling No -Undermining/Tunneling No -Circular Undermining No -Wound/Ulcer Outcome Not Healed Pain Scale: 0-10 Numeric Is Patient Pain Free? Yes WC - Nurse 3 - General Ulcer D/C NN Start: 06/26/22 10:12 Freq: Status: Active Protocol: Activity Type Activity Date Activity User E-sign Co-sign Detail Recorded Client Recorded Date Recorded By Document 06/26/22 10:59 DL [id number] 06/26/22 11:02 DL 06/26/22 10:59 Wound Care Nurse 3 #4- abdominal cluster -Ulcer Cleansing Rinsed/ Irrigated with Saline -Foul Odor after Cleansing No -Primary Dressing Applied NonAdherent Contact Layer -Other Dressing collagen Pwder -Primary Dressing Covered/Secured with Dry Gauze, Secured with Tape -Other Covering ABD #2 LLE cluster -Ulcer Cleansing Rinsed/ Irrigated with Saline -Primary Dressing Applied NonAdherent Contact Layer, Optilok 6.5x10 -Primary Dressing Covered/Secured with Dry Gauze & Roll Gauze, Secured with Tape -Optilok 6.5x10 1 #1 RLE cluster -Ulcer Cleansing Rinsed/ Irrigated with Saline -Foul Odor after Cleansing No -Primary Dressing Applied Optilok 6.5x10 -Primary Dressing Covered/Secured with Dry Gauze & Roll Gauze, Secured with Tape -Optilok 6.5x10 1 TIFFANIE -Tubular Bandage Single Layer -Size of Tubigrip Used Size D -Size D ($) 1 Treatment Response Procedure Tolerated Well Pain Scale: 0-10 Numeric Is Patient Pain Free? Yes WC - Visit Discharge Discharge Condition Stable Ambulatory Status Wheelchair Transportation ECF Facility Type Assisted Care Facility Orders Sent Yes Assessment/Plan Assessment/Plan (1) Superficial ulcer of skin: CODE(S): L98.491 - Non-pressure chronic ulcer of skin of other sites limited to breakdown of skin (2) Venous insufficiency of both lower extremities: CODE(S): I87.2 - Venous insufficiency (chronic) (peripheral) (3) Chronic dermatitis: CODE(S): L30.9 - Dermatitis, unspecified (4) Venous insufficiency: CODE(S): I87.2 - Venous insufficiency (chronic) (peripheral) (5) Urticaria: CODE(S): L50.9 - Urticaria, unspecified (6) Skin ulcer of abdominal wall with fat layer exposed: CODE(S): L98.492 - Non-pressure chronic ulcer of skin of other sites with fat layer exposed PLAN: Plan Debridement done as documented above, procedure was well-tolerated. Some improvement noted. Continue collagen powder to abdominal ulcers, cover with Adaptic and gauze. Continue Adaptic, superabsorbent dressing, Tubigrip and Kai wrap for compression to bilateral lower extremity. Change daily. Continue leg elevation, adequate protein intake, optimal diabetes control, and other dietary/lifestyle modifications recommended. His questions were answered and he was advised to call with any further questions or concerns. Follow-up with me in 1 week. This note was generated with [employer] software. It may contain incorrect words, spelling, and punctuation that were not noted in checking the note before signing.
[2022-07-03 09:56] VITALS: BP 136/61; PULSE 81; RESP 18; TEMP 36.7; BMI 37.1
--- NOTE | 2022-07-03 11:05 | PCM.WC.PN ---
History of Present Illness Date of Service: 07/03/22 Chief Complaint: Bilateral lower extremity pain, redness and swelling. History of Wound: This is a 76 year-old white male who presents to the wound healing center today due to non healing bilateral lower extremity lesions. He states that his concerns have been present for over a year. Was seen at the wound center with no significant improvement and he was subsequently sent to see a Website Optimization Strategist. He states that he was seen weekly and had a Zinc oxide wrap placed again without any improvement. His main concerns are bilateral lower extremity, rash, itching, irritation, redness and swelling. He was sent by his PCP to [facility] where he was seen by ID. He states that he was placed on IV antibiotics but again, he states that he does not believe it made any difference. He denies chills, fever or otherwise feeling of unwell. 06-05-22 He presents with new abdominal wound which he states has been present for at least 10 years. Had been seen at the wound center years ago for this. Never really achieved complete healing and patient also admits that he picks at it as well. Has had some ointment applied at his facility without significant improvement. He feels well otherwise. Progress of Wound: Improving. No new concerns at this time. Objective Data Objective Data Vital Signs: Vital Signs Temp Pulse Resp BP Pulse Ox O2 Del Method O2 Flow Rate 98.1 F 81 18 136/61 H 98 Room Air 3 07/03/22 09:56 07/03/22 09:56 07/03/22 09:56 07/03/22 09:56 06/22/22 00:25 06/26/22 10:12 06/22/22 00:25 Oxygen Flow Rate (L/min) 3 Oxygen Delivery Method Room Air Weight: 230 lb Body Mass Index (BMI) 37.1 Charges/Coding Procedures Integumentary 111xxx-113xx: 12462 Cleopatra subq tissue 20 sq cm/< Add On Codes: 21510 Cleopatra subq tissue add-on (x10. Additional square centimeter debrided, please refer to clinical note) Physical Exam Const General Appearance: cooperative, comfortable and well developed Orientation / Consciousness: awake, oriented to person, oriented to place and oriented to time HEENT normocephalic, head/scalp atraumatic and hearing grossly normal bilaterally Head and Scalp: normal to inspection, normocephalic and atraumatic Eyes General Eye: normal appearance of both eyes Neck full ROM and supple General: normal visual inspection Resp normal respiratory effort Effort and Inspection: able to speak in complete sentences Skin Wounds: wounds noted Neuro oriented x3, CN's II-XII intact bilaterally, moves all extremities and no focal motor deficits Psych mental status grossly normal Appearance: grossly normal Attitude: calm Activity / Motor Behavior: appropriate eye contact Debridement Note Debridement Note Wound debrided: Abdominal Cluster Type of Debridement: Excisional debridement Anesthesia Used: 4% Lidocaine Solution Depth: Down to and including healthy tissue and in the subcutaneous layer Percentage of wound debrided: 100 Instrument Used: 5mm curette Tissue Removed: Slough and devitalized tissue Severity: Fat Layer Exposed Amount of bleeding with debridement: Mild Bleeding Controlled with: Pressure Patient tolerated procedure: Patient tolerated procedure well Post-Debridement Measurements and Additional Note: Post-Debridement Measurements/Treatment - Nurse 1 - General Ulcer Assessment Start: 06/26/22 10:12 Freq: Status: Active Protocol: BROOKE Activity Type Activity Date Activity User E-sign Co-sign Detail Recorded Client Recorded Date Recorded By Document 06/26/22 10:12 [facility] [id number] 06/26/22 10:29 [facility] Document 07/03/22 09:56 DL [id number] 07/03/22 10:13 DL 06/26/22 07/03/22 10:12 09:56 - Today's Visit Information Type of service Follow-up Visit Follow-up Visit (Physician/ELECTRICIAN SHIP (Physician/ELECTRICIAN SHIP ) ) Arrival Mode Wheelchair Wheelchair Transfer Assistance None None Patient Identification Verified (Name & Yes Yes ) Patient Requires Transmission-Based No Precautions Finger Stick Blood Sugar(mg/dl) (if 149 indicated): Blood Sugar Stated by Patient Height and Weight Body Mass Index (BMI) 37.1 37.1 BMI Classification Obese Obese Vital Signs Temperature (97.8 F-99.1 F) 95.7 F L 98.1 F Temperature Source Temporal Temporal Pulse Rate (60-100) 77 81 Pulse Location Monitor Monitor Respiratory Rate (12-18) 20 H 18 Respiratory rate source Observation Observation Oxygen Delivery Method Room Air Blood Pressure (90/60-120/80) 128/79 H 136/61 H Blood Pressure Mean (mm Hg) 95 86 Source Monitor Monitor Position Sitting Blood Pressure Location Left Arm History Since Last Visit- (Skip if this is Patient's initial visit) Have you changed medications since your Yes No last visit? Any new allergies or adverse reactions No No Had a fall/change in ADL's that may No No increase risk of falls Signs or symptoms of abuse and/or No No neglect since last visit Have you been in the hospital since your Yes No last visit? Has dressing in place as prescribed Yes Yes Has compression in place as prescribed N/A No Has offloadiing in place as prescribed N/A N/A Experienced any changes in pain level or No No management Left Footwear Slipper Right Footwear Slipper Pain Scale: 0-10 Numeric Is Patient Pain Free? Yes Yes WC - Nurse 1 - General Ulcer Measurement Start: 06/26/22 10:12 Freq: Status: Active Protocol: Activity Type Activity Date Activity User E-sign Co-sign Detail Recorded Client Recorded Date Recorded By Document 06/26/22 10:12 [facility] [id number] 06/26/22 10:29 BM Document 07/03/22 09:56 DL [id number] 07/03/22 10:13 DL 06/26/22 07/03/22 10:12 09:56 Wound Center Nurse 1 #4- abdominal cluster -Combined with other wound No -Current Size (cm) - Length 16.8 18.5 -Current Size (cm) - Width 16.4 16.5 -Current Size (cm) - Depth 0.1 0.1 -Total Square Cm 275.52 305.25 -Date of Last Picture (Recall this 06/26/22 field) -Photo Taken Yes Yes -Epithelialization Small 1-33% -Tunneling No -Undermining/Tunneling No -Circular Undermining No -Exudate Amt Medium Medium -Exudate Type Serosanguineous Serosanguineous -Wound Margin Distinct, Indistinct, Non Outline -Visible Attached -Granulation Amt Medium (34-66%) Medium (34-66%) -Granulation Quality Red Downs -Slough/Fibrin Yes -Necrosis Amt Medium (34-66%) Medium (34-66%) -Necrotic Tissue Type Adherent Slough Adherent Slough -Structure Exposed N/A -Texture (Dea-wound Skin Appearance) Assessed, Scarring Scarring -Moisture (Dea-wound Skin Appearance) Assessed Dry/Scaly -Color (Dea-wound Skin Appearance) Assessed No Abnormality, Hemosiderin Staining, Mottled -Temperature (Dea-wound Skin No Abnormality No Abnormality Appearance) (Pt Warm) (Pt Warm) -Tenderness on Palpation (Dea-wound No No Skin Appearance) -Ulcer Cleansing Soap and Water Rinsed/ Irrigated with Saline -Foul Odor after Cleansing No No -Anesthetic Used 4% Lidocaine 5% Lidocaine Solution Gel #2 LLE cluster -Combined with other wound No -Current Size (cm) - Length 22 0.1 -Current Size (cm) - Width 10.5 0.1 -Current Size (cm) - Depth 0.1 0.1 -Total Square Cm 231.0 0.01 -Date of Last Picture (Recall this 06/26/22 field) -Photo Taken Yes No -Epithelialization None Present -Tunneling No -Undermining/Tunneling No -Circular Undermining No -Exudate Amt Small Small -Exudate Type Serous Yellow/Green -Wound Margin Distinct, Indistinct, Non Outline -Visible Attached -Granulation Amt Large (67-100%) Large (67-100%) -Granulation Quality Downs Downs -Slough/Fibrin Yes -Necrosis Amt Small (1-33%) Small (1-33%) -Necrotic Tissue Type Adherent Slough Adherent Slough -Structure Exposed N/A -Texture (Dea-wound Skin Appearance) Assessed No Abnormality, Scarring -Moisture (Dea-wound Skin Appearance) Assessed, Dry/Scaly Maceration, Weeping,Dry/ Scaly -Color (Dea-wound Skin Appearance) Assessed Hemosiderin Staining -Temperature (Dea-wound Skin No Abnormality No Abnormality Appearance) (Pt Warm) (Pt Warm) -Tenderness on Palpation (Dea-wound No No Skin Appearance) -Ulcer Cleansing Rinsed/ Rinsed/ Irrigated with Irrigated with Saline Saline -Foul Odor after Cleansing No No -Anesthetic Used 4% Lidocaine 5% Lidocaine Solution Gel #1 RLE cluster -Combined with other wound No -Current Size (cm) - Length 0 0.1 -Current Size (cm) - Width 0 0.1 -Current Size (cm) - Depth 0 0.1 -Total Square Cm 0 0.01 -Photo Taken No -Epithelialization Large 67-100% -Exudate Amt Medium -Exudate Type Yellow/Green -Wound Margin Indistinct, Non -Visible -Granulation Amt Large (67-100%) -Granulation Quality Downs -Necrosis Amt Small (1-33%) -Necrotic Tissue Type Adherent Slough -Structure Exposed Fat Layer Exposed -Texture (Dea-wound Skin Appearance) Scarring -Moisture (Dea-wound Skin Appearance) Dry/Scaly -Color (Dea-wound Skin Appearance) Hemosiderin Staining -Temperature (Dea-wound Skin No Abnormality Appearance) (Pt Warm) -Tenderness on Palpation (Dea-wound No Skin Appearance) -Ulcer Cleansing Wound Cleanser -Foul Odor after Cleansing No -Anesthetic Used 5% Lidocaine Gel Right Calf (cm) 40 40 Right Ankle (cm) 23.6 24 Left Calf (cm) 41.3 40.6 Left Ankle (cm) 25 24.6 WC - Nurse 2 - General Ulcer CM Notes Start: 06/26/22 10:12 Freq: Status: Active Protocol: Activity Type Activity Date Activity User E-sign Co-sign Detail Recorded Client Recorded Date Recorded By Document 06/26/22 10:43 MW [id number] 06/26/22 10:49 MW Document 07/03/22 10:52 MW [id number] 07/03/22 10:56 MW 06/26/22 07/03/22 10:43 10:52 Wound Center Nurse 2 #4- abdominal cluster -Time 10:43 10:53 -Correct Patient Yes Yes -Correct Side, Site, Position Yes Yes -Correct Procedure Yes Yes -Procedure Performed Yes Yes -Type of Procedure Debridement Debridement -Clinical Debridement Subcutaneous Subcutaneous -Tissue Removed Subcutaneous Subcutaneous -Post Debridement (cm) - Length 14.0 13.5 -Post Debridement (cm) - Width 16.0 15.0 -Post Debridement (cm) - Depth 0.1 0.1 -Total Square (Post) (cm) 224.00 202.50 -Area of Debridement (cm) - Length 14.0 13.5 -Area of Debridement (cm) - Width 16.0 15.0 -Total Square (Area) (cm) 224.00 202.50 -Tunneling No No -Undermining/Tunneling No No -Circular Undermining No No -Wound/Ulcer Outcome Not Healed Not Healed -Ulcer Cleansing Rinsed/ Rinsed/ Irrigated with Irrigated with Saline Saline -Foul Odor after Cleansing No No -Bioengineered Tissue No No -Bleeding Controlled with Pressure Pressure -Treatment Response Procedure Procedure Tolerated Well Tolerated Well -Offloading No No -Debridement - Subq, 1st 20sq cm Yes Yes -Debridement, SubQ, ea addt'l 20sq cm 11 10 or part thereof #2 LLE cluster -Time 10:45 10:53 -Correct Patient Yes Yes -Correct Side, Site, Position Yes Yes -Correct Procedure Yes Yes -Procedure Performed No No -Post Debridement (cm) - Length 0.1 0.1 -Post Debridement (cm) - Width 0.1 0.1 -Post Debridement (cm) - Depth 0.1 0.1 -Total Square (Post) (cm) 0.01 0.01 -Tunneling No -Undermining/Tunneling No -Circular Undermining No -Wound/Ulcer Outcome Not Healed Not Healed #1 RLE cluster -Time 10:48 10:54 -Correct Patient Yes Yes -Correct Side, Site, Position Yes Yes -Correct Procedure Yes Yes -Procedure Performed No No -Post Debridement (cm) - Length 0.1 0.1 -Post Debridement (cm) - Width 0.1 0.1 -Post Debridement (cm) - Depth 0.1 0.1 -Total Square (Post) (cm) 0.01 0.01 -Tunneling No -Undermining/Tunneling No -Circular Undermining No -Wound/Ulcer Outcome Not Healed Not Healed Pain Scale: 0-10 Numeric Is Patient Pain Free? Yes Yes WC - Nurse 3 - General Ulcer D/C NN Start: 06/26/22 10:12 Freq: Status: Active Protocol: Activity Type Activity Date Activity User E-sign Co-sign Detail Recorded Client Recorded Date Recorded By Document 06/26/22 10:59 DL [id number] 06/26/22 11:02 DL Document 07/03/22 10:57 MW [id number] 07/03/22 10:59 MW 06/26/22 07/03/22 10:59 10:57 Wound Care Nurse 3 #4- abdominal cluster -Ulcer Cleansing Rinsed/ Rinsed/ Irrigated with Irrigated with Saline Saline -Foul Odor after Cleansing No No -Negative Pressure Wound Therapy N/A -Primary Dressing Applied NonAdherent NonAdherent Contact Layer Contact Layer -Other Dressing collagen Pwder collagen powder -Primary Dressing Covered/Secured with Dry Gauze, Secured with Tape -Other Covering ABD ABD pad #2 LLE cluster -Ulcer Cleansing Rinsed/ Not Cleansed Irrigated with Saline -Foul Odor after Cleansing No -Negative Pressure Wound Therapy N/A -Primary Dressing Applied NonAdherent Contact Layer, Optilok 6.5x10 -Primary Dressing Covered/Secured with Dry Gauze & Roll Gauze, Secured with Tape -Optilok 6.5x10 1 #1 RLE cluster -Ulcer Cleansing Rinsed/ Not Cleansed Irrigated with Saline -Foul Odor after Cleansing No No -Negative Pressure Wound Therapy N/A -Primary Dressing Applied Optilok 6.5x10 -Primary Dressing Covered/Secured with Dry Gauze & Roll Gauze, Secured with Tape -Optilok 6.5x10 1 Right -Lotion applied to leg before No compression wrap -Tubular Bandage Single Layer -Size of Tubigrip Used Size E -Size E ($) 1 Left -Lotion applied to leg before No compression wrap -Tubular Bandage Single Layer -Size of Tubigrip Used Size E -Size E ($) 1 TIFFANIE -Tubular Bandage Single Layer -Size of Tubigrip Used Size D -Size D ($) 1 Treatment Response Procedure Tolerated Well Pain Scale: 0-10 Numeric Is Patient Pain Free? Yes Yes Teaching: Wound Center Dressing Your Wound -Person Taught Patient -Teaching Method Discussion -Response to teaching Verbalize understanding WC - Visit Discharge Discharge Condition Stable Ambulatory Status Wheelchair Transportation ECF Facility Type Traffic Investigator Care Facility Orders Sent Yes Assessment/Plan Assessment/Plan (1) Superficial ulcer of skin: CODE(S): L98.491 - Non-pressure chronic ulcer of skin of other sites limited to breakdown of skin (2) Venous insufficiency of both lower extremities: CODE(S): I87.2 - Venous insufficiency (chronic) (peripheral) (3) Chronic dermatitis: CODE(S): L30.9 - Dermatitis, unspecified (4) Venous insufficiency: CODE(S): I87.2 - Venous insufficiency (chronic) (peripheral) (5) Urticaria: CODE(S): L50.9 - Urticaria, unspecified (6) Skin ulcer of abdominal wall with fat layer exposed: CODE(S): L98.492 - Non-pressure chronic ulcer of skin of other sites with fat layer exposed PLAN: Plan Debridement done as documented above, procedure was well-tolerated. Some improvement noted. Continue collagen powder to abdominal ulcers, cover with Adaptic and gauze. Continue Adaptic, superabsorbent dressing, Tubigrip and Kai wrap for compression to bilateral lower extremity. Change daily. Continue leg elevation, adequate protein intake, optimal diabetes control, and other dietary/lifestyle modifications recommended. His questions were answered and he was advised to call with any further questions or concerns. Follow-up with me in 1 week. This note was generated with [employer] dictation software. It may contain incorrect words, spelling, and punctuation that were not noted in checking the note before signing.
[2022-07-10 09:36] VITALS: BP 118/74; PULSE 81; RESP 18; TEMP 36.1; BMI 37.1
--- NOTE | 2022-07-10 12:50 | PCM.WC.PN ---
History of Present Illness Date of Service: 07/10/22 Chief Complaint: Bilateral lower extremity pain, redness and swelling. Abdominal Ulcers. History of Wound: This is a 76 year-old white male who presents to the wound healing center today due to non healing bilateral lower extremity lesions. He states that his concerns have been present for over a year. Was seen at the wound center with no significant improvement and he was subsequently sent to see a Primary Care Nurse Practitioner. He states that he was seen weekly and had a Zinc oxide wrap placed again without any improvement. His main concerns are bilateral lower extremity, rash, itching, irritation, redness and swelling. He was sent by his PCP to [facility] where he was seen by ID. He states that he was placed on IV antibiotics but again, he states that he does not believe it made any difference. He denies chills, fever or otherwise feeling of unwell. 06-05-22 He presents with new abdominal wound which he states has been present for at least 10 years. Had been seen at the wound center years ago for this. Never really achieved complete healing and patient also admits that he picks at it as well. Has had some ointment applied at his facility without significant improvement. He feels well otherwise. Progress of Wound: Improving. No new concerns at this time. Objective Data Objective Data Vital Signs: Vital Signs Temp Pulse Resp BP Pulse Ox O2 Del Method O2 Flow Rate 96.9 F L 81 18 118/74 98 Nasal Cannula 3 07/10/22 09:36 07/10/22 09:36 07/10/22 09:36 07/10/22 09:36 06/22/22 00:25 07/10/22 09:36 07/10/22 09:36 Oxygen Flow Rate (L/min) 3 Oxygen Delivery Method Nasal Cannula Weight: 230 lb Body Mass Index (BMI) 37.1 Charges/Coding Procedures Integumentary 111xxx-113xx: 69930 Cleopatra subq tissue 20 sq cm/< Add On Codes: 28448 Cleopatra subq tissue add-on ( X10 additional square centimeter debrided, please refer to clinical note.) Physical Exam Const General Appearance: cooperative, comfortable and well developed Orientation / Consciousness: awake, oriented to person, oriented to place and oriented to time HEENT normocephalic, head/scalp atraumatic and hearing grossly normal bilaterally Head and Scalp: normal to inspection, normocephalic and atraumatic Eyes General Eye: normal appearance of both eyes Neck full ROM and supple General: normal visual inspection Resp normal respiratory effort Effort and Inspection: able to speak in complete sentences Skin Wounds: wounds noted Neuro oriented x3, CN's II-XII intact bilaterally, moves all extremities and no focal motor deficits Psych mental status grossly normal Appearance: grossly normal Attitude: calm Activity / Motor Behavior: appropriate eye contact Debridement Note Debridement Note Wound debrided: Abdominal Cluster Type of Debridement: Excisional debridement Anesthesia Used: 5% Lidocaine Gel Depth: Down to and including healthy tissue and in the subcutaneous layer Percentage of wound debrided: 100 Instrument Used: 5mm curette Tissue Removed: Slough and devitalized tissue Severity: Fat Layer Exposed Amount of bleeding with debridement: Mild Bleeding Controlled with: Pressure Patient tolerated procedure: Patient tolerated procedure well Post-Debridement Measurements and Additional Note: Post-Debridement Measurements/Treatment - Nurse 1 - General Ulcer Assessment Start: 06/26/22 10:12 Freq: Status: Active Protocol: BROOKE Activity Type Activity Date Activity User E-sign Co-sign Detail Recorded Client Recorded Date Recorded By Document 06/26/22 10:12 [facility] [id number] 06/26/22 10:29 [facility] Document 07/03/22 09:56 [id number] 07/03/22 10:13 DL Document 07/10/22 09:36 [facility] [id number] 07/10/22 09:52 [facility] 06/26/22 07/03/22 07/10/22 10:12 09:56 09:36 - Today's Visit Information Type of service Follow-up Visit Follow-up Visit Follow-up Visit (Physician/BLUEPRINT DUPLICATOR (Physician/BLUEPRINT DUPLICATOR (Physician/BLUEPRINT DUPLICATOR ) ) ) Arrival Mode Wheelchair Wheelchair Wheelchair Transfer Assistance None None Other Transfer Assist (Other) 1 Patient Identification Verified (Name & Yes Yes Yes ) Patient Requires Transmission-Based No No Precautions Finger Stick Blood Sugar(mg/dl) (if 149 indicated): Blood Sugar Stated by Patient Height and Weight Body Mass Index (BMI) 37.1 37.1 37.1 BMI Classification Obese Obese Obese Vital Signs Temperature (97.8 F-99.1 F) 95.7 F L 98.1 F 96.9 F L Temperature Source Temporal Temporal Temporal Pulse Rate (60-100) 77 81 81 Pulse Location Monitor Monitor Monitor Respiratory Rate (12-18) 20 H 18 18 Respiratory rate source Observation Observation Observation Oxygen Delivery Method Room Air Nasal Cannula O2 L/MIN (L/min) 3 Blood Pressure (90/60-120/80) 128/79 H 136/61 H 118/74 Blood Pressure Mean (mm Hg) 95 86 88 Source Monitor Monitor Monitor Position Sitting Sitting Blood Pressure Location Left Arm Left Arm History Since Last Visit- (Skip if this is Patient's initial visit) Have you changed medications since your Yes No No last visit? Any new allergies or adverse reactions No No No Had a fall/change in ADL's that may No No No increase risk of falls Signs or symptoms of abuse and/or No No No neglect since last visit Have you been in the hospital since your Yes No No last visit? Has dressing in place as prescribed Yes Yes No Has compression in place as prescribed N/A No Yes Has offloadiing in place as prescribed N/A N/A N/A Experienced any changes in pain level or No No No management Left Footwear Slipper Diabetic Shoe Right Footwear Slipper Diabetic Shoe Other Footwear DOESN'T WEAR DRSGS ORDERED TO LE'S Pain Scale: 0-10 Numeric Is Patient Pain Free? Yes Yes Yes WC - Nurse 1 - General Ulcer Measurement Start: 06/26/22 10:12 Freq: Status: Active Protocol: Activity Type Activity Date Activity User E-sign Co-sign Detail Recorded Client Recorded Date Recorded By Document 06/26/22 10:12 [facility] [id number] 06/26/22 10:29 [facility] Document 07/03/22 09:56 DL [id number] 07/03/22 10:13 DL Document 07/10/22 09:36 [facility] [id number] 07/10/22 09:52 [facility] 06/26/22 07/03/22 07/10/22 10:12 09:56 09:36 Wound Center Nurse 1 #4- abdominal cluster -Combined with other wound No No -Current Size (cm) - Length 16.8 18.5 11.7 -Current Size (cm) - Width 16.4 16.5 16.5 -Current Size (cm) - Depth 0.1 0.1 0.1 -Total Square Cm 275.52 305.25 193.05 -Date of Last Picture (Recall this 06/26/22 field) -Photo Taken Yes Yes -Epithelialization Small 1-33% Small 1-33% -Tunneling No No -Undermining/Tunneling No No -Circular Undermining No No -Exudate Amt Medium Medium Medium -Exudate Type Serosanguineous Serosanguineous Serosanguineous -Wound Margin Distinct, Indistinct, Non Distinct, Outline -Visible Outline Attached Attached -Granulation Amt Medium (34-66%) Medium (34-66%) Large (67-100%) -Granulation Quality Red [place] Red -Slough/Fibrin Yes Yes -Necrosis Amt Medium (34-66%) Medium (34-66%) Small (1-33%) -Necrotic Tissue Type Adherent Slough Adherent Slough Adherent Slough -Structure Exposed N/A -Texture (Dea-wound Skin Appearance) Assessed, Scarring Assessed, Scarring Scarring -Moisture (Dea-wound Skin Appearance) Assessed Dry/Scaly Assessed -Color (Dea-wound Skin Appearance) Assessed No Abnormality, Assessed Hemosiderin Staining, Mottled -Temperature (Dea-wound Skin No Abnormality No Abnormality No Abnormality Appearance) (Pt Warm) (Pt Warm) (Pt Warm) -Tenderness on Palpation (Dea-wound No No No Skin Appearance) -Ulcer Cleansing Soap and Water Rinsed/ Soap and Water Irrigated with Saline -Foul Odor after Cleansing No No No -Anesthetic Used 4% Lidocaine 5% Lidocaine 4% Lidocaine Solution Gel Solution #2 LLE cluster -Combined with other wound No No -Current Size (cm) - Length 22 0.1 9 -Current Size (cm) - Width 10.5 0.1 19.5 -Current Size (cm) - Depth 0.1 0.1 0.1 -Total Square Cm 231.0 0.01 175.5 -Date of Last Picture (Recall this 06/26/22 field) -Photo Taken Yes No No -Epithelialization None Present None Present -Tunneling No No -Undermining/Tunneling No No -Circular Undermining No No -Exudate Amt Small Small Small -Exudate Type Serous Yellow/Green Serous -Wound Margin Distinct, Indistinct, Non Distinct, Outline -Visible Outline Attached Attached -Granulation Amt Large (67-100%) Large (67-100%) None Present (0 %) -Granulation Quality [place] -Slough/Fibrin Yes Yes -Necrosis Amt Small (1-33%) Small (1-33%) Large (67-100%) -Necrotic Tissue Type Adherent Slough Adherent Slough Adherent Slough -Structure Exposed N/A -Texture (Dea-wound Skin Appearance) Assessed No Abnormality, Assessed, Scarring Scarring -Moisture (Dea-wound Skin Appearance) Assessed, Dry/Scaly Assessed,Dry/ Maceration, Scaly Weeping,Dry/ Scaly -Color (Dea-wound Skin Appearance) Assessed Hemosiderin Assessed, Staining Erythema -Temperature (Dea-wound Skin No Abnormality No Abnormality No Abnormality Appearance) (Pt Warm) (Pt Warm) (Pt Warm) -Tenderness on Palpation (Dea-wound No No No Skin Appearance) -Ulcer Cleansing Rinsed/ Rinsed/ Soap and Water Irrigated with Irrigated with Saline Saline -Foul Odor after Cleansing No No No -Anesthetic Used 4% Lidocaine 5% Lidocaine 4% Lidocaine Solution Gel Solution #1 RLE cluster -Combined with other wound No -Current Size (cm) - Length 0 0.1 0.1 -Current Size (cm) - Width 0 0.1 0.1 -Current Size (cm) - Depth 0 0.1 0.1 -Total Square Cm 0 0.01 0.01 -Photo Taken No -Epithelialization Large 67-100% Large 67-100% -Exudate Amt Medium -Exudate Type Yellow/Green -Wound Margin Indistinct, Non -Visible -Granulation Amt Large (67-100%) -Granulation Quality [place] -Necrosis Amt Small (1-33%) -Necrotic Tissue Type Adherent Slough -Structure Exposed Fat Layer Exposed -Texture (Dea-wound Skin Appearance) Scarring -Moisture (Dea-wound Skin Appearance) Dry/Scaly -Color (Dea-wound Skin Appearance) Hemosiderin Staining -Temperature (Dea-wound Skin No Abnormality Appearance) (Pt Warm) -Tenderness on Palpation (Dea-wound No Skin Appearance) -Ulcer Cleansing Wound Cleanser -Foul Odor after Cleansing No -Anesthetic Used 5% Lidocaine Gel Lower Limb Edema Present Yes Right Calf (cm) 40 40 39.5 Right Ankle (cm) 23.6 24 23.8 Left Calf (cm) 41.3 40.6 40.4 Left Ankle (cm) 25 24.6 25.7 WC - Nurse 2 - General Ulcer CM Notes Start: 06/26/22 10:12 Freq: Status: Active Protocol: Activity Type Activity Date Activity User E-sign Co-sign Detail Recorded Client Recorded Date Recorded By Document 06/26/22 10:43 MW [id number] 06/26/22 10:49 MW Document 07/03/22 10:52 MW [id number] 07/03/22 10:56 MW Document 07/10/22 10:06 MW [id number] 07/10/22 10:11 MW 06/26/22 07/03/22 07/10/22 10:43 10:52 10:06 Wound Center Nurse 2 #4- abdominal cluster -Time 10:43 10:53 10:07 -Correct Patient Yes Yes Yes -Correct Side, Site, Position Yes Yes Yes -Correct Procedure Yes Yes Yes -Procedure Performed Yes Yes Yes -Type of Procedure Debridement Debridement Debridement -Clinical Debridement Subcutaneous Subcutaneous Subcutaneous -Tissue Removed Subcutaneous Subcutaneous Subcutaneous -Post Debridement (cm) - Length 14.0 13.5 13.0 -Post Debridement (cm) - Width 16.0 15.0 15.5 -Post Debridement (cm) - Depth 0.1 0.1 0.1 -Total Square (Post) (cm) 224.00 202.50 201.50 -Area of Debridement (cm) - Length 14.0 13.5 13.0 -Area of Debridement (cm) - Width 16.0 15.0 15.5 -Total Square (Area) (cm) 224.00 202.50 201.50 -Tunneling No No No -Undermining/Tunneling No No No -Circular Undermining No No No -Wound/Ulcer Outcome Not Healed Not Healed Not Healed -Ulcer Cleansing Rinsed/ Rinsed/ Rinsed/ Irrigated with Irrigated with Irrigated with Saline Saline Saline -Foul Odor after Cleansing No No No -Bioengineered Tissue No No No -Bleeding Controlled with Pressure Pressure Pressure -Treatment Response Procedure Procedure Procedure Tolerated Well Tolerated Well Tolerated Well -Offloading No No No -Debridement - Subq, 1st 20sq cm Yes Yes Yes -Debridement, SubQ, ea addt'l 20sq cm 11 10 10 or part thereof #2 LLE cluster -Time 10:45 10:53 10:07 -Correct Patient Yes Yes Yes -Correct Side, Site, Position Yes Yes Yes -Correct Procedure Yes Yes Yes -Procedure Performed No No No -Post Debridement (cm) - Length 0.1 0.1 0.1 -Post Debridement (cm) - Width 0.1 0.1 0.1 -Post Debridement (cm) - Depth 0.1 0.1 0.1 -Total Square (Post) (cm) 0.01 0.01 0.01 -Tunneling No -Undermining/Tunneling No -Circular Undermining No -Wound/Ulcer Outcome Not Healed Not Healed Not Healed #1 RLE cluster -Time 10:48 10:54 10:07 -Correct Patient Yes Yes Yes -Correct Side, Site, Position Yes Yes Yes -Correct Procedure Yes Yes Yes -Procedure Performed No No No -Post Debridement (cm) - Length 0.1 0.1 0.1 -Post Debridement (cm) - Width 0.1 0.1 0.1 -Post Debridement (cm) - Depth 0.1 0.1 0.1 -Total Square (Post) (cm) 0.01 0.01 0.01 -Tunneling No -Undermining/Tunneling No -Circular Undermining No -Wound/Ulcer Outcome Not Healed Not Healed Pain Scale: 0-10 Numeric Is Patient Pain Free? Yes Yes Yes WC - Nurse 3 - General Ulcer D/C NN Start: 06/26/22 10:12 Freq: Status: Active Protocol: Activity Type Activity Date Activity User E-sign Co-sign Detail Recorded Client Recorded Date Recorded By Document 06/26/22 10:59 DL [id number] 06/26/22 11:02 DL Document 07/03/22 10:57 MW [id number] 07/03/22 10:59 MW Document 07/10/22 10:18 DL [id number] 07/10/22 10:22 DL 06/26/22 07/03/22 07/10/22 10:59 10:57 10:18 Wound Care Nurse 3 #4- abdominal cluster -Ulcer Cleansing Rinsed/ Rinsed/ Rinsed/ Irrigated with Irrigated with Irrigated with Saline Saline Saline -Foul Odor after Cleansing No No No -Negative Pressure Wound Therapy N/A -Primary Dressing Applied NonAdherent NonAdherent NonAdherent Contact Layer Contact Layer Contact Layer -Other Dressing collagen Pwder collagen powder Collagen Powder /ABD -Primary Dressing Covered/Secured with Dry Gauze, Dry Gauze, Secured with Secured with Tape Tape -Other Covering ABD ABD pad #2 LLE cluster -Ulcer Cleansing Rinsed/ Not Cleansed Rinsed/ Irrigated with Irrigated with Saline Saline -Foul Odor after Cleansing No No -Negative Pressure Wound Therapy N/A -Primary Dressing Applied NonAdherent NonAdherent Contact Layer, Contact Layer Optilok 6.5x10 -Other Dressing ABD -Primary Dressing Covered/Secured with Dry Gauze & Dry Gauze & Roll Gauze, Roll Gauze, Secured with Secured with Tape Tape -Optilok 6.5x10 1 #1 RLE cluster -Ulcer Cleansing Rinsed/ Not Cleansed Rinsed/ Irrigated with Irrigated with Saline Saline -Foul Odor after Cleansing No No No -Negative Pressure Wound Therapy N/A -Primary Dressing Applied Optilok 6.5x10 NonAdherent Contact Layer -Other Dressing ABD -Primary Dressing Covered/Secured with Dry Gauze & Dry Gauze & Roll Gauze, Roll Gauze, Secured with Secured with Tape Tape -Optilok 6.5x10 1 Right -Lotion applied to leg before No compression wrap -Tubular Bandage Single Layer -Size of Tubigrip Used Size E -Size E ($) 1 Left -Lotion applied to leg before No compression wrap -Tubular Bandage Single Layer -Size of Tubigrip Used Size E -Size E ($) 1 TIFFANIE -Tubular Bandage Single Layer Single Layer -Size of Tubigrip Used Size D Size E -Size D ($) 1 -Size E ($) 1 Treatment Response Procedure Procedure Tolerated Well Tolerated Well Pain Scale: 0-10 Numeric Is Patient Pain Free? Yes Yes Yes Teaching: Wound Center Dressing Your Wound -Person Taught Patient -Teaching Method Discussion -Response to teaching Verbalize understanding WC - Visit Discharge Discharge Condition Stable Stable Ambulatory Status Wheelchair Ambulatory, Wheelchair Transportation ECF Facility Type [facility] Facility Orders Sent Yes Yes Assessment/Plan Assessment/Plan (1) Superficial ulcer of skin: CODE(S): L98.491 - Non-pressure chronic ulcer of skin of other sites limited to breakdown of skin (2) Venous insufficiency of both lower extremities: CODE(S): I87.2 - Venous insufficiency (chronic) (peripheral) (3) Chronic dermatitis: CODE(S): L30.9 - Dermatitis, unspecified (4) Venous insufficiency: CODE(S): I87.2 - Venous insufficiency (chronic) (peripheral) (5) Urticaria: CODE(S): L50.9 - Urticaria, unspecified (6) Skin ulcer of abdominal wall with fat layer exposed: CODE(S): L98.492 - Non-pressure chronic ulcer of skin of other sites with fat layer exposed PLAN: Plan Debridement done as documented above, procedure was well-tolerated. Improving. Continue collagen powder to abdominal ulcers, cover with Adaptic and gauze. Continue Adaptic, superabsorbent dressing, Tubigrip and Kai wrap for compression to bilateral lower extremity. Change daily. Continue leg elevation, adequate protein intake, optimal diabetes control, and other dietary/lifestyle modifications recommended. His questions were answered and he was advised to call with any further questions or concerns. Follow-up with me in 1 week. This note was generated with [employer] dictation software. It may contain incorrect words, spelling, and punctuation that were not noted in checking the note before signing.
[2022-07-17 09:31] VITALS: BP 92/48; PULSE 89; RESP 16; TEMP 35.7; BMI 37.1
--- NOTE | 2022-07-17 12:37 | PCM.WC.PN ---
History of Present Illness Date of Service: 07/17/22 Chief Complaint: Bilateral lower extremity pain, redness and swelling. Abdominal Ulcers. History of Wound: This is a 76 year-old white male who presents to the wound healing center today due to non healing bilateral lower extremity lesions. He states that his concerns have been present for over a year. Was seen at the wound center with no significant improvement and he was subsequently sent to see a Metal Inspector. He states that he was seen weekly and had a Zinc oxide wrap placed again without any improvement. His main concerns are bilateral lower extremity, rash, itching, irritation, redness and swelling. He was sent by his PCP to [facility] where he was seen by ID. He states that he was placed on IV antibiotics but again, he states that he does not believe it made any difference. He denies chills, fever or otherwise feeling of unwell. 06-05-22 He presents with new abdominal wound which he states has been present for at least 10 years. Had been seen at the wound center years ago for this. Never really achieved complete healing and patient also admits that he picks at it as well. Has had some ointment applied at his facility without significant improvement. He feels well otherwise. Progress of Wound: Some improvement in ulcers. Some worsening abdominal girth. Chronic history of ascites, he states that he has had talks about drainage but nothing has been scheduled. Has dialysis sessions Thursday, Thursday and Thursday. Missed his session yesterday. Objective Data Objective Data Vital Signs: Vital Signs Temp Pulse Resp BP Pulse Ox O2 Del Method O2 Flow Rate 96.3 F L 89 16 92/48 L 98 Room Air 3 07/17/22 09:31 07/17/22 09:31 07/17/22 09:31 07/17/22 09:31 06/22/22 00:25 07/17/22 09:31 07/10/22 09:36 Oxygen Flow Rate (L/min) 3 Oxygen Delivery Method Room Air Weight: 230 lb Body Mass Index (BMI) 37.1 Charges/Coding Procedures Integumentary 111xxx-113xx: [id number] Cleopatra subq tissue 20 sq cm/< Add On Codes: 17654 Cleopatra subq tissue add-on (x8 additional square centimeter debrided, please refer to clinical note.) Physical Exam Const General Appearance: cooperative, comfortable and well developed Orientation / Consciousness: awake, oriented to person, oriented to place and oriented to time HEENT normocephalic, head/scalp atraumatic and hearing grossly normal bilaterally Head and Scalp: normal to inspection, normocephalic and atraumatic Eyes General Eye: normal appearance of both eyes Neck full ROM and supple General: normal visual inspection Resp normal respiratory effort Effort and Inspection: able to speak in complete sentences Skin Wounds: wounds noted Neuro oriented x3, CN's II-XII intact bilaterally, moves all extremities and no focal motor deficits Psych mental status grossly normal Appearance: grossly normal Attitude: calm Activity / Motor Behavior: appropriate eye contact Debridement Note Debridement Note Wound debrided: Abdominal cluster Type of Debridement: Excisional debridement Anesthesia Used: 4% Lidocaine Solution Depth: Down to and including healthy tissue Percentage of wound debrided: 100 Instrument Used: 5mm curette Tissue Removed: Slough and devitalized tissue Severity: Fat Layer Exposed Amount of bleeding with debridement: Mild Bleeding Controlled with: Pressure Patient tolerated procedure: Patient tolerated procedure well Post-Debridement Measurements and Additional Note: Post-Debridement Measurements/Treatment - Nurse 1 - General Ulcer Assessment Start: 06/26/22 10:12 Freq: Status: Active Protocol: BROOKE Activity Type Activity Date Activity User E-sign Co-sign Detail Recorded Client Recorded Date Recorded By Document 06/26/22 10:12 [facility] [id number] 06/26/22 10:29 [facility] Document 07/03/22 09:56 DL [id number] 07/03/22 10:13 DL Document 07/10/22 09:36 [facility] [id number] 07/10/22 09:52 [facility] Document 07/17/22 09:31 [facility] [id number] 07/17/22 09:47 [facility] 06/26/22 07/03/22 07/10/22 10:12 09:56 09:36 - Today's Visit Information Type of service Follow-up Visit Follow-up Visit Follow-up Visit (Physician/POWDERED SUGAR PULVERIZER OPERATOR (Physician/POWDERED SUGAR PULVERIZER OPERATOR (Physician/POWDERED SUGAR PULVERIZER OPERATOR ) ) ) Arrival Mode Wheelchair Wheelchair Wheelchair Transfer Assistance None None Other Transfer Assist (Other) 1 Patient Identification Verified (Name & Yes Yes Yes ) Patient Requires Transmission-Based No No Precautions Finger Stick Blood Sugar(mg/dl) (if 149 indicated): Blood Sugar Stated by Patient Height and Weight Body Mass Index (BMI) 37.1 37.1 37.1 BMI Classification Obese Obese Obese Vital Signs Temperature (97.8 F-99.1 F) 95.7 F L 98.1 F 96.9 F L Temperature Source Temporal Temporal Temporal Pulse Rate (60-100) 77 81 81 Pulse Location Monitor Monitor Monitor Respiratory Rate (12-18) 20 H 18 18 Respiratory rate source Observation Observation Observation Oxygen Delivery Method Room Air Nasal Cannula O2 L/MIN (L/min) 3 Blood Pressure (90/60-120/80) 128/79 H 136/61 H 118/74 Blood Pressure Mean (mm Hg) 95 86 88 Source Monitor Monitor Monitor Position Sitting Sitting Blood Pressure Location Left Arm Left Arm History Since Last Visit- (Skip if this is Patient's initial visit) Have you changed medications since your Yes No No last visit? Any new allergies or adverse reactions No No No Had a fall/change in ADL's that may No No No increase risk of falls Signs or symptoms of abuse and/or No No No neglect since last visit Have you been in the hospital since your Yes No No last visit? Has dressing in place as prescribed Yes Yes No Has compression in place as prescribed N/A No Yes Has offloadiing in place as prescribed N/A N/A N/A Experienced any changes in pain level or No No No management Left Footwear Slipper Diabetic Shoe Right Footwear Slipper Diabetic Shoe Other Footwear DOESN'T WEAR DRSGS ORDERED TO LE'S Pain Scale: 0-10 Numeric Is Patient Pain Free? Yes Yes Yes 07/17/22 09:31 WC - Today's Visit Information Type of service Follow-up Visit (Physician/POWDERED SUGAR PULVERIZER OPERATOR ) Arrival Mode Wheelchair Transfer Assistance Other Transfer Assist (Other) 1 Patient Identification Verified (Name & Yes ) Patient Requires Transmission-Based No Precautions Finger Stick Blood Sugar(mg/dl) (if indicated): Blood Sugar Height and Weight Body Mass Index (BMI) 37.1 BMI Classification Obese Vital Signs Temperature (97.8 F-99.1 F) 96.3 F L Temperature Source Temporal Pulse Rate (60-100) 89 Pulse Location Monitor Respiratory Rate (12-18) 16 Respiratory rate source Observation Oxygen Delivery Method Room Air O2 L/MIN (L/min) Blood Pressure (90/60-120/80) 92/48 L Blood Pressure Mean (mm Hg) 62 Source Monitor Position Sitting Blood Pressure Location Right Arm History Since Last Visit- (Skip if this is Patient's initial visit) Have you changed medications since your No last visit? Any new allergies or adverse reactions No Had a fall/change in ADL's that may Yes increase risk of falls Signs or symptoms of abuse and/or No neglect since last visit Have you been in the hospital since your No last visit? Has dressing in place as prescribed Yes Has compression in place as prescribed No Has offloadiing in place as prescribed N/A Experienced any changes in pain level or No management Left Footwear Right Footwear Other Footwear non skid socks tiffanie feet Pain Scale: 0-10 Numeric Is Patient Pain Free? Yes WC - Nurse 1 - General Ulcer Measurement Start: 06/26/22 10:12 Freq: Status: Active Protocol: Activity Type Activity Date Activity User E-sign Co-sign Detail Recorded Client Recorded Date Recorded By Document 06/26/22 10:12 [facility] [id number] 06/26/22 10:29 [facility] Document 07/03/22 09:56 DL [id number] 07/03/22 10:13 DL Document 07/10/22 09:36 [facility] [id number] 07/10/22 09:52 [facility] Document 07/17/22 09:31 [facility] [id number] 07/17/22 09:47 [facility] 06/26/22 07/03/22 07/10/22 10:12 09:56 09:36 Wound Center Nurse 1 #4- abdominal cluster -Combined with other wound No No -Current Size (cm) - Length 16.8 18.5 11.7 -Current Size (cm) - Width 16.4 16.5 16.5 -Current Size (cm) - Depth 0.1 0.1 0.1 -Total Square Cm 275.52 305.25 193.05 -Date of Last Picture (Recall this 06/26/22 field) -Photo Taken Yes Yes -Epithelialization Small 1-33% Small 1-33% -Tunneling No No -Undermining/Tunneling No No -Circular Undermining No No -Exudate Amt Medium Medium Medium -Exudate Type Serosanguineous Serosanguineous Serosanguineous -Wound Margin Distinct, Indistinct, Non Distinct, Outline -Visible Outline Attached Attached -Granulation Amt Medium (34-66%) Medium (34-66%) Large (67-100%) -Granulation Quality Red Frannie Red -Slough/Fibrin Yes Yes -Necrosis Amt Medium (34-66%) Medium (34-66%) Small (1-33%) -Necrotic Tissue Type Adherent Slough Adherent Slough Adherent Slough -Structure Exposed N/A -Texture (Dea-wound Skin Appearance) Assessed, Scarring Assessed, Scarring Scarring -Moisture (Dea-wound Skin Appearance) Assessed Dry/Scaly Assessed -Color (Dea-wound Skin Appearance) Assessed No Abnormality, Assessed Hemosiderin Staining, Mottled -Temperature (Dea-wound Skin No Abnormality No Abnormality No Abnormality Appearance) (Pt Warm) (Pt Warm) (Pt Warm) -Tenderness on Palpation (Dea-wound No No No Skin Appearance) -Ulcer Cleansing Soap and Water Rinsed/ Soap and Water Irrigated with Saline -Foul Odor after Cleansing No No No -Anesthetic Used 4% Lidocaine 5% Lidocaine 4% Lidocaine Solution Gel Solution #2 LLE cluster -Combined with other wound No No -Current Size (cm) - Length 22 0.1 9 -Current Size (cm) - Width 10.5 0.1 19.5 -Current Size (cm) - Depth 0.1 0.1 0.1 -Total Square Cm 231.0 0.01 175.5 -Date of Last Picture (Recall this 06/26/22 field) -Photo Taken Yes No No -Epithelialization None Present None Present -Tunneling No No -Undermining/Tunneling No No -Circular Undermining No No -Exudate Amt Small Small Small -Exudate Type Serous Yellow/Green Serous -Wound Margin Distinct, Indistinct, Non Distinct, Outline -Visible Outline Attached Attached -Granulation Amt Large (67-100%) Large (67-100%) None Present (0 %) -Granulation Quality Frannie Frannie -Slough/Fibrin Yes Yes -Necrosis Amt Small (1-33%) Small (1-33%) Large (67-100%) -Necrotic Tissue Type Adherent Slough Adherent Slough Adherent Slough -Structure Exposed N/A -Texture (Dea-wound Skin Appearance) Assessed No Abnormality, Assessed, Scarring Scarring -Moisture (Dea-wound Skin Appearance) Assessed, Dry/Scaly Assessed,Dry/ Maceration, Scaly Weeping,Dry/ Scaly -Color (Dea-wound Skin Appearance) Assessed Hemosiderin Assessed, Staining Erythema -Temperature (Dea-wound Skin No Abnormality No Abnormality No Abnormality Appearance) (Pt Warm) (Pt Warm) (Pt Warm) -Tenderness on Palpation (Dea-wound No No No Skin Appearance) -Ulcer Cleansing Rinsed/ Rinsed/ Soap and Water Irrigated with Irrigated with Saline Saline -Foul Odor after Cleansing No No No -Anesthetic Used 4% Lidocaine 5% Lidocaine 4% Lidocaine Solution Gel Solution #1 RLE cluster -Combined with other wound No -Current Size (cm) - Length 0 0.1 0.1 -Current Size (cm) - Width 0 0.1 0.1 -Current Size (cm) - Depth 0 0.1 0.1 -Total Square Cm 0 0.01 0.01 -Date of Last Picture (Recall this field) -Photo Taken No -Epithelialization Large 67-100% Large 67-100% -Exudate Amt Medium -Exudate Type Yellow/Green -Wound Margin Indistinct, Non -Visible -Granulation Amt Large (67-100%) -Granulation Quality Frannie -Necrosis Amt Small (1-33%) -Necrotic Tissue Type Adherent Slough -Structure Exposed Fat Layer Exposed -Texture (Dea-wound Skin Appearance) Scarring -Moisture (Dea-wound Skin Appearance) Dry/Scaly -Color (Dea-wound Skin Appearance) Hemosiderin Staining -Temperature (Dea-wound Skin No Abnormality Appearance) (Pt Warm) -Tenderness on Palpation (Dea-wound No Skin Appearance) -Ulcer Cleansing Wound Cleanser -Foul Odor after Cleansing No -Anesthetic Used 5% Lidocaine Gel Lower Limb Edema Present Yes Right Calf (cm) 40 40 39.5 Right Ankle (cm) 23.6 24 23.8 Left Calf (cm) 41.3 40.6 40.4 Left Ankle (cm) 25 24.6 25.7 07/17/22 09:31 Wound Center Nurse 1 #4- abdominal cluster -Combined with other wound No -Current Size (cm) - Length 8.5 -Current Size (cm) - Width 17 -Current Size (cm) - Depth 0.1 -Total Square Cm 144.5 -Date of Last Picture (Recall this 07/17/22 field) -Photo Taken Yes -Epithelialization Small 1-33% -Tunneling No -Undermining/Tunneling No -Circular Undermining No -Exudate Amt Medium -Exudate Type Sanguineous -Wound Margin Flat & Intact -Granulation Amt Large (67-100%) -Granulation Quality Red -Slough/Fibrin Yes -Necrosis Amt Small (1-33%) -Necrotic Tissue Type Adherent Slough -Structure Exposed -Texture (Dea-wound Skin Appearance) Assessed, Scarring -Moisture (Dea-wound Skin Appearance) Assessed -Color (Dea-wound Skin Appearance) Assessed -Temperature (Dea-wound Skin No Abnormality Appearance) (Pt Warm) -Tenderness on Palpation (Dea-wound No Skin Appearance) -Ulcer Cleansing Soap and Water -Foul Odor after Cleansing No -Anesthetic Used 4% Lidocaine Solution #2 LLE cluster -Combined with other wound No -Current Size (cm) - Length 0.1 -Current Size (cm) - Width 0.1 -Current Size (cm) - Depth 0.1 -Total Square Cm 0.01 -Date of Last Picture (Recall this 07/17/22 field) -Photo Taken Yes -Epithelialization -Tunneling -Undermining/Tunneling -Circular Undermining -Exudate Amt -Exudate Type -Wound Margin -Granulation Amt -Granulation Quality -Slough/Fibrin -Necrosis Amt -Necrotic Tissue Type -Structure Exposed -Texture (Dea-wound Skin Appearance) Assessed, Scarring -Moisture (Dea-wound Skin Appearance) Assessed,Dry/ Scaly -Color (Dea-wound Skin Appearance) Assessed -Temperature (Dea-wound Skin No Abnormality Appearance) (Pt Warm) -Tenderness on Palpation (Dea-wound No Skin Appearance) -Ulcer Cleansing -Foul Odor after Cleansing -Anesthetic Used 4% Lidocaine Solution #1 RLE cluster -Combined with other wound No -Current Size (cm) - Length 0.1 -Current Size (cm) - Width 0.1 -Current Size (cm) - Depth 0.1 -Total Square Cm 0.01 -Date of Last Picture (Recall this 07/17/22 field) -Photo Taken Yes -Epithelialization -Exudate Amt -Exudate Type -Wound Margin -Granulation Amt -Granulation Quality -Necrosis Amt -Necrotic Tissue Type -Structure Exposed -Texture (Dea-wound Skin Appearance) Assessed -Moisture (Dea-wound Skin Appearance) Assessed,Dry/ Scaly -Color (Dea-wound Skin Appearance) Assessed -Temperature (Dea-wound Skin No Abnormality Appearance) (Pt Warm) -Tenderness on Palpation (Dea-wound No Skin Appearance) -Ulcer Cleansing -Foul Odor after Cleansing -Anesthetic Used Lower Limb Edema Present Yes Right Calf (cm) 40.5 Right Ankle (cm) 25.5 Left Calf (cm) 41 Left Ankle (cm) 24.5 WC - Nurse 2 - General Ulcer CM Notes Start: 06/26/22 10:12 Freq: Status: Active Protocol: Activity Type Activity Date Activity User E-sign Co-sign Detail Recorded Client Recorded Date Recorded By Document 06/26/22 10:43 MW [id number] 06/26/22 10:49 MW Document 07/03/22 10:52 MW [id number] 07/03/22 10:56 MW Document 07/10/22 10:06 MW [id number] 07/10/22 10:11 MW Document 07/17/22 09:57 MW [id number] 07/17/22 10:05 MW 06/26/22 07/03/22 07/10/22 10:43 10:52 10:06 Wound Center Nurse 2 #4- abdominal cluster -Time 10:43 10:53 10:07 -Correct Patient Yes Yes Yes -Correct Side, Site, Position Yes Yes Yes -Correct Procedure Yes Yes Yes -Procedure Performed Yes Yes Yes -Type of Procedure -Type of Procedure Debridement Debridement Debridement -Clinical Debridement Subcutaneous Subcutaneous Subcutaneous -Tissue Removed Subcutaneous Subcutaneous Subcutaneous -Post Debridement (cm) - Length 14.0 13.5 13.0 -Post Debridement (cm) - Width 16.0 15.0 15.5 -Post Debridement (cm) - Depth 0.1 0.1 0.1 -Total Square (Post) (cm) 224.00 202.50 201.50 -Area of Debridement (cm) - Length 14.0 13.5 13.0 -Area of Debridement (cm) - Width 16.0 15.0 15.5 -Total Square (Area) (cm) 224.00 202.50 201.50 -Tunneling No No No -Undermining/Tunneling No No No -Circular Undermining No No No -Wound/Ulcer Outcome Not Healed Not Healed Not Healed -Ulcer Cleansing Rinsed/ Rinsed/ Rinsed/ Irrigated with Irrigated with Irrigated with Saline Saline Saline -Foul Odor after Cleansing No No No -Bioengineered Tissue No No No -Bleeding Controlled with Pressure Pressure Pressure -Treatment Response Procedure Procedure Procedure Tolerated Well Tolerated Well Tolerated Well -Offloading No No No -Debridement - Subq, 1st 20sq cm Yes Yes Yes -Debridement, SubQ, ea addt'l 20sq cm 11 10 10 or part thereof #2 LLE cluster -Time 10:45 10:53 10:07 -Correct Patient Yes Yes Yes -Correct Side, Site, Position Yes Yes Yes -Correct Procedure Yes Yes Yes -Procedure Performed No No No -Post Debridement (cm) - Length 0.1 0.1 0.1 -Post Debridement (cm) - Width 0.1 0.1 0.1 -Post Debridement (cm) - Depth 0.1 0.1 0.1 -Total Square (Post) (cm) 0.01 0.01 0.01 -Tunneling No -Undermining/Tunneling No -Circular Undermining No -Wound/Ulcer Outcome Not Healed Not Healed Not Healed #1 RLE cluster -Time 10:48 10:54 10:07 -Correct Patient Yes Yes Yes -Correct Side, Site, Position Yes Yes Yes -Correct Procedure Yes Yes Yes -Procedure Performed No No No -Post Debridement (cm) - Length 0.1 0.1 0.1 -Post Debridement (cm) - Width 0.1 0.1 0.1 -Post Debridement (cm) - Depth 0.1 0.1 0.1 -Total Square (Post) (cm) 0.01 0.01 0.01 -Tunneling No -Undermining/Tunneling No -Circular Undermining No -Wound/Ulcer Outcome Not Healed Not Healed Pain Scale: 0-10 Numeric Is Patient Pain Free? Yes Yes Yes 07/17/22 09:57 Wound Center Nurse 2 #4- abdominal cluster -Time 09:59 -Correct Patient Yes -Correct Side, Site, Position Yes -Correct Procedure Yes -Procedure Performed Yes -Type of Procedure Debridement -Type of Procedure -Clinical Debridement Subcutaneous -Tissue Removed Subcutaneous -Post Debridement (cm) - Length 10.5 -Post Debridement (cm) - Width 15.5 -Post Debridement (cm) - Depth 0.1 -Total Square (Post) (cm) 162.75 -Area of Debridement (cm) - Length 10.5 -Area of Debridement (cm) - Width 15.5 -Total Square (Area) (cm) 162.75 -Tunneling No -Undermining/Tunneling No -Circular Undermining No -Wound/Ulcer Outcome Not Healed -Ulcer Cleansing Rinsed/ Irrigated with Saline -Foul Odor after Cleansing No -Bioengineered Tissue No -Bleeding Controlled with Pressure -Treatment Response Procedure Tolerated Well -Offloading No -Debridement - Subq, 1st 20sq cm Yes -Debridement, SubQ, ea addt'l 20sq cm 8 or part thereof #2 LLE cluster -Time 09:59 -Correct Patient Yes -Correct Side, Site, Position Yes -Correct Procedure Yes -Procedure Performed No -Post Debridement (cm) - Length -Post Debridement (cm) - Width -Post Debridement (cm) - Depth -Total Square (Post) (cm) -Tunneling No -Undermining/Tunneling No -Circular Undermining No -Wound/Ulcer Outcome Not Healed #1 RLE cluster -Time 09:59 -Correct Patient Yes -Correct Side, Site, Position Yes -Correct Procedure Yes -Procedure Performed No -Post Debridement (cm) - Length -Post Debridement (cm) - Width -Post Debridement (cm) - Depth -Total Square (Post) (cm) -Tunneling -Undermining/Tunneling -Circular Undermining -Wound/Ulcer Outcome Not Healed Pain Scale: 0-10 Numeric Is Patient Pain Free? No WC - Nurse 3 - General Ulcer D/C NN Start: 06/26/22 10:12 Freq: Status: Active Protocol: Activity Type Activity Date Activity User E-sign Co-sign Detail Recorded Client Recorded Date Recorded By Document 06/26/22 10:59 DL [id number] 06/26/22 11:02 DL Document 07/03/22 10:57 MW [id number] 07/03/22 10:59 MW Document 07/10/22 10:18 DL [id number] 07/10/22 10:22 DL Document 07/17/22 12:09 DL [id number] 07/17/22 12:12 DL 06/26/22 07/03/22 07/10/22 10:59 10:57 10:18 Wound Care Center Nurse 3 #4- abdominal cluster -Ulcer Cleansing Rinsed/ Rinsed/ Rinsed/ Irrigated with Irrigated with Irrigated with Saline Saline Saline -Foul Odor after Cleansing No No No -Negative Pressure Wound Therapy N/A -Primary Dressing Applied NonAdherent NonAdherent NonAdherent Contact Layer Contact Layer Contact Layer -Other Dressing collagen Pwder collagen powder Collagen Powder /ABD -Primary Dressing Covered/Secured with Dry Gauze, Dry Gauze, Secured with Secured with Tape Tape -Other Covering ABD ABD pad #2 LLE cluster -Ulcer Cleansing Rinsed/ Not Cleansed Rinsed/ Irrigated with Irrigated with Saline Saline -Foul Odor after Cleansing No No -Negative Pressure Wound Therapy N/A -Primary Dressing Applied NonAdherent NonAdherent Contact Layer, Contact Layer Optilok 6.5x10 -Other Dressing ABD -Primary Dressing Covered/Secured with Dry Gauze & Dry Gauze & Roll Gauze, Roll Gauze, Secured with Secured with Tape Tape -Optilok 6.5x10 1 #1 RLE cluster -Ulcer Cleansing Rinsed/ Not Cleansed Rinsed/ Irrigated with Irrigated with Saline Saline -Foul Odor after Cleansing No No No -Negative Pressure Wound Therapy N/A -Primary Dressing Applied Optilok 6.5x10 NonAdherent Contact Layer -Other Dressing ABD -Primary Dressing Covered/Secured with Dry Gauze & Dry Gauze & Roll Gauze, Roll Gauze, Secured with Secured with Tape Tape -Optilok 6.5x10 1 Right -Lotion applied to leg before No compression wrap -Tubular Bandage Single Layer -Size of Tubigrip Used Size E -Size E ($) 1 Left -Lotion applied to leg before No compression wrap -Tubular Bandage Single Layer -Size of Tubigrip Used Size E -Size E ($) 1 TIFFANIE -Tubular Bandage Single Layer Single Layer -Size of Tubigrip Used Size D Size E -Size D ($) 1 -Size E ($) 1 Treatment Response Procedure Procedure Tolerated Well Tolerated Well Pain Scale: 0-10 Numeric Is Patient Pain Free? Yes Yes Yes Teaching: Wound Center Dressing Your Wound -Person Taught Patient -Teaching Method Discussion -Response to teaching Verbalize understanding WC - Visit Discharge Discharge Condition Stable Stable Ambulatory Status Wheelchair Ambulatory, Wheelchair Transportation ECF Facility Type Half-Way Care Cut Off [facility] Grader Care Facility Facility Orders Sent Yes Yes 07/17/22 12:09 Wound Care Center Nurse 3 #4- abdominal cluster -Ulcer Cleansing Rinsed/ Irrigated with Saline -Foul Odor after Cleansing No -Negative Pressure Wound Therapy -Primary Dressing Applied Collagen Powder ($), NonAdherent Contact Layer -Other Dressing ABD -Primary Dressing Covered/Secured with Secured with Tape -Other Covering #2 LLE cluster -Ulcer Cleansing Soap and Water -Foul Odor after Cleansing No -Negative Pressure Wound Therapy -Primary Dressing Applied NonAdherent Contact Layer -Other Dressing -Primary Dressing Covered/Secured with Dry Gauze & Roll Gauze -Optilok 6.5x10 #1 RLE cluster -Ulcer Cleansing Soap and Water -Foul Odor after Cleansing No -Negative Pressure Wound Therapy -Primary Dressing Applied NonAdherent Contact Layer -Other Dressing -Primary Dressing Covered/Secured with Dry Gauze & Roll Gauze, Secured with Tape -Optilok 6.5x10 Right -Lotion applied to leg before compression wrap -Tubular Bandage Single Layer -Size of Tubigrip Used Size E -Size E ($) 1 Left -Lotion applied to leg before compression wrap -Tubular Bandage Single Layer -Size of Tubigrip Used Size E -Size E ($) 1 TIFFANIE -Tubular Bandage -Size of Tubigrip Used -Size D ($) -Size E ($) Treatment Response Procedure Tolerated Well Pain Scale: 0-10 Numeric Is Patient Pain Free? Yes Teaching: Wound Center Dressing Your Wound -Person Taught -Teaching Method -Response to teaching WC - Visit Discharge Discharge Condition Stable Ambulatory Status Wheelchair Transportation Facility Type [facility]ader Care Facility Orders Sent Yes Assessment/Plan Assessment/Plan (1) Superficial ulcer of skin: CODE(S): L98.491 - Non-pressure chronic ulcer of skin of other sites limited to breakdown of skin (2) Venous insufficiency of both lower extremities: CODE(S): I87.2 - Venous insufficiency (chronic) (peripheral) (3) Chronic dermatitis: CODE(S): L30.9 - Dermatitis, unspecified (4) Venous insufficiency: CODE(S): I87.2 - Venous insufficiency (chronic) (peripheral) (5) Urticaria: CODE(S): L50.9 - Urticaria, unspecified (6) Skin ulcer of abdominal wall with fat layer exposed: CODE(S): L98.492 - Non-pressure chronic ulcer of skin of other sites with fat layer exposed PLAN: Plan Debridement done as documented above, procedure was well-tolerated. Improving. Continue collagen powder to abdominal ulcers, cover with Adaptic and gauze to abdominal ulcers. Hopefully he gets paracentesis done due to significant ascites. Continue Adaptic, superabsorbent dressing, Tubigrip and Kai wrap for compression to bilateral lower extremity. Change daily. Continue leg elevation, adequate protein intake, optimal diabetes control, and other dietary/lifestyle modifications recommended. His questions were answered and he was advised to call with any further questions or concerns. Follow-up with me in 1 week. This note was generated with [employer] dictation software. It may contain incorrect words, spelling, and punctuation that were not noted in checking the note before signing.
== END 2022-07-22 23:59 | disposition home or self-care (01) ==
LOC: WC 09:15
PROVIDERS: PCP Internal Medicine; Visit Provider Internal Medicine
DX: L98.492 Non-pressure chronic ulcer of skin of other sites with fat layer exposed (principal); L98.491 Non-pressure chronic ulcer of skin of other sites limited to breakdown of skin; I87.2 Venous insufficiency (chronic) (peripheral); L30.9 Dermatitis, unspecified; L50.9 Urticaria, unspecified
CPT/HCPCS: 11042; 11045

== ENCOUNTER → 2022-07-18 | Outpatient (REF) | payer MEDICARE, MEDICAID, SELFPAY ==
[2022-07-18 08:10] LABS: INR Fingerstick 4.8; Prothrombin Time Fingerstick 52.3 SEC (11.7-14.9)
[2022-07-18 08:34] LABS: Prothrombin Time (Protime)PT. 40.2 SECONDS (11.7-14.9)
[2022-07-18 08:53] LABS: International Normalized Ratio 4.2
== END ==
LOC: OLS.SW 05:00
PROVIDERS: PCP Internal Medicine; Visit Provider Family Medicine
DX: Z79.01 Long term (current) use of anticoagulants (principal)
CPT/HCPCS: 36416; 85610

== ENCOUNTER → 2022-07-21 | Outpatient (REF) | payer MEDICARE, MEDICAID, SELFPAY ==
[2022-07-21 09:37] LABS: Anion Gap 9 (5-15); BUN 76 mg/dL (7-18); BUN/Creat Ratio 15.8 RATIO (10-20); Chloride 93 mmol/L (98-107); Creatinine, Serum 4.82 mg/dL (0.70-1.30); EST Glomerular Filtration Rate 13 mL/min (>60); Est Glom Filt Rate - Afr Amer 15 mL/min (>60); Glucose 233 mg/dL (74-106); Phosphorus 3.6 mg/dL (2.5-4.9); Potassium 4.4 mmol/L (3.5-5.1); Sodium Level 132 mmol/L (136-145)
[2022-07-21 09:50] LABS: Hematocrit 29.3 % (40-54); Hemoglobin 8.9 g/dL (13.0-16.5); Mean Corp Hgb Conc 30.4 g/dL (32-36); Mean Corpuscular Hgb 30.2 pg (27.0-32.0); Mean Corpuscular Volume 99.3 fL (80-94); Platelet Count 234 K/mm3 (150-450); RBC Distribution Width CV 14.3 % (11.6-14.6); RBC Distribution Width SD 51.7 fl (35.1-43.9); Red Blood Count 2.95 M/mm3 (4.6-6.2); White Blood Count 10.9 K/mm3 (4.4-11.0)
== END ==
LOC: OLS.SW 05:00
PROVIDERS: PCP Internal Medicine; Visit Provider Family Medicine
DX: E11.22 Type 2 diabetes mellitus with diabetic chronic kidney disease (principal); N18.5 Chronic kidney disease, stage 5
CPT/HCPCS: 36415; 80048; 84100; 85027

== ENCOUNTER → 2022-07-22 | Outpatient (REF) | payer MEDICARE, MEDICAID, SELFPAY ==
[2022-07-22 12:15] LABS: INR Fingerstick 1.6; Prothrombin Time Fingerstick 19.5 SEC (11.7-14.9)
== END ==
LOC: OLS.SW 11:30
PROVIDERS: PCP Internal Medicine; Visit Provider Family Medicine
DX: Z79.01 Long term (current) use of anticoagulants (principal); Z79.899 Other long term (current) drug therapy
CPT/HCPCS: 36416; 85610

== ENCOUNTER → 2022-07-28 | Outpatient (REF) | payer MEDICARE, MEDICAID, SELFPAY ==
[2022-07-28 09:05] LABS: INR Fingerstick 2.1; Prothrombin Time Fingerstick 25.1 SEC (11.7-14.9)
== END ==
LOC: OLS.SW 04:00
PROVIDERS: PCP Internal Medicine; Referring Provider Family Medicine; Visit Provider Family Medicine
DX: Z79.01 Long term (current) use of anticoagulants (principal)
CPT/HCPCS: 36416; 85610

== ENCOUNTER → 2022-08-04 | Outpatient (REF) | payer MEDICARE, MEDICAID, SELFPAY ==
[2022-08-04 07:50] LABS: INR Fingerstick 2.7; Prothrombin Time Fingerstick 31.1 SEC (11.7-14.9)
== END ==
LOC: OLS.SW 04:00
PROVIDERS: PCP Internal Medicine; Referring Provider Family Medicine; Visit Provider Family Medicine
DX: Z79.01 Long term (current) use of anticoagulants (principal)
CPT/HCPCS: 36416; 85610

== ENCOUNTER → 2022-08-05 | Outpatient (REF) | payer MEDICARE, MEDICAID, SELFPAY ==
[2022-08-05 08:15] LABS: Absolute Lymphocyte Count 1.76 X10^3/uL (0.83-4.51); Absolute Neutrophil Count 10.5 X10^3/uL (2.0-7.7); Basophil# 0.13 X10^3/uL; Basophil% 0.9 % (0-1); Eosinophil# 0.26 X10^3/uL; Eosinophils% 1.8 % (0-5); Hematocrit 35.1 % (40-54); Hemoglobin 10.3 g/dL (13.0-16.5); Lymphocyte # 1.76 X10^3/ul (0.83-4.51); Lymphocyte % 12.5 % (19-41); Mean Corp Hgb Conc 29.3 g/dL (32-36); Mean Corpuscular Hgb 31.8 pg (27.0-32.0); Mean Corpuscular Volume 108.3 fL (80-94); Mean Platelet Vol. 10.7 fl (6.2-12.0); Monocyte# 1.17 X10^3/uL; Monocyte% 8.3 % (0-10); NRBC Flagged by Analyzer 0 % (0-5); Neutrophil # 10.52 X10^3/uL (2.7-7.7); Neutrophil % 74.9 % (47-70); Platelet Count 261 K/mm3 (150-450); RBC Distribution Width CV 14.6 % (11.6-14.6); RBC Distribution Width SD 57.4 fl (35.1-43.9); Red Blood Count 3.24 M/mm3 (4.6-6.2); White Blood Count 14.1 K/mm3 (4.4-11.0)
[2022-08-05 08:37] LABS: Anion Gap 10 (5-15); BUN 71 mg/dL (7-18); BUN/Creat Ratio 13.6 RATIO (10-20); Calcium,Total 9.2 mg/dL (8.5-10.1); Chloride 94 mmol/L (98-107); Creatinine, Serum 5.21 mg/dL (0.70-1.30); EST Glomerular Filtration Rate 12 mL/min (>60); Est Glom Filt Rate - Afr Amer 14 mL/min (>60); Glucose 183 mg/dL (74-106); Potassium 4.2 mmol/L (3.5-5.1); Sodium Level 133 mmol/L (136-145)
== END ==
LOC: OLS.SW 05:00
PROVIDERS: PCP Internal Medicine; Visit Provider Family Medicine
DX: N18.9 Chronic kidney disease, unspecified (principal); Z79.01 Long term (current) use of anticoagulants
CPT/HCPCS: 36415; 80048; 85025

== ENCOUNTER → 2022-08-11 | Outpatient (REF) | payer MEDICARE, MEDICAID, SELFPAY ==
[2022-08-11 08:06] LABS: INR Fingerstick 1.5; Prothrombin Time Fingerstick 18.5 SEC (11.7-14.9)
== END ==
LOC: OLS.SW 04:00
PROVIDERS: PCP Internal Medicine; Referring Provider Family Medicine; Visit Provider Family Medicine
DX: Z79.01 Long term (current) use of anticoagulants (principal)
CPT/HCPCS: 36416; 85610

== ENCOUNTER → 2022-08-13 | Outpatient (REF) | payer MEDICARE, MEDICAID, SELFPAY ==
[2022-08-13 09:44] LABS: ALB/GLOB Ratio 0.8 RATIO (0.9-2.4); AST(SGOT) 12 U/L (15-37); Alanine Aminotransfer ALT/SGPT 21 U/L (16-61); Alkaline Phosphatase 94 U/L (45-117); Anion Gap 5 (5-15); BUN 40 mg/dL (7-18); BUN/Creat Ratio 10.9 RATIO (10-20); Calcium,Total 9.5 mg/dL (8.5-10.1); Chloride 92 mmol/L (98-107); Cholesterol 207 mg/dL (200); Creatinine, Serum 3.68 mg/dL (0.70-1.30); EST Glomerular Filtration Rate 17 mL/min (>60); Est Glom Filt Rate - Afr Amer 21 mL/min (>60); Glucose 110 mg/dL (74-106); High Density Lipoprotein 55 mg/dL; Sodium Level 130 mmol/L (136-145); Triglycerides 224 mg/dL; Very Low Density Lipoprotein 45 mg/dL (5-40)
== END ==
LOC: OLS.SW 05:00
PROVIDERS: PCP Internal Medicine; Visit Provider Family Medicine
DX: E11.22 Type 2 diabetes mellitus with diabetic chronic kidney disease (principal); N18.9 Chronic kidney disease, unspecified; Z94.4 Liver transplant status
CPT/HCPCS: 36415; 80053; 80061

== ENCOUNTER 2022-08-14 10:00 | Outpatient (RCR) | payer MEDICARE, MEDICAID, SELFPAY ==
[2022-07-23 00:30] VITALS: BP 92/48; PULSE 89; RESP 16; TEMP 35.7; O2SAT 98; BMI 37.1
[2022-07-24 09:37] VITALS: BP 110/56; PULSE 75; RESP 22; TEMP 36.4; BMI 37.1
--- NOTE | 2022-07-24 12:02 | PCM.WC.PN ---
History of Present Illness Date of Service: 07/24/22 Chief Complaint: Bilateral lower extremity pain, redness and swelling. Abdominal Ulcers. History of Wound: This is a 76 year-old white male who presents to the wound healing center today due to non healing bilateral lower extremity lesions. He states that his concerns have been present for over a year. Was seen at the wound center with no significant improvement and he was subsequently sent to see a Wine Bottle Inspector. He states that he was seen weekly and had a Zinc oxide wrap placed again without any improvement. His main concerns are bilateral lower extremity, rash, itching, irritation, redness and swelling. He was sent by his PCP to [facility] where he was seen by ID. He states that he was placed on IV antibiotics but again, he states that he does not believe it made any difference. He denies chills, fever or otherwise feeling of unwell. 06-05-22 He presents with new abdominal wound which he states has been present for at least 10 years. Had been seen at the wound center years ago for this. Never really achieved complete healing and patient also admits that he picks at it as well. Has had some ointment applied at his facility without significant improvement. He feels well otherwise. Progress of Wound: No new concerns at this time. Stable ulcers. Objective Data Objective Data Vital Signs: Vital Signs Temp Pulse Resp BP Pulse Ox O2 Flow Rate 97.6 F L 75 22 H 110/56 L 98 3 07/24/22 09:37 07/24/22 09:37 07/24/22 09:37 07/24/22 09:37 07/23/22 00:30 07/23/22 00:30 Oxygen Flow Rate (L/min) 3 Weight: 230 lb Body Mass Index (BMI) 37.1 Charges/Coding Procedures Integumentary 111xxx-113xx: [id number] Cleopatra subq tissue 20 sq cm/< Add On Codes: 00838 Cleopatra subq tissue add-on (x7. Additional square centimeter debrided, please refer to clinical note.) Physical Exam Const General Appearance: cooperative, comfortable and well developed Orientation / Consciousness: awake, oriented to person, oriented to place and oriented to time HEENT normocephalic, head/scalp atraumatic and hearing grossly normal bilaterally Head and Scalp: normal to inspection, normocephalic and atraumatic Eyes General Eye: normal appearance of both eyes Neck full ROM and supple General: normal visual inspection Resp normal respiratory effort Effort and Inspection: able to speak in complete sentences Skin Wounds: wounds noted Neuro oriented x3, CN's II-XII intact bilaterally, moves all extremities and no focal motor deficits Psych mental status grossly normal Appearance: grossly normal Attitude: calm Activity / Motor Behavior: appropriate eye contact Debridement Note Debridement Note Wound debrided: Abdominal cluster Type of Debridement: Excisional debridement Anesthesia Used: 4% Lidocaine Solution Depth: Down to and including healthy tissue Percentage of wound debrided: 100 Instrument Used: 5mm curette Tissue Removed: Slough and devitalized tissue Severity: Fat Layer Exposed Amount of bleeding with debridement: Mild Bleeding Controlled with: Pressure Patient tolerated procedure: Patient tolerated procedure well Post-Debridement Measurements and Additional Note: Post-Debridement Measurements/Treatment WC - Nurse 1 - General Ulcer Assessment Start: 07/24/22 09:37 Freq: Status: Active Protocol: BROOKE Activity Type Activity Date Activity User E-sign Co-sign Detail Recorded Client Recorded Date Recorded By Document 07/24/22 09:37 DL [id number] 07/24/22 09:50 DL 07/24/22 09:37 WC - Today's Visit Information Type of service Follow-up Visit (Physician/FLUID DYNAMICIST ) Arrival Mode Ambulatory, Wheelchair Transfer Assist (Other) x1 Patient Identification Verified (Name & Yes ) Patient Requires Transmission-Based No Precautions Finger Stick Blood Sugar(mg/dl) (if 190 indicated): Blood Sugar Stated by Patient Height and Weight Body Mass Index (BMI) 37.1 BMI Classification Obese Vital Signs Temperature (97.8 F-99.1 F) 97.6 F L Temperature Source Temporal Pulse Rate (60-100) 75 Pulse Location Monitor Respiratory Rate (12-18) 22 H Respiratory rate source Observation Blood Pressure (90/60-120/80) 110/56 L Blood Pressure Mean (mm Hg) 74 Source Monitor History Since Last Visit- (Skip if this is Patient's initial visit) Have you changed medications since your No last visit? Any new allergies or adverse reactions No Had a fall/change in ADL's that may No increase risk of falls Signs or symptoms of abuse and/or No neglect since last visit Has dressing in place as prescribed Yes Has compression in place as prescribed Yes Has offloadiing in place as prescribed Yes Experienced any changes in pain level or No management Pain Scale: 0-10 Numeric Is Patient Pain Free? Yes WC - Nurse 1 - General Ulcer Measurement Start: 07/24/22 09:37 Freq: Status: Active Protocol: Activity Type Activity Date Activity User E-sign Co-sign Detail Recorded Client Recorded Date Recorded By Document 07/24/22 09:37 DL [id number] 07/24/22 09:50 DL 07/24/22 09:37 Wound Center Nurse 1 #4- abdominal cluster -Current Size (cm) - Length 6 -Current Size (cm) - Width 16 -Current Size (cm) - Depth 0.1 -Total Square Cm 96 -Photo Taken No -Exudate Amt Medium -Exudate Type Serosanguineous -Wound Margin Distinct, Outline Attached -Granulation Amt Large (67-100%) -Granulation Quality Lyle,Red -Necrosis Amt None Present (0 %) -Structure Exposed N/A -Texture (Dea-wound Skin Appearance) Scarring -Moisture (Dea-wound Skin Appearance) No Abnormality -Color (Dea-wound Skin Appearance) No Abnormality -Temperature (Dea-wound Skin No Abnormality Appearance) (Pt Warm) -Tenderness on Palpation (Dea-wound No Skin Appearance) -Ulcer Cleansing Rinsed/ Irrigated with Saline -Foul Odor after Cleansing No -Anesthetic Used 5% Lidocaine Gel #2 LLE cluster -Current Size (cm) - Length 0.1 -Current Size (cm) - Width 0.1 -Current Size (cm) - Depth 0.1 -Total Square Cm 0.01 -Photo Taken No -Exudate Amt None Present -Wound Margin Indistinct, Non -Visible -Granulation Amt Large (67-100%) -Granulation Quality Pale,Lyle -Structure Exposed N/A -Texture (Dea-wound Skin Appearance) Scarring,Rash -Color (Dea-wound Skin Appearance) Hemosiderin Staining -Temperature (Dea-wound Skin No Abnormality Appearance) (Pt Warm) -Tenderness on Palpation (Dea-wound No Skin Appearance) -Ulcer Cleansing Soap and Water -Foul Odor after Cleansing No #1 RLE cluster -Current Size (cm) - Length 0.1 -Current Size (cm) - Width 0.1 -Current Size (cm) - Depth 0.1 -Total Square Cm 0.01 -Photo Taken No -Exudate Amt None Present -Wound Margin Indistinct, Non -Visible -Granulation Amt Large (67-100%) -Granulation Quality Pale,Lyle,Red -Necrosis Amt None Present (0 %) -Structure Exposed N/A -Texture (Dea-wound Skin Appearance) Scarring,Rash -Moisture (Dea-wound Skin Appearance) Dry/Scaly -Color (Dea-wound Skin Appearance) Hemosiderin Staining -Temperature (Dea-wound Skin No Abnormality Appearance) (Pt Warm) -Tenderness on Palpation (Dea-wound No Skin Appearance) -Ulcer Cleansing Rinsed/ Irrigated with Saline -Foul Odor after Cleansing No Right Calf (cm) 41.6 Right Ankle (cm) 25.3 Right Foot (cm) 37.4 Left Calf (cm) 23.1 WC - Nurse 2 - General Ulcer CM Notes Start: 07/24/22 09:37 Freq: Status: Active Protocol: Activity Type Activity Date Activity User E-sign Co-sign Detail Recorded Client Recorded Date Recorded By Document 07/24/22 10:11 MW [id number] 07/24/22 10:15 MW Edit Result 07/24/22 10:11 MW (1) [id number] 07/24/22 10:16 MW (1) #4- abdominal cluster - Debridement, SubQ, ea addt'l 20sq cm => 7 or part thereof 07/24/22 10:11 Wound Center Nurse 2 #4- abdominal cluster -Time 10:14 -Correct Patient Yes -Correct Side, Site, Position Yes -Correct Procedure Yes -Procedure Performed Yes -Type of Procedure Debridement -Clinical Debridement Subcutaneous -Tissue Removed Subcutaneous -Post Debridement (cm) - Length 9.0 -Post Debridement (cm) - Width 16.0 -Post Debridement (cm) - Depth 0.1 -Total Square (Post) (cm) 144.00 -Area of Debridement (cm) - Length 9.0 -Area of Debridement (cm) - Width 16.0 -Total Square (Area) (cm) 144.00 -Tunneling No -Undermining/Tunneling No -Circular Undermining No -Wound/Ulcer Outcome Not Healed -Ulcer Cleansing Rinsed/ Irrigated with Saline -Foul Odor after Cleansing No -Bioengineered Tissue No -Bleeding Controlled with Pressure -Treatment Response Procedure Tolerated Well -Offloading No -Debridement - Subq, 1st 20sq cm Yes -Debridement, SubQ, ea addt'l 20sq cm 7 or part thereof #2 LLE cluster -Time 10:15 -Correct Patient Yes -Correct Side, Site, Position Yes -Correct Procedure Yes -Procedure Performed No -Post Debridement (cm) - Length 0.1 -Post Debridement (cm) - Width 0.1 -Post Debridement (cm) - Depth 0.1 -Total Square (Post) (cm) 0.01 -Circular Undermining No #1 RLE cluster -Time 10:15 -Correct Patient Yes -Correct Side, Site, Position Yes -Correct Procedure Yes -Procedure Performed No -Post Debridement (cm) - Length 0.1 -Post Debridement (cm) - Width 0.1 -Post Debridement (cm) - Depth 0.1 -Total Square (Post) (cm) 0.01 -Wound/Ulcer Outcome Not Healed -Foul Odor after Cleansing No -Bioengineered Tissue No -Bleeding Controlled with NA Pain Scale: 0-10 Numeric Is Patient Pain Free? Yes WC - Nurse 3 - General Ulcer D/C NN Start: 07/24/22 09:37 Freq: Status: Active Protocol: Activity Type Activity Date Activity User E-sign Co-sign Detail Recorded Client Recorded Date Recorded By Document 07/24/22 11:29 DL [id number] 07/24/22 11:32 DL 07/24/22 11:29 Wound Care Center Nurse 3 #4- abdominal cluster -Ulcer Cleansing Rinsed/ Irrigated with Saline -Foul Odor after Cleansing No -Primary Dressing Applied Collagen Powder ($), NonAdherent Contact Layer -Primary Dressing Covered/Secured with Dry Gauze, Secured with Tape #2 LLE cluster -Ulcer Cleansing Rinsed/ Irrigated with Saline -Primary Dressing Applied NonAdherent Contact Layer -Primary Dressing Covered/Secured with Dry Gauze & Roll Gauze, Secured with Tape #1 RLE cluster -Ulcer Cleansing Rinsed/ Irrigated with Saline -Foul Odor after Cleansing No -Primary Dressing Applied NonAdherent Contact Layer -Primary Dressing Covered/Secured with Dry Gauze & Roll Gauze, Secured with Tape Left -Tubular Bandage Single Layer -Size of Tubigrip Used Size E -Size E ($) 1 Right -Tubular Bandage Single Layer -Size of Tubigrip Used Size E -Size E ($) 1 Treatment Response Procedure Tolerated Well Pain Scale: 0-10 Numeric Is Patient Pain Free? Yes WC - Visit Discharge Discharge Condition Stable Ambulatory Status Ambulatory, Wheelchair Transportation ECF trans Facility Type [facility] Care Facility Orders Sent Yes Assessment/Plan Assessment/Plan (1) Superficial ulcer of skin: CODE(S): L98.491 - Non-pressure chronic ulcer of skin of other sites limited to breakdown of skin (2) Venous insufficiency of both lower extremities: CODE(S): I87.2 - Venous insufficiency (chronic) (peripheral) (3) Chronic dermatitis: CODE(S): L30.9 - Dermatitis, unspecified (4) Venous insufficiency: CODE(S): I87.2 - Venous insufficiency (chronic) (peripheral) (5) Urticaria: CODE(S): L50.9 - Urticaria, unspecified (6) Skin ulcer of abdominal wall with fat layer exposed: CODE(S): L98.492 - Non-pressure chronic ulcer of skin of other sites with fat layer exposed PLAN: Plan Debridement done as documented above, procedure was well-tolerated. Improving. Continue collagen powder to abdominal ulcers, cover with Adaptic and gauze to abdominal ulcers. Hopefully he gets paracentesis done due to significant ascites. Continue Adaptic, superabsorbent dressing, Tubigrip and Kai wrap for compression to bilateral lower extremity. Change daily. Continue leg elevation, adequate protein intake, optimal diabetes control, and other dietary/lifestyle modifications recommended. His questions were answered and he was advised to call with any further questions or concerns. Follow-up with me in 1 week. This note was generated with [employer] software. It may contain incorrect words, spelling, and punctuation that were not noted in checking the note before signing.
[2022-07-31 09:22] VITALS: BP 81/36; PULSE 79; RESP 22; TEMP 36.3; BMI 37.1
[2022-07-31 09:50] LABS: Bedside Glucose 201 mg/dL (74-106)
--- NOTE | 2022-07-31 10:04 | PCM.WC.PN ---
History of Present Illness Date of Service: 07/31/22 Chief Complaint: Bilateral lower extremity pain, redness and swelling. Abdominal Ulcers. History of Wound: This is a 76 year-old white male who presents to the wound healing center today due to non healing bilateral lower extremity lesions. He states that his concerns have been present for over a year. Was seen at the wound center with no significant improvement and he was subsequently sent to see a Urinalysis Technician. He states that he was seen weekly and had a Zinc oxide wrap placed again without any improvement. His main concerns are bilateral lower extremity, rash, itching, irritation, redness and swelling. He was sent by his PCP to [facility] where he was seen by ID. He states that he was placed on IV antibiotics but again, he states that he does not believe it made any difference. He denies chills, fever or otherwise feeling of unwell. 06-05-22 He presents with new abdominal wound which he states has been present for at least 10 years. Had been seen at the wound center years ago for this. Never really achieved complete healing and patient also admits that he picks at it as well. Has had some ointment applied at his facility without significant improvement. He feels well otherwise. Progress of Wound: Increased crusting/dried of blood noted on his abdominal ulcers. He states that he has been picking and scratching prior to his changes. Typically removes dressing before nurses come in to change it. Came in feeling lightheaded today. Initial blood pressure on evaluation was 81/36, repeat at 89/54. Had some fluid and subsequent repeat came up to 98/46 mmHg. End-stage renal disease on dialysis, had a session yesterday. Objective Data Objective Data Vital Signs: Vital Signs Temp Pulse Resp BP Pulse Ox O2 Del Method O2 Flow Rate 97.4 F L 79 22 H 81/36 L 98 Nasal Cannula 2 07/31/22 09:22 07/31/22 09:22 07/31/22 09:22 07/31/22 09:22 07/23/22 00:30 07/31/22 09:22 07/31/22 09:22 Oxygen Flow Rate (L/min) 2 Oxygen Delivery Method Nasal Cannula Weight: 230 lb Body Mass Index (BMI) 37.1 Lab / Micro Data Labs: Laboratory Results - last 24 hr 07/31/22 09:16: POC Glucose 201 H Charges/Coding Procedures Integumentary 111xxx-113xx: 54947 Cleopatra subq tissue 20 sq cm/< Add On Codes: 68929 Cleopatra subq tissue add-on (x6. Additional square centimeter debrided, please refer to clinical note.) Physical Exam Const General Appearance: cooperative, comfortable and well developed Orientation / Consciousness: awake, oriented to person, oriented to place and oriented to time HEENT normocephalic, head/scalp atraumatic and hearing grossly normal bilaterally Head and Scalp: normal to inspection, normocephalic and atraumatic Eyes General Eye: normal appearance of both eyes Neck full ROM and supple General: normal visual inspection Resp normal respiratory effort Effort and Inspection: able to speak in complete sentences Skin Wounds: wounds noted Neuro oriented x3, CN's II-XII intact bilaterally, moves all extremities and no focal motor deficits Psych mental status grossly normal Appearance: grossly normal Attitude: calm Activity / Motor Behavior: appropriate eye contact Debridement Note Debridement Note Wound debrided: Abdominal cluster Type of Debridement: Excisional debridement Anesthesia Used: 5% Lidocaine Gel Depth: Down to and including healthy tissue Percentage of wound debrided: 100 Instrument Used: 5mm curette Tissue Removed: Slough and devitalized tissue Severity: Fat Layer Exposed Amount of bleeding with debridement: Mild Bleeding Controlled with: Pressure Patient tolerated procedure: Patient tolerated procedure well Post-Debridement Measurements and Additional Note: Post-Debridement Measurements/Treatment - Nurse 1 - General Ulcer Assessment Start: 07/24/22 09:37 Freq: Status: Active Protocol: ILENE.EMILY Activity Type Activity Date Activity User E-sign Co-sign Detail Recorded Client Recorded Date Recorded By Document 07/24/22 09:37 DL [id number] 07/24/22 09:50 DL Document 07/31/22 09:22 DL [id number] 07/31/22 09:27 DL 07/24/22 07/31/22 09:37 09:22 - Today's Visit Information Type of service Follow-up Visit Follow-up Visit (Physician/BRAND PROTECTION MANAGER (Physician/BRAND PROTECTION MANAGER ) ) Arrival Mode Ambulatory, Wheelchair Wheelchair Transfer Assistance Manual Transfer Assist (Other) x1 x2 Patient Identification Verified (Name & Yes Yes ) Patient Requires Transmission-Based No No Precautions Finger Stick Blood Sugar(mg/dl) (if 190 201 indicated): Blood Sugar Stated by Stated by Patient Patient Height and Weight Body Mass Index (BMI) 37.1 37.1 BMI Classification Obese Obese Vital Signs Temperature (97.8 F-99.1 F) 97.6 F L 97.4 F L Temperature Source Temporal Temporal Pulse Rate (60-100) 75 79 Pulse Location Monitor Monitor Respiratory Rate (12-18) 22 H 22 H Respiratory rate source Observation Observation Oxygen Delivery Method Nasal Cannula O2 L/MIN (L/min) 2 Blood Pressure (90/60-120/80) 110/56 L 81/36 L Blood Pressure Mean (mm Hg) 74 51 Source Monitor Monitor History Since Last Visit- (Skip if this is Patient's initial visit) Have you changed medications since your No No last visit? Any new allergies or adverse reactions No No Had a fall/change in ADL's that may No No increase risk of falls Signs or symptoms of abuse and/or No No neglect since last visit Have you been in the hospital since your No last visit? Has dressing in place as prescribed Yes Yes Has compression in place as prescribed Yes Yes Has offloadiing in place as prescribed Yes N/A Experienced any changes in pain level or No No management Left Footwear Regular Shoe Right Footwear Regular Shoe Pain Scale: 0-10 Numeric Is Patient Pain Free? Yes Yes WC - Nurse 1 - General Ulcer Measurement Start: 07/24/22 09:37 Freq: Status: Active Protocol: Activity Type Activity Date Activity User E-sign Co-sign Detail Recorded Client Recorded Date Recorded By Document 07/24/22 09:37 DL [id number] 07/24/22 09:50 DL Document 07/31/22 09:22 DL [id number] 07/31/22 09:27 DL 07/24/22 07/31/22 09:37 09:22 Wound Center Nurse 1 #2 LLE cluster -Current Size (cm) - Length 0.1 0 -Current Size (cm) - Width 0.1 0 -Current Size (cm) - Depth 0.1 0 -Total Square Cm 0.01 0 -Photo Taken No Yes -Exudate Amt None Present None Present -Wound Margin Indistinct, Non Indistinct, Non -Visible -Visible -Granulation Amt Large (67-100%) Large (67-100%) -Granulation Quality Pale,South English South English -Necrosis Amt None Present (0 %) -Structure Exposed N/A N/A -Texture (Dea-wound Skin Appearance) Scarring,Rash Scarring -Moisture (Dea-wound Skin Appearance) Dry/Scaly -Color (Dea-wound Skin Appearance) Hemosiderin No Abnormality Staining -Temperature (Dea-wound Skin No Abnormality No Abnormality Appearance) (Pt Warm) (Pt Warm) -Tenderness on Palpation (Dea-wound No No Skin Appearance) -Ulcer Cleansing Soap and Water Soap and Water -Foul Odor after Cleansing No No #1 RLE cluster -Current Size (cm) - Length 0.1 0 -Current Size (cm) - Width 0.1 0 -Current Size (cm) - Depth 0.1 0 -Total Square Cm 0.01 0 -Photo Taken No Yes -Exudate Amt None Present None Present -Wound Margin Indistinct, Non Indistinct, Non -Visible -Visible -Granulation Amt Large (67-100%) Large (67-100%) -Granulation Quality Pale,South English,Red Pale,South English -Necrosis Amt None Present (0 None Present (0 %) %) -Structure Exposed N/A N/A -Texture (Dea-wound Skin Appearance) Scarring,Rash Scarring -Moisture (Dea-wound Skin Appearance) Dry/Scaly Dry/Scaly -Color (Dea-wound Skin Appearance) Hemosiderin No Abnormality Staining -Temperature (Dea-wound Skin No Abnormality No Abnormality Appearance) (Pt Warm) (Pt Warm) -Tenderness on Palpation (Dea-wound No No Skin Appearance) -Ulcer Cleansing Rinsed/ Soap and Water Irrigated with Saline -Foul Odor after Cleansing No No #4- abdominal cluster -Current Size (cm) - Length 6 10.9 -Current Size (cm) - Width 16 16 -Current Size (cm) - Depth 0.1 0.1 -Total Square Cm 96 174.4 -Photo Taken No No -Exudate Amt Medium Small -Exudate Type Serosanguineous Serosanguineous -Wound Margin Distinct, Indistinct, Non Outline -Visible Attached -Granulation Amt Large (67-100%) Medium (34-66%) -Granulation Quality South English,Red Pale,South English -Necrosis Amt None Present (0 Medium (34-66%) %) -Necrotic Tissue Type Adherent Slough -Structure Exposed N/A N/A -Texture (Dea-wound Skin Appearance) Scarring Scarring -Moisture (Dea-wound Skin Appearance) No Abnormality No Abnormality -Color (Dea-wound Skin Appearance) No Abnormality No Abnormality -Temperature (Dea-wound Skin No Abnormality No Abnormality Appearance) (Pt Warm) (Pt Warm) -Tenderness on Palpation (Dea-wound No No Skin Appearance) -Ulcer Cleansing Rinsed/ Soap and Water Irrigated with Saline -Foul Odor after Cleansing No No -Anesthetic Used 5% Lidocaine 5% Lidocaine Gel Gel Right Calf (cm) 41.6 38 Right Ankle (cm) 25.3 22.9 Right Foot (cm) 37.4 Left Calf (cm) 23.1 35 Left Ankle (cm) 23.1 WC - Nurse 2 - General Ulcer CM Notes Start: 07/24/22 09:37 Freq: Status: Active Protocol: Activity Type Activity Date Activity User E-sign Co-sign Detail Recorded Client Recorded Date Recorded By Document 07/24/22 10:11 MW [id number] 07/24/22 10:15 MW Edit Result 07/24/22 10:11 MW (1) [id number] 07/24/22 10:16 MW Document 07/31/22 09:33 MW [id number] 07/31/22 09:43 MW (1) #4- abdominal cluster - Debridement, SubQ, ea addt'l 20sq cm => 7 or part thereof 07/24/22 07/31/22 10:11 09:33 Wound Center Nurse 2 #2 LLE cluster -Time 10:15 09:35 -Correct Patient Yes Yes -Correct Side, Site, Position Yes Yes -Correct Procedure Yes Yes -Procedure Performed No No -Post Debridement (cm) - Length 0.1 0 -Post Debridement (cm) - Width 0.1 0 -Post Debridement (cm) - Depth 0.1 0 -Total Square (Post) (cm) 0.01 0 -Circular Undermining No -Wound/Ulcer Outcome Healed- Epithelialized #1 RLE cluster -Time 10:15 09:35 -Correct Patient Yes Yes -Correct Side, Site, Position Yes Yes -Correct Procedure Yes Yes -Procedure Performed No No -Post Debridement (cm) - Length 0.1 0 -Post Debridement (cm) - Width 0.1 0 -Post Debridement (cm) - Depth 0.1 0 -Total Square (Post) (cm) 0.01 0 -Wound/Ulcer Outcome Not Healed Healed- Epithelialized -Foul Odor after Cleansing No -Bioengineered Tissue No -Bleeding Controlled with NA #4- abdominal cluster -Time 10:14 09:35 -Correct Patient Yes Yes -Correct Side, Site, Position Yes Yes -Correct Procedure Yes Yes -Procedure Performed Yes Yes -Type of Procedure Debridement Debridement -Clinical Debridement Subcutaneous Subcutaneous -Tissue Removed Subcutaneous Subcutaneous -Post Debridement (cm) - Length 9.0 8.0 -Post Debridement (cm) - Width 16.0 17.0 -Post Debridement (cm) - Depth 0.1 0.1 -Total Square (Post) (cm) 144.00 136.00 -Area of Debridement (cm) - Length 9.0 8.0 -Area of Debridement (cm) - Width 16.0 17.0 -Total Square (Area) (cm) 144.00 136.00 -Tunneling No No -Undermining/Tunneling No No -Circular Undermining No No -Wound/Ulcer Outcome Not Healed Not Healed -Ulcer Cleansing Rinsed/ Rinsed/ Irrigated with Irrigated with Saline Saline -Foul Odor after Cleansing No No -Bioengineered Tissue No No -Bleeding Controlled with Pressure Pressure -Treatment Response Procedure Procedure Tolerated Well Tolerated Well -Offloading No No -Debridement - Subq, 1st 20sq cm Yes Yes -Debridement, SubQ, ea addt'l 20sq cm 7 6 or part thereof Pain Scale: 0-10 Numeric Is Patient Pain Free? Yes Yes WC - Nurse 3 - General Ulcer D/C NN Start: 07/24/22 09:37 Freq: Status: Active Protocol: Activity Type Activity Date Activity User E-sign Co-sign Detail Recorded Client Recorded Date Recorded By Document 07/24/22 11:29 DL [id number] 07/24/22 11:32 DL Document 07/31/22 09:46 DL [id number] 07/31/22 09:53 DL 07/24/22 07/31/22 11:29 09:46 Wound Care Center Nurse 3 #2 LLE cluster -Ulcer Cleansing Rinsed/ Irrigated with Saline -Primary Dressing Applied NonAdherent Contact Layer -Primary Dressing Covered/Secured with Dry Gauze & Roll Gauze, Secured with Tape #1 RLE cluster -Ulcer Cleansing Rinsed/ Irrigated with Saline -Foul Odor after Cleansing No -Primary Dressing Applied NonAdherent Contact Layer -Primary Dressing Covered/Secured with Dry Gauze & Roll Gauze, Secured with Tape #4- abdominal cluster -Ulcer Cleansing Rinsed/ Rinsed/ Irrigated with Irrigated with Saline Saline -Foul Odor after Cleansing No No -Primary Dressing Applied Collagen Powder Fibracol Plus ($), 4x4,NonAdherent NonAdherent Contact Layer Contact Layer -Primary Dressing Covered/Secured with Dry Gauze, Dry Gauze, Secured with Secured with Tape Tape -Fibracol Plus 4x4 1 bart -Tubular Bandage Single Layer -Size of Tubigrip Used Size E -Size E ($) 1 Left -Tubular Bandage Single Layer -Size of Tubigrip Used Size E -Size E ($) 1 Right -Tubular Bandage Single Layer -Size of Tubigrip Used Size E -Size E ($) 1 Treatment Response Procedure Procedure Tolerated Well Tolerated Well Pain Scale: 0-10 Numeric Is Patient Pain Free? Yes Yes WC - Visit Discharge Discharge Condition Stable Stable Ambulatory Status Ambulatory, Wheelchair Wheelchair Transportation ECF trans ECF Trans Facility Type [facility] Care Facility Facility Orders Sent Yes Yes Assessment/Plan Assessment/Plan (1) Superficial ulcer of skin: CODE(S): L98.491 - Non-pressure chronic ulcer of skin of other sites limited to breakdown of skin (2) Venous insufficiency of both lower extremities: CODE(S): I87.2 - Venous insufficiency (chronic) (peripheral) (3) Chronic dermatitis: CODE(S): L30.9 - Dermatitis, unspecified (4) Venous insufficiency: CODE(S): I87.2 - Venous insufficiency (chronic) (peripheral) (5) Urticaria: CODE(S): L50.9 - Urticaria, unspecified (6) Skin ulcer of abdominal wall with fat layer exposed: CODE(S): L98.492 - Non-pressure chronic ulcer of skin of other sites with fat layer exposed PLAN: Plan Debridement done as documented above, procedure was well-tolerated. Increased bleeding and crusting noted today. As above he admits that he has been picking and scratching. Switch to Fibracol, cover with Adaptic and gauze. He was advised to keep his ulcers covered at all times. Dressing to be changed only by nursing staff at his facility. He voiced understanding. Continue Adaptic, superabsorbent dressing, Tubigrip and Kai wrap for compression to bilateral lower extremity. Change daily. Continue leg elevation, adequate protein intake, optimal diabetes control, and other dietary/lifestyle modifications recommended. His questions were answered and he was advised to call with any further questions or concerns. Follow-up with me in 1 week. This note was generated with [employer] dictation software. It may contain incorrect words, spelling, and punctuation that were not noted in checking the note before signing.
[2022-08-07 09:24] VITALS: BP 124/61; PULSE 75; RESP 16; TEMP 35.6; BMI 37.1
--- NOTE | 2022-08-07 09:51 | PCM.WC.PN ---
History of Present Illness Date of Service: 08/07/22 Chief Complaint: Bilateral lower extremity pain, redness and swelling. Abdominal Ulcers. History of Wound: This is a 76 year-old white male who presents to the wound healing center today due to non healing bilateral lower extremity lesions. He states that his concerns have been present for over a year. Was seen at the wound center with no significant improvement and he was subsequently sent to see a Regional [employer]. He states that he was seen weekly and had a Zinc oxide wrap placed again without any improvement. His main concerns are bilateral lower extremity, rash, itching, irritation, redness and swelling. He was sent by his PCP to [facility] where he was seen by ID. He states that he was placed on IV antibiotics but again, he states that he does not believe it made any difference. He denies chills, fever or otherwise feeling of unwell. 06-05-22 He presents with new abdominal wound which he states has been present for at least 10 years. Had been seen at the wound center years ago for this. Never really achieved complete healing and patient also admits that he picks at it as well. Has had some ointment applied at his facility without significant improvement. He feels well otherwise. Progress of Wound: Stable. No new concerns at this time. Switched to Fibracol at his last visit with recommendations made for dressing changes as well. Objective Data Objective Data Vital Signs: Vital Signs Temp Pulse Resp BP Pulse Ox O2 Del Method O2 Flow Rate 96.1 F L 75 16 124/61 H 98 Room Air 2 08/07/22 09:24 08/07/22 09:24 08/07/22 09:24 08/07/22 09:24 07/23/22 00:30 08/07/22 09:24 07/31/22 09:22 Oxygen Flow Rate (L/min) 2 Oxygen Delivery Method Room Air Weight: 230 lb Body Mass Index (BMI) 37.1 Charges/Coding Procedures Integumentary 111xxx-113xx: 80381 Cle[place]atra subq tissue 20 sq cm/< Add On Codes: 69297 Cleopatra subq tissue add-on (x6 Additional square centimeter debrided, please refer to clinical note.) Physical Exam Const General Appearance: cooperative, comfortable and well developed Orientation / Consciousness: awake, oriented to person, oriented to place and oriented to time HEENT normocephalic, head/scalp atraumatic and hearing grossly normal bilaterally Head and Scalp: normal to inspection, normocephalic and atraumatic Eyes General Eye: normal appearance of both eyes Neck full ROM and supple General: normal visual inspection Resp normal respiratory effort Effort and Inspection: able to speak in complete sentences Skin Wounds: wounds noted Neuro oriented x3, CN's II-XII intact bilaterally, moves all extremities and no focal motor deficits Psych mental status grossly normal Appearance: grossly normal Attitude: calm Activity / Motor Behavior: appropriate eye contact Debridement Note Debridement Note Wound debrided: Abdominal cluster Type of Debridement: Excisional debridement Anesthesia Used: 5% Lidocaine Gel Depth: Down to and including healthy tissue Percentage of wound debrided: 100 Instrument Used: 5mm curette Tissue Removed: Slough and devitalized tissue Severity: Fat Layer Exposed Amount of bleeding with debridement: Mild Bleeding Controlled with: Pressure Patient tolerated procedure: Patient tolerated procedure well Post-Debridement Measurements and Additional Note: Post-Debridement Measurements/Treatment - Nurse 1 - General Ulcer Assessment Start: 07/24/22 09:37 Freq: Status: Active Protocol: BROOKE Activity Type Activity Date Activity User E-sign Co-sign Detail Recorded Client Recorded Date Recorded By Document 07/24/22 09:37 DL [id number] 07/24/22 09:50 DL Document 07/31/22 09:22 DL [id number] 07/31/22 09:27 DL Document 08/07/22 09:24 [facility] [id number] 08/07/22 09:33 [facility] 07/24/22 07/31/22 08/07/22 09:37 09:22 09:24 - Today's Visit Information Type of service Follow-up Visit Follow-up Visit Follow-up Visit (Physician/[employer] (Physician/[employer] (Physician/[employer] ) ) ) Arrival Mode Ambulatory, Wheelchair Wheelchair Wheelchair Transfer Assistance Manual Other Transfer Assist (Other) x1 x2 2 STAND BY Patient Identification Verified (Name & Yes Yes Yes ) Patient Requires Transmission-Based No No Precautions Finger Stick Blood Sugar(mg/dl) (if 190 201 indicated): Blood Sugar Stated by Stated by Patient Patient Height and Weight Body Mass Index (BMI) 37.1 37.1 37.1 BMI Classification Obese Obese Obese Vital Signs Temperature (97.8 F-99.1 F) 97.6 F L 97.4 F L 96.1 F L Temperature Source Temporal Temporal Temporal Pulse Rate (60-100) 75 79 75 Pulse Location Monitor Monitor Monitor Respiratory Rate (12-18) 22 H 22 H 16 Respiratory rate source Observation Observation Observation Oxygen Delivery Method Nasal Cannula Room Air O2 L/MIN (L/min) 2 Blood Pressure (90/60-120/80) 110/56 L 81/36 L 124/61 H Blood Pressure Mean (mm Hg) 74 51 82 Source Monitor Monitor Monitor Position Sitting Blood Pressure Location Right Forearm History Since Last Visit- (Skip if this is Patient's initial visit) Have you changed medications since your No No No last visit? Any new allergies or adverse reactions No No No Had a fall/change in ADL's that may No No No increase risk of falls Signs or symptoms of abuse and/or No No No neglect since last visit Have you been in the hospital since your No No last visit? Has dressing in place as prescribed Yes Yes Yes Has compression in place as prescribed Yes Yes N/A Has offloadiing in place as prescribed Yes N/A N/A Experienced any changes in pain level or No No No management Left Footwear Regular Shoe Diabetic Shoe Right Footwear Regular Shoe Diabetic Shoe Pain Scale: 0-10 Numeric Is Patient Pain Free? Yes Yes Yes - Nurse 1 - General Ulcer Measurement Start: 07/24/22 09:37 Freq: Status: Active Protocol: Activity Type Activity Date Activity User E-sign Co-sign Detail Recorded Client Recorded Date Recorded By Document 07/24/22 09:37 DL [id number] 07/24/22 09:50 DL Document 07/31/22 09:22 DL [id number] 07/31/22 09:27 DL Edit Result 07/31/22 09:22 DL (1) [id number] 07/31/22 11:51 DL Document 08/07/22 09:24 BMF [id number] 08/07/22 09:33 BMF (1) #4- abdominal cluster - Wound Comment(s) => Pt lightheaded and dizzy upon transfering from to bed today. stated not feeling good at all today. BP, SPo2 and BS all checked. BP 81/36, BS 201 and SPO2 90%. Resting in bed, O2 applied at 3L, stated feeling alittle better. Dr. Lilian dominguez, Stated maybe from his Dialysis yesterday, given some water to sip on during his appt. Pt states feeling alittle better. Dishcharged back to [facility]. 07/24/22 07/31/22 08/07/22 09:37 09:22 09:24 Wound Center Nurse 1 #2 LLE cluster -Current Size (cm) - Length 0.1 0 -Current Size (cm) - Width 0.1 0 -Current Size (cm) - Depth 0.1 0 -Total Square Cm 0.01 0 -Photo Taken No Yes -Exudate Amt None Present None Present -Wound Margin Indistinct, Non Indistinct, Non -Visible -Visible -Granulation Amt Large (67-100%) Large (67-100%) -Granulation Quality Pale,[place] -Necrosis Amt None Present (0 %) -Structure Exposed N/A N/A -Texture (Dea-wound Skin Appearance) Scarring,Rash Scarring -Moisture (Dea-wound Skin Appearance) Dry/Scaly -Color (Dea-wound Skin Appearance) Hemosiderin No Abnormality Staining -Temperature (Dea-wound Skin No Abnormality No Abnormality Appearance) (Pt Warm) (Pt Warm) -Tenderness on Palpation (Dea-wound No No Skin Appearance) -Ulcer Cleansing Soap and Water Soap and Water -Foul Odor after Cleansing No No #1 RLE cluster -Current Size (cm) - Length 0.1 0 -Current Size (cm) - Width 0.1 0 -Current Size (cm) - Depth 0.1 0 -Total Square Cm 0.01 0 -Photo Taken No Yes -Exudate Amt None Present None Present -Wound Margin Indistinct, Non Indistinct, Non -Visible -Visible -Granulation Amt Large (67-100%) Large (67-100%) -Granulation Quality Pale,[place],Red Pale,[place] -Necrosis Amt None Present (0 None Present (0 %) %) -Structure Exposed N/A N/A -Texture (Dea-wound Skin Appearance) Scarring,Rash Scarring -Moisture (Dea-wound Skin Appearance) Dry/Scaly Dry/Scaly -Color (Dea-wound Skin Appearance) Hemosiderin No Abnormality Staining -Temperature (Dea-wound Skin No Abnormality No Abnormality Appearance) (Pt Warm) (Pt Warm) -Tenderness on Palpation (Dea-wound No No Skin Appearance) -Ulcer Cleansing Rinsed/ Soap and Water Irrigated with Saline -Foul Odor after Cleansing No No #4- abdominal cluster -Combined with other wound No -Current Size (cm) - Length 6 10.9 12 -Current Size (cm) - Width 16 16 25.7 -Current Size (cm) - Depth 0.1 0.1 0.1 -Total Square Cm 96 174.4 308.4 -Date of Last Picture (Recall this 08/07/22 field) -Photo Taken No No Yes -Epithelialization Small 1-33% -Tunneling No -Undermining/Tunneling No -Circular Undermining No -Exudate Amt Medium Small Medium -Exudate Type Serosanguineous Serosanguineous Serosanguineous -Wound Margin Distinct, Indistinct, Non Distinct, Outline -Visible Outline Attached Attached -Granulation Amt Large (67-100%) Medium (34-66%) Medium (34-66%) -Granulation Quality [place],Red Pale,[place] Red -Slough/Fibrin Yes -Necrosis Amt None Present (0 Medium (34-66%) Medium (34-66%) %) -Necrotic Tissue Type Adherent Slough Adherent Slough -Structure Exposed N/A N/A -Texture (Dea-wound Skin Appearance) Scarring Scarring Assessed, Scarring -Moisture (Dea-wound Skin Appearance) No Abnormality No Abnormality Assessed -Color (Dea-wound Skin Appearance) No Abnormality No Abnormality Assessed -Temperature (Dea-wound Skin No Abnormality No Abnormality No Abnormality Appearance) (Pt Warm) (Pt Warm) (Pt Warm) -Tenderness on Palpation (Dea-wound No No No Skin Appearance) -Ulcer Cleansing Rinsed/ Soap and Water Rinsed/ Irrigated with Irrigated with Saline Saline -Foul Odor after Cleansing No No No -Anesthetic Used 5% Lidocaine 5% Lidocaine 5% Lidocaine Gel Gel Gel -Wound Comment(s) Pt lightheaded and dizzy upon transfering from to bed today. stated not feeling good at all today. BP, SPo2 and BS all checked. BP 81 /36, BS 201 and SPO2 90%. Resting in bed, O2 applied at 3L, stated feeling alittle better. Dr. Lilian dominguez, Stated maybe from his Dialysis yesterday, given some water to sip on during his appt. Pt states feeling alittle better . Dishcharged back to [facility]. Right Calf (cm) 41.6 38 Right Ankle (cm) 25.3 22.9 Right Foot (cm) 37.4 Left Calf (cm) 23.1 35 Left Ankle (cm) 23.1 WC - Nurse 2 - General Ulcer CM Notes Start: 07/24/22 09:37 Freq: Status: Active Protocol: Activity Type Activity Date Activity User E-sign Co-sign Detail Recorded Client Recorded Date Recorded By Document 07/24/22 10:11 MW [id number] 07/24/22 10:15 MW Edit Result 07/24/22 10:11 MW (1) [id number] 07/24/22 10:16 MW Document 07/31/22 09:33 MW [id number] 07/31/22 09:43 MW Document 08/07/22 09:43 MW [id number] 08/07/22 09:47 MW (1) #4- abdominal cluster - Debridement, SubQ, ea addt'l 20sq cm => 7 or part thereof 07/24/22 07/31/22 08/07/22 10:11 09:33 09:43 Wound Center Nurse 2 #2 LLE cluster -Time 10:15 09:35 -Correct Patient Yes Yes -Correct Side, Site, Position Yes Yes -Correct Procedure Yes Yes -Procedure Performed No No -Post Debridement (cm) - Length 0.1 0 -Post Debridement (cm) - Width 0.1 0 -Post Debridement (cm) - Depth 0.1 0 -Total Square (Post) (cm) 0.01 0 -Circular Undermining No -Wound/Ulcer Outcome Healed- Epithelialized #1 RLE cluster -Time 10:15 09:35 -Correct Patient Yes Yes -Correct Side, Site, Position Yes Yes -Correct Procedure Yes Yes -Procedure Performed No No -Post Debridement (cm) - Length 0.1 0 -Post Debridement (cm) - Width 0.1 0 -Post Debridement (cm) - Depth 0.1 0 -Total Square (Post) (cm) 0.01 0 -Wound/Ulcer Outcome Not Healed Healed- Epithelialized -Foul Odor after Cleansing No -Bioengineered Tissue No -Bleeding Controlled with NA #4- abdominal cluster -Time 10:14 09:35 09:44 -Correct Patient Yes Yes Yes -Correct Side, Site, Position Yes Yes Yes -Correct Procedure Yes Yes Yes -Procedure Performed Yes Yes Yes -Type of Procedure Debridement Debridement Debridement -Clinical Debridement Subcutaneous Subcutaneous Subcutaneous -Tissue Removed Subcutaneous Subcutaneous Subcutaneous -Post Debridement (cm) - Length 9.0 8.0 9.2 -Post Debridement (cm) - Width 16.0 17.0 14.5 -Post Debridement (cm) - Depth 0.1 0.1 0.1 -Total Square (Post) (cm) 144.00 136.00 133.40 -Area of Debridement (cm) - Length 9.0 8.0 9.2 -Area of Debridement (cm) - Width 16.0 17.0 14.5 -Total Square (Area) (cm) 144.00 136.00 133.40 -Tunneling No No No -Undermining/Tunneling No No No -Circular Undermining No No No -Wound/Ulcer Outcome Not Healed Not Healed Not Healed -Ulcer Cleansing Rinsed/ Rinsed/ Rinsed/ Irrigated with Irrigated with Irrigated with Saline Saline Saline -Foul Odor after Cleansing No No No -Bioengineered Tissue No No No -Bleeding Controlled with Pressure Pressure Pressure -Treatment Response Procedure Procedure Procedure Tolerated Well Tolerated Well Tolerated Well -Offloading No No No -Debridement - Subq, 1st 20sq cm Yes Yes Yes -Debridement, SubQ, ea addt'l 20sq cm 7 6 6 or part thereof Pain Scale: 0-10 Numeric Is Patient Pain Free? Yes Yes Yes WC - Nurse 3 - General Ulcer D/C NN Start: 07/24/22 09:37 Freq: Status: Active Protocol: Activity Type Activity Date Activity User E-sign Co-sign Detail Recorded Client Recorded Date Recorded By Document 07/24/22 11:29 DL [id number] 07/24/22 11:32 DL Document 07/31/22 09:46 DL [id number] 07/31/22 09:53 DL 07/24/22 07/31/22 11:29 09:46 Wound Care Center Nurse 3 #2 LLE cluster -Ulcer Cleansing Rinsed/ Irrigated with Saline -Primary Dressing Applied NonAdherent Contact Layer -Primary Dressing Covered/Secured with Dry Gauze & Roll Gauze, Secured with Tape #1 RLE cluster -Ulcer Cleansing Rinsed/ Irrigated with Saline -Foul Odor after Cleansing No -Primary Dressing Applied NonAdherent Contact Layer -Primary Dressing Covered/Secured with Dry Gauze & Roll Gauze, Secured with Tape #4- abdominal cluster -Ulcer Cleansing Rinsed/ Rinsed/ Irrigated with Irrigated with Saline Saline -Foul Odor after Cleansing No No -Primary Dressing Applied Collagen Powder Fibracol Plus ($), 4x4,NonAdherent NonAdherent Contact Layer Contact Layer -Primary Dressing Covered/Secured with Dry Gauze, Dry Gauze, Secured with Secured with Tape Tape -Fibracol Plus 4x4 1 bart -Tubular Bandage Single Layer -Size of Tubigrip Used Size E -Size E ($) 1 Left -Tubular Bandage Single Layer -Size of Tubigrip Used Size E -Size E ($) 1 Right -Tubular Bandage Single Layer -Size of Tubigrip Used Size E -Size E ($) 1 Treatment Response Procedure Procedure Tolerated Well Tolerated Well Pain Scale: 0-10 Numeric Is Patient Pain Free? Yes Yes WC - Visit Discharge Discharge Condition Stable Stable Ambulatory Status Ambulatory, Wheelchair Wheelchair Transportation ECF trans ECF Trans Facility Type [facility] Care Facility Facility Orders Sent Yes Yes Assessment/Plan Assessment/Plan (1) Superficial ulcer of skin: CODE(S): L98.491 - Non-pressure chronic ulcer of skin of other sites limited to breakdown of skin (2) Venous insufficiency of both lower extremities: CODE(S): I87.2 - Venous insufficiency (chronic) (peripheral) (3) Chronic dermatitis: CODE(S): L30.9 - Dermatitis, unspecified (4) Venous insufficiency: CODE(S): I87.2 - Venous insufficiency (chronic) (peripheral) (5) Urticaria: CODE(S): L50.9 - Urticaria, unspecified (6) Skin ulcer of abdominal wall with fat layer exposed: CODE(S): L98.492 - Non-pressure chronic ulcer of skin of other sites with fat layer exposed PLAN: Plan Debridement done as documented above, procedure was well-tolerated. Stable. No new concerns at this time. Continue Fibracol, cover with Adaptic and ABD. He was advised to keep his ulcers covered at all times. Dressing to be changed only by nursing staff at his facility. He voiced understanding. Continue leg elevation, adequate protein intake, optimal diabetes control, and other dietary/lifestyle modifications recommended. His questions were answered and he was advised to call with any further questions or concerns. Follow-up with me in 1 week. This note was generated with [employer] dictation software. It may contain incorrect words, spelling, and punctuation that were not noted in checking the note before signing.
[2022-08-14 10:06] VITALS: BP 116/96; PULSE 79; RESP 20; BMI 37.1
--- NOTE | 2022-08-14 11:26 | PCM.WC.PN ---
History of Present Illness Date of Service: 08/14/22 Chief Complaint: Bilateral lower extremity pain, redness and swelling. Abdominal Ulcers. History of Wound: This is a 76 year-old white male who presents to the wound healing center today due to non healing bilateral lower extremity lesions. He states that his concerns have been present for over a year. Was seen at the wound center with no significant improvement and he was subsequently sent to see a Financing Analyst. He states that he was seen weekly and had a Zinc oxide wrap placed again without any improvement. His main concerns are bilateral lower extremity, rash, itching, irritation, redness and swelling. He was sent by his PCP to [facility] where he was seen by ID. He states that he was placed on IV antibiotics but again, he states that he does not believe it made any difference. He denies chills, fever or otherwise feeling of unwell. 06-05-22 He presents with new abdominal wound which he states has been present for at least 10 years. Had been seen at the wound center years ago for this. Never really achieved complete healing and patient also admits that he picks at it as well. Has had some ointment applied at his facility without significant improvement. He feels well otherwise. Progress of Wound: Some improvement noted this week. No new concerns at this time. Objective Data Objective Data Vital Signs: Vital Signs Temp Pulse Resp BP Pulse Ox O2 Del Method O2 Flow Rate 96.1 F L 79 20 H 116/96 H 98 Nasal Cannula 3 08/07/22 09:24 08/14/22 10:06 08/14/22 10:06 08/14/22 10:06 07/23/22 00:30 08/14/22 10:06 08/14/22 10:06 Oxygen Flow Rate (L/min) 3 Oxygen Delivery Method Nasal Cannula Weight: 230 lb Body Mass Index (BMI) 37.1 Charges/Coding Procedures Integumentary 111xxx-113xx: 92392 Cleopatra subq tissue 20 sq cm/< Add On Codes: 21750 Cleopatra subq tissue add-on (x6. Additional square centimeter debrided, please refer to clinical note.) Physical Exam Const General Appearance: cooperative, comfortable and well developed Orientation / Consciousness: awake, oriented to person, oriented to place and oriented to time HEENT normocephalic, head/scalp atraumatic and hearing grossly normal bilaterally Head and Scalp: normal to inspection, normocephalic and atraumatic Eyes General Eye: normal appearance of both eyes Neck full ROM and supple General: normal visual inspection Resp normal respiratory effort Effort and Inspection: able to speak in complete sentences Skin Wounds: wounds noted Neuro oriented x3, CN's II-XII intact bilaterally, moves all extremities and no focal motor deficits Psych mental status grossly normal Appearance: grossly normal Attitude: calm Activity / Motor Behavior: appropriate eye contact Debridement Note Debridement Note Wound debrided: Abdominal cluster Type of Debridement: Excisional debridement Anesthesia Used: 5% Lidocaine Gel Depth: Down to and including healthy tissue Percentage of wound debrided: 100 Instrument Used: 5mm curette Tissue Removed: Slough and devitalized tissue Severity: Fat Layer Exposed Amount of bleeding with debridement: Mild Bleeding Controlled with: Pressure Patient tolerated procedure: Patient tolerated procedure well Post-Debridement Measurements and Additional Note: Post-Debridement Measurements/Treatment - Nurse 1 - General Ulcer Assessment Start: 07/24/22 09:37 Freq: Status: Active Protocol: BROOKE Activity Type Activity Date Activity User E-sign Co-sign Detail Recorded Client Recorded Date Recorded By Document 07/24/22 09:37 DL [id number] 07/24/22 09:50 DL Document 07/31/22 09:22 [id number] 07/31/22 09:27 DL Document 08/07/22 09:24 [facility] [id number] 08/07/22 09:33 [facility] Document 08/14/22 10:06 [facility] [id number] 08/14/22 10:14 [facility] 07/24/22 07/31/22 08/07/22 09:37 09:22 09:24 - Today's Visit Information Type of service Follow-up Visit Follow-up Visit Follow-up Visit (Physician/IN HOME NANNY (Physician/IN HOME NANNY (Physician/IN HOME NANNY ) ) ) Arrival Mode Ambulatory, Wheelchair Wheelchair Wheelchair Transfer Assistance Manual Other Transfer Assist (Other) x1 x2 2 STAND BY Patient Identification Verified (Name & Yes Yes Yes ) Patient Requires Transmission-Based No No Precautions Finger Stick Blood Sugar(mg/dl) (if 190 201 indicated): Blood Sugar Stated by Stated by Patient Patient Height and Weight Body Mass Index (BMI) 37.1 37.1 37.1 BMI Classification Obese Obese Obese Vital Signs Temperature (97.8 F-99.1 F) 97.6 F L 97.4 F L 96.1 F L Temperature Source Temporal Temporal Temporal Pulse Rate (60-100) 75 79 75 Pulse Location Monitor Monitor Monitor Respiratory Rate (12-18) 22 H 22 H 16 Respiratory rate source Observation Observation Observation Oxygen Delivery Method Nasal Cannula Room Air O2 L/MIN (L/min) 2 Blood Pressure (90/60-120/80) 110/56 L 81/36 L 124/61 H Blood Pressure Mean (mm Hg) 74 51 82 Source Monitor Monitor Monitor Position Sitting Blood Pressure Location Right Forearm History Since Last Visit- (Skip if this is Patient's initial visit) Have you changed medications since your No No No last visit? Any new allergies or adverse reactions No No No Had a fall/change in ADL's that may No No No increase risk of falls Signs or symptoms of abuse and/or No No No neglect since last visit Have you been in the hospital since your No No last visit? Has dressing in place as prescribed Yes Yes Yes Has compression in place as prescribed Yes Yes N/A Has offloadiing in place as prescribed Yes N/A N/A Experienced any changes in pain level or No No No management Left Footwear Regular Shoe Diabetic Shoe Right Footwear Regular Shoe Diabetic Shoe Pain Scale: 0-10 Numeric Is Patient Pain Free? Yes Yes Yes 08/14/22 10:06 WC - Today's Visit Information Type of service Follow-up Visit (Physician/IN HOME NANNY ) Arrival Mode Wheelchair Transfer Assistance Other Transfer Assist (Other) stand by Patient Identification Verified (Name & Yes ) Patient Requires Transmission-Based No Precautions Finger Stick Blood Sugar(mg/dl) (if indicated): Blood Sugar Height and Weight Body Mass Index (BMI) 37.1 BMI Classification Obese Vital Signs Temperature (97.8 F-99.1 F) Temperature Source Pulse Rate (60-100) 79 Pulse Location Monitor Respiratory Rate (12-18) 20 H Respiratory rate source Observation Oxygen Delivery Method Nasal Cannula O2 L/MIN (L/min) 3 Blood Pressure (90/60-120/80) 116/96 H Blood Pressure Mean (mm Hg) 102 Source Monitor Position Sitting Blood Pressure Location Right Arm History Since Last Visit- (Skip if this is Patient's initial visit) Have you changed medications since your No last visit? Any new allergies or adverse reactions No Had a fall/change in ADL's that may No increase risk of falls Signs or symptoms of abuse and/or No neglect since last visit Have you been in the hospital since your No last visit? Has dressing in place as prescribed Yes Has compression in place as prescribed N/A Has offloadiing in place as prescribed N/A Experienced any changes in pain level or No management Left Footwear Regular Shoe Right Footwear Regular Shoe Pain Scale: 0-10 Numeric Is Patient Pain Free? Yes - Nurse 1 - General Ulcer Measurement Start: 07/24/22 09:37 Freq: Status: Active Protocol: Activity Type Activity Date Activity User E-sign Co-sign Detail Recorded Client Recorded Date Recorded By Document 07/24/22 09:37 DL [id number] 07/24/22 09:50 DL Document 07/31/22 09:22 DL [id number] 07/31/22 09:27 DL Edit Result 07/31/22 09:22 DL (1) [id number] 07/31/22 11:51 DL Document 08/07/22 09:24 BMF [id number] 08/07/22 09:33 BMF Document 08/14/22 10:06 BMF [id number] 08/14/22 10:14 BMF (1) #4- abdominal cluster - Wound Comment(s) => Pt lightheaded and dizzy upon transfering from to bed today. stated not feeling good at all today. BP, SPo2 and BS all checked. BP 81/36, BS 201 and SPO2 90%. Resting in bed, O2 applied at 3L, stated feeling alittle better. Dr. Lilian dominguez, Stated maybe from his Dialysis yesterday, given some water to sip on during his appt. Pt states feeling alittle better. [facility]ish[facility] 07/24/22 07/31/22 08/07/22 09:37 09:22 09:24 Wound Center Nurse 1 #2 LLE cluster -Current Size (cm) - Length 0.1 0 -Current Size (cm) - Width 0.1 0 -Current Size (cm) - Depth 0.1 0 -Total Square Cm 0.01 0 -Photo Taken No Yes -Exudate Amt None Present None Present -Wound Margin Indistinct, Non Indistinct, Non -Visible -Visible -Granulation Amt Large (67-100%) Large (67-100%) -Granulation Quality Pale,[place] -Necrosis Amt None Present (0 %) -Structure Exposed N/A N/A -Texture (Dea-wound Skin Appearance) Scarring,Rash Scarring -Moisture (Dea-wound Skin Appearance) Dry/Scaly -Color (Dea-wound Skin Appearance) Hemosiderin No Abnormality Staining -Temperature (Dea-wound Skin No Abnormality No Abnormality Appearance) (Pt Warm) (Pt Warm) -Tenderness on Palpation (Dea-wound No No Skin Appearance) -Ulcer Cleansing Soap and Water Soap and Water -Foul Odor after Cleansing No No #1 RLE cluster -Current Size (cm) - Length 0.1 0 -Current Size (cm) - Width 0.1 0 -Current Size (cm) - Depth 0.1 0 -Total Square Cm 0.01 0 -Photo Taken No Yes -Exudate Amt None Present None Present -Wound Margin Indistinct, Non Indistinct, Non -Visible -Visible -Granulation Amt Large (67-100%) Large (67-100%) -Granulation Quality Pale,[place],Red Pale,[place] -Necrosis Amt None Present (0 None Present (0 %) %) -Structure Exposed N/A N/A -Texture (Dea-wound Skin Appearance) Scarring,Rash Scarring -Moisture (Dea-wound Skin Appearance) Dry/Scaly Dry/Scaly -Color (Dea-wound Skin Appearance) Hemosiderin No Abnormality Staining -Temperature (Dea-wound Skin No Abnormality No Abnormality Appearance) (Pt Warm) (Pt Warm) -Tenderness on Palpation (Dea-wound No No Skin Appearance) -Ulcer Cleansing Rinsed/ Soap and Water Irrigated with Saline -Foul Odor after Cleansing No No #4- abdominal cluster -Combined with other wound No -Current Size (cm) - Length 6 10.9 12 -Current Size (cm) - Width 16 16 25.7 -Current Size (cm) - Depth 0.1 0.1 0.1 -Total Square Cm 96 174.4 308.4 -Date of Last Picture (Recall this 08/07/22 field) -Photo Taken No No Yes -Epithelialization Small 1-33% -Tunneling No -Undermining/Tunneling No -Circular Undermining No -Exudate Amt Medium Small Medium -Exudate Type Serosanguineous Serosanguineous Serosanguineous -Wound Margin Distinct, Indistinct, Non Distinct, Outline -Visible Outline Attached Attached -Granulation Amt Large (67-100%) Medium (34-66%) Medium (34-66%) -Granulation Quality [place],Red Pale,[place] Red -Slough/Fibrin Yes -Necrosis Amt None Present (0 Medium (34-66%) Medium (34-66%) %) -Necrotic Tissue Type Adherent Slough Adherent Slough -Structure Exposed N/A N/A -Texture (Dea-wound Skin Appearance) Scarring Scarring Assessed, Scarring -Moisture (Dea-wound Skin Appearance) No Abnormality No Abnormality Assessed -Color (Dea-wound Skin Appearance) No Abnormality No Abnormality Assessed -Temperature (Dea-wound Skin No Abnormality No Abnormality No Abnormality Appearance) (Pt Warm) (Pt Warm) (Pt Warm) -Tenderness on Palpation (Dea-wound No No No Skin Appearance) -Ulcer Cleansing Rinsed/ Soap and Water Rinsed/ Irrigated with Irrigated with Saline Saline -Foul Odor after Cleansing No No No -Anesthetic Used 5% Lidocaine 5% Lidocaine 5% Lidocaine Gel Gel Gel -Wound Comment(s) Pt lightheaded and dizzy upon transfering from to bed today. stated not feeling good at all today. BP, SPo2 and BS all checked. BP 81 /36, BS 201 and SPO2 90%. Resting in bed, O2 applied at 3L, stated feeling alittle better. Dr. Lilian dominguez, Stated maybe from his Dialysis yesterday, given some water to sip on during his appt. Pt states feeling alittle better . Dishcharged back to [facility]. Right Calf (cm) 41.6 38 Right Ankle (cm) 25.3 22.9 Right Foot (cm) 37.4 Left Calf (cm) 23.1 35 Left Ankle (cm) 23.1 08/14/22 10:06 Wound Center Nurse 1 #2 LLE cluster -Current Size (cm) - Length -Current Size (cm) - Width -Current Size (cm) - Depth -Total Square Cm -Photo Taken -Exudate Amt -Wound Margin -Granulation Amt -Granulation Quality -Necrosis Amt -Structure Exposed -Texture (Dea-wound Skin Appearance) -Moisture (Dea-wound Skin Appearance) -Color (Dea-wound Skin Appearance) -Temperature (Dea-wound Skin Appearance) -Tenderness on Palpation (Dea-wound Skin Appearance) -Ulcer Cleansing -Foul Odor after Cleansing #1 RLE cluster -Current Size (cm) - Length -Current Size (cm) - Width -Current Size (cm) - Depth -Total Square Cm -Photo Taken -Exudate Amt -Wound Margin -Granulation Amt -Granulation Quality -Necrosis Amt -Structure Exposed -Texture (Dea-wound Skin Appearance) -Moisture (Dea-wound Skin Appearance) -Color (Dea-wound Skin Appearance) -Temperature (Dea-wound Skin Appearance) -Tenderness on Palpation (Dea-wound Skin Appearance) -Ulcer Cleansing -Foul Odor after Cleansing #4- abdominal cluster -Combined with other wound No -Current Size (cm) - Length 8.1 -Current Size (cm) - Width 15.3 -Current Size (cm) - Depth 0.1 -Total Square Cm 123.93 -Date of Last Picture (Recall this 08/14/22 field) -Photo Taken Yes -Epithelialization Small 1-33% -Tunneling No -Undermining/Tunneling No -Circular Undermining No -Exudate Amt Small -Exudate Type Serosanguineous -Wound Margin Distinct, Outline Attached -Granulation Amt Medium (34-66%) -Granulation Quality Red -Slough/Fibrin Yes -Necrosis Amt Medium (34-66%) -Necrotic Tissue Type Adherent Slough -Structure Exposed -Texture (Dea-wound Skin Appearance) Assessed, Scarring -Moisture (Dea-wound Skin Appearance) Assessed -Color (Dea-wound Skin Appearance) Assessed -Temperature (Dea-wound Skin No Abnormality Appearance) (Pt Warm) -Tenderness on Palpation (Dea-wound No Skin Appearance) -Ulcer Cleansing Soap and Water -Foul Odor after Cleansing No -Anesthetic Used 4% Lidocaine Solution -Wound Comment(s) Right Calf (cm) Right Ankle (cm) Right Foot (cm) Left Calf (cm) Left Ankle (cm) WC - Nurse 2 - General Ulcer CM Notes Start: 07/24/22 09:37 Freq: Status: Active Protocol: Activity Type Activity Date Activity User E-sign Co-sign Detail Recorded Client Recorded Date Recorded By Document 07/24/22 10:11 MW [id number] 07/24/22 10:15 MW Edit Result 07/24/22 10:11 MW (1) [id number] 07/24/22 10:16 MW Document 07/31/22 09:33 MW [id number] 07/31/22 09:43 MW Document 08/07/22 09:43 MW [id number] 08/07/22 09:47 MW Document 08/14/22 10:28 MW [id number] 08/14/22 10:31 MW (1) #4- abdominal cluster - Debridement, SubQ, ea addt'l 20sq cm => 7 or part thereof 07/24/22 07/31/22 08/07/22 10:11 09:33 09:43 Wound Center Nurse 2 #2 LLE cluster -Time 10:15 09:35 -Correct Patient Yes Yes -Correct Side, Site, Position Yes Yes -Correct Procedure Yes Yes -Procedure Performed No No -Post Debridement (cm) - Length 0.1 0 -Post Debridement (cm) - Width 0.1 0 -Post Debridement (cm) - Depth 0.1 0 -Total Square (Post) (cm) 0.01 0 -Circular Undermining No -Wound/Ulcer Outcome Healed- Epithelialized #1 RLE cluster -Time 10:15 09:35 -Correct Patient Yes Yes -Correct Side, Site, Position Yes Yes -Correct Procedure Yes Yes -Procedure Performed No No -Post Debridement (cm) - Length 0.1 0 -Post Debridement (cm) - Width 0.1 0 -Post Debridement (cm) - Depth 0.1 0 -Total Square (Post) (cm) 0.01 0 -Wound/Ulcer Outcome Not Healed Healed- Epithelialized -Foul Odor after Cleansing No -Bioengineered Tissue No -Bleeding Controlled with NA #4- abdominal cluster -Time 10:14 09:35 09:44 -Correct Patient Yes Yes Yes -Correct Side, Site, Position Yes Yes Yes -Correct Procedure Yes Yes Yes -Procedure Performed Yes Yes Yes -Type of Procedure Debridement Debridement Debridement -Clinical Debridement Subcutaneous Subcutaneous Subcutaneous -Tissue Removed Subcutaneous Subcutaneous Subcutaneous -Post Debridement (cm) - Length 9.0 8.0 9.2 -Post Debridement (cm) - Width 16.0 17.0 14.5 -Post Debridement (cm) - Depth 0.1 0.1 0.1 -Total Square (Post) (cm) 144.00 136.00 133.40 -Area of Debridement (cm) - Length 9.0 8.0 9.2 -Area of Debridement (cm) - Width 16.0 17.0 14.5 -Total Square (Area) (cm) 144.00 136.00 133.40 -Tunneling No No No -Undermining/Tunneling No No No -Circular Undermining No No No -Wound/Ulcer Outcome Not Healed Not Healed Not Healed -Ulcer Cleansing Rinsed/ Rinsed/ Rinsed/ Irrigated with Irrigated with Irrigated with Saline Saline Saline -Foul Odor after Cleansing No No No -Bioengineered Tissue No No No -Bleeding Controlled with Pressure Pressure Pressure -Treatment Response Procedure Procedure Procedure Tolerated Well Tolerated Well Tolerated Well -Offloading No No No -Debridement - Subq, 1st 20sq cm Yes Yes Yes -Debridement, SubQ, ea addt'l 20sq cm 7 6 6 or part thereof Pain Scale: 0-10 Numeric Is Patient Pain Free? Yes Yes Yes 08/14/22 10:28 Wound Center Nurse 2 #2 LLE cluster -Time -Correct Patient -Correct Side, Site, Position -Correct Procedure -Procedure Performed -Post Debridement (cm) - Length -Post Debridement (cm) - Width -Post Debridement (cm) - Depth -Total Square (Post) (cm) -Circular Undermining -Wound/Ulcer Outcome #1 RLE cluster -Time -Correct Patient -Correct Side, Site, Position -Correct Procedure -Procedure Performed -Post Debridement (cm) - Length -Post Debridement (cm) - Width -Post Debridement (cm) - Depth -Total Square (Post) (cm) -Wound/Ulcer Outcome -Foul Odor after Cleansing -Bioengineered Tissue -Bleeding Controlled with #4- abdominal cluster -Time 10:29 -Correct Patient Yes -Correct Side, Site, Position Yes -Correct Procedure Yes -Procedure Performed Yes -Type of Procedure Debridement -Clinical Debridement Subcutaneous -Tissue Removed Subcutaneous -Post Debridement (cm) - Length 8.5 -Post Debridement (cm) - Width 15.5 -Post Debridement (cm) - Depth 0.1 -Total Square (Post) (cm) 131.75 -Area of Debridement (cm) - Length 8.5 -Area of Debridement (cm) - Width 15.5 -Total Square (Area) (cm) 131.75 -Tunneling No -Undermining/Tunneling No -Circular Undermining No -Wound/Ulcer Outcome Not Healed -Ulcer Cleansing Rinsed/ Irrigated with Saline -Foul Odor after Cleansing No -Bioengineered Tissue No -Bleeding Controlled with Pressure -Treatment Response Procedure Tolerated Well -Offloading No -Debridement - Subq, 1st 20sq cm Yes -Debridement, SubQ, ea addt'l 20sq cm or part thereof Pain Scale: 0-10 Numeric Is Patient Pain Free? Yes WC - Nurse 3 - General Ulcer D/C NN Start: 07/24/22 09:37 Freq: Status: Active Protocol: Activity Type Activity Date Activity User E-sign Co-sign Detail Recorded Client Recorded Date Recorded By Document 07/24/22 11:29 DL [id number] 07/24/22 11:32 DL Document 07/31/22 09:46 DL [id number] 07/31/22 09:53 DL Document 08/07/22 09:57 MW [id number] 08/07/22 10:08 MW Document 08/14/22 10:42 [facility] [id number] 08/14/22 10:43 BMF 07/24/22 07/31/22 08/07/22 11:29 09:46 09:57 Wound Care Center Nurse 3 #2 LLE cluster -Ulcer Cleansing Rinsed/ Irrigated with Saline -Primary Dressing Applied NonAdherent Contact Layer -Primary Dressing Covered/Secured with Dry Gauze & Roll Gauze, Secured with Tape #1 RLE cluster -Ulcer Cleansing Rinsed/ Irrigated with Saline -Foul Odor after Cleansing No -Primary Dressing Applied NonAdherent Contact Layer -Primary Dressing Covered/Secured with Dry Gauze & Roll Gauze, Secured with Tape #4- abdominal cluster -Ulcer Cleansing Rinsed/ Rinsed/ Rinsed/ Irrigated with Irrigated with Irrigated with Saline Saline Saline -Foul Odor after Cleansing No No No -Primary Dressing Applied Collagen Powder Fibracol Plus Fibracol Plus ($), 4x4,NonAdherent 4x4,NonAdherent NonAdherent Contact Layer Contact Layer Contact Layer -Other Dressing -Primary Dressing Covered/Secured with Dry Gauze, Dry Gauze, Dry Gauze, Secured with Secured with Secured with Tape Tape Tape -Fibracol Plus 4x4 1 1 bart -Tubular Bandage Single Layer Single Layer -Size of Tubigrip Used Size E Size E -Size E ($) 1 1 Left -Tubular Bandage Single Layer -Size of Tubigrip Used Size E -Size E ($) 1 Right -Tubular Bandage Single Layer -Size of Tubigrip Used Size E -Size E ($) 1 Treatment Response Procedure Procedure Procedure Tolerated Well Tolerated Well Tolerated Well Pain Scale: 0-10 Numeric Is Patient Pain Free? Yes Yes Yes WC - Visit Discharge Discharge Condition Stable Stable Stable Ambulatory Status Ambulatory, Wheelchair Wheelchair Wheelchair Transportation ECF trans ECF Trans ECF trans. Facility [facility] Facility Facility Orders Sent Yes Yes Yes 08/14/22 10:42 Wound Care Center Nurse 3 #2 LLE cluster -Ulcer Cleansing -Primary Dressing Applied -Primary Dressing Covered/Secured with #1 RLE cluster -Ulcer Cleansing -Foul Odor after Cleansing -Primary Dressing Applied -Primary Dressing Covered/Secured with #4- abdominal cluster -Ulcer Cleansing Rinsed/ Irrigated with Saline -Foul Odor after Cleansing No -Primary Dressing Applied Fibracol Plus 4x4,NonAdherent Contact Layer -Other Dressing abd -Primary Dressing Covered/Secured with Secured with Tape -Fibracol Plus 4x4 1 bart -Tubular Bandage Single Layer -Size of Tubigrip Used Size E -Size E ($) 2 Left -Tubular Bandage -Size of Tubigrip Used -Size E ($) Right -Tubular Bandage -Size of Tubigrip Used -Size E ($) Treatment Response Procedure Tolerated Well Pain Scale: 0-10 Numeric Is Patient Pain Free? Yes WC - Visit Discharge Discharge Condition Stable Ambulatory Status Wheelchair Transportation ecf transport Facility Type [facility] Facility Orders Sent Assessment/Plan Assessment/Plan (1) Superficial ulcer of skin: CODE(S): L98.491 - Non-pressure chronic ulcer of skin of other sites limited to breakdown of skin (2) Venous insufficiency of both lower extremities: CODE(S): I87.2 - Venous insufficiency (chronic) (peripheral) (3) Chronic dermatitis: CODE(S): L30.9 - Dermatitis, unspecified (4) Venous insufficiency: CODE(S): I87.2 - Venous insufficiency (chronic) (peripheral) (5) Urticaria: CODE(S): L50.9 - Urticaria, unspecified (6) Skin ulcer of abdominal wall with fat layer exposed: CODE(S): L98.492 - Non-pressure chronic ulcer of skin of other sites with fat layer exposed PLAN: Plan Debridement done as documented above, procedure was well-tolerated.'s improvement noted. Continue Fibracol, cover with Adaptic and ABD. He was advised to keep his ulcers covered at all times. Continue other chronic management of bilateral lower extremity, continue leg elevation, adequate protein intake, optimal diabetes control, and other dietary/lifestyle modifications recommended. His questions were answered and he was advised to call with any further questions or concerns. Follow-up with me in 1 week. This note was generated with [employer] dictation software. It may contain incorrect words, spelling, and punctuation that were not noted in checking the note before signing.
== END 2022-08-19 23:59 | disposition home or self-care (01) ==
LOC: WC 10:00
PROVIDERS: PCP Internal Medicine; Visit Provider Internal Medicine
DX: L98.491 Non-pressure chronic ulcer of skin of other sites limited to breakdown of skin (principal); L98.492 Non-pressure chronic ulcer of skin of other sites with fat layer exposed; N18.6 End stage renal disease; M79.604 Pain in right leg; M79.605 Pain in left leg; L30.9 Dermatitis, unspecified; I87.2 Venous insufficiency (chronic) (peripheral); L50.9 Urticaria, unspecified
CPT/HCPCS: 11042; 11045; 82962

== ENCOUNTER → 2022-08-18 | Outpatient (REF) | payer MEDICARE, MEDICAID, SELFPAY ==
[2022-08-18 07:11] LABS: INR Fingerstick 1.8
== END ==
LOC: OLS.SW 05:00
PROVIDERS: PCP Internal Medicine; Visit Provider Family Medicine
DX: I48.91 Unspecified atrial fibrillation (principal)
CPT/HCPCS: 36416; 85610

== ENCOUNTER → 2022-08-19 | Outpatient (REF) | payer MEDICARE, MEDICAID, SELFPAY ==
[2022-08-19 08:29] LABS: Anion Gap 6 (5-15); BUN 45 mg/dL (7-18); BUN/Creat Ratio 12.5 RATIO (10-20); Calcium,Total 9.1 mg/dL (8.5-10.1); Chloride 93 mmol/L (98-107); Creatinine, Serum 3.59 mg/dL (0.70-1.30); EST Glomerular Filtration Rate 18 mL/min (>60); Est Glom Filt Rate - Afr Amer 21 mL/min (>60); Glucose 162 mg/dL (74-106); Phosphorus 2.4 mg/dL (2.5-4.9); Potassium 3.7 mmol/L (3.5-5.1); Sodium Level 132 mmol/L (136-145)
[2022-08-19 08:35] LABS: Hematocrit 30.8 % (40-54); Hemoglobin 9.7 g/dL (13.0-16.5); Mean Corp Hgb Conc 31.5 g/dL (32-36); Mean Corpuscular Hgb 31.5 pg (27.0-32.0); Mean Platelet Vol. 10.9 fl (6.2-12.0); Platelet Count 247 K/mm3 (150-450); RBC Distribution Width CV 14.3 % (11.6-14.6); RBC Distribution Width SD 51.7 fl (35.1-43.9); Red Blood Count 3.08 M/mm3 (4.6-6.2); White Blood Count 13.8 K/mm3 (4.4-11.0)
== END ==
LOC: OLS.SW 05:00
PROVIDERS: PCP Internal Medicine; Referring Provider Family Medicine; Visit Provider Family Medicine
DX: E11.22 Type 2 diabetes mellitus with diabetic chronic kidney disease (principal); I50.30 Unspecified diastolic (congestive) heart failure; N18.5 Chronic kidney disease, stage 5
CPT/HCPCS: 36415; 80048; 84100; 85027

== ENCOUNTER → 2022-08-25 | Outpatient (REF) | payer MEDICARE, MEDICAID, SELFPAY ==
[2022-08-25 10:26] LABS: INR Fingerstick 1.8; Prothrombin Time Fingerstick 21.5 SEC (11.7-14.9)
== END ==
LOC: OLS.SW 04:00
PROVIDERS: PCP Internal Medicine; Referring Provider Family Medicine; Visit Provider Family Medicine
DX: E11.9 Type 2 diabetes mellitus without complications (principal); Z79.01 Long term (current) use of anticoagulants
CPT/HCPCS: 36416; 85610

== ENCOUNTER → 2022-09-01 | Outpatient (REF) | payer MEDICARE, MEDICAID, SELFPAY ==
[2022-09-01 09:40] LABS: INR Fingerstick 2.8; Prothrombin Time Fingerstick 31.9 SEC (11.7-14.9)
== END ==
LOC: OLS.SW 05:00
PROVIDERS: PCP Internal Medicine; Visit Provider Family Medicine
DX: I48.91 Unspecified atrial fibrillation (principal); Z79.899 Other long term (current) drug therapy
CPT/HCPCS: 36416; 85610

== ENCOUNTER → 2022-09-08 | Outpatient (REF) | payer MEDICARE, MEDICAID, SELFPAY ==
[2022-09-08 08:25] LABS: INR Fingerstick 3.1; Prothrombin Time Fingerstick 33.3 SEC (11.7-14.9)
== END ==
LOC: OLS.SW 05:00
PROVIDERS: PCP Internal Medicine; Visit Provider Family Medicine
DX: I48.91 Unspecified atrial fibrillation (principal)
CPT/HCPCS: 36416; 85610

== ENCOUNTER 2022-09-11 10:15 | Outpatient (RCR) | payer MEDICARE, MEDICAID, SELFPAY ==
[2022-08-20 00:21] VITALS: BP 116/96; PULSE 79; RESP 20; TEMP 35.6; O2SAT 98; BMI 37.1
[2022-08-21 09:57] VITALS: BP 135/69; PULSE 76; RESP 20; TEMP 36.6; BMI 37.1
--- NOTE | 2022-08-21 13:30 | PN.PCM_ITS ---
History of Present Illness Date of Service: 08/21/22 Chief Complaint: Bilateral lower extremity pain, redness and swelling. Abdominal Ulcers. History of Wound: This is a 76 year-old white male who presents to the wound healing center today due to non healing bilateral lower extremity lesions. He states that his concerns have been present for over a year. Was seen at the wound center with no significant improvement and he was subsequently sent to see a Turn Down Man. He states that he was seen weekly and had a Zinc oxide wrap placed again without any improvement. His main concerns are bilateral lower extremity, rash, itching, irritation, redness and swelling. He was sent by his PCP to [facility] where he was seen by ID. He states that he was placed on IV antibiotics but again, he states that he does not believe it made any difference. He denies chills, fever or otherwise feeling of unwell. 06-05-22 He presents with new abdominal wound which he states has been present for at least 10 years. Had been seen at the wound center years ago for this. Never really achieved complete healing and patient also admits that he picks at it as well. Has had some ointment applied at his facility without significant improvement. He feels well otherwise. Progress of Wound: Improving, no new concerns at this time. Objective Data Objective Data Vital Signs: Vital Signs Temp Pulse Resp BP Pulse Ox O2 Del Method O2 Flow Rate 98 F 76 20 H 135/69 H 98 Nasal Cannula 3 08/21/22 09:57 08/21/22 09:57 08/21/22 09:57 08/21/22 09:57 08/20/22 00:21 08/21/22 09:57 08/21/22 09:57 Oxygen Flow Rate (L/min) 3 Oxygen Delivery Method Nasal Cannula Weight: 230 lb Body Mass Index (BMI) 37.1 Charges/Coding Procedures Integumentary 111xxx-113xx: 65368 Cleopatra subq tissue 20 sq cm/< Add On Codes: 62838 Cleopatra subq tissue add-on (x5. Additional square centimeter debrided, please refer to clinical note.) Physical Exam Const General Appearance: cooperative, comfortable and well developed Orientation / Consciousness: awake, oriented to person, oriented to place and oriented to time HEENT normocephalic, head/scalp atraumatic and hearing grossly normal bilaterally Head and Scalp: normal to inspection, normocephalic and atraumatic Eyes General Eye: normal appearance of both eyes Neck full ROM and supple General: normal visual inspection Resp normal respiratory effort Effort and Inspection: able to speak in complete sentences Skin Wounds: wounds noted Neuro oriented x3, CN's II-XII intact bilaterally, moves all extremities and no focal motor deficits Psych mental status grossly normal Appearance: grossly normal Attitude: calm Activity / Motor Behavior: appropriate eye contact Debridement Note Debridement Note Wound debrided: Abdominal cluster Type of Debridement: Excisional debridement Anesthesia Used: 5% Lidocaine Gel Depth: Down to and including healthy tissue Percentage of wound debrided: 100 Instrument Used: 5mm curette Tissue Removed: Slough and devitalized tissue Severity: Fat Layer Exposed Amount of bleeding with debridement: Mild Bleeding Controlled with: Pressure Patient tolerated procedure: Patient tolerated procedure well Post-Debridement Measurements and Additional Note: Post-Debridement Measurements/Treatment - Nurse 1 - General Ulcer Assessment Start: 08/21/22 09:57 Freq: Status: Active Protocol: BROOKE Activity Type Activity Date Activity User E-sign Co-sign Detail Recorded Client Recorded Date Recorded By Document 08/21/22 09:57 DL [id number] 08/21/22 10:02 DL 08/21/22 09:57 WC - Today's Visit Information Type of service Follow-up Visit (Physician/CYTOGENETIC TECHNICIAN ) Arrival Mode Wheelchair Transfer Assistance Manual Transfer Assist (Other) x2 Patient Identification Verified (Name & Yes ) Patient Requires Transmission-Based No Precautions Finger Stick Blood Sugar(mg/dl) (if 138 indicated): Blood Sugar Stated by Patient Height and Weight Body Mass Index (BMI) 37.1 BMI Classification Obese Vital Signs Temperature (97.8 F-99.1 F) 98 F Temperature Source Temporal Pulse Rate (60-100) 76 Pulse Location Monitor Respiratory Rate (12-18) 20 H Respiratory rate source Observation Oxygen Delivery Method Nasal Cannula O2 L/MIN (L/min) 3 Blood Pressure (90/60-120/80) 135/69 H Blood Pressure Mean (mm Hg) 91 History Since Last Visit- (Skip if this is Patient's initial visit) Have you changed medications since your No last visit? Any new allergies or adverse reactions No Had a fall/change in ADL's that may No increase risk of falls Signs or symptoms of abuse and/or No neglect since last visit Have you been in the hospital since your No last visit? Has dressing in place as prescribed Yes Has offloadiing in place as prescribed N/A Experienced any changes in pain level or No management Pain Scale: 0-10 Numeric Is Patient Pain Free? Yes - Nurse 1 - General Ulcer Measurement Start: 08/21/22 09:57 Freq: Status: Active Protocol: Activity Type Activity Date Activity User E-sign Co-sign Detail Recorded Client Recorded Date Recorded By Document 08/21/22 09:57 DL [id number] 08/21/22 10:02 DL 08/21/22 09:57 Wound Center Nurse 1 #4- abdominal cluster -Current Size (cm) - Length 8 -Current Size (cm) - Width 15 -Current Size (cm) - Depth 0.1 -Total Square Cm 120 -Photo Taken Yes -Exudate Amt Small -Exudate Type Serosanguineous -Wound Margin Distinct, Outline Attached -Granulation Amt Large (67-100%) -Granulation Quality [place] -Necrosis Amt None Present (0 %) -Structure Exposed N/A -Texture (Dea-wound Skin Appearance) Scarring -Moisture (Dea-wound Skin Appearance) No Abnormality -Color (Dea-wound Skin Appearance) No Abnormality -Tenderness on Palpation (Dea-wound No Skin Appearance) -Ulcer Cleansing Soap and Water -Foul Odor after Cleansing No -Anesthetic Used 5% Lidocaine Gel - Nurse 2 - General Ulcer CM Notes Start: 08/21/22 09:57 Freq: Status: Active Protocol: Activity Type Activity Date Activity User E-sign Co-sign Detail Recorded Client Recorded Date Recorded By Document 08/21/22 10:10 MW [id number] 08/21/22 10:13 MW 08/21/22 10:10 Wound Center Nurse 2 -Time 10:11 -Correct Patient Yes -Correct Side, Site, Position Yes -Correct Procedure Yes -Procedure Performed Yes -Type of Procedure Debridement -Clinical Debridement Subcutaneous -Tissue Removed Subcutaneous -Post Debridement (cm) - Length 7.5 -Post Debridement (cm) - Width 14.0 -Post Debridement (cm) - Depth 0.1 -Total Square (Post) (cm) 105.00 -Area of Debridement (cm) - Length 7.5 -Area of Debridement (cm) - Width 14.0 -Total Square (Area) (cm) 105.00 -Tunneling No -Undermining/Tunneling No -Circular Undermining No -Wound/Ulcer Outcome Not Healed -Ulcer Cleansing Rinsed/ Irrigated with Saline -Foul Odor after Cleansing No -Bioengineered Tissue No -Bleeding Controlled with Pressure -Treatment Response Procedure Tolerated Well -Offloading No -Debridement - Subq, 1st 20sq cm Yes Pain Scale: 0-10 Numeric Is Patient Pain Free? Yes WC - Nurse 3 - General Ulcer D/C NN Start: 08/21/22 09:57 Freq: Status: Active Protocol: Activity Type Activity Date Activity User E-sign Co-sign Detail Recorded Client Recorded Date Recorded By Document 08/21/22 10:13 MW [id number] 08/21/22 10:21 MW 08/21/22 10:13 Wound Care Center Nurse 3 #4- abdominal cluster -Ulcer Cleansing Rinsed/ Irrigated with Saline -Foul Odor after Cleansing No -Negative Pressure Wound Therapy N/A -Primary Dressing Applied Fibracol Plus 4x4,NonAdherent Contact Layer, Mepilex Border -Other Covering ABD PAD -Fibracol Plus 4x4 1 -Mepilex Border 2 Treatment Response Procedure Tolerated Well Pain Scale: 0-10 Numeric Is Patient Pain Free? Yes Teaching: Wound Center Dressing Your Wound -Person Taught Patient -Teaching Method Discussion, Demonstration -Response to teaching Verbalize understanding WC - Visit Discharge Discharge Condition Stable Ambulatory Status Wheelchair Transportation [employer] transport Medication Reconcilliation completed & No provided to patient/care provider Clinical Summary of Care Provided Yes Assessment/Plan Assessment/Plan (1) Superficial ulcer of skin: CODE(S): L98.491 - Non-pressure chronic ulcer of skin of other sites collins ited to breakdown of skin (2) Venous insufficiency of both lower extremities: CODE(S): I87.2 - Venous insufficiency (chronic) (peripheral) (3) Chronic dermatitis: CODE(S): L30.9 - Dermatitis, unspecified (4) Venous insufficiency: CODE(S): I87.2 - Venous insufficiency (chronic) (peripheral) (5) Urticaria: CODE(S): L50.9 - Urticaria, unspecified (6) Skin ulcer of abdominal wall with fat layer exposed: CODE(S): L98.492 - Non-pressure chronic ulcer of skin of other sites with fat layer exposed PLAN: Plan Debridement done as documented above, procedure was well-tolerated.'s improvement noted. Continue Fibracol, cover with Adaptic and ABD. He was advised to keep his ulcers covered at all times. Continue other chronic management of bilateral lower extremity, continue leg elevation, adequate protein intake, optimal diabetes control, and other dietary/lifestyle modifications recommended. His questions were answered and he was advised to call with any further questions or concerns. Follow-up with me in 1 week. This note was generated with [employer] dictation software. It may contain incorrect words, spelling, and punctuation that were not noted in checking the note before signing.
[2022-08-28 10:16] VITALS: BP 104/62; PULSE 77; RESP 18; TEMP 35.9; BMI 37.1
--- NOTE | 2022-08-28 11:16 | PN.PCM_ITS ---
History of Present Illness Date of Service: 08/28/22 Chief Complaint: Bilateral lower extremity pain, redness and swelling. Abdominal Ulcers. History of Wound: This is a 76 year-old white male who presents to the wound healing center today due to non healing bilateral lower extremity lesions. He states that his concerns have been present for over a year. Was seen at the wound center with no significant improvement and he was subsequently sent to see a Pref[employer]ricated Houses Trimmer. He states that he was seen weekly and had a Zinc oxide wrap placed again without any improvement. His main concerns are bilateral lower extremity, rash, itching, irritation, redness and swelling. He was sent by his PCP to [facility] where he was seen by ID. He states that he was placed on IV antibiotics but again, he states that he does not believe it made any difference. He denies chills, fever or otherwise feeling of unwell. 06-05-22 He presents with new abdominal wound which he states has been present for at least 10 years. Had been seen at the wound center years ago for this. Never really achieved complete healing and patient also admits that he picks at it as well. Has had some ointment applied at his facility without significant improvement. He feels well otherwise. Progress of Wound: Stable, no new concerns at this time. Objective Data Objective Data Vital Signs: Vital Signs Temp Pulse Resp BP Pulse Ox O2 Del Method O2 Flow Rate 96.6 F L 77 18 104/62 98 Nasal Cannula 3 08/28/22 10:16 08/28/22 10:16 08/28/22 10:16 08/28/22 10:16 08/20/22 00:21 08/21/22 09:57 08/21/22 09:57 Oxygen Flow Rate (L/min) 3 Oxygen Delivery Method Nasal Cannula Weight: 230 lb Body Mass Index (BMI) 37.1 Charges/Coding Procedures Integumentary 111xxx-113xx: 45333 Cleopatra subq tissue 20 sq cm/< Add On Codes: 86982 Cleopatra subq tissue add-on (x6 Additional square centimeter debrided, please refer to clinical note.) Physical Exam Const alert, oriented x3 and no apparent distress General Appearance: cooperative, comfortable and well developed Orientation / Consciousness: awake, oriented to person, oriented to place and oriented to time HEENT normocephalic, head/scalp atraumatic and hearing grossly normal bilaterally Head and Scalp: normal to inspection, normocephalic and atraumatic Eyes General Eye: normal appearance of both eyes Neck full ROM and supple General: normal visual inspection Resp normal respiratory effort Effort and Inspection: able to speak in complete sentences Skin Wounds: wounds noted Neuro oriented x3, CN's II-XII intact bilaterally, moves all extremities and no focal motor deficits Psych mental status grossly normal Appearance: grossly normal Attitude: calm Activity / Motor Behavior: appropriate eye contact Debridement Note Debridement Note Wound debrided: Abdominal cluster Type of Debridement: Excisional debridement Anesthesia Used: 5% Lidocaine Gel Depth: Down to and including healthy tissue and in the subcutaneous layer Percentage of wound debrided: 100 Instrument Used: 5mm curette Tissue Removed: Slough and devitalized tissue Severity: Fat Layer Exposed Amount of bleeding with debridement: Mild Bleeding Controlled with: Pressure Patient tolerated procedure: Patient tolerated procedure well Post-Debridement Measurements and Additional Note: Post-Debridement Measurements/Treatment ILENE - Nurse 1 - General Ulcer Assessment Start: 08/21/22 09:57 Freq: Status: Active Protocol: BROOKE Activity Type Activity Date Activity User E-sign Co-sign Detail Recorded Client Recorded Date Recorded By Document 08/21/22 09:57 DL [id number] 08/21/22 10:02 DL Document 08/28/22 10:16 DL [id number] 08/28/22 10:21 DL 08/21/22 08/28/22 09:57 10:16 - Today's Visit Information Type of service Follow-up Visit Follow-up Visit (Physician/PRODUCT DESIGNER (Physician/PRODUCT DESIGNER ) ) Arrival Mode Wheelchair Stretcher Transfer Assistance Manual Manual Transfer Assist (Other) x2 x1 Patient Identification Verified (Name & Yes Yes ) Patient Requires Transmission-Based No Precautions Finger Stick Blood Sugar(mg/dl) (if 138 indicated): Blood Sugar Stated by Patient Height and Weight Body Mass Index (BMI) 37.1 37.1 BMI Classification Obese Obese Vital Signs Temperature (97.8 F-99.1 F) 98 F 96.6 F L Temperature Source Temporal Oral Pulse Rate (60-100) 76 77 Pulse Location Monitor Monitor Respiratory Rate (12-18) 20 H 18 Respiratory rate source Observation Observation Oxygen Delivery Method Nasal Cannula O2 L/MIN (L/min) 3 Blood Pressure (90/60-120/80) 135/69 H 104/62 Blood Pressure Mean (mm Hg) 91 76 Source Monitor History Since Last Visit- (Skip if this is Patient's initial visit) Have you changed medications since your No last visit? Any new allergies or adverse reactions No No Had a fall/change in ADL's that may No No increase risk of falls Signs or symptoms of abuse and/or No No neglect since last visit Have you been in the hospital since your No No last visit? Has dressing in place as prescribed Yes Yes Has compression in place as prescribed N/A Has offloadiing in place as prescribed N/A N/A Experienced any changes in pain level or No No management Pain Scale: 0-10 Numeric Is Patient Pain Free? Yes Yes WC - Nurse 1 - General Ulcer Measurement Start: 08/21/22 09:57 Freq: Status: Active Protocol: Activity Type Activity Date Activity User E-sign Co-sign Detail Recorded Client Recorded Date Recorded By Document 08/21/22 09:57 DL [id number] 08/21/22 10:02 DL Document 08/28/22 10:16 DL [id number] 08/28/22 10:21 DL 08/21/22 08/28/22 09:57 10:16 Wound Center Nurse 1 #4- abdominal cluster -Current Size (cm) - Length 8 8.5 -Current Size (cm) - Width 15 15 -Current Size (cm) - Depth 0.1 0.1 -Total Square Cm 120 127.5 -Photo Taken Yes No -Exudate Amt Small Medium -Exudate Type Serosanguineous Serosanguineous -Wound Margin Distinct, Distinct, Outline Outline Attached Attached -Granulation Amt Large (67-100%) Medium (34-66%) -Granulation Quality [place] Pale,[place] -Necrosis Amt None Present (0 Medium (34-66%) %) -Necrotic Tissue Type Adherent Slough -Structure Exposed N/A N/A -Texture (Dea-wound Skin Appearance) Scarring Scarring -Moisture (Dea-wound Skin Appearance) No Abnormality Dry/Scaly -Color (Dea-wound Skin Appearance) No Abnormality Assessed -Temperature (Dea-wound Skin No Abnormality Appearance) (Pt Warm) -Tenderness on Palpation (Dea-wound No No Skin Appearance) -Ulcer Cleansing Soap and Water Soap and Water -Foul Odor after Cleansing No No -Anesthetic Used 5% Lidocaine 5% Lidocaine Gel Gel WC - Nurse 2 - General Ulcer CM Notes Start: 08/21/22 09:57 Freq: Status: Active Protocol: Activity Type Activity Date Activity User E-sign Co-sign Detail Recorded Client Recorded Date Recorded By Document 08/21/22 10:10 MW [id number] 08/21/22 10:13 MW Edit Result 08/21/22 10:10 MW (1) [id number] 08/22/22 06:32 PL Document 08/28/22 10:42 JF [id number] 08/28/22 10:45 JF (1) #4- abdominal cluster - Debridement, SubQ, ea addt'l 20sq cm => 5 or part thereof 08/21/22 08/28/22 10:10 10:42 Wound Center Nurse 2 #4- abdominal cluster -Time 10:11 10:43 -Correct Patient Yes Yes -Correct Side, Site, Position Yes Yes -Correct Procedure Yes Yes -Procedure Performed Yes Yes -Type of Procedure Debridement Debridement -Clinical Debridement Subcutaneous Subcutaneous -Tissue Removed Subcutaneous Subcutaneous -Post Debridement (cm) - Length 7.5 8.5 -Post Debridement (cm) - Width 14.0 16.0 -Post Debridement (cm) - Depth 0.1 0.1 -Total Square (Post) (cm) 105.00 136.00 -Area of Debridement (cm) - Length 7.5 8.5 -Area of Debridement (cm) - Width 14.0 16.0 -Total Square (Area) (cm) 105.00 136.00 -Tunneling No No -Undermining/Tunneling No No -Circular Undermining No No -Wound/Ulcer Outcome Not Healed Not Healed -Ulcer Cleansing Rinsed/ Rinsed/ Irrigated with Irrigated with Saline Saline -Foul Odor after Cleansing No No -Bioengineered Tissue No No -Bleeding Controlled with Pressure Pressure -Treatment Response Procedure Procedure Tolerated Well Tolerated Well -Offloading No No -Debridement - Subq, 1st 20sq cm Yes Yes -Debridement, SubQ, ea addt'l 20sq cm 5 6 or part thereof Pain Scale: 0-10 Numeric Is Patient Pain Free? Yes Yes WC - Nurse 3 - General Ulcer D/C NN Start: 08/21/22 09:57 Freq: Status: Active Protocol: Activity Type Activity Date Activity User E-sign Co-sign Detail Recorded Client Recorded Date Recorded By Document 08/21/22 10:13 MW [id number] 08/21/22 10:21 MW Document 08/28/22 10:53 DL [id number] 08/28/22 10:58 DL 08/21/22 08/28/22 10:13 10:53 Wound Care Center Nurse 3 #4- abdominal cluster -Ulcer Cleansing Rinsed/ Rinsed/ Irrigated with Irrigated with Saline Saline -Foul Odor after Cleansing No No -Negative Pressure Wound Therapy N/A -Primary Dressing Applied Fibracol Plus Fibracol Plus 4x4,NonAdherent 4x4,NonAdherent Contact Layer, Contact Layer Mepilex Border -Primary Dressing Covered/Secured with Dry Gauze, Secured with Tape -Other Covering ABD PAD -Fibracol Plus 4x4 1 1 -Mepilex Border 2 Treatment Response Procedure Procedure Tolerated Well Tolerated Well Pain Scale: 0-10 Numeric Is Patient Pain Free? Yes Yes Teaching: Wound Center Dressing Your Wound -Person Taught Patient -Teaching Method Discussion, Demonstration -Response to teaching Verbalize understanding WC - Visit Discharge Discharge Condition Stable Stable Ambulatory Status Wheelchair Wheelchair Transportation [employer] [facility] Trans transport Medication Reconcilliation completed & No provided to patient/care provider Clinical Summary of Care Provided Yes Orders Sent Yes Assessment/Plan Assessment/Plan (1) Superficial ulcer of skin: CODE(S): L98.491 - Non-pressure chronic ulcer of skin of other sites limited to breakdown of skin (2) Venous insufficiency of both lower extremities: CODE(S): I87.2 - Venous insufficiency (chronic) (peripheral) (3) Chronic dermatitis: CODE(S): L30.9 - Dermatitis, unspecified (4) Venous insufficiency: CODE(S): I87.2 - Venous insufficiency (chronic) (peripheral) (5) Urticaria: CODE(S): L50.9 - Urticaria, unspecified (6) Skin ulcer of abdominal wall with fat layer exposed: CODE(S): L98.492 - Non-pressure chronic ulcer of skin of other sites with fat layer exposed PLAN: Plan Debridement done as documented above, procedure was well-tolerated. Stable, no significant change in the past week. Continue Fibracol, cover with Adaptic and ABD. He was advised to keep his ulcers covered at all times. Continue other chronic management of bilateral lower extremity, continue leg elevation, adequate protein intake, optimal diabetes control, and other dietary/lifestyle modifications recommended. His questions were answered and he was advised to call with any further questions or concerns. Follow-up in 1 week. This note was generated with [email or web address] dictation software. It may contain incorrect words, spelling, and punctuation that were not noted in checking the note before signing.
[2022-09-04 09:45] VITALS: BP 96/55; PULSE 73; RESP 18; TEMP 35.4; BMI 37.1
--- NOTE | 2022-09-04 10:10 | PN.PCM_ITS ---
History of Present Illness Date of Service: 09/04/22 Chief Complaint: Bilateral lower extremity pain, redness and swelling. Abdominal Ulcers. History of Wound: This is a 76 year-old white male who presents to the wound healing center today due to non healing bilateral lower extremity lesions. He states that his concerns have been present for over a year. Was seen at the wound center with no significant improvement and he was subsequently sent to see a Clinical Assistant Professor. He states that he was seen weekly and had a Zinc oxide wrap placed again without any improvement. His main concerns are bilateral lower extremity, rash, itching, irritation, redness and swelling. He was sent by his PCP to [facility] where he was seen by ID. He states that he was placed on IV antibiotics but again, he states that he does not believe it made any difference. He denies chills, fever or otherwise feeling of unwell. 06-05-22 He presents with new abdominal wound which he states has been present for at least 10 years. Had been seen at the wound center years ago for this. Never really achieved complete healing and patient also admits that he picks at it as well. Has had some ointment applied at his facility without significant improvement. He feels well otherwise. Progress of Wound: Improving, no new concerns at this time. Objective Data Objective Data Vital Signs: Vital Signs Temp Pulse Resp BP Pulse Ox O2 Del Method O2 Flow Rate 95.8 F L 73 18 96/55 L 98 Nasal Cannula 3 09/04/22 09:45 09/04/22 09:45 09/04/22 09:45 09/04/22 09:45 08/20/22 00:21 09/04/22 09:45 09/04/22 09:45 Oxygen Flow Rate (L/min) 3 Oxygen Delivery Method Nasal Cannula Weight: 230 lb Body Mass Index (BMI) 37.1 Charges/Coding Procedures Integumentary 111xxx-113xx: [id number] Cleopatra subq tissue 20 sq cm/< Add On Codes: 85910 Cleopatra subq tissue add-on (x1. Additional Sq Cm debrided, please refer to clinical note. ) Physical Exam Const alert, oriented x3 and no apparent distress General Appearance: cooperative, comfortable and well developed Orientation / Consciousness: awake, oriented to person, oriented to place and oriented to time HEENT normocephalic, head/scalp atraumatic and hearing grossly normal bilaterally Head and Scalp: normal to inspection, normocephalic and atraumatic Eyes General Eye: normal appearance of both eyes Neck full ROM and supple General: normal visual inspection Resp normal respiratory effort Effort and Inspection: able to speak in complete sentences Skin Wounds: wounds noted Neuro oriented x3, CN's II-XII intact bilaterally, moves all extremities and no focal motor deficits Psych mental status grossly normal Appearance: grossly normal Attitude: calm Activity / Motor Behavior: appropriate eye contact Debridement Note Debridement Note Wound debrided: Abdominal cluster Type of Debridement: Excisional debridement Anesthesia Used: 5% Lidocaine Gel Depth: Down to and including healthy tissue and in the subcutaneous layer Percentage of wound debrided: 100 Instrument Used: 5mm curette Tissue Removed: Slough and devitalized tissue Severity: Fat Layer Exposed Amount of bleeding with debridement: Mild Bleeding Controlled with: Pressure Patient tolerated procedure: Patient tolerated procedure well Post-Debridement Measurements and Additional Note: Post-Debridement Measurements/Treatment - Nurse 1 - General Ulcer Assessment Start: 08/21/22 09:57 Freq: Status: Active Protocol: BROOKE Activity Type Activity Date Activity User E-sign Co-sign Detail Recorded Client Recorded Date Recorded By Document 08/21/22 09:57 DL [id number] 08/21/22 10:02 DL Document 08/28/22 10:16 DL [id number] 08/28/22 10:21 DL Document 09/04/22 09:45 [facility] [id number] 09/04/22 09:53 BMF 08/21/22 08/28/22 09/04/22 09:57 10:16 09:45 - Today's Visit Information Type of service Follow-up Visit Follow-up Visit Follow-up Visit (Physician/[employer] (Physician/[employer] (Physician/[employer] ) ) ) Arrival Mode Wheelchair Stretcher Wheelchair Transfer Assistance Manual Manual Other Transfer Assist (Other) x2 x1 1 stand by Patient Identification Verified (Name & Yes Yes Yes ) Patient Requires Transmission-Based No No Precautions Finger Stick Blood Sugar(mg/dl) (if 138 133 indicated): Blood Sugar Stated by Stated by Patient Patient Height and Weight Body Mass Index (BMI) 37.1 37.1 37.1 BMI Classification Obese Obese Obese Vital Signs Temperature (97.8 F-99.1 F) 98 F 96.6 F L 95.8 F L Temperature Source Temporal Oral Temporal Pulse Rate (60-100) 76 77 73 Pulse Location Monitor Monitor Monitor Respiratory Rate (12-18) 20 H 18 18 Respiratory rate source Observation Observation Observation Oxygen Delivery Method Nasal Cannula Nasal Cannula O2 L/MIN (L/min) 3 3 Blood Pressure (90/60-120/80) 135/69 H 104/62 96/55 L Blood Pressure Mean (mm Hg) 91 76 68 Source Monitor Monitor Position Sitting Blood Pressure Location Right Arm History Since Last Visit- (Skip if this is Patient's initial visit) Have you changed medications since your No No last visit? Any new allergies or adverse reactions No No No Had a fall/change in ADL's that may No No No increase risk of falls Signs or symptoms of abuse and/or No No No neglect since last visit Have you been in the hospital since your No No No last visit? Has dressing in place as prescribed Yes Yes Yes Has compression in place as prescribed N/A N/A Has offloadiing in place as prescribed N/A N/A N/A Experienced any changes in pain level or No No No management Left Footwear Regular Shoe Right Footwear Regular Shoe Pain Scale: 0-10 Numeric Is Patient Pain Free? Yes Yes Yes WC - Nurse 1 - General Ulcer Measurement Start: 08/21/22 09:57 Freq: Status: Active Protocol: Activity Type Activity Date Activity User E-sign Co-sign Detail Recorded Client Recorded Date Recorded By Document 08/21/22 09:57 DL [id number] 08/21/22 10:02 DL Document 08/28/22 10:16 DL [id number] 08/28/22 10:21 DL Document 09/04/22 09:45 BM [id number] 09/04/22 09:53 BMF 08/21/22 08/28/22 09/04/22 09:57 10:16 09:45 Wound Center Nurse 1 #4- abdominal cluster -Combined with other wound No -Current Size (cm) - Length 8 8.5 1.6 -Current Size (cm) - Width 15 15 0.6 -Current Size (cm) - Depth 0.1 0.1 0.1 -Total Square Cm 120 127.5 0.96 -Date of Last Picture (Recall this 09/04/22 field) -Photo Taken Yes No Yes -Epithelialization Medium 34-66% -Tunneling No -Undermining/Tunneling No -Circular Undermining No -Exudate Amt Small Medium Small -Exudate Type Serosanguineous Serosanguineous Serosanguineous -Wound Margin Distinct, Distinct, Flat & Intact Outline Outline Attached Attached -Granulation Amt Large (67-100%) Medium (34-66%) Medium (34-66%) -Granulation Quality Gleason Pale,Gleason Red -Slough/Fibrin Yes -Necrosis Amt None Present (0 Medium (34-66%) Medium (34-66%) %) -Necrotic Tissue Type Adherent Slough Adherent Slough -Structure Exposed N/A N/A -Texture (Dea-wound Skin Appearance) Scarring Scarring Assessed, Scarring -Moisture (Dea-wound Skin Appearance) No Abnormality Dry/Scaly Assessed,Dry/ Scaly -Color (Dea-wound Skin Appearance) No Abnormality Assessed Assessed -Temperature (Dea-wound Skin No Abnormality No Abnormality Appearance) (Pt Warm) (Pt Warm) -Tenderness on Palpation (Dea-wound No No No Skin Appearance) -Ulcer Cleansing Soap and Water Soap and Water Rinsed/ Irrigated with Saline -Foul Odor after Cleansing No No No -Anesthetic Used 5% Lidocaine 5% Lidocaine 5% Lidocaine Gel Gel Gel WC - Nurse 2 - General Ulcer CM Notes Start: 08/21/22 09:57 Freq: Status: Active Protocol: Activity Type Activity Date Activity User E-sign Co-sign Detail Recorded Client Recorded Date Recorded By Document 08/21/22 10:10 MW [id number] 08/21/22 10:13 MW Edit Result 08/21/22 10:10 MW (1) [id number] 08/22/22 06:32 PL Document 08/28/22 10:42 JF [id number] 08/28/22 10:45 JF Document 09/04/22 10:03 MW [id number] 09/04/22 10:06 MW (1) #4- abdominal cluster - Debridement, SubQ, ea addt'l 20sq cm => 5 or part thereof 08/21/22 08/28/22 09/04/22 10:10 10:42 10:03 Wound Center Nurse 2 #4- abdominal cluster -Time 10:11 10:43 10:03 -Correct Patient Yes Yes Yes -Correct Side, Site, Position Yes Yes Yes -Correct Procedure Yes Yes Yes -Procedure Performed Yes Yes Yes -Type of Procedure Debridement Debridement Debridement -Clinical Debridement Subcutaneous Subcutaneous Subcutaneous -Tissue Removed Subcutaneous Subcutaneous Subcutaneous -Post Debridement (cm) - Length 7.5 8.5 8.0 -Post Debridement (cm) - Width 14.0 16.0 3.0 -Post Debridement (cm) - Depth 0.1 0.1 0.1 -Total Square (Post) (cm) 105.00 136.00 24.00 -Area of Debridement (cm) - Length 7.5 8.5 8.0 -Area of Debridement (cm) - Width 14.0 16.0 3.0 -Total Square (Area) (cm) 105.00 136.00 24.00 -Tunneling No No No -Undermining/Tunneling No No No -Circular Undermining No No No -Wound/Ulcer Outcome Not Healed Not Healed Not Healed -Ulcer Cleansing Rinsed/ Rinsed/ Rinsed/ Irrigated with Irrigated with Irrigated with Saline Saline Saline -Foul Odor after Cleansing No No No -Bioengineered Tissue No No No -Bleeding Controlled with Pressure Pressure Pressure -Treatment Response Procedure Procedure Procedure Tolerated Well Tolerated Well Tolerated Well -Offloading No No No -Debridement - Subq, 1st 20sq cm Yes Yes Yes -Debridement, SubQ, ea addt'l 20sq cm 5 6 or part thereof Pain Scale: 0-10 Numeric Is Patient Pain Free? Yes Yes Yes WC - Nurse 3 - General Ulcer D/C NN Start: 08/21/22 09:57 Freq: Status: Active Protocol: Activity Type Activity Date Activity User E-sign Co-sign Detail Recorded Client Recorded Date Recorded By Document 08/21/22 10:13 MW [id number] 08/21/22 10:21 MW Document 08/28/22 10:53 DL [id number] 08/28/22 10:58 DL Document 09/04/22 10:06 MW [id number] 09/04/22 10:07 MW 08/21/22 08/28/22 09/04/22 10:13 10:53 10:06 Wound Care Center Nurse 3 #4- abdominal cluster -Ulcer Cleansing Rinsed/ Rinsed/ Rinsed/ Irrigated with Irrigated with Irrigated with Saline Saline Saline -Foul Odor after Cleansing No No No -Negative Pressure Wound Therapy N/A N/A -Primary Dressing Applied Fibracol Plus Fibracol Plus Fibracol Plus 4x4,NonAdherent 4x4,NonAdherent 4x4,NonAdherent Contact Layer, Contact Layer Contact Layer, Mepilex Border Mepilex Border -Primary Dressing Covered/Secured with Dry Gauze, Secured with Tape -Other Covering ABD PAD -Fibracol Plus 4x4 1 1 1 -Mepilex Border 2 1 Treatment Response Procedure Procedure Procedure Tolerated Well Tolerated Well Tolerated Well Pain Scale: 0-10 Numeric Is Patient Pain Free? Yes Yes Yes Teaching: Wound Center Dressing Your Wound -Person Taught Patient Patient -Teaching Method Discussion, Discussion Demonstration -Response to teaching Verbalize Verbalize understanding understanding WC - Visit Discharge Discharge Condition Stable Stable Stable Ambulatory Status Wheelchair Wheelchair Wheelchair Transportation [facility] Trans [facility] transport [place] Accompanied by SELF Medication Reconcilliation completed & No No provided to patient/care provider Clinical Summary of Care Provided Yes Yes Orders Sent Yes Assessment/Plan Assessment/Plan (1) Superficial ulcer of skin: CODE(S): L98.491 - Non-pressure chronic ulcer of skin of other sites limited to breakdown of skin (2) Venous insufficiency of both lower extremities: CODE(S): I87.2 - Venous insufficiency (chronic) (peripheral) (3) Chronic dermatitis: CODE(S): L30.9 - Dermatitis, unspecified (4) Venous insufficiency: CODE(S): I87.2 - Venous insufficiency (chronic) (peripheral) (5) Urticaria: CODE(S): L50.9 - Urticaria, unspecified (6) Skin ulcer of abdominal wall with fat layer exposed: CODE(S): L98.492 - Non-pressure chronic ulcer of skin of other sites with fat layer exposed PLAN: Plan Debridement done as documented above, procedure was well-tolerated. Improving, Continue Fibracol, cover with Adaptic and ABD. He was advised to keep his ulcers covered at all times. Continue other chronic management of bilateral lower extremity, continue leg elevation, adequate protein intake, optimal diabetes control, and other dietary/lifestyle modifications recommended. His questions were answered and he was advised to call with any further questions or concerns. Follow-up in 1 week. This note was generated with Page[employer]akes[employer] software. It may contain incorrect words, spelling, and punctuation that were not noted in checking the note before signing.
[2022-09-11 09:52] VITALS: BP 134/70; PULSE 72; RESP 18; TEMP 35.5; BMI 37.1
--- NOTE | 2022-09-11 10:50 | PN.PCM_ITS ---
History of Present Illness Date of Service: 09/11/22 Chief Complaint: Bilateral lower extremity pain, redness and swelling. Abdominal Ulcers. History of Wound: This is a 76 year-old white male who presents to the wound healing center today due to non healing bilateral lower extremity lesions. He states that his concerns have been present for over a year. Was seen at the wound center with no significant improvement and he was subsequently sent to see a Underground Drill Operator. He states that he was seen weekly and had a Zinc oxide wrap placed again without any improvement. His main concerns are bilateral lower extremity, rash, itching, irritation, redness and swelling. He was sent by his PCP to [facility] where he was seen by ID. He states that he was placed on IV antibiotics but again, he states that he does not believe it made any difference. He denies chills, fever or otherwise feeling of unwell. 06-05-22 He presents with new abdominal wound which he states has been present for at least 10 years. Had been seen at the wound center years ago for this. Never really achieved complete healing and patient also admits that he picks at it as well. Has had some ointment applied at his facility without significant improvement. He feels well otherwise. Progress of Wound: New area of opening on his right lower extremity, mechanism of injury/opening not known, thought to be a tear. Objective Data Objective Data Vital Signs: Vital Signs Temp Pulse Resp BP Pulse Ox O2 Del Method O2 Flow Rate 95.9 F L 72 18 134/70 H 98 Nasal Cannula 3 09/11/22 09:52 09/11/22 09:52 09/11/22 09:52 09/11/22 09:52 08/20/22 00:21 09/11/22 09:52 09/11/22 09:52 Oxygen Flow Rate (L/min) 3 Oxygen Delivery Method Nasal Cannula Weight: 230 lb Body Mass Index (BMI) 37.1 Charges/Coding Procedures Integumentary 111xxx-113xx: [id number] [place] subq tissue 20 sq cm/< Physical Exam Const alert, oriented x3 and no apparent distress General Appearance: cooperative, comfortable and well developed Orientation / Consciousness: awake, oriented to person, oriented to place and oriented to time HEENT normocephalic, head/scalp atraumatic and hearing grossly normal bilaterally Head and Scalp: normal to inspection, normocephalic and atraumatic Eyes General Eye: normal appearance of both eyes Neck full ROM and supple General: normal visual inspection Resp normal respiratory effort Effort and Inspection: able to speak in complete sentences Skin Wounds: wounds noted Neuro oriented x3, CN's II-XII intact bilaterally, moves all extremities and no focal motor deficits Psych mental status grossly normal Appearance: grossly normal Attitude: calm Activity / Motor Behavior: appropriate eye contact Debridement Note Debridement Note Wound debrided: Abdominal cluster Type of Debridement: Excisional debridement Anesthesia Used: 5% Lidocaine Gel Depth: Down to and including healthy tissue and in the subcutaneous layer Percentage of wound debrided: 100 Instrument Used: 5mm curette Tissue Removed: Slough and devitalized tissue Severity: Fat Layer Exposed Amount of bleeding with debridement: Mild Bleeding Controlled with: Pressure Patient tolerated procedure: Patient tolerated procedure well Post-Debridement Measurements and Additional Note: Post-Debridement Measurements/Treatment - Nurse 1 - General Ulcer Assessment Start: 08/21/22 09:57 Freq: Status: Active Protocol: BROOKE Activity Type Activity Date Activity User E-sign Co-sign Detail Recorded Client Recorded Date Recorded By Document 08/21/22 09:57 DL [id number] 08/21/22 10:02 DL Document 08/28/22 10:16 DL [id number] 08/28/22 10:21 DL Document 09/04/22 09:45 [facility] [id number] 09/04/22 09:53 [facility] Document 09/11/22 09:52 [facility] [id number] 09/11/22 10:08 [facility] 08/21/22 08/28/22 09/04/22 09:57 10:16 09:45 - Today's Visit Information Type of service Follow-up Visit Follow-up Visit Follow-up Visit (Physician/CASHIER TICKET SELLING (Physician/CASHIER TICKET SELLING (Physician/CASHIER TICKET SELLING ) ) ) Arrival Mode Wheelchair Stretcher Wheelchair Transfer Assistance Manual Manual Other Transfer Assist (Other) x2 x1 1 stand by Patient Identification Verified (Name & Yes Yes Yes ) Patient Requires Transmission-Based No No Precautions Finger Stick Blood Sugar(mg/dl) (if 138 133 indicated): Blood Sugar Stated by Stated by Patient Patient Height and Weight Body Mass Index (BMI) 37.1 37.1 37.1 BMI Classification Obese Obese Obese Vital Signs Temperature (97.8 F-99.1 F) 98 F 96.6 F L 95.8 F L Temperature Source Temporal Oral Temporal Pulse Rate (60-100) 76 77 73 Pulse Location Monitor Monitor Monitor Respiratory Rate (12-18) 20 H 18 18 Respiratory rate source Observation Observation Observation Oxygen Delivery Method Nasal Cannula Nasal Cannula O2 L/MIN (L/min) 3 3 Blood Pressure (90/60-120/80) 135/69 H 104/62 96/55 L Blood Pressure Mean (mm Hg) 91 76 68 Source Monitor Monitor Position Sitting Blood Pressure Location Right Arm History Since Last Visit- (Skip if this is Patient's initial visit) Have you changed medications since your No No last visit? Any new allergies or adverse reactions No No No Had a fall/change in ADL's that may No No No increase risk of falls Signs or symptoms of abuse and/or No No No neglect since last visit Have you been in the hospital since your No No No last visit? Has dressing in place as prescribed Yes Yes Yes Has compression in place as prescribed N/A N/A Has offloadiing in place as prescribed N/A N/A N/A Experienced any changes in pain level or No No No management Left Footwear Regular Shoe Right Footwear Regular Shoe Pain Scale: 0-10 Numeric Is Patient Pain Free? Yes Yes Yes 09/11/22 09:52 WC - Today's Visit Information Type of service Follow-up Visit (Physician/CASHIER TICKET SELLING ) Arrival Mode Wheelchair Transfer Assistance Other Transfer Assist (Other) 1 Patient Identification Verified (Name & Yes ) Patient Requires Transmission-Based No Precautions Finger Stick Blood Sugar(mg/dl) (if 226 indicated): Blood Sugar Stated by Patient Height and Weight Body Mass Index (BMI) 37.1 BMI Classification Obese Vital Signs Temperature (97.8 F-99.1 F) 95.9 F L Temperature Source Temporal Pulse Rate (60-100) 72 Pulse Location Monitor Respiratory Rate (12-18) 18 Respiratory rate source Observation Oxygen Delivery Method Nasal Cannula O2 L/MIN (L/min) 3 Blood Pressure (90/60-120/80) 134/70 H Blood Pressure Mean (mm Hg) 91 Source Monitor Position Sitting Blood Pressure Location Right Arm History Since Last Visit- (Skip if this is Patient's initial visit) Have you changed medications since your No last visit? Any new allergies or adverse reactions No Had a fall/change in ADL's that may increase risk of falls Signs or symptoms of abuse and/or No neglect since last visit Have you been in the hospital since your No last visit? Has dressing in place as prescribed Yes Has compression in place as prescribed Has offloadiing in place as prescribed N/A Experienced any changes in pain level or No management Left Footwear Diabetic Shoe Right Footwear Diabetic Shoe Pain Scale: 0-10 Numeric Is Patient Pain Free? Yes WC - Nurse 1 - General Ulcer Measurement Start: 08/21/22 09:57 Freq: Status: Active Protocol: Activity Type Activity Date Activity User E-sign Co-sign Detail Recorded Client Recorded Date Recorded By Document 08/21/22 09:57 DL [id number] 08/21/22 10:02 DL Document 08/28/22 10:16 DL [id number] 08/28/22 10:21 DL Document 09/04/22 09:45 BMF [id number] 09/04/22 09:53 BMF Document 09/11/22 09:52 BMF [id number] 09/11/22 10:08 BMF 08/21/22 08/28/22 09/04/22 09:57 10:16 09:45 Wound Center Nurse 1 #5- R LAT LE SKIN TEAR CLUSTER (PT SCRATCHES) -Combined with other wound -Current Size (cm) - Length -Current Size (cm) - Width -Current Size (cm) - Depth -Total Square Cm -Date of Last Picture (Recall this field) -Photo Taken -Epithelialization -Tunneling -Undermining/Tunneling -Circular Undermining -Exudate Amt -Exudate Type -Wound Margin -Granulation Amt -Granulation Quality -Slough/Fibrin -Necrosis Amt -Necrotic Tissue Type -Texture (Dae-wound Skin Appearance) -Moisture (Dea-wound Skin Appearance) -Color (Dea-wound Skin Appearance) -Temperature (Dea-wound Skin Appearance) -Tenderness on Palpation (Dea-wound Skin Appearance) -Ulcer Cleansing -Foul Odor after Cleansing -Anesthetic Used #4- abdominal cluster -Combined with other wound No -Current Size (cm) - Length 8 8.5 1.6 -Current Size (cm) - Width 15 15 0.6 -Current Size (cm) - Depth 0.1 0.1 0.1 -Total Square Cm 120 127.5 0.96 -Date of Last Picture (Recall this 09/04/22 field) -Photo Taken Yes No Yes -Epithelialization Medium 34-66% -Tunneling No -Undermining/Tunneling No -Circular Undermining No -Exudate Amt Small Medium Small -Exudate Type Serosanguineous Serosanguineous Serosanguineous -Wound Margin Distinct, Distinct, Flat & Intact Outline Outline Attached Attached -Granulation Amt Large (67-100%) Medium (34-66%) Medium (34-66%) -Granulation Quality [place] Pale,[place] Red -Slough/Fibrin Yes -Necrosis Amt None Present (0 Medium (34-66%) Medium (34-66%) %) -Necrotic Tissue Type Adherent Slough Adherent Slough -Structure Exposed N/A N/A -Texture (Dea-wound Skin Appearance) Scarring Scarring Assessed, Scarring -Moisture (Dea-wound Skin Appearance) No Abnormality Dry/Scaly Assessed,Dry/ Scaly -Color (Dea-wound Skin Appearance) No Abnormality Assessed Assessed -Temperature (Dea-wound Skin No Abnormality No Abnormality Appearance) (Pt Warm) (Pt Warm) -Tenderness on Palpation (Dea-wound No No No Skin Appearance) -Ulcer Cleansing Soap and Water Soap and Water Rinsed/ Irrigated with Saline -Foul Odor after Cleansing No No No -Anesthetic Used 5% Lidocaine 5% Lidocaine 5% Lidocaine Gel Gel Gel Right Calf (cm) Right Ankle (cm) Left Calf (cm) Left Ankle (cm) 09/11/22 09:52 Wound Center Nurse 1 #5- R LAT LE SKIN TEAR CLUSTER (PT SCRATCHES) -Combined with other wound No -Current Size (cm) - Length 14 -Current Size (cm) - Width 3.7 -Current Size (cm) - Depth 0.1 -Total Square Cm 51.8 -Date of Last Picture (Recall this 09/11/22 field) -Photo Taken Yes -Epithelialization None Present -Tunneling No -Undermining/Tunneling No -Circular Undermining No -Exudate Amt Small -Exudate Type Sanguineous -Wound Margin Distinct, Outline Attached -Granulation Amt Large (67-100%) -Granulation Quality Red -Slough/Fibrin Yes -Necrosis Amt Medium (34-66%) -Necrotic Tissue Type Eschar -Texture (Dea-wound Skin Appearance) Assessed, Scarring -Moisture (Dea-wound Skin Appearance) Assessed,Dry/ Scaly -Color (Dea-wound Skin Appearance) Assessed, Erythema -Temperature (Dea-wound Skin No Abnormality Appearance) (Pt Warm) -Tenderness on Palpation (Dea-wound No Skin Appearance) -Ulcer Cleansing Soap and Water -Foul Odor after Cleansing No -Anesthetic Used 5% Lidocaine Gel #4- abdominal cluster -Combined with other wound No -Current Size (cm) - Length 0.7 -Current Size (cm) - Width 0.7 -Current Size (cm) - Depth 0.1 -Total Square Cm 0.49 -Date of Last Picture (Recall this 09/11/22 field) -Photo Taken Yes -Epithelialization Small 1-33% -Tunneling No -Undermining/Tunneling No -Circular Undermining No -Exudate Amt Small -Exudate Type Serous -Wound Margin Distinct, Outline Attached -Granulation Amt Medium (34-66%) -Granulation Quality [place] -Slough/Fibrin Yes -Necrosis Amt Medium (34-66%) -Necrotic Tissue Type Adherent Slough -Structure Exposed -Texture (Dea-wound Skin Appearance) Assessed, Scarring -Moisture (Dea-wound Skin Appearance) Assessed -Color (Dea-wound Skin Appearance) Assessed -Temperature (Dea-wound Skin No Abnormality Appearance) (Pt Warm) -Tenderness on Palpation (Dea-wound No Skin Appearance) -Ulcer Cleansing Rinsed/ Irrigated with Saline -Foul Odor after Cleansing No -Anesthetic Used 5% Lidocaine Gel Right Calf (cm) 36.8 Right Ankle (cm) 21.7 Left Calf (cm) 37 Left Ankle (cm) 22.1 WC - Nurse 2 - General Ulcer CM Notes Start: 08/21/22 09:57 Freq: Status: Active Protocol: Activity Type Activity Date Activity User E-sign Co-sign Detail Recorded Client Recorded Date Recorded By Document 08/21/22 10:10 MW [id number] 08/21/22 10:13 MW Edit Result 08/21/22 10:10 MW (1) [id number] 08/22/22 06:32 PL Document 08/28/22 10:42 JF [id number] 08/28/22 10:45 JF Document 09/04/22 10:03 MW [id number] 09/04/22 10:06 MW Edit Result 09/04/22 10:03 MW (2) [id number] 09/05/22 07:01 PL Document 09/11/22 10:24 MW [id number] 09/11/22 10:31 MW (1) #4- abdominal cluster - Debridement, SubQ, ea addt'l 20sq cm => 5 or part thereof (2) #4- abdominal cluster - Debridement, SubQ, ea addt'l 20sq cm => 1 or part thereof 08/21/22 08/28/22 09/04/22 10:10 10:42 10:03 Wound Center Nurse 2 #5- R LAT LE SKIN TEAR CLUSTER (PT SCRATCHES) -Time -Correct Patient -Correct Side, Site, Position -Correct Procedure -Procedure Performed -Type of Procedure -Clinical Debridement -Tissue Removed -Post Debridement (cm) - Length -Post Debridement (cm) - Width -Post Debridement (cm) - Depth -Total Square (Post) (cm) -Area of Debridement (cm) - Length -Area of Debridement (cm) - Width -Total Square (Area) (cm) -Tunneling -Undermining/Tunneling -Circular Undermining -Wound/Ulcer Outcome -Ulcer Cleansing -Foul Odor after Cleansing -Bioengineered Tissue -Bleeding Controlled with -Treatment Response -Offloading -Debridement - Subq, 1st 20sq cm #4- abdominal cluster -Time 10:11 10:43 10:03 -Correct Patient Yes Yes Yes -Correct Side, Site, Position Yes Yes Yes -Correct Procedure Yes Yes Yes -Procedure Performed Yes Yes Yes -Type of Procedure Debridement Debridement Debridement -Clinical Debridement Subcutaneous Subcutaneous Subcutaneous -Tissue Removed Subcutaneous Subcutaneous Subcutaneous -Post Debridement (cm) - Length 7.5 8.5 8.0 -Post Debridement (cm) - Width 14.0 16.0 3.0 -Post Debridement (cm) - Depth 0.1 0.1 0.1 -Total Square (Post) (cm) 105.00 136.00 24.00 -Area of Debridement (cm) - Length 7.5 8.5 8.0 -Area of Debridement (cm) - Width 14.0 16.0 3.0 -Total Square (Area) (cm) 105.00 136.00 24.00 -Tunneling No No No -Undermining/Tunneling No No No -Circular Undermining No No No -Wound/Ulcer Outcome Not Healed Not Healed Not Healed -Ulcer Cleansing Rinsed/ Rinsed/ Rinsed/ Irrigated with Irrigated with Irrigated with Saline Saline Saline -Foul Odor after Cleansing No No No -Bioengineered Tissue No No No -Bleeding Controlled with Pressure Pressure Pressure -Treatment Response Procedure Procedure Procedure Tolerated Well Tolerated Well Tolerated Well -Offloading No No No -Debridement - Subq, 1st 20sq cm Yes Yes Yes -Debridement, SubQ, ea addt'l 20sq cm 5 6 1 or part thereof Pain Scale: 0-10 Numeric Is Patient Pain Free? Yes Yes Yes 09/11/22 10:24 Wound Center Nurse 2 #5- R LAT LE SKIN TEAR CLUSTER (PT SCRATCHES) -Time 10:24 -Correct Patient Yes -Correct Side, Site, Position Yes -Correct Procedure Yes -Procedure Performed Yes -Type of Procedure Debridement -Clinical Debridement Subcutaneous -Tissue Removed Subcutaneous -Post Debridement (cm) - Length 5.5 -Post Debridement (cm) - Width 2.0 -Post Debridement (cm) - Depth 0.1 -Total Square (Post) (cm) 11.00 -Area of Debridement (cm) - Length 5.5 -Area of Debridement (cm) - Width 2.0 -Total Square (Area) (cm) 11.00 -Tunneling No -Undermining/Tunneling No -Circular Undermining No -Wound/Ulcer Outcome Not Healed -Ulcer Cleansing Rinsed/ Irrigated with Saline -Foul Odor after Cleansing No -Bioengineered Tissue No -Bleeding Controlled with Pressure -Treatment Response Procedure Tolerated Well -Offloading No -Debridement - Subq, 1st 20sq cm No #4- abdominal cluster -Time 10:25 -Correct Patient Yes -Correct Side, Site, Position Yes -Correct Procedure Yes -Procedure Performed Yes -Type of Procedure Debridement -Clinical Debridement Subcutaneous -Tissue Removed Subcutaneous -Post Debridement (cm) - Length 7.0 -Post Debridement (cm) - Width 3.5 -Post Debridement (cm) - Depth 0.2 -Total Square (Post) (cm) 24.50 -Area of Debridement (cm) - Length 7.0 -Area of Debridement (cm) - Width 3.5 -Total Square (Area) (cm) 24.50 -Tunneling No -Undermining/Tunneling No -Circular Undermining No -Wound/Ulcer Outcome Not Healed -Ulcer Cleansing Rinsed/ Irrigated with Saline -Foul Odor after Cleansing No -Bioengineered Tissue No -Bleeding Controlled with Pressure -Treatment Response Procedure Tolerated Well -Offloading No -Debridement - Subq, 1st 20sq cm Yes -Debridement, SubQ, ea addt'l 20sq cm or part thereof Pain Scale: 0-10 Numeric Is Patient Pain Free? Yes - Nurse 3 - General Ulcer D/C NN Start: 08/21/22 09:57 Freq: Status: Active Protocol: Activity Type Activity Date Activity User E-sign Co-sign Detail Recorded Client Recorded Date Recorded By Document 08/21/22 10:13 MW [id number] 08/21/22 10:21 MW Document 08/28/22 10:53 DL [id number] 08/28/22 10:58 DL Document 09/04/22 10:06 MW [id number] 09/04/22 10:07 MW 08/21/22 08/28/22 09/04/22 10:13 10:53 10:06 Wound Care Center Nurse 3 #4- abdominal cluster -Ulcer Cleansing Rinsed/ Rinsed/ Rinsed/ Irrigated with Irrigated with Irrigated with Saline Saline Saline -Foul Odor after Cleansing No No No -Negative Pressure Wound Therapy N/A N/A -Primary Dressing Applied Fibracol Plus Fibracol Plus Fibracol Plus 4x4,NonAdherent 4x4,NonAdherent 4x4,NonAdherent Contact Layer, Contact Layer Contact Layer, Mepilex Border Mepilex Border -Primary Dressing Covered/Secured with Dry Gauze, Secured with Tape -Other Covering ABD PAD -Fibracol Plus 4x4 1 1 1 -Mepilex Border 2 1 Treatment Response Procedure Procedure Procedure Tolerated Well Tolerated Well Tolerated Well Pain Scale: 0-10 Numeric Is Patient Pain Free? Yes Yes Yes Teaching: Wound Center Dressing Your Wound -Person Taught Patient Patient -Teaching Method Discussion, Discussion Demonstration -Response to teaching Verbalize Verbalize understanding understanding WC - Visit Discharge Discharge Condition Stable Stable Stable Ambulatory Status Wheelchair Wheelchair Wheelchair Transportation [employer] [facility] [employer] [place] transport [place] Accompanied by SELF Medication Reconcilliation completed & No No provided to patient/care provider Clinical Summary of Care Provided Yes Yes Orders Sent Yes Additional Wound Wound debrided: Right Lower Extremity Type of Debridement: Excisional debridement Anesthesia Used: 4% Lidocaine Solution Depth: Down to and including healthy tissue and in the subcutaneous layer Percentage of wound debrided: 100 Instrument Used: 3mm curette Tissue Removed: Slough and devitalized tissue Severity: Fat Layer Exposed Amount of bleeding with debridement: Mild Bleeding Controlled with: Pressure Patient tolerated procedure: Patient tolerated procedure well Assessment/Plan Assessment/Plan (1) Superficial ulcer of skin: CODE(S): L98.491 - Non-pressure chronic ulcer of skin of other sites limited to breakdown of skin (2) Venous insufficiency of both lower extremities: CODE(S): I87.2 - Venous insufficiency (chronic) (peripheral) (3) Chronic dermatitis: CODE(S): L30.9 - Dermatitis, unspecified (4) Venous insufficiency: CODE(S): I87.2 - Venous insufficiency (chronic) (peripheral) (5) Urticaria: CODE(S): L50.9 - Urticaria, unspecified (6) Skin ulcer of abdominal wall with fat layer exposed: CODE(S): L98.492 - Non-pressure chronic ulcer of skin of other sites with fat layer exposed (7) Ulcer of right lower extremity with fat layer exposed: CODE(S): L97.912 - Non-pressure chronic ulcer of unspecified part of right lower leg with fat layer exposed PLAN: Plan Debridement done as documented above, procedure was well-tolerated. New right lower extremity ulceration/wound. Fibracol to all ulcers, cover with Adaptic and ABD. He was advised to keep his ulcers covered at all times. Continue other chronic management of bilateral lower extremity, continue leg elevation, adequate protein intake, optimal diabetes control, and other dietary/lifestyle modifications recommended. His questions were answered and he was advised to call with any further questions or concerns. Follow-up in 2 weeks. This note was generated with [employer] software. It may contain incorrect words, spelling, and punctuation that were not noted in checking the note before signing.
== END 2022-09-19 23:59 | disposition home or self-care (01) ==
LOC: WC 10:15
PROVIDERS: PCP Internal Medicine; Visit Provider Internal Medicine
DX: L98.491 Non-pressure chronic ulcer of skin of other sites limited to breakdown of skin (principal); L97.912 Non-pressure chronic ulcer of unspecified part of right lower leg with fat layer exposed; L98.492 Non-pressure chronic ulcer of skin of other sites with fat layer exposed; I87.2 Venous insufficiency (chronic) (peripheral); L50.9 Urticaria, unspecified; M79.605 Pain in left leg; L30.9 Dermatitis, unspecified; M79.604 Pain in right leg
CPT/HCPCS: 11042; 11045

== ENCOUNTER → 2022-09-15 | Outpatient (REF) | payer MEDICARE, MEDICAID, SELFPAY ==
[2022-09-15 08:00] LABS: INR Fingerstick 3.5; Prothrombin Time Fingerstick 36.7 SEC (11.7-14.9)
== END ==
LOC: OLS.SW 05:00
PROVIDERS: PCP Internal Medicine; Visit Provider Family Medicine
DX: I48.92 Unspecified atrial flutter (principal)
CPT/HCPCS: 36416; 85610

== ENCOUNTER → 2022-09-17 | Outpatient (REF) | payer MEDICARE, MEDICAID, SELFPAY ==
[2022-09-17 07:34] LABS: Hematocrit 35.4 % (40-54); Hemoglobin 11.6 g/dL (13.0-16.5); Mean Corp Hgb Conc 32.8 g/dL (32-36); Mean Corpuscular Hgb 32.4 pg (27.0-32.0); Mean Corpuscular Volume 98.9 fL (80-94); Mean Platelet Vol. 11.2 fl (6.2-12.0); Platelet Count 267 K/mm3 (150-450); RBC Distribution Width CV 14.8 % (11.6-14.6); RBC Distribution Width SD 54.4 fl (35.1-43.9); Red Blood Count 3.58 M/mm3 (4.6-6.2); White Blood Count 12.8 K/mm3 (4.4-11.0)
[2022-09-17 07:46] LABS: Anion Gap 9 (5-15); BUN 71 mg/dL (7-18); BUN/Creat Ratio 14.8 RATIO (10-20); Calcium,Total 9.2 mg/dL (8.5-10.1); Chloride 94 mmol/L (98-107); EST Glomerular Filtration Rate 13 mL/min (>60); Est Glom Filt Rate - Afr Amer 15 mL/min (>60); Glucose 222 mg/dL (74-106); Phosphorus 4.7 mg/dL (2.5-4.9); Potassium 4.2 mmol/L (3.5-5.1); Sodium Level 132 mmol/L (136-145)
[2022-09-17 10:37] LABS: Hemoglobin A1c 9.3 % (3.8-5.6)
== END ==
LOC: OLS.SW 05:00
PROVIDERS: PCP Internal Medicine; Visit Provider Family Medicine
DX: E11.9 Type 2 diabetes mellitus without complications (principal)
CPT/HCPCS: 36415; 80048; 83036; 84100; 85027

== ENCOUNTER → 2022-09-18 | Outpatient (REF) | payer MEDICARE, MEDICAID, SELFPAY ==
[2022-09-18 09:12] LABS: Vitamin D,25 Hydroxy 49.2 ng/mL
[2022-09-18 09:17] LABS: Thyroid Stim Hormone (TSH) 0.82 uIU/mL (0.358-3.74)
== END ==
LOC: OLS.SW 05:00
PROVIDERS: PCP Internal Medicine; Visit Provider Family Medicine
DX: E55.9 Vitamin D deficiency, unspecified (principal); E03.9 Hypothyroidism, unspecified
CPT/HCPCS: 36415; 82306; 84443

== ENCOUNTER → 2022-09-22 | Outpatient (REF) | payer MEDICARE, MEDICAID, SELFPAY ==
[2022-09-22 08:11] LABS: INR Fingerstick 2.9
== END ==
LOC: OLS.SW 05:00
PROVIDERS: PCP Family Medicine; Visit Provider Family Medicine
DX: I48.92 Unspecified atrial flutter (principal); Z79.01 Long term (current) use of anticoagulants
CPT/HCPCS: 36416; 85610

== ENCOUNTER → 2022-10-06 | Outpatient (REF) | payer MEDICARE, MEDICAID, SELFPAY ==
[2022-10-06 08:05] LABS: INR Fingerstick 4.3; Prothrombin Time Fingerstick 44.8 SEC (11.7-14.9)
[2022-10-06 09:23] LABS: International Normalized Ratio 3.6; Prothrombin Time (Protime)PT. 35.3 SECONDS (11.7-14.9)
== END ==
LOC: OLS.SW 04:00
PROVIDERS: PCP Family Medicine; Referring Provider Family Medicine; Visit Provider Family Medicine
DX: I48.91 Unspecified atrial fibrillation (principal); Z79.01 Long term (current) use of anticoagulants
CPT/HCPCS: 36415; 36416; 85610

== ENCOUNTER 2022-10-09 10:15 | Outpatient (RCR) | payer MEDICARE, MEDICAID, SELFPAY ==
[2022-09-20 01:37] VITALS: BP 134/70; PULSE 72; RESP 18; TEMP 35.5; O2SAT 98; BMI 37.1
[2022-09-25 09:57] VITALS: BP 114/64; PULSE 89; RESP 16; TEMP 35.2; BMI 37.1
--- NOTE | 2022-09-25 11:36 | PN.PCM_ITS ---
History of Present Illness Date of Service: 09/25/22 Chief Complaint: Bilateral lower extremity pain, redness and swelling. Abdominal Ulcers. History of Wound: This is a 76 year-old white male who presents to the wound healing center today due to non healing bilateral lower extremity lesions. He states that his concerns have been present for over a year. Was seen at the wound center with no significant improvement and he was subsequently sent to see a School Curriculum Developer. He states that he was seen weekly and had a Zinc oxide wrap placed again without any improvement. His main concerns are bilateral lower extremity, rash, itching, irritation, redness and swelling. He was sent by his PCP to [facility] where he was seen by ID. He states that he was placed on IV antibiotics but again, he states that he does not believe it made any difference. He denies chills, fever or otherwise feeling of unwell. 06-05-22 He presents with new abdominal wound which he states has been present for at least 10 years. Had been seen at the wound center years ago for this. Never really achieved complete healing and patient also admits that he picks at it as well. Has had some ointment applied at his facility without significant improvement. He feels well otherwise. Progress of Wound: Stable ulcers, no new concerns at this time. Objective Data Objective Data Vital Signs: Vital Signs Temp Pulse Resp BP Pulse Ox O2 Del Method O2 Flow Rate 95.3 F L 89 16 114/64 98 Room Air 3 09/25/22 09:57 09/25/22 09:57 09/25/22 09:57 09/25/22 09:57 09/20/22 01:37 09/25/22 09:57 09/20/22 01:37 Oxygen Flow Rate (L/min) 3 Oxygen Delivery Method Room Air Weight: 230 lb Body Mass Index (BMI) 37.1 Charges/Coding Procedures Integumentary 111xxx-113xx: [id number] Cleopatra subq tissue 20 sq cm/< Add On Codes: 01564 Cleopatra subq tissue add-on (x1 additional square centimeter debrided, please refer to clinical note.) Physical Exam Const alert, oriented x3 and no apparent distress General Appearance: cooperative, comfortable and well developed Orientation / Consciousness: awake, oriented to person, oriented to place and oriented to time HEENT normocephalic, head/scalp atraumatic and hearing grossly normal bilaterally Head and Scalp: normal to inspection, normocephalic and atraumatic Eyes General Eye: normal appearance of both eyes Neck full ROM and supple General: normal visual inspection Resp normal respiratory effort Effort and Inspection: able to speak in complete sentences Skin Wounds: wounds noted Neuro oriented x3, CN's II-XII intact bilaterally, moves all extremities and no focal motor deficits Psych mental status grossly normal Appearance: grossly normal Attitude: calm Activity / Motor Behavior: appropriate eye contact Debridement Note Debridement Note Wound debrided: Abdominal cluster Type of Debridement: Excisional debridement Anesthesia Used: 5% Lidocaine Gel Depth: Down to and including healthy tissue and in the subcutaneous layer Percentage of wound debrided: 100 Instrument Used: 5mm curette Tissue Removed: Slough and devitalized tissue Severity: Fat Layer Exposed Amount of bleeding with debridement: Mild Bleeding Controlled with: Pressure Patient tolerated procedure: Patient tolerated procedure well Post-Debridement Measurements and Additional Note: Post-Debridement Measurements/Treatment - Nurse 1 - General Ulcer Assessment Start: 09/25/22 09:57 Freq: Status: Active Protocol: BROOKE Activity Type Activity Date Activity User E-sign Co-sign Detail Recorded Client Recorded Date Recorded By Document 09/25/22 09:[address] [facility] [id number] 09/25/22 10:[address] [facility] 09/25/22 09:57 - Today's Visit Information Type of service Follow-up Visit (Physician/[facility] ) Arrival Mode Wheelchair Transfer Assistance Other Transfer Assist (Other) stANDBY Patient Identification Verified (Name & Yes ) Patient Requires Transmission-Based No Precautions Height and Weight Body Mass Index (BMI) 37.1 BMI Classification Obese Vital Signs Temperature (97.8 F-99.1 F) 95.3 F L Temperature Source Temporal Pulse Rate (60-100) 89 Pulse Location Monitor Respiratory Rate (12-18) 16 Respiratory rate source Observation Oxygen Delivery Method Room Air Blood Pressure (90/60-120/80) 114/64 Blood Pressure Mean (mm Hg) 80 Source Monitor Position Sitting Blood Pressure Location Left Arm History Since Last Visit- (Skip if this is Patient's initial visit) Have you changed medications since your No last visit? Any new allergies or adverse reactions No Had a fall/change in ADL's that may No increase risk of falls Signs or symptoms of abuse and/or No neglect since last visit Have you been in the hospital since your No last visit? Has dressing in place as prescribed Yes Has compression in place as prescribed No Has offloadiing in place as prescribed N/A Experienced any changes in pain level or No management Left Footwear Diabetic Shoe Right Footwear Diabetic Shoe Pain Scale: 0-10 Numeric Is Patient Pain Free? Yes WC - Nurse 1 - General Ulcer Measurement Start: 09/25/22 09:57 Freq: Status: Active Protocol: Activity Type Activity Date Activity User E-sign Co-sign Detail Recorded Client Recorded Date Recorded By Document 09/25/22 09:[address] [facility] [id number] 09/25/22 10:[address] [facility] 09/25/22 09:57 Wound Center Nurse 1 #5- R LAT LE SKIN TEAR CLUSTER (PT SCRATCHES) -Combined with other wound No -Current Size (cm) - Length 19.7 -Current Size (cm) - Width 2.4 -Current Size (cm) - Depth 0.1 -Total Square Cm 47.28 -Photo Taken No -Epithelialization Medium 34-66% -Tunneling No -Undermining/Tunneling No -Circular Undermining No -Exudate Amt Small -Exudate Type Sanguineous -Wound Margin Flat & Intact -Granulation Amt Medium (34-66%) -Granulation Quality Red -Slough/Fibrin Yes -Necrosis Amt Medium (34-66%) -Necrotic Tissue Type Eschar -Texture (Dea-wound Skin Appearance) Assessed, Scarring -Moisture (Dea-wound Skin Appearance) Assessed -Color (Dea-wound Skin Appearance) Assessed -Temperature (Dea-wound Skin No Abnormality Appearance) (Pt Warm) -Tenderness on Palpation (Dea-wound No Skin Appearance) -Ulcer Cleansing Rinsed/ Irrigated with Saline -Foul Odor after Cleansing No -Anesthetic Used 5% Lidocaine Gel #4- abdominal cluster -Combined with other wound No -Current Size (cm) - Length 15 -Current Size (cm) - Width 20.1 -Current Size (cm) - Depth 0.1 -Total Square Cm 301.5 -Photo Taken No -Epithelialization Small 1-33% -Tunneling No -Undermining/Tunneling No -Circular Undermining No -Exudate Amt Medium -Exudate Type Serous -Wound Margin Distinct, Outline Attached -Granulation Amt Medium (34-66%) -Granulation Quality Red -Slough/Fibrin Yes -Necrosis Amt Medium (34-66%) -Necrotic Tissue Type Eschar -Texture (Dea-wound Skin Appearance) Assessed, Scarring -Moisture (Dea-wound Skin Appearance) Assessed -Color (Dea-wound Skin Appearance) Assessed -Temperature (Dea-wound Skin No Abnormality Appearance) (Pt Warm) -Tenderness on Palpation (Dea-wound No Skin Appearance) -Ulcer Cleansing Rinsed/ Irrigated with Saline -Foul Odor after Cleansing No -Anesthetic Used 5% Lidocaine Gel Right Calf (cm) 36 Right Ankle (cm) 22.7 Left Calf (cm) 36.3 Left Ankle (cm) 21.8 WC - Nurse 2 - General Ulcer CM Notes Start: 09/25/22 09:57 Freq: Status: Active Protocol: Activity Type Activity Date Activity User E-sign Co-sign Detail Recorded Client Recorded Date Recorded By Document 09/25/22 11:04 MW [id number] 09/25/22 11:09 MW Edit Result 09/25/22 11:04 MW (1) [id number] 09/25/22 11:09 MW (1) #4- abdominal cluster - Debridement, SubQ, ea addt'l 20sq cm => 1 or part thereof 09/25/22 11:04 Wound Center Nurse 2 #5- R LAT LE SKIN TEAR CLUSTER (PT SCRATCHES) -Time 11:05 -Correct Patient Yes -Correct Side, Site, Position Yes -Correct Procedure Yes -Procedure Performed No -Tunneling No -Undermining/Tunneling No -Circular Undermining No -Wound/Ulcer Outcome Not Healed -Ulcer Cleansing Rinsed/ Irrigated with Saline #4- abdominal cluster -Time 11:05 -Correct Patient Yes -Correct Side, Site, Position Yes -Correct Procedure Yes -Procedure Performed Yes -Type of Procedure Debridement -Clinical Debridement Subcutaneous -Tissue Removed Subcutaneous -Post Debridement (cm) - Length 8.0 -Post Debridement (cm) - Width 3.0 -Post Debridement (cm) - Depth 0.1 -Total Square (Post) (cm) 24.00 -Area of Debridement (cm) - Length 8.0 -Area of Debridement (cm) - Width 3.0 -Total Square (Area) (cm) 24.00 -Tunneling No -Undermining/Tunneling No -Circular Undermining No -Wound/Ulcer Outcome Not Healed -Ulcer Cleansing Rinsed/ Irrigated with Saline -Foul Odor after Cleansing No -Bioengineered Tissue No -Bleeding Controlled with Pressure -Treatment Response Procedure Tolerated Well -Offloading No -Debridement - Subq, 1st 20sq cm Yes -Debridement, SubQ, ea addt'l 20sq cm 1 or part thereof Pain Scale: 0-10 Numeric Is Patient Pain Free? Yes - Nurse 3 - General Ulcer D/C NN Start: 09/25/22 09:57 Freq: Status: Active Protocol: Activity Type Activity Date Activity User E-sign Co-sign Detail Recorded Client Recorded Date Recorded By Document 09/25/22 11:[address] [facility] [id number] 09/25/22 11:[address] [facility] 09/25/22 11:22 Wound Care Center Nurse 3 #5- R LAT LE SKIN TEAR CLUSTER (PT SCRATCHES) -Ulcer Cleansing Rinsed/ Irrigated with Saline -Foul Odor after Cleansing No -Primary Dressing Applied Fibracol Plus 4x4,NonAdherent Contact Layer -Primary Dressing Covered/Secured with Dry Gauze & Roll Gauze, Secured with Tape -Fibracol Plus 4x4 1 #4- abdominal cluster -Ulcer Cleansing Rinsed/ Irrigated with Saline -Foul Odor after Cleansing No -Primary Dressing Applied Fibracol Plus 4x4,NonAdherent Contact Layer -Other Dressing ABD -Primary Dressing Covered/Secured with Secured with Tape -Fibracol Plus 4x4 0 Pain Scale: 0-10 Numeric Is Patient Pain Free? Yes - Visit Discharge Discharge Condition Stable Ambulatory Status Ambulatory, Walker Transportation F Facility Type Demolition [facility] Operator Care Facility Assessment/Plan Assessment/Plan (1) Superficial ulcer of skin: CODE(S): L98.491 - Non-pressure chronic ulcer of skin of other sites limited to breakdown of skin (2) Venous insufficiency of both lower extremities: CODE(S): I87.2 - Venous insufficiency (chronic) (peripheral) (3) Chronic dermatitis: CODE(S): L30.9 - Dermatitis, unspecified (4) Venous insufficiency: CODE(S): I87.2 - Venous insufficiency (chronic) (peripheral) (5) Urticaria: CODE(S): L50.9 - Urticaria, unspecified (6) Skin ulcer of abdominal wall with fat layer exposed: CODE(S): L98.492 - Non-pressure chronic ulcer of skin of other sites with fat layer exposed (7) Ulcer of right lower extremity with fat layer exposed: CODE(S): L97.912 - Non-pressure chronic ulcer of unspecified part of right lower leg with fat layer exposed PLAN: Plan Debridement done as documented above, procedure was well-tolerated. Abdominal and right lower extremity ulcers are stable. Continue Fibracol to all ulcers, cover with Adaptic and ABD. He was advised to keep his ulcers covered at all times. Continue other chronic management of bilateral lower extremity, continue leg elevation, adequate protein intake, optimal diabetes control, and other dietary/lifestyle modifications recommended. His questions were answered and he was advised to call with any further questions or concerns. Follow-up in 1 week. This note was generated with [employer] dictation software. It may contain incorrect words, spelling, and punctuation that were not noted in checking the note before signing.
[2022-10-02 10:03] VITALS: BP 102/63; PULSE 74; RESP 16; TEMP 34.2; BMI 37.1
--- NOTE | 2022-10-02 10:58 | PCM.WC.PN ---
History of Present Illness Date of Service: 10/02/22 Chief Complaint: Bilateral lower extremity pain, redness and swelling. Abdominal Ulcers. History of Wound: This is a 76 year-old white male who presents to the wound healing center today due to non healing bilateral lower extremity lesions. He states that his concerns have been present for over a year. Was seen at the wound center with no significant improvement and he was subsequently sent to see a Supervisor [employer]. He states that he was seen weekly and had a Zinc oxide wrap placed again without any improvement. His main concerns are bilateral lower extremity, rash, itching, irritation, redness and swelling. He was sent by his PCP to [facility] where he was seen by ID. He states that he was placed on IV antibiotics but again, he states that he does not believe it made any difference. He denies chills, fever or otherwise feeling of unwell. 06-05-22 He presents with new abdominal wound which he states has been present for at least 10 years. Had been seen at the wound center years ago for this. Never really achieved complete healing and patient also admits that he picks at it as well. Has had some ointment applied at his facility without significant improvement. He feels well otherwise. Progress of Wound: Stable ulcers, no new concerns at this time. Objective Data Objective Data Vital Signs: Vital Signs Temp Pulse Resp BP Pulse Ox O2 Del Method O2 Flow Rate 93.5 F L 74 16 102/63 98 Room Air 3 10/02/22 10:03 10/02/22 10:03 10/02/22 10:03 10/02/22 10:03 09/20/22 01:37 10/02/22 10:03 09/20/22 01:37 Oxygen Flow Rate (L/min) 3 Oxygen Delivery Method Room Air Weight: 230 lb Body Mass Index (BMI) 37.1 Charges/Coding Procedures Integumentary 111xxx-113xx: 02080 Cleopatra subq tissue 20 sq cm/< Add On Codes: 96723 Cleopatra subq tissue add-on (x1 additional square centimeter debrided, please refer to clinical note) Physical Exam Const alert, oriented x3 and no apparent distress General Appearance: cooperative, comfortable and well developed Orientation / Consciousness: awake, oriented to person, oriented to place and oriented to time HEENT normocephalic, head/scalp atraumatic and hearing grossly normal bilaterally Head and Scalp: normal to inspection, normocephalic and atraumatic Eyes General Eye: normal appearance of both eyes Neck full ROM and supple General: normal visual inspection Resp normal respiratory effort Effort and Inspection: able to speak in complete sentences Skin Wounds: wounds noted Neuro oriented x3, CN's II-XII intact bilaterally, moves all extremities and no focal motor deficits Psych mental status grossly normal Appearance: grossly normal Attitude: calm Activity / Motor Behavior: appropriate eye contact Debridement Note Debridement Note Wound debrided: Abdominal cluster Type of Debridement: Excisional debridement Anesthesia Used: 5% Lidocaine Gel Depth: Down to and including healthy tissue and in the subcutaneous layer Percentage of wound debrided: 100 Instrument Used: 5mm curette Tissue Removed: Slough and devitalized tissue Severity: Fat Layer Exposed Amount of bleeding with debridement: Mild Bleeding Controlled with: Pressure Patient tolerated procedure: Patient tolerated procedure well Post-Debridement Measurements and Additional Note: Post-Debridement Measurements/Treatment - Nurse 1 - General Ulcer Assessment Start: 09/25/22 09:57 Freq: Status: Active Protocol: BROOKE Activity Type Activity Date Activity User E-sign Co-sign Detail Recorded Client Recorded Date Recorded By Document 09/25/22 09:57 [facility] [id number] 09/25/22 10:06 [facility] Document 10/02/22 10:03 [facility] [id number] 10/02/22 10:16 [facility] 09/25/22 10/02/22 09:57 10:03 - Today's Visit Information Type of service Follow-up Visit Follow-up Visit (Physician/SUSTAINMENT LOGISTICS ANALYST (Physician/SUSTAINMENT LOGISTICS ANALYST ) ) Arrival Mode Wheelchair Wheelchair Transfer Assistance Other Other Transfer Assist (Other) stANDBY STAND BY Patient Identification Verified (Name & Yes Yes ) Patient Requires Transmission-Based No No Precautions Height and Weight Body Mass Index (BMI) 37.1 37.1 BMI Classification Obese Obese Vital Signs Temperature (97.8 F-99.1 F) 95.3 F L 93.5 F L Temperature Source Temporal Temporal Pulse Rate (60-100) 89 74 Pulse Location Monitor Monitor Respiratory Rate (12-18) 16 16 Respiratory rate source Observation Observation Oxygen Delivery Method Room Air Room Air Blood Pressure (90/60-120/80) 114/64 102/63 Blood Pressure Mean (mm Hg) 80 76 Source Monitor Monitor Position Sitting Sitting Blood Pressure Location Left Arm Right Arm History Since Last Visit- (Skip if this is Patient's initial visit) Have you changed medications since your No No last visit? Any new allergies or adverse reactions No No Had a fall/change in ADL's that may No Yes increase risk of falls Signs or symptoms of abuse and/or No No neglect since last visit Have you been in the hospital since your No No last visit? Has dressing in place as prescribed Yes No Has compression in place as prescribed No No Has offloadiing in place as prescribed N/A N/A Experienced any changes in pain level or No No management Left Footwear Diabetic Shoe Diabetic Shoe Right Footwear Diabetic Shoe Diabetic Shoe Pain Scale: 0-10 Numeric Is Patient Pain Free? Yes Yes WC - Nurse 1 - General Ulcer Measurement Start: 09/25/22 09:57 Freq: Status: Active Protocol: Activity Type Activity Date Activity User E-sign Co-sign Detail Recorded Client Recorded Date Recorded By Document 09/25/22 09:57 [facility] [id number] 09/25/22 10:06 [facility] Document 10/02/22 10:03 [facility] [id number] 10/02/22 10:16 [facility] 09/25/22 10/02/22 09:57 10:03 Wound Center Nurse 1 #5- R LAT LE SKIN TEAR CLUSTER (PT SCRATCHES) -Combined with other wound No No -Current Size (cm) - Length 19.7 6.5 -Current Size (cm) - Width 2.4 3 -Current Size (cm) - Depth 0.1 0.1 -Total Square Cm 47.28 19.5 -Date of Last Picture (Recall this 10/02/22 field) -Photo Taken No Yes -Epithelialization Medium 34-66% Small 1-33% -Tunneling No No -Undermining/Tunneling No No -Circular Undermining No No -Exudate Amt Small Small -Exudate Type Sanguineous Sanguineous -Wound Margin Flat & Intact Distinct, Outline Attached -Granulation Amt Medium (34-66%) Medium (34-66%) -Granulation Quality Red Red -Slough/Fibrin Yes Yes -Necrosis Amt Medium (34-66%) Medium (34-66%) -Necrotic Tissue Type Eschar Eschar -Texture (Dea-wound Skin Appearance) Assessed, Assessed, Scarring Scarring -Moisture (Dea-wound Skin Appearance) Assessed Assessed,Dry/ Scaly -Color (Dea-wound Skin Appearance) Assessed Assessed -Temperature (Dea-wound Skin No Abnormality No Abnormality Appearance) (Pt Warm) (Pt Warm) -Tenderness on Palpation (Dea-wound No No Skin Appearance) -Ulcer Cleansing Rinsed/ Soap and Water Irrigated with Saline -Foul Odor after Cleansing No No -Anesthetic Used 5% Lidocaine 5% Lidocaine Gel Gel #4- abdominal cluster -Combined with other wound No No -Current Size (cm) - Length 15 18.3 -Current Size (cm) - Width 20.1 24.5 -Current Size (cm) - Depth 0.1 0.1 -Total Square Cm 301.5 448.35 -Date of Last Picture (Recall this 10/02/22 field) -Photo Taken No Yes -Epithelialization Small 1-33% Small 1-33% -Tunneling No No -Undermining/Tunneling No No -Circular Undermining No No -Exudate Amt Medium Small -Exudate Type Serous Serosanguineous -Wound Margin Distinct, Distinct, Outline Outline Attached Attached -Granulation Amt Medium (34-66%) Medium (34-66%) -Granulation Quality Red Red -Slough/Fibrin Yes Yes -Necrosis Amt Medium (34-66%) Medium (34-66%) -Necrotic Tissue Type Eschar Eschar -Texture (Dea-wound Skin Appearance) Assessed, Assessed, Scarring Scarring -Moisture (Dea-wound Skin Appearance) Assessed Assessed -Color (Dea-wound Skin Appearance) Assessed Assessed -Temperature (Dea-wound Skin No Abnormality No Abnormality Appearance) (Pt Warm) (Pt Warm) -Tenderness on Palpation (Dea-wound No No Skin Appearance) -Ulcer Cleansing Rinsed/ Soap and Water Irrigated with Saline -Foul Odor after Cleansing No No -Anesthetic Used 5% Lidocaine 5% Lidocaine Gel Gel Right Calf (cm) 36 Right Ankle (cm) 22.7 Left Calf (cm) 36.3 Left Ankle (cm) 21.8 WC - Nurse 2 - General Ulcer CM Notes Start: 09/25/22 09:57 Freq: Status: Active Protocol: Activity Type Activity Date Activity User E-sign Co-sign Detail Recorded Client Recorded Date Recorded By Document 09/25/22 11:04 MW [id number] 09/25/22 11:09 MW Edit Result 09/25/22 11:04 MW (1) [id number] 09/25/22 11:09 MW Document 10/02/22 10:30 MW [id number] 10/02/22 10:40 MW (1) #4- abdominal cluster - Debridement, SubQ, ea addt'l 20sq cm => 1 or part thereof 09/25/22 10/02/22 11:04 10:30 Wound Center Nurse 2 #5- R LAT LE SKIN TEAR CLUSTER (PT SCRATCHES) -Time 11:05 10:31 -Correct Patient Yes Yes -Correct Side, Site, Position Yes Yes -Correct Procedure Yes Yes -Procedure Performed No No -Tunneling No No -Undermining/Tunneling No No -Circular Undermining No No -Wound/Ulcer Outcome Not Healed Not Healed -Ulcer Cleansing Rinsed/ Irrigated with Saline #4- abdominal cluster -Time 11:05 10:30 -Correct Patient Yes Yes -Correct Side, Site, Position Yes Yes -Correct Procedure Yes Yes -Procedure Performed Yes Yes -Type of Procedure Debridement Debridement -Clinical Debridement Subcutaneous Subcutaneous -Tissue Removed Subcutaneous Subcutaneous -Post Debridement (cm) - Length 8.0 8.0 -Post Debridement (cm) - Width 3.0 3.5 -Post Debridement (cm) - Depth 0.1 0.1 -Total Square (Post) (cm) 24.00 28.00 -Area of Debridement (cm) - Length 8.0 8.0 -Area of Debridement (cm) - Width 3.0 3.5 -Total Square (Area) (cm) 24.00 28.00 -Tunneling No No -Undermining/Tunneling No -Circular Undermining No No -Wound/Ulcer Outcome Not Healed Not Healed -Ulcer Cleansing Rinsed/ Rinsed/ Irrigated with Irrigated with Saline Saline -Foul Odor after Cleansing No No -Bioengineered Tissue No No -Bleeding Controlled with Pressure Pressure -Treatment Response Procedure Procedure Tolerated Well Tolerated Well -Offloading No No -Debridement - Subq, 1st 20sq cm Yes Yes -Debridement, SubQ, ea addt'l 20sq cm 1 or part thereof Pain Scale: 0-10 Numeric Is Patient Pain Free? Yes Yes WC - Nurse 3 - General Ulcer D/C NN Start: 09/25/22 09:57 Freq: Status: Active Protocol: Activity Type Activity Date Activity User E-sign Co-sign Detail Recorded Client Recorded Date Recorded By Document 09/25/22 11:22 [facility] [id number] 09/25/22 11:24 [facility] Document 10/02/22 10:50 [facility] [id number] 10/02/22 10:51 [facility] 09/25/22 10/02/22 11:22 10:50 Wound Care Center Nurse 3 #5- R LAT LE SKIN TEAR CLUSTER (PT SCRATCHES) -Ulcer Cleansing Rinsed/ Rinsed/ Irrigated with Irrigated with Saline Saline -Foul Odor after Cleansing No No -Primary Dressing Applied Fibracol Plus Fibracol Plus 4x4,NonAdherent 4x4,NonAdherent Contact Layer Contact Layer -Other Dressing PER MW RN -Primary Dressing Covered/Secured with Dry Gauze & Dry Gauze, Roll Gauze, Secured with Secured with Tape Tape -Fibracol Plus 4x4 1 1 #4- abdominal cluster -Ulcer Cleansing Rinsed/ Rinsed/ Irrigated with Irrigated with Saline Saline -Foul Odor after Cleansing No -Primary Dressing Applied Fibracol Plus Fibracol Plus 4x4,NonAdherent 4x4,NonAdherent Contact Layer Contact Layer -Other Dressing ABD -Primary Dressing Covered/Secured with Secured with Secured with Tape Tape -Other Covering ABD -Fibracol Plus 4x4 0 0 BLE -Tubular Bandage Single Layer -Size of Tubigrip Used Size D -Size D ($) 2 -Other PT STATES HE RAR[facility] WEARS AT [facility] Treatment Response Procedure Tolerated Well Pain Scale: 0-10 Numeric Is Patient Pain Free? Yes Yes WC - Visit Discharge Discharge Condition Stable Stable Ambulatory Status Ambulatory, Wheelchair Walker Transportation [facility] Facility Type [facility] Facility Assessment/Plan Assessment/Plan (1) Superficial ulcer of skin: CODE(S): L98.491 - Non-pressure chronic ulcer of skin of other sites limited to breakdown of skin (2) Venous insufficiency of both lower extremities: CODE(S): I87.2 - Venous insufficiency (chronic) (peripheral) (3) Chronic dermatitis: CODE(S): L30.9 - Dermatitis, unspecified (4) Venous insufficiency: CODE(S): I87.2 - Venous insufficiency (chronic) (peripheral) (5) Urticaria: CODE(S): L50.9 - Urticaria, unspecified (6) Skin ulcer of abdominal wall with fat layer exposed: CODE(S): L98.492 - Non-pressure chronic ulcer of skin of other sites with fat layer exposed (7) Ulcer of right lower extremity with fat layer exposed: CODE(S): L97.912 - Non-pressure chronic ulcer of unspecified part of right lower leg with fat layer exposed PLAN: Plan Debridement done as documented above, procedure was well-tolerated. Abdominal and right lower extremity ulcers are stable. Continue Fibracol to all ulcers, cover with Adaptic and ABD. He was advised to keep his ulcers covered at all times. Continue other chronic management of bilateral lower extremity. Tubigrip for edema management, continue leg elevation, adequate protein intake, optimal diabetes control, and other dietary/lifestyle modifications recommended. His questions were answered and he was advised to call with any further questions or concerns. Follow-up in 1 week. Consider discharge from this facility next week as he constantly re- picks his skin. This can be managed at his facility. This note was generated with [email or web address] dictation software. It may contain incorrect words, spelling, and punctuation that were not noted in checking the note before signing.
[2022-10-09 10:11] VITALS: BP 102/64; PULSE 74; RESP 18; TEMP 35.7; BMI 37.1
--- NOTE | 2022-10-09 10:57 | PCM.WC.PN ---
History of Present Illness Date of Service: 10/09/22 Chief Complaint: Bilateral lower extremity pain, redness and swelling. Abdominal Ulcers. History of Wound: This is a 76 year-old white male who presents to the wound healing center today due to non healing bilateral lower extremity lesions. He states that his concerns have been present for over a year. Was seen at the wound center with no significant improvement and he was subsequently sent to see a Business And Services Instructor. He states that he was seen weekly and had a Zinc oxide wrap placed again without any improvement. His main concerns are bilateral lower extremity, rash, itching, irritation, redness and swelling. He was sent by his PCP to [facility] where he was seen by ID. He states that he was placed on IV antibiotics but again, he states that he does not believe it made any difference. He denies chills, fever or otherwise feeling of unwell. 06-05-22 He presents with new abdominal wound which he states has been present for at least 10 years. Had been seen at the wound center years ago for this. Never really achieved complete healing and patient also admits that he picks at it as well. Has had some ointment applied at his facility without significant improvement. He feels well otherwise. Progress of Wound: No new concerns at this time. Superficial wounds from picking at his skin. Objective Data Objective Data Vital Signs: Vital Signs Temp Pulse Resp BP Pulse Ox O2 Del Method O2 Flow Rate 96.2 F L 74 18 102/64 98 Room Air 3 10/09/22 10:11 10/09/22 10:11 10/09/22 10:11 10/09/22 10:11 09/20/22 01:37 10/09/22 10:11 09/20/22 01:37 Oxygen Flow Rate (L/min) 3 Oxygen Delivery Method Room Air Weight: 230 lb Body Mass Index (BMI) 37.1 Charges/Coding Visit Charges Office Visits / Consults: 72123 OV L3 Est Physical Exam Const alert, oriented x3 and no apparent distress General Appearance: cooperative, comfortable and well developed Orientation / Consciousness: awake, oriented to person, oriented to place and oriented to time HEENT normocephalic, head/scalp atraumatic and hearing grossly normal bilaterally Head and Scalp: normal to inspection, normocephalic and atraumatic Eyes General Eye: normal appearance of both eyes Neck full ROM and supple General: normal visual inspection Resp normal respiratory effort Effort and Inspection: able to speak in complete sentences Skin Wounds: wounds noted Neuro oriented x3, CN's II-XII intact bilaterally, moves all extremities and no focal motor deficits Psych mental status grossly normal Appearance: grossly normal Attitude: calm Activity / Motor Behavior: appropriate eye contact Debridement Note Debridement Note Post-Debridement Measurements and Additional Note: Post-Debridement Measurements/Treatment - Nurse 1 - General Ulcer Assessment Start: 09/25/22 09:57 Freq: Status: Active Protocol: BROOKE Activity Type Activity Date Activity User E-sign Co-sign Detail Recorded Client Recorded Date Recorded By Document 09/25/22 09:57 [facility] [id number] 09/25/22 10:06 [facility] Document 10/02/22 10:03 [facility] [id number] 10/02/22 10:16 [facility] Document 10/09/22 10:11 [facility] [id number] 10/09/22 10:24 [facility] 09/25/22 10/02/22 10/09/22 09:57 10:03 10:11 - Today's Visit Information Type of service Follow-up Visit Follow-up Visit Follow-up Visit (Physician/TOOL DESIGN ENGINEER (Physician/TOOL DESIGN ENGINEER (Physician/TOOL DESIGN ENGINEER ) ) ) Arrival Mode Wheelchair Wheelchair Wheelchair Transfer Assistance Other Other Other Transfer Assist (Other) stANDBY STAND BY 1 Patient Identification Verified (Name & Yes Yes Yes ) Patient Requires Transmission-Based No No No Precautions Height and Weight Body Mass Index (BMI) 37.1 37.1 37.1 BMI Classification Obese Obese Obese Vital Signs Temperature (97.8 F-99.1 F) 95.3 F L 93.5 F L 96.2 F L Temperature Source Temporal Temporal Temporal Pulse Rate (60-100) 89 74 74 Pulse Location Monitor Monitor Monitor Respiratory Rate (12-18) 16 16 18 Respiratory rate source Observation Observation Observation Oxygen Delivery Method Room Air Room Air Room Air Blood Pressure (90/60-120/80) 114/64 102/63 102/64 Blood Pressure Mean (mm Hg) 80 76 76 Source Monitor Monitor Monitor Position Sitting Sitting Sitting Blood Pressure Location Left Arm Right Arm Right Arm History Since Last Visit- (Skip if this is Patient's initial visit) Have you changed medications since your No No No last visit? Any new allergies or adverse reactions No No No Had a fall/change in ADL's that may No Yes No increase risk of falls Signs or symptoms of abuse and/or No No No neglect since last visit Have you been in the hospital since your No No No last visit? Has dressing in place as prescribed Yes No No Has compression in place as prescribed No No No Has offloadiing in place as prescribed N/A N/A N/A Experienced any changes in pain level or No No No management Left Footwear Diabetic Shoe Diabetic Shoe Diabetic Shoe Right Footwear Diabetic Shoe Diabetic Shoe Diabetic Shoe Pain Scale: 0-10 Numeric Is Patient Pain Free? Yes Yes Yes WC - Nurse 1 - General Ulcer Measurement Start: 09/25/22 09:57 Freq: Status: Active Protocol: Activity Type Activity Date Activity User E-sign Co-sign Detail Recorded Client Recorded Date Recorded By Document 09/25/22 09:57 [facility] [id number] 09/25/22 10:06 [facility] Document 10/02/22 10:03 [facility] [id number] 10/02/22 10:16 [facility] Document 10/09/22 10:11 [facility] [id number] 10/09/22 10:24 [facility] 09/25/22 10/02/22 10/09/22 09:57 10:03 10:11 Wound Center Nurse 1 #5- R LAT LE SKIN TEAR CLUSTER (PT SCRATCHES) -Combined with other wound No No No -Current Size (cm) - Length 19.7 6.5 0.1 -Current Size (cm) - Width 2.4 3 0.1 -Current Size (cm) - Depth 0.1 0.1 0.1 -Total Square Cm 47.28 19.5 0.01 -Date of Last Picture (Recall this 10/02/22 10/09/22 field) -Photo Taken No Yes Yes -Epithelialization Medium 34-66% Small 1-33% Large 67-100% -Tunneling No No No -Undermining/Tunneling No No No -Circular Undermining No No No -Exudate Amt Small Small None Present -Exudate Type Sanguineous Sanguineous -Wound Margin Flat & Intact Distinct, Distinct, Outline Outline Attached Attached -Granulation Amt Medium (34-66%) Medium (34-66%) None Present (0 %) -Granulation Quality Red Red -Slough/Fibrin Yes Yes Yes -Necrosis Amt Medium (34-66%) Medium (34-66%) Large (67-100%) -Necrotic Tissue Type Eschar Eschar Eschar -Texture (Dea-wound Skin Appearance) Assessed, Assessed, Assessed, Scarring Scarring Scarring -Moisture (Dea-wound Skin Appearance) Assessed Assessed,Dry/ Assessed,Dry/ Scaly Scaly -Color (Dea-wound Skin Appearance) Assessed Assessed Assessed -Temperature (Dea-wound Skin No Abnormality No Abnormality No Abnormality Appearance) (Pt Warm) (Pt Warm) (Pt Warm) -Tenderness on Palpation (Dea-wound No No No Skin Appearance) -Ulcer Cleansing Rinsed/ Soap and Water Rinsed/ Irrigated with Irrigated with Saline Saline -Foul Odor after Cleansing No No No -Anesthetic Used 5% Lidocaine 5% Lidocaine Gel Gel -Wound Comment(s) area scabbed. 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 mostly scabbed #4- abdominal cluster -Combined with other wound No No No -Current Size (cm) - Length 15 18.3 16 -Current Size (cm) - Width 20.1 24.5 25.5 -Current Size (cm) - Depth 0.1 0.1 0.1 -Total Square Cm 301.5 448.35 408.0 -Date of Last Picture (Recall this 10/02/22 10/09/22 field) -Photo Taken No Yes Yes -Epithelialization Small 1-33% Small 1-33% Medium 34-66% -Tunneling No No No -Undermining/Tunneling No No No -Circular Undermining No No No -Exudate Amt Medium Small Small -Exudate Type Serous Serosanguineous Serosanguineous -Wound Margin Distinct, Distinct, Distinct, Outline Outline Outline Attached Attached Attached -Granulation Amt Medium (34-66%) Medium (34-66%) Large (67-100%) -Granulation Quality Red Red Red -Slough/Fibrin Yes Yes Yes -Necrosis Amt Medium (34-66%) Medium (34-66%) Small (1-33%) -Necrotic Tissue Type Eschar Eschar Eschar -Texture (Dea-wound Skin Appearance) Assessed, Assessed, Assessed, Scarring Scarring Scarring -Moisture (Dea-wound Skin Appearance) Assessed Assessed Assessed -Color (Dea-wound Skin Appearance) Assessed Assessed Assessed -Temperature (Dea-wound Skin No Abnormality No Abnormality No Abnormality Appearance) (Pt Warm) (Pt Warm) (Pt Warm) -Tenderness on Palpation (Dea-wound No No No Skin Appearance) -Ulcer Cleansing Rinsed/ Soap and Water Rinsed/ Irrigated with Irrigated with Saline Saline -Foul Odor after Cleansing No No No -Anesthetic Used 5% Lidocaine 5% Lidocaine 5% Lidocaine Gel Gel Gel -Wound Comment(s) pt cont's to pick at areas on abd. Right Calf (cm) 36 35.7 Right Ankle (cm) 22.7 21.3 Left Calf (cm) 36.3 36.1 Left Ankle (cm) 21.8 22.2 WC - Nurse 2 - General Ulcer CM Notes Start: 09/25/22 09:57 Freq: Status: Active Protocol: Activity Type Activity Date Activity User E-sign Co-sign Detail Recorded Client Recorded Date Recorded By Document 09/25/22 11:04 MW [id number] 09/25/22 11:09 MW Edit Result 09/25/22 11:04 MW (1) [id number] 09/25/22 11:09 MW Document 10/02/22 10:30 MW [id number] 10/02/22 10:40 MW Edit Result 10/02/22 10:30 MW (2) [id number] 10/03/22 07:08 PL Document 10/09/22 10:51 MW [id number] 10/09/22 10:54 MW (1) #4- abdominal cluster - Debridement, SubQ, ea addt'l 20sq cm => 1 or part thereof (2) #4- abdominal cluster - Debridement, SubQ, ea addt'l 20sq cm => 1 or part thereof 09/25/22 10/02/22 10/09/22 11:04 10:30 10:51 Wound Center Nurse 2 #5- R LAT LE SKIN TEAR CLUSTER (PT SCRATCHES) -Time 11:05 10:31 10:52 -Correct Patient Yes Yes Yes -Correct Side, Site, Position Yes Yes Yes -Correct Procedure Yes Yes Yes -Procedure Performed No No No -Tunneling No No -Undermining/Tunneling No No -Circular Undermining No No -Wound/Ulcer Outcome Not Healed Not Healed -Ulcer Cleansing Rinsed/ Irrigated with Saline #4- abdominal cluster -Time 11:05 10:30 10:52 -Correct Patient Yes Yes Yes -Correct Side, Site, Position Yes Yes Yes -Correct Procedure Yes Yes Yes -Procedure Performed Yes Yes No -Type of Procedure Debridement Debridement -Clinical Debridement Subcutaneous Subcutaneous -Tissue Removed Subcutaneous Subcutaneous -Post Debridement (cm) - Length 8.0 8.0 -Post Debridement (cm) - Width 3.0 3.5 -Post Debridement (cm) - Depth 0.1 0.1 -Total Square (Post) (cm) 24.00 28.00 -Area of Debridement (cm) - Length 8.0 8.0 -Area of Debridement (cm) - Width 3.0 3.5 -Total Square (Area) (cm) 24.00 28.00 -Tunneling No No -Undermining/Tunneling No -Circular Undermining No No -Wound/Ulcer Outcome Not Healed Not Healed -Ulcer Cleansing Rinsed/ Rinsed/ Irrigated with Irrigated with Saline Saline -Foul Odor after Cleansing No No -Bioengineered Tissue No No -Bleeding Controlled with Pressure Pressure -Treatment Response Procedure Procedure Tolerated Well Tolerated Well -Offloading No No -Debridement - Subq, 1st 20sq cm Yes Yes -Debridement, SubQ, ea addt'l 20sq cm 1 1 or part thereof Pain Scale: 0-10 Numeric Is Patient Pain Free? Yes Yes Yes WC - Nurse 3 - General Ulcer D/C NN Start: 09/25/22 09:57 Freq: Status: Active Protocol: Activity Type Activity Date Activity User E-sign Co-sign Detail Recorded Client Recorded Date Recorded By Document 09/25/22 11:22 [facility] [id number] 09/25/22 11:24 BM Document 10/02/22 10:50 [facility] [id number] 10/02/22 10:51 BMF 09/25/22 10/02/22 11:22 10:50 Wound Care Center Nurse 3 #5- R LAT LE SKIN TEAR CLUSTER (PT SCRATCHES) -Ulcer Cleansing Rinsed/ Rinsed/ Irrigated with Irrigated with Saline Saline -Foul Odor after Cleansing No No -Primary Dressing Applied Fibracol Plus Fibracol Plus 4x4,NonAdherent 4x4,NonAdherent Contact Layer Contact Layer -Other Dressing PER MW RN -Primary Dressing Covered/Secured with Dry Gauze & Dry Gauze, Roll Gauze, Secured with Secured with Tape Tape -Fibracol Plus 4x4 1 1 #4- abdominal cluster -Ulcer Cleansing Rinsed/ Rinsed/ Irrigated with Irrigated with Saline Saline -Foul Odor after Cleansing No -Primary Dressing Applied Fibracol Plus Fibracol Plus 4x4,NonAdherent 4x4,NonAdherent Contact Layer Contact Layer -Other Dressing ABD -Primary Dressing Covered/Secured with Secured with Secured with Tape Tape -Other Covering ABD -Fibracol Plus 4x4 0 0 BLE -Tubular Bandage Single Layer -Size of Tubigrip Used Size D -Size D ($) 2 -Other PT STATES HE RARELY WEARS AT [facility] Treatment Response Procedure Tolerated Well Pain Scale: 0-10 Numeric Is Patient Pain Free? Yes Yes WC - Visit Discharge Discharge Condition Stable Stable Ambulatory Status Ambulatory, Wheelchair Walker Transportation [facility] Facility Type [facility] Facility Assessment/Plan Assessment/Plan (1) Superficial ulcer of skin: CODE(S): L98.491 - Non-pressure chronic ulcer of skin of other sites limited to breakdown of skin (2) Venous insufficiency of both lower extremities: CODE(S): I87.2 - Venous insufficiency (chronic) (peripheral) (3) Chronic dermatitis: CODE(S): L30.9 - Dermatitis, unspecified (4) Venous insufficiency: CODE(S): I87.2 - Venous insufficiency (chronic) (peripheral) (5) Urticaria: CODE(S): L50.9 - Urticaria, unspecified (6) Skin ulcer of abdominal wall with fat layer exposed: CODE(S): L98.492 - Non-pressure chronic ulcer of skin of other sites with fat layer exposed (7) Ulcer of right lower extremity with fat layer exposed: CODE(S): L97.912 - Non-pressure chronic ulcer of unspecified part of right lower leg with fat layer exposed PLAN: Plan No debridement completed today. Essentially what he now has are superficial wounds from picking. He was advised that these wounds could be managed at his facility. Recommend Adaptic and gauze to all open areas until fully closed. However his picking is long-term issue that I do not know how to address. He was advised that he would have to keep his lower extremities and abdominal area which are his easy to reach areas covered at all times. He quite constantly picks in his sleep as well. His questions were answered and he was advised to call with any further questions or concerns. Discharge from wound clinic. This note was generated with [employer] dictation software. It may contain incorrect words, spelling, and punctuation that were not noted in checking the note before signing.
== END 2022-10-19 23:59 | disposition home or self-care (01) ==
LOC: WC 10:15
PROVIDERS: PCP Family Medicine; Visit Provider Internal Medicine
DX: L98.491 Non-pressure chronic ulcer of skin of other sites limited to breakdown of skin (principal); L98.492 Non-pressure chronic ulcer of skin of other sites with fat layer exposed; L97.912 Non-pressure chronic ulcer of unspecified part of right lower leg with fat layer exposed; I87.2 Venous insufficiency (chronic) (peripheral); L30.9 Dermatitis, unspecified; L50.9 Urticaria, unspecified; Z79.01 Long term (current) use of anticoagulants; Z79.899 Other long term (current) drug therapy
CPT/HCPCS: 11042; 11045; 99213; G0463

== ENCOUNTER → 2022-10-09 | Outpatient (REF) | payer MEDICARE, MEDICAID, SELFPAY ==
[2022-10-09 07:20] LABS: INR Fingerstick 3.8; Prothrombin Time Fingerstick 39.8 SEC (11.7-14.9)
== END ==
LOC: OLS.SW 05:00
PROVIDERS: PCP Family Medicine; Visit Provider Family Medicine
DX: Z79.01 Long term (current) use of anticoagulants (principal); Z79.899 Other long term (current) drug therapy; L98.491 Non-pressure chronic ulcer of skin of other sites limited to breakdown of skin; L98.492 Non-pressure chronic ulcer of skin of other sites with fat layer exposed; L97.912 Non-pressure chronic ulcer of unspecified part of right lower leg with fat layer exposed; I87.2 Venous insufficiency (chronic) (peripheral); L30.9 Dermatitis, unspecified; L50.9 Urticaria, unspecified
CPT/HCPCS: 36416; 85610; 99213; G0463

== ENCOUNTER → 2022-10-16 | Outpatient (REF) | payer MEDICARE, MEDICAID, SELFPAY ==
[2022-10-16 08:20] LABS: Hematocrit 35.9 % (40-54); Hemoglobin 11.8 g/dL (13.0-16.5); Mean Corp Hgb Conc 32.9 g/dL (32-36); Mean Corpuscular Hgb 32.8 pg (27.0-32.0); Mean Corpuscular Volume 99.7 fL (80-94); Mean Platelet Vol. 10.3 fl (6.2-12.0); Platelet Count 266 K/mm3 (150-450); RBC Distribution Width CV 14.6 % (11.6-14.6); RBC Distribution Width SD 53.4 fl (35.1-43.9); White Blood Count 15.4 K/mm3 (4.4-11.0)
[2022-10-16 08:35] LABS: Anion Gap 8 (5-15); BUN 68 mg/dL (7-18); BUN/Creat Ratio 14.7 RATIO (10-20); Calcium,Total 9.3 mg/dL (8.5-10.1); Chloride 91 mmol/L (98-107); Creatinine, Serum 4.63 mg/dL (0.70-1.30); EST Glomerular Filtration Rate 13 mL/min (>60); Est Glom Filt Rate - Afr Amer 16 mL/min (>60); Glucose 221 mg/dL (74-106); Phosphorus 4.9 mg/dL (2.5-4.9); Potassium 4.2 mmol/L (3.5-5.1); Sodium Level 127 mmol/L (136-145)
== END ==
LOC: OLS.SW 05:00
PROVIDERS: PCP Family Medicine; Visit Provider Family Medicine
DX: E11.22 Type 2 diabetes mellitus with diabetic chronic kidney disease (principal); N18.5 Chronic kidney disease, stage 5
CPT/HCPCS: 36415; 80048; 84100; 85027

== ENCOUNTER → 2022-10-23 | Outpatient (REF) | payer MEDICARE, MEDICAID, SELFPAY ==
[2022-10-23 08:06] LABS: INR Fingerstick 1.7; Prothrombin Time Fingerstick 19.4 SEC (11.7-14.9)
== END ==
LOC: OLS.SW 05:00
PROVIDERS: PCP Family Medicine; Visit Provider Family Medicine
DX: Z79.01 Long term (current) use of anticoagulants (principal)
CPT/HCPCS: 36416; 85610

== ENCOUNTER 2022-11-03 04:57 | Emergency (ER) | payer MEDICARE, MEDICAID, SELFPAY ==
[2022-11-03 04:59] VITALS: BP 132/69; PULSE 60; RESP 16; TEMP 36.3; O2SAT 96; BMI 21.7
--- NOTE | 2022-11-03 05:20 | CT_ITS ---
STUDY: CT BRAIN WITHOUT CONTRAST REASON FOR EXAM: Male, 76 years old patient with fall and confusion. RADIATION DOSAGE (If Supplied By Facility): CTDIvol = ( 44.99 ) mGy, DLP = ( 812.98 ) mGycm TECHNIQUE: Transaxial CT imaging of the brain was performed without administration of intravenous contrast material. Multiplanar reformations are submitted for interpretation. Individualized dose optimization techniques were used for this CT. COMPARISON: CT of the head dated February 02, 2019. FINDINGS: Normal soft tissue structures. Normal calvarium. There is mild cerebral atrophy with widening of the extra-axial spaces and ventricular dilatation. There are areas of decreased attenuation within the white matter tracts of the supratentorial brain, consistent with microvascular disease changes. Normal basal ganglia and thalami. Normal brainstem. There is mild cerebellar atrophy. There is no intracranial hemorrhage. There is mild atherosclerotic calcification of the intracranial arteries. There is lumpy bumpy mucosal thickening in the right maxillary sinus. There is a small mucous retention cyst and mucosal thickening in the left sphenoid sinus. There is mild mucosal thickening in the left maxillary sinus and ethmoid sinuses.. CT/Brain/Head without Contrast IMPRESSION: 1. Chronic involutional changes of the brain. 2. No CT evidence of acute intracranial hemorrhage. Electronically Signed: Erlinda Perez MD at 7:01 EDT ,
--- NOTE | 2022-11-03 05:20 | EKG12_ITS ---
Test Reason : FALL Blood Pressure : / mmHG Vent. Rate : 060 BPM Atrial Rate : 060 BPM P-R Int : 000 ms QRS Dur : 158 ms QT Int : 458 ms P-R-T Axes : 000 018 006 degrees QTc Int : 458 ms Atrial flutter Right bundle branch block Abnormal ECG Confirmed by ASHA AMBRIZ, COURTNEY ([id number]), editorial assistant BEATRIZ MOREL ([id number]) on 11/04/2022 8:20:30 AM Referred By: Confirmed By:COURTNEY BARRY MD
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
[2022-11-03 05:38] LABS: Absolute Lymphocyte Count 1.42 X10^3/uL (0.83-4.51); Absolute Neutrophil Count 10.7 X10^3/uL (2.0-7.7); Basophil# 0.03 X10^3/uL; Basophil% 0.2 % (0-1); Eosinophil# 0.11 X10^3/uL; Eosinophils% 0.8 % (0-5); Hematocrit 33.3 % (40-54); Hemoglobin 10.9 g/dL (13.0-16.5); Lymphocyte # 1.42 X10^3/ul (0.83-4.51); Lymphocyte % 10.6 % (19-41); Mean Corp Hgb Conc 32.7 g/dL (32-36); Mean Corpuscular Hgb 33.5 pg (27.0-32.0); Mean Corpuscular Volume 102.5 fL (80-94); Mean Platelet Vol. 10.2 fl (6.2-12.0); Monocyte# 1.03 X10^3/uL; Monocyte% 7.7 % (0-10); NRBC Flagged by Analyzer 0 % (0-5); Neutrophil # 10.65 X10^3/uL (2.7-7.7); Neutrophil % 79.7 % (47-70); Platelet Count 234 K/mm3 (150-450); RBC Distribution Width CV 14.1 % (11.6-14.6); RBC Distribution Width SD 52.8 fl (35.1-43.9); Red Blood Count 3.25 M/mm3 (4.6-6.2); White Blood Count 13.4 K/mm3 (4.4-11.0)
[2022-11-03] MEDS: Ipratropium/Albuterol Sulfate 3 ML AMPUL.NEB INHALATION (05:39)
[2022-11-03] MEDS: Albuterol 2.5 MG/3 ML VIAL.NEB. INHALATION ×3 (05:39→06:06)
[2022-11-03 05:40] VITALS: PULSE 87; RESP 23
[2022-11-03 06:06] LABS: Allen Test Positive; Base Excess 3 mmol/L (-2 to +2); Blood Gas Specimen Type ART; O2 Delivery Device Cannula; PO2 96 mmHG (75-100); SITE R Radial; SO2 96 % (95-99); Total Carbon Dioxide 31 mmol/L; pCO2 59.4 mmHg (35-45)
[2022-11-03 06:24] LABS: Anion Gap 11 (5-15); BUN 124 mg/dL (7-18); BUN/Creat Ratio 13.7 RATIO (10-20); Calcium,Total 9.1 mg/dL (8.5-10.1); Chloride 93 mmol/L (98-107); Creatinine, Serum 9.05 mg/dL (0.70-1.30); EST Glomerular Filtration Rate 6 mL/min (>60); Est Glom Filt Rate - Afr Amer 7 mL/min (>60); Estimated Creatinine Clearance 5.98 ml/min; Glucose 253 mg/dL (74-106); Potassium 5.7 mmol/L (3.5-5.1); Sodium Level 132 mmol/L (136-145); Troponin-I HS 22 pg/mL (3.0-78.0)
--- NOTE | 2022-11-03 06:35 | RAD_ITS ---
STUDY: X-RAY CHEST REASON FOR EXAM: Male, 76 years old patient with cough, shortness of breath and COPD TECHNIQUE: AP and lateral views of the chest. COMPARISON: Chest radiograph dated March 11, 2022. FINDINGS: The lungs are expanded. There is a large right apical pulmonary mass measuring 6.6 x 4.4 x 5.3 cm. There is no demonstrated pleural abnormality. There is mild cardiac enlargement. Normal mediastinum and shaji. There is prominence of the pulmonary hilar arteries with peripheral pulmonary vascular congestion. There is atherosclerotic calcification of the aortic arch with tortuosity. There is an increased kyphosis of the thoracic spine. Normal visualized ribs, clavicles, and shoulders. There is no demonstrated abnormality of the visualized soft tissue structures of the upper abdomen. RAD/Chest PA and Lateral IMPRESSION: 1. Large right apical pulmonary mass. This likely represents a bronchogenic carcinoma. 2. Cardiomegaly and pulmonary vascular congestion. Electronically Signed: Erlinda Perez MD at 7:12 EDT ,
--- NOTE | 2022-11-03 07:38 | ED.RN ---
DR. IGNACIO PAGED PER DR. RIVERA REQUEST.
--- NOTE | 2022-11-03 07:49 | CT_ITS ---
STUDY: CT CHEST WITHOUT CONTRAST REASON FOR EXAM: Male, 76 years old. Lung mass. COPD. Renal insufficiency. Shortness of breath and wheezing. RADIATION DOSAGE (If Supplied By Facility): CTDIvol = ( 20.08 ) mGy, DLP = ( 722.54 ) mGycm TECHNIQUE: Transaxial imaging was performed without the administration of intravenous contrast material. Multiplanar coronal and sagittal images were reformatted. Individualized dose optimization techniques were used for this CT. COMPARISON: Comparison is made with prior chest radiograph done earlier today. FINDINGS: CHEST There is a 4.7 cm x 3.7 cm lobulated mass in the apical medial aspect of the right upper lobe. This abuts the upper right side of the mediastinum. Increased markings at the left lung base with areas of confluence. This most likely represents an inflammatory process. There is no demonstrated pleural abnormality. Normal heart and pericardium. Calcified mediastinal lymph nodes. Calcified bilateral hilar lymph nodes. Normal unenhanced pulmonary arteries. There is atherosclerotic calcification of the aortic arch with tortuosity and elongation of the aortic arch and descending thoracic aorta. There are multi-level degenerative changes of the thoracic spine. Increased vessels Multiple calcified splenic granulomas. The patient has a history of prior liver transplantation. CT/Chest without Contrast IMPRESSION: 4.7 cm x 3.7 cm lobulated mass in the medial apical aspect of the right upper lobe as described. Patchy infiltrate in the left lower lobe. Electronically Signed: Asher Jefferson MD at 9:11 EDT ,
[2022-11-03] MEDS: MethylPREDNISolone 125 MG/2 ML Vial IV (08:33)
[2022-11-03] MEDS: Sodium Polystyrene Sulfonate 15 GM/60 ML UDC PO (08:33)
[2022-11-03 08:34] VITALS: BP 100/62; PULSE 61
[2022-11-03] MEDS: levoFLOXacin 500 MG Tablet PO (09:35)
--- NOTE | 2022-11-03 09:42 | ED.RN ---
PHYSICIANS CALL AT [facility] SHOULD ARRIVE IN 10 MINUTES.
--- NOTE | 2022-11-03 09:53 | ED.RN ---
REPORT CALLED TO [facility] REGARDING PATIENT DISPOSITION
== END 2022-11-03 10:33 | disposition skilled nursing facility (03) ==
PROVIDERS: Emergency Provider Emergency Medicine; PCP Family Medicine; Visit Provider Emergency Medicine
DX: J44.1 Chronic obstructive pulmonary disease with (acute) exacerbation (principal); Z94.4 Liver transplant status; Z99.2 Dependence on renal dialysis; I13.0 Hypertensive heart and chronic kidney disease with heart failure and stage 1 through stage 4 chronic kidney disease, or unspecified chronic kidney disease; I50.9 Heart failure, unspecified; E11.22 Type 2 diabetes mellitus with diabetic chronic kidney disease; N18.4 Chronic kidney disease, stage 4 (severe); I48.92 Unspecified atrial flutter; Z79.4 Long term (current) use of insulin; I45.10 Unspecified right bundle-branch block; E87.5 Hyperkalemia; F10.10 Alcohol abuse, uncomplicated; Y90.9 Presence of alcohol in blood, level not specified; R91.8 Other nonspecific abnormal finding of lung field; R29.6 Repeated falls; Z66 Do not resuscitate; Z79.01 Long term (current) use of anticoagulants; Z79.82 Long term (current) use of aspirin; Z79.899 Other long term (current) drug therapy; Z87.891 Personal history of nicotine dependence
CPT/HCPCS: 36600; 70450; 71046; 71250; 80048; 82803; 84484; 85025; 87428; 93005; 94640; 96374; 99285; A4216

== ENCOUNTER → 2022-11-04 | Outpatient (REF) | payer MEDICARE, MEDICAID, SELFPAY ==
[2022-11-04 07:37] LABS: Hematocrit 35.8 % (40-54); Hemoglobin 11.6 g/dL (13.0-16.5); Mean Corp Hgb Conc 32.4 g/dL (32-36); Mean Corpuscular Hgb 33.9 pg (27.0-32.0); Mean Corpuscular Volume 104.7 fL (80-94); Mean Platelet Vol. 11.1 fl (6.2-12.0); Platelet Count 271 K/mm3 (150-450); RBC Distribution Width CV 14.4 % (11.6-14.6); RBC Distribution Width SD 54.9 fl (35.1-43.9); Red Blood Count 3.42 M/mm3 (4.6-6.2); White Blood Count 13.2 K/mm3 (4.4-11.0)
[2022-11-04 08:15] LABS: Anion Gap 12 (5-15); BUN 99 mg/dL (7-18); BUN/Creat Ratio 12.9 RATIO (10-20); Calcium,Total 9.1 mg/dL (8.5-10.1); Chloride 84 mmol/L (98-107); Creatinine, Serum 7.67 mg/dL (0.70-1.30); EST Glomerular Filtration Rate 7 mL/min (>60); Est Glom Filt Rate - Afr Amer 9 mL/min (>60); Glucose 883 mg/dL (74-106); Potassium 5.8 mmol/L (3.5-5.1); Sodium Level 122 mmol/L (136-145)
[2022-11-04 08:52] LABS: International Normalized Ratio 1.7
== END ==
LOC: OLS.SW 05:00
PROVIDERS: PCP Family Medicine; Visit Provider Family Medicine
DX: E11.22 Type 2 diabetes mellitus with diabetic chronic kidney disease (principal); N18.9 Chronic kidney disease, unspecified; Z79.01 Long term (current) use of anticoagulants
CPT/HCPCS: 36415; 80048; 85027; 85610

== ENCOUNTER → 2022-11-07 | Outpatient (CLI) | payer MEDICARE, MEDICAID, SELFPAY ==
[2022-11-07 10:36] LABS: Absolute Lymphocyte Count 0.94 X10^3/uL (0.83-4.51); Absolute Neutrophil Count 15.1 X10^3/uL (2.0-7.7); Basophil# 0.03 X10^3/uL; Basophil% 0.2 % (0-1); Eosinophil# 0.05 X10^3/uL; Eosinophils% 0.3 % (0-5); Hematocrit 36.5 % (40-54); Hemoglobin 11.9 g/dL (13.0-16.5); Lymphocyte # 0.94 X10^3/ul (0.83-4.51); Lymphocyte % 5.4 % (19-41); Mean Corp Hgb Conc 32.6 g/dL (32-36); Mean Corpuscular Hgb 33.1 pg (27.0-32.0); Mean Corpuscular Volume 101.7 fL (80-94); Mean Platelet Vol. 10.1 fl (6.2-12.0); Monocyte# 1.12 X10^3/uL; Monocyte% 6.4 % (0-10); NRBC Flagged by Analyzer 0 % (0-5); Neutrophil # 15.13 X10^3/uL (2.7-7.7); Neutrophil % 86.7 % (47-70); Platelet Count 261 K/mm3 (150-450); RBC Distribution Width CV 14.1 % (11.6-14.6); RBC Distribution Width SD 52.9 fl (35.1-43.9); Red Blood Count 3.59 M/mm3 (4.6-6.2); White Blood Count 17.4 K/mm3 (4.4-11.0)
[2022-11-07 10:39] LABS: Erythrocyte Sedimentation Rate 28 mm/hr (0-20)
[2022-11-07 10:50] LABS: International Normalized Ratio 1.9; Prothrombin Time (Protime)PT. 21.8 SECONDS (11.7-14.9)
[2022-11-07 11:13] LABS: Ammonia < 10.0 umol/L (11-32)
[2022-11-07 11:42] LABS: ALB/GLOB Ratio 0.8 RATIO (0.9-2.4); AST(SGOT) 11 U/L (15-37); Alanine Aminotransfer ALT/SGPT 28 U/L (16-61); Alkaline Phosphatase 92 U/L (45-117); Anion Gap 9 (5-15); BUN 122 mg/dL (7-18); BUN/Creat Ratio 14.6 RATIO (10-20); Calcium,Total 9.4 mg/dL (8.5-10.1); Chloride 93 mmol/L (98-107); Creatinine, Serum 8.33 mg/dL (0.70-1.30); EST Glomerular Filtration Rate 7 mL/min (>60); Est Glom Filt Rate - Afr Amer 8 mL/min (>60); Glucose 143 mg/dL (74-106); LDH 194 U/L (87-241); Potassium 5.5 mmol/L (3.5-5.1); Sodium Level 130 mmol/L (136-145)
== END | disposition home or self-care (01) ==
LOC: LAB 09:59
PROVIDERS: PCP Family Medicine; Referring Provider Internal Medicine Gastroenterology; Visit Provider Internal Medicine Gastroenterology
DX: K59.00 Constipation, unspecified (principal); Z94.4 Liver transplant status; K22.0 Achalasia of cardia
CPT/HCPCS: 36415; 80053; 82140; 83615; 85025; 85610; 85652; 86140

== ENCOUNTER → 2022-11-08 | Outpatient (REF) | payer MEDICARE, MEDICAID, SELFPAY ==
[2022-11-08 11:20] LABS: International Normalized Ratio 1.9; Prothrombin Time (Protime)PT. 21.9 SECONDS (11.7-14.9)
== END ==
LOC: OLS.SW 09:55
PROVIDERS: PCP Family Medicine; Visit Provider Family Medicine
DX: I48.91 Unspecified atrial fibrillation (principal)
CPT/HCPCS: 36415; 85610

== ENCOUNTER → 2022-11-09 | Outpatient (REF) | payer MEDICARE, MEDICAID, SELFPAY ==
[2022-11-09 08:25] LABS: ALB/GLOB Ratio 0.7 RATIO (0.9-2.4); AST(SGOT) 12 U/L (15-37); Alanine Aminotransfer ALT/SGPT 22 U/L (16-61); Albumin, Serum 2.9 g/dL (3.2-5.0); Alkaline Phosphatase 94 U/L (45-117); Anion Gap 12 (5-15); BUN 108 mg/dL (7-18); BUN/Creat Ratio 12.7 RATIO (10-20); Calcium,Total 9.2 mg/dL (8.5-10.1); Chloride 91 mmol/L (98-107); Creatinine, Serum 8.48 mg/dL (0.70-1.30); EST Glomerular Filtration Rate 7 mL/min (>60); Est Glom Filt Rate - Afr Amer 8 mL/min (>60); Globulin 4.2 g/dL (2.2-4.2); Glucose 157 mg/dL (74-106); Potassium 5.4 mmol/L (3.5-5.1); Protein, Total 7.1 g/dL (6.4-8.2); Sodium Level 130 mmol/L (136-145)
== END ==
LOC: OLS.SW 07:00
PROVIDERS: PCP Family Medicine; Visit Provider Family Medicine
DX: E11.22 Type 2 diabetes mellitus with diabetic chronic kidney disease (principal); N18.5 Chronic kidney disease, stage 5
CPT/HCPCS: 36415; 80053

== ENCOUNTER 2022-11-10 08:17 | Inpatient (IN) | payer MEDICARE, MEDICAID, SELFPAY ==
[2022-11-10] VITALS (18 sets, daily range): BP systolic 100–136; BP diastolic 62–89; PULSE 57–112; RESP 8–24; TEMP 35.9–36.8; O2SAT 93–100; BMI 33.8; BMI 33.0
--- NOTE | 2022-11-10 08:39 | EKG12_ITS ---
Test Reason : SOB Blood Pressure : / mmHG Vent. Rate : 063 BPM Atrial Rate : 234 BPM P-R Int : 000 ms QRS Dur : 158 ms QT Int : 440 ms P-R-T Axes : 000 015 006 degrees QTc Int : 450 ms Atrial flutter with variable A-V block Right bundle branch block Abnormal ECG Confirmed by ASHA AMBRIZ, COURTNEY ([id number]), photo editor BEATRIZ MOREL ([id number]) on 11/12/2022 2:10:17 PM Referred By: JEROME Confirmed By:COURTNEY BARRY MD
--- NOTE | 2022-11-10 08:45 | EX.ED.DYSGE1 ---
HPI History of Present Illness Chief Complaint: Shortness of Breath Informant: patient Onset/Context/Timing Onset: Days Narrative Narrative: Patient sent in from local longterm secondary to increasing weakness and falls. Patient was in the ER on the and found to have a medial right upper lobe lung mass. There was also a patchy left lower lobe infiltrate and he was started on Levaquin. [facility] reports they did not give any Levaquin over the weekend. They feel that he has had increasing weakness and felt least 4 times. It is noted that on his ER visit last week it is documented that he had fallen multiple times as well. Patient reportedly is dialysis dependent on Thursday, Thursday, Thursday, and Thursday. Patient denies chest pain to me. He states he feels weak and as if he has lost his memory. [facility] Medical History Abdominal pain [id number] kidney injury Alcohol abuse Alcohol abuse following liver transplant Alcohol withdrawal Anemia Arthritis Arthritis of carpometacarpal (CMC) joint of right thumb Chronic dermatitis Cirrhosis COPD (chronic obstructive pulmonary disease) COPD exacerbation CPAP (continuous positive airway pressure) dependence Depression Diabetes mellitus Dietary restriction Dyspnea Encephalopathy Former smoker Fracture of left olecranon process Gastric reflux Gout History of anxiety History of CHF (congestive heart failure) History of echocardiogram History of IBS History of renal disease History of skin cancer History of ulceration HTN (hypertension) Hypokalemia Hypoxia Infected ulcer of skin Macular degeneration Nausea & vomiting Non-healing non-surgical wound [facility] resident On home oxygen therapy OLVIN (obstructive sleep apnea) Shortness of breath on exertion Superficial ulcer of skin Thyroid disease Urticaria Venous insufficiency of both lower extremities Walker as ambulation aid Wears glasses Home Medications levothyroxine 75 mcg tablet 75 mcg PO DAILY thyroid 11/19/13 [History Last Taken 06/10/22] tacrolimus 1 mg capsule, immediate-release 0.5 mg PO BID transplant med 06/09/16 [History Last Taken 06/10/22] allopurinol 100 mg tablet 100 mg PO DAILY Gout 07/07/19 [History Last Taken 06/10/22] bupropion HCl 150 mg tablet,12 hr sustained-release 150 mg PO BID major depressive disorder 07/07/19 [History Last Taken 06/10/22] multivit with minerals-folic acid-lycopene 0.4 mg-600 mcg tablet 1 tablet PO DAILY supplement 07/07/19 [History Last Taken 06/10/22] aspirin 81 mg tablet,delayed release 81 mg PO DAILY@0800 heart health 08/30/20 [History Last Taken 06/10/22] ergocalciferol (vitamin D2) 1,250 mcg (50,000 unit) capsule 50,000 unit PO MO supplement 08/30/20 [History Last Taken 05/22/22] ketoconazole 2 % shampoo 1 applic TP MOWEFR dry scalp 08/30/20 [History Last Taken 06/09/22] magnesium oxide 400 mg PO TID supplement 08/30/20 [History Last Taken 06/10/22] sertraline 100 mg tablet 100 mg PO QHS depression 08/30/20 [History Last Taken 06/09/22] fluticasone propionate 50 mcg/actuation nasal spray,suspension (Flonase Allergy Relief) 2 spray intranasal DAILY allergies 03/11/21 [History Last Taken 06/10/22] ipratropium 0.5 mg-albuterol 3 mg (2.5 mg base)/3 mL nebulization soln 3 ml inhalation Q6H PRN Wheezing 03/11/21 [History Last Taken 06/10/22] sennosides 8.6 mg tablet (senna) 8.6 mg PO PRN PRN Constipation 03/11/21 [History Last Taken Unknown] zolpidem 5 mg tablet 5 mg PO QHS PRN Insomnia 03/11/21 [History Last Taken 06/09/22] acetaminophen 500 mg tablet 500 mg PO Q6H PRN Pain 02/06/22 [History Last Taken Unknown] bisacodyl 10 mg rectal suppository 10 mg NV Q18H PRN Constipation 02/06/22 [History Last Taken Unknown] calcium carbonate 200 mg calcium (500 mg) chewable tablet (Tums) 200 mg PO Q18H PRN Indigestion 02/06/22 [History Last Taken Unknown] docusate sodium 100 mg capsule (Colace) 100 mg PO DAILY PRN Constipation 02/06/22 [History Last Taken Unknown] furosemide 20 mg tablet (Lasix) 20 mg PO DAILY 02/06/22 [History Last Taken 06/10/22] insulin glargine 100 unit/mL (3 mL) subcutaneous pen (Lantus Solostar U-100 Insulin) 50 unit subcut BREAKFAST DIABETES 02/06/22 [History Last Taken 11/09/22] loperamide 2 mg capsule (Imodium A-D) 2 mg PO Q6H PRN Diarrhea 02/06/22 [History Last Taken 06/10/22] menthol 4 % topical gel (Biofreeze (menthol)) 1 applic topical BID PRN Pain 02/06/22 [History Last Taken Unknown] miconazole nitrate 2 % topical cream 1 applic topical QHS 02/06/22 [History Last Taken 06/10/22] gabapentin 100 mg capsule 100 mg PO TID 04/04/22 [History Last Taken 06/10/22] semaglutide 0.25 mg or 0.5 mg (2 mg/1.5 mL) subcutaneous pen injector (Ozempic) 0.75 mg subcut MO 04/04/22 [History Last Taken 06/09/22] prednisone 20 mg tablet 20 mg PO DAILY 04/24/22 [History Last Taken 06/10/22] calcitriol 0.25 mcg capsule 0.25 mcg PO DAILY KIDNEY DISEASE 06/10/22 [History Last Taken 06/10/22] cetirizine 10 mg tablet (Zyrtec) 10 mg PO DAILY PRN ALLERGIES 06/10/22 [History Last Taken 06/10/22] sulfamethoxazole 800 mg-trimethoprim 160 mg tablet 1 tab PO MOWEFR INFECTION PREVENTION 06/10/22 [History Last Taken 06/09/22] tamsulosin 0.4 mg capsule 0.4 mg PO BID PROSTAIT 06/10/22 [History Last Taken 06/10/22] diltiazem HCl 120 mg capsule,extended release 24 hr 120 mg PO DAILY #0 caps 06/15/22 [Rx Last Taken Unknown] metoprolol tartrate 50 mg tablet 50 mg PO BID #0 tabs 06/15/22 [Rx Last Taken Unknown] warfarin 5 mg tablet (Jantoven) 5 mg PO DAILY@1700 #0 tabs 06/15/22 [Rx Last Taken Unknown] oxycodone-acetaminophen 5 mg-325 mg tablet 1 tab PO Q6H PRN PRN pain 5 days #20 TABLETS 07/14/22 [Rx Last Taken Unknown] famotidine 40 mg tablet 40 mg PO .COMPLEX REFLUX 11/10/22 [History Last Taken Unknown] insulin lispro 100 unit/mL subcutaneous pen (Humalog KwikPen (U-100) Insulin) See Rx Instructions .Route .COMPLEX DIABETES 11/10/22 [History Last Taken 11/09/22] levofloxacin 500 mg tablet 250 mg PO DAILY ANTIBIOTIC 11/10/22 [History Last Taken 11/08/22] polyethylene glycol 3350 17 gram/dose oral powder (Miralax) 4 g PO DAILY CONSTIPATION 11/10/22 [History Last Taken 11/09/22] Allergy/AdvReac Type Severity Reaction Status Date / Time cortisone [Cortisone] Allergy Angioedema Verified 11/10/22 08:18 Penicillins Allergy Unknown Verified 11/10/22 08:18 Surgical History History of esophagogastroduodenoscopy (EGD) History of excision of pilonidal cyst History of knee surgery History of parathyroid surgery History of tonsillectomy Hx of thumb surgery Social History household members: none housing: longterm Smoking Status: Former smoker alcohol intake: former substance use type: does not use ROS ROS ED Constitutional Constitutional ED: Denies chills or fever(s) Eyes Eyes: Denies change in vision or discharge from eye(s) ENT ENT ED: Denies discharge from eye(s) or sore throat Cardiovascular Cardiovascular: Denies chest pain Respiratory/Chest Respiratory/Chest: Reports cough and dyspnea Gastrointestinal Gastrointestinal: Reports nausea and vomiting; Denies abdominal pain Genitourinary Genitourinary ED: Denies difficulty urinating or dysuria Musculoskeletal Musculoskeletal: Denies back pain or extremity pain Integumentary Reports Abrasions; Denies rash Neurologic Neurologic: Reports headache(s) and weakness Psychiatric Psychiatric: Denies anxiety or depression Allergic/Immunologic Allergic/Immunologic ED: Denies lip swelling or urticaria EXAM Physical Exam Const Vital Signs: 11/10/22 08:19 11/10/22 08:29 11/10/22 08:52 Temperature 98.3 F Temperature Source Oral Pulse Rate 95 75 Respiratory Rate 20 H 24 H Respiratory Effort Short of Breath Labored Accessory Muscle Use Respiratory Pattern Tachypnea Blood Pressure 100/77 Blood Pressure Mean 84 Pulse Ox 96 Oxygen Delivery Method Nasal Cannula Nasal Cannula Oxygen Flow Rate (L/min) 2 2 Fraction of Inspired Oxygen (FIO2) 11/10/22 09:09 11/10/22 09:30 11/10/22 09:37 Temperature Temperature Source Pulse Rate 64 60 60 Respiratory Rate 16 14 14 Respiratory Effort Respiratory Pattern Blood Pressure 105/76 Blood Pressure Mean 85 Pulse Ox 95 93 97 Oxygen Delivery Method Bi-pap Oxygen Flow Rate (L/min) Fraction of Inspired Oxygen (FIO2) 30 45 11/10/22 10:08 11/10/22 10:22 11/10/22 11:14 Temperature Temperature Source Pulse Rate 57 L 58 L 74 Respiratory Rate 10 L 19 H 16 Respiratory Effort Respiratory Pattern Blood Pressure 126/78 H 130/78 H Blood Pressure Mean 94 95 Pulse Ox 95 94 95 Oxygen Delivery Method Bi-pap Oxygen Flow Rate (L/min) Fraction of Inspired Oxygen (FIO2) 40 11/10/22 12:06 11/10/22 12:06 Temperature 96.7 F L Temperature Source Temporal Pulse Rate 65 78 Respiratory Rate 11 L 18 Respiratory Effort Respiratory Pattern Blood Pressure 136/72 H 136/72 H Blood Pressure Mean 93 93 Pulse Ox 97 99 Oxygen Delivery Method Bi-pap Bi-pap Oxygen Flow Rate (L/min) Fraction of Inspired Oxygen (FIO2) Positive well nourished and well developed General Appearance ED: well developed HEENT Reports moist mucous membranes Chest Wall inspection of chest normal and palpation of chest normal Resp Resp Narrative: Coarse breath sounds bilaterally. Cardio regular rate and regular rhythm GI GI Narrative: Abdomen soft but distended. No focal tenderness. Extremity Extremity Narrative: Linear abrasions with dried blood noted on the lower extremities. Neuro Neuro Narrative: Patient alert and moves all 4 extremities. Answers questions appropriately. MDM MDM MDM Narrative Medical decision making narrative: Patient placed on awake overnight monitor. EKG obtained to evaluate for cardiac arrhythmia/ischemia. Chest x-ray obtained to evaluate for acute lung pathology, cardiac size, or mediastinal abnormality. Labwork obtained to evaluate for leukocytosis, anemia, and electrolyte derangement. DuoNeb treatment provided. ABG obtained to evaluate for CO2 retention. Lab Data Attestation: I reviewed the patient's lab results. Labs: Laboratory Results - last 24 hr 11/10/22 11/10/22 11/10/22 08:25 08:25 08:25 WBC 13.3 H RBC 3.31 L Hgb 11.0 L Hct 33.5 L MCV 101.2 H MCH 33.2 H MCHC 32.8 RDW Std Deviation 51.9 H RDW Coeff of Kecia 14.0 Plt Count 263 MPV 10.3 Immature Gran % (Auto) 0.900 Neut % (Auto) 78.3 H Lymph % (Auto) 10.2 L Kimble % (Auto) 10.0 Eos % (Auto) 0.4 Baso % (Auto) 0.2 Absolute Neuts (auto) 10.4 H Absolute Lymphs (auto) 1.35 Nucleated RBC % 0 Sodium 128 L Potassium 5.7 H Chloride 88 L Carbon Dioxide 28.0 Anion Gap 12 BUN 126 H* Creatinine 9.32 H* Estim Creat Clear Calc 6.52 Est GFR (MDRD) Af Amer 7 L Est GFR (MDRD) Non-Af 6 L BUN/Creatinine Ratio 13.5 Glucose 227 H Lactic Acid 0.9 Calcium 8.7 Troponin I High Sens 17 B-Natriuretic Peptide 11/10/22 08:25 WBC RBC Hgb Hct MCV MCH MCHC RDW Std Deviation RDW Coeff of Kecia Plt Count MPV Immature Gran % (Auto) Neut % (Auto) Lymph % (Auto) Kimble % (Auto) Eos % (Auto) Baso % (Auto) Absolute Neuts (auto) Absolute Lymphs (auto) Nucleated RBC % Sodium Potassium Chloride Carbon Dioxide Anion Gap BUN Creatinine Estim Creat Clear Calc Est GFR (MDRD) Af Amer Est GFR (MDRD) Non-Af BUN/Creatinine Ratio Glucose Lactic Acid Calcium Troponin I High Sens B-Natriuretic Peptide 316.7 H ABG Data ABG results: ABG 11/10/22 11/10/22 08:59 10:17 Specimen Type ART ART Sample Site R Radial R Radial pH 7.28 L 7.29 L Bicarbonate Actual 26.5 H 24.6 Total CO2 28 26 Base Excess 0 -2 O2 Saturation 95 92 L O2 % 45 ABG pCO2 57.0 H 51.3 H ABG pO2 86 72 L Trevon Test Positive Positive O2 Delivery Device Cannula AVAPS Liter Flow 2.0 Tidal Volume 450 Radiography Chest X-Ray - ED: 1 View, Read by ED Physician and Chronic Changes (Cardiomegaly with right upper lobe mass similar to prior study.) Diagnostic Testing: Clinical Impression(s) from Imaging Studies Chest X-Ray 11/10/22 08:55 IMPRESSION: Stable 5.6 cm mass within the right upper lung highly suspicious for malignancy. Cardiomegaly. Electronically Signed: Carmen Crandall MD at 9:10 EDT , Treatment and Re-Evaluation :: Initial ABG reveals a pH of 7.275 with a PCO2 of 57 and a PaO2 of 85. His sat is 94%. He is placed on BiPAP as he normally wears this at night but has not been wearing it all weekend. CBC reveals a white count of 13.3 with 78% neutrophils. Hemoglobin is 11.0. Chemistry studies significant for a sodium of 128 and a chloride of 88. His glucose is 227. Potassium is 5.7. BUN is 126 and creatinine is 9.32. He is due for dialysis today. Lactic acid is normal at 0.9. Troponin is normal at 17. BNP is slightly elevated at 316. Chest x-ray per my interpretation reveals right upper lobe mass that was present on his prior study. Cardiomegaly is noted. Repeat ABG after being on BiPAP reveals PCO2 improved from 57 down to 51. His sat is 92%. His pH remains 7.288. Patient did complete 5 days of Levaquin. I will discuss with hospitalist regarding admission for BiPAP therapy to treat his elevated CO2 level. He will also need his dialysis while he is here. Discharge Plan Dx/Rx/DC Orders Clinical Impression: CO2 retention Disposition Disposition: Acute Care Hospital [facility] Discharge Date/Time: 11/10/22 12:31
[2022-11-10] MEDS: Ipratropium/Albuterol Sulfate 3 ML AMPUL.NEB INHALATION (08:47)
--- NOTE | 2022-11-10 08:55 | RAD_ITS ---
INDICATION: sob EXAMINATION/TECHNIQUE: X-RAY - XR Chest 1 View COMPARISON: November 03, 2022 FINDINGS: LINES/DEVICES: None. LUNGS: There is a stable 5.6 cm mass within the right upper lung. MEDIASTINUM AND CARDIOVASCULAR STRUCTURES: There is cardiomegaly. There are calcified mediastinal and hilar lymph nodes. BONES AND SOFT TISSUES: Unremarkable. RAD/Chest 1 View (Portable) IMPRESSION: Stable 5.6 cm mass within the right upper lung highly suspicious for malignancy. Cardiomegaly. Electronically Signed: Carmen Crandall MD at 9:10 EDT ,
[2022-11-10 09:05] LABS: Allen Test Positive; Base Excess 0 mmol/L (-2 to +2); Bicarbonate 26.5 mmol/L (22-26); Blood Gas Specimen Type ART; O2 Delivery Device Cannula; PO2 86 mmHG (75-100); SITE R Radial; SO2 95 % (95-99); Total Carbon Dioxide 28 mmol/L; pH 7.28 (7.35-7.45)
[2022-11-10 09:36] LABS: Absolute Lymphocyte Count 1.35 X10^3/uL (0.83-4.51); Absolute Neutrophil Count 10.4 X10^3/uL (2.0-7.7); Basophil# 0.02 X10^3/uL; Basophil% 0.2 % (0-1); Eosinophil# 0.05 X10^3/uL; Eosinophils% 0.4 % (0-5); Hematocrit 33.5 % (40-54); Lymphocyte # 1.35 X10^3/ul (0.83-4.51); Lymphocyte % 10.2 % (19-41); Mean Corp Hgb Conc 32.8 g/dL (32-36); Mean Corpuscular Hgb 33.2 pg (27.0-32.0); Mean Corpuscular Volume 101.2 fL (80-94); Mean Platelet Vol. 10.3 fl (6.2-12.0); Monocyte# 1.33 X10^3/uL; NRBC Flagged by Analyzer 0 % (0-5); Neutrophil # 10.39 X10^3/uL (2.7-7.7); Neutrophil % 78.3 % (47-70); Platelet Count 263 K/mm3 (150-450); RBC Distribution Width SD 51.9 fl (35.1-43.9); Red Blood Count 3.31 M/mm3 (4.6-6.2); White Blood Count 13.3 K/mm3 (4.4-11.0)
[2022-11-10 09:55] LABS: BNP,B-Type NATRIURETIC PEPTIDE 316.7 pg/mL (0-100)
[2022-11-10 09:58] LABS: Anion Gap 12 (5-15); BUN 126 mg/dL (7-18); BUN/Creat Ratio 13.5 RATIO (10-20); Calcium,Total 8.7 mg/dL (8.5-10.1); Chloride 88 mmol/L (98-107); Creatinine, Serum 9.32 mg/dL (0.70-1.30); EST Glomerular Filtration Rate 6 mL/min (>60); Est Glom Filt Rate - Afr Amer 7 mL/min (>60); Estimated Creatinine Clearance 6.52 ml/min; Glucose 227 mg/dL (74-106); Lactic Acid 0.9 mmol/L (0.4-1.9); Potassium 5.7 mmol/L (3.5-5.1); Sodium Level 128 mmol/L (136-145); Troponin-I HS 17 pg/mL (3.0-78.0)
[2022-11-10 10:26] LABS: Allen Test Positive; Base Excess -2 mmol/L (-2 to +2); Bicarbonate 24.6 mmol/L (22-26); Blood Gas Specimen Type ART; FI02 45; O2 Delivery Device AVAPS; PO2 72 mmHG (75-100); SITE R Radial; SO2 92 % (95-99); Total Carbon Dioxide 26 mmol/L; Vt 450; pCO2 51.3 mmHg (35-45); pH 7.29 (7.35-7.45)
--- NOTE | 2022-11-10 13:53 | PCM.HP.STD ---
HPI - General General Date of Admission: 11/10/22 Date of Service: 11/10/22 Chief Complaint: shortness of breath HPI Narrative TEX RICHMNOD, is a 76 M who presents patient [facility] from the prison secondary increasing weakness and falls. Patient was also notably short of breath and was placed on BiPAP. Patient was placed on BiPAP in the emergency room. Patient had chest x-ray that showed no acute infiltrates other than the right upper lobe mass that was noted on imaging from the . On , patient was seen in the emergency room and was diagnosed with the right upper lobe mass which was not present on previous chest x-rays back in May. The patient also had a left lower lobe infiltrate and was started on levofloxacin. Since being returned back to the prison he is progressive gotten weaker and falling more. Currently, the patient is sleeping and does not awake to verbal or tactile stimuli. History was obtained through the emergency room physician. Patient received DuoNebs in the emergency room. [facility] Medical History Abdominal pain [id number] kidney injury Alcohol abuse Alcohol abuse following liver transplant Alcohol withdrawal Anemia Arthritis Arthritis of carpometacarpal (CMC) joint of right thumb Chronic dermatitis Cirrhosis COPD (chronic obstructive pulmonary disease) COPD exacerbation CPAP (continuous positive airway pressure) dependence Depression Diabetes mellitus Dietary restriction Dyspnea Encephalopathy Former smoker Fracture of left olecranon process Gastric reflux Gout History of anxiety History of CHF (congestive heart failure) History of echocardiogram History of IBS History of renal disease History of skin cancer History of ulceration HTN (hypertension) Hypokalemia Hypoxia Infected ulcer of skin Macular degeneration Nausea & vomiting Non-healing non-surgical wound assisted resident On home oxygen therapy OLVIN (obstructive sleep apnea) Shortness of breath on exertion Superficial ulcer of skin Thyroid disease Urticaria Venous insufficiency of both lower extremities Walker as ambulation aid Wears glasses Home Medications levothyroxine 75 mcg tablet 75 mcg PO DAILY thyroid 11/19/13 [History Last Taken 06/10/22] tacrolimus 1 mg capsule, immediate-release 0.5 mg PO BID transplant med 06/09/16 [History Last Taken 06/10/22] allopurinol 100 mg tablet 100 mg PO DAILY Gout 07/07/19 [History Last Taken 06/10/22] bupropion HCl 150 mg tablet,12 hr sustained-release 150 mg PO BID major depressive disorder 07/07/19 [History Last Taken 06/10/22] multivit with minerals-folic acid-lycopene 0.4 mg-600 mcg tablet 1 tablet PO DAILY supplement 07/07/19 [History Last Taken 06/10/22] aspirin 81 mg tablet,delayed release 81 mg PO DAILY@0800 heart health 08/30/20 [History Last Taken 06/10/22] ergocalciferol (vitamin D2) 1,250 mcg (50,000 unit) capsule 50,000 unit PO MO supplement 08/30/20 [History Last Taken 05/22/22] ketoconazole 2 % shampoo 1 applic TP MOWEFR dry scalp 08/30/20 [History Last Taken 06/09/22] magnesium oxide 400 mg PO TID supplement 08/30/20 [History Last Taken 06/10/22] sertraline 100 mg tablet 100 mg PO QHS depression 08/30/20 [History Last Taken 06/09/22] fluticasone propionate 50 mcg/actuation nasal spray,suspension (Flonase Allergy Relief) 2 spray intranasal DAILY allergies 03/11/21 [History Last Taken 06/10/22] ipratropium 0.5 mg-albuterol 3 mg (2.5 mg base)/3 mL nebulization soln 3 ml inhalation Q6H PRN Wheezing 03/11/21 [History Last Taken 06/10/22] sennosides 8.6 mg tablet (senna) 8.6 mg PO PRN PRN Constipation 03/11/21 [History Last Taken Unknown] zolpidem 5 mg tablet 5 mg PO QHS PRN Insomnia 03/11/21 [History Last Taken 06/09/22] acetaminophen 500 mg tablet 500 mg PO Q6H PRN Pain 02/06/22 [History Last Taken Unknown] bisacodyl 10 mg rectal suppository 10 mg SD Q18H PRN Constipation 02/06/22 [History Last Taken Unknown] calcium carbonate 200 mg calcium (500 mg) chewable tablet (Tums) 200 mg PO Q18H PRN Indigestion 02/06/22 [History Last Taken Unknown] docusate sodium 100 mg capsule (Colace) 100 mg PO DAILY PRN Constipation 02/06/22 [History Last Taken Unknown] furosemide 20 mg tablet (Lasix) 20 mg PO DAILY 02/06/22 [History Last Taken 06/10/22] insulin glargine 100 unit/mL (3 mL) subcutaneous pen (Lantus Solostar U-100 Insulin) 50 unit subcut BREAKFAST DIABETES 02/06/22 [History Last Taken 11/09/22] loperamide 2 mg capsule (Imodium A-D) 2 mg PO Q6H PRN Diarrhea 02/06/22 [History Last Taken 06/10/22] menthol 4 % topical gel (Biofreeze (menthol)) 1 applic topical BID PRN Pain 02/06/22 [History Last Taken Unknown] miconazole nitrate 2 % topical cream 1 applic topical QHS 02/06/22 [History Last Taken 06/10/22] gabapentin 100 mg capsule 100 mg PO TID 04/04/22 [History Last Taken 06/10/22] semaglutide 0.25 mg or 0.5 mg (2 mg/1.5 mL) subcutaneous pen injector (Ozempic) 0.75 mg subcut MO 04/04/22 [History Last Taken 06/09/22] prednisone 20 mg tablet 20 mg PO DAILY 04/24/22 [History Last Taken 06/10/22] calcitriol 0.25 mcg capsule 0.25 mcg PO DAILY KIDNEY DISEASE 06/10/22 [History Last Taken 06/10/22] cetirizine 10 mg tablet (Zyrtec) 10 mg PO DAILY PRN ALLERGIES 06/10/22 [History Last Taken 06/10/22] sulfamethoxazole 800 mg-trimethoprim 160 mg tablet 1 tab PO MOWEFR INFECTION PREVENTION 06/10/22 [History Last Taken 06/09/22] tamsulosin 0.4 mg capsule 0.4 mg PO BID PROSTAIT 06/10/22 [History Last Taken 06/10/22] diltiazem HCl 120 mg capsule,extended release 24 hr 120 mg PO DAILY #0 caps 06/15/22 [Rx Last Taken Unknown] metoprolol tartrate 50 mg tablet 50 mg PO BID #0 tabs 06/15/22 [Rx Last Taken Unknown] warfarin 5 mg tablet (Jantoven) 5 mg PO DAILY@1700 #0 tabs 06/15/22 [Rx Last Taken Unknown] oxycodone-acetaminophen 5 mg-325 mg tablet 1 tab PO Q6H PRN PRN pain 5 days #20 TABLETS 07/14/22 [Rx Last Taken Unknown] famotidine 40 mg tablet 40 mg PO .COMPLEX REFLUX 11/10/22 [History Last Taken Unknown] insulin lispro 100 unit/mL subcutaneous pen (Humalog KwikPen (U-100) Insulin) See Rx Instructions .Route .COMPLEX DIABETES 11/10/22 [History Last Taken 11/09/22] levofloxacin 500 mg tablet 250 mg PO DAILY ANTIBIOTIC 11/10/22 [History Last Taken 11/08/22] polyethylene glycol 3350 17 gram/dose oral powder (Miralax) 4 g PO DAILY CONSTIPATION 11/10/22 [History Last Taken 11/09/22] Allergy/AdvReac Type Severity Reaction Status Date / Time cortisone [Cortisone] Allergy Angioedema Verified 11/10/22 08:18 Penicillins Allergy Unknown Verified 11/10/22 08:18 Surgical History History of esophagogastroduodenoscopy (EGD) History of excision of pilonidal cyst History of knee surgery History of parathyroid surgery History of tonsillectomy Hx of thumb surgery Social History household members: none housing: prison Smoking Status: Former smoker alcohol intake: former substance use type: does not use ROS Review of Systems ROS Unobtainable: due to encephalopathy Vital Signs Vital Signs Vital Signs: 11/10/22 08:19 11/10/22 08:29 11/10/22 08:52 Temperature 36.8 C Temperature Source Oral Pulse Rate 95 75 Respiratory Rate 20 H 24 H Respiratory Effort Short of Breath Labored Accessory Muscle Use Respiratory Pattern Tachypnea Blood Pressure 100/77 Blood Pressure Mean 84 Blood Pressure Source Blood Pressure Position Blood Pressure Location Pulse Ox 96 Oxygen Delivery Method Nasal Cannula Nasal Cannula Oxygen Flow Rate (L/min) 2 2 Fraction of Inspired Oxygen (FIO2) 11/10/22 09:09 11/10/22 09:30 11/10/22 09:37 Temperature Temperature Source Pulse Rate 64 60 60 Respiratory Rate 16 14 14 Respiratory Effort Respiratory Pattern Blood Pressure 105/76 Blood Pressure Mean 85 Blood Pressure Source Blood Pressure Position Blood Pressure Location Pulse Ox 95 93 97 Oxygen Delivery Method Bi-pap Oxygen Flow Rate (L/min) Fraction of Inspired Oxygen (FIO2) 30 45 11/10/22 10:08 11/10/22 10:22 11/10/22 11:14 Temperature Temperature Source Pulse Rate 57 L 58 L 74 Respiratory Rate 10 L 19 H 16 Respiratory Effort Respiratory Pattern Blood Pressure 126/78 H 130/78 H Blood Pressure Mean 94 95 Blood Pressure Source Blood Pressure Position Blood Pressure Location Pulse Ox 95 94 95 Oxygen Delivery Method Bi-pap Oxygen Flow Rate (L/min) Fraction of Inspired Oxygen (FIO2) 40 11/10/22 12:06 11/10/22 12:06 11/10/22 12:55 Temperature 35.9 C L 36.7 C Temperature Source Temporal Temporal Pulse Rate 65 78 112 H Respiratory Rate 11 L 18 18 Respiratory Effort Respiratory Pattern Blood Pressure 136/72 H 136/72 H 115/62 Blood Pressure Mean 93 93 79 Blood Pressure Source Monitor Blood Pressure Position Semi-Fowlers Blood Pressure Location Right Arm Pulse Ox 97 99 99 Oxygen Delivery Method Bi-pap Bi-pap Bi-pap Oxygen Flow Rate (L/min) Fraction of Inspired Oxygen (FIO2) 35 Weight Weight: 101 kg Body Mass Index (BMI) 33.8 Physical Exam Const Constitutional Narrative: On BiPAP. Does not awaken to verbal or tactile stimuli. No respiratory distress. No conversational dyspnea. HEENT normocephalic and head/scalp atraumatic Resp normal respiratory effort and no retractions Resp Narrative: Coarse breath sounds bilaterally Cardio regular rate, regular rhythm, S1 normal heart sound and S2 normal heart sound GI normal to inspection, nondistended, normoactive bowel sounds, soft to palpation, non-tender and non-distended Neuro moves all extremities Results Lab / Micro Data Attestation: I reviewed the patient's lab results. Result Diagrams: 11/10/22 08:25 11/10/22 08:25 Labs: Laboratory Results - last 24 hr 11/10/22 08:25: WBC 13.3 H, RBC 3.31 L, Hgb 11.0 L, Hct 33.5 L, MCV 101.2 H, MCH 33.2 H, MCHC 32.8, RDW Std Deviation 51.9 H, RDW Coeff of Kecia 14.0, Plt Count 263, MPV 10.3, Immature Gran % (Auto) 0.900, Neut % (Auto) 78.3 H, Lymph % (Auto) 10.2 L, Alf[place]a % (Auto) 10.0, Eos % (Auto) 0.4, Baso % (Auto) 0.2, Absolute Neuts (auto) 10.4 H, Absolute Lymphs (auto) 1.35, Nucleated RBC % 0 11/10/22 08:25: Sodium 128 L, Potassium 5.7 H, Chloride 88 L, Carbon Dioxide 28.0, Anion Gap 12, BUN 126 H*, Creatinine 9.32 H*, Estim Creat Clear Calc 6.52, Est GFR (MDRD) Af Amer 7 L, Est GFR (MDRD) Non-Af 6 L, BUN/Creatinine Ratio 13.5, Glucose 227 H, Calcium 8.7, Troponin I High Sens 17 11/10/22 08:25: Lactic Acid 0.9 11/10/22 08:25: B-Natriuretic Peptide 316.7 H ABG Data ABG results: ABG 11/10/22 11/10/22 08:59 10:17 Specimen Type ART ART Sample Site R Radial R Radial pH 7.28 L 7.29 L Bicarbonate Actual 26.5 H 24.6 Total CO2 28 26 Base Excess 0 -2 O2 Saturation 95 92 L O2 % 45 ABG pCO2 57.0 H 51.3 H ABG pO2 86 72 L Trevon Test Positive Positive O2 Delivery Device Cannula AVAPS Liter Flow 2.0 Tidal Volume 450 Radiology Impression Chest X-Ray 11/10/22 08:55 IMPRESSION: Stable 5.6 cm mass within the right upper lung highly suspicious for malignancy. Cardiomegaly. Electronically Signed: Carmen Crandall MD at 9:10 EDT , Assessment & Plan Assessment/Plan (1) Acute on chronic respiratory failure with hypoxia and hypercapnia: PLAN: ABG shows respiratory acidosis. PCO2 was 51.3 and PO2 was 72. Placed on BiPAP in the emergency room and will continue for now. Likely multifactorial: Due to COPD, lung mass and pneumonia (2) COPD with acute exacerbation: PLAN: Will treat empirically with bronchodilators as well as methylprednisolone. As steroids are weaned down, would recommend slow taper down to 20 mg daily. (3) Pneumonia: PLAN: Noted on a CAT scan from the Will check sputum culture, urinary antigens are septic coccus Legionella Pulmonary toilet Antibiotics with ceftriaxone and azithromycin. Hold levofloxacin for now. (4) Lung mass: PLAN: Noted on CAT scan. Not present on chest x-ray images from May Consult pulmonary. If intervention is required then we will need to hold off on the warfarin. (5) Hypokalemia: PLAN: Anticipate improvements with dialysis. (6) Hyponatremia: PLAN: Would monitor. If persist, recommend checking additional work-up including TSH cortisol. (7) Encephalopathy acute: PLAN: May be multifactorial due to the respiratory failure but also component of medications, including gabapentin, which will be held. Hold potentiating agents. Cannot rule out uremia (8) End stage renal disease: PLAN: Nephrology consulted Plan is for hemodialysis today. PLAN: Plan Chronic conditions Diabetes mellitus type 2: Insulin-dependent.? Continue with basal and sliding scale insulin. Hypothyroidism: Continue levothyroxine Peptic ulcer disease: Continue PPI A-fib: Continue with diltiazem and metoprolol. Anticoagulated with warfarin. Check INR Liver transplant: 2006. Continue with steroids and tacrolimus. Continue with Bactrim. Heart failure preserved ejection fraction: Chronic. EF 55% from 2D echocardiogram on June 10, 2022. VTE prophylaxis: Not indicated as patient is actively taking warfarin. Charges/Coding Visit Charges Inpatient E&M: 71031 Init Hosp L3
--- NOTE | 2022-11-10 13:53 | PCM.CONS.R ---
Assessment & Plan Assessment/Plan (1) ESRD on hemodialysis: PLAN: ESRD, on hemodialysis. Hyperkalemia, borderline Dialysis has been arranged for today. New onset lung mass. Chest x-ray from May was okay. He was here about [address] chest shows lung mass. Discussed with hospitalist. Pulmonology will be consulted. He is on immunosuppression with tacrolimus for history of liver transplant. If this is a confirmed malignancy, this probably needs to be changed to sirolimus. We will check with family if he still follows with transplant clinic HPI Consult Data Date of Consult: 11/10/22 HPI Narrative Reason for Consultation: ESRD. HPI Narrative: TEX RICHMOND, is a 76 M who presents to the hospital with altered mental status, lethargy. He is known to me from outpatient dialysis unit. History of ESRD, on dialysis at the [facility]. Usually gets dialysis Thursday, Thursday, Thursday, Thursday. He was in the ER 4 days ago with shortness of breath, was discharged with antibiotics. Came back with altered mental status. Called and spoke to dialysis unit. Last dialysis was on Thursday. No issues with dialysis recently. He is currently lethargic, unable to provide much history. Review of systems could not be obtained. [facility] Medical History Abdominal pain [id number] kidney injury Alcohol abuse Alcohol abuse following liver transplant Alcohol withdrawal Anemia Arthritis Arthritis of carpometacarpal (CMC) joint of right thumb Chronic dermatitis Cirrhosis COPD (chronic obstructive pulmonary disease) COPD exacerbation CPAP (continuous positive airway pressure) dependence Depression Diabetes mellitus Dietary restriction Dyspnea Encephalopathy Former smoker Fracture of left olecranon process Gastric reflux Gout History of anxiety History of CHF (congestive heart failure) History of echocardiogram History of IBS History of renal disease History of skin cancer History of ulceration HTN (hypertension) Hypokalemia Hypoxia Infected ulcer of skin Macular degeneration Nausea & vomiting Non-healing non-surgical wound [facility] resident On home oxygen therapy OLVIN (obstructive sleep apnea) Shortness of breath on exertion Superficial ulcer of skin Thyroid disease Urticaria Venous insufficiency of both lower extremities Walker as ambulation aid Wears glasses Home Medications levothyroxine 75 mcg tablet 75 mcg PO DAILY thyroid 11/19/13 [History Last Taken 06/10/22] tacrolimus 1 mg capsule, immediate-release 0.5 mg PO BID transplant med 06/09/16 [History Last Taken 06/10/22] allopurinol 100 mg tablet 100 mg PO DAILY Gout 07/07/19 [History Last Taken 06/10/22] bupropion HCl 150 mg tablet,12 hr sustained-release 150 mg PO BID major depressive disorder 07/07/19 [History Last Taken 06/10/22] multivit with minerals-folic acid-lycopene 0.4 mg-600 mcg tablet 1 tablet PO DAILY supplement 07/07/19 [History Last Taken 06/10/22] aspirin 81 mg tablet,delayed release 81 mg PO DAILY@0800 heart health 08/30/20 [History Last Taken 06/10/22] ergocalciferol (vitamin D2) 1,250 mcg (50,000 unit) capsule 50,000 unit PO MO supplement 08/30/20 [History Last Taken 05/22/22] ketoconazole 2 % shampoo 1 applic TP MOWEFR dry scalp 08/30/20 [History Last Taken 06/09/22] magnesium oxide 400 mg PO TID supplement 08/30/20 [History Last Taken 06/10/22] sertraline 100 mg tablet 100 mg PO QHS depression 08/30/20 [History Last Taken 06/09/22] fluticasone propionate 50 mcg/actuation nasal spray,suspension (Flonase Allergy Relief) 2 spray intranasal DAILY allergies 03/11/21 [History Last Taken 06/10/22] ipratropium 0.5 mg-albuterol 3 mg (2.5 mg base)/3 mL nebulization soln 3 ml inhalation Q6H PRN Wheezing 03/11/21 [History Last Taken 06/10/22] sennosides 8.6 mg tablet (senna) 8.6 mg PO PRN PRN Constipation 03/11/21 [History Last Taken Unknown] zolpidem 5 mg tablet 5 mg PO QHS PRN Insomnia 03/11/21 [History Last Taken 06/09/22] acetaminophen 500 mg tablet 500 mg PO Q6H PRN Pain 02/06/22 [History Last Taken Unknown] bisacodyl 10 mg rectal suppository 10 mg MN Q18H PRN Constipation 02/06/22 [History Last Taken Unknown] calcium carbonate 200 mg calcium (500 mg) chewable tablet (Tums) 200 mg PO Q18H PRN Indigestion 02/06/22 [History Last Taken Unknown] docusate sodium 100 mg capsule (Colace) 100 mg PO DAILY PRN Constipation 02/06/22 [History Last Taken Unknown] furosemide 20 mg tablet (Lasix) 20 mg PO DAILY 02/06/22 [History Last Taken 06/10/22] insulin glargine 100 unit/mL (3 mL) subcutaneous pen (Lantus Solostar U-100 Insulin) 50 unit subcut BREAKFAST DIABETES 02/06/22 [History Last Taken 11/09/22] loperamide 2 mg capsule (Imodium A-D) 2 mg PO Q6H PRN Diarrhea 02/06/22 [History Last Taken 06/10/22] menthol 4 % topical gel (Biofreeze (menthol)) 1 applic topical BID PRN Pain 02/06/22 [History Last Taken Unknown] miconazole nitrate 2 % topical cream 1 applic topical QHS 02/06/22 [History Last Taken 06/10/22] gabapentin 100 mg capsule 100 mg PO TID 04/04/22 [History Last Taken 06/10/22] semaglutide 0.25 mg or 0.5 mg (2 mg/1.5 mL) subcutaneous pen injector (Ozempic) 0.75 mg subcut MO 04/04/22 [History Last Taken 06/09/22] prednisone 20 mg tablet 20 mg PO DAILY 04/24/22 [History Last Taken 06/10/22] calcitriol 0.25 mcg capsule 0.25 mcg PO DAILY KIDNEY DISEASE 06/10/22 [History Last Taken 06/10/22] cetirizine 10 mg tablet (Zyrtec) 10 mg PO DAILY PRN ALLERGIES 06/10/22 [History Last Taken 06/10/22] sulfamethoxazole 800 mg-trimethoprim 160 mg tablet 1 tab PO MOWEFR INFECTION PREVENTION 06/10/22 [History Last Taken 06/09/22] tamsulosin 0.4 mg capsule 0.4 mg PO BID PROSTAIT 06/10/22 [History Last Taken 06/10/22] diltiazem HCl 120 mg capsule,extended release 24 hr 120 mg PO DAILY #0 caps 06/15/22 [Rx Last Taken Unknown] metoprolol tartrate 50 mg tablet 50 mg PO BID #0 tabs 06/15/22 [Rx Last Taken Unknown] warfarin 5 mg tablet (Jantoven) 5 mg PO DAILY@1700 #0 tabs 06/15/22 [Rx Last Taken Unknown] oxycodone-acetaminophen 5 mg-325 mg tablet 1 tab PO Q6H PRN PRN pain 5 days #20 TABLETS 07/14/22 [Rx Last Taken Unknown] famotidine 40 mg tablet 40 mg PO .COMPLEX REFLUX 11/10/22 [History Last Taken Unknown] insulin lispro 100 unit/mL subcutaneous pen (Humalog KwikPen (U-100) Insulin) See Rx Instructions .Route .COMPLEX DIABETES 11/10/22 [History Last Taken 11/09/22] levofloxacin 500 mg tablet 250 mg PO DAILY ANTIBIOTIC 11/10/22 [History Last Taken 11/08/22] polyethylene glycol 3350 17 gram/dose oral powder (Miralax) 4 g PO DAILY CONSTIPATION 11/10/22 [History Last Taken 11/09/22] Allergy/AdvReac Type Severity Reaction Status Date / Time cortisone [Cortisone] Allergy Angioedema Verified 11/10/22 08:18 Penicillins Allergy Unknown Verified 11/10/22 08:18 Surgical History History of esophagogastroduodenoscopy (EGD) History of excision of pilonidal cyst History of knee surgery History of parathyroid surgery History of tonsillectomy Hx of thumb surgery Social History household members: none housing: [facility] Smoking Status: Former smoker alcohol intake: former substance use type: does not use Physical Exam Narrative Sleepy no obvious distress no pallor no icterus no JVD s1s2 no murmurs lungs clear abdomen soft no organomegaly no edema Lab / Micro Data Result Diagrams: 11/10/22 08:25 11/10/22 08:25 Labs: Laboratory Results - last 24 hr 11/10/22 08:25: WBC 13.3 H, RBC 3.31 L, Hgb 11.0 L, Hct 33.5 L, MCV 101.2 H, MCH 33.2 H, MCHC 32.8, RDW Std Deviation 51.9 H, RDW Coeff of Kecia 14.0, Plt Count 263, MPV 10.3, Immature Gran % (Auto) 0.900, Neut % (Auto) 78.3 H, Lymph % (Auto) 10.2 L, [place] % (Auto) 10.0, Eos % (Auto) 0.4, Baso % (Auto) 0.2, Absolute Neuts (auto) 10.4 H, Absolute Lymphs (auto) 1.35, Nucleated RBC % 0 11/10/22 08:25: Sodium 128 L, Potassium 5.7 H, Chloride 88 L, Carbon Dioxide 28.0, Anion Gap 12, BUN 126 H*, Creatinine 9.32 H*, Estim Creat Clear Calc 6.52, Est GFR (MDRD) Af Amer 7 L, Est GFR (MDRD) Non-Af 6 L, BUN/Creatinine Ratio 13.5, Glucose 227 H, Calcium 8.7, Troponin I High Sens 17 11/10/22 08:25: Lactic Acid 0.9 11/10/22 08:25: B-Natriuretic Peptide 316.7 H ABG Data ABG results: ABG 11/10/22 11/10/22 08:59 10:17 Specimen Type ART ART Sample Site R Radial R Radial pH 7.28 L 7.29 L Bicarbonate Actual 26.5 H 24.6 Total CO2 28 26 Base Excess 0 -2 O2 Saturation 95 92 L O2 % 45 ABG pCO2 57.0 H 51.3 H ABG pO2 86 72 L Trevon Test Positive Positive O2 Delivery Device Cannula AVAPS Liter Flow 2.0 Tidal Volume 450 Radiology Impression Chest X-Ray 11/10/22 08:55 IMPRESSION: Stable 5.6 cm mass within the right upper lung highly suspicious for malignancy. Cardiomegaly. Electronically Signed: Carmen Crandall MD at 9:10 EDT ,
--- NOTE | 2022-11-10 14:49 | EX.PCM.CONCC ---
Assessment & Plan Assessment/Plan (1) Acute on chronic respiratory failure with hypoxia and hypercapnia: (2) Mass of right lung: PLAN: Plan RECOMMENDATIONS: 1. Proceed with dialysis to see if mental status improves 2. BiPAP overnight. Potential breaks tomorrow during the day 3. Attempt to determine goals of therapy once mental status improves 4. Keep oxygen saturations between 90 and 96% to avoid CO2 retention 5. Potential CT-guided biopsy as an outpatient IMPRESSIONS: 1. Lung mass Review of outpatient chest x-ray shows a possibility of this being present in May, but not present in 2020. Patient is immunosuppressed, so fungal ball versus malignancy would be a concern. Patient is currently on steroid therapy. Patient does also have significant uremia. We will attempt to address patient's mental status change, but a biopsy would be recommended if patient is to remain aggressive. Appearance on CT scan is not really consistent with a pulmonary abscess, but fungal ball is possible. No central clearing has been noted at this time. There is likely no emergent issue to proceed with biopsy as an inpatient 2. Metabolic encephalopathy Patient with significant acidosis on presentation. Some concern the patient may not be able to tolerate metabolic acidosis associated with renal failure. Patient should receive hemodialysis and see if things improve. Possible BiPAP breaks tomorrow. Would get a blood gas if mental status continues to worsen. Unable to confirm CODE STATUS, so cannot exclude the need for intubation if decision-maker cannot be found. 3. Acute on chronic hypercarbic respiratory failure secondary to COPD with possible exacerbation Patient currently being treated empirically with bronchodilators and steroids. Anticipate a 5-day burst of steroids likely sufficient. Patient has a sputum culture, ceftriaxone and azithromycin currently ordered. Patient does have some hyponatremia, so paraneoplastic syndrome would be a possibility. Patient requiring BiPAP rescue with CO2 retention. Unclear if this is related to a COPD exacerbation versus failure to compensate for none anion gap metabolic acidosis 4. End-stage renal disease Nephrology has been consulted. Patient was significant uremia at this time. Recommend completing dialysis with volume removal if possible. If patient remains confused, finding a decision maker will be important moving forward given patient's tenuous respiratory status. 5. Hyponatremia/hypokalemia/diabetes mellitus/obesity/advanced age/hypertension/history of transplant Complicates care, management, recovery and prognosis. We will need to watch blood sugars closely as patient is insulin-dependent at baseline. Patient does have a history of A-fib and currently anticoagulated with warfarin. INR has been ordered. Patient has been maintained on tacrolimus. Patient may benefit from podiatry consult given foot examination, but defer to primary service. HPI Consult Data Date of Consult: 11/10/22 HPI Narrative HPI Narrative: TEX RICHMOND is a 76 M, with past medical history listed below, who presents to [facility] on 11/10/2022 secondary to increasing weakness and falls. Patient reportedly had been to the ER on the and was found to have a medial right upper lobe mass and a patchy left lower lobe infiltrate and was started on Levaquin. Patient reportedly was sent back to the emergency department, but did not receive Levaquin over the weekend. Patient had increasing weakness and reportedly had fallen 4 other times. Patient is dialysis dependent and is a poor historian. Patient does have a history of liver transplantation and OLVIN. In the ER, patient was afebrile, but tachypneic at 24 breaths/min. Patient was requiring 2 L nasal cannula to maintain saturations. Laboratory data showed a white cell count of 13.3, hemoglobin of 11 and platelets of 263. Chemistry showed a potassium of 5.7, sodium of 128 and bicarbonate of 28. Patient had a BUN of 126 with a creatinine of 9.3. Lactic acid was within normal limits, but BNP was slightly elevated at 316. An ABG showed a partially compensated respiratory acidosis with minimal change after BiPAP. Chest x-ray showed a stable 5.6 cm mass in the right upper lobe and cardiomegaly. Given change in mental status and need for BiPAP, patient was admitted to the floor. Given patient's lung mass, a pulmonary consult was obtained. Patient is a relatively poor historian. Patient does open his eyes and answers appropriately intermittently. However, during my evaluation patient did state that he had no hemoptysis, but was not able to tell me whether he has been using his BiPAP at the [facility]. Patient reportedly has not had any fevers or chills. Patient is not reporting any productive cough. Patient has not had any trauma. Patient was not able to verbalize his goals of therapy. [facility] Medical History Abdominal pain [id number] kidney injury Alcohol abuse Alcohol abuse following liver transplant Alcohol withdrawal Anemia Arthritis Arthritis of carpometacarpal (CMC) joint of right thumb Chronic dermatitis Cirrhosis COPD (chronic obstructive pulmonary disease) COPD exacerbation CPAP (continuous positive airway pressure) dependence Depression Diabetes mellitus Dietary restriction Dyspnea Encephalopathy Former smoker Fracture of left olecranon process Gastric reflux Gout History of anxiety History of CHF (congestive heart failure) History of echocardiogram History of IBS History of renal disease History of skin cancer History of ulceration HTN (hypertension) Hypokalemia Hypoxia Infected ulcer of skin Macular degeneration Nausea & vomiting Non-healing non-surgical wound assisted resident On home oxygen therapy OLVIN (obstructive sleep apnea) Shortness of breath on exertion Superficial ulcer of skin Thyroid disease Urticaria Venous insufficiency of both lower extremities Walker as ambulation aid Wears glasses Home Medications levothyroxine 75 mcg tablet 75 mcg PO DAILY thyroid 11/19/13 [History Last Taken 06/10/22] tacrolimus 1 mg capsule, immediate-release 0.5 mg PO BID transplant med 06/09/16 [History Last Taken 06/10/22] allopurinol 100 mg tablet 100 mg PO DAILY Gout 07/07/19 [History Last Taken 06/10/22] bupropion HCl 150 mg tablet,12 hr sustained-release 150 mg PO BID major depressive disorder 07/07/19 [History Last Taken 06/10/22] multivit with minerals-folic acid-lycopene 0.4 mg-600 mcg tablet 1 tablet PO DAILY supplement 07/07/19 [History Last Taken 06/10/22] aspirin 81 mg tablet,delayed release 81 mg PO DAILY@0800 [facility] 08/30/20 [History Last Taken 06/10/22] ergocalciferol (vitamin D2) 1,250 mcg (50,000 unit) capsule 50,000 unit PO MO supplement 08/30/20 [History Last Taken 05/22/22] ketoconazole 2 % shampoo 1 applic TP MOWEFR dry scalp 08/30/20 [History Last Taken 06/09/22] magnesium oxide 400 mg PO TID supplement 08/30/20 [History Last Taken 06/10/22] sertraline 100 mg tablet 100 mg PO QHS depression 08/30/20 [History Last Taken 06/09/22] fluticasone propionate 50 mcg/actuation nasal spray,suspension (Flonase Allergy Relief) 2 spray intranasal DAILY allergies 03/11/21 [History Last Taken 06/10/22] ipratropium 0.5 mg-albuterol 3 mg (2.5 mg base)/3 mL nebulization soln 3 ml inhalation Q6H PRN Wheezing 03/11/21 [History Last Taken 06/10/22] sennosides 8.6 mg tablet (senna) 8.6 mg PO PRN PRN Constipation 03/11/21 [History Last Taken Unknown] zolpidem 5 mg tablet 5 mg PO QHS PRN Insomnia 03/11/21 [History Last Taken 06/09/22] acetaminophen 500 mg tablet 500 mg PO Q6H PRN Pain 02/06/22 [History Last Taken Unknown] bisacodyl 10 mg rectal suppository 10 mg SC Q18H PRN Constipation 02/06/22 [History Last Taken Unknown] calcium carbonate 200 mg calcium (500 mg) chewable tablet (Tums) 200 mg PO Q18H PRN Indigestion 02/06/22 [History Last Taken Unknown] docusate sodium 100 mg capsule (Colace) 100 mg PO DAILY PRN Constipation 02/06/22 [History Last Taken Unknown] furosemide 20 mg tablet (Lasix) 20 mg PO DAILY 02/06/22 [History Last Taken 06/10/22] insulin glargine 100 unit/mL (3 mL) subcutaneous pen (Lantus Solostar U-100 Insulin) 50 unit subcut BREAKFAST DIABETES 02/06/22 [History Last Taken 11/09/22] loperamide 2 mg capsule (Imodium A-D) 2 mg PO Q6H PRN Diarrhea 02/06/22 [History Last Taken 06/10/22] menthol 4 % topical gel (Biofreeze (menthol)) 1 applic topical BID PRN Pain 02/06/22 [History Last Taken Unknown] miconazole nitrate 2 % topical cream 1 applic topical QHS 02/06/22 [History Last Taken 06/10/22] gabapentin 100 mg capsule 100 mg PO TID 04/04/22 [History Last Taken 06/10/22] semaglutide 0.25 mg or 0.5 mg (2 mg/1.5 mL) subcutaneous pen injector (Ozempic) 0.75 mg subcut MO 04/04/22 [History Last Taken 06/09/22] prednisone 20 mg tablet 20 mg PO DAILY 04/24/22 [History Last Taken 06/10/22] calcitriol 0.25 mcg capsule 0.25 mcg PO DAILY KIDNEY DISEASE 06/10/22 [History Last Taken 06/10/22] cetirizine 10 mg tablet (Zyrtec) 10 mg PO DAILY PRN ALLERGIES 06/10/22 [History Last Taken 06/10/22] sulfamethoxazole 800 mg-trimethoprim 160 mg tablet 1 tab PO MOWEFR INFECTION PREVENTION 06/10/22 [History Last Taken 06/09/22] tamsulosin 0.4 mg capsule 0.4 mg PO BID PROSTAIT 06/10/22 [History Last Taken 06/10/22] diltiazem HCl 120 mg capsule,extended release 24 hr 120 mg PO DAILY #0 caps 06/15/22 [Rx Last Taken Unknown] metoprolol tartrate 50 mg tablet 50 mg PO BID #0 tabs 06/15/22 [Rx Last Taken Unknown] warfarin 5 mg tablet (Jantoven) 5 mg PO DAILY@1700 #0 tabs 06/15/22 [Rx Last Taken Unknown] oxycodone-acetaminophen 5 mg-325 mg tablet 1 tab PO Q6H PRN PRN pain 5 days #20 TABLETS 07/14/22 [Rx Last Taken Unknown] famotidine 40 mg tablet 40 mg PO .COMPLEX REFLUX 11/10/22 [History Last Taken Unknown] insulin lispro 100 unit/mL subcutaneous pen (Humalog KwikPen (U-100) Insulin) See Rx Instructions .Route .COMPLEX DIABETES 11/10/22 [History Last Taken 11/09/22] levofloxacin 500 mg tablet 250 mg PO DAILY ANTIBIOTIC 11/10/22 [History Last Taken 11/08/22] polyethylene glycol 3350 17 gram/dose oral powder (Miralax) 4 g PO DAILY CONSTIPATION 11/10/22 [History Last Taken 11/09/22] Allergy/AdvReac Type Severity Reaction Status Date / Time cortisone [Cortisone] Allergy Angioedema Verified 11/10/22 08:18 Penicillins Allergy Unknown Verified 11/10/22 08:18 Surgical History History of esophagogastroduodenoscopy (EGD) History of excision of pilonidal cyst History of knee surgery History of parathyroid surgery History of tonsillectomy Hx of thumb surgery Social History household members: none housing: [facility] Smoking Status: Former smoker alcohol intake: former substance use type: does not use Physical Exam Const Constitutional Narrative: On BiPAP. Opens eyes to tactile stimulus. No respiratory distress. No conversational dyspnea. Obese. Good BiPAP synchrony. Jaundice noted. HEENT normocephalic and head/scalp atraumatic Eyes PERRL, EOMs intact bilaterally and conjunctivae normal Neck full ROM Neck Narrative: Unable to assess for JVD secondary to BiPAP Resp normal respiratory effort and no retractions Auscultation: rhonchi; Negative for rales or wheezes Cardio regular rate, regular rhythm, S1 normal heart sound, S2 normal heart sound, no murmurs, no rub and no gallops GI normal to inspection, nondistended, normoactive bowel sounds, soft to palpation, non-tender and non-distended Extremity Extremity Narrative: Significant onychomycosis with superficial ulcerations and granulation tissue Skin Skin Narrative: Dermal atrophy noted Neuro moves all extremities Psych Mood & Affect: flat affect Medical Records Data Attestation: I reviewed the patient's medical records Medical records narrative: Patient does have a history of obstructive sleep apnea and has seen Dr. Reyez in the past. Patient is to be on 14/8 cmH2O. Unable to confirm compliance Lab / Micro Data Attestation: I reviewed the patient's lab results. Result Diagrams: 11/10/22 08:25 11/10/22 08:25 Labs: Laboratory Results - last 24 hr 11/10/22 08:25: WBC 13.3 H, RBC 3.31 L, Hgb 11.0 L, Hct 33.5 L, MCV 101.2 H, MCH 33.2 H, MCHC 32.8, RDW Std Deviation 51.9 H, RDW Coeff of Kecia 14.0, Plt Count 263, MPV 10.3, Immature Gran % (Auto) 0.900, Neut % (Auto) 78.3 H, Lymph % (Auto) 10.2 L, [place] % (Auto) 10.0, Eos % (Auto) 0.4, Baso % (Auto) 0.2, Absolute Neuts (auto) 10.4 H, Absolute Lymphs (auto) 1.35, Nucleated RBC % 0 11/10/22 08:25: Sodium 128 L, Potassium 5.7 H, Chloride 88 L, Carbon Dioxide 28.0, Anion Gap 12, BUN 126 H*, Creatinine 9.32 H*, Estim Creat Clear Calc 6.52, Est GFR (MDRD) Af Amer 7 L, Est GFR (MDRD) Non-Af 6 L, BUN/Creatinine Ratio 13.5, Glucose 227 H, Calcium 8.7, Troponin I High Sens 17 11/10/22 08:25: Lactic Acid 0.9 11/10/22 08:25: B-Natriuretic Peptide 316.7 H ABG Data ABG results: ABG 11/10/22 11/10/22 08:59 10:17 Specimen Type ART ART Sample Site R Radial R Radial pH 7.28 L 7.29 L Bicarbonate Actual 26.5 H 24.6 Total CO2 28 26 Base Excess 0 -2 O2 Saturation 95 92 L O2 % 45 ABG pCO2 57.0 H 51.3 H ABG pO2 86 72 L Trevon Test Positive Positive O2 Delivery Device Cannula AVAPS Liter Flow 2.0 Tidal Volume 450 Radiology Impression Chest X-Ray 11/10/22 08:55 IMPRESSION: Stable 5.6 cm mass within the right upper lung highly suspicious for malignancy. Cardiomegaly. Electronically Signed: Carmen Crandall MD at 9:10 EDT , Charges/Coding Visit Charges Inpatient E&M: 21083 Init Hosp L3
[2022-11-10 15:28] LABS: Prothrombin Time (Protime)PT. 22.5 SECONDS (11.7-14.9)
[2022-11-10] MEDS: Methylprednisolone Sod Succ 40 MG/ML VIAL IV ×2 (17:25→22:31)
[2022-11-10 17:39] LABS: Bedside Glucose 146 mg/dL (74-106)
[2022-11-10 19:20] LABS: Hepatitis B Surface Antigen Non-Reactive (Nonreactive)
[2022-11-10] MEDS: Insulin Lispro 100 UNIT/ML INSULN.PEN SC (22:31)
[2022-11-10] MEDS: Miconazole Nitrate Cream 1 APPLIC TOPICAL (22:32)
[2022-11-10 22:40] LABS: Bedside Glucose 183 mg/dL (74-106)
[2022-11-10] MEDS: Metoprolol Tartrate 50 MG Tablet PO (23:46)
[2022-11-10] MEDS: Tamsulosin HCl 0.4 MG Capsule PO (23:46)
[2022-11-10] MEDS: Tacrolimus 0.5 MG Capsule PO (23:46)
[2022-11-11] VITALS (15 sets, daily range): BP systolic 108–147; BP diastolic 59–89; PULSE 57–94; RESP 16–20; TEMP 36.5–36.9; O2SAT 89–95
[2022-11-11 05:38] LABS: Absolute Lymphocyte Count 0.24 X10^3/uL (0.83-4.51); Absolute Neutrophil Count 10.3 X10^3/uL (2.0-7.7); Basophil# 0.02 X10^3/uL; Basophil% 0.2 % (0-1); Hemoglobin 11.4 g/dL (13.0-16.5); Lymphocyte # 0.24 X10^3/ul (0.83-4.51); Lymphocyte % 2.2 % (19-41); Mean Corp Hgb Conc 32.6 g/dL (32-36); Mean Corpuscular Hgb 33.4 pg (27.0-32.0); Mean Corpuscular Volume 102.6 fL (80-94); Mean Platelet Vol. 10.3 fl (6.2-12.0); Monocyte# 0.13 X10^3/uL; Monocyte% 1.2 % (0-10); NRBC Flagged by Analyzer 0 % (0-5); Neutrophil % 95.1 % (47-70); POSITIVE DIFFERENTIAL YES; Platelet Count 257 K/mm3 (150-450); RBC Distribution Width CV 14.1 % (11.6-14.6); RBC Distribution Width SD 53.1 fl (35.1-43.9); Red Blood Count 3.41 M/mm3 (4.6-6.2); White Blood Count 10.8 K/mm3 (4.4-11.0)
[2022-11-11 05:41] LABS: Differential Indicated SCAN CRITERIA MET
[2022-11-11 05:54] LABS: International Normalized Ratio 1.8
[2022-11-11 06:15] LABS: ALB/GLOB Ratio 0.7 RATIO (0.9-2.4); AST(SGOT) 10 U/L (15-37); Alanine Aminotransfer ALT/SGPT 21 U/L (16-61); Albumin, Serum 2.8 g/dL (3.2-5.0); Alkaline Phosphatase 86 U/L (45-117); Anion Gap 14 (5-15); BUN 68 mg/dL (7-18); BUN/Creat Ratio 10.4 RATIO (10-20); Calcium,Total 8.2 mg/dL (8.5-10.1); Chloride 93 mmol/L (98-107); Creatinine, Serum 6.53 mg/dL (0.70-1.30); EST Glomerular Filtration Rate 9 mL/min (>60); Est Glom Filt Rate - Afr Amer 11 mL/min (>60); Estimated Creatinine Clearance 9.31 ml/min; Glucose 362 mg/dL (74-106); Potassium 6.1 mmol/L (3.5-5.1); Protein, Total 6.8 g/dL (6.4-8.2); Sodium Level 131 mmol/L (136-145)
[2022-11-11 06:18] LABS: Differential Comment SCANNED
[2022-11-11] MEDS: Insulin Lispro 100 UNIT/ML INSULN.PEN SC ×3 (06:27→21:22)
[2022-11-11] MEDS: Levothyroxine 75 MCG Tablet PO (06:28)
[2022-11-11] MEDS: Methylprednisolone Sod Succ 40 MG/ML VIAL IV ×3 (06:28→21:21)
[2022-11-11] MEDS: 0.9% Saline Lock 10 ML Syringe IV ×3 (06:28→21:22)
[2022-11-11 07:10] LABS: Bedside Glucose 346 mg/dL (74-106)
--- NOTE | 2022-11-11 07:48 | PN.HOSP_ITS ---
Reason for Visit Reason for Visit: Diagnoses Hypo-osmolality and hyponatremia (11/10/22) Hypokalemia (11/10/22) Encephalopathy, unspecified (11/10/22) Pneumonia, unspecified organism (11/10/22) Chronic obstructive pulmonary disease with (acute) exacerbation (11/10/22) Acute and chronic respiratory failure with hypoxia (11/10/22) Acute and chronic respiratory failure with hypercapnia (11/10/22) End stage renal disease (11/10/22) Other nonspecific abnormal finding of lung field (11/10/22) Dependence on renal dialysis (11/10/22) Subjective Subjective Weaned of BiPAP down to room air. He does complain of shortness of breath. Objective Data Objective Data Vital Signs: Vital Signs Temp Pulse Resp BP Pulse Ox O2 Del Method O2 Flow Rate 36.6 C 70 18 119/78 94 Room Air 30 11/11/22 04:00 11/11/22 07:05 11/11/22 07:05 11/11/22 04:00 11/11/22 07:31 11/11/22 07:31 11/10/22 16:40 FiO2 25 11/10/22 22:57 Oxygen Flow Rate (L/min) 30 Oxygen Delivery Method Room Air Weight: 98.5 kg Body Mass Index (BMI) 33.0 Intake & Output: Intake and Output for Last 24 Hours 11/09/22 11/10/22 11/11/22 23:59 23:59 23:59 Intake Total 0 / 0 10 / 10 Output Total 0 / 150 150 / 150 Balance 0 / -150 -140 / -140 Lab / Micro Data Result Diagrams: 11/11/22 05:14 11/11/22 05:14 Labs: Laboratory Results - last 24 hr 11/10/22 08:25: WBC 13.3 H, RBC 3.31 L, Hgb 11.0 L, Hct 33.5 L, MCV 101.2 H, MCH 33.2 H, MCHC 32.8, RDW Std Deviation 51.9 H, RDW Coeff of Kecia 14.0, Plt Count 263, MPV 10.3, Immature Gran % (Auto) 0.900, Neut % (Auto) 78.3 H, Lymph % (Auto) 10.2 L, [place] % (Auto) 10.0, Eos % (Auto) 0.4, Baso % (Auto) 0.2, Absolute Neuts (auto) 10.4 H, Absolute Lymphs (auto) 1.35, Nucleated RBC % 0 11/10/22 08:25: Sodium 128 L, Potassium 5.7 H, Chloride 88 L, Carbon Dioxide 28.0, Anion Gap 12, BUN 126 H*, Creatinine 9.32 H*, Estim Creat Clear Calc 6.52, Est GFR (MDRD) Af Amer 7 L, Est GFR (MDRD) Non-Af 6 L, BUN/Creatinine Ratio 13.5, Glucose 227 H, Calcium 8.7, Troponin I High Sens 17 11/10/22 08:25: Lactic Acid 0.9 11/10/22 08:25: B-Natriuretic Peptide 316.7 H 11/10/22 08:25: Hep Bs Antigen Non-Reactive 11/10/22 15:02: PT 22.5 H, INR 2.0 11/10/22 17:20: POC Glucose 146 H 11/10/22 22:17: POC Glucose 183 H 11/11/22 05:14: WBC 10.8, RBC 3.41 L, Hgb 11.4 L, Hct 35.0 L, MCV 102.6 H, MCH 33.4 H, MCHC 32.6, RDW Std Deviation 53.1 H, RDW Coeff of Kecia 14.1, Plt Count 257, MPV 10.3, Immature Gran % (Auto) 1.300 H, Neut % (Auto) 95.1 H, Lymph % (Auto) 2.2 L, [place] % (Auto) 1.2, Eos % (Auto) 0.0, Baso % (Auto) 0.2, Absolute Neuts (auto) 10.3 H, Absolute Lymphs (auto) 0.24 L, Nucleated RBC % 0, Differential Comment SCANNED 11/11/22 05:14: PT 21.0 H, INR 1.8 11/11/22 05:14: Sodium 131 L, Potassium 6.1 H*, Chloride 93 L, Carbon Dioxide 24.0, Anion Gap 14, BUN 68 H, Creatinine 6.53 H, Estim Creat Clear Calc 9.31, Est GFR (MDRD) Af Amer 11 L, Est GFR (MDRD) Non-Af 9 L, BUN/Creatinine Ratio 10.4, Glucose 362 H, Calcium 8.2 L, Total Bilirubin 0.40, AST 10 L, ALT 21, Alkaline Phosphatase 86, Total Protein 6.8, Albumin 2.8 L, Globulin 4.0, Albumin/Globulin Ratio 0.7 L 11/11/22 06:25: POC Glucose 346 H Micro: Microbiology 11/10/22 23:19 Urine, Clean Catch Legionella Antigen - Final 11/10/22 23:19 Urine, Clean Catch Streptococcus pneumoniae Antigen (M - Final ABG Data ABG results: ABG 11/10/22 11/10/22 08:59 10:17 Specimen Type ART ART Sample Site R Radial R Radial pH 7.28 L 7.29 L Bicarbonate Actual 26.5 H 24.6 Total CO2 28 26 Base Excess 0 -2 O2 Saturation 95 92 L O2 % 45 ABG pCO2 57.0 H 51.3 H ABG pO2 86 72 L Trevon Test Positive Positive O2 Delivery Device Cannula AVAPS Liter Flow 2.0 Tidal Volume 450 Radiography Diagnostic Testing: Radiology Impression Chest X-Ray 11/10/22 08:55 IMPRESSION: Stable 5.6 cm mass within the right upper lung highly suspicious for malignancy. Cardiomegaly. Electronically Signed: Carmen Crandall MD at 9:10 EDT , Physical Exam Const alert and no apparent distress HEENT head/scalp atraumatic and moist oral mucous membranes Resp normal respiratory effort, no retractions, no use of accessory muscles and clear to auscultation bilaterally Cardio regular rate, regular rhythm, S1 normal heart sound and S2 normal heart sound GI normal to inspection, nondistended, normoactive bowel sounds, soft to palpation and non-tender Extremity normal to inspection Psych affect normal Assessment & Plan Assessment/Plan (1) Acute on chronic respiratory failure with hypoxia and hypercapnia: PLAN: ABG shows respiratory acidosis. PCO2 was 51.3 and PO2 was 72. Placed on BiPAP in the emergency room and will continue for now. Likely multifactorial: Due to COPD, lung mass and pneumonia Resolved, now on room air. (2) COPD with acute exacerbation: PLAN: Appears less likely given dramatic response. Will treat empirically with bronchodilators as well as methylprednisolone. Improved. Resume prednisone 11/12 (3) Pneumonia: PLAN: Noted on a CAT scan from the Strep and legionella antigens negative Pulmonary toilet Antibiotics with ceftriaxone and azithromycin. Hold levofloxacin for now. (4) Lung mass: PLAN: Noted on CAT scan. Not present on chest x-ray images from May Seen by pulm, per note, plan for outpt CT-guided biopsy to be performed on 11/20. Hold warfarin starting 11/15. (5) Hypokalemia: PLAN: Ongoing Had HD 11/10 and again today Monitor (6) Hyponatremia: PLAN: Improved Continue to monitor (7) Encephalopathy acute: PLAN: Resolved May be multifactorial due to the respiratory failure but also component of medications, including gabapentin, which will be held. Hold potentiating agents. Cannot rule out uremia GABAPENTIN SHOULD NOT BE RESUMED UPON DISCHARGE (8) End stage renal disease: PLAN: Nephrology consulted HD on 11/10 and PLAN: Plan Chronic conditions * Diabetes mellitus type 2: Insulin-dependent.? Continue with basal and sliding scale insulin. Uncontrolled. Exacerbated * Hypothyroidism: Continue levothyroxine * Peptic ulcer disease: Continue PPI * A-fib: Continue with diltiazem and metoprolol. Anticoagulated with warfarin. Check INR * Liver transplant: 2006. Continue with steroids and tacrolimus. Continue with Bactrim. * Heart failure preserved ejection fraction: Chronic. EF 55% from 2D echocard iogram on June 10, 2022. VTE prophylaxis: Not indicated as patient is actively taking warfarin. Charges/Coding Visit Charges Inpatient E&M: 43712 Subs Hosp L2
--- NOTE | 2022-11-11 08:22 | PCM.PN.INT ---
Assessment & Plan Assessment/Plan (1) Acute on chronic respiratory failure with hypoxia and hypercapnia: (2) Mass of right lung: PLAN: Plan RECOMMENDATIONS: 1. Dialysis timing per nephrology 2. BiPAP with sleep only 3. Arrange for outpatient CT-guided biopsy 4. Walking oximetry prior to discharge. Keep oxygen saturations between 90 and 96% to avoid CO2 retention 5. Potential CT-guided biopsy as an outpatient IMPRESSIONS: 1. Lung mass Review of outpatient chest x-ray shows a possibility of this being present in May, but not present in 2020. Patient is immunosuppressed, so fungal ball versus malignancy would be a concern. Likely okay to transition to a 5-day burst. Patient does also have significant uremia. Patient is agreeable to a CT-guided biopsy. This can be completed as an outpatient. Order has been placed. Appearance on CT scan is not really consistent with a pulmonary abscess, but fungal ball is possible. No central clearing has been noted at this time. There is likely no emergent issue to proceed with biopsy as an inpatient 2. Metabolic encephalopathy Improved. Patient with significant acidosis on presentation. Some concern the patient may not be able to tolerate metabolic acidosis associated with renal failure. Patient should receive hemodialysis and see if things improve. Possible BiPAP breaks tomorrow. Would get a blood gas if mental status continues to worsen. Unable to confirm CODE STATUS, so cannot exclude the need for intubation if decision-maker cannot be found. 3. Acute on chronic hypercarbic respiratory failure secondary to COPD with possible exacerbation Improved. Patient currently being treated empirically with bronchodilators and steroids. Anticipate a 5-day burst of steroids likely sufficient. Patient has a sputum culture, ceftriaxone and azithromycin currently ordered. Patient does have some hyponatremia, so paraneoplastic syndrome would be a possibility. Patient should continue with BiPAP with sleep given baseline OLVIN. Unclear if this is related to a COPD exacerbation versus failure to compensate for none anion gap metabolic acidosis 4. End-stage renal disease Nephrology has been consulted. Patient was significant uremia at this time. Recommend completing dialysis with volume removal if possible. Defer to nephrology on whether patient needs repeat dialysis today 5. Hyponatremia/hypokalemia/diabetes mellitus/obesity/advanced age/hypertension/history of transplant Complicates care, management, recovery and prognosis. We will need to watch blood sugars closely as patient is insulin-dependent at baseline. Patient does have a history of A-fib and currently anticoagulated with warfarin. INR is elevated. Patient has been maintained on tacrolimus. Patient may benefit from podiatry consult given foot examination, but defer to primary service. Subjective Subjective Patient did well overnight. Patient has little recollection of yesterday. Patient is much more appropriate today. Patient does state that he would want to know what this is. Patient is open to a biopsy after knowing the risks, benefits and alternatives. Objective Data Objective Data Vital Signs: Vital Signs Temp Pulse Resp BP Pulse Ox O2 Del Method O2 Flow Rate 36.6 C 70 18 119/78 94 Room Air 30 11/11/22 04:00 11/11/22 07:05 11/11/22 07:05 11/11/22 04:00 11/11/22 07:31 11/11/22 07:31 11/10/22 16:40 FiO2 25 11/10/22 22:57 Oxygen Flow Rate (L/min) 30 Oxygen Delivery Method Room Air Weight: 98.5 kg Body Mass Index (BMI) 33.0 Intake & Output: Intake and Output for Last 24 Hours 11/09/22 11/10/22 11/11/22 23:59 23:59 23:59 Intake Total 0 / 0 10 / 10 Output Total 0 / 150 150 / 150 Balance 0 / -150 -140 / -140 Lab / Micro Data Attestation: I reviewed the patient's lab results. Result Diagrams: 11/11/22 05:14 11/11/22 05:14 Labs: Laboratory Results - last 24 hr 11/10/22 08:25: WBC 13.3 H, RBC 3.31 L, Hgb 11.0 L, Hct 33.5 L, MCV 101.2 H, MCH 33.2 H, MCHC 32.8, RDW Std Deviation 51.9 H, RDW Coeff of Kecia 14.0, Plt Count 263, MPV 10.3, Immature Gran % (Auto) 0.900, Neut % (Auto) 78.3 H, Lymph % (Auto) 10.2 L, [place] % (Auto) 10.0, Eos % (Auto) 0.4, Baso % (Auto) 0.2, Absolute Neuts (auto) 10.4 H, Absolute Lymphs (auto) 1.35, Nucleated RBC % 0 11/10/22 08:25: Sodium 128 L, Potassium 5.7 H, Chloride 88 L, Carbon Dioxide 28.0, Anion Gap 12, BUN 126 H*, Creatinine 9.32 H*, Estim Creat Clear Calc 6.52, Est GFR (MDRD) Af Amer 7 L, Est GFR (MDRD) Non-Af 6 L, BUN/Creatinine Ratio 13.5, Glucose 227 H, Calcium 8.7, Troponin I High Sens 17 11/10/22 08:25: Lactic Acid 0.9 11/10/22 08:25: B-Natriuretic Peptide 316.7 H 11/10/22 08:25: Hep Bs Antigen Non-Reactive 11/10/22 15:02: PT 22.5 H, INR 2.0 11/10/22 17:20: POC Glucose 146 H 11/10/22 22:17: POC Glucose 183 H 11/11/22 05:14: WBC 10.8, RBC 3.41 L, Hgb 11.4 L, Hct 35.0 L, MCV 102.6 H, MCH 33.4 H, MCHC 32.6, RDW Std Deviation 53.1 H, RDW Coeff of Kecia 14.1, Plt Count 257, MPV 10.3, Immature Gran % (Auto) 1.300 H, Neut % (Auto) 95.1 H, Lymph % (Auto) 2.2 L, [place] % (Auto) 1.2, Eos % (Auto) 0.0, Baso % (Auto) 0.2, Absolute Neuts (auto) 10.3 H, Absolute Lymphs (auto) 0.24 L, Nucleated RBC % 0, Differential Comment SCANNED 11/11/22 05:14: PT 21.0 H, INR 1.8 11/11/22 05:14: Sodium 131 L, Potassium 6.1 H*, Chloride 93 L, Carbon Dioxide 24.0, Anion Gap 14, BUN 68 H, Creatinine 6.53 H, Estim Creat Clear Calc 9.31, Est GFR (MDRD) Af Amer 11 L, Est GFR (MDRD) Non-Af 9 L, BUN/Creatinine Ratio 10.4, Glucose 362 H, Calcium 8.2 L, Total Bilirubin 0.40, AST 10 L, ALT 21, Alkaline Phosphatase 86, Total Protein 6.8, Albumin 2.8 L, Globulin 4.0, Albumin/Globulin Ratio 0.7 L 11/11/22 06:25: POC Glucose 346 H Micro: Microbiology 11/10/22 23:19 Urine, Clean Catch Legionella Antigen - Final 11/10/22 23:19 Urine, Clean Catch Streptococcus pneumoniae Antigen (M - Final ABG Data ABG results: ABG 11/10/22 11/10/22 08:59 10:17 Specimen Type ART ART Sample Site R Radial R Radial pH 7.28 L 7.29 L Bicarbonate Actual 26.5 H 24.6 Total CO2 28 26 Base Excess 0 -2 O2 Saturation 95 92 L O2 % 45 ABG pCO2 57.0 H 51.3 H ABG pO2 86 72 L Trevon Test Positive Positive O2 Delivery Device Cannula AVAPS Liter Flow 2.0 Tidal Volume 450 Radiography Diagnostic Testing: Radiology Impression Chest X-Ray 11/10/22 08:55 IMPRESSION: Stable 5.6 cm mass within the right upper lung highly suspicious for malignancy. Cardiomegaly. Electronically Signed: Carmen Crandall MD at 9:10 EDT , Physical Exam Const oriented x3 and no apparent distress Constitutional Narrative: Sitting in a chair on room air with no conversational dyspnea. Obese. General Appearance: cooperative HEENT normocephalic and head/scalp atraumatic Eyes PERRL, EOMs intact bilaterally and conjunctivae normal Neck full ROM Neck Narrative: Unable to assess for JVD secondary to body habitus Resp normal respiratory effort and no retractions Auscultation: Negative for rales, rhonchi or wheezes Cardio regular rate, regular rhythm, S1 normal heart sound, S2 normal heart sound, no murmurs, no rub and no gallops GI normal to inspection, nondistended, normoactive bowel sounds, soft to palpation, non-tender and non-distended Extremity Extremity Narrative: Significant onychomycosis with superficial ulcerations and granulation tissue Skin Skin Narrative: Dermal atrophy noted Neuro moves all extremities Psych Mood & Affect: flat affect Charges/Coding Visit Charges Inpatient E&M: 62367 Subs Hosp L2
--- NOTE | 2022-11-11 08:59 | CASEMGMT ---
Discharge Planning Message sent to [facility] via [employer] asking if pre-cert will be needed for patients return. Melita Son
--- NOTE | 2022-11-11 09:05 | CASEMGMT ---
Discharge Planning Per CC, patient is a GERALDO bedhold and will not require a pre-cert. SW notified. Melita Son
--- NOTE | 2022-11-11 09:09 | CASEMGMT ---
Discharge Planning Per CC, patient is a GERALDO behold and no precert is needed, SW notified. Melita Son
--- NOTE | 2022-11-11 10:02 | CASEMGMT ---
ALE called patient's ex-, Elaine, who is also his emergency contact. ALE confirmed the plan is for patient to return to [facility] at discharge. Arlette MELENDREZ
[2022-11-11] MEDS: Aspirin E.C. 81 MG Tablet PO (10:08)
[2022-11-11] MEDS: Fluticasone 0.05% 1 SPRAY NASAL.SRY 2 SPRAY NASAL (10:08)
[2022-11-11] MEDS: dilTIAZem CD 120 MG Capsule PO (10:08)
[2022-11-11] MEDS: Metoprolol Tartrate 50 MG Tablet PO (10:09)
[2022-11-11] MEDS: Tacrolimus 0.5 MG Capsule PO ×2 (10:09→21:21)
[2022-11-11] MEDS: Furosemide 20 MG Tablet PO (10:09)
[2022-11-11] MEDS: Tamsulosin HCl 0.4 MG Capsule PO ×2 (10:09→21:21)
[2022-11-11] MEDS: Calcitriol 0.25 MCG Capsule PO (10:09)
[2022-11-11] MEDS: Ipratropium/Albuterol Sulfate 3 ML AMPUL.NEB INHALATION (11:30)
--- NOTE | 2022-11-11 12:09 | PN.RENAL_ITS ---
Subjective Subjective More alert and awake today. Mental status is back to normal. Says he is somewhat short of breath. Seen on dialysis today. Pulmonary note reviewed. Scheduled for biopsy. Potassium is high again today, that is slightly associated hyperglycemia but increase in potassium would be somewhat surprising. Objective Data Objective Data Vital Signs: Vital Signs Temp Pulse Resp BP Pulse Ox O2 Del Method O2 Flow Rate 98.3 F 91 18 147/69 H 94 Room Air 30 11/11/22 10:04 11/11/22 10:09 11/11/22 10:04 11/11/22 10:04 11/11/22 10:04 11/11/22 10:04 11/10/22 16:40 FiO2 25 11/10/22 22:57 Oxygen Flow Rate (L/min) 30 Oxygen Delivery Method Room Air Weight: 98.5 kg Body Mass Index (BMI) 33.0 Intake & Output: Intake and Output for Last 24 Hours 11/09/22 11/10/22 11/11/22 23:59 23:59 23:59 Intake Total 0 / 0 10 10 Output Total 0 / 150 150 / 150 Balance 0 / -150 -140 / -140 Lab / Micro Data Result Diagrams: 11/11/22 05:14 11/11/22 05:14 Labs: Laboratory Results - last 24 hr 11/10/22 08:25: Hep Bs Antigen Non-Reactive 11/10/22 15:02: PT 22.5 H, INR 2.0 11/10/22 17:20: POC Glucose 146 H 11/10/22 22:17: POC Glucose 183 H 11/11/22 05:14: WBC 10.8, RBC 3.41 L, Hgb 11.4 L, Hct 35.0 L, MCV 102.6 H, MCH 33.4 H, MCHC 32.6, RDW Std Deviation 53.1 H, RDW Coeff of Kecia 14.1, Plt Count 257, MPV 10.3, Immature Gran % (Auto) 1.300 H, Neut % (Auto) 95.1 H, Lymph % (Auto) 2.2 L, [place] % (Auto) 1.2, Eos % (Auto) 0.0, Baso % (Auto) 0.2, Absolute Neuts (auto) 10.3 H, Absolute Lymphs (auto) 0.24 L, Nucleated RBC % 0, Differential Comment SCANNED 11/11/22 05:14: PT 21.0 H, INR 1.8 11/11/22 05:14: Sodium 131 L, Potassium 6.1 H*, Chloride 93 L, Carbon Dioxide 24.0, Anion Gap 14, BUN 68 H, Creatinine 6.53 H, Estim Creat Clear Calc 9.31, Est GFR (MDRD) Af Amer 11 L, Est GFR (MDRD) Non-Af 9 L, BUN/Creatinine Ratio 10.4, Glucose 362 H, Calcium 8.2 L, Total Bilirubin 0.40, AST 10 L, ALT 21, Alkaline Phosphatase 86, Total Protein 6.8, Albumin 2.8 L, Globulin 4.0, Albumin/Globulin Ratio 0.7 L 11/11/22 06:25: POC Glucose 346 H Micro: Microbiology 11/10/22 23:19 Urine, Clean Catch Legionella Antigen - Final 11/10/22 23:19 Urine, Clean Catch Streptococcus pneumoniae Antigen (M - Final Physical Exam Narrative Sleepy no obvious distress no pallor no icterus no JVD s1s2 no murmurs lungs clear abdomen soft no organomegaly no edema Assessment & Plan Assessment/Plan (1) ESRD on hemodialysis: PLAN: ESRD, on hemodialysis. S/p dialysis yesterday, BUN and creatinine did improve with dialysis however potassium is high again. Scheduled for dialysis today again. I will draw a pre and post BUN. Fluid removal as tolerated. I will also use a 1K bath for the first 1 and half hour due to recurrent hyperkalemia. Discussed with family at bedside. New onset lung mass. He was here about [address] chest shows lung mass. He is on immunosuppression with tacrolimus for history of liver transplant. If this is a confirmed malignancy, this probably needs to be changed to sirolimus. Biopsy scheduled as outpatient. Discussed with hospitalist
[2022-11-11 12:32] LABS: BUN 90 mg/dL (7-18)
--- NOTE | 2022-11-11 14:58 | DIALYSIS ---
Hemodialysis tx completed x 3 hours splitting tx between 1K and 2K baths. Pt tolerated tx fair, anxious throughout tx, vitals stable. Fluid removed 2,000ml using crit-line monitor. Pre and post tx BUN drawn and sent. Verbal report given to [facility] L[facility] post tx.
--- NOTE | 2022-11-11 15:37 | SP.MBSS_ITS ---
Modified Barium Swallow - Patient Information Study Date: 11/11/22 Study Time: 14:30 Direct Billable Minutes: 120 Total Minutes procedure & reportin Diagnosis: pneumonia J18.9 Referring Physician: Derick Salgado Reason for Referral: Objectively assess swallow function, risk for aspiration, and determine recommendations for least restrictive diet textures and compensatory strategies to improve safety of swallow. Medical History: Sukhdev Moise is a 76-year-old male with extensive PMH including achalasia (per patient), alcohol abuse, acute on chronic kidney injury, alcohol withdrawal, COPD, DM, former smoker, CHF, GERD, IBS, HTN, hypoxia, macular degeneration, nausea & vomiting (SEE EMR for full PMH). He presented to [facility] ED from [facility] secondary to increasing weakness, shortness of breath, and falls. Patient was placed on BiPAP in the emergency room. Patient had chest x-ray that showed no acute infiltrates other than the right upper lobe mass that was noted on imaging from the 15. He was admitted for management of hypercapnic respiratory failure. He passed RN dysphagia screen, but did present with coughing after eating applesauce. He was referred for ST consult to assess concerns for swallowing difficulty. Current Diet Ordered: Minced and Moist / Thin Liquids Dentition: WNL Respiratory Status: Oxygenating on 2L/M nasal cannula - Penetration-Aspiration Scale Penetration-Aspiration Scale: OBJECTIVE ASSESSMENT OF SWALLOW FUNCTION (QUANTITATIVE ? PER TRIAL): PENETRATION / ASPIRATION SCALE (BROOKS): 1 = does not enter airway 2 = enters airway/above vocal folds/ejected 3 = enters airway/above vocal folds/not ejected 4 = enters airway/contacts vocal folds/ejected 5 = enters airway/contacts vocal folds/not ejected 6 = enters airway/below vocal folds/ejected 7 = enters airway/below vocal folds/not ejected despite effort 8 = enters airway/below vocal folds/no effort VIDEOFLOROSCOPIC SCALE SCORE (BROOKS): Grade I = aspiration of material that has penetrated into the laryngeal vestibule, intact cough reflex Grade II = aspiration < 10 % of the bolus, intact cough reflex Grade III = aspiration of < 10 % of the bolus, reduced cough reflex or aspiration of > 10 % of the bolus, intact cough reflex Grade IV = aspiration of > 10 % of the bolus, reduced cough reflex - Penetration-Aspiration Scale Score Thin Liquid via small single sip from cup Result: 1= does not enter airway Thin Liquid via small single sip from cup Trial 2 Result: 2= enter airway/above vocal folds/ejected [place] Thick Liquid via small single sip from cup Result: 1= does not enter airway Honey Thick Liquid via small single sip from cup Result: 1= does not enter airway Pudding Result: 1= does not enter airway Thin Liquid via small single sip from cup Trial 3 Result: 1= does not enter airway Cookie Result: 1= does not enter airway - Oral Phase Labial Seal: No Labial Escape Tongue Control During Bolus Hold: Posterior escape of less than half of bolus Bolus Preparation/Mastication: Slow prolonged chewing/mashing with complete recollection Bolus Transport/Lingual Motion: Delayed initiation of tongue motion Oral Residue: Trace residue lining oral structures - Pharyngeal Phase Initiation of Pharyngeal Swallow: Bolus head in valleculae Soft Palate Elevation: No bolus between soft palate and pharyngeal wall Laryngeal Elevation: Min superior movement thyroid cart/min apprx aryte cart- epig petiole Anterior Hyoid Excursion: Partial anterior movement Epiglottic Movement: Partial inversion Laryngeal Vestibule Closure at Height of Swallow: Incomplete; narrow column of air/contrast in laryngeal vestibule Pharyngeal Stripping Wave: Present - diminished Pharyngoesophageal Segment Opening: Complete distension and complete duration; no obstruction of flow Tongue Base Retraction: Trace column of contrast between tongue base & post. pharyngeal wall Pharyngeal Residue: Trace residue within or on pharyngeal structures - Esophageal Phase Esophageal Clearance: Minimal to no esophageal clearance - w/ pudding - Treatment Strategies Effects of treatment strategies attemped:: liquid wash somewhat effective to clear esophageal retention - Diagnosis/Impression Diagnosis: mild pharyngoesophageal dysphagia (R13.14) Impression: Oral phase primarily marked by... - delayed initiation of tongue motion - decreased bolus control resulting in posterior loss of bolus to the vallecula - trace oral residue Pharyngeal phase primarily marked by... - decreased airway closure during deglutition attributed to reduced laryngeal elevation and reduced anterior hyoid excursion - laryngeal penetration seen w/ thin liquid by cup that was fully ejected and thin. No aspiration seen throughout study. - trace pharyngeal residue - delayed swallow onset Esophageal phase primarily marked by... - little to no clearance of pudding. Somewhat improved w/ use of liquid wash. - timely clearance of cookie Recommending GI consult d/t esophageal retention and hx of achalasia. Hospitalist notified of consult. - Recommendations Diet: Mechanical Soft Textures, Thin Liquids Compensatory Strategies: Small Bites, Small Sips, Sitting upright, Remain s itting upright for 30 minutes after PO intake, Minimize/decrease distractions Recommend Repeat Modified Barium Swallow: TBD Need for Skilled Speech Therapy Services: Yes Comment: Will recommend the patient for dysphagia therapy to address deficits in oropharyngeal swallow function. Would consider the patient for oropharyngeal strengthening to improve lingual coordination, laryngeal elevation and hyoid excursion. The patient would benefit from thorough education regarding diet recommendations and recommended compensatory strategies. Recommended Referrals: GI Consult Education Completed: 1. Described result of evaluation., 2. Pt understands evaluation & agrees with goals and treatment plan. - Status Active ST Patient: Active - Contact Information [facility] Speech Therapy:: Rola Bailey M.A. CCC-AVIATION [employer] OPERATOR Speech-Language Pathologist [facility] [address] [place] [address] [email or web address] [phone] 11/11/22 16:00
--- NOTE | 2022-11-11 16:34 | CASEMGMT ---
Discharge Planning Updates sent to [facility] via [employer]. Melita Son
[2022-11-11 16:40] LABS: BUN 32 mg/dL (7-18)
[2022-11-11] MEDS: Insulin Glargine-YFGN 100 UNIT/ML Pen 50 UNIT SC (16:56)
[2022-11-11 17:20] LABS: Bedside Glucose 366 mg/dL (74-106)
--- NOTE | 2022-11-11 19:55 | CPS ---
Pt is confused and agitated at present time.
[2022-11-11] MEDS: Miconazole Nitrate Cream 1 APPLIC TOPICAL (21:21)
[2022-11-11 23:00] LABS: Bedside Glucose 220 mg/dL (74-106)
[2022-11-11] MEDS: QUEtiapine 25 MG Tablet PO (23:07)
[2022-11-12] VITALS (9 sets, daily range): BP systolic 98–107; BP diastolic 60–67; PULSE 69–96; RESP 12–18; TEMP 36.6–36.8; O2SAT 92–96
--- NOTE | 2022-11-12 04:57 | CPS ---
pt did not wear bipap last night, was confused and agitated.
[2022-11-12] MEDS: 0.9% Saline Lock 10 ML Syringe IV (06:51)
[2022-11-12] MEDS: Levothyroxine 75 MCG Tablet PO (06:51)
[2022-11-12 07:16] LABS: Bedside Glucose 103 mg/dL (74-106)
--- NOTE | 2022-11-12 08:06 | PN.HOSP_ITS ---
Reason for Visit Reason for Visit: Diagnoses Hypo-osmolality and hyponatremia (11/10/22) Hypokalemia (11/10/22) Encephalopathy, unspecified (11/10/22) Pneumonia, unspecified organism (11/10/22) Chronic obstructive pulmonary disease with (acute) exacerbation (11/10/22) Acute and chronic respiratory failure with hypoxia (11/10/22) Acute and chronic respiratory failure with hypercapnia (11/10/22) End stage renal disease (11/10/22) Other nonspecific abnormal finding of lung field (11/10/22) Dependence on renal dialysis (11/10/22) Subjective Subjective Pt reports feeling better overall, did have minimal to no esophageal clearance so GI consult was recommended especially with his history of achalasia. Initially patient reported he was having problems, discussed risk and benefits of staying for inpatient evaluation versus outpatient with him and ex- at bedside and initially he wanted to leave ultimately agreeable. It was noted that patient had some food bits and liquid regurgitated onto his food tray and said that it did not bother him extent like that much anyway. Denies a sticking feeling in his throat but sometimes he reports sometimes he will get pain enteral happen with eating but it is random intervals sometimes not for months and sometimes in a row Objective Data Objective Data Vital Signs: Vital Signs Temp Pulse Resp BP Pulse Ox O2 Del Method O2 Flow Rate 98.2 F 85 18 107/60 95 Nasal Cannula 2 11/12/22 06:54 11/12/22 06:54 11/12/22 06:54 11/12/22 06:54 11/12/22 06:54 11/12/22 07:49 11/12/22 07:49 FiO2 25 11/10/22 22:57 Oxygen Flow Rate (L/min) 2 Oxygen Delivery Method Nasal Cannula Weight: 98.5 kg Body Mass Index (BMI) 33.0 Intake & Output: Intake and Output for Last 24 Hours 11/10/22 11/11/22 11/12/22 23:59 23:59 23:59 Intake Total 0 / 0 730 / 730 Output Total 0 / 150 150 / 150 0 / 0 Balance 0 / -150 580 / 580 0 / 0 Lab / Micro Data Result Diagrams: 11/11/22 05:14 11/12/22 06:55 Labs: Laboratory Results - last 24 hr 11/11/22 11:35: BUN 90 H 11/11/22 14:45: BUN 32 H 11/11/22 16:53: POC Glucose 366 H 11/11/22 21:18: POC Glucose 220 H 11/12/22 06:49: POC Glucose 103 Micro: Microbiology 11/10/22 11:13 Blood Culture (Wb) - Anticubital Right Blood Culture - Preliminary No growth in 48 hours. 11/10/22 08:25 Blood Culture (Wb) - Anticubital Right Blood Culture - Preliminary No growth in 48 hours. 11/10/22 23:19 Urine, Clean Catch Legionella Antigen - Final 11/10/22 23:19 Urine, Clean Catch Streptococcus pneumoniae Antigen (M - Final Physical Exam Narrative General: Alert, overall answers questions appropriately though slightly forgetful and somewhat limited with health literacy, no apparent distress HEENT: Atraumatic, normocephalic, had some white plaques on side of tongue and mouth Eyes: Anicteric, normal conjunctiva, extraocular movements grossly intact Neck: Supple Respiratory: Somewhat decreased at the bases normal respiratory effort Cardiovascular: Regular rate and rhythm GI: Soft, nontender, nondistended Extremities: No edema Musculoskeletal: Moving all extremities Neuro: No overt focal neurological deficits Skin: Chronic skin changes on bilateral lower extremities, poor toenail hygiene Psych: Irritable but overall cooperative Assessment & Plan Assessment/Plan (1) Acute on chronic respiratory failure with hypoxia and hypercapnia: (2) COPD with acute exacerbation: (3) Pneumonia: (4) Lung mass: (5) Hyponatremia: (6) End stage renal disease: PLAN: Plan #Esophageal dysmotility/achalasia -Seen by speech therapy and had little to no esophageal motility when swallowing pudding with only some clearance after swallowing liquid and barium swallow. They recommended GI consult -GI consult placed -Patient initially adamant on leaving and did not want to stay for inpatient evaluation however discussed risks and benefits and patient also had regurgitated food and liquid on his tray leading to higher suspicion that he n eeds evaluation prior to discharge -We will make n.p.o. at midnight #Acute on chronic respiratory failure with hypoxia and hypercapnia secondary to acute exacerbation of COPD + PNA-now resolved -On admission ABG showed PCO2 of 51.3 with a PaO2 of 72 -He was placed on BiPAP in the ED and improved -Pulm following -Suspect 2/2 PNA -Was initially concern for a COPD and was started on bronchodilators and steroids, also had possible PNA seen on recent CT scan, on rocephin and azithro -11/12: Resolved, now on room air #Right upper lobe lung mass -Seen on CT scan 11/03 -Has outpatient biopsy scheduled 11/20, will need to hold anticoagulation 5 days prior -Follow-up with pulm outpatient #End-stage renal disease on HD -Nephrology following, continue management/dialysis per nephro #Acute encephalopathy?multifactorial -Due to acute hypoxia and hypercapnia with additional toxic component of gabapentin suspected -Continue to hold gabapentin #Diabetes mellitus type 2: Insulin-dependent.? Continue with basal and sliding scale insulin. Uncontrolled #hyponatremia: Chronic, at or higher than baseline presently #Hypothyroidism: Continue levothyroxine #peptic ulcer disease: Continue PPI #A-fib: Continue with diltiazem and metoprolol.? Anticoagulated with warfarin.? Check INR #Liver transplant: 2006.? Continue with steroids and tacrolimus.? Continue with Bactrim. #Heart failure preserved ejection fraction: Chronic.? EF 55% from 2D echocardiogram on June 10, 2022. #DVT ppx: SCDs as Coumadin not therapeutic at this time Celena Barber MD Time spent in the patient's overall evaluation,decision-making process, review of diagnostic data, adjustment of management, discussion with other providers, nursing nursing and ancillary staff involved in patient's care documentation, 30 Minutes Charges/Coding Visit Charges Inpatient E&M: 30631 Subs Hosp L2
[2022-11-12 08:15] LABS: Anion Gap 10 (5-15); BUN 55 mg/dL (7-18); BUN/Creat Ratio 10.3 RATIO (10-20); Calcium,Total 9.2 mg/dL (8.5-10.1); Chloride 96 mmol/L (98-107); Creatinine, Serum 5.33 mg/dL (0.70-1.30); EST Glomerular Filtration Rate 11 mL/min (>60); Est Glom Filt Rate - Afr Amer 14 mL/min (>60); Estimated Creatinine Clearance 11.41 ml/min; Glucose 97 mg/dL (74-106); Potassium 4.3 mmol/L (3.5-5.1); Sodium Level 134 mmol/L (136-145)
--- NOTE | 2022-11-12 09:44 | CASEMGMT ---
Denisa assisting with discharge planning. Patient updates uploaded and sent to [facility] via [employer]. Andrew Galloway, [employer] BUSINESS ADMINISTRATOR, [employer] SALES REPRESENTATIVE
--- NOTE | 2022-11-12 10:05 | PN.CC_ITS ---
Assessment & Plan Assessment/Plan (1) Acute on chronic respiratory failure with hypoxia and hypercapnia: (2) Mass of right lung: PLAN: Plan RECOMMENDATIONS: 1. Dialysis timing per nephrology 2. BiPAP with sleep only 3. CT-guided biopsy scheduled at [facility] on November 20. Coumadin will need held 4. Walking oximetry prior to discharge. Keep oxygen saturations between 90 and 96% to avoid CO2 retention 5. Okay to discharge from a pulmonary perspective IMPRESSIONS: 1. Lung mass Review of outpatient chest x-ray shows a possibility of this being present in May, but not present in 2020. Patient is immunosuppressed, so fungal ball versus malignancy would be a concern. Likely okay to transition to a 5-day burst. Patient does also have significant uremia. Patient is agreeable to a CT-guided biopsy. This has been arranged as an outpatient. Patient should follow-up in our office following biopsy appearance on CT scan is not really consistent with a pulmonary abscess, but fungal ball is possible. No central clearing has been noted at this time. There is likely no emergent issue to pr oceed with biopsy as an inpatient 2. Metabolic encephalopathy Resolved. Patient with significant acidosis on presentation. Some concern the patient may not be able to tolerate metabolic acidosis associated with renal failure. Patient should receive hemodialysis and see if things improve. BiPAP with sleep. 3. Acute on chronic hypercarbic respiratory failure secondary to COPD with possible exacerbation Resolved. Patient currently being treated empirically with bronchodilators and steroids. Anticipate a 5-day burst of steroids likely sufficient. Patient has a sputum culture, ceftriaxone and azithromycin currently ordered. Patient does have some hyponatremia, so paraneoplastic syndrome would be a possibility. Patient should continue with BiPAP with sleep given baseline OLVIN. Unclear if this is related to a COPD exacerbation versus failure to compensate for none anion gap metabolic acidosis 4. End-stage renal disease Nephrology has been consulted. Dialysis today. Patient was significant uremia at this time. 5. Hyponatremia/hypokalemia/diabetes mellitus/obesity/advanced age/hypertension/history of transplant Complicates care, management, recovery and prognosis. We will need to watch blood sugars closely as patient is insulin-dependent at baseline. Patient does have a history of A-fib and currently anticoagulated with warfarin. INR is elevated. Patient has been maintained on tacrolimus. Patient may benefit from podiatry consult given foot examination, but defer to primary service. Subjective Subjective Patient did well overnight. No acute issues were reported. Patient did have a swallow study yesterday showing decreased esophageal motility. Patient does hav e a cough that is relatively nonproductive. Objective Data Objective Data Preparing for dialysis during my evaluation. Vital Signs: Vital Signs Temp Pulse Resp BP Pulse Ox O2 Del Method O2 Flow Rate 36.8 C 85 18 107/60 95 Nasal Cannula 2 11/12/22 06:54 11/12/22 06:54 11/12/22 06:54 11/12/22 06:54 11/12/22 06:54 11/12/22 07:49 11/12/22 07:49 FiO2 25 11/10/22 22:57 Oxygen Flow Rate (L/min) 2 Oxygen Delivery Method Nasal Cannula Weight: 98.5 kg Body Mass Index (BMI) 33.0 Intake & Output: Intake and Output for Last 24 Hours 11/10/22 11/11/22 11/12/22 23:59 23:59 23:59 Intake Total 0 / 0 730 / 730 Output Total 0 / 150 150 / 150 0 / 0 Balance 0 / -150 580 / 580 0 / 0 Lab / Micro Data Attestation: I reviewed the patient's lab results. Result Diagrams: 11/11/22 05:14 11/12/22 06:55 Labs: Laboratory Results - last 24 hr 11/11/22 11:35: BUN 90 H 11/11/22 14:45: BUN 32 H 11/11/22 16:53: POC Glucose 366 H 11/11/22 21:18: POC Glucose 220 H 11/12/22 06:49: POC Glucose 103 11/12/22 06:55: Sodium 134 L, Potassium 4.3, Chloride 96 L, Carbon Dioxide 28.0, Anion Gap 10, BUN 55 H, Creatinine 5.33 H, Estim Creat Clear Calc 11.41, Est GFR (MDRD) Af Amer 14 L, Est GFR (MDRD) Non-Af 11 L, BUN/Creatinine Ratio 10.3, Glucose 97, Calcium 9.2 Micro: Microbiology 11/10/22 11:13 Blood Culture (Wb) - Anticubital Right Blood Culture - Preliminary No growth in 48 hours. 11/10/22 08:25 Blood Culture (Wb) - Anticubital Right Blood Culture - Preliminary No growth in 48 hours. 11/10/22 23:19 Urine, Clean Catch Legionella Antigen - Final 11/10/22 23:19 Urine, Clean Catch Streptococcus pneumoniae Antigen (M - Final Physical Exam Const oriented x3 and no apparent distress Constitutional Narrative: Sitting in bed on 2 L nasal cannula with no conversational dyspnea. Obese. General Appearance: cooperative HEENT normocephalic and head/scalp atraumatic Eyes PERRL, EOMs intact bilaterally and conjunctivae normal Neck full ROM Neck Narrative: Unable to assess for JVD secondary to body habitus Resp normal respiratory effort and no retractions Auscultation: Negative for rales, rhonchi or wheezes Cardio regular rate, regular rhythm, S1 normal heart sound, S2 normal heart sound, no murmurs, no rub and no gallops GI normal to inspection, nondistended, normoactive bowel sounds, soft to palpation, non-tender and non-distended Extremity Extremity Narrative: Significant onychomycosis with superficial ulcerations and granulation tissue Skin Skin Narrative: Dermal atrophy noted Neuro moves all extremities Psych Mood & Affect: flat affect Charges/Coding Visit Charges Inpatient E&M: 61731 Subs Hosp L2
--- NOTE | 2022-11-12 11:05 | PN.RENAL_ITS ---
Subjective Subjective Alert, awake Objective Data Objective Data Vital Signs: Vital Signs Temp Pulse Resp BP Pulse Ox O2 Del Method O2 Flow Rate 98.2 F 85 18 107/60 95 Nasal Cannula 2 11/12/22 06:54 11/12/22 06:54 11/12/22 06:54 11/12/22 06:54 11/12/22 06:54 11/12/22 07:49 11/12/22 07:49 FiO2 25 11/10/22 22:57 Oxygen Flow Rate (L/min) 2 Oxygen Delivery Method Nasal Cannula Weight: 98.5 kg Body Mass Index (BMI) 33.0 Intake & Output: Intake and Output for Last 24 Hours 11/10/22 11/11/22 11/12/22 23:59 23:59 23:59 Intake Total 0 / 0 730 / 730 Output Total 0 / 150 150 / 150 0 / 0 Balance 0 / -150 580 / 580 0 / 0 Lab / Micro Data Result Diagrams: 11/11/22 05:14 11/12/22 06:55 Labs: Laboratory Results - last 24 hr 11/11/22 11:35: BUN 90 H 11/11/22 14:45: BUN 32 H 11/11/22 16:53: POC Glucose 366 H 11/11/22 21:18: POC Glucose 220 H 11/12/22 06:49: POC Glucose 103 11/12/22 06:55: Sodium 134 L, Potassium 4.3, Chloride 96 L, Carbon Dioxide 28.0, Anion Gap 10, BUN 55 H, Creatinine 5.33 H, Estim Creat Clear Calc 11.41, Est GFR (MDRD) Af Amer 14 L, Est GFR (MDRD) Non-Af 11 L, BUN/Creatinine Ratio 10.3, Glucose 97, Calcium 9.2 Micro: Microbiology 11/10/22 11:13 Blood Culture (Wb) - Anticubital Right Blood Culture - Preliminary No growth in 48 hours. 11/10/22 08:25 Blood Culture (Wb) - Anticubital Right Blood Culture - Preliminary No growth in 48 hours. 11/10/22 23:19 Urine, Clean Catch Legionella Antigen - Final 11/10/22 23:19 Urine, Clean Catch Streptococcus pneumoniae Antigen (M - Sophie l Physical Exam Narrative no obvious distress no pallor no icterus no JVD s1s2 no murmurs lungs clear abdomen soft no organomegaly no edema Assessment & Plan Assessment/Plan (1) ESRD on hemodialysis: PLAN: ESRD, on hemodialysis. Seen on dialysis today. Overall mental status has improved significantly. New onset lung mass. He was here about [address] chest shows lung mass. He is on immunosuppression with tacrolimus for history of liver transplant. Discussed with him today. Apparently he has not seen hepatology for more than 10 years. Has been getting refills with primary care physician and [facility]. Will wait for the results of the lung mass biopsy.
[2022-11-12 11:35] LABS: Bedside Glucose 108 mg/dL (74-106)
[2022-11-12] MEDS: predniSONE 20 MG Tablet PO (12:07)
[2022-11-12] MEDS: Furosemide 20 MG Tablet PO (12:07)
[2022-11-12] MEDS: Tamsulosin HCl 0.4 MG Capsule PO ×2 (12:07→20:46)
[2022-11-12] MEDS: Aspirin E.C. 81 MG Tablet PO (12:07)
[2022-11-12] MEDS: Fluticasone 0.05% 1 SPRAY NASAL.SRY 2 SPRAY NASAL (12:07)
[2022-11-12] MEDS: dilTIAZem CD 120 MG Capsule PO (12:07)
[2022-11-12] MEDS: Calcitriol 0.25 MCG Capsule PO (12:08)
[2022-11-12] MEDS: Tacrolimus 0.5 MG Capsule PO ×2 (12:08→20:46)
[2022-11-12] MEDS: Metoprolol Tartrate 50 MG Tablet PO ×2 (12:08→20:51)
--- NOTE | 2022-11-12 12:57 | DIALYSIS ---
Hemodialysis completed x 3.5 hours. UF 1000 ml. Patient quite anxious and demanding to go home. Hemostasis achhieved post manual hold x 5 minutes per site. Report given to Whitney Winter.
[2022-11-12] MEDS: Albuterol 2.5 MG/3 ML VIAL.NEB. INHALATION (16:19)
[2022-11-12] MEDS: Insulin Lispro 100 UNIT/ML INSULN.PEN SC ×2 (16:42→22:02)
[2022-11-12] MEDS: Smz/Tmp Ds Tablet 1 TABLET PO (16:43)
[2022-11-12] MEDS: NYSTATIN 500,000 UNIT/5 ML UDC 500000 UNIT PO ×2 (16:44→20:46)
--- NOTE | 2022-11-12 16:58 | EX.PCM.CON.G ---
HPI Consult Data Date of Consult: 11/12/22 HPI Narrative Reason for Consultation: dysphagia HPI Narrative: TEX RICHMOND, is a 76 M who presented to [facility] on 11/10/2022 secondary to increasing weakness and falls.? Patient reportedly had been to the ER on the and was found to have a medial right upper lobe mass and a patchy left lower lobe infiltrate and was started on Levaquin.? Patient reportedly was sent back to the emergency department, but did not receive Levaquin over the weekend.? Patient had increasing weakness and reportedly had fallen 4 other times.? Patient is dialysis dependent and is a poor historian.?? PMH ANCA vasculitis; DMII historically uncontrolled with noncompliance; CKD stage 4; respiratory failure; A-flut; HF; history of alcohol abuse; hepatic cirrhosis s/p liver transplant 2006 at [facility] with subsequent alcohol abuse requiring hospitalization. GI [facility] established 2017 for dysphagia with a history of achalasia noted on esophagram 2008. Esophagram 4..?vigorous achalasia. EGD 6..14?esophageal erosion; portal HTN gastropathy; duodenal nodules. [facility] Hospitalization 2.5.18-2.9.18 for management of perforated duodenal ulcer. EGD 2.6.18?erosive duodenitis with superficial ulcers; large punched out duodenal ulcerations with suspicion for full thickeness perforation likely into retroperitoneal tissue; gastritis; esophagitis; no varices. H.Pylori negative. Outpatient workup Dr. Morales: EGD 3..18?portal HTN gastropathy [facility] hospitalization 8.14.19-8.17.19 for management of acute alcohol abuse. [facility] outpatient: US RUQ and vascular 1.17.20 [facility]?normal liver and spleen. Trace perihepatic ascites; normal vasculature flow. *[facility] established 5.19.23. He is unsure as to why he is here. BM occur QOD or less with some rectal pain. No abdominal pain. s/p liver transplant 2006 and is continuing with his medications and is without alcohol use. Lives at [facility] for permanent residency. Dysphagia with PO intake and spontaneous regurgitation. He is enrolled in [facility]. [facility] Medical History Abdominal pain [id number] kidney injury Alcohol abuse Alcohol abuse following liver transplant Alcohol withdrawal Anemia Arthritis Arthritis of carpometacarpal (CMC) joint of right thumb Chronic dermatitis Cirrhosis COPD (chronic obstructive pulmonary disease) COPD exacerbation CPAP (continuous positive airway pressure) dependence Depression Diabetes mellitus Dietary restriction Dyspnea Encephalopathy Former smoker Fracture of left olecranon process Gastric reflux Gout History of anxiety History of CHF (congestive heart failure) History of echocardiogram History of IBS History of renal disease History of skin cancer History of ulceration HTN (hypertension) Hypokalemia Hypoxia Infected ulcer of skin Macular degeneration Nausea & vomiting Non-healing non-surgical wound retirement resident On home oxygen therapy OLVIN (obstructive sleep apnea) Shortness of breath on exertion Superficial ulcer of skin Thyroid disease Urticaria Venous insufficiency of both lower extremities Walker as ambulation aid Wears glasses Home Medications levothyroxine 75 mcg tablet 75 mcg PO DAILY thyroid 11/19/13 [History Last Taken 06/10/22] tacrolimus 1 mg capsule, immediate-release 0.5 mg PO BID transplant med 06/09/16 [History Last Taken 06/10/22] allopurinol 100 mg tablet 100 mg PO DAILY Gout 07/07/19 [History Last Taken 06/10/22] bupropion HCl 150 mg tablet,12 hr sustained-release 150 mg PO BID major depressive disorder 07/07/19 [History Last Taken 06/10/22] multivit with minerals-folic acid-lycopene 0.4 mg-600 mcg tablet 1 tablet PO DAILY supplement 07/07/19 [History Last Taken 06/10/22] aspirin 81 mg tablet,delayed release 81 mg PO DAILY@0800 heart health 08/30/20 [History Last Taken 06/10/22] ergocalciferol (vitamin D2) 1,250 mcg (50,000 unit) capsule 50,000 unit PO MO supplement 08/30/20 [History Last Taken 05/22/22] ketoconazole 2 % shampoo 1 applic TP MOWEFR dry scalp 08/30/20 [History Last Taken 06/09/22] magnesium oxide 400 mg PO TID supplement 08/30/20 [History Last Taken 06/10/22] sertraline 100 mg tablet 100 mg PO QHS depression 08/30/20 [History Last Taken 06/09/22] fluticasone propionate 50 mcg/actuation nasal spray,suspension (Flonase Allergy Relief) 2 spray intranasal DAILY allergies 03/11/21 [History Last Taken 06/10/22] ipratropium 0.5 mg-albuterol 3 mg (2.5 mg base)/3 mL nebulization soln 3 ml inhalation Q6H PRN Wheezing 03/11/21 [History Last Taken 06/10/22] sennosides 8.6 mg tablet (senna) 8.6 mg PO PRN PRN Constipation 03/11/21 [History Last Taken Unknown] zolpidem 5 mg tablet 5 mg PO QHS PRN Insomnia 03/11/21 [History Last Taken 06/09/22] acetaminophen 500 mg tablet 500 mg PO Q6H PRN Pain 02/06/22 [History Last Taken Unknown] bisacodyl 10 mg rectal suppository 10 mg CO Q18H PRN Constipation 02/06/22 [History Last Taken Unknown] calcium carbonate 200 mg calcium (500 mg) chewable tablet (Tums) 200 mg PO Q18H PRN Indigestion 02/06/22 [History Last Taken Unknown] docusate sodium 100 mg capsule (Colace) 100 mg PO DAILY PRN Constipation 02/06/22 [History Last Taken Unknown] furosemide 20 mg tablet (Lasix) 20 mg PO DAILY 02/06/22 [History Last Taken 06/10/22] insulin glargine 100 unit/mL (3 mL) subcutaneous pen (Lantus Solostar U-100 Insulin) 50 unit subcut BREAKFAST DIABETES 02/06/22 [History Last Taken 11/09/22] loperamide 2 mg capsule (Imodium A-D) 2 mg PO Q6H PRN Diarrhea 02/06/22 [History Last Taken 06/10/22] menthol 4 % topical gel (Biofreeze (menthol)) 1 applic topical BID PRN Pain 02/06/22 [History Last Taken Unknown] miconazole nitrate 2 % topical cream 1 applic topical QHS 02/06/22 [History Last Taken 06/10/22] gabapentin 100 mg capsule 100 mg PO TID 04/04/22 [History Last Taken 06/10/22] semaglutide 0.25 mg or 0.5 mg (2 mg/1.5 mL) subcutaneous pen injector (Ozempic) 0.75 mg subcut MO 04/04/22 [History Last Taken 06/09/22] prednisone 20 mg tablet 20 mg PO DAILY 04/24/22 [History Last Taken 06/10/22] calcitriol 0.25 mcg capsule 0.25 mcg PO DAILY KIDNEY DISEASE 06/10/22 [History Last Taken 06/10/22] cetirizine 10 mg tablet (Zyrtec) 10 mg PO DAILY PRN ALLERGIES 06/10/22 [History Last Taken 06/10/22] sulfamethoxazole 800 mg-trimethoprim 160 mg tablet 1 tab PO MOWEFR INFECTION PREVENTION 06/10/22 [History Last Taken 06/09/22] tamsulosin 0.4 mg capsule 0.4 mg PO BID PROSTAIT 06/10/22 [History Last Taken 06/10/22] diltiazem HCl 120 mg capsule,extended release 24 hr 120 mg PO DAILY #0 caps 06/15/22 [Rx Last Taken Unknown] metoprolol tartrate 50 mg tablet 50 mg PO BID #0 tabs 06/15/22 [Rx Last Taken Unknown] warfarin 5 mg tablet (Jantoven) 5 mg PO DAILY@1700 #0 tabs 06/15/22 [Rx Last Taken Unknown] oxycodone-acetaminophen 5 mg-325 mg tablet 1 tab PO Q6H PRN PRN pain 5 days #20 TABLETS 07/14/22 [Rx Last Taken Unknown] famotidine 40 mg tablet 40 mg PO .COMPLEX REFLUX 11/10/22 [History Last Taken Unknown] insulin lispro 100 unit/mL subcutaneous pen (Humalog KwikPen (U-100) Insulin) See Rx Instructions .Route .COMPLEX DIABETES 11/10/22 [History Last Taken 11/09/22] levofloxacin 500 mg tablet 250 mg PO DAILY ANTIBIOTIC 11/10/22 [History Last Taken 11/08/22] polyethylene glycol 3350 17 gram/dose oral powder (Miralax) 4 g PO DAILY CONSTIPATION 11/10/22 [History Last Taken 11/09/22] Allergy/AdvReac Type Severity Reaction Status Date / Time cortisone [Cortisone] Allergy Angioedema Verified 11/10/22 08:18 Penicillins Allergy Unknown Verified 11/10/22 08:18 Surgical History History of esophagogastroduodenoscopy (EGD) History of excision of pilonidal cyst History of knee surgery History of parathyroid surgery History of tonsillectomy Hx of thumb surgery Social History household members: none housing: fpc Smoking Status: Former smoker alcohol intake: former substance use type: does not use ROS Constitutional Constitutional: Reports weakness; Denies chills or fever(s) ENT HEENT: Denies loss taste/smell or nasal congestion Cardiovascular Cardiovascular: Reports dyspnea on exertion, irregular heart rhythm, leg edema and palpitations; Denies chest pain Respiratory/Chest Respiratory/Chest: Reports dyspnea on exertion, portable oxygen @ home and shortness of breath at rest; Denies productive cough Gastrointestinal Gastrointestinal: Reports anorexia; Denies abdominal pain, diarrhea, dry heaves or nausea Genitourinary Genitourinary: Denies change in urinary stream Musculoskeletal Musculoskeletal: Reports other Details: weakness Integumentary Integumentary: Reports other Details: heal wounds, legs wrapped, mild BLE, improved from baseline. Psychiatric Psychiatric: Denies anxiety or confusion Endocrine Endocrinology: Reports fatigue Hematologic/Lymphatic Hematologic/Lymphatic: Reports anemia Physical Exam Narrative no obvious distress no pallor no icterus no JVD s1s2 no murmurs lungs clear abdomen soft no organomegaly no edema Lab / Micro Data Result Diagrams: 11/11/22 05:14 11/12/22 06:55 Labs: Laboratory Results - last 24 hr 11/11/22 16:53: POC Glucose 366 H 11/11/22 21:18: POC Glucose 220 H 11/12/22 06:49: POC Glucose 103 11/12/22 06:55: Sodium 134 L, Potassium 4.3, Chloride 96 L, Carbon Dioxide 28.0, Anion Gap 10, BUN 55 H, Creatinine 5.33 H, Estim Creat Clear Calc 11.41, Est GFR (MDRD) Af Amer 14 L, Est GFR (MDRD) Non-Af 11 L, BUN/Creatinine Ratio 10.3, Glucose 97, Calcium 9.2 11/12/22 11:16: POC Glucose 108 H Micro: Microbiology 11/10/22 11:13 Blood Culture (Wb) - Anticubital Right Blood Culture - Preliminary No growth in 48 hours. 11/10/22 08:25 Blood Culture (Wb) - Anticubital Right Blood Culture - Preliminary No growth in 48 hours. Assessment & Plan Assessment/Plan (1) Achalasia of esophagus: (2) Alcoholic cirrhosis of liver: (3) Encephalopathy acute: (4) Mass of upper lobe of right lung: PLAN: Plan Achalasia of the esophagus identified on barium esophagram.? Typically the treatment for this would be to do esophageal manometry to determine if it is type I or type II achalasia and then subsequently offered the patient myotomy versus balloon dilation plus or minus Botox.? I do not think he is a candidate for Heller myotomy due to multiple other issues at this including pulmonary pretension, COPD, diabetes mellitus, obesity, immunosuppression secondary to liver transplant.? Therefore we will go through with the EGD and Botox to the distal esophagus to hopefully help his esophageal dysphagia to liquids and solids. Charges/Coding Visit Charges Inpatient E&M: 96574 Init Hosp L3
[2022-11-12 17:30] LABS: Bedside Glucose 396 mg/dL (74-106)
[2022-11-12 18:19] LABS: Ammonia < 10.0 umol/L (11-32)
[2022-11-12] MEDS: Miconazole Nitrate Cream 1 APPLIC TOPICAL (20:46)
[2022-11-13] VITALS (16 sets, daily range): BP systolic 80–143; BP diastolic 44–90; PULSE 81–113; RESP 8–106; TEMP 36.4–37.4; O2SAT 92–98
[2022-11-13 00:31] LABS: Bedside Glucose 314 mg/dL (74-106)
[2022-11-13] MEDS: Zolpidem Tartrate 5 MG Tablet PO (02:53)
[2022-11-13 04:56] LABS: Absolute Lymphocyte Count 1.18 X10^3/uL (0.83-4.51); Absolute Neutrophil Count 13.5 X10^3/uL (2.0-7.7); Basophil# 0.04 X10^3/uL; Basophil% 0.2 % (0-1); Eosinophil# 0.01 X10^3/uL; Eosinophils% 0.1 % (0-5); Hematocrit 38.9 % (40-54); Hemoglobin 12.7 g/dL (13.0-16.5); Lymphocyte # 1.18 X10^3/ul (0.83-4.51); Lymphocyte % 6.9 % (19-41); Mean Corp Hgb Conc 32.6 g/dL (32-36); Mean Platelet Vol. 9.8 fl (6.2-12.0); Monocyte# 2.16 X10^3/uL; Monocyte% 12.6 % (0-10); NRBC Flagged by Analyzer 0.2 % (0-5); Neutrophil # 13.53 X10^3/uL (2.7-7.7); Neutrophil % 78.9 % (47-70); POSITIVE DIFFERENTIAL YES; Platelet Count 297 K/mm3 (150-450); Red Blood Count 3.85 M/mm3 (4.6-6.2); White Blood Count 17.2 K/mm3 (4.4-11.0)
[2022-11-13 05:15] LABS: Differential Indicated SCAN CRITERIA MET
[2022-11-13 05:25] LABS: ALB/GLOB Ratio 0.6 RATIO (0.9-2.4); AST(SGOT) 12 U/L (15-37); Alanine Aminotransfer ALT/SGPT 21 U/L (16-61); Albumin, Serum 2.8 g/dL (3.2-5.0); Alkaline Phosphatase 88 U/L (45-117); Anion Gap 12 (5-15); BUN 50 mg/dL (7-18); BUN/Creat Ratio 9.9 RATIO (10-20); Chloride 95 mmol/L (98-107); Creatinine, Serum 5.03 mg/dL (0.70-1.30); EST Glomerular Filtration Rate 12 mL/min (>60); Est Glom Filt Rate - Afr Amer 14 mL/min (>60); Estimated Creatinine Clearance 12.09 ml/min; Globulin 4.4 g/dL (2.2-4.2); Glucose 130 mg/dL (74-106); Potassium 3.9 mmol/L (3.5-5.1); Protein, Total 7.2 g/dL (6.4-8.2); Sodium Level 136 mmol/L (136-145)
[2022-11-13 05:55] LABS: Prothrombin Time (Protime)PT. 22.8 SECONDS (11.7-14.9)
[2022-11-13 05:59] LABS: Differential Comment SCANNED
[2022-11-13 06:25] LABS: Bedside Glucose 493 mg/dL (74-106)
[2022-11-13 06:51] LABS: Bedside Glucose 154 mg/dL (74-106)
--- NOTE | 2022-11-13 08:15 | PN.RENAL_ITS ---
Subjective Subjective Patient sitting in chair. No overnight events. No complaints. Objective Data Objective Data Vital Signs: Vital Signs Temp Pulse Resp BP Pulse Ox O2 Del Method O2 Flow Rate 99.2 F H 92 18 113/66 92 Room Air 2 11/13/22 05:00 11/13/22 05:00 11/13/22 05:00 11/13/22 05:00 11/13/22 07:36 11/13/22 07:36 11/12/22 13:19 FiO2 11/13/22 00:20 Oxygen Flow Rate (L/min) 2 Oxygen Delivery Method Room Air Weight: 98.5 kg Body Mass Index (BMI) 33.0 Intake & Output: Intake and Output for Last 24 Hours 11/11/22 11/12/22 11/13/22 23:59 23:59 23:59 Intake Total 730 / 730 400 / 400 Output Total 150 / 150 0 / 0 Balance 580 / 580 400 / 400 Lab / Micro Data Result Diagrams: 11/13/22 04:44 11/13/22 04:44 Labs: Laboratory Results - last 24 hr 11/12/22 06:55: Sodium 134 L, Potassium 4.3, Chloride 96 L, Carbon Dioxide 28.0, Anion Gap 10, BUN 55 H, Creatinine 5.33 H, Estim Creat Clear Calc 11.41, Est GFR (MDRD) Af Amer 14 L, Est GFR (MDRD) Non-Af 11 L, BUN/Creatinine Ratio 10.3, Glucose 97, Calcium 9.2 11/12/22 11:16: POC Glucose 108 H 11/12/22 16:40: POC Glucose 396 H 11/12/22 17:41: Ammonia < 10.0 L 11/12/22 21:35: POC Glucose 493 H* 11/13/22 00:04: POC Glucose 314 H 11/13/22 04:44: WBC 17.2 H, RBC 3.85 L, Hgb 12.7 L, Hct 38.9 L, MCV 101.0 H, MCH 33.0 H, MCHC 32.6, RDW Std Deviation 52.0 H, RDW Coeff of Kecia 14.0, Plt Count 297, MPV 9.8, Immature Gran % (Auto) 1.300 H, Neut % (Auto) 78.9 H, Lymph % (Auto) 6.9 L, [place] % (Auto) 12.6 H, Eos % (Auto) 0.1, Baso % (Auto) 0.2, Absolute Neuts (auto) 13.5 H, Absolute Lymphs (auto) 1.18, Nucleated RBC % 0.2, Differential Comment SCANNED, Diff Path Review October11/13/22 04:44: Sodium 136, Potassium 3.9, Chloride 95 L, Carbon Dioxide 29.0, Anion Gap 12, BUN 50 H, Creatinine 5.03 H, Estim Creat Clear Calc 12.09, Est GFR (MDRD) Af Amer 14 L, Est GFR (MDRD) Non-Af 12 L, BUN/Creatinine Ratio 9.9 L, Glucose 130 H, Calcium 9.0, Total Bilirubin 0.30, AST 12 L, ALT 21, Alkaline Phosphatase 88, Total Protein 7.2, Albumin 2.8 L, Globulin 4.4 H, Albumin/Globulin Ratio 0.6 L, TSH 0.50 11/13/22 04:44: PT 22.8 H, INR 2.0 11/13/22 06:31: POC Glucose 154 H Micro: Microbiology 11/10/22 11:13 Blood Culture (Wb) - Anticubital Right Blood Culture - Preliminary No growth in 48 hours. 11/10/22 08:25 Blood Culture (Wb) - Anticubital Right Blood Culture - Preliminary No growth in 48 hours. 11/10/22 23:19 Urine, Clean Catch Legionella Antigen - Final 11/10/22 23:19 Urine, Clean Catch Streptococcus pneumoniae Antigen (M - Final Physical Exam Narrative Alert and oriented x3, no obvious distress no JVD s1s2 no murmurs lungs clear anteriorly, faint expiratory wheeze abdomen soft, nontender No pitting edema noted bilateral lower legs Left forearm AV fistula positive thrill and bruit Assessment & Plan Assessment/Plan (1) ESRD on hemodialysis: PLAN: - ESRD, on hemodialysis at [facility] Thursday, Thursday, Thursday, Thursday schedule. Patient dialyzed yesterday on 2K bath. No acute indication for [employer] today. We will plan for dialysis tomorrow. -History of anemia of chronic disease, hemoglobin acceptable at 12.7. No need for BIN at this time. We will monitor hemoglobin trends. - New onset lung mass. He was here about [address] chest shows lung mass. He is on immunosuppression with tacrolimus for history of liver transplant. Apparently he has not seen hepatology for more than 10 years. Has been getting refills with primary care physician and now a doctor at the retirement. CT-guided biopsy scheduled November 20, will wait for the results of the lung mass biopsy. - GI consulted for evaluation of dysphagia; to have EGD
[2022-11-13 08:59] LABS: Hemoglobin A1c 9.7 % (3.8-5.6)
--- NOTE | 2022-11-13 09:25 | RAD_ITS ---
INDICATION: increased cough/green sputum EXAMINATION/TECHNIQUE: X-RAY - XR Chest 1 View COMPARISON: Chest radiograph from 11/10/2022. FINDINGS: Support devices: None. Increased consolidative retrocardiac opacification. Stable right upper lobe 5.3 x 4.9 cm mass. No sizable pleural effusion or pneumothorax. Heart size is stable. Bones and soft tissues are unchanged. RAD/Chest 1 View (Portable) IMPRESSION: 1. Increased consolidative retrocardiac opacification may relate to atelectasis and/or pneumonia. 2. Stable right upper lobe 5.3 x 4.9 cm mass. Electronically Signed: Luc Garcia DO at 10:37 EDT ,
[2022-11-13] MEDS: Fluticasone 0.05% 1 SPRAY NASAL.SRY 2 SPRAY NASAL (09:34)
[2022-11-13] MEDS: Tamsulosin HCl 0.4 MG Capsule PO (09:35)
[2022-11-13] MEDS: NYSTATIN 500,000 UNIT/5 ML UDC 500000 UNIT PO (09:35)
[2022-11-13] MEDS: Tacrolimus 0.5 MG Capsule PO (09:35)
[2022-11-13] MEDS: Furosemide 20 MG Tablet PO (09:36)
[2022-11-13] MEDS: Calcitriol 0.25 MCG Capsule PO (09:36)
[2022-11-13] MEDS: Aspirin E.C. 81 MG Tablet PO (09:51)
[2022-11-13] MEDS: predniSONE 20 MG Tablet PO (09:51)
[2022-11-13] MEDS: Insulin Lispro 100 UNIT/ML INSULN.PEN SC ×2 (11:25→22:01)
[2022-11-13 11:50] LABS: Bedside Glucose 214 mg/dL (74-106)
--- NOTE | 2022-11-13 13:29 | PN.HOSP_ITS ---
Reason for Visit Reason for Visit: Diagnoses Hypo-osmolality and hyponatremia (11/10/22) Hypokalemia (11/10/22) Encephalopathy, unspecified (11/10/22) Pneumonia, unspecified organism (11/10/22) Chronic obstructive pulmonary disease with (acute) exacerbation (11/10/22) Acute and chronic respiratory failure with hypoxia (11/10/22) Acute and chronic respiratory failure with hypercapnia (11/10/22) Achalasia of cardia (11/10/22) Alcoholic cirrhosis of liver without ascites (11/10/22) End stage renal disease (11/10/22) Other nonspecific abnormal finding of lung field (11/10/22) Dependence on renal dialysis (11/10/22) Subjective Subjective Patient with increased cough with green sputum Objective Data Objective Data Vital Signs: Vital Signs Temp Pulse Resp BP Pulse Ox O2 Del Method O2 Flow Rate 99.2 F H 81 18 83/49 L 92 Room Air 2 11/13/22 05:00 11/13/22 09:55 11/13/22 05:00 11/13/22 09:55 11/13/22 10:00 11/13/22 10:00 11/12/22 13:19 FiO2 25 11/13/22 00:20 Oxygen Flow Rate (L/min) 2 Oxygen Delivery Method Room Air Weight: 98.5 kg Body Mass Index (BMI) 33.0 Intake & Output: Intake and Output for Last 24 Hours 11/11/22 11/12/22 11/13/22 23:59 23:59 23:59 Intake Total 730 / 730 400 / 400 Output Total 150 / 150 0 / 0 Balance 580 / 580 400 / 400 Lab / Micro Data Result Diagrams: 11/13/22 04:44 11/13/22 04:44 Labs: Laboratory Results - last 24 hr 11/12/22 16:40: POC Glucose 396 H 11/12/22 17:41: Ammonia < 10.0 L 11/12/22 21:35: POC Glucose 493 H* 11/13/22 00:04: POC Glucose 314 H 11/13/22 04:44: WBC 17.2 H, RBC 3.85 L, Hgb 12.7 L, Hct 38.9 L, MCV 101.0 H, MCH 33.0 H, MCHC 32.6, RDW Std Deviation 52.0 H, RDW Coeff of Kecia 14.0, Plt Count 297, MPV 9.8, Immature Gran % (Auto) 1.300 H, Neut % (Auto) 78.9 H, Lymph % (Auto) 6.9 L, [place] % (Auto) 12.6 H, Eos % (Auto) 0.1, Baso % (Auto) 0.2, Absolute Neuts (auto) 13.5 H, Absolute Lymphs (auto) 1.18, Nucleated RBC % 0.2, Differential Comment SCANNED, Diff Path Review October foll 11/13/22 04:44: Sodium 136, Potassium 3.9, Chloride 95 L, Carbon Dioxide 29.0, Anion Gap 12, BUN 50 H, Creatinine 5.03 H, Estim Creat Clear Calc 12.09, Est GFR (MDRD) Af Amer 14 L, Est GFR (MDRD) Non-Af 12 L, BUN/Creatinine Ratio 9.9 L, Glucose 130 H, Calcium 9.0, Total Bilirubin 0.30, AST 12 L, ALT 21, Alkaline Phosphatase 88, Total Protein 7.2, Albumin 2.8 L, Globulin 4.4 H, Albumin/Globulin Ratio 0.6 L, TSH 0.50 11/13/22 04:44: PT 22.8 H, INR 2.0 11/13/22 04:44: Hemoglobin A1c 9.7 H 11/13/22 06:31: POC Glucose 154 H 11/13/22 11:23: POC Glucose 214 H Micro: Microbiology 11/10/22 11:13 Blood Culture (Wb) - Anticubital Right Blood Culture - Preliminary No growth in 48 hours. 11/10/22 08:25 Blood Culture (Wb) - Anticubital Right Blood Culture - Preliminary No growth in 48 hours. 11/10/22 23:19 Urine, Clean Catch Legionella Antigen - Final 11/10/22 23:19 Urine, Clean Catch Streptococcus pneumoniae Antigen (M - Final Physical Exam Narrative General: Alert, answers questions appropriately HEENT: Atraumatic, normocephalic, Eyes: Anicteric, normal conjunctiva, extraocular movements grossly intact Neck: Supple Respiratory: Somewhat decreased at the bases normal respiratory effort Cardiovascular: Regular rate and rhythm GI: Soft, nontender, nondistended Extremities: No edema Musculoskeletal: Moving all extremities Neuro: No overt focal neurological deficits Skin: Chronic skin changes on bilateral lower extremities, poor toenail hygiene Psych: More cooperative today Assessment & Plan Assessment/Plan (1) Acute on chronic respiratory failure with hypoxia and hypercapnia: (2) COPD with acute exacerbation: (3) Pneumonia: (4) Lung mass: (5) Hyponatremia: (6) End stage renal disease: PLAN: Plan #Increased cough with green sputum -Did report increased cough with sputum production and reports coughing up green sputum, chest x-ray officially pending -Did have increasing white blood cell count which may be due to steroids however it appears he chronically takes 20 mg of prednisone -Seems to have had a 2-day interruption in his chronic prednisone and was restarted yesterday though unsure if that short break with resumption would cause this level of reactivity -Given additional symptoms however will treat with Levaquin 750x1+250 daily for 6 days for dialysis dosing #Esophageal dysmotility/achalasia -Seen by speech therapy and had little to no esophageal motility when swallowing pudding with only some clearance after swallowing liquid and barium swallow. They recommended GI consult -GI consult placed -Patient initially adamant on leaving and did not want to stay for inpatient evaluation however discussed risks and benefits and patient also had regurgitated food and liquid on his tray leading to higher suspicion that he needs evaluation prior to discharge -We will make n.p.o. at midnight -11/13: For EGD with Botox injection today #Acute on chronic respiratory failure with hypoxia and hypercapnia secondary to acute exacerbation of COPD + PNA-now resolved -On admission ABG showed PCO2 of 51.3 with a PaO2 of 72 -He was placed on BiPAP in the ED and improved -Pulm following -Suspect 2/2 PNA -Was initially concern for a COPD and was started on bronchodilators and steroids, also had possible PNA seen on recent CT scan, on rocephin and azithro -11/12: Resolved, now on room air #Right upper lobe lung mass -Seen on CT scan 11/03 -Has outpatient biopsy scheduled 11/20, will need to hold anticoagulation 5 days prior -Follow-up with pulm outpatient #End-stage renal disease on HD -Nephrology following, continue management/dialysis per nephro #Acute encephalopathy?multifactorial -Due to acute hypoxia and hypercapnia with additional toxic component of gabapentin suspected -Continue to hold gabapentin #Diabetes mellitus type 2: Insulin-dependent.? Continue with basal and sliding scale insulin. Uncontrolled #hyponatremia: Chronic, at or higher than baseline presently #Hypothyroidism: Continue levothyroxine #peptic ulcer disease: Continue PPI #A-fib: Continue with diltiazem and metoprolol.? Anticoagulated with warfarin.? Check INR #Liver transplant: 2006.? Continue with steroids and tacrolimus.? Continue with Bactrim. #Heart failure preserved ejection fraction: Chronic.? EF 55% from 2D echocardiogram on June 10, 2022. #DVT ppx: SCDs as Coumadin not therapeutic at this time Celena Barber MD Time spent in the patient's overall evaluation,decision-making process, review of diagnostic data, adjustment of management, discussion with other providers, nursing nursing and ancillary staff involved in patient's care documentation, 30 Minutes Charges/Coding Visit Charges Inpatient E&M: 53945 Subs Hosp L2
--- NOTE | 2022-11-13 15:59 | CASEMGMT ---
SW notified CC via [facility] that patient may return today. Green sheet on chart. Plan: d/c back to [facility] under intermediate level of care. Arlette MELENDREZ
--- NOTE | 2022-11-13 16:05 | NURSING ---
to or per bed
[2022-11-13] MEDS: 0.9% Normal Saline 1,000 ML 15 ML IV (16:37)
[2022-11-13] MEDS: Botulinum Toxin A 100 Units Vial IJ (17:01)
--- NOTE | 2022-11-13 17:19 | OP.EGD_ITS ---
Patient Name: Vineet Moise Procedure Date: 11/13/2022 4:48 PM Date of : 1945 Age: 76 Procedure: Upper GI endoscopy Indications: Dysphagia Providers: Coleman Salinas DO Medicines: Monitored Anesthesia Care Patient Profile: This is a 76 year old male. Refer to note in patient chart for documentation of history and physical. Patient has symptoms of dysphagia with solids. Complications: No immediate complications. Procedure: Pre-Anesthesia Assessment: - Prior to the procedure, a History and Physical was performed, and patient medications and allergies were reviewed. The risks and benefits of the procedure and the sedation options and risks were discussed with the patient. All questions were answered and informed consent was obtained. Patient identification and proposed procedure were verified by the physician in the pre-procedure area. Mental Status Examination: alert and oriented. Airway Examination: normal oropharyngeal airway and neck mobility. Respiratory Examination: clear to auscultation. CV Examination: normal. Prophylactic Antibiotics: The patient does not require prophylactic antibiotics. Prior Anticoagulants: The patient has taken no previous anticoagulant or antiplatelet agents. ASA Grade Assessment: III - A patient with severe systemic disease. After reviewing the risks and benefits, the patient was deemed in satisfactory condition to undergo the procedure. The anesthesia plan was to use monitored anesthesia care (MAC). Immediately prior to administration of medications, the patient was re-assessed for adequacy to receive sedatives. The heart rate, respiratory rate, oxygen saturations, blood pressure, adequacy of pulmonary ventilation, and response to care were monitored throughout the procedure. The physical status of the patient was re-assessed after the procedure. After obtaining informed consent, the endoscope was passed under direct vision. Throughout the procedure, the patient's blood pressure, pulse, and oxygen saturations were monitored continuously. The gastroscope was introduced through the mouth, and advanced to the second part of duodenum. The upper GI endoscopy was accomplished without difficulty. The patient tolerated the procedure well. Moderate Sedation: Moderate (conscious) sedation was personally administered by an anesthesia professional. The following parameters were monitored: oxygen saturation, heart rate, blood pressure, respiratory rate, EKG, adequacy of pulmonary ventilation, and response to care. Scope In: 5:00:48 PM Scope Out: 5:09:10 PM Total Procedure Duration Time 0 hours 8 minutes 22 seconds Findings: Mucosal changes including ringed esophagus, feline appearance, longitudinal furrows, small-caliber esophagus and white plaques were found in the lower third of the esophagus. Biopsies were obtained from the proximal and distal esophagus with cold forceps for histology of suspected eosinophilic esophagitis. Verification of patient identification for the specimen was done. Estimated blood loss was minimal. Abnormal motility was noted at the lower esophageal sphincter. The cricopharyngeus was abnormal. There is a decrease in motility of the esophageal body. The distal esophagus/lower esophageal sphincter is spastic, but gives up passage to the endoscope. Tertiary peristaltic waves are noted. Area was successfully injected with 100 units botulinum toxin. A medium-sized hiatal hernia was present. Mild gastric antral vascular ectasia was present in the gastric antrum. Mild portal hypertensive gastropathy was found in the entire examined stomach. Many oozing cratered duodenal ulcers with pigmented material were found in the duodenal bulb. The largest lesion was 5 mm in largest dimension. Area was successfully injected with 3 mL of a 1:10,000 solution of epinephrine for drug delivery. Coagulation for hemostasis using heater probe was successful. Estimated blood loss was minimal. Impression: - Esophageal mucosal changes consistent with eosinophilic esophagitis. Biopsied. - Abnormal esophageal motility, established achalasia. Injected with botulinum toxin. - Medium-sized hiatal hernia. - Gastric antral vascular ectasia. - Portal hypertensive gastropathy. - Multiple oozing duodenal ulcers with pigmented material. Injected. Treated with a heater probe. Recommendation: - [facility] to [facility] for [facility] care. - Full liquid diet. - Continue present medications. - Await pathology results. - Repeat upper endoscopy in 2 months for retreatment. Procedure Code(s): --- Professional --- 49134, 59, Esophagogastroduodenoscopy, flexible, transoral; with control of bleeding, any method 81839, 59, Esophagogastroduodenoscopy, flexible, transoral; with directed submucosal injection(s), any substance 06310, Esophagogastroduodenoscopy, flexible, transoral; with biopsy, single or multiple CPT copyright 2017 [employer]. All rights reserved. The codes documented in this report are preliminary and upon household manager review may be revised to meet current compliance requirements. Coleman Salinas DO 11/13/2022 5:19:01 PM This report has been signed electronically. Number of Addenda: 0 Note Initiated On: 11/13/2022 4:48 PM
--- NOTE | 2022-11-13 17:20 | OP.CCLET_ITS ---
11/13/2022 Davian Pete MD [address] [place] [address] Re : Upper GI endoscopy procedure for Vineet Moise Dear Dr. Pete This procedure was performed on October. My impressions and recommendations are as follows: Impressions : - Esophageal mucosal changes consistent with eosinophilic esophagitis. Biopsied. - Abnormal esophageal motility, established achalasia. Injected with botulinum toxin. - Medium-sized hiatal hernia. - Gastric antral vascular ectasia. - Portal hypertensive gastropathy. - Multiple oozing duodenal ulcers with pigmented material. Injected. Treated with a heater probe. Recommendations : - Return patient to [facility] for [facility] care. - Full liquid diet. - Continue present medications. - Await pathology results. - Repeat upper endoscopy in 2 months for retreatment. My findings are described in the full procedure note, which is enclosed. If I can be of further assistance, please feel free to contact me at . Sincerely, Coleman Salinas, 11/13/2022 5:19:01 PM This report has been signed electronically.
--- NOTE | 2022-11-13 17:30 | EGD_PTH ---
PATIENT: TEX RICHMOND [facility] U#:[id number] AGE/SX: 76/M ROOM: [facility] RE11/10/[address]: Dr. Mignon Dawkins MD : 1945 BED: 1 DIS: 11/19/2022 SPEC #: [id number] RECD: 11/13/22 18:40 STATUS: TEO REQ #: [id number] SHIRLENE: 11/13/22 17:[address]: Coleman Salinas DEPT: SURGICAL PATHOLOGY RECD BY: Dafne Vargas ENTERED: 11/14/22 10:14 SP TYPE: EGD BIOPSY OTHR DR: MD Dr. Andres Galindo, DO Dr. Nancy Birmingham Dr., MD Dr. Lee Ann Baggott, MD Dr. Paul Nielsen, MD Dr. Paige Pierce, MD Dr. Tanmay Panchabhai, MD Christina Muller, ROOM CLEANER-C Tissues: Esophagus, NOS Procedures: Surgery Specimen Level IV Comments: @ Ordering doctor for SUIV edited from to @ by RGOOD at 11/14/22 144 @ Submitting doctor edited from to @ by RGOOD at 11/14/22 1447 HEADER OPERATION: EGD ([facility]) PRE-OP DIAGNOSIS: Dysphagia TISSUE SUBMITTED: Random esophagus biopsy MICROSCOPIC DIAGNOSIS Esophagus, random biopsy: No pathologic change. AM:latrice 11/18/2022 MICROSCOPIC DESCRIPTION Slides are reviewed. GROSS DESCRIPTION Received in fixative is one container labeled with the patient's name and designated random esophagus. The specimen consists of multiple irregular fragments of light martinez soft tissue that in aggregate measure 0.6 x 0.4 x 0.1 cm. The specimen is totally submitted in one cassette. / SJ:latrice 11/14/2022 TC:5 CPT: 23447
[2022-11-13] MEDS: levoFLOXacin IV 750 MG/150 ML BAG 100 MG IV (20:25)
[2022-11-13] MEDS: Miconazole Nitrate Cream 1 APPLIC TOPICAL (22:00)
[2022-11-13 22:25] LABS: Bedside Glucose 384 mg/dL (74-106)
[2022-11-14] VITALS (14 sets, daily range): BP systolic 100–132; BP diastolic 55–88; PULSE 88–120; RESP 8–22; TEMP 36.6–37.6; O2SAT 92–97
[2022-11-14] MEDS: Zolpidem Tartrate 5 MG Tablet PO (00:23)
[2022-11-14 05:48] LABS: Absolute Lymphocyte Count 0.76 X10^3/uL (0.83-4.51); Absolute Neutrophil Count 12.1 X10^3/uL (2.0-7.7); Basophil# 0.02 X10^3/uL; Basophil% 0.1 % (0-1); Eosinophil# 0.01 X10^3/uL; Eosinophils% 0.1 % (0-5); Hematocrit 35.6 % (40-54); Lymphocyte # 0.76 X10^3/ul (0.83-4.51); Lymphocyte % 5.3 % (19-41); Mean Corp Hgb Conc 33.7 g/dL (32-36); Mean Corpuscular Hgb 33.6 pg (27.0-32.0); Mean Corpuscular Volume 99.7 fL (80-94); Monocyte# 1.18 X10^3/uL; Monocyte% 8.3 % (0-10); NRBC Flagged by Analyzer 0 % (0-5); Platelet Count 243 K/mm3 (150-450); RBC Distribution Width CV 14.2 % (11.6-14.6); RBC Distribution Width SD 51.9 fl (35.1-43.9); Red Blood Count 3.57 M/mm3 (4.6-6.2); White Blood Count 14.2 K/mm3 (4.4-11.0)
[2022-11-14 06:23] LABS: ALB/GLOB Ratio 0.6 RATIO (0.9-2.4); AST(SGOT) 14 U/L (15-37); Alanine Aminotransfer ALT/SGPT 16 U/L (16-61); Albumin, Serum 2.5 g/dL (3.2-5.0); Alkaline Phosphatase 86 U/L (45-117); Anion Gap 11 (5-15); BUN 67 mg/dL (7-18); BUN/Creat Ratio 10.1 RATIO (10-20); Calcium,Total 8.9 mg/dL (8.5-10.1); Chloride 93 mmol/L (98-107); Creatinine, Serum 6.65 mg/dL (0.70-1.30); EST Glomerular Filtration Rate 9 mL/min (>60); Est Glom Filt Rate - Afr Amer 11 mL/min (>60); Estimated Creatinine Clearance 9.14 ml/min; Globulin 4.2 g/dL (2.2-4.2); Glucose 408 mg/dL (74-106); Potassium 3.7 mmol/L (3.5-5.1); Protein, Total 6.7 g/dL (6.4-8.2); Sodium Level 131 mmol/L (136-145)
[2022-11-14 06:34] LABS: International Normalized Ratio 2.4; Prothrombin Time (Protime)PT. 26.3 SECONDS (11.7-14.9)
[2022-11-14] MEDS: Levothyroxine 75 MCG Tablet PO (06:34)
[2022-11-14] MEDS: levoFLOXacin 500 MG Tablet PO (06:34)
[2022-11-14] MEDS: Insulin Lispro 100 UNIT/ML INSULN.PEN SC ×4 (06:38→23:28)
[2022-11-14 07:02] LABS: Bedside Glucose 388 mg/dL (74-106)
--- NOTE | 2022-11-14 08:47 | PN.RENAL_ITS ---
Subjective Subjective no new events Objective Data Objective Data Vital Signs: Vital Signs Temp Pulse Resp BP Pulse Ox O2 Del Method O2 Flow Rate 98.2 F 97 18 120/60 92 Room Air 2 11/14/22 04:00 11/14/22 04:00 11/14/22 04:00 11/14/22 04:00 11/14/22 04:00 11/14/22 04:30 11/13/22 18:50 FiO2 25 11/13/22 00:20 Oxygen Flow Rate (L/min) 2 Oxygen Delivery Method Room Air Weight: 98.5 kg Body Mass Index (BMI) 33.0 Intake & Output: Intake and Output for Last 24 Hours 11/12/22 11/13/22 11/14/22 23:59 23:59 23:59 Intake Total 400 / 400 332.25 / 332.25 Output Total 0 / 0 0 / 0 0 / 0 Balance 400 / 400 332.25 / 332.25 0 / 0 Lab / Micro Data Result Diagrams: 11/14/22 05:28 11/14/22 05:28 Labs: Laboratory Results - last 24 hr 11/13/22 04:44: Hemoglobin A1c 9.7 H 11/13/22 11:23: POC Glucose 214 H 11/13/22 21:56: POC Glucose 384 H 11/14/22 05:28: WBC 14.2 H, RBC 3.57 L, Hgb 12.0 L, Hct 35.6 L, MCV 99.7 H, MCH 33.6 H, MCHC 33.7, RDW Std Deviation 51.9 H, RDW Coeff of Kecia 14.2, Plt Count 243, MPV 10.0, Immature Gran % (Auto) 1.200 H, Neut % (Auto) 85.0 H, Lymph % (Auto) 5.3 L, [place] % (Auto) 8.3, Eos % (Auto) 0.1, Baso % (Auto) 0.1, Absolute Neuts (auto) 12.1 H, Absolute Lymphs (auto) 0.76 L, Nucleated RBC % 0 11/14/22 05:28: Sodium 131 L, Potassium 3.7, Chloride 93 L, Carbon Dioxide 27.0, Anion Gap 11, BUN 67 H, Creatinine 6.65 H, Estim Creat Clear Calc 9.14, Est GFR (MDRD) Af Amer 11 L, Est GFR (MDRD) Non-Af 9 L, BUN/Creatinine Ratio 10.1, Glucose 408 H, Calcium 8.9, Total Bilirubin 0.30, AST 14 L, ALT 16, Alkaline Phosphatase 86, Total Protein 6.7, Albumin 2.5 L, Globulin 4.2, Albumin/Globulin Ratio 0.6 L 11/14/22 05:28: PT 26.3 H, INR 2.4 11/14/22 06:37: POC Glucose 388 H Micro: Microbiology 11/10/22 11:13 Blood Culture (Wb) - Anticubital Right Blood Culture - Preliminary No growth in 48 hours. 11/10/22 08:25 Blood Culture (Wb) - Anticubital Right Blood Culture - Preliminary No growth in 48 hours. 11/10/22 23:19 Urine, Clean Catch Legionella Antigen - Final 11/10/22 23:19 Urine, Clean Catch Streptococcus pneumoniae Antigen (M - Final Physical Exam Narrative Alert and oriented x3, no obvious distress no JVD s1s2 no murmurs lungs clear anteriorly, faint expiratory wheeze abdomen soft, nontender No pitting edema noted bilateral lower legs Left forearm AV fistula positive thrill and bruit Assessment & Plan Assessment/Plan (1) ESRD on hemodialysis: PLAN: - ESRD, on hemodialysis at [facility] Thursday, Thursday, Thursday, Thursday schedule. HD today -History of anemia of chronic disease, hemoglobin acceptable - New onset lung mass. He was here about [address] chest shows lung mass. He is on immunosuppression with tacrolimus for history of liver transplant. Apparently he has not seen hepatology for more than 10 years. Has been getting refills with primary care physician and now a doctor at the [facility]. CT-guided biopsy scheduled November 20, will wait for the results of the lung mass biopsy. - GI consulted for evaluation of dysphagia; s/p EGD
[2022-11-14 09:05] LABS: Pathologist Review Reviewed
[2022-11-14] MEDS: Insulin Glargine-YFGN 100 UNIT/ML Pen 50 UNIT SC (10:00)
[2022-11-14] MEDS: Benzonatate 100 MG Capsule PO (11:41)
--- NOTE | 2022-11-14 12:17 | CASEMGMT ---
ALE notified [facility] that patient will be returning today. ALE also sent some updates. Plan: d/c back to [facility] under intermediate level of care. Arlette MELENDREZ
[2022-11-14] MEDS: Tacrolimus 0.5 MG Capsule PO ×2 (12:49→23:18)
[2022-11-14] MEDS: Calcitriol 0.25 MCG Capsule PO (12:49)
[2022-11-14] MEDS: Aspirin E.C. 81 MG Tablet PO (12:50)
[2022-11-14] MEDS: predniSONE 20 MG Tablet PO (12:50)
[2022-11-14] MEDS: Tamsulosin HCl 0.4 MG Capsule PO ×2 (12:50→23:12)
[2022-11-14] MEDS: Fluticasone 0.05% 1 SPRAY NASAL.SRY 2 SPRAY NASAL (12:52)
--- NOTE | 2022-11-14 12:52 | DIALYSIS ---
3.5 hours Hd completed. UF 2500 ml. Patient tolerated well. AVF WNL cannulated with 16 ga needles. Bleeding cessation within 15 min. See dialysis record
[2022-11-14 13:11] LABS: Bedside Glucose 204 mg/dL (74-106)
--- NOTE | 2022-11-14 13:37 | NURSING ---
C/O not feeling good. States has felt like this for a long time. C/O not being able to breathe. VS BP 98/78, pulse 124, RR 28 and pulse ox 93% on room air.
--- NOTE | 2022-11-14 13:53 | CASEMGMT ---
Patient is ready for discharge. ALE called patient's ex Elaine and notified her that patient will be discharged back to [facility] today. ALE asked Elaine if patient is usually down and frustrated with his situation. Elaine said patient has always been this way. Elaine said she was out of town right now and SW did not need to let her know a pickler helper time. 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
[2022-11-14] MEDS: Metoprolol Tartrate 50 MG Tablet PO (13:54)
[2022-11-14] MEDS: NYSTATIN 500,000 UNIT/5 ML UDC 500000 UNIT PO ×2 (13:55→23:20)
[2022-11-14] MEDS: dilTIAZem CD 120 MG Capsule PO (13:55)
[2022-11-14] MEDS: Furosemide 20 MG Tablet PO (13:55)
--- NOTE | 2022-11-14 14:10 | TREXTCAR_ITS ---
Diet Diet Order/Speech Therapy: 11/14/22 11:08 Diet: Renal - ConsCHO - Segun Cont Food consistency:: Mechanical (Minced/Moist) Liquid Consistency:: Regular/Thin Is pt able to select menu?: No Diet Comments: meds whole in applesauce How many daily calories?: 1999 calorie Routine Orders/Code Status Suppository Type: Dulcolax 10mg Suppository Frequency: Daily PRN Wound(s) BLE: Wound Type: scattered abrasion Rt elbow: Wound Type: Abrasion abdomen: Wound Type: open burnt scar Therapies Physical Therapy: Eval and Treat Occupational Therapy: Eval and Treat Speech Therapy: Eval and Treat Problem/Diagnosis (1) ESRD on hemodialysis: Status: Inactive Code(s): N18.6 - End stage renal disease; Z99.2 - Dependence on renal dialysis (2) End stage renal disease: Status: Acute Code(s): N18.6 - End stage renal disease (3) Mass of upper lobe of right lung: Status: Acute Code(s): R91.8 - Other nonspecific abnormal finding of lung field (4) COPD with acute exacerbation: Status: Chronic Code(s): J44.1 - Chronic obstructive pulmonary disease with (acute) exacerbation (5) Pneumonia: Status: Acute Code(s): J18.9 - Pneumonia, unspecified organism (6) Encephalopathy acute: Status: Inactive Code(s): G93.40 - Encephalopathy, unspecified (7) Liver transplanted: Status: Acute Code(s): Z94.4 - Liver transplant status Comment: 2007 at [facility]; on prograft 2g bid (8) Achalasia of esophagus: Status: Chronic Code(s): K22.0 - Achalasia of cardia (9) Alcoholic cirrhosis of liver: Status: Inactive Code(s): K70.30 - Alcoholic cirrhosis of liver without ascites (10) Acute on chronic respiratory failure with hypoxia and hypercapnia: Status: Resolved Code(s): J96.21 - Acute and chronic respiratory failure with hypoxia; J96.22 - Acute and chronic respiratory failure with hypercapnia (11) Atrial flutter: Status: Acute Code(s): I48.92 - Unspecified atrial flutter (12) Hypothyroid: Status: Acute Code(s): E03.9 - Hypothyroidism, unspecified (13) Duodenal ulcer disease: Status: Acute Code(s): K26.9 - Duodenal ulcer, unspecified as acute or chronic, without hemorrhage or perforation (14) Heart failure with preserved ejection fraction: Status: Acute Code(s): I50.30 - Unspecified diastolic (congestive) heart failure (15) Diabetes mellitus: Status: Acute Code(s): E11.9 - Type 2 diabetes mellitus without complications Plan #Hospital-acquired pneumonia on Levaquin #COPD exacerbation #Acute on chronic respiratory failure with hypoxia and hypercapnia on as needed home O2?resolved #Community-acquired pneumonia present on admission #Right upper lobe lung mass #End-stage renal disease on HD #Acute combined encephalopathy secondary to gabapentin as well as hypoxia #Duodenal ulcers #Achalasia/esophageal dysmotility status post Botox 76-year-old male with a history of achalasia, heart failure preserved ejection fraction, end-stage renal disease on hemodialysis, COPD, a flutter presented to [facility] 11/10/2022 with increasing shortness of breath. He presented from the half-way with increasing weakness and falls and was short of breath and required BiPAP placement. He had a chest x-ray that showed right upper lobe mass on imaging on the which was new since May. He also had a left lower lobe infiltrate and was started on Levaquin and discharged back to the half-way. He worsened since that time causing his presentation he was diagnosed with acute on chronic respiratory failure with hypoxia and hypercapnia with a PCO2 of 51.3 and a PaO2 of 72 on his ABG which was felt to be due to exacerbation of COPD in addition to pneumonia as well as his lung mass. Was treated with Rocephin and azithromycin and IV steroids as well as DuoNebs. CT scan obtained with further characterization of right upper lobe lung mass and plan was made for outpatient biopsy 11/20 with holding Coumadin 5 days prior. On presentation as well he had acute encephalopathy which was felt to be in part due to his combined respiratory failure with metabolic component as well as toxic component of his gabapentin. He improved with treatment and plan was for discharge however he was noted on a formal speech eval to have very poor esophageal motility with pudding with difficulty clearing even with swallowing water after and he had some regurgitation and sticking feeling. Has known achalasia but did not have scope scheduled for several months. Due to concern that he could aspirate or acutely worsen GI was consulted and he underwent upper endoscopy on 11/13/2022 which noted the abnormal esophageal motility, established achalasia which was injected with botulism toxin. Also had esophageal mucosal changes consistent with possible eosinophilic esophagitis, gastric antral vascular ectasia, portal hypertensive gastropathy, and multiple oozing duodenal ulcers with pigmented material which were injected and treated with heater probe. Discussed with GI who recommended either aspirin or Coumadin and not both, discussed having to hold the Coumadin for the biopsy and it was decided he could continue aspirin at this time and postbiopsy the discretion of his physician this could be discontinued and switch back to Coumadin when feasible. Day prior to discharge he was complaining of some increased cough and sputum production and had elevated white count, chest x-ray reviewed and between that and clinical picture he was started on Levaquin and improved significantly. Stable day of discharge. Did have his a.m. Cardizem and metoprolol held in part due to dialysis and heart rate went to 120s which caused him some shortness of breath. He was given his medications with improvement and discharged back to [facility]. Discharge instructions as follows: -You have a biopsy of your lung mass scheduled for 11/20/2022. You will need to hold your Coumadin for 5 days prior to this being scheduled, given you work found to have oozing duodenal ulcers and this would need to be held starting tomorrow, would recommend foregoing today's evening dose as well -You were found to have duodenal ulcers on your upper endoscopy. It is recommended that you continue your aspirin and after your biopsy switch your blood thinner back to Coumadin. It is recommended that you only take one of these and given your history of irregular heart beat it may be beneficial to resume the Coumadin but will defer to your outpatient physician for final determination. -You will also be discharged on Protonix 40 mg twice daily for 4 weeks and can likely de-escalate to 40 daily at that time -Continue follow-up with nephrology/continue dialysis as previously scheduled -You will need to follow-up with Dr. Salinas with GI in his office upon discharge. Please call his office to schedule your hospital follow-up appointment (ph. [phone]) -You have had recommendations for your eating/diet per speech therapy. Recommendation: Mechanical Soft Textures, Thin Liquid. Small Bites, Small Sips, Sitting upright, Remain sitting upright for 30 minutes after PO intake, Minimize/decrease distractions -You will be discharged with an antibiotic to complete your treatment course for pneumonia. Given you are on dialysis you will take 500 mg of Levaquin every other day to complete a 7-day course, your next dose is November 16 followed by November 18 and your last doses 11/20 -It appears you used to be prescribed 20 mg of prednisone daily and this was recently decreased to 10 mg, will discharge on the 10 mg. May benefit from ultimately being tapered completely off but will defer to your prescribing physician for timing/duration of taper -It is strongly recommended that you do not resume taking gabapentin as this may contribute to confusion and lethargy. There are no pain medications that appear to have been being filled prior to admission so none were prescribed on discharge -Would recommend changing your bupropion 150 sustained-release twice daily to 150 extended release daily as this may help prevent sleep disturbance -Your metoprolol has been decreased due to episodes of low blood pressure. Would recommend checking your blood pressure prior to taking your medication in the morning and hold Cardizem for systolic blood pressure less than 100 or heart rate less than 60 and holding metoprolol additionally if systolic is less than 90 or heart rate less than 60. If either or both need to be held, especially repeatedly, may consider dose adjustment/medication changes -Please call your primary care provider's office upon discharge to schedule a hospital follow up within 1 week. -For any concerning signs or symptoms please call 911 or proceed to the nearest emergency department Allergies/Procedures Done in Hospital Allergies cortisone [Cortisone] Allergy (Verified 11/20/22 09:08) Angioedema Penicillins Allergy (Verified 11/20/22 09:08) Unknown CHILDHOOD REACTION Procedures: EGD Type of Care/Length of Stay Estimated LOS: More Than 30 Days Type of Care Needed: Intermediate Rehab Potential: Fair Prognosis: Fair Additional Orders/Day of Discharge Day of Discharge: 11/14/22 Dietary and Speech Recommendations Dietitian Recommendations/Changes: Will change diet to 2000 calorie/consistent carbohydrate; Renal/general. Discharge Plan Admission Admit Date/Time: 11/10/22 13:23 Primary Reason for Your Visit: COPD Exacerbation, MSSA PNA, BETH Bacteremia, GI bleed, Achalasia, Resp fail Attending Provider: Mignon Dawkins Primary Care Provider: Davian Pete Consulting Providers: Willem Acosta ; Andres Reyez ; Dami Schwartz ; Wili Leon ; Nona Rivera WORKFORCE DEVELOPMENT SPECIALIST ; Nancy Sargent ; Derick Salgado ; Celena Barber ; Leonardo Zuniga Instructions Patient Instructions: Discharge Instructions: COPD, RAD high climber Instructions Needle Biopsy: Lung, Gastric Duodenal Ulcer Ch, ED Pneumonia (Adult), RAD RN Procedural Sedation Additional Instructions / Restrictions: DISCHARGE INSTRUCTIONS PLEASE READ UPCOMING LUNG BIOPSY: -You have a biopsy of your lung mass scheduled for 11/20/2022. -Continue to hold your Coumadin and only resume once allowed to do so per Radiology following. GI BLEED/DUODENAL ULCER DISEASE: -You were found to have duodenal ulcers on your upper endoscopy. -It is recommended that you continue low dose aspirin only temporarily and after your biopsy once allowed switch back to your coumadin with close INR monitoring until appropriate level achieved. -You will also be discharged on Protonix 40 mg twice daily for 4 weeks and can likely de-escalate to 40 daily at that time but this will be determined also by gastroenterology. -Please plan to follow-up with Dr. Salinas (may see his WORKFORCE DEVELOPMENT SPECIALIST) in the office in 4 weeks. ESOPHAGEAL ACHALASIA: -Your recent studies demonstrated evidence of abnormal esophageal motility with an established history of achalasia with injection performed with botulinum toxin, gastric antral vascular ectasia, medium sized hiatal hernia as well as portal hypertensive gastropathy and multiple oozing duodenal ulcers with pigmented material which were injected and treated with a heater probe with recommended repeat endoscopy in 2 months. -You have had recommendations for your eating/diet per speech therapy. -Recommendation: Mechanical Soft Textures, Thin Liquid. Small Bites, Small Sips, Sitting upright, Remain sitting upright for 30 minutes after PO intake, Minimize/decrease distractions. -Please plan to follow-up with Dr. Salinas (may see his WORKFORCE DEVELOPMENT SPECIALIST) in the office in 4 weeks. PNEUMONIA/COPD EXACERBATION with associated BLOOD INFECTION (BACTEREMIA): -You will be discharged with an antibiotic to complete your treatment both pneumonia and the blood infection (same organism) which will be administered with dialysis x 4 weeks (Ancef). -You were treated with a course of IV steroids as well as oral steroids inpatient which was weaned off. ADDITIONAL RECOMMENDATIONS/MEDICATION CHANGES: -It is strongly recommended that you do not resume taking gabapentin as this may contribute to confusion and lethargy. -Would recommend changing your bupropion 150 sustained-release twice daily to 150 extended release daily as this may help prevent sleep disturbance. -Your metoprolol has been decreased due to episodes of low blood pressure. Would recommend checking your blood pressure prior to taking your medication in the morning and hold Cardizem for systolic blood pressure less than 100 or heart rate less than 60 and holding metoprolol additionally if systolic is less than 90 or heart rate less than 60. If either or both need to be held, especially repeatedly, may consider dose adjustment/medication changes. Discharge Orders/Prescriptions Prescriptions: New bupropion HCl 150 mg tablet extended release 24 hr 150 mg PO DAILY 30 Days Qty: 30 0RF metoprolol tartrate 25 mg tablet 12.5 mg PO BID 30 Days Qty: 30 0RF Rx Instructions: Hold for heart rate <60 or SBP <90 pantoprazole [Protonix] 40 mg tablet,delayed release (DR/EC) 40 mg PO BID 30 Days Qty: 60 0RF cefazolin 2 gram recon soln 2 g IV .as directed Qty: 12 0RF Rx Instructions: Dose to be given with dialysis: 2gm on Mon 2gm on Thu 3gm on Thu dx: MSSA bacteremia. Stop date 12/15/22. weekly bmp and cbc. Fax to [phone] Continued levothyroxine 75 MCG tablet 75 mcg PO DAILY tacrolimus 1 MG capsule 0.5 mg PO BID allopurinol 100 MG tablet 100 mg PO DAILY multivit with ygl-WC-ekfevyyx 1 EACH tablet 1 tablet PO DAILY ketoconazole 120 ML shampoo 1 applic TP MOWEFR sertraline 100 MG tablet 100 mg PO QHS aspirin 81 MG tablet,delayed release (DR/EC) 81 mg PO DAILY@0800 ergocalciferol (vitamin D2) 50,000 UNIT capsule 50,000 unit PO MO ipratropium-albuterol 0.5 mg-3 mg(2.5 mg base)/3 mL Solution For Nebulization 3 ml INHALATION Q6H PRN (Reason: Wheezing) zolpidem 5 mg Tablet 5 mg PO QHS PRN (Reason: Insomnia) fluticasone propionate [Flonase Allergy Relief] 50 mcg/actuation [place],Suspension 2 spray INTRANASAL DAILY sennosides [senna] 8.6 mg Tablet 8.6 mg PO PRN PRN (Reason: Constipation) loperamide [Imodium A-D] 2 mg Capsule 2 mg PO Q6H PRN (Reason: Diarrhea) miconazole nitrate 2 % Cream 1 applic TOPICAL QHS acetaminophen 500 mg Tablet 500 mg PO Q6H PRN (Reason: Pain) bisacodyl 10 mg Suppository 10 mg MS Q18H PRN (Reason: Constipation) calcium carbonate [Tums] 200 mg calcium (500 mg) Tablet,Chewable 200 mg PO Q18H PRN (Reason: Indigestion) docusate sodium [Colace] 100 mg Capsule 100 mg PO DAILY PRN (Reason: Constipation) furosemide [Lasix] 20 mg Tablet 20 mg PO DAILY insulin glargine [Lantus Solostar U-100 Insulin] 100 unit/mL (3 mL) Insulin Pen 50 unit SUBCUT BREAKFAST Biofreeze (menthol) 4 % Gel 1 applic TOPICAL BID PRN (Reason: Pain) Ozempic 0.25 mg or 0.5 mg(2 mg/1.5 mL) Pen Injector 0.75 mg SUBCUT MO Rx Instructions: for 4 doses cetirizine [Zyrtec] 10 mg Tablet 10 mg PO DAILY PRN (Reason: ALLERGIES) sulfamethoxazole-trimethoprim 800-160 mg tablet 1 tab PO MOWEFR tamsulosin 0.4 mg Capsule 0.4 mg PO BID calcitriol 0.25 mcg capsule 0.25 mcg PO DAILY insulin lispro [Humalog KwikPen Insulin] 100 unit/mL Insulin Pen See Rx Instructions .ROUTE .COMPLEX Rx Instructions: PER SLIDING SCALE AC 0-15=0 U 151-200=2 U 201-250=4 U 251-300=6 U 301-350= 8 U 351-400=10 U 401-450=12 U >450=14 U AND UPDATE famotidine 40 mg tablet 40 mg PO .COMPLEX Rx Instructions: 40 mg orally every Thursday, Thursday, Thursday polyethylene glycol 3350 [Miralax] 17 gram/dose powder 4 g PO DAILY diltiazem HCl 120 mg Capsule,Extended Release 24hr 120 mg PO DAILY Qty: 0 0RF Rx Instructions: Hold for heart rate <60 or SBP <100 or Changed prednisone 20 mg tablet 10 mg PO DAILY 30 Days Qty: 0 0RF Held magnesium oxide 400 MG tablet 400 mg PO TID Hold Instructions: Resume on 11/16/22. Please verify dosing with nephrology before resuming warfarin [Jantoven] 5 mg Tablet 5 mg PO DAILY@1700 Qty: 0 0RF Hold Instructions: Resume on 11/21/22. Hold for biopsy 11/20, resume and given the okay to do so by your physician. At that time would recommend resuming Coumadin and stopping aspirin Discontinued bupropion HCl 150 MG tablet sustained-release 12 hr 150 mg PO BID gabapentin 100 mg Capsule 100 mg PO TID metoprolol tartrate 50 mg Tablet 50 mg PO BID Qty: 0 0RF oxycodone-acetaminophen [oxycodone-acetaminophen] 5-325 mg tablet 1 tab PO Q6H PRN PRN (Reason: pain) 5 Days Qty: 20 0RF levofloxacin 500 mg tablet 250 mg PO DAILY Rx Instructions: MON, WED, FRI UNTIL 11/22 Referrals / Follow Up: Willem Acosta MD [Med Staff - Active Staff] - 11/20/22 9:00 am (CT guided biopsy- Hold coumadin for 5 days prior. 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
--- NOTE | 2022-11-14 16:33 | PN.HOSP_ITS ---
Reason for Visit Reason for Visit: Diagnoses Hypo-osmolality and hyponatremia (11/10/22) Hypokalemia (11/10/22) Encephalopathy, unspecified (11/10/22) Pneumonia, unspecified organism (11/10/22) Chronic obstructive pulmonary disease with (acute) exacerbation (11/10/22) Acute and chronic respiratory failure with hypoxia (11/10/22) Acute and chronic respiratory failure with hypercapnia (11/10/22) Achalasia of cardia (11/10/22) Alcoholic cirrhosis of liver without ascites (11/10/22) End stage renal disease (11/10/22) Other nonspecific abnormal finding of lung field (11/10/22) Dependence on renal dialysis (11/10/22) Subjective Subjective Patient earlier this morning reported breathing roughly the same and had no acute complaints and plan was to discharge today. He did not get his a.m. metoprolol and Cardizem due to BP and dialysis and heart rate later in the day then was elevated and caused him some shortness of breath. As his blood pre ssure improved he was given both medications but then he was dizzy upon standing despite not being hypotensive or bradycardic but is possible that doses are too high for him at this time. Unfortunately given his symptoms and difficulty taking several steps due to lightheadedness when standing he was kept overnight with adjustments to blood pressure medications made with goal of discharge tomorrow Objective Data Objective Data Vital Signs: Vital Signs Temp Pulse Resp BP Pulse Ox O2 Del Method O2 Flow Rate 99.6 F H 113 H 18 112/74 93 Room Air 2 11/14/22 15:28 11/14/22 15:39 11/14/22 15:28 11/14/22 15:39 11/14/22 15:28 11/14/22 15:28 11/13/22 18:50 FiO2 25 11/13/22 00:20 Oxygen Flow Rate (L/min) 2 Oxygen Delivery Method Room Air Weight: 98.5 kg Body Mass Index (BMI) 33.0 Intake & Output: Intake and Output for Last 24 Hours 11/12/22 11/13/22 11/14/22 23:59 23:59 23:59 Intake Total 400 / 400 332.25 / 332.25 Output Total 0 / 0 0 / 0 2500 / 2500 Balance 400 / 400 332.25 / 332.25 -2500 / -2500 Lab / Micro Data Result Diagrams: 11/14/22 05:28 11/14/22 05:28 Labs: Laboratory Results - last 24 hr 11/13/22 04:44: Diff Path Review Reviewed 11/13/22 21:56: POC Glucose 384 H 11/14/22 05:28: WBC 14.2 H, RBC 3.57 L, Hgb 12.0 L, Hct 35.6 L, MCV 99.7 H, MCH 33.6 H, MCHC 33.7, RDW Std Deviation 51.9 H, RDW Coeff of Kecia 14.2, Plt Count 243, MPV 10.0, Immature Gran % (Auto) 1.200 H, Neut % (Auto) 85.0 H, Lymph % (Auto) 5.3 L, [place] % (Auto) 8.3, Eos % (Auto) 0.1, Baso % (Auto) 0.1, Absolute Neuts (auto) 12.1 H, Absolute Lymphs (auto) 0.76 L, Nucleated RBC % 0 11/14/22 05:28: Sodium 131 L, Potassium 3.7, Chloride 93 L, Carbon Dioxide 27.0, Anion Gap 11, BUN 67 H, Creatinine 6.65 H, Estim Creat Clear Calc 9.14, Est GFR (MDRD) Af Amer 11 L, Est GFR (MDRD) Non-Af 9 L, BUN/Creatinine Ratio 10.1, Glucose 408 H, Calcium 8.9, Total Bilirubin 0.30, AST 14 L, ALT 16, Alkaline Phosphatase 86, Total Protein 6.7, Albumin 2.5 L, Globulin 4.2, Albumin/Globulin Ratio 0.6 L 11/14/22 05:28: PT 26.3 H, INR 2.4 11/14/22 06:37: POC Glucose 388 H 11/14/22 12:47: POC Glucose 204 H Micro: Microbiology 11/10/22 11:13 Blood Culture (Wb) - Anticubital Right Blood Culture - Preliminary No growth in 48 hours. 11/10/22 08:25 Blood Culture (Wb) - Anticubital Right Blood Culture - Preliminary No growth in 48 hours. 11/10/22 23:19 Urine, Clean Catch Legionella Antigen - Final 11/10/22 23:19 Urine, Clean Catch Streptococcus pneumoniae Antigen (M - Final Radiography Diagnostic Testing: Radiology Impression Chest X-Ray 11/13/22 09:25 IMPRESSION: 1. Increased consolidative retrocardiac opacification may relate to atelectasis and/or pneumonia. 2. Stable right upper lobe 5.3 x 4.9 cm mass. Electronically Signed: Luc Garcia DO at 10:37 EDT , Physical Exam Narrative General: Alert, answers most questions appropriately HEENT: Atraumatic, normocephalic, Eyes: Anicteric, normal conjunctiva, extraocular movements grossly intact Neck: Supple Respiratory: Some slight wheezes in upper lobes, normal respiratory effort Cardiovascular: Regular rate and rhythm GI: Soft, nontender, nondistended Extremities: No edema Musculoskeletal: Moving all extremities Neuro: No overt focal neurological deficits Skin: Chronic skin changes on bilateral lower extremities, scabs on abdomen Psych: More cooperative today Assessment & Plan Assessment/Plan (1) Acute on chronic respiratory failure with hypoxia and hypercapnia: (2) COPD with acute exacerbation: (3) Pneumonia: (4) Lung mass: (5) Hyponatremia: (6) End stage renal disease: PLAN: Plan #Increased cough with green sputum -Did report increased cough with sputum production and reports coughing up green sputum, chest x-ray officially pending -Did have increasing white blood cell count which may be due to steroids however it appears he chronically takes 20 mg of prednisone -Seems to have had a 2-day interruption in his chronic prednisone and was restarted yesterday though unsure if that short break with resumption would cause this level of reactivity -Given additional symptoms however will treat with Levaquin 750x1+250 daily for 6 days for dialysis dosing -11/14: Dosing changed to 500 every 48, sputum production improving, did have some wheezing and nebs currently as needed, will give additional treatment #Esophageal dysmotility/achalasia/duodenal ulcers -Seen by speech therapy and had little to no esophageal motility when swallowing pudding with only some clearance after swallowing liquid and barium swallow. They recommended GI consult -GI consult placed -Patient initially adamant on leaving and did not want to stay for inpatient evaluation however discussed risks and benefits and patient also had regurgitated food and liquid on his tray leading to higher suspicion that he needs evaluation prior to discharge -We will make n.p.o. at midnight -11/13: For EGD with Botox injection today -11/14: EGD with esophageal mucosal changes concerning for eosinophilic esophagitis, abnormal motility with establish achalasia injected with Botox, gastric antral vascular ectasia, portal hypertensive gastropathy. Noted multiple oozing duodenal ulcers with pigmented material that were injected and treated with heater probe. Discussed with gastroenterology, continue only aspirin or Coumadin, his Coumadin is going to be held we will continue aspirin at this time and after biopsy Coumadin can be resumed and aspirin can be held at discretion of provider. Also started on PPI twice daily #Acute on chronic respiratory failure with hypoxia and hypercapnia secondary to acute exacerbation of COPD + PNA-now resolved -On admission ABG showed PCO2 of 51.3 with a PaO2 of 72 -He was placed on BiPAP in the ED and improved -Pulm following -Suspect 2/2 PNA -Was initially concern for a COPD and was started on bronchodilators and steroids, also had possible PNA seen on recent CT scan, on rocephin and azithro -11/12: Resolved, now on room air #Right upper lobe lung mass -Seen on CT scan 11/03 -Has outpatient biopsy scheduled 11/20, will need to hold anticoagulation 5 days prior -Follow-up with pulm outpatient #End-stage renal disease on HD -Nephrology following, continue management/dialysis per nephro #Acute encephalopathy?multifactorial -Due to acute hypoxia and hypercapnia with additional toxic component of gabapentin suspected -Continue to hold gabapentin #Diabetes mellitus type 2: Insulin-dependent.? Continue with basal and sliding scale insulin. Uncontrolled #hyponatremia: Chronic, at or higher than baseline presently #Hypothyroidism: Continue levothyroxine #peptic ulcer disease: Continue PPI #A-fib: Continue with diltiazem and metoprolol.? Anticoagulated with warfarin.? Check INR #Liver transplant: 2006.? Continue with steroids and tacrolimus.? Continue with Bactrim. #Heart failure preserved ejection fraction: Chronic.? EF 55% from 2D echocardiogram on June 10, 2022. #DVT ppx: SCDs as Coumadin not therapeutic at this time Celena Barber MD Time spent in the patient's overall evaluation,decision-making process, review of diagnostic data, adjustment of management, discussion with other providers, nursing nursing and ancillary staff involved in patient's care documentation, 30 Minutes Charges/Coding Visit Charges Inpatient E&M: 88134 Subs Hosp L2
--- NOTE | 2022-11-14 17:00 | RAD_ITS ---
INDICATION: sob EXAMINATION/TECHNIQUE: X-RAY - XR Chest 2 Views COMPARISON: 11/13/2022, CT of 11/03/2022 FINDINGS: LIFE-SUPPORT AND LINES: 1. None HEART AND VESSELS: The cardiac silhouette, pulmonary vasculature have normal appearance. No evidence of congestive failure. LUNGS AND PLEURAL SPACES: There is a lobulated mass in the RIGHT upper lobe estimated at approximately 5.2 x 3.9 cm without significant interval change. There is atelectasis versus infiltrate in the retrocardiac LEFT lower lobe. Remaining lung zones clear. MEDIASTINUM AND HILAR REGIONS: No masses adenopathy noted. No areas of calcification. Visualized upper airway is normal in position. BONY ELEMENTS: No acute bony changes noted. RAD/Chest PA and Lateral IMPRESSION: 1. Stable exam. 2. No evidence congestive failure. 3. RIGHT upper lobe mass without change. 4. Retrocardiac LEFT lower lobe atelectasis versus infiltrate with negligible change. Electronically Signed: Juan Alberto Leblanc MD at 17:26 EDT ,
[2022-11-14 17:01] LABS: Bedside Glucose 209 mg/dL (74-106)
[2022-11-14] MEDS: Ipratropium/Albuterol Sulfate 3 ML AMPUL.NEB INHALATION (18:51)
--- NOTE | 2022-11-14 19:39 | PN_ITS ---
Subjective Subjective Patient underwent an upper endoscopy yesterday for esophageal dysphagia. He tolerated the procedure very well. His discharge was held today due to some blood pressure issues. Objective Data Objective Data Vital Signs: Vital Signs Temp Pulse Resp BP Pulse Ox O2 Del Method O2 Flow Rate 99.6 F H 94 18 112/74 93 Room Air 2 11/14/22 15:28 11/14/22 18:52 11/14/22 18:52 11/14/22 15:39 11/14/22 15:28 11/14/22 15:28 11/13/22 18:50 FiO2 25 11/13/22 00:20 Oxygen Flow Rate (L/min) 2 Oxygen Delivery Method Room Air Weight: 217 lb 2.485 oz Body Mass Index (BMI) 33.0 Intake & Output: Intake and Output for Last 24 Hours 11/12/22 11/13/22 11/14/22 23:59 23:59 23:59 Intake Total 400 / 400 332.25 / 332.25 Output Total 0 / 0 0 / 0 2500 / 2500 Balance 400 / 400 332.25 / 332.25 -2500 / -2500 Lab / Micro Data Result Diagrams: 11/14/22 05:28 11/14/22 05:28 Labs: Laboratory Results - last 24 hr 11/13/22 04:44: Diff Path Review Reviewed 11/13/22 21:56: POC Glucose 384 H 11/14/22 05:28: WBC 14.2 H, RBC 3.57 L, Hgb 12.0 L, Hct 35.6 L, MCV 99.7 H, MCH 33.6 H, MCHC 33.7, RDW Std Deviation 51.9 H, RDW Coeff of Kecia 14.2, Plt Count 243, MPV 10.0, Immature Gran % (Auto) 1.200 H, Neut % (Auto) 85.0 H, Lymph % (Auto) 5.3 L, [place] % (Auto) 8.3, Eos % (Auto) 0.1, Baso % (Auto) 0.1, Absolute Neuts (auto) 12.1 H, Absolute Lymphs (auto) 0.76 L, Nucleated RBC % 0 11/14/22 05:28: Sodium 131 L, Potassium 3.7, Chloride 93 L, Carbon Dioxide 27.0, Anion Gap 11, BUN 67 H, Creatinine 6.65 H, Estim Creat Clear Calc 9.14, Est GFR (MDRD) Af Amer 11 L, Est GFR (MDRD) Non-Af 9 L, BUN/Creatinine Ratio 10.1, Glucose 408 H, Calcium 8.9, Total Bilirubin 0.30, AST 14 L, ALT 16, Alkaline Phosphatase 86, Total Protein 6.7, Albumin 2.5 L, Globulin 4.2, Albumin/Globulin Ratio 0.6 L 11/14/22 05:28: PT 26.3 H, INR 2.4 11/14/22 06:37: POC Glucose 388 H 11/14/22 12:47: POC Glucose 204 H 11/14/22 16:40: POC Glucose 209 H Micro: Microbiology 11/10/22 11:13 Blood Culture (Wb) - Anticubital Right Blood Culture - Preliminary No growth in 48 hours. 11/10/22 08:25 Blood Culture (Wb) - Anticubital Right Blood Culture - Preliminary No growth in 48 hours. 11/10/22 23:19 Urine, Clean Catch Legionella Antigen - Final 11/10/22 23:19 Urine, Clean Catch Streptococcus pneumoniae Antigen (M - Final Radiography Diagnostic Testing: Radiology Impression Chest X-Ray 11/13/22 09:25 IMPRESSION: 1. Increased consolidative retrocardiac opacification may relate to atelectasis and/or pneumonia. 2. Stable right upper lobe 5.3 x 4.9 cm mass. Electronically Signed: Luc Garcia DO at 10:37 EDT , Chest X-Ray 11/14/22 17:00 IMPRESSION: 1. Stable exam. 2. No evidence congestive failure. 3. RIGHT upper lobe mass without change. 4. Retrocardiac LEFT lower lobe atelectasis versus infiltrate with negligible change. Electronically Signed: Juan Alberto Leblanc MD at 17:26 EDT , Physical Exam Narrative General: Alert, answers most questions appropriately HEENT: Atraumatic, normocephalic, Eyes: Anicteric, normal conjunctiva, extraocular movements grossly intact Neck: Supple Respiratory: Some slight wheezes in upper lobes, normal respiratory effort Cardiovascular: Regular rate and rhythm GI: Soft, nontender, nondistended Extremities: No edema Musculoskeletal: Moving all extremities Neuro: No overt focal neurological deficits Skin: Chronic skin changes on bilateral lower extremities, scabs on abdomen Psych: More cooperative today Assessment & Plan Assessment/Plan (1) Duodenal ulcer disease: (2) Achalasia of esophagus: PLAN: Plan 76-year-old gentleman with past medical history of 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 He underwent an upper endoscopy and was discovered to have findings consistent with achalasia with a stricture in the lower esophageal sphincter also with multiple rings in the distal esophagus consistent with eosinophilic esophagitis status post biopsies, dilation and injection with Botox. Also in his upper endoscopy was discovered to have multiple duodenal ulcers. He was placed on PPI therapy and octreotide for 24 hours. His hemoglobin seems to be stable and he is tolerating food without any problems. He will need to come back in the future for further Botox injections and dilation of his esophagus. Hopefully with PPI therapy he will have less problems with esophageal dysphagia secondary to his eosinophilic esophagitis. Charges/Coding Visit Charges Inpatient E&M: 09509 [facility] Hosp L3
[2022-11-14] MEDS: Smz/Tmp Ds Tablet 1 TABLET PO (23:10)
[2022-11-14] MEDS: Metoprolol Tartrate 25 MG Tablet 12.5 MG PO (23:14)
[2022-11-14] MEDS: Miconazole Nitrate Cream 1 APPLIC TOPICAL (23:15)
[2022-11-14] MEDS: Pantoprazole Sodium 40 MG Tablet PO (23:19)
[2022-11-15] VITALS (11 sets, daily range): BP systolic 99–112; BP diastolic 59–96; PULSE 71–89; RESP 12–22; TEMP 36.4–36.6; O2SAT 89–99
[2022-11-15 01:19] LABS: Bedside Glucose 429 mg/dL (74-106)
[2022-11-15] MEDS: Levothyroxine 75 MCG Tablet PO (05:58)
[2022-11-15] MEDS: Insulin Lispro 100 UNIT/ML INSULN.PEN SC ×4 (06:24→22:16)
[2022-11-15 06:36] LABS: Absolute Lymphocyte Count 1.12 X10^3/uL (0.83-4.51); Absolute Neutrophil Count 15.2 X10^3/uL (2.0-7.7); Basophil# 0.06 X10^3/uL; Basophil% 0.3 % (0-1); Eosinophil# 0.01 X10^3/uL; Eosinophils% 0.1 % (0-5); Hemoglobin 11.8 g/dL (13.0-16.5); Lymphocyte # 1.12 X10^3/ul (0.83-4.51); Lymphocyte % 6.2 % (19-41); Mean Corp Hgb Conc 32.8 g/dL (32-36); Mean Corpuscular Hgb 33.1 pg (27.0-32.0); Mean Corpuscular Volume 101.1 fL (80-94); Mean Platelet Vol. 9.5 fl (6.2-12.0); Monocyte# 1.39 X10^3/uL; Monocyte% 7.7 % (0-10); NRBC Flagged by Analyzer 0 % (0-5); Neutrophil # 15.19 X10^3/uL (2.7-7.7); Neutrophil % 83.7 % (47-70); Platelet Count 256 K/mm3 (150-450); RBC Distribution Width CV 13.8 % (11.6-14.6); RBC Distribution Width SD 51.1 fl (35.1-43.9); Red Blood Count 3.56 M/mm3 (4.6-6.2); White Blood Count 18.1 K/mm3 (4.4-11.0)
[2022-11-15 06:45] LABS: International Normalized Ratio 2.2; Prothrombin Time (Protime)PT. 24.2 SECONDS (11.7-14.9)
[2022-11-15 06:47] LABS: Bedside Glucose 242 mg/dL (74-106)
[2022-11-15 07:17] LABS: ALB/GLOB Ratio 0.5 RATIO (0.9-2.4); AST(SGOT) 14 U/L (15-37); Alanine Aminotransfer ALT/SGPT 15 U/L (16-61); Albumin, Serum 2.3 g/dL (3.2-5.0); Alkaline Phosphatase 92 U/L (45-117); Anion Gap 13 (5-15); BUN 44 mg/dL (7-18); BUN/Creat Ratio 7.9 RATIO (10-20); Calcium,Total 9.3 mg/dL (8.5-10.1); Chloride 95 mmol/L (98-107); Creatinine, Serum 5.56 mg/dL (0.70-1.30); EST Glomerular Filtration Rate 11 mL/min (>60); Est Glom Filt Rate - Afr Amer 13 mL/min (>60); Estimated Creatinine Clearance 10.94 ml/min; Globulin 4.6 g/dL (2.2-4.2); Glucose 246 mg/dL (74-106); Potassium 3.8 mmol/L (3.5-5.1); Protein, Total 6.9 g/dL (6.4-8.2); Sodium Level 134 mmol/L (136-145)
[2022-11-15] MEDS: Insulin Glargine-YFGN 100 UNIT/ML Pen 50 UNIT SC (09:07)
[2022-11-15] MEDS: Tamsulosin HCl 0.4 MG Capsule PO ×2 (09:08→20:37)
[2022-11-15] MEDS: Aspirin E.C. 81 MG Tablet PO (09:08)
[2022-11-15] MEDS: Furosemide 20 MG Tablet PO (09:08)
[2022-11-15] MEDS: predniSONE 20 MG Tablet PO (09:08)
[2022-11-15] MEDS: Calcitriol 0.25 MCG Capsule PO (09:09)
[2022-11-15] MEDS: Tacrolimus 0.5 MG Capsule PO ×2 (09:09→20:40)
[2022-11-15] MEDS: NYSTATIN 500,000 UNIT/5 ML UDC 500000 UNIT PO ×4 (09:09→20:38)
[2022-11-15] MEDS: Pantoprazole Sodium 40 MG Tablet PO ×2 (09:09→20:37)
[2022-11-15] MEDS: Metoprolol Tartrate 25 MG Tablet 12.5 MG PO ×2 (09:10→20:38)
[2022-11-15] MEDS: Fluticasone 0.05% 1 SPRAY NASAL.SRY 2 SPRAY NASAL (09:13)
[2022-11-15] MEDS: 0.9% Saline Lock 10 ML Syringe IV ×2 (09:18→17:30)
[2022-11-15 09:37] LABS: Bedside Glucose 224 mg/dL (74-106)
--- NOTE | 2022-11-15 11:19 | CT_ITS ---
HISTORY: Increasing O2 requirement, new malignancy, ?PE. TECHNIQUE: CT angiogram of the chest was performed after the intravenous administration of 100 mL Isovue-370. Post-processing of the angiographic images was performed with multiplanar reformation and 3D reconstruction. Individualized dose optimization techniques were used for this CT. 1327 images. COMPARISON: XR prior day. CT 11/03/2022 FINDINGS: Artifact from positioning. CENTRAL AIRWAYS: Patent. LUNGS: 4.6 x 5.2 cm lobulated right upper lobe mass abutting the mediastinum with bronchovascular displacement. New dependent groundglass opacities of the right upper and middle lobes. New ground glass opacities in the right lower lobe anteriorly with new nodular alveolar and patchy right lower lobe opacities more posteriorly. Calcified granulomas bilaterally. New mixed groundglass and alveolar opacities in the lingula. Increased left lower lobe consolidation. PLEURA: No pneumothorax or significant pleural effusion. HEART/PERICARDIUM: Heart within normal limits in size with coronary artery disease. Mild pericardial effusion. PULMONARY ARTERIES: No filling defect. AORTA/VESSELS: No thoracic aortic aneurysm or dissection flap. Mild atherosclerosis MEDIASTINUM/CHRISTINE: Multiple calcified mediastinal and hilar lymph nodes. OSSEOUS STRUCTURES: Degenerative change. Gynecomastia. UPPER ABDOMEN: Right upper quadrant postoperative change of cholecystectomy and resection of the left hepatic lobe. Calcified splenic granulomas. CT/CTA Chest W/WO Contrast IMPRESSION: Redemonstration of right upper lobe mass concerning for neoplasm. Increased bilateral pneumonia or pneumonitis. No evidence of pulmonary embolism. Electronically Signed: Marcelina Brown MD at 13:35 EDT ,
[2022-11-15 11:28] LABS: Bedside Glucose 240 mg/dL (74-106)
--- NOTE | 2022-11-15 11:33 | PN.HOSP_ITS ---
Reason for Visit Reason for Visit: Diagnoses Hypo-osmolality and hyponatremia (11/10/22) Hypokalemia (11/10/22) Encephalopathy, unspecified (11/10/22) Pneumonia, unspecified organism (11/10/22) Chronic obstructive pulmonary disease with (acute) exacerbation (11/10/22) Acute and chronic respiratory failure with hypoxia (11/10/22) Acute and chronic respiratory failure with hypercapnia (11/10/22) Achalasia of cardia (11/10/22) Duodenal ulcer, unspecified as acute or chronic, without hemorrhage or perforation (11/10/22) Alcoholic cirrhosis of liver without ascites (11/10/22) End stage renal disease (11/10/22) Other nonspecific abnormal finding of lung field (11/10/22) Dependence on renal dialysis (11/10/22) Subjective Subjective Patient require increased O2 overnight, reports breathing roughly the same as yesterday, slight cough. Did not report any other specific complaints Objective Data Objective Data Vital Signs: Vital Signs Temp Pulse Resp BP Pulse Ox O2 Del Method O2 Flow Rate 97.5 F L 89 18 110/94 H 96 Nasal Cannula 6 11/15/22 11:00 11/15/22 11:00 11/15/22 11:00 11/15/22 11:00 11/15/22 11:15 11/15/22 11:00 11/15/22 11:15 FiO2 40 11/14/22 21:30 Oxygen Flow Rate (L/min) [ 6 AMBULATING with Oxygen #1] Oxygen Flow Rate (L/min) [At 6 REST with Oxygen] Oxygen Flow Rate (L/min) 6 Oxygen Delivery Method Nasal Cannula Weight: 98.5 kg Body Mass Index (BMI) 33.0 Intake & Output: Intake and Output for Last 24 Hours 11/13/22 11/14/22 11/15/22 23:59 23:59 23:59 Intake Total 332.25 / 332.25 Output Total 0 / 0 2500 / 2500 Balance 332.25 / 332.25 -2500 / -2500 Lab / Micro Data Result Diagrams: 11/15/22 06:25 11/15/22 06:25 Labs: Laboratory Results - last 24 hr 11/14/22 12:47: POC Glucose 204 H 11/14/22 16:40: POC Glucose 209 H 11/14/22 23:28: POC Glucose 429 H 11/15/22 05:54: POC Glucose 242 H 11/15/22 06:25: WBC 18.1 H, RBC 3.56 L, Hgb 11.8 L, Hct 36.0 L, MCV 101.1 H, MCH 33.1 H, MCHC 32.8, RDW Std Deviation 51.1 H, RDW Coeff of Kecia 13.8, Plt Count 256, MPV 9.5, Immature Gran % (Auto) 2.000 H, Neut % (Auto) 83.7 H, Lymph % (Auto) 6.2 L, Grundy % (Auto) 7.7, Eos % (Auto) 0.1, Baso % (Auto) 0.3, Absolute Neuts (auto) 15.2 H, Absolute Lymphs (auto) 1.12, Nucleated RBC % 0 11/15/22 06:25: Sodium 134 L, Potassium 3.8, Chloride 95 L, Carbon Dioxide 26.0, Anion Gap 13, BUN 44 H, Creatinine 5.56 H, Estim Creat Clear Calc 10.94, Est GFR (MDRD) Af Amer 13 L, Est GFR (MDRD) Non-Af 11 L, BUN/Creatinine Ratio 7.9 L, Glucose 246 H, Calcium 9.3, Total Bilirubin 0.40, AST 14 L, ALT 15 L, Alkaline Phosphatase 92, Total Protein 6.9, Albumin 2.3 L, Globulin 4.6 H, Albumin/Globulin Ratio 0.5 L 11/15/22 06:25: PT 24.2 H, INR 2.2 11/15/22 09:05: POC Glucose 224 H 11/15/22 11:06: POC Glucose 240 H Micro: Microbiology 11/10/22 08:25 Blood Culture (Wb) - Anticubital Right Blood Culture - Final No growth in 5 days. 11/10/22 11:13 Blood Culture (Wb) - Anticubital Right Blood Culture - Preliminary No growth in 48 hours. 11/10/22 23:19 Urine, Clean Catch Legionella Antigen - Final 11/10/22 23:19 Urine, Clean Catch Streptococcus pneumoniae Antigen (M - Final Radiography Diagnostic Testing: Radiology Impression Chest X-Ray 11/13/22 09:25 IMPRESSION: 1. Increased consolidative retrocardiac opacification may relate to atelectasis and/or pneumonia. 2. Stable right upper lobe 5.3 x 4.9 cm mass. Electronically Signed: Lucindio GarciaDO at 10:37 EDT , Chest X-Ray 11/14/22 17:00 IMPRESSION: 1. Stable exam. 2. No evidence congestive failure. 3. RIGHT upper lobe mass without change. 4. Retrocardiac LEFT lower lobe atelectasis versus infiltrate with negligible change. Electronically Signed: Juan Alberto Leblanc MD at 17:26 EDT , Physical Exam Narrative General: Alert, answers most questions appropriately HEENT: Atraumatic, normocephalic, Eyes: Anicteric, normal conjunctiva, extraocular movements grossly intact Neck: Supple Respiratory: Some slight wheezes in upper lobes, normal respiratory effort Cardiovascular: Regular rate and rhythm GI: Soft, nontender, nondistended Extremities: No edema Musculoskeletal: Moving all extremities Neuro: No overt focal neurological deficits Skin: Chronic skin changes on bilateral lower extremities, scabs on abdomen Psych: More cooperative today Assessment & Plan Assessment/Plan (1) Acute on chronic respiratory failure with hypoxia and hypercapnia: (2) COPD with acute exacerbation: (3) Pneumonia: (4) Lung mass: (5) Hyponatremia: (6) End stage renal disease: PLAN: Plan #Increased cough with green sputum and hypoxia with O2 sat of 89% on 6 L with no regular home O2 needs -Did report increased cough with sputum production and reports coughing up green sputum, chest x-ray officially pending -Did have increasing white blood cell count which may be due to steroids however it appears he chronically takes 20 mg of prednisone -Seems to have had a 2-day interruption in his chronic prednisone and was restarted yesterday though unsure if that short break with resumption would cause this level of reactivity -Given additional symptoms however will treat with Levaquin 750x1+250 daily for 6 days for dialysis dosing -11/14: Dosing changed to 500 every 48, sputum production improving, did have some wheezing and nebs currently as needed, will give additional treatment -11/15: Did have increased O2 requirements overnight, has not been on his Coumadin and has SCDs ordered however not wearing them at present, could be pneumonia but will obtain CTA as with new malignancy is high risk for PE. Continue antibiotics at this time. Does not appear in any respiratory distress and was sitting comfortably but sat did drop to 89% on 6 L when up and moving #Esophageal dysmotility/achalasia/duodenal ulcers -Seen by speech therapy and had little to no esophageal motility when swallowing pudding with only some clearance after swallowing liquid and barium swallow. They recommended GI consult -GI consult placed -Patient initially adamant on leaving and did not want to stay for inpatient evaluation however discussed risks and benefits and patient also had r egurgitated food and liquid on his tray leading to higher suspicion that he needs evaluation prior to discharge -We will make n.p.o. at midnight -11/13: For EGD with Botox injection today -11/14: EGD with esophageal mucosal changes concerning for eosinophilic esophagitis, abnormal motility with establish achalasia injected with Botox, gastric antral vascular ectasia, portal hypertensive gastropathy. Noted multiple oozing duodenal ulcers with pigmented material that were injected and treated with heater probe. Discussed with gastroenterology, continue only aspirin or Coumadin, his Coumadin is going to be held we will continue aspirin at this time and after biopsy Coumadin can be resumed and aspirin can be held at discretion of provider. Also started on PPI twice daily -11/15: Continue current care #Acute on chronic respiratory failure with hypoxia and hypercapnia secondary to acute exacerbation of COPD + PNA-now resolved -On admission ABG showed PCO2 of 51.3 with a PaO2 of 72 -He was placed on BiPAP in the ED and improved -Pulm following -Suspect 2/2 PNA -Was initially concern for a COPD and was started on bronchodilators and steroids, also had possible PNA seen on recent CT scan, on rocephin and azithro -11/12: Resolved, now on room air -11/15: Did have increasing O2 requirements, see #1 #Right upper lobe lung mass -Seen on CT scan 11/03 -Has outpatient biopsy scheduled 11/20, will need to hold anticoagulation 5 days prior -Follow-up with pulm outpatient #End-stage renal disease on HD -Nephrology following, continue management/dialysis per nephro #Acute encephalopathy?multifactorial -Due to acute hypoxia and hypercapnia with additional toxic component of gabapentin suspected -Continue to hold gabapentin #Diabetes mellitus type 2: Insulin-dependent.? Continue with basal and sliding scale insulin. Uncontrolled #hyponatremia: Chronic, at or higher than baseline presently #Hypothyroidism: Continue levothyroxine #peptic ulcer disease: Continue PPI #A-fib: Continue with diltiazem and metoprolol.? Anticoagulated with warfarin.? Check INR #Liver transplant: 2006.? Continue with steroids and tacrolimus.? Continue with Bactrim. #Heart failure preserved ejection fraction: Chronic.? EF 55% from 2D echocardiogram on June 10, 2022. #DVT ppx: SCDs as Coumadin not therapeutic at this time Celena Barber MD Time spent in the patient's overall evaluation,decision-making process, review of diagnostic data, adjustment of management, discussion with other providers, nursing nursing and ancillary staff involved in patient's care documentation, 30 Minutes Charges/Coding Visit Charges Inpatient E&M: 35396 Subs Hosp L2
[2022-11-15] MEDS: dilTIAZem 30 MG Tablet PO ×2 (14:05→20:37)
[2022-11-15 15:15] LABS: Erythrocyte Sedimentation Rate 77 mm/hr (0-20)
[2022-11-15 16:12] LABS: Procalcitonin 1.07 ng/mL (0.00-0.09)
[2022-11-15 16:36] LABS: Bedside Glucose 445 mg/dL (74-106)
[2022-11-15] MEDS: guaiFENesin 1,200 MG Tablet 1200 MG PO ×2 (17:30→20:37)
[2022-11-15] MEDS: 0.9% Normal Saline 1,000 ML 15 ML IV (17:40)
--- NOTE | 2022-11-15 18:44 | CASEMGMT ---
Social Work SW sent message via [employer] and called [facility], [place] that patient would not be returning today, possibly tomorrow or Thursday depending on medical status. Called ex- to notify, no answer. Dede Jason CLINIC MD ASSOCIATE, [employer]
--- NOTE | 2022-11-15 18:52 | PCM.RX.CS ---
Consult Pharmacy has been consulted to manage selected antiobiotic: Vancomycin Type of Consult: New start Suspected Infection: Pneumonia Labs: Sodium 134 mmol/L (136-145) L 11/15/22 06:25 Potassium 3.8 mmol/L (3.5-5.1) 11/15/22 06:25 Chloride 95 mmol/L (98-107) L 11/15/22 06:25 Carbon Dioxide 26.0 mmol/L (21.0-32.0) 11/15/22 06:25 Anion Gap 13 (5-15) 11/15/22 06:25 BUN 44 mg/dL (7-18) H 11/15/22 06:25 Creatinine 5.56 mg/dL (0.70-1.30) H 11/15/22 06:25 Est GFR (MDRD) Af Amer 13 mL/min (>60) L 11/15/22 06:25 Est GFR (MDRD) Non-Af 11 mL/min (>60) L 11/15/22 06:25 BUN/Creatinine Ratio 7.9 RATIO (10-20) L 11/15/22 06:25 Glucose 246 mg/dL (74-106) H 11/15/22 06:25 Microbiology: Microbiology 11/15/22 14:00 Nasal Secretion SARS-CoV-2 Antigen (Rapid) - Final 11/15/22 14:00 Mucosa - Nose Influenza Types A,B Direct FA (AGUSTIN) - Final 11/10/22 08:25 Blood Culture (Wb) - Anticubital Right Blood Culture - Final No growth in 5 days. 11/10/22 11:13 Blood Culture (Wb) - Anticubital Right Blood Culture - Preliminary No growth in 48 hours. 11/10/22 23:19 Urine, Clean Catch Legionella Antigen - Final 11/10/22 23:19 Urine, Clean Catch Streptococcus pneumoniae Antigen (M - Final Pharmacy Plan for Drug Dosing: NEW START IV VANCOMYCIN Consulting Physician: EVANGELINA Indication: PNEUMONIA Goal Trough: 15-20 MG/DL SrCr: 5.56 MG/DL (HD) CrCl: HD Comments: INITIAL STANDARD DOSE ORDERED OF 1500MG TO GIVE TODAY Vancomycin Dose: WILL NOT SCHEDULE DOSES PATIENT IS HD ([facility] SCHEDULE). WILL ENTER A X1 DOSE TODAY AND GET A RANDOM LEVEL PRIOR TO HD ON FRIDAY 11/17. Pending Level: 11/17/22 @ 0600 - RANDOM, PRE-HD Pharmacy Service will continue to monitor and adjust dosing as required.
[2022-11-15] MEDS: Ipratropium/Albuterol Sulfate 3 ML AMPUL.NEB INHALATION (19:02)
--- NOTE | 2022-11-15 19:10 | PN_ITS ---
Subjective Subjective Patient denies any problem from a GI standpoint. He denies any trouble swallowing. Objective Data Objective Data Vital Signs: Vital Signs Temp Pulse Resp BP Pulse Ox O2 Del Method O2 Flow Rate 97.9 F 80 14 103/63 95 Nasal Cannula 6 11/15/22 15:00 11/15/22 15:00 11/15/22 15:00 11/15/22 15:00 11/15/22 15:00 11/15/22 15:00 11/15/22 12:41 FiO2 40 11/14/22 21:30 Oxygen Flow Rate (L/min) [ 6 AMBULATING with Oxygen #1] Oxygen Flow Rate (L/min) [At 6 REST with Oxygen] Oxygen Flow Rate (L/min) 6 Oxygen Delivery Method Nasal Cannula Weight: 217 lb 2.485 oz Body Mass Index (BMI) 33.0 Intake & Output: Intake and Output for Last 24 Hours 11/13/22 11/14/22 11/15/22 23:59 23:59 23:59 Intake Total 332.25 / 332.25 530 / 530 Output Total 0 / 0 2500 / 2500 0 / 0 Balance 332.25 / 332.25 -2500 / -2500 530 / 530 Lab / Micro Data Result Diagrams: 11/15/22 06:25 11/15/22 06:25 Labs: Laboratory Results - last 24 hr 11/14/22 23:28: POC Glucose 429 H 11/15/22 05:54: POC Glucose 242 H 11/15/22 06:25: WBC 18.1 H, RBC 3.56 L, Hgb 11.8 L, Hct 36.0 L, MCV 101.1 H, MCH 33.1 H, MCHC 32.8, RDW Std Deviation 51.1 H, RDW Coeff of Kecia 13.8, Plt Count 256, MPV 9.5, Immature Gran % (Auto) 2.000 H, Neut % (Auto) 83.7 H, Lymph % (Auto) 6.2 L, Scott % (Auto) 7.7, Eos % (Auto) 0.1, Baso % (Auto) 0.3, Absolute Neuts (auto) 15.2 H, Absolute Lymphs (auto) 1.12, Nucleated RBC % 0 11/15/22 06:25: Sodium 134 L, Potassium 3.8, Chloride 95 L, Carbon Dioxide 26.0, Anion Gap 13, BUN 44 H, Creatinine 5.56 H, Estim Creat Clear Calc 10.94, Est GFR (MDRD) Af Amer 13 L, Est GFR (MDRD) Non-Af 11 L, BUN/Creatinine Ratio 7.9 L, Glucose 246 H, Calcium 9.3, Total Bilirubin 0.40, AST 14 L, ALT 15 L, Alkaline Phosphatase 92, Total Protein 6.9, Albumin 2.3 L, Globulin 4.6 H, Albumi n/Globulin Ratio 0.5 L 11/15/22 06:25: PT 24.2 H, INR 2.2 11/15/22 06:25: ESR 77 H 11/15/22 06:25: C-React Prot Ext Range 241.00 H 11/15/22 09:05: POC Glucose 224 H 11/15/22 11:06: POC Glucose 240 H 11/15/22 15:22: Procalcitonin 1.07 H 11/15/22 16:18: POC Glucose 445 H Micro: Microbiology 11/15/22 14:00 Nasal Secretion SARS-CoV-2 Antigen (Rapid) - Final 11/15/22 14:00 Mucosa - Nose Influenza Types A,B Direct FA (AGUSTIN) - Final 11/10/22 08:25 Blood Culture (Wb) - Anticubital Right Blood Culture - Final No growth in 5 days. 11/10/22 11:13 Blood Culture (Wb) - Anticubital Right Blood Culture - Preliminary No growth in 48 hours. 11/10/22 23:19 Urine, Clean Catch Legionella Antigen - Final 11/10/22 23:19 Urine, Clean Catch Streptococcus pneumoniae Antigen (M - Final Radiography Diagnostic Testing: Radiology Impression Chest CTA 11/15/22 11:19 IMPRESSION: Redemonstration of right upper lobe mass concerning for neoplasm. Increased bilateral pneumonia or pneumonitis. No evidence of pulmonary embolism. Electronically Signed: Marcelina Brown MD at 13:35 EDT , Physical Exam Narrative General: Alert, answers most questions appropriately HEENT: Atraumatic, normocephalic, Eyes: Anicteric, normal conjunctiva, extraocular movements grossly intact Neck: Supple Respiratory: Some slight wheezes in upper lobes, normal respiratory effort Cardiovascular: Regular rate and rhythm GI: Soft, nontender, nondistended Extremities: No edema Musculoskeletal: Moving all extremities Neuro: No overt focal neurological deficits Skin: Chronic skin changes on bilateral lower extremities, scabs on abdomen Psych: More cooperative today Assessment & Plan Assessment/Plan (1) Duodenal ulcer disease: (2) Achalasia of esophagus: PLAN: Plan 76-year-old gentleman with past medical history of 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 He underwent an upper endoscopy and was discovered to have findings consistent with achalasia with a stricture in the lower esophageal sphincter also with multiple rings in the distal esophagus consistent with eosinophilic esophagitis status post biopsies, dilation and injection with Botox. Also in his upper endoscopy was discovered to have multiple duodenal ulcers. He was placed on PPI therapy and octreotide for 24 hours. His hemoglobin seems to be stable and he is tolerating food without any problems. He will need to come back in the future for further Botox injections and dilation of his esophagus. Hopefully with PPI therapy he will have less problems with esopha geal dysphagia secondary to his eosinophilic esophagitis. Continue Protonix as previously ordered. Maintain 90 degree angle as much as possible and patient is eating. Charges/Coding Visit Charges Inpatient E&M: 55618 Subs Hosp L3
[2022-11-15 19:17] LABS: M R Staph aureus DNA By PCR Negative (Negative); Probe Check PASS; Specimen Processing Control PASS
[2022-11-15] MEDS: Miconazole Nitrate Cream 1 APPLIC TOPICAL (20:40)
[2022-11-15] MEDS: Zolpidem Tartrate 5 MG Tablet PO (20:41)
--- NOTE | 2022-11-15 22:07 | CPS ---
Put patient on bipap at 1902, since patient very lethargic. Walked by room at 1940 and patient was already off. Will attempt PAP therapy again once patient sleeps.
[2022-11-16] VITALS (14 sets, daily range): BP systolic 91–139; BP diastolic 50–83; PULSE 71–98; RESP 12–20; TEMP 36.5–36.9; O2SAT 95–99
--- NOTE | 2022-11-16 01:32 | CPS ---
Decreased PAP pressures to 14/8 to help with patient compliance.
[2022-11-16 03:49] LABS: Bedside Glucose 211 mg/dL (74-106)
[2022-11-16 05:44] LABS: Absolute Lymphocyte Count 1.42 X10^3/uL (0.83-4.51); Absolute Neutrophil Count 14.5 X10^3/uL (2.0-7.7); Basophil# 0.05 X10^3/uL; Basophil% 0.3 % (0-1); Eosinophil# 0.06 X10^3/uL; Eosinophils% 0.3 % (0-5); Hematocrit 33.3 % (40-54); Hemoglobin 11.2 g/dL (13.0-16.5); Lymphocyte # 1.42 X10^3/ul (0.83-4.51); Mean Corp Hgb Conc 33.6 g/dL (32-36); Mean Corpuscular Hgb 34.1 pg (27.0-32.0); Mean Corpuscular Volume 101.5 fL (80-94); Mean Platelet Vol. 10.1 fl (6.2-12.0); Monocyte# 1.29 X10^3/uL; Monocyte% 7.3 % (0-10); NRBC Flagged by Analyzer 0 % (0-5); Neutrophil # 14.46 X10^3/uL (2.7-7.7); Neutrophil % 81.3 % (47-70); Platelet Count 255 K/mm3 (150-450); RBC Distribution Width CV 14.3 % (11.6-14.6); RBC Distribution Width SD 52.8 fl (35.1-43.9); Red Blood Count 3.28 M/mm3 (4.6-6.2); White Blood Count 17.8 K/mm3 (4.4-11.0)
[2022-11-16 05:56] LABS: Erythrocyte Sedimentation Rate 109 mm/hr (0-20)
[2022-11-16 05:59] LABS: ALB/GLOB Ratio 0.5 RATIO (0.9-2.4); AST(SGOT) 12 U/L (15-37); Alanine Aminotransfer ALT/SGPT 16 U/L (16-61); Albumin, Serum 2.2 g/dL (3.2-5.0); Alkaline Phosphatase 95 U/L (45-117); Anion Gap 13 (5-15); BUN 60 mg/dL (7-18); BUN/Creat Ratio 8.6 RATIO (10-20); Calcium,Total 9.1 mg/dL (8.5-10.1); Chloride 92 mmol/L (98-107); Creatinine, Serum 6.99 mg/dL (0.70-1.30); EST Glomerular Filtration Rate 8 mL/min (>60); Est Glom Filt Rate - Afr Amer 10 mL/min (>60); Globulin 4.6 g/dL (2.2-4.2); Glucose 190 mg/dL (74-106); Potassium 4.2 mmol/L (3.5-5.1); Protein, Total 6.8 g/dL (6.4-8.2); Sodium Level 129 mmol/L (136-145)
[2022-11-16 06:06] LABS: International Normalized Ratio 2.2; Prothrombin Time (Protime)PT. 24.8 SECONDS (11.7-14.9)
[2022-11-16] MEDS: Levothyroxine 75 MCG Tablet PO (06:20)
[2022-11-16] MEDS: dilTIAZem 30 MG Tablet PO ×2 (06:20→22:38)
[2022-11-16] MEDS: Insulin Lispro 100 UNIT/ML INSULN.PEN SC ×4 (06:20→22:37)
[2022-11-16] MEDS: Benzonatate 100 MG Capsule PO (06:25)
[2022-11-16 07:20] LABS: Bedside Glucose 185 mg/dL (74-106)
[2022-11-16] MEDS: Ipratropium/Albuterol Sulfate 3 ML AMPUL.NEB INHALATION ×3 (07:27→19:25)
--- NOTE | 2022-11-16 08:52 | PN.HOSP_ITS ---
Reason for Visit Reason for Visit: Diagnoses Hypo-osmolality and hyponatremia (11/10/22) Hypokalemia (11/10/22) Encephalopathy, unspecified (11/10/22) Pneumonia, unspecified organism (11/10/22) Chronic obstructive pulmonary disease with (acute) exacerbation (11/10/22) Acute and chronic respiratory failure with hypoxia (11/10/22) Acute and chronic respiratory failure with hypercapnia (11/10/22) Achalasia of cardia (11/10/22) Duodenal ulcer, unspecified as acute or chronic, without hemorrhage or perforation (11/10/22) Alcoholic cirrhosis of liver without ascites (11/10/22) End stage renal disease (11/10/22) Other nonspecific abnormal finding of lung field (11/10/22) Dependence on renal dialysis (11/10/22) Subjective Subjective Patient is feeling somewhat better today and has had some decreasing O2 requirements Objective Data Objective Data Vital Signs: Vital Signs Temp Pulse Resp BP Pulse Ox O2 Del Method O2 Flow Rate 97.7 F L 98 18 139/83 H 96 Nasal Cannula 2 11/16/22 06:23 11/16/22 06:23 11/16/22 08:39 11/16/22 06:23 11/16/22 06:23 11/16/22 08:39 11/16/22 06:23 FiO2 30 11/15/22 23:25 Oxygen Flow Rate (L/min) [ 6 AMBULATING with Oxygen #1] Oxygen Flow Rate (L/min) [At 6 REST with Oxygen] Oxygen Flow Rate (L/min) 2 Oxygen Delivery Method Nasal Cannula Weight: 98.5 kg Body Mass Index (BMI) 33.0 Intake & Output: Intake and Output for Last 24 Hours 11/14/22 11/15/22 11/16/22 23:59 23:59 23:59 Intake Total 1315 / 1315 109 / 109 Output Total 2500 / 2500 0 / 0 Balance -2500 / -2500 1315 / 1315 109 / 109 Lab / Micro Data Result Diagrams: 11/16/22 04:45 11/16/22 04:45 Labs: Laboratory Results - last 24 hr 11/15/22 06:25: ESR 77 H 11/15/22 06:25: C-React Prot Ext Range 241.00 H 11/15/22 09:05: POC Glucose 224 H 11/15/22 11:06: POC Glucose 240 H 11/15/22 15:22: Procalcitonin 1.07 H 11/15/22 16:18: POC Glucose 445 H 11/15/22 17:40: MRSA (PCR) Negative 11/16/22 03:30: POC Glucose 211 H 11/16/22 04:45: WBC 17.8 H, RBC 3.28 L, Hgb 11.2 L, Hct 33.3 L, MCV 101.5 H, MCH 34.1 H, MCHC 33.6, RDW Std Deviation 52.8 H, RDW Coeff of Kecia 14.3, Plt Count 255, MPV 10.1, Immature Gran % (Auto) 2.800 H, Neut % (Auto) 81.3 H, Lymph % (Auto) 8.0 L, [place] % (Auto) 7.3, Eos % (Auto) 0.3, Baso % (Auto) 0.3, Absolute Neuts (auto) 14.5 H, Absolute Lymphs (auto) 1.42, Nucleated RBC % 0, ESR 109 H 11/16/22 04:45: Sodium 129 L, Potassium 4.2, Chloride 92 L, Carbon Dioxide 24.0, Anion Gap 13, BUN 60 H, Creatinine 6.99 H, Estim Creat Clear Calc 8.70, Est GFR (MDRD) Af Amer 10 L, Est GFR (MDRD) Non-Af 8 L, BUN/Creatinine Ratio 8.6 L, Glucose 190 H, Calcium 9.1, Total Bilirubin 0.50, AST 12 L, ALT 16, Alkaline Phosphatase 95, C-React Prot Ext Range 174.00 H, Total Protein 6.8, Albumin 2.2 L, Globulin 4.6 H, Albumin/Globulin Ratio 0.5 L 11/16/22 04:45: PT 24.8 H, INR 2.2 11/16/22 06:18: POC Glucose 185 H Micro: Microbiology 11/10/22 11:13 Blood Culture (Wb) - Anticubital Right Blood Culture - Final No growth in 5 days. 11/15/22 22:20 Sputum, Expectorated/Coughed Gram Stain - Preliminary 11/15/22 14:00 Mucosa - Nose Respiratory Panel (PCR) - Final 11/15/22 14:00 Nasal Secretion SARS-CoV-2 Antigen (Rapid) - Final 11/15/22 14:00 Mucosa - Nose Influenza Types A,B Direct FA (AGUSTIN) - Final 11/10/22 08:25 Blood Culture (Wb) - Anticubital Right Blood Culture - Final No growth in 5 days. 11/10/22 23:19 Urine, Clean Catch Legionella Antigen - Final 11/10/22 23:19 Urine, Clean Catch Streptococcus pneumoniae Antigen (M - Final Radiography Diagnostic Testing: Radiology Impression Chest CTA 11/15/22 11:19 IMPRESSION: Redemonstration of right upper lobe mass concerning for neoplasm. Increased bilateral pneumonia or pneumonitis. No evidence of pulmonary embolism. Electronically Signed: Marcelina Brown MD at 13:35 EDT , Physical Exam Narrative General: Alert, answers most questions appropriately HEENT: Atraumatic, normocephalic, Eyes: Anicteric, normal conjunctiva, extraocular movements grossly intact Neck: Supple Respiratory: No wheezes today, slightly coarse in bases, normal respiratory effort Cardiovascular: Regular rate GI: Soft, nontender, feels somewhat firm and patient reports he has not had bowel movement in several days Extremities: No significant edema Musculoskeletal: Moving all extremities Neuro: No overt focal neurological deficits Skin: Chronic skin changes on bilateral lower extremities, scabs on abdomen Psych: More cooperative today Assessment & Plan Assessment/Plan (1) Acute on chronic respiratory failure with hypoxia and hypercapnia: (2) COPD with acute exacerbation: (3) Pneumonia: (4) Lung mass: (5) Hyponatremia: (6) End stage renal disease: PLAN: Plan #Increased cough with green sputum and hypoxia with O2 sat of 89% on 6 L with no regular home O2 needs- 11/15 ACUTE HYPOXIA 2/2 TO HAP -Did report increased cough with sputum production and reports coughing up green sputum, chest x-ray officially pending -Did have increasing white blood cell count which may be due to steroids however it appears he chronically takes 20 mg of prednisone -Seems to have had a 2-day interruption in his chronic prednisone and was restarted yesterday though unsure if that short break with resumption would cause this level of reactivity -Given additional symptoms however will treat with Levaquin 750x1+250 daily for 6 days for dialysis dosing -11/14: Dosing changed to 500 every 48, sputum production improving, did have some wheezing and nebs currently as needed, will give additional treatment -11/15: Did have increased O2 requirements overnight, has not been on his Coumadin and has SCDs ordered however not wearing them at present, could be pn eumonia but will obtain CTA as with new malignancy is high risk for PE. Continue antibiotics at this time. Does not appear in any respiratory distress and was sitting comfortably but sat did drop to 89% on 6 L when up and moving -11/16: CTA negative for PE but did have bilateral infiltrates concerning for pneumonia with increased cough with sputum production increasing O2 requirements, will switch to vancomycin and Zosyn and has already been improving. Cultures pending but thus far 1 out of 2 blood cultures positive for gram-positive cocci. Sputum culture pending. Vitally improved after an tibiotics, also wheezing improved with scheduled nebs. Do not feel COPD exacerbation so did not escalate his prednisone dosing #Esophageal dysmotility/achalasia/duodenal ulcers -Seen by speech therapy and had little to no esophageal motility when swallowing pudding with only some clearance after swallowing liquid and barium swallow. They recommended GI consult -GI consult placed -Patient initially adamant on leaving and did not want to stay for inpatient evaluation however discussed risks and benefits and patient also had regurgitated food and liquid on his tray leading to higher suspicion that he needs evaluation prior to discharge -We will make n.p.o. at midnight -11/13: For EGD with Botox injection today -11/14: EGD with esophageal mucosal changes concerning for eosinophilic esophagitis, abnormal motility with establish achalasia injected with Botox, gastric antral vascular ectasia, portal hypertensive gastropathy. Noted multiple oozing duodenal ulcers with pigmented material that were injected and treated with heater probe. Discussed with gastroenterology, continue only aspirin or Coumadin, his Coumadin is going to be held we will continue aspirin at this time and after biopsy Coumadin can be resumed and aspirin can be held at discretion of provider. Also started on PPI twice daily -11/15: Continue current care #On admission had acute on chronic respiratory failure with hypoxia and hypercapnia secondary to acute exacerbation of COPD + PNA-now resolved but now has HAP as above -On admission ABG showed PCO2 of 51.3 with a PaO2 of 72 -He was placed on BiPAP in the ED and improved -Pulm following -Suspect 2/2 PNA -Was initially concern for a COPD and was started on bronchodilators and steroids, also had possible PNA seen on recent CT scan, on rocephin and azithro -11/12: Resolved, now on room air -11/15: Did have increasing O2 requirements, see #1 #Right upper lobe lung mass -Seen on CT scan 11/03 -Has outpatient biopsy scheduled 11/20, will need to hold anticoagulation 5 days prior -Follow-up with pulm outpatient #End-stage renal disease on HD -Nephrology following, continue management/dialysis per nephro #Acute encephalopathy?multifactorial -Due to acute hypoxia and hypercapnia with additional toxic component of gabapentin suspected -Continue to hold gabapentin #Diabetes mellitus type 2: Insulin-dependent.? Continue with basal and sliding scale insulin. Uncontrolled #hyponatremia: Chronic, at or higher than baseline presently #Hypothyroidism: Continue levothyroxine #peptic ulcer disease: Continue PPI #A-fib: Continue with diltiazem and metoprolol.? Anticoagulated with warfarin.? Check INR #Liver transplant: 2006.? Continue with steroids and tacrolimus.? Continue with Bactrim. #Heart failure preserved ejection fraction: Chronic.? EF 55% from 2D echocardiogram on June 10, 2022. #DVT ppx: SCDs as Coumadin not therapeutic at this time Celena Barber MD Time spent in the patient's overall evaluation,decision-making process, review of diagnostic data, adjustment of management, discussion with other providers, nursing nursing and ancillary staff involved in patient's care documentation, 30 Minutes Charges/Coding Visit Charges Inpatient E&M: 05164 Subs Hosp L2
[2022-11-16] MEDS: Fluticasone 0.05% 1 SPRAY NASAL.SRY 2 SPRAY NASAL (09:32)
[2022-11-16] MEDS: Calcitriol 0.25 MCG Capsule PO (09:33)
[2022-11-16] MEDS: predniSONE 20 MG Tablet PO (09:33)
[2022-11-16] MEDS: Aspirin E.C. 81 MG Tablet PO (09:33)
[2022-11-16] MEDS: guaiFENesin 1,200 MG Tablet 1200 MG PO ×2 (09:33→22:39)
[2022-11-16] MEDS: Tamsulosin HCl 0.4 MG Capsule PO ×2 (09:33→22:40)
[2022-11-16] MEDS: NYSTATIN 500,000 UNIT/5 ML UDC 500000 UNIT PO ×4 (09:33→22:40)
[2022-11-16] MEDS: Pantoprazole Sodium 40 MG Tablet PO ×2 (09:33→22:40)
[2022-11-16] MEDS: Metoprolol Tartrate 25 MG Tablet 12.5 MG PO ×2 (09:34→22:44)
[2022-11-16] MEDS: Tacrolimus 0.5 MG Capsule PO ×2 (09:50→22:41)
[2022-11-16] MEDS: Furosemide 20 MG Tablet PO (09:50)
[2022-11-16] MEDS: Insulin Glargine-YFGN 100 UNIT/ML Pen 50 UNIT SC (09:51)
[2022-11-16] MEDS: Senna/Docusate Sodium 1 Tablet 2 TABLET PO ×2 (09:51→22:39)
[2022-11-16] MEDS: 0.9% Saline Lock 10 ML Syringe IV (09:53)
[2022-11-16] MEDS: Insulin Lispro 100 UNIT/ML INSULN.PEN 6 UNIT SC (11:33)
[2022-11-16 11:40] LABS: Bedside Glucose > 500 mg/dL (74-106)
[2022-11-16] MEDS: Insulin Lispro 100 UNIT/ML INSULN.PEN 10 UNIT SC (12:50)
[2022-11-16 13:36] LABS: Anion Gap 17 (5-15); BUN 69 mg/dL (7-18); BUN/Creat Ratio 9.3 RATIO (10-20); Calcium,Total 8.8 mg/dL (8.5-10.1); Chloride 88 mmol/L (98-107); Creatinine, Serum 7.43 mg/dL (0.70-1.30); EST Glomerular Filtration Rate 8 mL/min (>60); Est Glom Filt Rate - Afr Amer 9 mL/min (>60); Estimated Creatinine Clearance 8.18 ml/min; Glucose 479 mg/dL (74-106); Sodium Level 124 mmol/L (136-145)
[2022-11-16 14:57] LABS: Bedside Glucose 422 mg/dL (74-106)
[2022-11-16 15:20] LABS: Lactic Acid 4.5 mmol/L (0.4-1.9)
--- NOTE | 2022-11-16 16:53 | PCM.HOSP.N ---
Hospitalist Note Went to bedside to evaluate patient given lactic acid and anion gap as well as slightly low pressures. Patient sitting up in chair in no acute distress, watching TV. Just got up and walked to the door and back and reported he was not feeling dizzy or weak or short of breath like he had been. Breathing overall improving, is no longer coughing. No abdominal pain, feels a little bit full and needs to have a bowel movement but denies other complaints. Has been feeling little bit down with his chronic medical problems but reports he has no thoughts of hurting himself and wants to live special he can feel better, we did discuss CODE STATUS and he was alert and oriented and able to answer my questions appropriately. He reported that he would not want chest compressions but would went intubated if necessary, CODE STATUS changed in computer. Advised if he has any concerns or problems to please let me know. Given his We will check BMPs every 4, trend lactic, give very small fluid bolus as he is on dialysis with minimal urine do not want to overload him however may be slightly dry. Acetone negative, do not think he is in DKA but given persistently elevated glucoses likely secondary to his infection will add nighttime glargine and increase sliding scale to high-dosing
[2022-11-16 17:31] LABS: Bedside Glucose 189 mg/dL (74-106)
[2022-11-16 17:58] LABS: Anion Gap 16 (5-15); BUN 72 mg/dL (7-18); BUN/Creat Ratio 9.6 RATIO (10-20); Chloride 90 mmol/L (98-107); Creatinine, Serum 7.48 mg/dL (0.70-1.30); EST Glomerular Filtration Rate 8 mL/min (>60); Est Glom Filt Rate - Afr Amer 9 mL/min (>60); Estimated Creatinine Clearance 8.13 ml/min; Glucose 153 mg/dL (74-106); Potassium 4.3 mmol/L (3.5-5.1); Sodium Level 127 mmol/L (136-145)
[2022-11-16 18:49] LABS: Reflex Lactate? Y
[2022-11-16 20:20] LABS: Lactic Acid 2.4 mmol/L (0.4-1.9)
[2022-11-16 21:43] LABS: Anion Gap 15 (5-15); BUN 72 mg/dL (7-18); BUN/Creat Ratio 9.4 RATIO (10-20); Calcium,Total 8.7 mg/dL (8.5-10.1); Chloride 89 mmol/L (98-107); Creatinine, Serum 7.63 mg/dL (0.70-1.30); EST Glomerular Filtration Rate 7 mL/min (>60); Est Glom Filt Rate - Afr Amer 9 mL/min (>60); Estimated Creatinine Clearance 7.97 ml/min; Glucose 212 mg/dL (74-106); Potassium 4.6 mmol/L (3.5-5.1); Sodium Level 124 mmol/L (136-145)
[2022-11-16] MEDS: Zolpidem Tartrate 5 MG Tablet PO (22:37)
[2022-11-16] MEDS: Insulin Glargine-YFGN 100 UNIT/ML Pen SC (22:38)
[2022-11-16] MEDS: Miconazole Nitrate Cream 1 APPLIC TOPICAL (22:42)
[2022-11-16 23:13] LABS: Bedside Glucose 245 mg/dL (74-106)
[2022-11-16] MEDS: Albuterol 2.5 MG/3 ML VIAL.NEB. INHALATION (23:17)
[2022-11-17] VITALS (10 sets, daily range): BP systolic 94–118; BP diastolic 51–72; PULSE 71–113; RESP 12–18; TEMP 36.6–37.1; O2SAT 93–100
[2022-11-17 01:42] LABS: Anion Gap 16 (5-15); BUN 73 mg/dL (7-18); BUN/Creat Ratio 9.6 RATIO (10-20); Chloride 89 mmol/L (98-107); Creatinine, Serum 7.64 mg/dL (0.70-1.30); EST Glomerular Filtration Rate 7 mL/min (>60); Est Glom Filt Rate - Afr Amer 9 mL/min (>60); Estimated Creatinine Clearance 7.96 ml/min; Glucose 202 mg/dL (74-106); Potassium 4.4 mmol/L (3.5-5.1); Sodium Level 125 mmol/L (136-145)
[2022-11-17 05:43] LABS: Absolute Neutrophil Count 14.2 X10^3/uL (2.0-7.7); Basophil# 0.05 X10^3/uL; Basophil% 0.3 % (0-1); Eosinophil# 0.05 X10^3/uL; Eosinophils% 0.3 % (0-5); Hematocrit 29.4 % (40-54); Hemoglobin 9.9 g/dL (13.0-16.5); Lymphocyte % 8.1 % (19-41); Mean Corp Hgb Conc 33.7 g/dL (32-36); Mean Corpuscular Hgb 33.3 pg (27.0-32.0); Mean Platelet Vol. 9.9 fl (6.2-12.0); Monocyte# 1.07 X10^3/uL; Monocyte% 6.2 % (0-10); NRBC Flagged by Analyzer 0 % (0-5); Neutrophil # 14.23 X10^3/uL (2.7-7.7); Neutrophil % 82.3 % (47-70); Platelet Count 242 K/mm3 (150-450); RBC Distribution Width CV 13.9 % (11.6-14.6); RBC Distribution Width SD 50.7 fl (35.1-43.9); Red Blood Count 2.97 M/mm3 (4.6-6.2); White Blood Count 17.3 K/mm3 (4.4-11.0)
[2022-11-17] MEDS: dilTIAZem 30 MG Tablet PO (05:48)
[2022-11-17] MEDS: Levothyroxine 75 MCG Tablet PO (05:48)
[2022-11-17 05:54] LABS: International Normalized Ratio 1.9; Prothrombin Time (Protime)PT. 22.1 SECONDS (11.7-14.9)
[2022-11-17 06:11] LABS: Vancomycin, Random Level 15.9 ug/mL (0.0-15.0)
[2022-11-17 06:32] LABS: Erythrocyte Sedimentation Rate 69 mm/hr (0-20)
[2022-11-17 06:40] LABS: ALB/GLOB Ratio 0.5 RATIO (0.9-2.4); AST(SGOT) 16 U/L (15-37); Alanine Aminotransfer ALT/SGPT 16 U/L (16-61); Albumin, Serum 2.2 g/dL (3.2-5.0); Alkaline Phosphatase 93 U/L (45-117); Anion Gap 14 (5-15); BUN 77 mg/dL (7-18); BUN/Creat Ratio 9.9 RATIO (10-20); Calcium,Total 8.6 mg/dL (8.5-10.1); Chloride 91 mmol/L (98-107); Creatinine, Serum 7.78 mg/dL (0.70-1.30); EST Glomerular Filtration Rate 7 mL/min (>60); Est Glom Filt Rate - Afr Amer 9 mL/min (>60); Estimated Creatinine Clearance 7.81 ml/min; Globulin 4.2 g/dL (2.2-4.2); Glucose 123 mg/dL (74-106); Potassium 4.2 mmol/L (3.5-5.1); Protein, Total 6.4 g/dL (6.4-8.2); Sodium Level 125 mmol/L (136-145)
--- NOTE | 2022-11-17 07:11 | PCM.PN.HOSP ---
Reason for Visit Reason for Visit: Diagnoses Hypo-osmolality and hyponatremia (11/10/22) Hypokalemia (11/10/22) Encephalopathy, unspecified (11/10/22) Pneumonia, unspecified organism (11/10/22) Chronic obstructive pulmonary disease with (acute) exacerbation (11/10/22) Acute and chronic respiratory failure with hypoxia (11/10/22) Acute and chronic respiratory failure with hypercapnia (11/10/22) Achalasia of cardia (11/10/22) Duodenal ulcer, unspecified as acute or chronic, without hemorrhage or perforation (11/10/22) Alcoholic cirrhosis of liver without ascites (11/10/22) End stage renal disease (11/10/22) Other nonspecific abnormal finding of lung field (11/10/22) Dependence on renal dialysis (11/10/22) Subjective Subjective Patient overnight with no acute events per self and per nursing report. He does state he feels as though he is breathing has mildly improved. Discussed that patient is still on broad-spectrum antibiotic therapy with IV Zosyn and IV vancomycin with 11/15/2022 blood culture x2 with Staphylococcus aureus awaiting for sensitivity results. 11/10/2022 urine strep and Legionella negative. SARS COVID rapid negative. Influenza antigen negative. Full respiratory viral panel negative. 11/15/2022 Gram stain sputum with preliminary respiratory culture noting 3+ Staphylococcus aureus with speciation and sensitivities pending. Patient is extremely eager for discharge back to skilled facility. Patient over the last several days has had extremely labile blood sugars secondary to likely prednisone therapy. He was treated initially for also concurrent COPD exacerbation however his steroids were de-escalated to 20 mg daily, given ongoing difficulties with his blood sugars we will attempt to de-escalate off which patient is amenable. Patient denies fevers, chills, nausea, emesis, abdominal pain, chest pain or dyspnea. Objective Data Objective Data Vital Signs: Vital Signs Temp Pulse Resp BP Pulse Ox O2 Del Method O2 Flow Rate 97.8 F 76 14 118/72 98 Nasal Cannula 2 11/17/22 05:00 11/17/22 05:00 11/17/22 05:00 11/17/22 05:00 11/17/22 05:00 11/17/22 05:00 11/17/22 05:00 FiO2 30 11/17/22 02:55 Oxygen Flow Rate (L/min) [ 6 AMBULATING with Oxygen #1] Oxygen Flow Rate (L/min) [At 6 REST with Oxygen] Oxygen Flow Rate (L/min) 2 Oxygen Delivery Method Nasal Cannula Weight: 217 lb 2.485 oz Body Mass Index (BMI) 33.0 Intake & Output: Intake and Output for Last 24 Hours 11/15/22 11/16/22 11/17/22 23:59 23:59 23:59 Intake Total 1315 / 1315 1963 520 / 520 Output Total 0 / 0 0 / 0 0 / 0 Balance 5 / [id number] 520 / 520 Lab / Micro Data Result Diagrams: 11/17/22 14:20 11/17/22 05:00 Labs: Laboratory Results - last 24 hr 11/16/22 06:18: POC Glucose 185 H 11/16/22 11:19: POC Glucose > 500 H* 11/16/22 13:10: Sodium 124 L, Potassium 4.0, Chloride 88 L, Carbon Dioxide 19.0 L, Anion Gap 17 H, BUN 69 H, Creatinine 7.43 H*, Estim Creat Clear Calc 8.18, Est GFR (MDRD) Af Amer 9 L, Est GFR (MDRD) Non-Af 8 L, BUN/Creatinine Ratio 9.3 L, Glucose 479 H*, Calcium 8.8 11/16/22 14:34: POC Glucose 422 H 11/16/22 14:45: Acetone Level NEGATIVE 11/16/22 14:45: Lactic Acid 4.5 H* 11/16/22 16:59: POC Glucose 189 H 11/16/22 17:18: Sodium 127 L, Potassium 4.3, Chloride 90 L, Carbon Dioxide 21.0, Anion Gap 16 H, BUN 72 H, Creatinine 7.48 H*, Estim Creat Clear Calc 8.13, Est GFR (MDRD) Af Amer 9 L, Est GFR (MDRD) Non-Af 8 L, BUN/Creatinine Ratio 9.6 L, Glucose 153 H, Calcium 9.0 11/16/22 19:18: Lactic Acid 2.4 H* 11/16/22 21:09: Sodium 124 L, Potassium 4.6, Chloride 89 L, Carbon Dioxide 20.0 L, Anion Gap 15, BUN 72 H, Creatinine 7.63 H*, Estim Creat Clear Calc 7.97, Est GFR (MDRD) Af Amer 9 L, Est GFR (MDRD) Non-Af 7 L, BUN/Creatinine Ratio 9.4 L, Glucose 212 H, Calcium 8.7 11/16/22 22:33: POC Glucose 245 H 11/17/22 01:11: Sodium 125 L, Potassium 4.4, Chloride 89 L, Carbon Dioxide 20.0 L, Anion Gap 16 H, BUN 73 H, Creatinine 7.64 H*, Estim Creat Clear Calc 7.96, Est GFR (MDRD) Af Amer 9 L, Est GFR (MDRD) Non-Af 7 L, BUN/Creatinine Ratio 9.6 L, Glucose 202 H, Calcium 9.0 11/17/22 05:00: WBC 17.3 H, RBC 2.97 L, Hgb 9.9 L, Hct 29.4 L, MCV 99.0 H, MCH 33.3 H, MCHC 33.7, RDW Std Deviation 50.7 H, RDW Coeff of [place] 13.9, Plt Count 242, MPV 9.9, Immature Gran % (Auto) 2.800 H, Neut % (Auto) 82.3 H, Lymph % (Auto) 8.1 L, [place] % (Auto) 6.2, Eos % (Auto) 0.3, Baso % (Auto) 0.3, Absolute Neuts (auto) 14.2 H, Absolute Lymphs (auto) 1.40, Nucleated RBC % 0, ESR 69 H 11/17/22 05:00: Sodium 125 L, Potassium 4.2, Chloride 91 L, Carbon Dioxide 20.0 L, Anion Gap 14, BUN 77 H, Creatinine 7.78 H*, Estim Creat Clear Calc 7.81, Est GFR (MDRD) Af Amer 9 L, Est GFR (MDRD) Non-Af 7 L, BUN/Creatinine Ratio 9.9 L, Glucose 123 H, Calcium 8.6, Total Bilirubin 0.70, AST 16, ALT 16, Alkaline Phosphatase 93, C-React Prot Ext Range 128.00 H, Total Protein 6.4, Albumin 2.2 L, Globulin 4.2, Albumin/Globulin Ratio 0.5 L 11/17/22 05:00: PT 22.1 H, INR 1.9 11/17/22 05:00: Random Vancomycin 15.9 H Micro: Microbiology 11/15/22 22:20 Sputum, Expectorated/Coughed Gram Stain - Final 11/15/22 15:48 Blood Culture (Wb) - Right Hand Blood Culture - Preliminary 11/15/22 15:22 Blood Culture (Wb) - Right Wrist Blood Culture - Preliminary 11/10/22 11:13 Blood Culture (Wb) - Anticubital Right Blood Culture - Final No growth in 5 days. 11/15/22 14:00 Mucosa - Nose Respiratory Panel (PCR) - Final 11/15/22 14:00 Nasal Secretion SARS-CoV-2 Antigen (Rapid) - Final 11/15/22 14:00 Mucosa - Nose Influenza Types A,B Direct FA (AGUSTIN) - Final 11/10/22 08:25 Blood Culture (Wb) - Anticubital Right Blood Culture - Final No growth in 5 days. 11/10/22 23:19 Urine, Clean Catch Legionella Antigen - Final 11/10/22 23:19 Urine, Clean Catch Streptococcus pneumoniae Antigen (M - Final Physical Exam Narrative Physical Examination: General: Awake, alert, oriented x 3 and cooperative, seated upright in the PCU bedside chair, no acute distress. Skin: Normal color, normal turgor, no icterus, no cyanosis except for occasional staged ecchymoses and bilateral lower extremity stasis changes. HEENT: AT/NC, EOMI, PERRLA, MMM. Lungs: Notably diminished, greater bases, moderate effort, no evidence any distress, no rales, ronchi or wheezing. Heart: Currently regular rate and rhythm; no gallop, rub audible. Abdomen: Soft, obese, NTTP, ND, distant BS. Extremities: No cyanosis, no clubbing, mild peripheral edema, left upper extremity with aVF with positive thrill. Neurological: Patient awake, alert, oriented as noted, cognitive function intact; pupils equally reactive to light and accommodation, cranial nerves II-XII grossly normal, moving all 4 extremities, no focal deficits, strength improved but still remains moderately globally decreased. Psychiatric: Affect appears fatigued otherwise normal, no acute evidence of depressive or anxiety feelings. Assessment & Plan Assessment/Plan (1) COPD with acute exacerbation: PLAN: Plan The patient is a 76 y/o M w/ PMHx: Obesity, COPD, Diabetes mellitus type II, Diastolic CHF, HTN, HLD, Chronic anemia/AOCD, ESRD on HD, Chronic Hyponatremis, Esophageal alcalasia, GERD w/ Hx GI bleed, Hx WOLFF Cirrhosis s/o orthotopic liver transplant, ANCA associated vasculitis, Anxiety and Depression, Hypothyroidism, Gout, BPH who presents to the [facility] ED on 11/10/22 secondary to increased fatigue, malaise, weakness and falls with acute dyspnea placed on BiPAP emergently in the ED with reportedly recent left lower lobe infiltrate with recent outpatient administration of levofloxacin. #1. Acute on Chronic Hypoxic and Hypercapnic Respiratory failure secondary to Acute on Chronic COPD Exacerbation and Pneumonia, Possible GN/GP Organism failing outpatient initial abx therapy (Staph aureus preliminary on Cx) complicated by Staph Aureus preliminary Bacteremia: Patient upon presentation with ABG with PCO2 51.3 and PaO2 72, initiated on BiPAP in the ED with pulmonary consultation, felt concurrently COPD and pneumonia, initiated per ED on azithromycin and Rocephin. 11/10/2022 chest x-ray with a stable 5.6 cm mass within the right upper lung suspicious for malignancy with cardiomegaly. 11/13/2022 chest x-ray with increased consolidative retrocardiac opacification possibly pneumonia versus atelectasis and stable right upper lobe mass. 11/15/2022 CTPA with redemonstration right upper lobe mass concerning for neoplasm, increased bilateral pneumonia or pneumonitis with no evidence of PE. Upon admission broadened antibiotic therapy given his history with IV vancomycin and Zosyn, currently maintained on IV cefepime, azithromycin and IV vancomycin of note, initially maintained on IV Solu-Medrol eventually weaned, on 11/16/2022 patient on prednisone 20 mg daily, given significant hypoglycemic issues and clinical improvement 11/17/2022 de-escalated to off. Do suspect that patient steroids are likely the etiology for his persistent leukocytosis, will continue to monitor CBC, procalcitonin of note 11/17/2022 0.78 but still on antibiotic therapy as noted. We will repeat blood culture times 11/17/22 with still awaiting full speciation and sensitivity from 11/15/2022 cultures of note. #2. Esophageal achalasia as well as concurrent duodenal ulcer disease w/ Chronic Macrocytic anemia/AOCD with history of WOLFF Cirrhosis s/o orthotopic liver transplant, ANCA associated vasculitis: 11/11/2022 modified barium swallow with evidence of mild pharyngoesophageal dysphagia with recommendation for mechanical soft texture, thin liquids. 11/13/[address] Salinas with esophageal mucosal changes consistent with eosinophilic esophagitis which was biopsied, evidence of abnormal esophageal motility with an established history of achalasia with injection performed with botulinum toxin, gastric antral vascular ectasia, medium sized hiatal hernia as well as portal hypertensive gastropathy and multiple oozing duodenal ulcers with pigmented material which were injected and treated with a heater probe with recommended repeat endoscopy in 2 months. Will continue protonix regimen, monitor H+H, will need continued outpatient evaluations and botox intervention. Treated with octreotide x 24 hours additionally. Diet advanced without issue. #3. Diabetes mellitus type II with hyperglycemia: Hold oral home regimen, recent BID insulin reigmen adjustments, had notable hyperglycemia overnight, repeat BMPs had been obtained to assure no DKA, suspect likely steroid related, as noted d/c steroids with close continued monitoring, had been decreased already to 20 mg prednisone daily, acetone negative, maintained on ADA diet, accu checks w/ ISS. Will defer further regimen changes until ascertain trend off steroids. #4. Acute Encephalopathy, Multifactorial: Noted during admission, felt secondary to his acute presentation with infectious presentation as well as medications in addition to hypoxia and hypercapnia, gabapentin held, clinically improved therefore we will continue to monitor and pending neuropathy may consider gabapentin restart. #5. ESRD: On HD, Nephrology consulted and following, HD M, T, W, F regimen, HD last 11/17/22 without reported issue. #6. Chronic Hyponatremia: Unclear specific etiology, admission sodium 128 but is certainly vacillated and ranges from 120s to low 130s, as noted planning upcoming biopsy given lung mass and certainly this could be related, will continue to monitor CMP. #7. Chronic Diastolic CHF: Chronic, appears currently compensated, ongoing HD as noted, recent 05/2022 ECHO with EF 55%, Coumadin currently held for upcoming biopsy, continued on aspirin therapy however, continue home metoprolol as well as Lasix regimen, not on JOHN inhibitor/ARB nor statin therapy, medication reconciliation repeat requested to be cautious. Will judiciously hydrate if necessary. #8. History of liver transplant: We will continue patient home tacrolimus, Bactrim home regimen. Verified with patient that he is not on any chronic steroid regimen as his prednisone was de-escalated to off given significant hyperglycemia related and clinical improvement. #9. Hypertension: Continue home regimen including Lasix, metoprolol, PRN hydralazine. Will ask for reverification of home medication regimen as it is unclear if patient is actually also on Cardizem. #10. Hyperlipidemia: Not on statin therapy, defer to outpatient. #11. Anxiety and depression: We will restart patient home sertraline regimen. We will ask for reverification of home regimen as it is unclear if patient is actually also on bupropion. #12. Hypothyroidism: We will continue patient home levothyroxine regimen. #13. GERD w/ PUD, recently as noted duondenal ulcers, see above: We will maintain on PPI. #14. BPH: We will continue patient home Flomax regimen. #15. Gout: We will continue patient home allopurinol regimen. #16. DVT prophylaxis: Coumadin currently on hold for possible outpatient biopsy. SCDs. #17. CODE STATUS: DNR CCA, with intubation allowed. Admission Evaluation Time spent evaluating chart, patient history, patient evaluation, care planning and discussion with specialists: 50 minutes. Charges/Coding Visit Charges Inpatient E&M: 15247 [facility] L3
[2022-11-17] MEDS: Ipratropium/Albuterol Sulfate 3 ML AMPUL.NEB INHALATION ×3 (07:30→19:55)
[2022-11-17 07:52] LABS: Procalcitonin 0.78 ng/mL (0.00-0.09)
[2022-11-17] MEDS: Aspirin E.C. 81 MG Tablet PO (08:27)
[2022-11-17] MEDS: Fluticasone 0.05% 1 SPRAY NASAL.SRY 2 SPRAY NASAL (08:27)
[2022-11-17] MEDS: Tamsulosin HCl 0.4 MG Capsule PO ×2 (08:27→21:19)
[2022-11-17] MEDS: guaiFENesin 1,200 MG Tablet 1200 MG PO ×2 (08:28→21:18)
[2022-11-17] MEDS: Pantoprazole Sodium 40 MG Tablet PO ×2 (08:28→21:19)
[2022-11-17] MEDS: NYSTATIN 500,000 UNIT/5 ML UDC 500000 UNIT PO ×4 (08:28→21:17)
[2022-11-17] MEDS: Tacrolimus 0.5 MG Capsule PO ×2 (08:28→21:18)
[2022-11-17] MEDS: Calcitriol 0.25 MCG Capsule PO (08:28)
[2022-11-17] MEDS: 0.9% Saline Lock 10 ML Syringe IV ×2 (08:30→10:26)
[2022-11-17 08:51] LABS: Bedside Glucose 98 mg/dL (74-106)
[2022-11-17 10:07] LABS: Hematocrit 29.6 % (40-54); Hemoglobin 10.1 g/dL (13.0-16.5)
[2022-11-17] MEDS: Insulin Glargine-YFGN 100 UNIT/ML Pen 50 UNIT SC (10:19)
--- NOTE | 2022-11-17 10:46 | NURSING ---
Returns from testing. Significant other remains at bedside
[2022-11-17] MEDS: Insulin Lispro 100 UNIT/ML INSULN.PEN SC ×2 (11:57→17:06)
[2022-11-17 12:21] LABS: Bedside Glucose 159 mg/dL (74-106)
--- NOTE | 2022-11-17 13:10 | DIALYSIS ---
Hemodialysis x3.5 hours completed at 1300 on a 3K bath, tolerated well, slight confusion during treatment, UF 2000mL, CritLine profile B, symptomatic hypotension (SBP 80s) with greater UF goals (becomes restless), accessed via LFA AVF using 16G needles, AVF worked well, still feels small, patient forgetful, uses access arm needing close monitoring throughout tx and reminding to not use access arm to itch head and grab coffee cup, needles pulled post tx and stasis achieved without issue
[2022-11-17] MEDS: dilTIAZem 60 MG Tablet PO (13:22)
[2022-11-17 14:48] LABS: Hematocrit 32.6 % (40-54); Hemoglobin 10.7 g/dL (13.0-16.5)
[2022-11-17] MEDS: Smz/Tmp Ds Tablet 1 TABLET PO (17:07)
[2022-11-17 17:28] LABS: Bedside Glucose 230 mg/dL (74-106)
[2022-11-17] MEDS: Acetaminophen 500 MG Tablet PO (18:36)
--- NOTE | 2022-11-17 19:05 | PCM.RX.CS ---
Consult Pharmacy has been consulted to manage selected antiobiotic: Vancomycin Type of Consult: Follow-up Suspected Infection: Pneumonia Labs: Sodium 125 mmol/L (136-145) L 11/17/22 05:00 Potassium 4.2 mmol/L (3.5-5.1) 11/17/22 05:00 Chloride 91 mmol/L (98-107) L 11/17/22 05:00 Carbon Dioxide 20.0 mmol/L (21.0-32.0) L 11/17/22 05:00 Anion Gap 14 (5-15) 11/17/22 05:00 BUN 77 mg/dL (7-18) H 11/17/22 05:00 Creatinine 7.78 mg/dL (0.70-1.30) H* 11/17/22 05:00 Est GFR (MDRD) Af Amer 9 mL/min (>60) L 11/17/22 05:00 Est GFR (MDRD) Non-Af 7 mL/min (>60) L 11/17/22 05:00 BUN/Creatinine Ratio 9.9 RATIO (10-20) L 11/17/22 05:00 Glucose 123 mg/dL (74-106) H 11/17/22 05:00 Random Vancomycin 15.9 ug/mL (0.0-15.0) H 11/17/22 05:00 Microbiology: Microbiology 11/15/22 15:48 Blood Culture (Wb) - Right Hand Blood Culture - Preliminary Staphylococcus aureus 11/15/22 15:22 Blood Culture (Wb) - Right Wrist Blood Culture - Preliminary Staphylococcus aureus 11/15/22 22:20 Sputum, Expectorated/Coughed Gram Stain - Final 11/15/22 22:20 Sputum, Expectorated/Coughed Respiratory Culture - Preliminary Staphylococcus aureus 11/10/22 11:13 Blood Culture (Wb) - Anticubital Right Blood Culture - Final No growth in 5 days. 11/15/22 14:00 Mucosa - Nose Respiratory Panel (PCR) - Final 11/15/22 14:00 Nasal Secretion SARS-CoV-2 Antigen (Rapid) - Final 11/15/22 14:00 Mucosa - Nose Influenza Types A,B Direct FA (AGUSTIN) - Final 11/10/22 08:25 Blood Culture (Wb) - Anticubital Right Blood Culture - Final No growth in 5 days. 11/10/22 23:19 Urine, Clean Catch Legionella Antigen - Final 11/10/22 23:19 Urine, Clean Catch Streptococcus pneumoniae Antigen (M - Final Goal Trough: 15-20 mcg/mL Pharmacy Plan for Drug Dosing: VANCOMYCIN LEVEL RECEIVED Current Vancomycin Dose: pt renally dosed (dialysis pt) Number of Doses Received: x1 1500mg dose on 11/15/22 Vancomycin Level: 15.9 Hours Since Last Dose: Renal Function: hd dosing (thu, , thu, thursday) Renal Function Trend: Lab/Micro: Vancomycin Plan/Comments: recommend a x1 750mg dose post dialysis on 11/17/22. random level prior to next dialysis session Pending Level: 11/18/22 at 0600 Pharmacy Service will continue to monitor and adjust dosing as required. Follow-Up Labs: Trough Vancomycin - 11/18/22 at 0600
[2022-11-17] MEDS: Miconazole Nitrate Cream 1 APPLIC TOPICAL (21:18)
[2022-11-17] MEDS: Senna/Docusate Sodium 1 Tablet 2 TABLET PO (21:19)
[2022-11-17] MEDS: Metoprolol Tartrate 25 MG Tablet 12.5 MG PO (21:19)
[2022-11-17] MEDS: Insulin Glargine-YFGN 100 UNIT/ML Pen SC (21:27)
[2022-11-17] MEDS: Sertraline 100 MG Tablet PO (22:17)
[2022-11-18] VITALS (12 sets, daily range): BP systolic 106–137; BP diastolic 52–95; PULSE 82–108; RESP 16–22; TEMP 36.3–36.9; O2SAT 90–96
[2022-11-18] MEDS: Mag Hydrox/Al Hydrox/Simeth 30 ML UDC PO (00:31)
[2022-11-18] MEDS: 0.9% Saline Lock 10 ML Syringe IV (00:31)
[2022-11-18] MEDS: Ondansetron ODT 4 MG Tablet PO (01:07)
[2022-11-18 01:14] LABS: Bedside Glucose 142 mg/dL (74-106)
[2022-11-18 01:58] LABS: Troponin-I HS 60 pg/mL (3.0-78.0)
[2022-11-18 05:21] LABS: Absolute Lymphocyte Count 1.21 X10^3/uL (0.83-4.51); Absolute Neutrophil Count 9.8 X10^3/uL (2.0-7.7); Basophil# 0.02 X10^3/uL; Basophil% 0.2 % (0-1); Eosinophil# 0.05 X10^3/uL; Eosinophils% 0.4 % (0-5); Hematocrit 30.2 % (40-54); Hemoglobin 10.1 g/dL (13.0-16.5); Lymphocyte # 1.21 X10^3/ul (0.83-4.51); Lymphocyte % 9.2 % (19-41); Mean Corp Hgb Conc 33.4 g/dL (32-36); Mean Corpuscular Hgb 33.7 pg (27.0-32.0); Mean Corpuscular Volume 100.7 fL (80-94); Mean Platelet Vol. 9.5 fl (6.2-12.0); Monocyte# 1.51 X10^3/uL; Monocyte% 11.5 % (0-10); NRBC Flagged by Analyzer 0 % (0-5); Neutrophil # 9.78 X10^3/uL (2.7-7.7); Neutrophil % 74.5 % (47-70); POSITIVE DIFFERENTIAL YES; Platelet Count 208 K/mm3 (150-450); RBC Distribution Width SD 51.4 fl (35.1-43.9); White Blood Count 13.1 K/mm3 (4.4-11.0)
[2022-11-18 05:27] LABS: Differential Indicated SCAN CRITERIA MET
[2022-11-18 05:42] LABS: International Normalized Ratio 1.4
[2022-11-18 05:45] LABS: Vancomycin, Random Level 17.5 ug/mL (0.0-15.0)
[2022-11-18 05:46] LABS: ALB/GLOB Ratio 0.5 RATIO (0.9-2.4); AST(SGOT) 20 U/L (15-37); Alanine Aminotransfer ALT/SGPT 20 U/L (16-61); Albumin, Serum 2.1 g/dL (3.2-5.0); Alkaline Phosphatase 81 U/L (45-117); Anion Gap 8 (5-15); BUN 40 mg/dL (7-18); BUN/Creat Ratio 7.6 RATIO (10-20); Calcium,Total 8.6 mg/dL (8.5-10.1); Chloride 95 mmol/L (98-107); Creatinine, Serum 5.24 mg/dL (0.70-1.30); EST Glomerular Filtration Rate 11 mL/min (>60); Est Glom Filt Rate - Afr Amer 14 mL/min (>60); Globulin 4.2 g/dL (2.2-4.2); Glucose 87 mg/dL (74-106); Potassium 4.4 mmol/L (3.5-5.1); Protein, Total 6.3 g/dL (6.4-8.2); Sodium Level 130 mmol/L (136-145)
[2022-11-18 06:05] LABS: Differential Comment SCANNED
--- NOTE | 2022-11-18 06:29 | PCM.PN.HOSP ---
Reason for Visit Reason for Visit: Diagnoses Hypo-osmolality and hyponatremia (11/10/22) Hypokalemia (11/10/22) Encephalopathy, unspecified (11/10/22) Pneumonia, unspecified organism (11/10/22) Chronic obstructive pulmonary disease with (acute) exacerbation (11/10/22) Acute and chronic respiratory failure with hypoxia (11/10/22) Acute and chronic respiratory failure with hypercapnia (11/10/22) Achalasia of cardia (11/10/22) Duodenal ulcer, unspecified as acute or chronic, without hemorrhage or perforation (11/10/22) Alcoholic cirrhosis of liver without ascites (11/10/22) End stage renal disease (11/10/22) Other nonspecific abnormal finding of lung field (11/10/22) Dependence on renal dialysis (11/10/22) Subjective Subjective Patient with no acute events overnight per self and per nursing report. He does feel as though he is breathing with greater ease and has less coughing today. He is upright in the chair and still remains eager for discharge. Discussed that we are awaiting his final cultures to assure that there is no growth. Did discuss with radiology upcoming planned biopsy and noted to their service that he would need to be negative on his blood cultures before this could be considered. Patient evaluated this a.m. for his MSSA bacteremia with suspected pneumonia as a source as sputum is also demonstrating MSSA, antibiotics narrowed to Ancef with recommendation that once biopsy is obtained that pathology be obtained as well as aerobic/anaerobic/fungal/AFB. Objective Data Objective Data Vital Signs: Vital Signs Temp Pulse Resp BP Pulse Ox O2 Del Method O2 Flow Rate 98.2 F 108 H 22 H 137/95 H 96 Room Air 2 11/18/22 00:57 11/18/22 00:57 11/18/22 00:57 11/18/22 00:57 11/18/22 00:57 11/18/22 01:00 11/17/22 14:49 FiO2 30 11/17/22 02:55 Oxygen Flow Rate (L/min) [ 6 AMBULATING with Oxygen #1] Oxygen Flow Rate (L/min) [At 6 REST with Oxygen] Oxygen Flow Rate (L/min) 2 Oxygen Delivery Method Room Air Weight: 217 lb 2.485 oz Body Mass Index (BMI) 33.0 Intake & Output: Intake and Output for Last 24 Hours 11/16/22 11/17/22 11/18/22 23:59 23:59 23:59 Intake Total 1963 265 / 265 Output Total 0 0 1999 0 / 0 Balance 1963 -85 / -85 265 / 265 Lab / Micro Data Result Diagrams: 11/18/22 05:10 11/18/22 05:10 Labs: Laboratory Results - last 24 hr 11/17/22 05:00: ESR 69 H 11/17/22 05:00: Sodium 125 L, Potassium 4.2, Chloride 91 L, Carbon Dioxide 20.0 L, Anion Gap 14, BUN 77 H, Creatinine 7.78 H*, Estim Creat Clear Calc 7.81, Est GFR (MDRD) Af Amer 9 L, Est GFR (MDRD) Non-Af 7 L, BUN/Creatinine Ratio 9.9 L, Glucose 123 H, Calcium 8.6, Total Bilirubin 0.70, AST 16, ALT 16, Alkaline Phosphatase 93, C-React Prot Ext Range 128.00 H, Total Protein 6.4, Albumin 2.2 L, Globulin 4.2, Albumin/Globulin Ratio 0.5 L 11/17/22 05:00: Procalcitonin 0.78 H 11/17/22 07:59: POC Glucose 98 11/17/22 10:01: Hgb 10.1 L, Hct 29.6 L 11/17/22 11:55: POC Glucose 159 H 11/17/22 14:20: Hgb 10.7 L, Hct 32.6 L 11/17/22 16:56: POC Glucose 230 H 11/17/22 21:25: POC Glucose 142 H 11/18/22 01:32: Troponin I High Sens 60 11/18/22 05:10: WBC 13.1 H, RBC 3.00 L, Hgb 10.1 L, Hct 30.2 L, MCV 100.7 H, MCH 33.7 H, MCHC 33.4, RDW Std Deviation 51.4 H, RDW Coeff of Kecia 14.0, Plt Count 208, MPV 9.5, Immature Gran % (Auto) 4.200 H, Neut % (Auto) 74.5 H, Lymph % (Auto) 9.2 L, Dundy % (Auto) 11.5 H, Eos % (Auto) 0.4, Baso % (Auto) 0.2, Absolute Neuts (auto) 9.8 H, Absolute Lymphs (auto) 1.21, Nucleated RBC % 0, Differential Comment SCANNED, Diff Path Review October11/18/22 05:10: Sodium 130 L, Potassium 4.4, Chloride 95 L, Carbon Dioxide 27.0, Anion Gap 8, BUN 40 H, Creatinine 5.24 H, Estim Creat Clear Calc 11.60, Est GFR (MDRD) Af Amer 14 L, Est GFR (MDRD) Non-Af 11 L, BUN/Creatinine Ratio 7.6 L, Glucose 87, Calcium 8.6, Total Bilirubin 0.70, AST 20, ALT 20, Alkaline Phosphatase 81, Total Protein 6.3 L, Albumin 2.1 L, Globulin 4.2, Albumin/Globulin Ratio 0.5 L 11/18/22 05:10: PT 17.0 H, INR 1.4 11/18/22 05:10: Random Vancomycin 17.5 H Micro: Microbiology 11/15/22 15:48 Blood Culture (Wb) - Right Hand Blood Culture - Preliminary Staphylococcus aureus 11/15/22 15:22 Blood Culture (Wb) - Right Wrist Blood Culture - Preliminary Staphylococcus aureus 11/15/22 22:20 Sputum, Expectorated/Coughed Gram Stain - Final 11/15/22 22:20 Sputum, Expectorated/Coughed Respiratory Culture - Preliminary Staphylococcus aureus 11/10/22 11:13 Blood Culture (Wb) - Anticubital Right Blood Culture - Final No growth in 5 days. 11/15/22 14:00 Mucosa - Nose Respiratory Panel (PCR) - Final 11/15/22 14:00 Nasal Secretion SARS-CoV-2 Antigen (Rapid) - Final 11/15/22 14:00 Mucosa - Nose Influenza Types A,B Direct FA (AGUSTIN) - Final 11/10/22 08:25 Blood Culture (Wb) - Anticubital Right Blood Culture - Final No growth in 5 days. 11/10/22 23:19 Urine, Clean Catch Legionella Antigen - Final 11/10/22 23:19 Urine, Clean Catch Streptococcus pneumoniae Antigen (M - Final Physical Exam Narrative Physical Examination: General: Awake, alert, oriented x 3 and cooperative, seated upright in the PCU bedside chair, no acute distress. Skin: Normal color, normal turgor, no icterus, no cyanosis except for occasional staged ecchymoses and bilateral lower extremity stasis changes. HEENT: AT/NC, EOMI, PERRLA, MMM. Lungs: Still diminished, greater bases, improved air movement from day prior, moderate effort, no appreciated rales, rhonchi or wheezing, no coughing today with deep inspiratory effort which is improved. Heart: Currently regular rate and rhythm; no gallop, rub audible. Abdomen: Soft, obese, NTTP, difficult to discern distention given habitus, distant BS. Extremities: No cyanosis, no clubbing, mild peripheral edema not markedly pitting, left upper extremity with aVF with positive thrill. Neurological: Patient awake, alert, oriented as noted, cognitive function intact; pupils equally reactive to light and accommodation, cranial nerves II-XII grossly normal, moving all 4 extremities, no focal deficits, strength improving, moderately global decreased Psychiatric: Affect appears less fatigued, more interactive, no acute evidence of depressive or anxiety feelings. Assessment & Plan Assessment/Plan (1) COPD with acute exacerbation: PLAN: Plan The patient is a 76 y/o M w/ PMHx: Obesity, COPD, Diabetes mellitus type II, Diastolic CHF, HTN, HLD, Chronic anemia/AOCD, ESRD on HD, Chronic Hyponatremis, Esophageal alcalasia, GERD w/ Hx GI bleed, Hx WOLFF Cirrhosis s/o orthotopic liver transplant, ANCA associated vasculitis, Anxiety and Depression, Hypothyroidism, Gout, BPH who presents to the [facility] ED on 11/10/22 secondary to increased fatigue, malaise, weakness and falls with acute dyspnea placed on BiPAP emergently in the ED with reportedly recent left lower lobe infiltrate with recent outpatient administration of levofloxacin. #1. Acute on Chronic Hypoxic and Hypercapnic Respiratory failure secondary to Acute on Chronic COPD Exacerbation and MSSA Pneumonia complicated by MSSA Bacteremia: Patient upon presentation with ABG with PCO2 51.3 and PaO2 72, initiated on BiPAP in the ED with pulmonary consultation, felt concurrently COPD and pneumonia, initiated per ED on azithromycin and Rocephin. 11/10/2022 chest x-ray with a stable 5.6 cm mass within the right upper lung suspicious for malignancy with cardiomegaly. 11/13/2022 chest x-ray with increased consolidative retrocardiac opacification possibly pneumonia versus atelectasis and stable right upper lobe mass. 11/15/2022 CTPA with re-demonstration right upper lobe mass concerning for neoplasm, increased bilateral pneumonia or pneumonitis with no evidence of PE. Upon admission broadened antibiotic therapy given his history with IV vancomycin and Zosyn, 11/17/22 noted to be maintained on IV cefepime, azithromycin and IV vancomycin, initially maintained on IV Solu-Medrol eventually weaned, on 11/16/2022 patient on prednisone 20 mg daily, given significant hypoglycemic issues and clinical improvement 11/17/2022 de-escalated to off. Bld Cx and sputum with MSSA, ID following and de-escalated to ancef IV. Still have repeat Bld Cx 11/17/22 which has no growth thus far but want to assure negative prior to Bx. Breathing remains improved with steroid d/c. ID recommends when Bx obtained to sent path and aerobic/anaerobic/fungal/AFB. #2. Esophageal achalasia as well as concurrent duodenal ulcer disease w/ Chronic Macrocytic anemia/AOCD with history of WOLFF Cirrhosis s/o orthotopic liver transplant, ANCA associated vasculitis: 11/11/2022 modified barium swallow with evidence of mild pharyngoesophageal dysphagia with recommendation for mechanical soft texture, thin liquids. 11/13/[address] Salinas with esophageal mucosal changes consistent with eosinophilic esophagitis which was biopsied, evidence of abnormal esophageal motility with an established history of achalasia with injection performed with botulinum toxin, gastric antral vascular ectasia, medium sized hiatal hernia as well as portal hypertensive gastropathy and multiple oozing duodenal ulcers with pigmented material which were injected and treated with a heater probe with recommended repeat endoscopy in 2 months. Maintained on protonix. Will continue to need outpatient evaluations and botox intervention. Treated with octreotide x 24 hours additionally w/ de-escalation 11/18/22. Modified diet being tolerated (10 bite-size, regular/thin liquid consistency, supervision at meals, meds whole in applesauce). #3. Diabetes mellitus type II with hyperglycemia: Hold oral home regimen, recent BID insulin reigmen adjustments, had notable hyperglycemia overnight, repeat BMPs had been obtained to assure no DKA, suspect likely steroid related, as noted d/c steroids with close continued monitoring, had been decreased already to 20 mg prednisone daily, acetone negative, maintained on ADA diet, accu checks w/ ISS. Blood sugars notably improved since discontinuation of steroids. #4. Acute Encephalopathy, Multifactorial: Noted during admission, felt secondary to his acute presentation with infectious presentation as well as medications in addition to hypoxia and hypercapnia, gabapentin held, clinically improved. Once clinically resolved from current acute presentation may consider restarting gabapentin outpatient. #5. ESRD: On HD, Nephrology consulted and following, HD M, T, W, F regimen, tolerating HD without issue aside from mildly low BPs. #6. Chronic Hyponatremia: Unclear specific etiology, admission sodium 128 but is certainly vacillated and ranges from 120s to low 130s, as noted planning upcoming biopsy given lung mass and certainly this could be related, will continue to monitor CMP, 11/18/22 Na 130. #7. Chronic Diastolic CHF: Chronic, appears currently compensated, ongoing HD as noted, recent 05/2022 ECHO with EF 55%, Coumadin currently held for upcoming biopsy, continued on aspirin therapy however, continue home metoprolol as well as Lasix regimen, not on JOHN inhibitor/ARB nor statin therapy. #8. History of liver transplant: We will continue patient home tacrolimus, Bactrim home regimen. Verified with patient that he is not on any chronic steroid regimen as his prednisone, d/c 11/17/22 given elevated BS without issue. #9. Hypertension: Continue home regimen including Lasix, metoprolol, PRN hydralazine. #10. Hyperlipidemia: Not on statin therapy, defer to outpatient. #11. Anxiety and depression: We will restart patient home sertraline regimen. #12. Hypothyroidism: We will continue patient home levothyroxine regimen. #13. GERD w/ PUD, recently as noted duondenal ulcers, see above: We will maintain on PPI. #14. BPH: We will continue patient home Flomax regimen. #15. Gout: We will continue patient home allopurinol regimen. #16. DVT prophylaxis: Coumadin currently on hold for possible outpatient biopsy 11/20/22 if Bld Cx repeat negative. SCDs. #17. CODE STATUS: DNR CCA, with intubation allowed. Admission Evaluation Time spent evaluating chart, patient history, patient evaluation, care planning and discussion with specialists: 35 minutes. Charges/Coding Visit Charges Inpatient E&M: 75485 Subs Hosp L2
[2022-11-18] MEDS: Levothyroxine 75 MCG Tablet PO (06:46)
[2022-11-18 07:08] LABS: Bedside Glucose 88 mg/dL (74-106)
[2022-11-18] MEDS: Ipratropium/Albuterol Sulfate 3 ML AMPUL.NEB INHALATION ×3 (07:16→19:07)
--- NOTE | 2022-11-18 08:46 | PHA.PHARE_ITS ---
Consult Pharmacy has been consulted to manage selected antiobiotic: Vancomycin Type of Consult: Follow-up Suspected Infection: Pneumonia Prior Doses of Antibiotics Received/Current Regimen: received vanc 750mg IV x1 post HD last night at 21:11 Labs: Sodium 130 mmol/L (136-145) L 11/18/22 05:10 Potassium 4.4 mmol/L (3.5-5.1) 11/18/22 05:10 Chloride 95 mmol/L (98-107) L 11/18/22 05:10 Carbon Dioxide 27.0 mmol/L (21.0-32.0) 11/18/22 05:10 Anion Gap 8 (5-15) 11/18/22 05:10 BUN 40 mg/dL (7-18) H 11/18/22 05:10 Creatinine 5.24 mg/dL (0.70-1.30) H 11/18/22 05:10 Est GFR (MDRD) Af Amer 14 mL/min (>60) L 11/18/22 05:10 Est GFR (MDRD) Non-Af 11 mL/min (>60) L 11/18/22 05:10 BUN/Creatinine Ratio 7.6 RATIO (10-20) L 11/18/22 05:10 Glucose 87 mg/dL (74-106) 11/18/22 05:10 Random Vancomycin 17.5 ug/mL (0.0-15.0) H 11/18/22 05:10 Microbiology: Microbiology 11/15/22 22:20 Sputum, Expectorated/Coughed Gram Stain - Final 11/15/22 22:20 Sputum, Expectorated/Coughed Respiratory Culture - Preliminary Staphylococcus aureus 11/15/22 15:22 Blood Culture (Wb) - Right Wrist Blood Culture - Preliminary Meth. resistant Staph. aureus 11/15/22 15:48 Blood Culture (Wb) - Right Hand Blood Culture - Preliminary Staphylococcus aureus 11/10/22 11:13 Blood Culture (Wb) - Anticubital Right Blood Culture - Final No growth in 5 days. 11/15/22 14:00 Mucosa - Nose Respiratory Panel (PCR) - Final 11/15/22 14:00 Nasal Secretion SARS-CoV-2 Antigen (Rapid) - Final 11/15/22 14:00 Mucosa - Nose Influenza Types A,B Direct FA (AGUSTIN) - Final 11/10/22 08:25 Blood Culture (Wb) - Anticubital Right Blood Culture - Final No growth in 5 days. 11/10/22 23:19 Urine, Clean Catch Legionella Antigen - Final 11/10/22 23:19 Urine, Clean Catch Streptococcus pneumoniae Antigen (M - Final Weight used for dosin.5 kg Estimated Creatinine Clearance: on HD Goal Trough: 15-20 mcg/mL Pharmacy Plan for Drug Dosing: The vanc random level drawn at 05:10 today was 17[address] [facility] [place] dosing in patients on HD, will give vanc 500mg IV x1 after HD later today since the level was between 15-20. Repeat another random level tomorrow morning pre-HD as the patient gets dialysis Mon/Tu/Wed/Fri. Pharmacy Service will continue to monitor and adjust dosing as required. Follow-Up Labs: Trough Vancomycin - random Labs to be done on [date and time ordered]: 11/19/22 0600
[2022-11-18] MEDS: Insulin Glargine-YFGN 100 UNIT/ML Pen 50 UNIT SC (08:55)
[2022-11-18] MEDS: Allopurinol 100 MG Tablet PO (08:55)
[2022-11-18] MEDS: NYSTATIN 500,000 UNIT/5 ML UDC 500000 UNIT PO (08:56)
[2022-11-18] MEDS: Pantoprazole Sodium 40 MG Tablet PO ×2 (08:56→22:57)
[2022-11-18] MEDS: guaiFENesin 1,200 MG Tablet 1200 MG PO ×2 (08:56→22:57)
[2022-11-18] MEDS: Tacrolimus 0.5 MG Capsule PO ×2 (08:56→22:58)
[2022-11-18] MEDS: Calcitriol 0.25 MCG Capsule PO (08:57)
[2022-11-18] MEDS: Furosemide 20 MG Tablet PO (08:57)
[2022-11-18] MEDS: Aspirin E.C. 81 MG Tablet PO (08:58)
[2022-11-18] MEDS: Tamsulosin HCl 0.4 MG Capsule PO ×2 (08:58→22:53)
[2022-11-18] MEDS: Metoprolol Tartrate 25 MG Tablet 12.5 MG PO ×2 (09:00→22:55)
--- NOTE | 2022-11-18 09:08 | CASEMGMT ---
Discharge Planning Updates sent via [facility] to [facility]. Melita Son
[2022-11-18 09:26] LABS: Bedside Glucose > 500 mg/dL (74-106)
[2022-11-18 09:26] LABS: Bedside Glucose > 500 mg/dL (74-106)
[2022-11-18 09:26] LABS: Bedside Glucose > 500 mg/dL (74-106)
[2022-11-18 09:26] LABS: Bedside Glucose > 500 mg/dL (74-106)
--- NOTE | 2022-11-18 10:17 | PN.RENAL_ITS ---
Subjective Subjective No new complaints. Swallow evaluation ongoing with modified diet. Objective Data Objective Data Vital Signs: Vital Signs Temp Pulse Resp BP Pulse Ox O2 Del Method O2 Flow Rate 97.8 F 108 H 19 H 106/54 L 90 Room Air 2 11/18/22 09:00 11/18/22 09:00 11/18/22 09:00 11/18/22 09:00 11/18/22 09:00 11/18/22 09:34 11/17/22 14:49 FiO2 30 11/17/22 02:55 Oxygen Flow Rate (L/min) [ 6 AMBULATING with Oxygen #1] Oxygen Flow Rate (L/min) [At 6 REST with Oxygen] Oxygen Flow Rate (L/min) 2 Oxygen Delivery Method Room Air Weight: 98.5 kg Body Mass Index (BMI) 33.0 Intake & Output: Intake and Output for Last 24 Hours 11/16/22 11/17/22 11/18/22 23:59 23:59 23:59 Intake Total 1963 520 / 520 Output Total 0 / 0 1999 0 / 0 Balance 1963 -85 / -85 520 / 520 Lab / Micro Data Result Diagrams: 11/18/22 05:10 11/18/22 05:10 Labs: Laboratory Results - last 24 hr 11/15/22 21:59: POC Glucose > 500 H* 11/15/22 22:00: POC Glucose > 500 H* 11/16/22 12:31: POC Glucose > 500 H* 11/16/22 12:37: POC Glucose > 500 H* 11/17/22 11:55: POC Glucose 159 H 11/17/22 14:20: Hgb 10.7 L, Hct 32.6 L 11/17/22 16:56: POC Glucose 230 H 11/17/22 21:25: POC Glucose 142 H 11/18/22 01:32: Troponin I High Sens 60 11/18/22 05:10: WBC 13.1 H, RBC 3.00 L, Hgb 10.1 L, Hct 30.2 L, MCV 100.7 H, MCH 33.7 H, MCHC 33.4, RDW Std Deviation 51.4 H, RDW Coeff of Kecia 14.0, Plt Count 208, MPV 9.5, Immature Gran % (Auto) 4.200 H, Neut % (Auto) 74.5 H, Lymph % (Auto) 9.2 L, Rooks % (Auto) 11.5 H, Eos % (Auto) 0.4, Baso % (Auto) 0.2, Absolute Neuts (auto) 9.8 H, Absolute Lymphs (auto) 1.21, Nucleated RBC % 0, Differential Comment SCANNED, Diff Path Review October11/18/22 05:10: Sodium 130 L, Potassium 4.4, Chloride 95 L, Carbon Dioxide 27.0, Anion Gap 8, BUN 40 H, Creatinine 5.24 H, Estim Creat Clear Calc 11.60, Est GFR (MDRD) Af Amer 14 L, Est GFR (MDRD) Non-Af 11 L, BUN/Creatinine Ratio 7.6 L, Glucose 87, Calcium 8.6, Total Bilirubin 0.70, AST 20, ALT 20, Alkaline Phosphatase 81, Total Protein 6.3 L, Albumin 2.1 L, Globulin 4.2, Albumin/Globulin Ratio 0.5 L 11/18/22 05:10: PT 17.0 H, INR 1.4 11/18/22 05:10: Random Vancomycin 17.5 H 11/18/22 06:45: POC Glucose 88 Micro: Microbiology 11/15/22 15:48 Blood Culture (Wb) - Right Hand Blood Culture - Final Staphylococcus aureus 11/15/22 15:22 Blood Culture (Wb) - Right Wrist Blood Culture - Final Staphylococcus aureus 11/15/22 22:20 Sputum, Expectorated/Coughed Gram Stain - Final 11/15/22 22:20 Sputum, Expectorated/Coughed Respiratory Culture - Preli minary Staphylococcus aureus 11/10/22 11:13 Blood Culture (Wb) - Anticubital Right Blood Culture - Final No growth in 5 days. 11/15/22 14:00 Mucosa - Nose Respiratory Panel (PCR) - Final 11/15/22 14:00 Nasal Secretion SARS-CoV-2 Antigen (Rapid) - Final 11/15/22 14:00 Mucosa - Nose Influenza Types A,B Direct FA (AGUSTIN) - Final 11/10/22 08:25 Blood Culture (Wb) - Anticubital Right Blood Culture - Final No growth in 5 days. 11/10/22 23:19 Urine, Clean Catch Legionella Antigen - Final 11/10/22 23:19 Urine, Clean Catch Streptococcus pneumoniae Antigen (M - Final Radiography Diagnostic Testing: Radiology Impression Chest X-Ray 11/13/22 09:25 IMPRESSION: 1. Increased consolidative retrocardiac opacification may relate to atelectasis and/or pneumonia. 2. Stable right upper lobe 5.3 x 4.9 cm mass. Electronically Signed: Luc Garcia DO at 10:37 EDT , Physical Exam Narrative Alert and oriented x3, no obvious distress no JVD s1s2 no murmurs lungs clear anteriorly, faint expiratory wheeze abdomen soft, nontender No pitting edema noted bilateral lower legs Left forearm AV fistula positive thrill and bruit Assessment & Plan Assessment/Plan (1) ESRD on hemodialysis: PLAN: - ESRD, on hemodialysis at [facility] Thursday, Thursday, Thursday, Thursday schedule. HD today -History of anemia of chronic disease, hemoglobin acceptable - New onset lung mass. Biopsy scheduled on Dysphagia. Status post endoscopy. Currently on modified diet and seems to be doing well.
--- NOTE | 2022-11-18 10:30 | PCM.CONS.GEN ---
Assessment & Plan Assessment/Plan (1) MSSA bacteremia: PLAN: Lab corrected report that said MRSA. Suspect pneumonia as source, sputum also with mssa. Will narrow abx to cefazolin. On bactrim for prophylaxis. Will check echo and repeat bcx. Recommend biopsy RUL mass, send for path and aerobic/anaerobic/fungal/AFB. Will follow, thank you (2) Mass of upper lobe of right lung: (3) End stage renal disease: HPI Consult Data Date of Consult: 11/18/22 HPI Narrative Reason for Consultation: bacteremia HPI Narrative: TEX RICHMOND, is a 76 M wuth h/o COPD, DM, ESRD, WOLFF cirrhosis s/p liver transplant presented 11/10 with several days weakness, falls, dyspnea. Found been found to have RUL mass on cxr a week prior, given levaquin for CAP. Seen by pulm here. Now with several days fever, white sputum. Found to have MSSA in bcx and sputum cx. Abx changed to vanc/azithro/cefepime. Feeling better. No new joint pain. Has chronic back pain. Full ROS performed and neg except as noted above. [facility] Medical History [id number] kidney injury Alcohol abuse Alcohol abuse following liver transplant Alcoholic cirrhosis of liver Anemia Arthritis Arthritis of carpometacarpal (CMC) joint of right thumb Chronic dermatitis Cirrhosis COPD (chronic obstructive pulmonary disease) COPD exacerbation CPAP (continuous positive airway pressure) dependence Depression Diabetes mellitus Duodenal ulcer disease Dyspnea Encephalopathy Encephalopathy acute Former smoker Fracture of left olecranon process Gastric reflux Gout History of anxiety History of CHF (congestive heart failure) History of echocardiogram History of IBS History of renal disease History of skin cancer History of ulceration HTN (hypertension) Hypokalemia Hypokalemia Hyponatremia Hypothyroid Hypoxia Infected ulcer of skin Macular degeneration Nausea & vomiting Non-healing non-surgical wound [facility] resident On home oxygen therapy OLVIN (obstructive sleep apnea) Shortness of breath on exertion Superficial ulcer of skin Thyroid disease Urticaria Venous insufficiency of both lower extremities Walker as ambulation aid Wears glasses Home Medications levothyroxine 75 mcg tablet 75 mcg PO DAILY thyroid 11/19/13 [History Last Taken 06/10/22] tacrolimus 1 mg capsule, immediate-release 0.5 mg PO BID transplant med 12/19/16 [History Last Taken 06/10/22] allopurinol 100 mg tablet 100 mg PO DAILY Gout 07/07/19 [History Last Taken 06/10/22] multivit with minerals-folic acid-lycopene 0.4 mg-600 mcg tablet 1 tablet PO DAILY supplement 07/07/19 [History Last Taken 06/10/22] aspirin 81 mg tablet,delayed release 81 mg PO DAILY@0800 heart health 08/30/20 [History Last Taken 06/10/22] ergocalciferol (vitamin D2) 1,250 mcg (50,000 unit) capsule 50,000 unit PO MO supplement 08/30/20 [History Last Taken 05/22/22] ketoconazole 2 % shampoo 1 applic TP MOWEFR dry scalp 08/30/20 [History Last Taken 06/09/22] magnesium oxide 400 mg PO TID supplement 08/30/20 [History Last Taken 06/10/22] sertraline 100 mg tablet 100 mg PO QHS depression 08/30/20 [History Last Taken 06/09/22] fluticasone propionate 50 mcg/actuation nasal spray,suspension (Flonase Allergy Relief) 2 spray intranasal DAILY allergies 03/11/21 [History Last Taken 06/10/22] ipratropium 0.5 mg-albuterol 3 mg (2.5 mg base)/3 mL nebulization soln 3 ml inhalation Q6H PRN Wheezing 03/11/21 [History Last Taken 06/10/22] sennosides 8.6 mg tablet (senna) 8.6 mg PO PRN PRN Constipation 03/11/21 [History Last Taken Unknown] zolpidem 5 mg tablet 5 mg PO QHS PRN Insomnia 03/11/21 [History Last Taken 06/09/22] acetaminophen 500 mg tablet 500 mg PO Q6H PRN Pain 02/06/22 [History Last Taken Unknown] bisacodyl 10 mg rectal suppository 10 mg DE Q18H PRN Constipation 02/06/22 [History Last Taken Unknown] calcium carbonate 200 mg calcium (500 mg) chewable tablet (Tums) 200 mg PO Q18H PRN Indigestion 02/06/22 [History Last Taken Unknown] docusate sodium 100 mg capsule (Colace) 100 mg PO DAILY PRN Constipation 02/06/22 [History Last Taken Unknown] furosemide 20 mg tablet (Lasix) 20 mg PO DAILY 02/06/22 [History Last Taken 06/10/22] insulin glargine 100 unit/mL (3 mL) subcutaneous pen (Lantus Solostar U-100 Insulin) 50 unit subcut BREAKFAST DIABETES 02/06/22 [History Last Taken 11/09/22] loperamide 2 mg capsule (Imodium A-D) 2 mg PO Q6H PRN Diarrhea 02/06/22 [History Last Taken 06/10/22] menthol 4 % topical gel (Biofreeze (menthol)) 1 applic topical BID PRN Pain 02/06/22 [History Last Taken Unknown] miconazole nitrate 2 % topical cream 1 applic topical QHS 02/06/22 [History Last Taken 06/10/22] semaglutide 0.25 mg or 0.5 mg (2 mg/1.5 mL) subcutaneous pen injector (Ozempic) 0.75 mg subcut MO 04/04/22 [History Last Taken 06/09/22] calcitriol 0.25 mcg capsule 0.25 mcg PO DAILY KIDNEY DISEASE 06/10/22 [History Last Taken 06/10/22] cetirizine 10 mg tablet (Zyrtec) 10 mg PO DAILY PRN ALLERGIES 06/10/22 [History Last Taken 06/10/22] sulfamethoxazole 800 mg-trimethoprim 160 mg tablet 1 tab PO MOWEFR INFECTION PREVENTION 06/10/22 [History Last Taken 06/09/22] tamsulosin 0.4 mg capsule 0.4 mg PO BID PROSTAIT 06/10/22 [History Last Taken 06/10/22] warfarin 5 mg tablet (Jantoven) 5 mg PO DAILY@1700 #0 tabs 06/15/22 [Rx Last Taken Unknown] famotidine 40 mg tablet 40 mg PO .COMPLEX REFLUX 11/10/22 [History Last Taken Unknown] insulin lispro 100 unit/mL subcutaneous pen (Humalog KwikPen (U-100) Insulin) See Rx Instructions .Route .COMPLEX DIABETES 11/10/22 [History Last Taken 11/09/22] polyethylene glycol 3350 17 gram/dose oral powder (Miralax) 4 g PO DAILY CONSTIPATION 11/10/22 [History Last Taken 11/09/22] bupropion HCl 150 mg 24 hr tablet, extended release 150 mg PO DAILY 30 days #30 tabs 11/14/22 [Rx Last Taken Unknown] diltiazem HCl 120 mg capsule,extended release 24 hr 120 mg PO DAILY #0 caps 11/14/22 [Rx Last Taken Unknown] levofloxacin 500 mg tablet 500 mg PO Q48H 5 days #3 tabs 11/14/22 [Rx Last Taken Unknown] metoprolol tartrate 25 mg tablet 12.5 mg PO BID 30 days #30 tabs 11/14/22 [Rx Last Taken Unknown] pantoprazole 40 mg tablet,delayed release (Protonix) 40 mg PO BID 30 days #60 tabs 11/14/22 [Rx Last Taken Unknown] prednisone 20 mg tablet 10 mg PO DAILY 30 days #0 tabs 11/14/22 [Rx Last Taken 06/10/22] Allergy/AdvReac Type Severity Reaction Status Date / Time cortisone [Cortisone] Allergy Angioedema Verified 11/10/22 08:18 Penicillins Allergy Unknown Verified 11/10/22 08:18 Surgical History History of esophagogastroduodenoscopy (EGD) History of excision of pilonidal cyst History of knee surgery History of parathyroid surgery History of tonsillectomy Hx of thumb surgery Social History household members: none housing: prison Smoking Status: Former smoker alcohol intake: former substance use type: does not use Physical Exam Const alert, oriented x3 and no apparent distress General Appearance: cooperative HEENT normocephalic and head/scalp atraumatic Eyes PERRL and EOMs intact bilaterally Neck supple and No nodes Resp Auscultation: rhonchi and diminished lung sounds Cardio regular rate and regular rhythm Heart Sounds: murmur GI soft to palpation, non-tender and non-distended Extremity General Extremity: edema Skin no rashes or lesions noted Skin Narrative: no spine tenderness. No splinter hemorrhages on fingers Neuro CN's II-XII intact bilaterally Lab / Micro Data Attestation: I reviewed the patient's lab results. Result Diagrams: 11/18/22 05:10 11/18/22 05:10 Labs: Laboratory Results - last 24 hr 11/15/22 21:59: POC Glucose > 500 H* 11/15/22 22:00: POC Glucose > 500 H* 11/16/22 12:31: POC Glucose > 500 H* 11/16/22 12:37: POC Glucose > 500 H* 11/17/22 11:55: POC Glucose 159 H 11/17/22 14:20: Hgb 10.7 L, Hct 32.6 L 11/17/22 16:56: POC Glucose 230 H 11/17/22 21:25: POC Glucose 142 H 11/18/22 01:32: Troponin I High Sens 60 11/18/22 05:10: WBC 13.1 H, RBC 3.00 L, Hgb 10.1 L, Hct 30.2 L, MCV 100.7 H, MCH 33.7 H, MCHC 33.4, RDW Std Deviation 51.4 H, RDW Coeff of Kecia 14.0, Plt Count 208, MPV 9.5, Immature Gran % (Auto) 4.200 H, Neut % (Auto) 74.5 H, Lymph % (Auto) 9.2 L, [place] % (Auto) 11.5 H, Eos % (Auto) 0.4, Baso % (Auto) 0.2, Absolute Neuts (auto) 9.8 H, Absolute Lymphs (auto) 1.21, Nucleated RBC % 0, Differential Comment SCANNED, Diff Path Review October11/18/22 05:10: Sodium 130 L, Potassium 4.4, Chloride 95 L, Carbon Dioxide 27.0, Anion Gap 8, BUN 40 H, Creatinine 5.24 H, Estim Creat Clear Calc 11.60, Est GFR (MDRD) Af Amer 14 L, Est GFR (MDRD) Non-Af 11 L, BUN/Creatinine Ratio 7.6 L, Glucose 87, Calcium 8.6, Total Bilirubin 0.70, AST 20, ALT 20, Alkaline Phosphatase 81, Total Protein 6.3 L, Albumin 2.1 L, Globulin 4.2, Albumin/Globulin Ratio 0.5 L 11/18/22 05:10: PT 17.0 H, INR 1.4 11/18/22 05:10: Random Vancomycin 17.5 H 11/18/22 06:45: POC Glucose 88 Micro: Microbiology 11/15/22 15:48 Blood Culture (Wb) - Right Hand Blood Culture - Final Staphylococcus aureus 11/15/22 15:22 Blood Culture (Wb) - Right Wrist Blood Culture - Final Staphylococcus aureus 11/15/22 22:20 Sputum, Expectorated/Coughed Gram Stain - Final 11/15/22 22:20 Sputum, Expectorated/Coughed Respiratory Culture - Preliminary Staphylococcus aureus Radiology Impression Chest X-Ray 11/13/22 09:25 IMPRESSION: 1. Increased consolidative retrocardiac opacification may relate to atelectasis and/or pneumonia. 2. Stable right upper lobe 5.3 x 4.9 cm mass. Electronically Signed: Luc Garcia DO at 10:37 EDT ,
[2022-11-18 11:07] LABS: Bedside Glucose 183 mg/dL (74-106)
[2022-11-18] MEDS: Insulin Lispro 100 UNIT/ML INSULN.PEN SC ×2 (12:01→22:53)
[2022-11-18 12:08] LABS: Pathologist Review Reviewed
[2022-11-18] MEDS: Cefazolin 1 GM/50 ML BAG IV ×2 (15:31→23:15)
[2022-11-18 15:55] LABS: Bedside Glucose 143 mg/dL (74-106)
[2022-11-18 18:18] LABS: Bedside Glucose 252 mg/dL (74-106)
[2022-11-18] MEDS: Insulin Glargine-YFGN 100 UNIT/ML Pen SC (22:55)
[2022-11-18] MEDS: Miconazole Nitrate Cream 1 APPLIC TOPICAL (22:56)
[2022-11-18] MEDS: Sertraline 100 MG Tablet PO (22:58)
[2022-11-18 23:17] LABS: Bedside Glucose 311 mg/dL (74-106)
[2022-11-19] VITALS (7 sets, daily range): BP systolic 96–128; BP diastolic 52–63; PULSE 86–105; RESP 16–20; TEMP 36.2–37.2; O2SAT 92–97; BMI 33.0
[2022-11-19 05:43] LABS: Absolute Lymphocyte Count 1.24 X10^3/uL (0.83-4.51); Absolute Neutrophil Count 10.2 X10^3/uL (2.0-7.7); Basophil# 0.03 X10^3/uL; Basophil% 0.2 % (0-1); Eosinophil# 0.09 X10^3/uL; Eosinophils% 0.7 % (0-5); Hematocrit 30.2 % (40-54); Hemoglobin 9.9 g/dL (13.0-16.5); Lymphocyte # 1.24 X10^3/ul (0.83-4.51); Mean Corp Hgb Conc 32.8 g/dL (32-36); Mean Corpuscular Hgb 33.2 pg (27.0-32.0); Mean Corpuscular Volume 101.3 fL (80-94); Mean Platelet Vol. 9.7 fl (6.2-12.0); Monocyte# 1.56 X10^3/uL; Monocyte% 11.4 % (0-10); NRBC Flagged by Analyzer 0 % (0-5); Neutrophil % 74.3 % (47-70); POSITIVE DIFFERENTIAL YES; Platelet Count 227 K/mm3 (150-450); RBC Distribution Width SD 52.2 fl (35.1-43.9); Red Blood Count 2.98 M/mm3 (4.6-6.2); White Blood Count 13.7 K/mm3 (4.4-11.0)
[2022-11-19 05:44] LABS: Differential Indicated SCAN CRITERIA MET
[2022-11-19] MEDS: Levothyroxine 75 MCG Tablet PO (06:26)
[2022-11-19 06:35] LABS: ALB/GLOB Ratio 0.5 RATIO (0.9-2.4); AST(SGOT) 19 U/L (15-37); Alanine Aminotransfer ALT/SGPT 12 U/L (16-61); Albumin, Serum 2.2 g/dL (3.2-5.0); Alkaline Phosphatase 83 U/L (45-117); Anion Gap 10 (5-15); BUN 44 mg/dL (7-18); Calcium,Total 8.8 mg/dL (8.5-10.1); Chloride 94 mmol/L (98-107); Creatinine, Serum 6.33 mg/dL (0.70-1.30); EST Glomerular Filtration Rate 9 mL/min (>60); Est Glom Filt Rate - Afr Amer 11 mL/min (>60); Estimated Creatinine Clearance 9.61 ml/min; Globulin 4.2 g/dL (2.2-4.2); Glucose 55 mg/dL (74-106); Potassium 4.5 mmol/L (3.5-5.1); Protein, Total 6.4 g/dL (6.4-8.2); Sodium Level 129 mmol/L (136-145)
--- NOTE | 2022-11-19 06:37 | PN.HOSP_ITS ---
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) Duodenal ulcer, unspecified as acute or chronic, without hemorrhage or perforation (11/10/22) Alcoholic cirrhosis of liver without ascites (11/10/22) End stage renal disease (11/10/22) Bacteremia (11/10/22) Other nonspecific abnormal finding of lung field (11/10/22) Dependence on renal dialysis (11/10/22) Objective Data Objective Data Vital Signs: Vital Signs Temp Pulse Resp BP Pulse Ox O2 Del Method O2 Flow Rate 98.6 F 97 16 96/52 L 96 Room Air 2 11/19/22 03:39 11/19/22 03:39 11/19/22 03:39 11/19/22 03:39 11/19/22 03:43 11/19/22 03:43 11/17/22 14:49 FiO2 30 11/17/22 02:55 Oxygen Flow Rate (L/min) [ 6 AMBULATING with Oxygen #1] Oxygen Flow Rate (L/min) [At 6 REST with Oxygen] Oxygen Flow Rate (L/min) 2 Oxygen Delivery Method Room Air Weight: 217 lb 2.485 oz Body Mass Index (BMI) 33.0 Intake & Output: Intake and Output for Last 24 Hours 11/17/22 11/18/22 11/19/22 23:59 23:59 23:59 Intake Total 1914 / 1019 Output Total 1999 0 / 0 0 / 0 Balance -85 / -85 1019 / 0 Lab / Micro Data Result Diagrams: 11/19/22 04:37 11/19/22 04:37 Labs: Laboratory Results - last 24 hr 11/15/22 21:59: POC Glucose > 500 H* 11/15/22 22:00: POC Glucose > 500 H* 11/16/22 12:31: POC Glucose > 500 H* 11/16/22 12:37: POC Glucose > 500 H* 11/18/22 05:10: Diff Path Review Reviewed 11/18/22 06:45: POC Glucose 88 11/18/22 08:52: POC Glucose 183 H 11/18/22 11:52: POC Glucose 252 H 11/18/22 15:33: POC Glucose 143 H 11/18/22 22:52: POC Glucose 311 H 11/19/22 04:37: WBC 13.7 H, RBC 2.98 L, Hgb 9.9 L, Hct 30.2 L, MCV 101.3 H, MCH 33.2 H, MCHC 32.8, RDW Std Deviation 52.2 H, RDW Coeff of Kecia 14.0, Plt Count 227, MPV 9.7, Immature Gran % (Auto) 4.400 H, Neut % (Auto) 74.3 H, Lymph % (Auto) 9.0 L, [place] % (Auto) 11.4 H, Eos % (Auto) 0.7, Baso % (Auto) 0.2, Absol rubina Neuts (auto) 10.2 H, Absolute Lymphs (auto) 1.24, Nucleated RBC % 0 11/19/22 04:37: Sodium 129 L, Potassium 4.5, Chloride 94 L, Carbon Dioxide 25.0, Anion Gap 10, BUN 44 H, Creatinine 6.33 H, Estim Creat Clear Calc 9.61, Est GFR (MDRD) Af Amer 11 L, Est GFR (MDRD) Non-Af 9 L, BUN/Creatinine Ratio 7.0 L, Glucose 55 L, Calcium 8.8, Total Bilirubin 0.70, AST 19, ALT 12 L, Alkaline Phosphatase 83, Total Protein 6.4, Albumin 2.2 L, Globulin 4.2, Albumin/Globulin Ratio 0.5 L Micro: Microbiology 11/15/22 15:48 Blood Culture (Wb) - Right Hand Blood Culture - Final Staphylococcus aureus 11/15/22 15:22 Blood Culture (Wb) - Right Wrist Blood Culture - Final Staphylococcus aureus 11/15/22 22:20 Sputum, Expectorated/Coughed Gram Stain - Final 11/15/22 22:20 Sputum, Expectorated/Coughed Respiratory Culture - Preliminary Staphylococcus aureus 11/10/22 11:13 Blood Culture (Wb) - Anticubital Right Blood Culture - Final No growth in 5 days. 11/15/22 14:00 Mucosa - Nose Respiratory Panel (PCR) - Final 11/15/22 14:00 Nasal Secretion SARS-CoV-2 Antigen (Rapid) - Final 11/15/22 14:00 Mucosa - Nose Influenza Types A,B Direct FA (AGUSTIN) - Final 11/10/22 08:25 Blood Culture (Wb) - Anticubital Right Blood Culture - Final No growth in 5 days. 11/10/22 23:19 Urine, Clean Catch Legionella Antigen - Final 11/10/22 23:19 Urine, Clean Catch Streptococcus pneumoniae Antigen (M - Final Radiography Diagnostic Testing: Radiology Impression Chest X-Ray 11/13/22 09:25 IMPRESSION: 1. Increased consolidative retrocardiac opacification may relate to atelectasis and/or pneumonia. 2. Stable right upper lobe 5.3 x 4.9 cm mass. Electronically Signed: Luc Garcia DO at 10:37 EDT ,
[2022-11-19 06:41] LABS: International Normalized Ratio 1.3; Prothrombin Time (Protime)PT. 16.7 SECONDS (11.7-14.9)
[2022-11-19 06:52] LABS: Macrocytosis 1+
[2022-11-19] MEDS: Ipratropium/Albuterol Sulfate 3 ML AMPUL.NEB INHALATION (07:14)
[2022-11-19] MEDS: Fluticasone 0.05% 1 SPRAY NASAL.SRY 2 SPRAY NASAL (09:17)
[2022-11-19] MEDS: NYSTATIN 500,000 UNIT/5 ML UDC 500000 UNIT PO ×2 (09:17→14:57)
[2022-11-19] MEDS: Aspirin E.C. 81 MG Tablet PO (09:20)
[2022-11-19] MEDS: guaiFENesin 1,200 MG Tablet 1200 MG PO (09:20)
[2022-11-19] MEDS: Pantoprazole Sodium 40 MG Tablet PO (09:20)
[2022-11-19] MEDS: Tamsulosin HCl 0.4 MG Capsule PO (09:21)
[2022-11-19] MEDS: Allopurinol 100 MG Tablet PO (09:21)
[2022-11-19] MEDS: Calcitriol 0.25 MCG Capsule PO (09:21)
[2022-11-19 09:46] LABS: Bedside Glucose 103 mg/dL (74-106)
--- NOTE | 2022-11-19 13:10 | CASEMGMT ---
Patient is ready for discharge back to [facility] today. SW sent a copy of the prescription for IV antibiotics to be given at dialysis to [facility] via [facility]. SW also made sure [facility] was aware patient has a biopsy tomorrow at 9a. Arlette MELENDREZ
--- NOTE | 2022-11-19 13:12 | PCM.PN.ID ---
Physical Exam Narrative Feeling ok, no fever, HD today Const alert and no apparent distress General Appearance: cooperative Resp normal air movement and clear to auscultation bilaterally Cardio regular rate and regular rhythm GI soft to palpation, non-tender and non-distended Extremity General Extremity: edema Skin no rashes or lesions noted ID ID: Route of nutrition/ use of supplements: [] Nutritional Intake: [] IV Site: [] Castellon Catheter: [] Assessment & Plan Assessment/Plan (1) MSSA bacteremia: PLAN: Lab corrected report that said MRSA. Suspect pneumonia as source, sputum also with mssa. Cont cefazolin. On bactrim for prophylaxis. TTE showed no veg, bcx clearing rapidly. Lung bx scheduled for tomorrow. Ok for home with 4 weeks iv cefazolin, dosed with HD, with weekly labs. ID followup in 2 weeks. Will follow (2) Mass of upper lobe of right lung: (3) End stage renal disease:
--- NOTE | 2022-11-19 13:14 | TREXTCAR_ITS ---
Diet Diet Order/Speech Therapy: 11/14/22 11:08 Diet: Renal - ConsCHO - Segun Cont Food consistency:: Soft & Bite Sized Liquid Consistency:: Regular/Thin Is pt able to select menu?: No Diet Comments: supervision at meals, meds whole in applesauce How many daily calories?: 1999 calorie Routine Orders/Code Status Suppository Type: Dulcolax 10mg Suppository Frequency: Daily PRN Routine Lab Work: - (Obtain weekly CBC, BMP, fax results as requested to ID x 4 weeks while being administered IV ancef.) Code Status: DNRCC-A (DNR-CCA, no intubation status.) Wound(s) BLE: Wound Type: SCATTERED ABRASIONS Rt elbow: Wound Type: Abrasion abdomen: Wound Type: scabbing Suggestions for Active Care Change Position every (hours): 2 Hours to sit in a chair: 4 Times a day to sit in chair: 3 Therapies Weight Bearing: Weight bearing as tolerated Physical Therapy: Eval and Treat Occupational Therapy: Eval and Treat Speech Therapy: Eval and Treat Problem/Diagnosis (1) MSSA bacteremia: Status: Acute Code(s): R78.81 - Bacteremia; B95.61 - Methicillin susceptible Staphylococcus aureus infection as the cause of diseases classified elsewhere (2) Mass of upper lobe of right lung: Status: Acute Code(s): R91.8 - Other nonspecific abnormal finding of lung field (3) End stage renal disease: Status: Acute Code(s): N18.6 - End stage renal disease Allergies/Procedures Done in Hospital Allergies cortisone [Cortisone] Allergy (Verified 11/10/22 08:18) Angioedema Penicillins Allergy (Verified 11/10/22 08:18) Unknown CHILDHOOD REACTION Procedures: EGD and EKG Type of Care/Length of Stay Estimated LOS: More Than 30 Days Type of Care Needed: Skilled Rehab Potential: Fair Prognosis: Fair Additional Orders/Day of Discharge Day of Discharge: 11/14/22 Dietary and Speech Recommendations Dietitian Recommendations/Changes: Continue Renal, 1999 calorie/consistent carbohydrate diet- texture/consistency modifications per WEB SITE MANAGER; Nepro Carb Steady ONS w/ medpass if pt becomes agreeable. Daily wts- dialysis pt. Discharge Plan Admission Admit Date/Time: 11/10/22 13:23 Primary Reason for Your Visit: COPD Exacerbation, MSSA PNA, BETH Bacteremia, GI bleed, Achalasia, Resp fail Attending Provider: Mignon Dawkins Primary Care Provider: Davian Pete Consulting Providers: Willem Acosta ; Andres Reyez ; Dami Schwartz ; Wili Leon ; Nona Rivera OFFICE TECHNOLOGY PROFESSOR ; Nancy Sargent ; Derick Salgado ; Celena Barber ; Leonardo Zuniga Instructions Patient Instructions: Discharge Instructions: COPD, Gastric Duodenal Ulcer Ch, ED Pneumonia (Adult) Additional Instructions / Restrictions: DISCHARGE INSTRUCTIONS PLEASE READ UPCOMING LUNG BIOPSY: -You have a biopsy of your lung mass scheduled for 11/20/2022. -Continue to hold your Coumadin and only resume once allowed to do so per Radiology following. GI BLEED/DUODENAL ULCER DISEASE: -You were found to have duodenal ulcers on your upper endoscopy. -It is recommended that you continue low dose aspirin only temporarily and after your biopsy once allowed switch back to your coumadin with close INR monitoring until appropriate level achieved. -You will also be discharged on Protonix 40 mg twice daily for 4 weeks and can likely de-escalate to 40 daily at that time but this will be determined also by gastroenterology. -Please plan to follow-up with Dr. Salinas (may see his OFFICE TECHNOLOGY PROFESSOR) in the office in 4 weeks. ESOPHAGEAL ACHALASIA: -Your recent studies demonstrated evidence of abnormal esophageal motility with an established history of achalasia with injection performed with botulinum toxin, gastric antral vascular ectasia, medium sized hiatal hernia as well as portal hypertensive gastropathy and multiple oozing duodenal ulcers with pigmented material which were injected and treated with a heater probe with recommended repeat endoscopy in 2 months. -You have had recommendations for your eating/diet per speech therapy. -Recommendation: Mechanical Soft Textures, Thin Liquid. Small Bites, Small Sips, Sitting upright, Remain sitting upright for 30 minutes after PO intake, Mini april/decrease distractions. -Please plan to follow-up with Dr. Salinas (may see his OFFICE TECHNOLOGY PROFESSOR) in the office in 4 weeks. PNEUMONIA/COPD EXACERBATION with associated BLOOD INFECTION (BACTEREMIA): -You will be discharged with an antibiotic to complete your treatment both pneumonia and the blood infection (same organism) which will be administered with dialysis x 4 weeks (Ancef). -You were treated with a course of IV steroids as well as oral steroids inpatient which was weaned off. ADDITIONAL RECOMMENDATIONS/MEDICATION CHANGES: -It is strongly recommended that you do not resume taking gabapentin as this may contribute to confusion and lethargy. -Would recommend changing your bupropion 150 sustained-release twice daily to 150 extended release daily as this may help prevent sleep disturbance. -Your metoprolol has been decreased due to episodes of low blood pressure. Would recommend checking your blood pressure prior to taking your medication in the morning and hold Cardizem for systolic blood pressure less than 100 or heart rate less than 60 and holding metoprolol additionally if systolic is less than 90 or heart rate less than 60. If either or both need to be held, especially repeatedly, may consider dose adjustment/medication changes. Discharge Orders/Prescriptions Prescriptions: New bupropion HCl 150 mg tablet extended release 24 hr 150 mg PO DAILY 30 Days Qty: 30 0RF metoprolol tartrate 25 mg tablet 12.5 mg PO BID 30 Days Qty: 30 0RF Rx Instructions: Hold for heart rate <60 or SBP <90 pantoprazole [Protonix] 40 mg tablet,delayed release (DR/EC) 40 mg PO BID 30 Days Qty: 60 0RF cefazolin 2 gram recon soln 2 g IV .as directed Qty: 12 0RF Rx Instructions: Dose to be given with dialysis: 2gm on Thu 2gm on Thu 3gm on Thu dx: MSSA bacteremia. Stop date 12/15/22. weekly bmp and cbc. Fax to [phone] Continued levothyroxine 75 MCG tablet 75 mcg PO DAILY tacrolimus 1 MG capsule 0.5 mg PO BID allopurinol 100 MG tablet 100 mg PO DAILY multivit with [id number] 1 EACH tablet 1 tablet PO DAILY ketoconazole 120 ML shampoo 1 applic TP MOWEFR sertraline 100 MG tablet 100 mg PO QHS aspirin 81 MG tablet,delayed release (DR/EC) 81 mg PO DAILY@0800 ergocalciferol (vitamin D2) 50,000 UNIT capsule 50,000 unit PO MO ipratropium-albuterol 0.5 mg-3 mg(2.5 mg base)/3 mL Solution For Nebulization 3 ml INHALATION Q6H PRN (Reason: Wheezing) zolpidem 5 mg Tablet 5 mg PO QHS PRN (Reason: Insomnia) fluticasone propionate [Flonase Allergy Relief] 50 mcg/actuation [place],Suspension 2 spray INTRANASAL DAILY sennosides [senna] 8.6 mg Tablet 8.6 mg PO PRN PRN (Reason: Constipation) loperamide [Imodium A-D] 2 mg Capsule 2 mg PO Q6H PRN (Reason: Diarrhea) miconazole nitrate 2 % Cream 1 applic TOPICAL QHS acetaminophen 500 mg Tablet 500 mg PO Q6H PRN (Reason: Pain) bisacodyl 10 mg Suppository 10 mg VT Q18H PRN (Reason: Constipation) calcium carbonate [Tums] 200 mg calcium (500 mg) Tablet,Chewable 200 mg PO Q18H PRN (Reason: Indigestion) docusate sodium [Colace] 100 mg Capsule 100 mg PO DAILY PRN (Reason: Constipation) furosemide [Lasix] 20 mg Tablet 20 mg PO DAILY insulin glargine [Lantus Solostar U-100 Insulin] 100 unit/mL (3 mL) Insulin Pen 50 unit SUBCUT BREAKFAST Biofreeze (menthol) 4 % Gel 1 applic TOPICAL BID PRN (Reason: Pain) Ozempic 0.25 mg or 0.5 mg(2 mg/1.5 mL) Pen Injector 0.75 mg SUBCUT MO Rx Instructions: for 4 doses cetirizine [Zyrtec] 10 mg Tablet 10 mg PO DAILY PRN (Reason: ALLERGIES) sulfamethoxazole-trimethoprim 800-160 mg tablet 1 tab PO MOWEFR tamsulosin 0.4 mg Capsule 0.4 mg PO BID calcitriol 0.25 mcg capsule 0.25 mcg PO DAILY insulin lispro [Humalog KwikPen Insulin] 100 unit/mL Insulin Pen See Rx Instructions .ROUTE .COMPLEX Rx Instructions: PER SLIDING SCALE AC 0-15=0 U 151-200=2 U 201-250=4 U 251-300=6 U 301-350= 8 U 351-400=10 U 401-450=12 U >450=14 U AND UPDATE famotidine 40 mg tablet 40 mg PO .COMPLEX Rx Instructions: 40 mg orally every Thursday, Thursday, Thursday polyethylene glycol 3350 [Miralax] 17 gram/dose powder 4 g PO DAILY diltiazem HCl 120 mg Capsule,Extended Release 24hr 120 mg PO DAILY Qty: 0 0RF Rx Instructions: Hold for heart rate <60 or SBP <100 or Changed prednisone 20 mg tablet 10 mg PO DAILY 30 Days Qty: 0 0RF Held magnesium oxide 400 MG tablet 400 mg PO TID Hold Instructions: Resume on 11/16/22. Please verify dosing with nephrology before resuming warfarin [Jantoven] 5 mg Tablet 5 mg PO DAILY@1700 Qty: 0 0RF Hold Instructions: Resume on 11/21/22. Hold for biopsy 11/20, resume and given the okay to do so by your physician. At that time would recommend resuming Coumadin and stopping aspirin Discontinued bupropion HCl 150 MG tablet sustained-release 12 hr 150 mg PO BID gabapentin 100 mg Capsule 100 mg PO TID metoprolol tartrate 50 mg Tablet 50 mg PO BID Qty: 0 0RF oxycodone-acetaminophen [oxycodone-acetaminophen] 5-325 mg tablet 1 tab PO Q6H PRN PRN (Reason: pain) 5 Days Qty: 20 0RF levofloxacin 500 mg tablet 250 mg PO DAILY Rx Instructions: MON, WED, THU UNTIL 11/22 Referrals / Follow Up: Willem Acosta MD [Med Staff - Active Staff] - 11/20/22 9:00 am (CT guided biopsy- Hold coumadin for 5 days prior. ) Nancy Sargent MD [Med Staff - Consulting] - See Referral Note (Please c ontinue HD as previously arranged with Nephrology.) Davian Pete MD [Primary Care Provider] - Within 1 Week Coleman Salinas DO [Med Staff - Active Staff] - See Referral Note (Please follow-up in 4 weeks, may see GI OFFICE TECHNOLOGY PROFESSOR.) Disposition Disposition (needs filled in before D/C Order can be placed): [facility]
--- NOTE | 2022-11-19 13:17 | CASEMGMT ---
EAGLE NEGRETE in to complete IMM with patient. EAGLE NEGRETE explained IMM to patient, patient voiced understanding. Patient signed IMM and filed in chart. Patient provided with copy of IMM. Patient had no further questions or concerns at this time.
--- NOTE | 2022-11-19 13:21 | PCM.DC.SUM ---
Providers Date of Admission: 11/10/22 Date of Discharge: 11/19/22 Primary Care Physician: Dr. Davian Pete MD Consultations 11/10/22 14:05 Consult: Protection Manager / Pulmonary Medicine Routine Consulting Provider: [facility] Reason for Consult: lung mass EMERGENT Consult: No Notified: Yes Date Notified: 11/10/22 Time Notified: 14:19 Method of Notification: Text Consult: Nephrology Routine Consulting Provider: Nancy Sargent Reason for Consult: dialysis EMERGENT Consult: No MD Notified: Yes Date Notified: 11/10/22 Time Notified: 13:48 Method of Notification: Verbal 11/12/22 09:33 Consult: Gastroenterology Routine Consulting Provider: [facility] Reason for Consult: Min esophageal clearance during swallow study +hx achalasia- speech rec c/s EMERGENT Consult: No Notified: Yes Date Notified: 11/12/22 Time Notified: 09:33 Method of Notification: Text 11/18/22 06:59 Consult: Infectious Disease Routine Consulting Provider: Leonardo uZniga Reason for Consult: Bacteremia EMERGENT Consult: No Notified: Yes Date Notified: 11/18/22 Time Notified: 07:51 Method of Notification: Text Reason For Visit: HYPERCAPNIC RESPIRATORY FAILURE Diagnosis Discharge Diagnosis (1) MSSA bacteremia: Status: Acute Code(s): R78.81 - Bacteremia; B95.61 - Methicillin susceptible Staphylococcus aureus infection as the cause of diseases classified elsewhere (2) Mass of upper lobe of right lung: Status: Acute Code(s): R91.8 - Other nonspecific abnormal finding of lung field (3) End stage renal disease: Status: Acute Code(s): N18.6 - End stage renal disease Plan: Additional Diagnoses: #1.? Acute on Chronic Hypoxic and Hypercapnic Respiratory failure secondary to Acute on Chronic COPD Exacerbation and MSSA Pneumonia complicated by MSSA Bacteremia #2.? Esophageal achalasia as well as concurrent duodenal ulcer disease w/ Chronic Macrocytic anemia/AOCD with history of WOLFF Cirrhosis s/o orthotopic liver transplant, ANCA associated vasculitis #3.? Diabetes mellitus type II with hyperglycemia likely secondary to steroid usage #4.? Acute Encephalopathy, Multifactorial, improved, likely infectious/medications #5.? ESRD on HD, Nephrology consulted and following, HD M, T, W, F regimen #6.? Chronic Hyponatremia #7.? Chronic Diastolic CHF #8.? History of liver transplant with history of WOLFF Cirrhosis s/o orthotopic liver transplant, ANCA associated vasculitis #9.? Hypertension #10.? Hyperlipidemia #11.? Anxiety and depression #12.? Hypothyroidism #13.? GERD w/ PUD, recently as noted duondenal ulcers, see above #14.? BPH #15.? Gout #16.? CODE STATUS: DNR CCA, with intubation allowed. Medications at Discharge Home Medications levothyroxine 75 mcg tablet 75 mcg PO DAILY thyroid 11/19/13 tacrolimus 1 mg capsule, immediate-release 0.5 mg PO BID transplant med 06/09/16 allopurinol 100 mg tablet 100 mg PO DAILY Gout 07/07/19 multivit with minerals-folic acid-lycopene 0.4 mg-600 mcg tablet 1 tablet PO DAILY supplement 07/07/19 aspirin 81 mg tablet,delayed release 81 mg PO DAILY@0800 heart health 08/30/20 ergocalciferol (vitamin D2) 1,250 mcg (50,000 unit) capsule 50,000 unit PO MO supplement 08/30/20 ketoconazole 2 % shampoo 1 applic TP MOWEFR dry scalp 08/30/20 magnesium oxide 400 mg PO TID supplement 08/30/20 sertraline 100 mg tablet 100 mg PO QHS depression 08/30/20 fluticasone propionate 50 mcg/actuation nasal spray,suspension (Flonase Allergy Relief) 2 spray intranasal DAILY allergies 03/11/21 ipratropium 0.5 mg-albuterol 3 mg (2.5 mg base)/3 mL nebulization soln 3 ml inhalation Q6H PRN Wheezing 03/11/21 sennosides 8.6 mg tablet (senna) 8.6 mg PO PRN PRN Constipation 03/11/21 zolpidem 5 mg tablet 5 mg PO QHS PRN Insomnia 03/11/21 acetaminophen 500 mg tablet 500 mg PO Q6H PRN Pain 02/06/22 bisacodyl 10 mg rectal suppository 10 mg AR Q18H PRN Constipation 02/06/22 calcium carbonate 200 mg calcium (500 mg) chewable tablet (Tums) 200 mg PO Q18H PRN Indigestion 02/06/22 docusate sodium 100 mg capsule (Colace) 100 mg PO DAILY PRN Constipation 02/06/22 furosemide 20 mg tablet (Lasix) 20 mg PO DAILY 02/06/22 insulin glargine 100 unit/mL (3 mL) subcutaneous pen (Lantus Solostar U-100 Insulin) 50 unit subcut BREAKFAST DIABETES 02/06/22 loperamide 2 mg capsule (Imodium A-D) 2 mg PO Q6H PRN Diarrhea 02/06/22 menthol 4 % topical gel (Biofreeze (menthol)) 1 applic topical BID PRN Pain 02/06/22 miconazole nitrate 2 % topical cream 1 applic topical QHS 02/06/22 semaglutide 0.25 mg or 0.5 mg (2 mg/1.5 mL) subcutaneous pen injector (Ozempic) 0.75 mg subcut MO 04/04/22 calcitriol 0.25 mcg capsule 0.25 mcg PO DAILY KIDNEY DISEASE 06/10/22 cetirizine 10 mg tablet (Zyrtec) 10 mg PO DAILY PRN ALLERGIES 06/10/22 sulfamethoxazole 800 mg-trimethoprim 160 mg tablet 1 tab PO MOWEFR INFECTION PREVENTION 06/10/22 tamsulosin 0.4 mg capsule 0.4 mg PO BID PROSTAIT 06/10/22 warfarin 5 mg tablet (Jantoven) 5 mg PO DAILY@1700 #0 tabs 06/15/22 famotidine 40 mg tablet 40 mg PO .COMPLEX REFLUX 11/10/22 insulin lispro 100 unit/mL subcutaneous pen (Humalog KwikPen (U-100) Insulin) See Rx Instructions .Route .COMPLEX DIABETES 11/10/22 polyethylene glycol 3350 17 gram/dose oral powder (Miralax) 4 g PO DAILY CONSTIPATION 11/10/22 bupropion HCl 150 mg 24 hr tablet, extended release 150 mg PO DAILY 30 days #30 tabs 11/14/22 diltiazem HCl 120 mg capsule,extended release 24 hr 120 mg PO DAILY #0 caps 11/14/22 metoprolol tartrate 25 mg tablet 12.5 mg PO BID 30 days #30 tabs 11/14/22 pantoprazole 40 mg tablet,delayed release (Protonix) 40 mg PO BID 30 days #60 tabs 11/14/22 prednisone 20 mg tablet 10 mg PO DAILY 30 days #0 tabs 05/26/23 cefazolin 2 gram intravenous solution 2 g IV .as directed #12 ea 11/19/22 Hospital Course Operations None Procedures Dialysis, EGD and EKG Summary of Care Provided Minutes Spent on Discharge: 35 Hospital Course: The patient is a 76 y/o M w/ PMHx: Obesity, COPD, Diabetes mellitus type II, Diastolic CHF, HTN, HLD, Chronic anemia/AOCD, ESRD on HD, Chronic Hyponatremia, Esophageal alcalasia, GERD w/ Hx GI bleed, Hx WOLFF Cirrhosis s/o orthotopic liver transplant, ANCA associated vasculitis, Anxiety and Depression, Hypothyroidism, Gout, BPH who presented to the [facility] ED on 11/10/22 secondary to increased fatigue, malaise, weakness and falls with acute dyspnea placed on BiPAP emergently in the ED with reportedly recent left lower lobe infiltrate with recent outpatient administration of levofloxacin. Patient upon presentation with ABG with PCO2 51.3 and PaO2 72, initiated on BiPAP in the ED with pulmonary consultation, felt concurrently COPD and pneumonia, initiated per ED on azithromycin and Rocephin. 11/10/2022 chest x-ray with a stable 5.6 cm mass within the right upper lung suspicious for malignancy with cardiomegaly.? 11/13/2022 chest x-ray with increased consolidative retrocardiac opacification possibly pneumonia versus atelectasis and stable right upper lobe mass.? 11/15/2022 CTPA with re-demonstration right upper lobe mass concerning for neoplasm, increased bilateral pneumonia or pneumonitis with no evidence of PE. Upon admission broadened antibiotic therapy given his history with IV vancomycin and Zosyn, 11/17/22 noted to be maintained on IV cefepime, azithromycin and IV vancomycin, initially maintained on IV Solu-Medrol eventually weaned, on 11/16/2022 patient on prednisone 20 mg daily, given significant hypoglycemic issues and clinical improvement 11/17/2022 de-escalated to off. Bld Cx and sputum with MSSA, ID following and de-escalated to ancef IV w/ planned continuation with HD x 4 weeks. Still have repeat Bld Cx 11/17/22 which has no growth thus far but want to assure negative prior to Bx. Breathing remained improved with steroid d/c. ID recommended when Bx obtained to sent path and aerobic/anaerobic/fungal/AFB. 11/11/2022 modified barium swallow with evidence of mild pharyngoesophageal dysphagia with recommendation for mechanical soft texture, thin liquids. 11/13/[address] Salinas with esophageal mucosal changes consistent with eosinophilic esophagitis which was biopsied, evidence of abnormal esophageal motility with an established history of achalasia with injection performed with botulinum toxin, gastric antral vascular ectasia, medium sized hiatal hernia as well as portal hypertensive gastropathy and multiple oozing duodenal ulcers with pigmented material which were injected and treated with a heater probe with recommended repeat endoscopy in 2 months. Maintained on protonix. Will continue to need outpatient evaluations and botox intervention. Treated with octreotide x 24 hours additionally w/ de-escalation 11/18/22. Modified diet tolerated (10 bite-size, regular/thin liquid consistency, supervision at meals, meds whole in applesauce). Of note encephalopathy marked during admission, felt multifactorial, secondary to his acute presentation with infectious presentation as well as medications in addition to hypoxia and hypercapnia, gabapentin held, clinically improved.?Patient 11/19/22 clinically stable, repeat Bld Cx without growth 11/17/22, ID amenable thus discharged to SNF with ongoing abx therapy, adjustments to diet, planned follow-up with GI, continued on PPI, planned outpatient follow-up 11/20/22 for lung Bx as previously arranged. DAY OF DISCHARGE PROGRESS NOTE: Subjective: Patient without acute event overnight per self and nursing report. Patient maintained on room air, stable respiratory status. Discussed recent bld Cx with no growth, planned continuation of IV ancef for MSSA bacteremia/MSSA PNA. HD today. Patient denies fever, chills, nausea, emesis, abdominal pain, chest pain or recurrent or worsened dyspnea. Patient agreeable to discharge to SNF with planned return 11/20/22 for outpatient lung Bx. Patient will be discharged with follow-up with primary care physician, GI, Nephrology and Pulmonary medicine. Objective: T98.9, heart 94, BP 128/63, respiratory rate 16, 97% room air. Physical Examination: General: Awake, alert, oriented x 3 and cooperative, seated upright in the PCU bedside chair, no acute distress, more fatigued this am. Skin: Normal color, normal turgor, no icterus, no cyanosis except for occasional staged ecchymoses and bilateral lower extremity stasis changes. HEENT: AT/NC, EOMI, PERRLA, MMM. Lungs: Still diminished, greater bases, moderate effort, no appreciated rales, rhonchi or wheezing. Heart: Currently regular rate and rhythm; no gallop, rub audible. Abdomen: Soft, obese, NTTP, difficult to discern distention given habitus, distant BS. Extremities: No cyanosis, no clubbing, mild peripheral edema not markedly pitting, left upper extremity with aVF with positive thrill.? Neurological: Patient awake, alert, oriented as noted, cognitive function intact; pupils equally reactive to light and accommodation, cranial nerves II-XII grossly normal, moving all 4 extremities, no focal deficits, strength improving, moderately globally decreased. Psychiatric: Affect appears fatigued this am, remains eager for discharge, no acute evidence of depressive or anxiety feelings. Assessment and Plan: Please see hospital summary above. Weight / BMI Weight Weight: 217 lb 2.485 oz Body Mass Index (BMI) 33.0 ABG / Lab / Microbiology Data Result Diagrams: 11/19/22 04:37 11/19/22 04:37 Laboratory: Laboratory Results - last 24 hr 11/18/22 11:52: POC Glucose 252 H 11/18/22 15:33: POC Glucose 143 H 11/18/22 22:52: POC Glucose 311 H 11/19/22 04:37: WBC 13.7 H, RBC 2.98 L, Hgb 9.9 L, Hct 30.2 L, MCV 101.3 H, MCH 33.2 H, MCHC 32.8, RDW Std Deviation 52.2 H, RDW Coeff of [place]ec[place] 14.0, Plt Count 227, MPV 9.7, Immature Gran % (Auto) 4.400 H, Neut % (Auto) 74.3 H, Lymph % (Auto) 9.0 L, [place] % (Auto) 11.4 H, Eos % (Auto) 0.7, Baso % (Auto) 0.2, Absolute Neuts (auto) 10.2 H, Absolute Lymphs (auto) 1.24, Nucleated RBC % 0, Diff Path Review May foll, Macrocytosis 1+ 11/19/22 04:37: Sodium 129 L, Potassium 4.5, Chloride 94 L, Carbon Dioxide 25.0, Anion Gap 10, BUN 44 H, Creatinine 6.33 H, Estim Creat Clear Calc 9.61, Est GFR (MDRD) Af Amer 11 L, Est GFR (MDRD) Non-Af 9 L, BUN/Creatinine Ratio 7.0 L, Glucose 55 L, Calcium 8.8, Total Bilirubin 0.70, AST 19, ALT 12 L, Alkaline Phosphatase 83, Total Protein 6.4, Albumin 2.2 L, Globulin 4.2, Albumin/Globulin Ratio 0.5 L 11/19/22 04:37: PT 16.7 H, INR 1.3 11/19/22 09:08: POC Glucose 103 Microbiology: Microbiology 11/15/22 22:20 Sputum, Expectorated/Coughed Gram Stain - Final 11/15/22 22:20 Sputum, Expectorated/Coughed Respiratory Culture - Final Staphylococcus aureus 11/17/22 12:25 Blood Culture (Wb) - Line Draw Blood Culture - Preliminary No growth in 48 hours. 11/17/22 12:05 Blood Culture (Wb) - Venous Blood Culture - Preliminary No growth in 48 hours. 11/15/22 15:48 Blood Culture (Wb) - Right Hand Blood Culture - Final Staphylococcus aureus 11/15/22 15:22 Blood Culture (Wb) - Right Wrist Blood Culture - Final Staphylococcus aureus 11/10/22 11:13 Blood Culture (Wb) - Anticubital Right Blood Culture - Final No growth in 5 days. 11/15/22 14:00 Mucosa - Nose Respiratory Panel (PCR) - Final 11/15/22 14:00 Nasal Secretion SARS-CoV-2 Antigen (Rapid) - Final 11/15/22 14:00 Mucosa - Nose Influenza Types A,B Direct FA (AGUSTIN) - Final 11/10/22 08:25 Blood Culture (Wb) - Anticubital Right Blood Culture - Final No growth in 5 days. 11/10/22 23:19 Urine, Clean Catch Legionella Antigen - Final 11/10/22 23:19 Urine, Clean Catch Streptococcus pneumoniae Antigen (M - Final Meaningful Use Info Meaningful Use Diagnoses (Choose all that apply): None applicable Discharge Plan Admission Admit Date/Time: 11/10/22 13:23 Primary Reason for Your Visit: COPD Exacerbation, MSSA PNA, BETH Bacteremia, GI bleed, Achalasia, Resp fail Attending Provider: Mignon Dawkins Primary Care Provider: Davian Pete Consulting Providers: Willem Acosta ; Andres Reyez ; Dami Schwartz ; Wili Leon ; Nona Rivera CONTINUOUS IMPROVEMENT ENGINEER ; Nancy Sargent ; Derick Salgado ; Celena Barber ; Leonardo Zuniga Instructions Patient Instructions: Discharge Instructions: COPD, 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 -Continue to hold your Coumadin and only resume once allowed to do so per Radiology following. GI BLEED/DUODENAL ULCER DISEASE: -You were found to have duodenal ulcers on your upper endoscopy. -It is recommended that you continue low dose aspirin only temporarily and after your biopsy once allowed switch back to your coumadin with close INR monitoring until appropriate level achieved. -You will also be discharged on Protonix 40 mg twice daily for 4 weeks and can likely de-escalate to 40 daily at that time but this will be determined also by gastroenterology. -Please plan to follow-up with Dr. Salinas (may see his CONTINUOUS IMPROVEMENT ENGINEER) in the office in 4 weeks. ESOPHAGEAL ACHALASIA: -Your recent studies demonstrated evidence of abnormal esophageal motility with an established history of achalasia with injection performed with botulinum toxin, gastric antral vascular ectasia, medium sized hiatal hernia as well as portal hypertensive gastropathy and multiple oozing duodenal ulcers with pigmented material which were injected and treated with a heater probe with recommended repeat endoscopy in 2 months. -You have had recommendations for your eating/diet per speech therapy. -Recommendation: Mechanical Soft Textures, Thin Liquid. Small Bites, Small Sips, Sitting upright, Remain sitting upright for 30 minutes after PO intake, Minimize/decrease distractions. -Please plan to follow-up with Dr. Salinas (may see his CONTINUOUS IMPROVEMENT ENGINEER) in the office in 4 weeks. PNEUMONIA/COPD EXACERBATION with associated BLOOD INFECTION (BACTEREMIA): -You will be discharged with an antibiotic to complete your treatment both pneumonia and the blood infection (same organism) which will be administered with dialysis x 4 weeks (Ancef). -You were treated with a course of IV steroids as well as oral steroids inpatient which was weaned off. ADDITIONAL RECOMMENDATIONS/MEDICATION CHANGES: -It is strongly recommended that you do not resume taking gabapentin as this may contribute to confusion and lethargy. -Would recommend changing your bupropion 150 sustained-release twice daily to 150 extended release daily as this may help prevent sleep disturbance. -Your metoprolol has been decreased due to episodes of low blood pressure. Would recommend checking your blood pressure prior to taking your medication in the morning and hold Cardizem for systolic blood pressure less than 100 or heart rate less than 60 and holding metoprolol additionally if systolic is less than 90 or heart rate less than 60. If either or both need to be held, especially repeatedly, may consider dose adjustment/medication changes. Discharge Orders/Prescriptions Prescriptions: New bupropion HCl 150 mg tablet extended release 24 hr 150 mg PO DAILY 30 Days Qty: 30 0RF metoprolol tartrate 25 mg tablet 12.5 mg PO BID 30 Days Qty: 30 0RF Rx Instructions: Hold for heart rate <60 or SBP <90 pantoprazole [Protonix] 40 mg tablet,delayed release (DR/EC) 40 mg PO BID 30 Days Qty: 60 0RF cefazolin 2 gram recon soln 2 g IV .as directed Qty: 12 0RF Rx Instructions: Dose to be given with dialysis: 2gm on Thu 2gm on Thu 3gm on Thu dx: MSSA bacteremia. Stop date 12/15/22. weekly bmp and cbc. Fax to [phone] Continued levothyroxine 75 MCG tablet 75 mcg PO DAILY tacrolimus 1 MG capsule 0.5 mg PO BID allopurinol 100 MG tablet 100 mg PO DAILY multivit with [id number] 1 EACH tablet 1 tablet PO DAILY ketoconazole 120 ML shampoo 1 applic TP MOWEFR sertraline 100 MG tablet 100 mg PO QHS aspirin 81 MG tablet,delayed release (DR/EC) 81 mg PO DAILY@0800 ergocalciferol (vitamin D2) 50,000 UNIT capsule 50,000 unit PO MO ipratropium-albuterol 0.5 mg-3 mg(2.5 mg base)/3 mL Solution For Nebulization 3 ml INHALATION Q6H PRN (Reason: Wheezing) zolpidem 5 mg Tablet 5 mg PO QHS PRN (Reason: Insomnia) fluticasone propionate [Flonase Allergy Relief] 50 mcg/actuation [place],Suspension 2 spray INTRANASAL DAILY sennosides [senna] 8.6 mg Tablet 8.6 mg PO PRN PRN (Reason: Constipation) loperamide [Imodium A-D] 2 mg Capsule 2 mg PO Q6H PRN (Reason: Diarrhea) miconazole nitrate 2 % Cream 1 applic TOPICAL QHS acetaminophen 500 mg Tablet 500 mg PO Q6H PRN (Reason: Pain) bisacodyl 10 mg Suppository 10 mg AR Q18H PRN (Reason: Constipation) calcium carbonate [Tums] 200 mg calcium (500 mg) Tablet,Chewable 200 mg PO Q18H PRN (Reason: Indigestion) docusate sodium [Colace] 100 mg Capsule 100 mg PO DAILY PRN (Reason: Constipation) furosemide [Lasix] 20 mg Tablet 20 mg PO DAILY insulin glargine [Lantus Solostar U-100 Insulin] 100 unit/mL (3 mL) Insulin Pen 50 unit SUBCUT BREAKFAST Biofreeze (menthol) 4 % Gel 1 applic TOPICAL BID PRN (Reason: Pain) Ozempic 0.25 mg or 0.5 mg(2 mg/1.5 mL) Pen Injector 0.75 mg SUBCUT MO Rx Instructions: for 4 doses cetirizine [Zyrtec] 10 mg Tablet 10 mg PO DAILY PRN (Reason: ALLERGIES) sulfamethoxazole-trimethoprim 800-160 mg tablet 1 tab PO MOWEFR tamsulosin 0.4 mg Capsule 0.4 mg PO BID calcitriol 0.25 mcg capsule 0.25 mcg PO DAILY insulin lispro [Humalog KwikPen Insulin] 100 unit/mL Insulin Pen See Rx Instructions .ROUTE .COMPLEX Rx Instructions: PER SLIDING SCALE AC 0-15=0 U 151-200=2 U 201-250=4 U 251-300=6 U 301-350= 8 U 351-400=10 U 401-450=12 U >450=14 U AND UPDATE famotidine 40 mg tablet 40 mg PO .COMPLEX Rx Instructions: 40 mg orally every Thursday, Thursday, Thursday polyethylene glycol 3350 [Miralax] 17 gram/dose powder 4 g PO DAILY diltiazem HCl 120 mg Capsule,Extended Release 24hr 120 mg PO DAILY Qty: 0 0RF Rx Instructions: Hold for heart rate <60 or SBP <100 or Changed prednisone 20 mg tablet 10 mg PO DAILY 30 Days Qty: 0 0RF Held magnesium oxide 400 MG tablet 400 mg PO TID Hold Instructions: Resume on 05/28/23. Please verify dosing with nephrology before resuming warfarin [Jantoven] 5 mg Tablet 5 mg PO DAILY@1700 Qty: 0 0RF Hold Instructions: Resume on 11/21/22. Hold for biopsy 11/20, resume and given the okay to do so by your physician. At that time would recommend resuming Coumadin and stopping aspirin Discontinued bupropion HCl 150 MG tablet sustained-release 12 hr 150 mg PO BID gabapentin 100 mg Capsule 100 mg PO TID metoprolol tartrate 50 mg Tablet 50 mg PO BID Qty: 0 0RF oxycodone-acetaminophen [oxycodone-acetaminophen] 5-325 mg tablet 1 tab PO Q6H PRN PRN (Reason: pain) 5 Days Qty: 20 0RF levofloxacin 500 mg tablet 250 mg PO DAILY Rx Instructions: MON, WED, THU UNTIL 11/22 Referrals / Follow Up: Willem Acosta MD [Med Staff - Active Staff] - 11/20/22 9:00 am (CT guided biopsy- Hold coumadin for 5 days prior. ) Nacny Sargent MD [Med Staff - Consulting] - See Referral Note (Please continue HD as previously arranged with Nephrology.) Davian Pete MD [Primary Care Provider] - Within 1 Week Coleman Salinas DO [Med Staff - Active Staff] - See Referral Note (Please follow-up in 4 weeks, may see GI CONTINUOUS IMPROVEMENT ENGINEER.) Disposition Disposition (needs filled in before D/C Order can be placed): [facility] Charges/Coding Visit Charges Inpatient E&M: 26851 Disch Hosp >30min
--- NOTE | 2022-11-19 14:01 | DIALYSIS ---
Hemodialysis x3.5 hours completed at 1330 on a 2K bath, tolerated well hemodynamically, agitated this morning and throughout dialysis treatment, A&Ox3, sleepy all morning but never appeared to sleep during tx, a bit restless, grabbing at dialysis machine parts, blood lines and access when resting with eyes closed, UF 3000mL, CritLine maintained profile B, accessed via LFA AVF using 16G needles, AVF worked well, feels small, closely monitoring access arm throughout tx due to the restlessness, needles pulled post tx and stasis achieved without issue, patient fell asleep after dialysis treatment ended, post BP 121/73
[2022-11-19] MEDS: Cefazolin 2 GM in 0.9% Normal Saline 100 ML IV (14:48)
[2022-11-19] MEDS: Acetaminophen 500 MG Tablet PO (14:54)
[2022-11-19] MEDS: Furosemide 20 MG Tablet PO (14:55)
[2022-11-19] MEDS: Metoprolol Tartrate 25 MG Tablet 12.5 MG PO (14:55)
[2022-11-19] MEDS: Tacrolimus 0.5 MG Capsule PO (14:57)
--- NOTE | 2022-11-19 15:09 | PN.RENAL_ITS ---
Subjective Subjective no new complaints, appears somewhat agitated today, seen on dialysis Objective Data Objective Data Vital Signs: Vital Signs Temp Pulse Resp BP Pulse Ox O2 Del Method O2 Flow Rate 98.9 F 94 16 128/63 H 97 Room Air 2 11/19/22 14:41 11/19/22 14:55 11/19/22 14:41 11/19/22 14:55 11/19/22 14:41 11/19/22 14:41 11/17/22 14:49 FiO2 30 11/17/22 02:55 Oxygen Flow Rate (L/min) [ 6 AMBULATING with Oxygen #1] Oxygen Flow Rate (L/min) [At 6 REST with Oxygen] Oxygen Flow Rate (L/min) 2 Oxygen Delivery Method Room Air Weight: 98.7 kg Body Mass Index (BMI) 33.0 Intake & Output: Intake and Output for Last 24 Hours 11/17/22 11/18/22 11/19/22 23:59 23:59 23:59 Intake Total 1914 / 1914 1020 / 1020 150 / 150 Output Total 1999 0 / 0 3000 / 3000 Balance -85 / -85 1020 / 1020 -2850 / -2850 Lab / Micro Data Result Diagrams: 11/19/22 04:37 11/19/22 04:37 Labs: Laboratory Results - last 24 hr 11/18/22 11:52: POC Glucose 252 H 11/18/22 15:33: POC Glucose 143 H 11/18/22 22:52: POC Glucose 311 H 11/19/22 04:37: WBC 13.7 H, RBC 2.98 L, Hgb 9.9 L, Hct 30.2 L, MCV 101.3 H, MCH 33.2 H, MCHC 32.8, RDW Std Deviation 52.2 H, RDW Coeff of Kecia 14.0, Plt Count 227, MPV 9.7, Immature Gran % (Auto) 4.400 H, Neut % (Auto) 74.3 H, Lymph % (Auto) 9.0 L, [place] % (Auto) 11.4 H, Eos % (Auto) 0.7, Baso % (Auto) 0.2, Absolute Neuts (auto) 10.2 H, Absolute Lymphs (auto) 1.24, Nucleated RBC % 0, Diff Path Review May , Macrocytosis 1+ 11/19/22 04:37: Sodium 129 L, Potassium 4.5, Chloride 94 L, Carbon Dioxide 25.0, Anion Gap 10, BUN 44 H, Creatinine 6.33 H, Estim Creat Clear Calc 9.61, Est GFR (MDRD) Af Amer 11 L, Est GFR (MDRD) Non-Af 9 L, BUN/Creatinine Ratio 7.0 L, Glucose 55 L, Calcium 8.8, Total Bilirubin 0.70, AST 19, ALT 12 L, Alkaline Phosphatase 83, Total Protein 6.4, Albumin 2.2 L, Globulin 4.2, Albumin/Globulin Ratio 0.5 L 11/19/22 04:37: PT 16.7 H, INR 1.3 11/19/22 09:08: POC Glucose 103 Micro: Microbiology 11/15/22 22:20 Sputum, Expectorated/Coughed Gram Stain - Final 11/15/22 22:20 Sputum, Expectorated/Coughed Respiratory Culture - Final Staphylococcus aureus 11/17/22 12:25 Blood Culture (Wb) - Line Draw Blood Culture - Preliminary No growth in 48 hours. 11/17/22 12:05 Blood Culture (Wb) - Venous Blood Culture - Preliminary No growth in 48 hours. 11/15/22 15:48 Blood Culture (Wb) - Right Hand Blood Culture - Final Staphylococcus aureus 11/15/22 15:22 Blood Culture (Wb) - Right Wrist Blood Culture - Final Staphylococcus aureus 11/10/22 11:13 Blood Culture (Wb) - Anticubital Right Blood Culture - Final No growth in 5 days. 11/15/22 14:00 Mucosa - Nose Respiratory Panel (PCR) - Final 11/15/22 14:00 Nasal Secretion SARS-CoV-2 Antigen (Rapid) - Final 11/15/22 14:00 Mucosa - Nose Influenza Types A,B Direct FA (AGUSTIN) - Final 11/10/22 08:25 Blood Culture (Wb) - Anticubital Right Blood Culture - Final No growth in 5 days. 11/10/22 23:19 Urine, Clean Catch Legionella Antigen - Final 11/10/22 23:19 Urine, Clean Catch Streptococcus pneumoniae Antigen (M - Final Physical Exam Narrative no obvious distress no JVD s1s2 no murmurs lungs clear anteriorly, faint expiratory wheeze abdomen soft, nontender No pitting edema noted bilateral lower legs Left forearm AV fistula positive thrill and bruit Assessment & Plan Assessment/Plan (1) ESRD on hemodialysis: PLAN: - ESRD, on hemodialysis at [facility] Thursday, Thursday, Thursday, Thursday schedule. HD today, seen on dialysis. -History of anemia of chronic disease, hemoglobin acceptable - New onset lung mass. Biopsy scheduled on Dysphagia. Status post endoscopy. Currently on modified diet
[2022-11-19 15:10] LABS: Bedside Glucose 155 mg/dL (74-106)
--- NOTE | 2022-11-19 15:19 | CASEMGMT ---
Discharge Planning Patients next of kin, Elaine, notified of transfer back to [facility] today. Melita Son
--- NOTE | 2022-11-19 15:22 | CASEMGMT ---
SW called [facility] to set up transport as is required by patient's insurance. SW requested [facility] and wheelchair. Trip number is [id number]. Plan: d/c back to [facility] under intermediate level of care. Arlette MELENDREZ
--- NOTE | 2022-11-19 16:06 | CASEMGMT ---
SW called [facility] and spoke with Catarino. [facility] 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 Arlette MELENDREZ
--- NOTE | 2022-11-19 16:06 | CASEMGMT ---
Discharge Planning [facility] notified via [facility] of pickup time. Melita Son
--- NOTE | 2022-11-19 17:27 | NURSING ---
report called to [facility]
[2022-11-20 09:28] LABS: Pathologist Review Reviewed
== END 2022-11-19 16:58 | disposition skilled nursing facility (03) | DRG 177 ==
LOC: ED 11:55 → PCU 16:22
PROVIDERS: Anesthesiology; Internal Medicine; Internal Medicine Critical Care Medicine; Internal Medicine Gastroenterology; Internal Medicine Nephrology; Emergency Provider Emergency Medicine; PCP Family Medicine; Visit Provider Family Medicine
PROC: 0DJ08ZZ Inspection of Upper Intestinal Tract, Via Natural or Artificial Opening Endoscopic (ICD-10-PCS; CPT 43235; principal; 2022-11-13 17:25)
DX: J15.211 Pneumonia due to Methicillin susceptible Staphylococcus aureus (principal); J96.21 Acute and chronic respiratory failure with hypoxia; G93.41 Metabolic encephalopathy; G92.8 Other toxic encephalopathy; K26.4 Chronic or unspecified duodenal ulcer with hemorrhage; N18.6 End stage renal disease; J96.22 Acute and chronic respiratory failure with hypercapnia; R78.81 Bacteremia; I13.2 Hypertensive heart and chronic kidney disease with heart failure and with stage 5 chronic kidney disease, or end stage renal disease; K76.6 Portal hypertension; J44.1 Chronic obstructive pulmonary disease with (acute) exacerbation; I50.32 Chronic diastolic (congestive) heart failure; I48.92 Unspecified atrial flutter; J44.0 Chronic obstructive pulmonary disease with (acute) lower respiratory infection; Z94.4 Liver transplant status; E87.1 Hypo-osmolality and hyponatremia; K22.0 Achalasia of cardia; E11.22 Type 2 diabetes mellitus with diabetic chronic kidney disease; Z99.2 Dependence on renal dialysis; I48.91 Unspecified atrial fibrillation; Z79.4 Long term (current) use of insulin; K70.30 Alcoholic cirrhosis of liver without ascites; E11.65 Type 2 diabetes mellitus with hyperglycemia; E87.5 Hyperkalemia; E03.9 Hypothyroidism, unspecified; K44.9 Diaphragmatic hernia without obstruction or gangrene; K20.0 Eosinophilic esophagitis; K22.2 Esophageal obstruction; E78.5 Hyperlipidemia, unspecified; D53.9 Nutritional anemia, unspecified; D63.8 Anemia in other chronic diseases classified elsewhere; F41.9 Anxiety disorder, unspecified; K31.819 Angiodysplasia of stomach and duodenum without bleeding; F10.11 Alcohol abuse, in remission; R13.14 Dysphagia, pharyngoesophageal phase; T42.6X5A Adverse effect of other antiepileptic and sedative-hypnotic drugs, initial encounter; E66.9 Obesity, unspecified; R91.8 Other nonspecific abnormal finding of lung field; R79.1 Abnormal coagulation profile; Z66 Do not resuscitate; Z68.33 Body mass index [BMI] 33.0-33.9, adult; N40.0 Benign prostatic hyperplasia without lower urinary tract symptoms; Z20.822 Contact with and (suspected) exposure to COVID-19; Z79.01 Long term (current) use of anticoagulants; Z79.82 Long term (current) use of aspirin; Z79.899 Other long term (current) drug therapy; Z87.891 Personal history of nicotine dependence; Z99.81 Dependence on supplemental oxygen
CPT/HCPCS: 36415; 36600; 71045; 71046; 71275; 74230; 80048; 80053; 80202; 82009; 82140; 82803; 82962; 83036; 83605; 83615; 83880; 84145; 84443; 84484; 84520; 85014; 85018; 85025; 85610; 85652; 86140; 87040; 87070; 87077; 87186; 87205; 87340; 87426; 87449; 87633; 87641; 87804; 88305; 90937; 92526; 92610; 92611; 93005; 93306; 94002; 94003; 94640; 94668; 94762; 97110; 97116; 97162; 97166; 97530; 97535; 97802; 97803; 99285; J7030; J7040; J7050; Q9967; A4216; G0257; J0585; J2405; J3490

== ENCOUNTER → 2022-11-10 | Outpatient (REF) | payer MEDICARE, MEDICAID, SELFPAY ==
[2022-11-10 10:14] LABS: ALB/GLOB Ratio 0.7 RATIO (0.9-2.4); AST(SGOT) 17 U/L (15-37); Alanine Aminotransfer ALT/SGPT 23 U/L (16-61); Albumin, Serum 2.9 g/dL (3.2-5.0); Alkaline Phosphatase 97 U/L (45-117); Anion Gap 13 (5-15); BUN 120 mg/dL (7-18); BUN/Creat Ratio 12.6 RATIO (10-20); Calcium,Total 8.6 mg/dL (8.5-10.1); Chloride 89 mmol/L (98-107); Creatinine, Serum 9.54 mg/dL (0.70-1.30); EST Glomerular Filtration Rate 6 mL/min (>60); Est Glom Filt Rate - Afr Amer 7 mL/min (>60); Globulin 4.2 g/dL (2.2-4.2); Glucose 133 mg/dL (74-106); Potassium 6.3 mmol/L (3.5-5.1); Protein, Total 7.1 g/dL (6.4-8.2); Sodium Level 124 mmol/L (136-145)
== END ==
LOC: OLS.SW 04:00
PROVIDERS: PCP Family Medicine; Visit Provider Family Medicine
DX: Z79.899 Other long term (current) drug therapy (principal)
CPT/HCPCS: 36415; 80053

== ENCOUNTER 2022-11-20 08:57 | Outpatient (CLI) | payer MEDICARE, MEDICAID, SELFPAY ==
[2022-11-20] VITALS (12 sets, daily range): BP systolic 93–130; BP diastolic 50–70; PULSE 81–95; RESP 12–19; TEMP 36.4; O2SAT 91–100; BMI 32.3
--- NOTE | 2022-11-20 | ASPIGT_PTH ---
PATIENT: TEX RICHMOND LOC: CT U#:[id number] AGE/SX: 76/M ROOM: RE11/20/[address]: Dr. Willem Acosta MD : 1945 BED: DIS: 11/20/2022 SPEC #: [id number] RECD: 11/20/22 10:30 STATUS: TEO ANALISA #: [id number] SHIRLENE: 11/20/22 00:[address]: Willem Acosta DEPT: SURGICAL PATHOLOGY RECD BY: Dafne Vargas ENTERED: 11/20/22 11:17 SP TYPE: ASP RAD OTHR DR: Dr. Davian Pete MD Tissues: Lung, NOS Procedures: FNA Specimen Adequacy Special Stain Group II Surgery Specimen Level IV Imprint (control) HEADER OPERATION: CT-guided lung biopsy PRE-OP DIAGNOSIS: Right upper lobe lung mass TISSUE SUBMITTED: Right upper lobe lung mass MICROSCOPIC DIAGNOSIS Right upper lobe lung mass, CT-guided core biopsy: Poorly differentiated squamous cell carcinoma. See comment. HUMBERTO:latrice 11/21/2022 COMMENT The specimen is evaluated at the time of biopsy by Dr. Sanchez. Immediate Evaluation = Malignant cells derived from non-small cell carcinoma. Extensive necrosis is also seen. Extensive necrosis is also noted. Immunohistochemistry ([id number]) supports the above diagnosis. Molecular studies on the tumor can be performed if clinically indicated. Please notify the laboratory if they are needed. Case has been reviewed in consultation with Dr. Arce who concurs with the above diagnosis. IDC:AM MICROSCOPIC DESCRIPTION Slides are reviewed. GROSS DESCRIPTION Received in fixative is one container labeled with the patient's name and designated right upper lobe lung. The specimen consists of multiple irregular fragments of martinez soft tissue that in aggregate measure 2.0 x 0.1 x <0.1 cm. The specimen is totally submitted in one cassette. Two touch imprints are prepared at the time of core biopsy. / HUMBERTO:latrice 11/20/2022 TC:0 CPT: 41691, 34181
--- NOTE | 2022-11-20 09:02 | CT_ITS ---
PROCEDURE: CT GUIDED CORE NEEDLE BIOPSY OF A right upper lobe LUNG LESION INDICATION: Male, 76 years old. RUL mass PHYSICIAN: Dr. Li Lilly CONSENT: Written informed consent was obtained having explained the risks, benefits and alternatives in detail with the patient who accepted the risks and agreed to proceed. Laboratory review and clinical assessment was performed. CONSCIOUS SEDATION PROTOCOL: The Drugs used were: 2 mg Versed, IV., and 50 mcg Fentanyl, IV. The sedation time was: 20 minutes. Conscious sedation was started at 9:50 AM and terminated at 10:10 AM. The conscious sedation protocol was independently monitored. RADIATION DOSAGE (If Supplied By Facility): CTDIvol = ( 23 ) mGy, DLP = ( 873.12 ) mGycm Individualized dose optimization techniques were used for this CT. TECHNIQUE: The patient was placed in the supine position. A noncontrast CT was performed to localize the lesion in the anterior right upper lobe . The skin surface was prepped and draped in a sterile fashion. 1% lidocaine was used for local anesthesia. Using CT guidance, a 20-gauge coaxial biopsy device was advanced to the periphery of the lesion. A total of 6 core specimens were obtained. The specimens were placed in a formalin solution. A post procedure CT demonstrated no adverse sequelae or pneumothorax. The patient tolerated the procedure well without adverse event. A negative biopsy does not exclude malignancy. Further imaging or clinical followup based on patient condition and degree of clinical suspicion for malignancy. Suggest rebiopsy, if biopsy results do not match with clinical scenario. CT/Biopsy/Inj or Needle Placement IMPRESSION: 1. CT directed core needle biopsy of the right upper lobe mass using CT image guidance with image documentation as described. Pathology results are pending. 2. Conscious Sedation protocol utilized with independent monitoring. Electronically Signed: Asher Jefferson MD at 10:41 EDT ,
[2022-11-20] MEDS: fentaNYL 100 MCG/2 ML Ampul IV (09:50)
[2022-11-20] MEDS: Midazolam 2 MG/2 ML Syringe IV (09:50)
[2022-11-20] MEDS: Lidocaine 2% (20 ml mdv) 20 ML Vial INFILT (10:00)
--- NOTE | 2022-11-20 10:00 | IMM_PTH ---
PATIENT: TEX RICHMOND LOC: CT U#:[id number] AGE/SX: 76/M ROOM: RE11/20/[address]: Dr. Willem Acosta MD : 1945 BED: DIS: 11/20/2022 SPEC #: [id number] RECD: 11/20/22 12:54 STATUS: TEO REQ #: [id number] SHIRLENE: 11/20/22 10:[address]: Willem Acosta DEPT: IMMUNOHISTOCHEMISTRY RECD BY: Mer Hanson ENTERED: 11/20/22 12:56 SP TYPE: IMMUNO OTHR DR: Dr. Davian Pete MD Tissues: Right upper lobe of lung, NOS Procedures: RCC (add) NAPSIN A (add) CK20 (add) CK5-6 (add) CK7 (add) CK8 (add) HEP PAR (add) TTF1 (add) Pankeratin (initial) P40 (add) PSAP (add) PHYSICIAN & [address] [address] SPECIMEN INFORMATION: Tissue Source: Right upper lobe lung mass Clinical Info: Right upper lobe lung mass Specimen Number: [id number] CPT code: 65680, 94925 x10 METHODOLOGY: Deparaffinized sections of prefer/formalin-fixed tissue or PAP/DQ stained slides are incubated with monoclonal/polyclonal antibodies/oligonucleotide probes. Localization is made via biotin free immunoperoxidase method. Appropriate controls are performed and reacted as expected. Results on target cell population are indicated in the following table: RESULTS: ANTIBODY / CLONE RESULT AE1-3 (AE1/AE3/PCK26) positive CK7 (OV-TL12/30) positive CK8 (25kycrG04) positive, focal CK20 (KS20.8) negative TTF-1 (8G7G3/1) negative Napsin A (Rabbit Polyclonal) negative HepPar (OCh1E5) negative RCC (PN-15) negative PSAP (PASE/4LJ) negative CK5-6 (D5 & 1684) positive P40 (BC28) positive These tests were developed and their performance characteristics determined by [facility]. They may not have been cleared or approved by the U.S. Food and Drug Administration. The FDA has determined that such clearance or approval is not necessary. The above immunohistochemical/dualISH markers are ordered and reviewed by the Pathologist. INTERPRETATION: Right upper lobe lung mass, CT-guided core biopsy: Poorly differentiated squamous cell carcinoma. HUMBERTO:latrice 11/21/2022
--- NOTE | 2022-11-20 10:20 | RAD_ITS ---
STUDY: X-RAY CHEST REASON FOR EXAM: Male, 76 years old. Post lung biopsy -- Immediately post lung biopsy TECHNIQUE: AP inspiration and expiration views. COMPARISON: None. FINDINGS: Immediate post right lung biopsy radiographs. Tiny right apical pneumothorax is seen. RAD/Chest Insp/Exp 2 View IMPRESSION: Tiny right apical pneumothorax seen on the immediate post right lung biopsy radiographs. Electronically Signed: Asher Jefferson MD at 10:48 EDT ,
--- NOTE | 2022-11-20 12:10 | RAD_ITS ---
STUDY: X-RAY CHEST REASON FOR EXAM: Male, 76 years old. Post lung biopsy -- 2 hours post lung biopsy TECHNIQUE: AP inspiration and expiration views. COMPARISON: Comparison is made with prior study done earlier in the day. FINDINGS: Two-hour delayed images following the right lung biopsy. Stable small right pneumothorax. The patient is asymptomatic. RAD/Chest Insp/Exp 2 View IMPRESSION: Stable small right pneumothorax on the 2 hour post right lung biopsy radiographs. The patient is asymptomatic. Electronically Signed: Asher Jefferson MD at 9:39 EDT ,
--- NOTE | 2022-11-20 12:45 | NURSING ---
REPORT CALLED TO RN AT [facility].
== END 2022-11-20 23:59 | disposition home or self-care (01) ==
LOC: CT 08:59
PROVIDERS: PCP Family Medicine; Referring Provider Internal Medicine Critical Care Medicine; Visit Provider Internal Medicine Critical Care Medicine
DX: C34.11 Malignant neoplasm of upper lobe, right bronchus or lung (principal); J85.0 Gangrene and necrosis of lung
CPT/HCPCS: 32408; 71046; 77012; 88172; 88305; 88313; 88341; 88342; 99156; J7050; C2613

== ENCOUNTER → 2022-12-04 | Outpatient (REF) | payer MEDICARE, MEDICAID, SELFPAY ==
[2022-12-04 10:09] LABS: Hematocrit 28.3 % (40-54); Hemoglobin 8.7 g/dL (13.0-16.5); Mean Corp Hgb Conc 30.7 g/dL (32-36); Mean Corpuscular Hgb 32.6 pg (27.0-32.0); Platelet Count 334 K/mm3 (150-450); RBC Distribution Width CV 13.1 % (11.6-14.6); RBC Distribution Width SD 51.1 fl (35.1-43.9); Red Blood Count 2.67 M/mm3 (4.6-6.2); White Blood Count 10.1 K/mm3 (4.4-11.0)
[2022-12-04 10:51] LABS: Anion Gap 7 (5-15); BUN 35 mg/dL (7-18); BUN/Creat Ratio 6.6 RATIO (10-20); Calcium,Total 9.7 mg/dL (8.5-10.1); Chloride 96 mmol/L (98-107); Creatinine, Serum 5.33 mg/dL (0.70-1.30); EST Glomerular Filtration Rate 11 mL/min (>60); Est Glom Filt Rate - Afr Amer 14 mL/min (>60); Glucose 89 mg/dL (74-106); Potassium 4.8 mmol/L (3.5-5.1); Sodium Level 133 mmol/L (136-145)
== END ==
LOC: OLS.SW 05:00
PROVIDERS: PCP Family Medicine; Visit Provider Family Medicine
DX: E11.9 Type 2 diabetes mellitus without complications (principal)
CPT/HCPCS: 36415; 80048; 85027

== ENCOUNTER → 2022-12-05 | Outpatient (REF) | payer MEDICARE, MEDICAID, SELFPAY ==
[2022-12-05 15:36] LABS: Absolute Lymphocyte Count 1.65 X10^3/uL (0.83-4.51); Absolute Neutrophil Count 6.2 X10^3/uL (2.0-7.7); Basophil# 0.08 X10^3/uL; Basophil% 0.8 % (0-1); Eosinophils% 2.9 % (0-5); Hematocrit 28.9 % (40-54); Lymphocyte # 1.65 X10^3/ul (0.83-4.51); Lymphocyte % 16.2 % (19-41); Mean Corp Hgb Conc 31.1 g/dL (32-36); Mean Corpuscular Volume 105.9 fL (80-94); Mean Platelet Vol. 9.7 fl (6.2-12.0); Monocyte# 1.66 X10^3/uL; Monocyte% 16.3 % (0-10); NRBC Flagged by Analyzer 0 % (0-5); Neutrophil # 6.19 X10^3/uL (2.7-7.7); Neutrophil % 60.9 % (47-70); POSITIVE DIFFERENTIAL YES; Platelet Count 349 K/mm3 (150-450); RBC Distribution Width CV 13.5 % (11.6-14.6); RBC Distribution Width SD 52.4 fl (35.1-43.9); Red Blood Count 2.73 M/mm3 (4.6-6.2); White Blood Count 10.2 K/mm3 (4.4-11.0)
[2022-12-05 15:57] LABS: ALB/GLOB Ratio 0.6 RATIO (0.9-2.4); AST(SGOT) 12 U/L (15-37); Alanine Aminotransfer ALT/SGPT 8 U/L (16-61); Albumin, Serum 2.4 g/dL (3.2-5.0); Alkaline Phosphatase 110 U/L (45-117); Anion Gap 7 (5-15); BUN 20 mg/dL (7-18); BUN/Creat Ratio 5.3 RATIO (10-20); Calcium,Total 9.3 mg/dL (8.5-10.1); Chloride 94 mmol/L (98-107); Creatinine, Serum 3.77 mg/dL (0.70-1.30); EST Glomerular Filtration Rate 17 mL/min (>60); Est Glom Filt Rate - Afr Amer 20 mL/min (>60); Globulin 4.3 g/dL (2.2-4.2); Glucose 190 mg/dL (74-106); Potassium 4.3 mmol/L (3.5-5.1); Protein, Total 6.7 g/dL (6.4-8.2); Sodium Level 132 mmol/L (136-145)
[2022-12-05 16:08] LABS: Differential Indicated SCAN CRITERIA MET
[2022-12-05 16:10] LABS: Anisocytosis RARE; Macrocytosis RARE
== END ==
LOC: OLS.SW 14:48
PROVIDERS: PCP Family Medicine; Visit Provider Family Medicine
DX: A49.9 Bacterial infection, unspecified (principal)
CPT/HCPCS: 36415; 80053; 85025

== ENCOUNTER → 2022-12-08 | Outpatient (REF) | payer MEDICARE, MEDICAID, SELFPAY ==
[2022-12-08 08:13] LABS: INR Fingerstick 5.3; Prothrombin Time Fingerstick 54.6 SEC (11.7-14.9)
[2022-12-08 09:22] LABS: Prothrombin Time (Protime)PT. 41.2 SECONDS (11.7-14.9)
[2022-12-08 09:32] LABS: International Normalized Ratio 4.2
== END ==
LOC: OLS.SW 04:00
PROVIDERS: PCP Family Medicine; Referring Provider Family Medicine; Visit Provider Family Medicine
DX: Z79.01 Long term (current) use of anticoagulants (principal)
CPT/HCPCS: 36415; 36416; 85610

== ENCOUNTER → 2022-12-09 | Outpatient (REF) | payer MEDICARE, MEDICAID, SELFPAY ==
[2022-12-09 08:03] LABS: INR Fingerstick 4.5
[2022-12-09 08:36] LABS: International Normalized Ratio 3.4
== END ==
LOC: OLS.SW 05:00
PROVIDERS: PCP Family Medicine; Referring Provider Family Medicine; Visit Provider Family Medicine
DX: Z79.01 Long term (current) use of anticoagulants (principal)
CPT/HCPCS: 36416; 85610

== ENCOUNTER → 2022-12-10 | Outpatient (REF) | payer MEDICARE, MEDICAID, SELFPAY ==
[2022-12-10 08:41] LABS: INR Fingerstick 2.9; Prothrombin Time Fingerstick 30.9 SEC (11.7-14.9)
== END ==
LOC: OLS.SW 05:00
PROVIDERS: PCP Family Medicine; Visit Provider Family Medicine
DX: Z79.01 Long term (current) use of anticoagulants (principal)
CPT/HCPCS: 36416; 85610

== ENCOUNTER → 2022-12-11 05:00 | Outpatient (REF) | payer MEDICARE, MEDICAID, SELFPAY ==
[2022-12-11 09:22] LABS: Hematocrit 25.9 % (40-54); Mean Corp Hgb Conc 30.9 g/dL (32-36); Mean Corpuscular Hgb 32.8 pg (27.0-32.0); Mean Corpuscular Volume 106.1 fL (80-94); Mean Platelet Vol. 10.2 fl (6.2-12.0); Platelet Count 255 K/mm3 (150-450); RBC Distribution Width CV 13.5 % (11.6-14.6); RBC Distribution Width SD 51.7 fl (35.1-43.9); Red Blood Count 2.44 M/mm3 (4.6-6.2); White Blood Count 11.8 K/mm3 (4.4-11.0)
[2022-12-11 09:34] LABS: Anion Gap 9 (5-15); BUN 64 mg/dL (7-18); Calcium,Total 9.1 mg/dL (8.5-10.1); Chloride 98 mmol/L (98-107); Creatinine, Serum 6.43 mg/dL (0.70-1.30); EST Glomerular Filtration Rate 9 mL/min (>60); Est Glom Filt Rate - Afr Amer 11 mL/min (>60); Glucose 112 mg/dL (74-106); Potassium 3.8 mmol/L (3.5-5.1); Sodium Level 136 mmol/L (136-145)
== END ==
LOC: OLS.SW 05:00
PROVIDERS: PCP Family Medicine; Visit Provider Family Medicine
DX: R78.81 Bacteremia (principal)
CPT/HCPCS: 36415; 80048; 85027

== ENCOUNTER → 2022-12-12 | Outpatient (REF) | payer MEDICARE, MEDICAID, SELFPAY ==
[2022-12-12 08:57] LABS: International Normalized Ratio 1.3; Prothrombin Time (Protime)PT. 16.6 SECONDS (11.7-14.9)
== END ==
LOC: OLS.SW 06:20
PROVIDERS: PCP Family Medicine; Visit Provider Family Medicine
DX: Z79.01 Long term (current) use of anticoagulants (principal)
CPT/HCPCS: 36415; 85610

== ENCOUNTER → 2022-12-15 | Outpatient (REF) | payer MEDICARE, MEDICAID, SELFPAY ==
[2022-12-15 08:10] LABS: INR Fingerstick 1.5; Prothrombin Time Fingerstick 17.3 SEC (11.7-14.9)
== END ==
LOC: OLS.SW 05:00
PROVIDERS: PCP Family Medicine; Visit Provider Family Medicine
DX: I48.92 Unspecified atrial flutter (principal)
CPT/HCPCS: 36416; 85610

== ENCOUNTER → 2022-12-18 | Outpatient (REF) | payer MEDICARE, MEDICAID, SELFPAY ==
[2022-12-18 08:19] LABS: INR Fingerstick 1.9; Prothrombin Time Fingerstick 20.8 SEC (11.7-14.9)
== END ==
LOC: OLS.SW 05:00
PROVIDERS: PCP Family Medicine; Visit Provider Family Medicine
DX: Z79.01 Long term (current) use of anticoagulants (principal)
CPT/HCPCS: 36416; 85610

== ENCOUNTER → 2022-12-25 | Outpatient (REF) | payer MEDICARE, MEDICAID, SELFPAY ==
[2022-12-25 09:05] LABS: INR Fingerstick 2.2; Prothrombin Time Fingerstick 24.2 SEC (11.7-14.9)
== END ==
LOC: OLS.SW 05:00
PROVIDERS: PCP Family Medicine; Visit Provider Family Medicine
DX: I48.92 Unspecified atrial flutter (principal); Z79.01 Long term (current) use of anticoagulants
CPT/HCPCS: 36416; 85610

== ENCOUNTER → 2022-12-29 | Outpatient (CLI) | payer MEDICARE, MEDICAID, SELFPAY ==
--- NOTE | 2022-12-29 16:31 | MRI_ITS ---
EXAM: MR HEAD WITHOUT INTRAVENOUS CONTRAST CLINICAL INDICATION: STAGING NSCLC, WAITING ON BIOPSY POSSIBLE LUNG CANCER TECHNIQUE: Multiplanar and multisequence MR images of the brain were obtained without intravenous contrast. COMPARISON: No relevant prior studies available. FINDINGS: BRAIN AND EXTRA-AXIAL SPACES: Abnormal T2 signal in the deep cerebral white matter is consistent with chronic small vessel ischemic/degenerative changes. The cerebral and cerebellar sulci are prominent consistent with brain atrophy. No intra- or extra-axial hemorrhage. No intracranial mass or mass effect. Basal cisterns are patent. SELLA: Unremarkable. Normal sella turcica, pituitary gland, infundibular stalk, optic chiasm and hypothalamus. AUDITORY SYSTEM: Unremarkable. The internal auditory canals are patent. BONES/JOINTS: Unremarkable. No discrete lytic or blastic abnormalities. SINUSES: Unremarkable as visualized. Clear. MASTOID AIR CELLS: Unremarkable as visualized. Clear. ORBITS: Unremarkable as visualized. Both globes, extraocular muscles, optic nerves and retrobulbar fat appear unremarkable. VASCULATURE: Unremarkable as visualized. Normal flow voids in the major intracranial circulation. MRI/Brain without Contrast IMPRESSION: 1. Chronic small vessel ischemic/degenerative changes. 2. Cerebral and cerebellar atrophy. Electronically Signed: Clayton Nix MD at 2:10 EDT ,
== END | disposition home or self-care (01) ==
LOC: MRI 16:27
PROVIDERS: PCP Family Medicine; Referring Provider Internal Medicine Medical Oncology; Visit Provider Internal Medicine Medical Oncology
DX: C34.90 Malignant neoplasm of unspecified part of unspecified bronchus or lung (principal); G31.9 Degenerative disease of nervous system, unspecified
CPT/HCPCS: 70551

== ENCOUNTER → 2022-12-31 | Outpatient (CLI) | payer MEDICARE, MEDICAID, SELFPAY ==
--- NOTE | 2022-12-31 09:25 | US_ITS ---
STUDY: ABDOMINAL ULTRASOUND - RIGHT UPPER QUADRANT REASON FOR VISIT: Male, 77 years old . History of prior liver transplant. TECHNIQUE: Ultrasound evaluation of the right upper quadrant was performed with real-time and static ruzi-scale imaging. TECHNICAL QUALITY: Limited. Examination limited due to the patient?s condition. COMPARISON: Comparison is made with prior CT scan the abdomen and pelvis dated September 14, 2020. FINDINGS: Liver: The liver is mildly enlarged and measures 18.8 cm. There is increased echogenicity consistent with fatty infiltration. The bile ducts are within normal limits. There is hepatic color flow. The direction of portal flow is hepatopetal. There is no demonstrated mass lesion. Gallbladder: The gallbladder is not visualized presumably secondary to cholecystectomy. Common Bile Duct (C.B.D.): The common bile duct measures 4.2 mm. Pancreas: There is nonvisualization of the pancreas due to overlying bowel gas. Right Kidney: Normal size of the right kidney. The right kidney measures 11.2 cm x 4.1 cm x 4.4 cm. Normal renal cortex. The right cortex measures 1.3 cm. There is no demonstrated renal mass or cyst. There is no right hydronephrosis. US/Abdomen Limited IMPRESSION: Mild hepatomegaly and fatty infiltration of the liver. The gallbladder was not visualized and most likely status post cholecystectomy. Electronically Signed: Asher Jefferson MD at 14:59 EDT ,
--- NOTE | 2022-12-31 09:25 | US_ITS ---
STUDY: ABDOMINAL ULTRASOUND - ELASTOGRAPHY REASON FOR VISIT: Male, 77 years old. Prior liver transplantation. TECHNIQUE: Liver stiffness measurements were obtained on a [employer] RS 85 ultrasound machine using a CA 1-7 probe following the SRU guidelines. 3 measurements were obtained using a 2-D-SWE method. TheIQR/M was 21 % suggesting a quality data set. TECHNICAL QUALITY: Adequate. COMPARISON: None. FINDINGS: Liver: There is no demonstrated mass lesion. Median liver stiffness measured 8.7 kPa. Abdomen: There is no demonstrated mass lesion. US/Elastography Parenchyma/Organ IMPRESSION: Liver stiffness measures 8.7 kPa compatible with F2-F3 (Mild to moderate liver fibrosis) Metavir score. Electronically Signed: Asher Jefferson MD at 15:01 EDT ,
== END | disposition home or self-care (01) ==
PROVIDERS: PCP Family Medicine; Referring Provider Internal Medicine Gastroenterology; Visit Provider Internal Medicine Gastroenterology
DX: Z94.4 Liver transplant status (principal); R16.0 Hepatomegaly, not elsewhere classified; K76.0 Fatty (change of) liver, not elsewhere classified
CPT/HCPCS: 76705; 76981

== ENCOUNTER → 2023-01-08 05:00 | Outpatient (REF) | payer MEDICARE, MEDICAID, SELFPAY ==
[2023-01-08 09:29] LABS: INR Fingerstick 2.6; Prothrombin Time Fingerstick 27.7 SEC (11.7-14.9)
== END ==
LOC: OLS.SW 05:00
PROVIDERS: PCP Family Medicine; Visit Provider Family Medicine
DX: Z79.01 Long term (current) use of anticoagulants (principal)
CPT/HCPCS: 36416; 85610

== ENCOUNTER → 2023-01-19 | Outpatient (REF) | payer MEDICARE, MEDICAID, SELFPAY ==
[2023-01-19 09:02] LABS: Absolute Lymphocyte Count 1.25 X10^3/uL (0.83-4.51); Absolute Neutrophil Count 8.3 X10^3/uL (2.0-7.7); Basophil# 0.04 X10^3/uL; Basophil% 0.4 % (0-1); Eosinophil# 0.22 X10^3/uL; Hemoglobin 8.9 g/dL (13.0-16.5); Lymphocyte # 1.25 X10^3/ul (0.83-4.51); Lymphocyte % 11.5 % (19-41); Mean Corp Hgb Conc 31.8 g/dL (32-36); Mean Corpuscular Hgb 32.8 pg (27.0-32.0); Mean Corpuscular Volume 103.3 fL (80-94); Mean Platelet Vol. 11.2 fl (6.2-12.0); Monocyte# 0.98 X10^3/uL; NRBC Flagged by Analyzer 0 % (0-5); Neutrophil # 8.29 X10^3/uL (2.7-7.7); Neutrophil % 76.5 % (47-70); Platelet Count 256 K/mm3 (150-450); RBC Distribution Width CV 14.5 % (11.6-14.6); RBC Distribution Width SD 54.3 fl (35.1-43.9); Red Blood Count 2.71 M/mm3 (4.6-6.2); White Blood Count 10.9 K/mm3 (4.4-11.0)
[2023-01-19 09:20] LABS: ALB/GLOB Ratio 0.8 RATIO (0.9-2.4); AST(SGOT) 17 U/L (15-37); Alanine Aminotransfer ALT/SGPT 23 U/L (16-61); Alkaline Phosphatase 68 U/L (45-117); Anion Gap 7 (5-15); BUN 52 mg/dL (7-18); BUN/Creat Ratio 9.3 RATIO (10-20); Calcium,Total 9.1 mg/dL (8.5-10.1); Chloride 91 mmol/L (98-107); EST Glomerular Filtration Rate 11 mL/min (>60); Est Glom Filt Rate - Afr Amer 13 mL/min (>60); Glucose 54 mg/dL (74-106); Potassium 3.9 mmol/L (3.5-5.1); Sodium Level 128 mmol/L (136-145)
[2023-01-21 06:09] LABS: Tacrolimus (FK506) 2.7 ng/mL (2.0-20.0)
== END ==
LOC: OLS.SW 05:00
PROVIDERS: PCP Family Medicine; Visit Provider Family Medicine
DX: Z94.4 Liver transplant status (principal)
CPT/HCPCS: 36415; 80053; 80197; 85025

== ENCOUNTER 2023-01-22 08:52 | Day surgery (SDC) | payer MEDICARE, MEDICAID, SELFPAY ==
[2023-01-22] VITALS (8 sets, daily range): BP systolic 103–126; BP diastolic 64–86; PULSE 72–82; RESP 16–18; TEMP 36–36.8; O2SAT 95–100; BMI 35.0
[2023-01-22] MEDS: Botulinum Toxin A 100 Units Vial IM (07:00)
[2023-01-22 09:18] LABS: INR Fingerstick 1.9; Prothrombin Time Fingerstick 20.5 SEC (11.7-14.9)
[2023-01-22 09:41] LABS: International Normalized Ratio 1.6; Prothrombin Time (Protime)PT. 18.8 SECONDS (11.7-14.9)
[2023-01-22] MEDS: Ipratropium/Albuterol Sulfate 3 ML AMPUL.NEB INHALATION (09:53)
--- NOTE | 2023-01-22 10:47 | HP.PCM_ITS ---
History and Physical Date of Admission: 01/22/23 76 M who presented to [facility] on 11/10/2022 secondary to increasing weakness and falls.? Patient reportedly had been to the ER on the and was found to have a medial right upper lobe mass and a patchy left lower lobe infiltrate and was started on Levaquin.? Patient reportedly was sent back to the emergency department, but did not receive Levaquin over the weekend.? Patient had increasing weakness and reportedly had fallen 4 other times.? Patient is dialysis dependent and is a poor historian.?? PMH ANCA vasculitis; DMII historically uncontrolled with noncompliance; CKD stage 4; respiratory failure; A-flut; HF; history of alcohol abuse; hepatic cirrhosis s/p liver transplant 2006 at [facility] with subsequent alcohol abuse requiring hospitalization. [facility] established 2017 for dysphagia with a history of achalasia noted on esophagram 2008. Esophagram 4?vigorous achalasia. EGD 6..?esophageal erosion; portal HTN gastropathy; duodenal nodules. [facility] Hospitalization 2.5.18-2.9.18 for management of perforated duodenal ulcer. EGD 2..18?erosive duodenitis with superficial ulcers; large punched out duodenal ulcerations with suspicion for full thickeness perforation likely into retroperitoneal tissue; gastritis; esophagitis; no varices. H.Pylori negative. Outpatient workup Dr. Morales: EGD 3?portal HTN gastropathy [facility] hospitalization [id number] for management of acute alcohol abuse. [facility] outpatient: US RUQ and vascular 1..20 [facility]?normal liver and spleen. Trace perihepatic ascites; normal vasculature flow. *[facility] established 11.07.22. He is unsure as to why he is here. BM occur QOD or less with some rectal pain. No abdominal pain. s/p liver transplant 2006 and is continuing with his medications and is without alcohol use. Lives at [facility] for permanent residency. Dysphagia with PO intake and spontaneous regurgitation. He is enrolled in [employer] services. [facility] Medical History Abdominal pain [id number] kidney injury Alcohol abuse Alcohol abuse following liver transplant Alcohol withdrawal Anemia Arthritis Arthritis of carpometacarpal (CMC) joint of right thumb Chronic dermatitis Cirrhosis COPD (chronic obstructive pulmonary disease) COPD exacerbation CPAP (continuous positive airway pressure) dependence Depression Diabetes mellitus Dietary restriction Dyspnea Encephalopathy Former smoker Fracture of left olecranon process Gastric reflux Gout History of anxiety History of CHF (congestive heart failure) History of echocardiogram History of IBS History of renal disease History of skin cancer History of ulceration HTN (hypertension) Hypokalemia Hypoxia Infected ulcer of skin Macular degeneration Nausea & vomiting Non-healing non-surgical wound [facility] resident On home oxygen therapy OLVIN (obstructive sleep apnea) Shortness of breath on exertion Superficial ulcer of skin Thyroid disease Urticaria Venous insufficiency of both lower extremities Walker as ambulation aid Wears glasses Home Medications levothyroxine 75 mcg tablet 75 mcg PO DAILY thyroid 11/19/13 [History Last Taken 06/10/22] tacrolimus 1 mg capsule, immediate-release 0.5 mg PO BID transplant med 06/09/16 [History Last Taken 06/10/22] allopurinol 100 mg tablet 100 mg PO DAILY Gout 07/07/19 [History Last Taken 06/10/22] bupropion HCl 150 mg tablet,12 hr sustained-release 150 mg PO BID major depressive disorder 07/07/19 [History Last Taken 06/10/22] multivit with minerals-folic acid-lycopene 0.4 mg-600 mcg tablet 1 tablet PO DAILY supplement 07/07/19 [History Last Taken 06/10/22] aspirin 81 mg tablet,delayed release 81 mg PO DAILY@0800 [facility] 08/30/20 [History Last Taken 06/10/22] ergocalciferol (vitamin D2) 1,250 mcg (50,000 unit) capsule 50,000 unit PO MO supplement 08/30/20 [History Last Taken 05/22/22] ketoconazole 2 % shampoo 1 applic TP MOWEFR dry scalp 08/30/20 [History Last Taken 06/09/22] magnesium oxide 400 mg PO TID supplement 08/30/20 [History Last Taken 06/10/22] sertraline 100 mg tablet 100 mg PO QHS depression 08/30/20 [History Last Taken 06/09/22] fluticasone propionate 50 mcg/actuation nasal spray,suspension (Flonase Allergy Relief) 2 spray intranasal DAILY allergies 03/11/21 [History Last Taken 06/10/22] ipratropium 0.5 mg-albuterol 3 mg (2.5 mg base)/3 mL nebulization soln 3 ml inhalation Q6H PRN Wheezing 03/11/21 [History Last Taken 06/10/22] sennosides 8.6 mg tablet (senna) 8.6 mg PO PRN PRN Constipation 03/11/21 [History Last Taken Unknown] zolpidem 5 mg tablet 5 mg PO QHS PRN Insomnia 03/11/21 [History Last Taken 06/09/22] acetaminophen 500 mg tablet 500 mg PO Q6H PRN Pain 02/06/22 [History Last Taken Unknown] bisacodyl 10 mg rectal suppository 10 mg IN Q18H PRN Constipation 02/06/22 [History Last Taken Unknown] calcium carbonate 200 mg calcium (500 mg) chewable tablet (Tums) 200 mg PO Q18H PRN Indigestion 02/06/22 [History Last Taken Unknown] docusate sodium 100 mg capsule (Colace) 100 mg PO DAILY PRN Constipation 02/06/22 [History Last Taken Unknown] furosemide 20 mg tablet (Lasix) 20 mg PO DAILY 02/06/22 [History Last Taken 06/10/22] insulin glargine 100 unit/mL (3 mL) subcutaneous pen (Lantus Solostar U-100 Insulin) 50 unit subcut BREAKFAST DIABETES 02/06/22 [History Last Taken 11/09/22] loperamide 2 mg capsule (Imodium A-D) 2 mg PO Q6H PRN Diarrhea 02/06/22 [History Last Taken 06/10/22] menthol 4 % topical gel (Biofreeze (menthol)) 1 applic topical BID PRN Pain 02/06/22 [History Last Taken Unknown] miconazole nitrate 2 % topical cream 1 applic topical QHS 02/06/22 [History Last Taken 06/10/22] gabapentin 100 mg capsule 100 mg PO TID 04/04/22 [History Last Taken 06/10/22] semaglutide 0.25 mg or 0.5 mg (2 mg/1.5 mL) subcutaneous pen injector (Ozempic) 0.75 mg subcut MO 04/04/22 [History Last Taken 06/09/22] prednisone 20 mg tablet 20 mg PO DAILY 04/24/22 [History Last Taken 06/10/22] calcitriol 0.25 mcg capsule 0.25 mcg PO DAILY KIDNEY DISEASE 06/10/22 [History Last Taken 06/10/22] cetirizine 10 mg tablet (Zyrtec) 10 mg PO DAILY PRN ALLERGIES 06/10/22 [History Last Taken 06/10/22] sulfamethoxazole 800 mg-trimethoprim 160 mg tablet 1 tab PO MOWEFR INFECTION PREVENTION 06/10/22 [History Last Taken 06/09/22] tamsulosin 0.4 mg capsule 0.4 mg PO BID PROSTAIT 06/10/22 [History Last Taken 06/10/22] diltiazem HCl 120 mg capsule,extended release 24 hr 120 mg PO DAILY #0 caps 06/15/22 [Rx Last Taken Unknown] metoprolol tartrate 50 mg tablet 50 mg PO BID #0 tabs 06/15/22 [Rx Last Taken Unknown] warfarin 5 mg tablet (Jantoven) 5 mg PO DAILY@1700 #0 tabs 06/15/22 [Rx Last Taken Unknown] oxycodone-acetaminophen 5 mg-325 mg tablet 1 tab PO Q6H PRN PRN pain 5 days #20 TABLETS 07/14/22 [Rx Last Taken Unknown] famotidine 40 mg tablet 40 mg PO .COMPLEX REFLUX 11/10/22 [History Last Taken Unknown] insulin lispro 100 unit/mL subcutaneous pen (Humalog KwikPen (U-100) Insulin) See Rx Instructions .Route .COMPLEX DIABETES 11/10/22 [History Last Taken 11/09/22] levofloxacin 500 mg tablet 250 mg PO DAILY ANTIBIOTIC 11/10/22 [History Last Taken 11/08/22] polyethylene glycol 3350 17 gram/dose oral powder (Miralax) 4 g PO DAILY CONSTIPATION 11/10/22 [History Last Taken 11/09/22] Allergy/AdvReac Type Severity Reaction Status Date / Time cortisone [Cortisone] Allergy Angioedema Verified 11/10/22 08:18 Penicillins Allergy Unknown Verified 11/10/22 08:18 Surgical History History of esophagogastroduodenoscopy (EGD) History of excision of pilonidal cyst History of knee surgery History of parathyroid surgery History of tonsillectomy Hx of thumb surgery Social History household members: none housing: half-way Smoking Status: Former smoker alcohol intake: former substance use type: does not use ROS Constitutional Constitutional: Reports weakness; Denies chills or fever(s) ENT HEENT: Denies loss taste/smell or nasal congestion Cardiovascular Cardiovascular: Reports dyspnea on exertion, irregular heart rhythm, leg edema and palpitations; Denies chest pain Respiratory/Chest Respiratory/Chest: Reports dyspnea on exertion, portable oxygen @ home and shortness of breath at rest; Denies productive cough Gastrointestinal Gastrointestinal: Reports anorexia; Denies abdominal pain, diarrhea, dry heaves or nausea Genitourinary Genitourinary: Denies change in urinary stream Musculoskeletal Musculoskeletal: Reports other Details: weakness Integumentary Integumentary: Reports other Details: heal wounds, legs wrapped, mild BLE, improved from baseline. Psychiatric Psychiatric: Denies anxiety or confusion Endocrine Endocrinology: Reports fatigue Hematologic/Lymphatic Hematologic/Lymphatic: Reports anemia Physical Exam Narrative no obvious distress no pallor no icterus no JVD s1s2 no murmurs lungs clear abdomen soft no organomegaly no edema Lab / Micro Data Result Diagrams: 11/11/22 05:14 11/12/22 06:55 Labs: Laboratory Results - last 24 hr 11/11/22 16:53: POC Glucose 366 H 11/11/22 21:18: POC Glucose 220 H 11/12/22 06:49: POC Glucose 103 11/12/22 06:55: Sodium 134 L, Potassium 4.3, Chloride 96 L, Carbon Dioxide 28.0, Anion Gap 10, BUN 55 H, Creatinine 5.33 H, Estim Creat Clear Calc 11.41, Est GFR (MDRD) Af Amer 14 L, Est GFR (MDRD) Non-Af 11 L, BUN/Creatinine Ratio 10.3, Glucose 97, Calcium 9.2 11/12/22 11:16: POC Glucose 108 H Micro: Microbiology 11/10/22 11:13 Blood Culture (Wb) - Anticubital Right Blood Culture - Preliminary No growth in 48 hours. 11/10/22 08:25 Blood Culture (Wb) - Anticubital Right Blood Culture - Preliminary No growth in 48 hours. Assessment & Plan Assessment/Plan (1) Achalasia of esophagus: (2) Alcoholic cirrhosis of liver: (3) Encephalopathy acute: (4) Mass of upper lobe of right lung: PLAN: Plan Achalasia of the esophagus identified on barium esophagram.? Typically the treatment for this would be to do esophageal manometry to determine if it is type I or type II achalasia and then subsequently offered the patient myotomy versus balloon dilation plus or minus Botox.? I do not think he is a candidate for Heller myotomy due to multiple other issues at this including pulmonary pretension, COPD, diabetes mellitus, obesity, immunosuppression secondary to liver transplant.? Therefore we will go through with the EGD and Botox to the distal esophagus to hopefully help his esophageal dysphagia to liquids and solids. I have examined the patient and the H&P has been reviewed. There are no clinical changes since date of exam.
[2023-01-22] MEDS: 0.9% Normal Saline (Pres. free 10 ML Vial (10:50)
[2023-01-22] MEDS: 0.9% Saline Lock 10 ML Syringe IV (11:10)
--- NOTE | 2023-01-22 11:14 | OP.EGD_ITS ---
Patient Name: Vineet Moise Procedure Date: 01/22/2023 10:49 AM Date of : 1945 Age: 77 Procedure: Upper GI endoscopy Indications: Dysphagia Providers: Coleman Salinas DO Referring MD: Davian Pete MD Medicines: Monitored Anesthesia Care Patient Profile: This is a 77 year old male. Refer to note in patient chart for documentation of history and physical. Patient has symptoms of dysphagia with both liquids and solids. Complications: No immediate complications. Procedure: Pre-Anesthesia Assessment: - Prior to the procedure, a History and Physical was performed, and patient medications and allergies were reviewed. The risks and benefits of the procedure and the sedation options and risks were discussed with the patient. All questions were answered and informed consent was obtained. Patient identification and proposed procedure were verified by the physician in the pre-procedure area. Mental Status Examination: alert and oriented. Airway Examination: normal oropharyngeal airway and neck mobility. Respiratory Examination: clear to auscultation. CV Examination: normal. Prophylactic Antibiotics: The patient does not require prophylactic antibiotics. Prior Anticoagulants: The patient has taken no previous anticoagulant or antiplatelet agents. ASA Grade Assessment: III - A patient with severe systemic disease. After reviewing the risks and benefits, the patient was deemed in satisfactory condition to undergo the procedure. The anesthesia plan was to use monitored anesthesia care (MAC). Immediately prior to administration of medications, the patient was re-assessed for adequacy to receive sedatives. The heart rate, respiratory rate, oxygen saturations, blood pressure, adequacy of pulmonary ventilation, and response to care were monitored throughout the procedure. The physical status of the patient was re-assessed after the procedure. After obtaining informed consent, the endoscope was passed under direct vision. Throughout the procedure, the patient's blood pressure, pulse, and oxygen saturations were monitored continuously. The gastroscope was introduced through the mouth, and advanced to the second part of duodenum. The upper GI endoscopy was accomplished without difficulty. The patient tolerated the procedure well. Scope In: 11:01:09 AM Scope Out: 11:07:41 AM Total Procedure Duration Time 0 hours 6 minutes 32 seconds Findings: Abnormal motility was noted in the lower third of the esophagus. The cricopharyngeus was normal. There is spasticity of the esophageal body. The distal esophagus/lower esophageal sphincter is patulous. Tertiary peristaltic waves are noted. Area was successfully injected with 100 units botulinum toxin. The entire examined stomach was normal. The duodenal bulb was normal. Biopsies were taken with a cold forceps for histology. Verification of patient identification for the specimen was done. Estimated blood loss: none. Impression: - Abnormal esophageal motility, suspicious for achalasia. Injected with botulinum toxin. - Normal stomach. - Normal duodenal bulb. Biopsied. Recommendation: - Discharge patient to home. - Resume previous diet. - Continue present medications. - Repeat upper endoscopy in 2 months to evaluate the response to therapy. Procedure Code(s): --- Professional --- 62162, 59, Esophagogastroduodenoscopy, flexible, transoral; with directed submucosal injection(s), any substance 53524, Esophagogastroduodenoscopy, flexible, transoral; with biopsy, single or multiple CPT copyright 2017 [employer]. All rights reserved. The codes documented in this report are preliminary and upon space and missile operations spacelift review may be revised to meet current compliance requirements. Coleman Salinas DO 01/22/2023 11:13:53 AM This report has been signed electronically. Number of Addenda: 0 Note Initiated On: 01/22/2023 10:49 AM
--- NOTE | 2023-01-22 11:15 | OP.CCLET_ITS ---
01/22/2023 Davian Pete MD [address] [place] [address] Re : Upper GI endoscopy procedure for Vineet Moise Dear Dr. Pete This procedure was performed on January. My impressions and recommendations are as follows: Impressions : - Abnormal esophageal motility, suspicious for achalasia. Injected with botulinum toxin. - Normal stomach. - Normal duodenal bulb. Biopsied. Recommendations : - Discharge patient to home. - Resume previous diet. - Continue present medications. - Repeat upper endoscopy in 2 months to evaluate the response to therapy. My findings are described in the full procedure note, which is enclosed. If I can be of further assistance, please feel free to contact me at . Sincerely, Coleman Salinas, 01/22/2023 11:13:53 AM This report has been signed electronically.
== END 2023-01-22 12:33 | disposition home or self-care (01) ==
LOC: EN 08:54 → AC 08:57
PROVIDERS: PCP Family Medicine; Referring Provider Family Medicine; Visit Provider Internal Medicine Gastroenterology
PROC: 0DJ08ZZ Inspection of Upper Intestinal Tract, Via Natural or Artificial Opening Endoscopic (ICD-10-PCS; CPT 43235; principal; 2023-01-22 09:40)
DX: K22.0 Achalasia of cardia (principal); K70.30 Alcoholic cirrhosis of liver without ascites; J44.9 Chronic obstructive pulmonary disease, unspecified; I11.0 Hypertensive heart disease with heart failure; I50.9 Heart failure, unspecified; I48.91 Unspecified atrial fibrillation; E11.9 Type 2 diabetes mellitus without complications; Z79.4 Long term (current) use of insulin; E07.9 Disorder of thyroid, unspecified; M10.9 Gout, unspecified; R13.10 Dysphagia, unspecified; G47.33 Obstructive sleep apnea (adult) (pediatric); E66.9 Obesity, unspecified; Z79.82 Long term (current) use of aspirin; Z79.899 Other long term (current) drug therapy; Z99.81 Dependence on supplemental oxygen; Z79.890 Hormone replacement therapy; Z87.891 Personal history of nicotine dependence
CPT/HCPCS: 43239; 43236; 36416; 85610; 94640; J7040; J7120; A4216; J0585; J2405; J3490

== ENCOUNTER → 2023-01-22 | Outpatient (REF) | payer MEDICARE, MEDICAID, SELFPAY ==
[2023-01-22 08:42] LABS: Prothrombin Time Fingerstick 21.6 SEC (11.7-14.9)
== END ==
LOC: OLS.SW 04:00
PROVIDERS: PCP Family Medicine; Referring Provider Family Medicine; Visit Provider Family Medicine
DX: I48.91 Unspecified atrial fibrillation (principal)
CPT/HCPCS: 36416; 85610

== ENCOUNTER → 2023-01-26 | Outpatient (REF) | payer MEDICARE, MEDICAID, SELFPAY ==
[2023-01-26 09:39] LABS: Anion Gap 9 (5-15); BUN 94 mg/dL (7-18); BUN/Creat Ratio 13.9 RATIO (10-20); Chloride 95 mmol/L (98-107); Creatinine, Serum 6.75 mg/dL (0.70-1.30); EST Glomerular Filtration Rate 9 mL/min (>60); Est Glom Filt Rate - Afr Amer 10 mL/min (>60); Glucose 359 mg/dL (74-106); Potassium 5.5 mmol/L (3.5-5.1); Sodium Level 133 mmol/L (136-145)
== END ==
LOC: OLS.SW 05:00
PROVIDERS: PCP Family Medicine; Visit Provider Family Medicine
DX: E11.22 Type 2 diabetes mellitus with diabetic chronic kidney disease (principal); N18.5 Chronic kidney disease, stage 5; I50.30 Unspecified diastolic (congestive) heart failure
CPT/HCPCS: 36415; 80048

== ENCOUNTER → 2023-01-27 | Outpatient (REF) | payer MEDICARE, MEDICAID, SELFPAY ==
[2023-01-27 11:30] LABS: Hemoglobin A1c 6.8 % (3.8-5.6)
== END ==
LOC: OLS.SW 05:00
PROVIDERS: PCP Family Medicine; Visit Provider Family Medicine
DX: E11.22 Type 2 diabetes mellitus with diabetic chronic kidney disease (principal); N18.9 Chronic kidney disease, unspecified
CPT/HCPCS: 36415; 83036; 84443

== ENCOUNTER → 2023-01-28 | Outpatient (REF) | payer MEDICARE, MEDICAID, SELFPAY ==
[2023-01-28 10:05] LABS: Anion Gap 7 (5-15); BUN 44 mg/dL (7-18); Calcium,Total 8.9 mg/dL (8.5-10.1); Chloride 92 mmol/L (98-107); Creatinine, Serum 4.39 mg/dL (0.70-1.30); EST Glomerular Filtration Rate 14 mL/min (>60); Est Glom Filt Rate - Afr Amer 17 mL/min (>60); Glucose 200 mg/dL (74-106); Potassium 3.9 mmol/L (3.5-5.1); Sodium Level 132 mmol/L (136-145)
== END ==
LOC: OLS.SW 05:00
PROVIDERS: PCP Family Medicine; Visit Provider Family Medicine
DX: E11.22 Type 2 diabetes mellitus with diabetic chronic kidney disease (principal); E03.9 Hypothyroidism, unspecified; N18.9 Chronic kidney disease, unspecified
CPT/HCPCS: 36415; 80048

== ENCOUNTER → 2023-02-05 | Outpatient (REF) | payer MEDICARE, MEDICAID, SELFPAY ==
[2023-02-05 08:46] LABS: INR Fingerstick 2.5; Prothrombin Time Fingerstick 27.2 SEC (11.7-14.9)
== END ==
LOC: OLS.SW 05:00
PROVIDERS: PCP Family Medicine; Visit Provider Family Medicine
DX: I48.91 Unspecified atrial fibrillation (principal)
CPT/HCPCS: 36416; 85610

== ENCOUNTER → 2023-02-19 | Outpatient (REF) | payer MEDICARE, MEDICAID, SELFPAY ==
[2023-02-19 10:14] LABS: INR Fingerstick 2.2; Prothrombin Time Fingerstick 24.4 SEC (11.7-14.9)
== END ==
LOC: OLS.SW 05:00
PROVIDERS: PCP Family Medicine; Visit Provider Family Medicine
DX: Z79.01 Long term (current) use of anticoagulants (principal)
CPT/HCPCS: 36416; 85610